=== PATIENT | male | born 1970 | race Hispanic/Latino ===

== ENCOUNTER 2018-06-13 14:24 | Emergency (ER) | payer MEDICARE ==
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
[2018-06-13] MEDS ORDERED: ONDANSETRON 4 MG/2 ML VIAL ONE (15:30)
[2018-06-13] MEDS ORDERED: MORPHINE 4 MG/ML SYR ONE (15:30)
[2018-06-13] MEDS ORDERED: NA CHLORIDE 0.9% 2,000 ML ONE (15:30)
[2018-06-13 16:01] LABS: Absolute Lymphocytes (CBC) 2.7 K/uL (0.7-4.9); Absolute Monocytes 0.5 K/uL (0.1-1.3); Absolute Neutrophil 3.7 K/uL (1.8-8.0); Basophils % 0.6 % (0-1.3); Hematocrit 42.6 % (39.6-49.0); MCH 28.8 pg (27.0-35.0); MPV 7.4 fL (7.6-11.3); Monocytes % 7.1 % (3.3-12.3); RBC Red Blood Cell Count 5.01 M/uL (4.33-5.43)
[2018-06-13 17:12] LABS: ALT/SGPT 13 U/L (12-78); AST/SGOT 22 U/L (15-37); Albumin 3.3 g/dL (3.4-5.0); Alkaline Phosphatase 63 U/L (45-117); Amylase Level 41 U/L (25-115); BUN Blood Urea Nitrogen 14 mg/dL (7-18); Bicarbonate 21 mmol/L (21-32); Bilirubin Direct < 0.1 mg/dL (0-0.2); Bilirubin Total 0.1 mg/dL (0.2-1.0); Glucose Level 76 mg/dL (74-106); Lipase 299 U/L (73-393); Potassium 4.3 mmol/L (3.5-5.1); Protein, Total 6.7 g/dL (6.4-8.2); Sodium Level 133 mmol/L (136-145)
[2018-06-13 17:13] LABS: Urine Blood NEGATIVE (NEG); Urine Glucose NEGATIVE (NEG); Urine Protein TRACE (NEG); Urine Specific Gravity 1.015 (1.005-1.030)
[2018-06-13 17:20] LABS: Urine Bacteria <20 /HPF (NONE SEEN); Urine Culture Reflex Order NOT NEEDED; Urine RBC <5 /HPF (NONE SEEN)
--- NOTE | 2018-06-13 19:18 | RAD REPORT ---
EXAM DESCRIPTION: CTAbdomen Pelvis W Contrast - 06/13/2018 7:02 pm CLINICAL HISTORY: Abdominal pain. right lower abdomen pain COMPARISON: Small Bowel Series dated 03/04/2018 TECHNIQUE: Biphasic CT imaging of the abdomen and pelvis was performed with 100 ml non-ionic IV cont rast. All CT scans are performed using dose optimization technique as appropriate and may include automated exposure control or mA/KV adjustment according to patient size. FINDINGS: The lung bases are clear. The liver, spleen, pancreas, adrenal glands and kidneys are within normal limits. 16 mm benign left r enal cyst. No bowel obstruction, free air, free fluid or abscess. The appendix is not identified as a discrete structure, however, no secondary findings of appendicitis are identified. No evidence of significan t lymphadenopathy. No suspicious bony findings. IMPRESSION: No acute intra-abdominal or pelvic finding.
[2018-06-13] MEDS ORDERED: DICYCLOMINE HCL 10 MG CAP ONE (19:33)
--- NOTE | 2018-06-13 19:56 | ER ---
Nurse's Notes [facility] Name: Rajat Camacho Age: 47 yrs Sex: Male : 1970 Arrival Date: 06/13/2018 Time: 14:28 Bed 26 Private MD: John Subramanian Diagnosis: Nausea and vomiting;Diarrhea, unspecified Presentation: 06/13 14:32 Presenting complaint: states: he has been hurting on his belly, RUQ, LUQ and RLL, hj comes and goes, for 6 months already; reports nausea and vomiting; reports fever and chills; diarrhea x 10 today;. Transition of care: patient was not received from another setting of care. Onset of symptoms was June 13, 2018. Risk Assessment: Do you want to hurt yourself or someone else? Patient reports no desire to harm self or others. Initial Sepsis Screen: Does the patient meet any 2 criteria? No. Patient's initial sepsis screen is negative. Does the patient have a suspected source of infection? No. Patient's initial sepsis screen is negative. Care prior to arrival: None. 14:32 Method Of Arrival: Ambulatory 14:32 Acuity: CARLIN 3 Triage Assessment: 14:37 General: Appears in no apparent distress. uncomfortable, Behavior is calm, cooperative, hj appropriate for age. Pain: Complains of pain in abdomen. GI: Reports upper abdominal pain, diarrhea, nausea. Historical: - Allergies: 14:37 No Known Drug Allergies; - Home Meds: 14:37 Depakote Oral [Active]; Topamax Oral [Active]; Phenobarbital Oral [Active]; Clonazepam Oral [Active]; carbetrol [Active]; 14:37 Janumet oral oral [Active]; Crestor oral oral [Active]; hj - PMHx: 14:37 epilepsy; - PSHx: 14:37 back surgery to correct a pinched nerve; Appendectomy; - Immunization history:: Adult Immunizations up to date. - Social history:: Smoking status: Patient/guardian denies using tobacco, Patient/guardian denies using alcohol. - Ebola Screening: : Patient negative for fever greater than or equal to 101.5 degrees Fahrenheit, and additional compatible Ebola Virus Disease symptoms Patient denies exposure to infectious person Patient denies travel to an Ebola-affected area in the days before illness onset. Screenin:38 Abuse screen: Denies threats or abuse. Denies injuries from another. Nutritional hj screening: No deficits noted. Tuberculosis screening: No symptoms or risk factors identified. Fall Risk None identified. Assessment: 14:38 GI: Bowel sounds 15:03 General: Appears uncomfortable, Behavior is calm, cooperative. Pain: Complains of pain mg2 in abdomen Pain does not radiate. Pain currently is 10 out of 10 on a pain scale. Quality of pain is described as aching, Pain began 6 months ago Is intermittent, Noted to be grimacing. Neuro: Level of Consciousness is awake, alert, obeys commands, Oriented to person, place, time, situation. Cardiovascular: Capillary refill < 3 seconds Patient's skin is warm and dry. Respiratory: Airway is patent Respiratory effort is even, unlabored, Respiratory pattern is regular, symmetrical. : No signs and/or symptoms were reported regarding the genitourinary system. EENT: No signs and/or symptoms were reported regarding the EENT system. Derm: Skin is intact, Skin is pink, warm \T\ dry. normal. Musculoskeletal: Circulation, motion, and sensation intact. 17:18 Reassessment: Patient appears in no apparent distress at this time. Patient and/or mg2 family updated on plan of care and expected duration. Pain level reassessed. Patient is alert, oriented x 3, equal unlabored respirations, skin warm/dry/pink. 18:51 Reassessment: patient in ct scan. mg2 Vital Signs: 14:38 BP 125 / 81; Pulse 89; Resp 18; Temp 98.6(TE); Pulse Ox 100% on R/A; Weight 108.86 kg; hj Height 6 ft. 2 in. (187.96 cm); Pain 10/10; 16:16 BP 118 / 68; Pulse 78; Resp 18; Pulse Ox 95% ; mg2 17:17 BP 122 / 69; Pulse 76; Resp 17; Pulse Ox 96% on R/A; Pain 3/10; mg2 19:42 BP 134 / 83; Pulse 82; Resp 18; Pulse Ox 100% on R/A; Pain 3/10; mg2 14:38 Body Mass Index 30.81 (108.86 kg, 187.96 cm) ED Course: 14:28 Patient arrived in ED. rg4 14:29 Aglieco, John, DO is Private Physician. rg4 14:34 Triage completed. hj 14:38 Arm band placed on right wrist. hj 14:38 Patient has correct armband on for positive identification. Placed in gown. Bed in low hj position. Call light in reach. Side rails up X 1. Adult w/ patient. 15:02 Dominick Renteria, ARIANNA is Primary Nurse. mg2 15:12 Tee Wilson PA is PHCP. cp 15:12 Joey Kamara MD is Attending Physician. cp 17:18 Inserted saline lock: 20 gauge in right forearm, using aseptic technique. Blood mg2 collected. 18:[address] mw3 18:51 Inserted saline lock: 22 gauge in left forearm, using aseptic technique. mg2 19:02 CT Abd/Pelvis - W/Contrast In Process Unspecified. EDMS 19:55 Robert Schultz MD is Referral Physician. cp Administered Medications: 15:39 Drug: morphine 2 mg Route: IVP; Site: right forearm; mg2 16:43 Follow up: Response: No adverse reaction; Pain is decreased mg2 15:40 Drug: NS 0.9% 1000 ml Route: IV; Rate: 1000 ml; Site: right forearm; mg2 16:43 Follow up: Response: No adverse reaction; IV Status: Completed infusion mg2 15:40 Drug: Zofran 4 mg Route: IVP; Site: right forearm; mg2 16:43 Follow up: Response: No adverse reaction; Nausea is decreased mg2 16:16 Drug: NS 0.9% 1000 ml Route: IV; Rate: 125 ml/hr; Site: right forearm; mg2 20:36 Follow up: Response: No adverse reaction; IV Status: Order to discontinue infusion mg2 19:37 Drug: Bentyl 20 mg Route: PO; mg2 20:36 Follow up: Response: No adverse reaction mg2 20:36 Drug: LoMOTIL 2 tabs Route: PO; mg2 20:36 Follow up: Response: No adverse reaction; Medication administered at discharge. mg2 Outcome: 19:55 Discharge ordered by . cp 20:38 Patient left the ED. mg2 Signatures: Dispatcher [employer] EDMS Delvin Manning RN RN hj Tee Wilson PA PA Jeri Greer rg4 Marianela Lora RN RN tl3 Dominick Renteria RN RN mg2 Emilia Longo mw3 Corrections: (The following items were deleted from the chart) 14:41 14:38 Pulse 89bpm; Resp 18bpm; Pulse Ox 100% RA; Temp 98.6F Temporal; 108.86 kg; Height hj 6 ft. 2 in.; BMI: 30.8; Pain 10/10; hj 16:24 16:23 BP 113 / 81; Pulse 76bpm; Resp 18bpm; Pulse Ox 99%; tl3 tl3
--- NOTE | 2018-06-13 19:56 | EDPHYS ---
Physician Documentation [facility] Name: Rajat Camacho Age: 47 yrs Sex: Male : 1970 Arrival Date: 06/13/2018 Time: 14:28 Bed 26 Private MD: John Subramanian ED Physician Joey Kamara HPI: 06/13 15:22 This 47 yrs old Male presents to ER via Ambulatory with complaints of cp Abdominal Pain. 15:22 The patient presents with abdominal pain in the periumbilical area. right lower cp quadrant. 15:22 Onset: The symptoms/episode began/occurred 6 month(s) ago, and became worse today. cp Historical: - Allergies: 14:37 No Known Drug Allergies; hj - Home Meds: 14:37 Depakote Oral [Active]; Topamax Oral [Active]; Phenobarbital Oral [Active]; Clonazepam hj Oral [Active]; carbetrol [Active]; 14:37 Janumet oral oral [Active]; Crestor oral oral [Active]; hj - PMHx: 14:37 epilepsy; hj - PSHx: 14:37 back surgery to correct a pinched nerve; Appendectomy; hj - Immunization history:: Adult Immunizations up to date. - Social history:: Smoking status: Patient/guardian denies using tobacco, Patient/guardian denies using alcohol. - Ebola Screening: : Patient negative for fever greater than or equal to 101.5 degrees Fahrenheit, and additional compatible Ebola Virus Disease symptoms Patient denies exposure to infectious person Patient denies travel to an Ebola-affected area in the 21 days before illness onset. ROS: 15:30 Constitutional: Negative for body aches, chills, fever, poor PO intake. cp 15:30 Eyes: Negative for injury, pain, redness, and discharge. cp Exam: 15:42 Constitutional: The patient appears in no acute distress, alert, awake, non-toxic, well cp developed, well nourished. 15:42 Head/Face: Normocephalic, atraumatic. cp 15:42 Eyes: Periorbital structures: appear normal, Conjunctiva: normal, no exudate, no injection, Sclera: no appreciated abnormality, Lids and lashes: appear normal, bilaterally. 15:42 ENT: External ear(s): are unremarkable, Nose: is normal, Mouth: Lips: moist, Oral mucosa: pink and intact, moist, Posterior pharynx: is normal, airway is patent, no erythema, no exudate. 15:42 Neck: ROM/movement: is normal, is supple, without pain, no range of motions limitations, no nuchal rigidity. 15:42 Chest/axilla: Inspection: normal, Palpation: is normal, no crepitus, no tenderness. 15:42 Cardiovascular: Rate: normal, Rhythm: regular. 15:42 Respiratory: the patient does not display signs of respiratory distress, Respirations: normal, no use of accessory muscles, no retractions, no splinting, no tachypnea, labored breathing, is not present, Breath sounds: are clear throughout, no decreased breath sounds, no stridor, no wheezing. 15:42 Abdomen/GI: Inspection: abdomen appears normal, Bowel sounds: active, all quadrants, Palpation: soft, in all quadrants, moderate abdominal tenderness, in the umbilical area and right lower quadrant, rebound tenderness, is not appreciated, voluntary guarding, is elicited in the umbilical area and right lower quadrant. 15:42 Back: CVA tenderness, is absent. 15:42 Skin: cellulitis, is not appreciated, no rash present. 15:42 Neuro: Orientation: to person, place \T\ time. Mentation: lucid, able to follow commands, Cerebellar function: is grossly normal, Motor: moves all fours, strength is normal, Sensation: no obvious gross deficits. Vital Signs: 14:38 BP 125 / 81; Pulse 89; Resp 18; Temp 98.6(TE); Pulse Ox 100% on R/A; Weight 108.86 kg; hj Height 6 ft. 2 in. (187.96 cm); Pain 10/10; 16:16 BP 118 / 68; Pulse 78; Resp 18; Pulse Ox 95% ; mg2 17:17 BP 122 / 69; Pulse 76; Resp 17; Pulse Ox 96% on R/A; Pain 3/10; mg2 19:42 BP 134 / 83; Pulse 82; Resp 18; Pulse Ox 100% on R/A; Pain 3/10; mg2 14:38 Body Mass Index 30.81 (108.86 kg, 187.96 cm) MDM: 15:12 Patient medically screened. cp 19:54 Data reviewed: vital signs, nurses notes, lab test result(s), radiologic studies, CT cp scan. 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 Response to treatment: the patient's symptoms have markedly improved after treatment, and as a result, I will discharge patient. Special discussion: Based on the patient's Hx, exam, and Dx evaluation, there is no indication for emergent surgery or inpatient Tx. It is understood by the patient/guardian that if the Sx's persist or worsen they need to return immediately for re-evaluation. 06/13 15:19 Order name: Amylase, Serum; Complete Time: 17: 06/13 15:19 Order name: Basic Metabolic Panel; Complete Time: 17: 06/13 17:26 Interpretation: Normal except: NA 133. 06/13 15:19 Order name: CBC with Diff; Complete Time: 16:18 06/13 16:19 Interpretation: Normal except: MPV 7.4. 06/13 15:19 Order name: Creatinine for Radiology; Complete Time: 17: 06/13 15:19 Order name: Hepatic Function; Complete Time: 17: 06/13 17:27 Interpretation: Normal except: BILIT 0.1; ALB 3.3; A/G 1.0. 06/13 15:19 Order name: Lipase; Complete Time: 17: 06/13 15:19 Order name: Urine Microscopic Only; Complete Time: 17: 06/13 17:27 Interpretation: Normal except: SQEPI 5-10. 06/13 15:19 Order name: CT Abd/Pelvis - W/Contrast; Complete Time: 19:24 06/13 19:24 Interpretation: Report reviewed. 06/13 17:00 Order name: Urine Dipstick--Ancillary (enter results); Complete Time: 17:26 06/13 15:19 Order name: IV Saline Lock; Complete Time: 15:24 06/13 15:19 Order name: Labs collected and sent; Complete Time: 15:24 06/13 15:19 Order name: Urine Dipstick-Ancillary (obtain specimen); Complete Time: 16:59 cp 06/13 15:53 Order name: Labs - recollect needed; Complete Time: 16:43 eb 06/13 19:25 Order name: PO challenge; Complete Time: 19:38 cp Administered Medications: 15:39 Drug: morphine 2 mg Route: IVP; Site: right forearm; mg2 16:43 Follow up: Response: No adverse reaction; Pain is decreased mg2 15:40 Drug: NS 0.9% 1000 ml Route: IV; Rate: 1000 ml; Site: right forearm; mg2 16:43 Follow up: Response: No adverse reaction; IV Status: Completed infusion mg2 15:40 Drug: Zofran 4 mg Route: IVP; Site: right forearm; mg2 16:43 Follow up: Response: No adverse reaction; Nausea is decreased mg2 16:16 Drug: NS 0.9% 1000 ml Route: IV; Rate: 125 ml/hr; Site: right forearm; mg2 20:36 Follow up: Response: No adverse reaction; IV Status: Order to discontinue infusion mg2 19:37 Drug: Bentyl 20 mg Route: PO; mg2 20:36 Follow up: Response: No adverse reaction mg2 20:36 Drug: LoMOTIL 2 tabs Route: PO; mg2 20:36 Follow up: Response: No adverse reaction; Medication administered at discharge. mg2 Disposition: 06/13/18 19:55 Discharged to Home. Impression: Nausea and vomiting, Diarrhea, unspecified. - Condition is Stable. - Discharge Instructions: Food Choices to Help Relieve Diarrhea, Adult, Diarrhea, Adult, Nausea and Vomiting, Adult. - Prescriptions for Zofran 4 mg Oral Tablet - take 1 tablet by ORAL route every 12 hours As needed; 20 tablet. Lomotil 2.5- 0.025 mg Oral Tablet - take 2 tablet by ORAL route once daily As needed; 20 tablet. - Medication Reconciliation Form, Thank You Letter, Antibiotic Education, Prescription Opioid Use form. - Follow up: Robert Schultz MD; When: 1 - 2 days; Reason: Recheck today's complaints. - Problem is an ongoing problem. - Symptoms have improved. Addendum: 06/24/2018 07:24 Co-signature as Attending Physician, Joey Kamara MD I agree with the assessment and k plan of care. Signatures: Dispatcher [employer] EDTN Joey Kamara MD MD kdr Joaquin, Delvin, RN RN hj Tee Wilson PA PA cp Kaylee Us Michele, RN RN mg2 Corrections: (The following items were deleted from the chart) 06/13 16:20 15:22 Onset: The symptoms/episode began/occurred gradually, and became worse today, cp cp 20:38 19:55 06/13/2018 19:55 Discharged to Home. Impression: Nausea and vomiting; Diarrhea, mg2 unspecified. Condition is Stable. Forms are Medication Reconciliation Form, Thank You Letter, Antibiotic Education, Prescription Opioid Use. Follow up: Robert Schultz; When: 1 - 2 days; Reason: Recheck today's complaints. Problem is an ongoing problem. Symptoms have improved. cp
[2018-06-13] MEDS ORDERED: DIPHENOX/ATROP SULF 1 TAB PO ONE (20:03)
== END 2018-06-13 20:38 | disposition home or self-care (01) ==
LOC: ER 14:24
DX: R11.2 Nausea with vomiting, unspecified (principal); R19.7 Diarrhea, unspecified
CPT/HCPCS: 36415; 74177; 80048; 80076; 82150; 83690; 85025; 96361; 96374; 96375; 99284; J2405; J7030; Q9967; 81003; 81015

== ENCOUNTER 2018-11-24 15:46 | Emergency (ER) | payer MEDICARE ==
--- OUTSIDE RECORDS SUMMARY | 2018-11-24 15:49 | XMS REPORT | Continuity of Care Document ---
:1970 Author Organization Interface Problems Problem Status Onset Classification Date Comments Source Date Reported BACK PAIN Active 10/21/20 [facility] Discharge 10/21/20 10/24/2017 [facility] Acute lumbar myofascial strain Discharge 10/21/20 10/24/2017 [facility]: [facility] Acute post-traumatic headache Diabetes Resolved Problem 10/24/2017 [facility] Epilepsia Resolved Problem 10/24/2017 [facility] High Resolved Problem 10/24/2017 [facility] Medications Medication Details Route Status Patient Ordering Order Source Instructions Provider Date Methocarbamol 1,000 mg=2 Active [facility] 500 MG Oral tab, PO, 017 [facility] Tablet [Robaxin] QID, X 3 day, # 24 tab, 0 Refill(s) tramadol 50 mg=1 Active [facility] hydrochloride 50 tab, PO, 017 [facility] Oral Tablet Q4H, PRN [Ultram] pain, X 3 day, # 20 tab, 0 Refill(s) Zofran 4 mg, Inactive [facility] Route: [address] [place] [address] IVP, Drug form: INJ, ONCE, Dosing Weight 77.273, kg, Priority: STAT, Start date: 10/21/17 8:40:00 [employer], Stop date: 10/21/17 8:40:00 [employer] Saline Flush 10 mL, Inactive [facility] 0.9% Route: [address] [place] [address] IVP, Drug Form: INJ, Dosing Weight 77.273, kg, PRN, PRN Line Flush, Start date: 10/21/17 8:40:00 [employer], Duration: 30 day, Stop date: 11/20/17 8:39:00 CSTNotes: (Same as: BD Posiflush) Morphine 4 mg, Inactive [facility] Route: [address] [place] [address] IVP, ONCE, Dosing Weight 77.273, kg, Priority: STAT, Start date: 10/21/17 8:40:00 [employer], Stop date: 10/21/17 8:40:00 [employer] Allergies, Adverse Reactions, Alerts Substance Category Reaction Severity Reaction Status Date Comments Source type Reported Immunizations Immunization Date Given Site Status Last Updated Comments Source Results Order Name Results Value Reference Date Interpretation Comments Source Range DRUG SCREEN UDS Note See Note 10/21 [facility] (10/21/17 9:59 AM) DRUG SCREEN U Phencyc Negative Negative 10/21 [facility] (10/21/17 9:59 AM) DRUG SCREEN U Cannab Scr Negative Negative 10/21 [facility] *NA* (10/21/17 9:59 AM) DRUG SCREEN U Cocaine Negative Negative 10/21 [facility]NA* (10/21/17 9:59 AM) DRUG SCREEN U Amph Scr Negative Negative 10/21 [facility] *NA* (10/21/17 9:59 AM) DRUG SCREEN U Benzodia Negative Negative 10/21 [facility]NA* (10/21/17 9:59 AM) DRUG SCREEN U Sophy Scr Positive Negative 10/21 [facility] *ABN* (10/21/17 9:59 AM) DRUG SCREEN U Opiate Scr Positive Negative 10/21 [facility] *ABN* (10/21/17 9:59 AM) URINE AND UA <=1.0 0.1 - 1.0 10/21 [facility] STOOL Urobilinogen mg/dL [facility] URINE AND UA Mucus Few /LPF None Seen 10/21 [facility] STOOL /LPF /2016 [facility] URINE AND UA WBC 1 /HPF 0 - 5 10/21 [facility] STOOL [facility] URINE AND UA RBC null 0 - 2 10/21 [facility] STOOL [facility] URINE AND UA Blood Negative Negative 10/21 [facility] STOOL [facility] (10/21/17 9:59 AM) URINE AND UA Ketones Trace Negative 10/21 [facility] STOOL mg/dL mg/dL [facility] URINE AND UA Bili Negative Negative 10/21 [facility] STOOL [facility] *NA* (10/21/17 9:59 AM) URINE AND UA Protein Negative Negative 10/21 [facility] ST[facility]OL mg/dL mg/dL [facility] URINE AND UA Glucose 50 mg/dL Negative 10/21 [facility] STOOL mg/dL /2016 [facility] URINE AND UA Spec Grav 1.024 <=1.030 10/21 [facility] URINE AND UA pH 7.0 5.0 - 8.0 10/21 [facility] URINE AND UA Nitrite Negative Negative 10/21 [facility] (10/21/17 9:59 AM) URINE AND UA Leuk Est Negative Negative 10/21 [facility] (10/21/17 9:59 AM) URINE AND UA Sq Epi Occasional Few /LPF 10/21 [facility] STOOL /LPF [facility] URINE AND UA Turbidity Slight Clear 10/21 [facility] *ABN* (10/21/17 9:59 AM) URINE AND UA Color Yellow Yellow 10/21 [facility] *NA* (10/21/17 9:59 AM) CARDIAC Total CK 371 unit/L 12 10/21 [facility] CHEM PANEL eGFR 103 10/21 Result Comment: [...] is not recommended in the following populations: [facility] 3m2 Individuals with unstable creatinine concentrations, including [...] BUN 19 mg/dL 7 - 22 10/21 Hospital CHEM PANEL Glucose Lvl 96 mg/dL 70 - 99 10/21 [facility] Hospital CHEM PANEL Creatinine 0.84 mg/dL 0.50 - 10/21 [facility] Lvl 1.40 Hospital CHEM PANEL Sodium Lvl 140 meq/L 135 - 145 10/21 Hospital CHEM PANEL Potassium 3.6 meq/L 3.5 - 5.1 10/21 Hospital CHEM PANEL Bili Total 0.2 mg/dL [...] PANEL AGAP 10.6 meq/L 10.0 - 10/21 [facility] 20.0 [facility] CHEM PANEL Globulin 4.1 g/dL 2.7 - 4.2 10/21 Hospital CHEM PANEL B/C Ratio 23 6 - 25 10/21 Hospital HEMATOLOGY MCHC 33.2 g/dL 32.0 - 10/21 [facility] 36.0 [facility] HEMATOLOGY Platelet 136 K/CMM 133 - 450 10/21 Hospital HEMATOLOGY RDW 14.5 % 11.5 - 10/21 [facility] 14.5 [facility] HEMATOLOGY MPV 7.0 fL 7.4 - 10.4 10/21 Hospital HEMATOLOGY WBC 4.8 K/CMM 3.7 - 10.4 10/21 Hospital HEMATOLOGY MCH 28.2 pg 27.0 - 10/21 [facility] 31.0 [facility] HEMATOLOGY MCV 85.1 fL 80.0 - 10/21 [facility] 94.0 Hospital HEMATOLOGY Hct 40.1 % 42.0 - 10/21 [facility] 54.0 /2016 Hospital HEMATOLOGY Hgb 13.3 g/dL 14.0 - 10/21 [facility] 18.0 /2016 Hospital HEMATOLOGY RBC 4.71 M/CMM 4.70 - 10/21 [facility] 6.10 [facility] HEMATOLOGY Segs 52.6 % 45.0 - 10/21 [facility] 75.0 /2016 Hospital HEMATOLOGY Monocytes 7.9 % 2.0 - 12.0 10/21 [facility] /2016 Hospital HEMATOLOGY Lymphocytes 38.4 % 20.0 - 10/21 [facility] 40.0 /2016 Hospital HEMATOLOGY Segs-Bands # 2.5 K/CMM 1.5 - 8.1 10/21 [facility] /2016 [facility] HEMATOLOGY Monocytes # 0.4 K/CMM 0.0 - 0.8 10/21 [facility] HEMATOLOGY Eosinophils 0.7 % 0.0 - 4.0 10/21 [facility] HEMATOLOGY Basophils 0.4 % 0.0 - 1.0 10/21 [facility] HEMATOLOGY Lymphocytes 1.9 K/CMM 1.0 - 5.5 10/21 [facility] # /2016 Hospital TOXICOLOGY Etoh (%) null 10/21 [facility] TOXICOLOGY Ethanol Lvl null 10/21 [facility] TOXICOLOGY Valproic 79 ug/ml 50 - 100 10/21 [facility] Acid Lvl /2016 [facility] Spine Spine lumbar Study: Spine lumbar series DX 10/21/2017 8:40 AM [employer] - [facility] lumbar series DX - Hospital series DX Patient Name: STACI OLMSTEAD MR: [id number] Read by: Ortega Desai MD Dictated Date/time: [...] arthrosis without acute fracture or dislocation. SL: [id number] Brain wo Brain wo STUDY: Brain wo contrast CT 10/21/2017 8:40 AM [employer] 10/21 - [facility] contrast CT contrast CT /2016 - [facility] Ordering Physician: Diana Gonzalez VOCATIONAL COUNSELOR Read by: Ortega Desai MD Dictated Date/time: 10/21/17 09:07 Patient Name: STACI OLMSTEAD MR: [id number] Electronically Signed by: Ortega Desai MD 10/21/17 [...] appropriate atrophy without acute intracranial abnormality. SL: [id number] Vital Signs Vital Sign Value Date Comments Source Respitory Rate 18 10/21/2017 [facility] Heart Rate 87 10/21/2017 [facility] Systolic (mm Hg) 142 10/21/2017 [facility] Diastolic (mm Hg) 86 10/21/2017 [facility] Temperature Oral (F) 98.8 F 10/21/2017 [facility] Temperature Oral (F) 99 F 10/21/2017 [facility] Heart Rate 86 10/21/2017 [facility] Respitory Rate 18 10/21/2017 [facility] Height 170.18 cm 10/21/2017 [facility] Systolic (mm Hg) 152 10/21/2017 [facility] Diastolic (mm Hg) 78 10/21/2017 [facility] Weight 77.273 10/21/2017 [facility] BMI Calculated 26.68 10/21/2017 [facility] Encounters Location Location Encounter Encounter Reason Attending ADM DC Status Source Details Type Number For Provider Date [id number] [facility] 10[facility]21 10/21 [facility] Asael Penan /2016 [facility] Procedures Procedure Code Date Perfomer Comments Source History of [id number] [facility] Procedure<sup>1</sup> [id number] back surgery [facility]
[2018-11-24 16:28] LABS: Absolute Lymphocytes (CBC) 1.6 K/uL (0.7-4.9); Absolute Monocytes 0.4 K/uL (0.1-1.3); Absolute Neutrophil 2.2 K/uL (1.8-8.0); Basophils % 0.3 % (0-1.3); Eosinophils % 1.3 % (0-4.4); Hematocrit 40.8 % (39.6-49.0); Lymphocytes % 38.7 % (15.3-44.8); MPV 7.3 fL (7.6-11.3); Monocytes % 8.4 % (3.3-12.3); RBC Red Blood Cell Count 4.63 M/uL (4.33-5.43)
[2018-11-24 16:39] LABS: ALT/SGPT 15 U/L (12-78); AST/SGOT 17 U/L (15-37); Albumin 3.2 g/dL (3.4-5.0); Alkaline Phosphatase 75 U/L (45-117); BUN Blood Urea Nitrogen 13 mg/dL (7-18); Bicarbonate 26 mmol/L (21-32); Bilirubin Direct < 0.1 mg/dL (0-0.2); Bilirubin Total 0.1 mg/dL (0.2-1.0); Glucose Level 82 mg/dL (74-106); Sodium Level 144 mmol/L (136-145)
[2018-11-24 16:39] LABS: Barbiturates POSITIVE (NEGATIVE); Benzodiazepines NEGATIVE (NEGATIVE); Cocaine NEGATIVE (NEGATIVE); METHAMPHETAM NEGATIVE (NEGATIVE); Methadone NEGATIVE (NEGATIVE); Opiates NEGATIVE (NEGATIVE); Phencyclidine NEGATIVE (NEGATIVE); THC Cannibis NEGATIVE (NEGATIVE)
--- NOTE | 2018-11-24 17:03 | RAD REPORT ---
EXAM DESCRIPTION: CT - [id number] - 11/24/2018 4:47 pm CLINICAL HISTORY: Trauma, head and neck injury. PAIN COMPARISON: <Comparisons> TECHNIQUE: Axial 5 mm thick images of the head were obtained. Axial 2 mm thick images of the cervical spine were obtained with sagittal and coronal reconstruction images generated and reviewed. All CT scans are performed using dose optimization technique as appropriate and may include automated exposure control or mA/KV adjustment according to patient size. FINDINGS: CT HEAD WITHOUT CONTRAST: No acute hemorrhage, hydrocephalus or extra-axial collection is identified.No areas of brain edema or midline shift. The paranasal sinuses and mastoids are clear.The calvarium is intact. Left posterior scalp hematoma n oted. CT CERVICAL SPINE WITHOUT CONTRAST: No fracture or subluxation.Mild lower cervical degenerative changes.No prevertebral soft tissues swel ling is identified. IMPRESSION: No acute intracranial or cervical spine findings.
--- NOTE | 2018-11-24 17:28 | RAD REPORT ---
EXAM DESCRIPTION: RAD - Pelvis - 11/24/2018 5:03 pm CLINICAL HISTORY: TRAUMA Pain COMPARISON: None FINDINGS: AP pelvis and right hip, multiple views are submitted. Prominent osteoarthritis is present in both hips. No acute fracture is discerned.
[2018-11-24 17:29] LABS: Urine Blood NEGATIVE (NEG); Urine Glucose NEGATIVE (NEG); Urine Protein 2+ (NEG); Urine Specific Gravity 1.025 (1.005-1.030)
--- NOTE | 2018-11-24 18:03 | ER ---
Nurse's Notes [facility] Name: Rajat Camacho Age: 48 yrs Sex: Male : 1970 Arrival Date: 11/24/2018 Time: 15:48 Bed 26 Private MD: Diagnosis: Syncope and collapse;Laceration without foreign body of scalp Presentation: 11/24 15:49 Presenting complaint: EMS states: He was at a green party and fell and now has a laceration ed1 on his head. He has a history of seizures and they are not sure if he had a seizure or slipped. Transition of care: patient was not received from another setting of care. Complicating Factors: There are no complicating factors for this patient. Onset of symptoms was November 24, 2018. Risk Assessment: Do you want to hurt yourself or someone else? Patient reports no desire to harm self or others. Initial Sepsis Screen: Does the patient meet any 2 criteria? No. Patient's initial sepsis screen is negative. Does the patient have a suspected source of infection? No. Patient's initial sepsis screen is negative. Care prior to arrival: None. 15:49 Method Of Arrival: EMS: [facility] ed1 16:14 Acuity: CARLIN 3 iw Triage Assessment: 15:54 General: Appears in no apparent distress. Behavior is calm, cooperative. Pain: ed1 Complains of pain in occipital area Pain does not radiate. Pain currently is 6 out of 10 on a pain scale. Quality of pain is described as aching, Pain began suddenly, 30 min ago. Injury Description: Laceration sustained to occipital area is contaminated, 2.6 to 7.5 cm long, was sustained 30-60 minutes ago. is bleeding a small amount a dressing was applied. Historical: - Allergies: 15:54 PENICILLINS; ed1 - Home Meds: 15:54 Clonazepam Oral [Active]; Crestor Oral [Active]; Depakote Oral [Active]; Janumet Oral ed1 [Active]; phenobarbital Oral [Active]; Topamax Oral [Active]; - PMHx: 15:54 Seizures; ed1 - PSHx: 15:54 back surgery to correct a pinched nerve; Appendectomy; ed1 - Immunization history:: Adult Immunizations up to date. - Social history:: Smoking status: Patient/guardian denies using tobacco. - Ebola Screening: : Patient negative for fever greater than or equal to 101.5 degrees Fahrenheit, and additional compatible Ebola Virus Disease symptoms Patient denies exposure to infectious person Patient denies travel to an Ebola-affected area in the 21 days before illness onset. Screenin:57 Abuse screen: Denies threats or abuse. Denies injuries from another. Nutritional ed1 screening: No deficits noted. Tuberculosis screening: No symptoms or risk factors identified. Fall Risk Fall in past 12 months (25 points). Secondary diagnosis (15 points) seizures, No IV (0 pts). Ambulatory Aid- None/Bed Rest/Nurse Assist (0 pts). Gait- Normal/Bed Rest/Wheelchair (0 pts) Mental Status- Overestimates/Forgets Limitations (15 pts.). Total Victoria Fall Scale indicates High Risk Score (45 or more points). Fall prevention measures have been instituted. Side Rails Up X 2 Placed Close to Nursing Station Frequent Obs/Assessments Occuring Family Present and informed to notify staff if the need to leave the bedside As available patient and family educated on Fall Prevention Program and Strategies. Assessment: 15:57 General: Appears in no apparent distress. Behavior is calm, cooperative. Pain: ed1 Complains of pain in occipital area Pain does not radiate. Pain currently is 6 out of 10 on a pain scale. Quality of pain is described as aching, Pain began suddenly, 30 min ago. Is continuous. Neuro: Level of Consciousness is awake, alert, Oriented to person, place, reports this is normal orientation for the patient.. Cardiovascular: Denies chest pain, Heart tones S1 S2 present. Respiratory: Airway is patent Respiratory effort is even, unlabored, Respiratory pattern is regular, symmetrical, Breath sounds are clear bilaterally. GI: Patient currently denies nausea, vomiting. : No signs and/or symptoms were reported regarding the genitourinary system. EENT: No signs and/or symptoms were reported regarding the EENT system. Derm: Skin is healthy with good turgor, Skin is dry, Skin is normal, Skin temperature is warm. Musculoskeletal: Circulation, motion, and sensation intact. Capillary refill < 3 seconds, in bilateral fingers. Range of motion: intact in all extremities. Injury Description: Laceration sustained to occipital area is contaminated, 0.5 to 2.5 cm long, was sustained 30-60 minutes ago. is bleeding a small amount a dressing was applied. 16:05 Reassessment: Patient appears in no apparent distress at this time. I agree with above iw assessment by Matthew Preston LVN. 17:04 Reassessment: Patient appears in no apparent distress at this time. No changes from ed1 previously documented assessment. Patient and/or family updated on plan of care and expected duration. Pain level reassessed. Neuro: Level of Consciousness is awake, alert, obeys commands, Oriented to person, place. 17:09 Reassessment: Nuzhat [phone]. ed1 18:15 Reassessment: Patient appears in no apparent distress at this time. No changes from ed1 previously documented assessment. Patient and/or family updated on plan of care and expected duration. Pain level reassessed. Patient is alert, oriented x 3, equal unlabored respirations, skin warm/dry/pink. Vital Signs: 15:54 BP 153 / 87; Pulse 93; Resp 18; Temp 98.8(O); Pulse Ox 99% on R/A; Weight 104.33 kg ed1 (R); Height 6 ft. 0 in. (182.88 cm) (R); Pain 6/10; 16:24 BP 132 / 80; Pulse 89; Resp 16; Pulse Ox 98% on R/A; mt 17:04 BP 136 / 81; Pulse 95; Resp 18; Pulse Ox 98% on R/A; Pain 6/10; ed1 18:04 BP 134 / 75; Pulse 89; Resp 16; Pulse Ox 98% on R/A; mt 18:15 BP 129 / 76; Pulse 83; Resp 17; Temp 97.9(O); Pulse Ox 100% on R/A; Pain 4/10; ed1 15:54 Body Mass Index 31.19 (104.33 kg, 182.88 cm) ed1 ED Course: 15:48 Patient arrived in ED. ed1 15:50 Johnnie Wilkerson PA is PHCP. jr8 15:50 Tee Duncan MD is Attending Physician. jr8 15:54 Arm band placed on right wrist. ed1 15:57 Patient has correct armband on for positive identification. Bed in low position. Call ed1 light in reach. Side rails up X2. Seizure precautions initiated. Pulse ox on. NIBP on. 16:00 Adelita Preston LVN is Primary Nurse. ed1 16:14 Triage completed. iw 16:47 CT Head C Spine In Process Unspecified. EDMS 17:02 X-ray completed. Patient tolerated procedure well. Patient moved back from radiology. sg4 17:03 XRAY Pelvis In Process Unspecified. EDMS 17:03 XRAY Hip RIGHT 2 view In Process Unspecified. EDMS 17:12 Basic Metabolic Panel Sent. ed1 17:12 Acetaminophen Sent. ed1 17:13 Salicylate Sent. ed1 18:15 No provider procedures requiring assistance completed. Patient did not have IV access ed1 during this emergency room visit. Administered Medications: No medications were administered Point of Care Testing: Blood Glucose: 16:17 Blood Glucose: 87 mg/dL; ed1 Ranges: Outcome: 18:03 Discharge ordered by MD. pittman 18:15 Discharged to home via wheelchair, with family. ed1 18:15 Condition: good 18:15 Discharge instructions given to patient, family, Instructed on discharge instructions, follow up and referral plans. wound care, Demonstrated understanding of instructions, follow-up care, wound care. 18:16 Patient left the ED. ed1 Signatures: Dispatcher [employer] Ely Tovar RN RN iw Adelita Preston LVN LVN ed1 Johnnie Wilkerson PA PA jr8 Thompson, Moriah mt Garcia, Susana sg4
--- NOTE | 2018-11-24 18:04 | EDPHYS ---
Physician Documentation [facility] Name: Rajat Camacho Age: 48 yrs Sex: Male : 1970 Arrival Date: 11/24/2018 Time: 15:48 Bed 26 Private MD: ED Physician Tee Duncan HPI: 11/24 17:03 This 48 yrs old Male presents to ER via EMS with complaints of Laceration To jr8 Head. 17:03 The patient has experienced syncope, collapsed, lost consciousness. Onset: The jr8 symptoms/episode began/occurred acutely, today. Duration: This was a single episode, that lasted 10 second(s). Context: the episode(s) was witnessed, by family, occurred at home, occurred while the patient was standing, Just prior to the episode the patient experienced no apparent symptoms. Associated injury: Head/face: laceration, 5 cm(s). Associated signs and symptoms: The patient has no apparent associated signs or symptoms. Current symptoms: Currently, the patient is not experiencing any symptoms, the patient feels back to baseline, no decreased level of consciousness, no confusion, no dysphasia, no headache, no paralysis, no visual changes. The patient has not experienced similar symptoms in the past. The patient has not recently seen a physician. Patient with seizure history. Was at a democrat standing and talking. Collapsed all of a sudden. No focal or general shaking per family member. Stated that this was not like his other seizures in the past. Has been compliant with his medications. Denies any preceding events. Family stated that patient is at baseline now. Complains of pain to back of head and groin pain . Historical: - Allergies: 15:54 PENICILLINS; ed1 - Home Meds: 15:54 Clonazepam Oral [Active]; Crestor Oral [Active]; Depakote Oral [Active]; Janumet Oral ed1 [Active]; phenobarbital Oral [Active]; Topamax Oral [Active]; - PMHx: 15:54 Seizures; ed1 - PSHx: 15:54 back surgery to correct a pinched nerve; Appendectomy; ed1 - Immunization history:: Adult Immunizations up to date. - Social history:: Smoking status: Patient/guardian denies using tobacco. - Ebola Screening: : Patient negative for fever greater than or equal to 101.5 degrees Fahrenheit, and additional compatible Ebola Virus Disease symptoms Patient denies exposure to infectious person Patient denies travel to an Ebola-affected area in the 21 days before illness onset. ROS: 17:53 Eyes: Negative for injury, pain, redness, and discharge, ENT: Negative for injury, jr8 pain, and discharge, Neck: Negative for injury, pain, and swelling, Cardiovascular: Negative for chest pain, palpitations, and edema, Respiratory: Negative for shortness of breath, cough, wheezing, and pleuritic chest pain, Abdomen/GI: Negative for abdominal pain, nausea, vomiting, diarrhea, and constipation, Back: Negative for injury and pain. 17:53 MS/extremity: Positive for pain, tenderness, of the right hip. 17:53 Skin: Positive for laceration(s), of the scalp. 17:53 Neuro: Positive for headache, loss of consciousness, syncope. Exam: 17:53 Eyes: Pupils equal round and reactive to light, extra-ocular motions intact. Lids and jr8 lashes normal. Conjunctiva and sclera are non-icteric and not injected. Cornea within normal limits. Periorbital areas with no swelling, redness, or edema. ENT: Nares patent. No nasal discharge, no septal abnormalities noted. Tympanic membranes are normal and external auditory canals are clear. Oropharynx with no redness, swelling, or masses, exudates, or evidence of obstruction, uvula midline. Mucous membranes moist. Neck: Trachea midline, no thyromegaly or masses palpated, and no cervical lymphadenopathy. Supple, full range of motion without nuchal rigidity, or vertebral point tenderness. No Meningismus. Cardiovascular: Regular rate and rhythm with a normal S1 and S2. No gallops, murmurs, or rubs. Normal PMI, no JVD. No pulse deficits. Respiratory: Lungs have equal breath sounds bilaterally, clear to auscultation and percussion. No rales, rhonchi or wheezes noted. No increased work of breathing, no retractions or nasal flaring. Abdomen/GI: Soft, non-tender, with normal bowel sounds. No distension or tympany. No guarding or rebound. No evidence of tenderness throughout. Back: No spinal tenderness. No costovertebral tenderness. Full range of motion. Skin: Warm, dry with normal turgor. Normal color with no rashes, no lesions, and no evidence of cellulitis. Neuro: Awake and alert, GCS 15, oriented to person, place, time, and situation. Cranial nerves II-XII grossly intact. Motor strength 5/5 in all extremities. Sensory grossly intact. Cerebellar exam normal. Normal gait. 17:53 Head/face: Noted is a laceration(s), that is jagged, 5 cm(s), of the occipital area. 17:53 Musculoskeletal/extremity: Extremities: grossly normal except: noted in the right hip: pain, tenderness, ROM: intact in all extremities, full active range of motion, full passive range of motion, limited active range of motion due to pain, limited passive range of motion due to pain, Circulation is intact in all extremities. Sensation intact. Weight bearing: able to fully bear weight. Vital Signs: 15:54 BP 153 / 87; Pulse 93; Resp 18; Temp 98.8(O); Pulse Ox 99% on R/A; Weight 104.33 kg ed1 (R); Height 6 ft. 0 in. (182.88 cm) (R); Pain 6/10; 16:24 BP 132 / 80; Pulse 89; Resp 16; Pulse Ox 98% on R/A; mt 17:04 BP 136 / 81; Pulse 95; Resp 18; Pulse Ox 98% on R/A; Pain 6/10; ed1 18:04 BP 134 / 75; Pulse 89; Resp 16; Pulse Ox 98% on R/A; mt 18:15 BP 129 / 76; Pulse 83; Resp 17; Temp 97.9(O); Pulse Ox 100% on R/A; Pain 4/10; ed1 15:54 Body Mass Index 31.19 (104.33 kg, 182.88 cm) ed1 MDM: 15:50 Patient medically screened. [facility] 17:53 Data reviewed: vital signs, nurses notes, lab test result(s), EKG, radiologic studies, jr8 CT scan, plain films. Data interpreted: Pulse oximetry: on room air is 98 %. Interpretation: normal. Counseling: I had a detailed discussion with the patient and/or guardian regarding: the historical points, exam findings, and any diagnostic results supporting the discharge/admit diagnosis, lab results, radiology results, the need for outpatient follow up, a family practitioner, to return to the emergency department if symptoms worsen or persist or if there are any questions or concerns that arise at home. Response to treatment: the patient's symptoms have resolved after treatment. ED course: Patient continues to be stable. No chest pain, shortness of breath, numbness, tingling, dizziness, or near syncope feeling. Vitals have remained stable. ECG unremarkable. Labs and imaging without acute finding. Will send home with close return precautions . 11/24 16:01 Order name: Acetaminophen iw 11/24 16:01 Order name: Basic Metabolic Panel iw 11/24 16:01 Order name: CBC with Diff; Complete Time: 16:31 iw 11/24 16:01 Order name: ETOH Level; Complete Time: 16:51 iw 11/24 16:01 Order name: Hepatic Function; Complete Time: 16:51 iw 11/24 16:01 Order name: PT-INR; Complete Time: 16:51 iw 11/24 16:01 Order name: Ptt, Activated; Complete Time: 16:51 iw 11/24 16:01 Order name: Salicylate; Complete Time: 17:22 iw 11/24 16:01 Order name: Urine Drug Screen; Complete Time: 16:51 iw 11/24 16:02 Order name: Acetaminophen Level; Complete Time: 16:51 EDMS 11/24 16:02 Order name: Basic Metabolic Panel; Complete Time: 16:51 EDMS 11/24 16:12 Order name: Troponin (emerg Dept Use Only); Complete Time: 18:04 8 11/24 16:33 Order name: Urine Dipstick--Ancillary (enter results); Complete Time: 17:35 ag 11/24 16:01 Order name: EKG; Complete Time: 16:02 iw 11/24 16:01 Order name: EKG - Nurse/Tech; Complete Time: 16:17 iw 11/24 16:01 Order name: Labs collected and sent; Complete Time: 16:18 iw 11/24 16:01 Order name: Urine Dipstick-Ancillary (obtain specimen); Complete Time: 16:17 iw 11/24 16:12 Order name: Glucose Level; Complete Time: 16:17 jr8 11/24 16:16 Order name: CT Head C Spine; Complete Time: 17:10 jr8 11/24 16:16 Order name: XRAY Pelvis; Complete Time: 17:35 8 11/24 16:16 Order name: XRAY Hip RIGHT 2 view jr8 Administered Medications: No medications were administered Point of Care Testing: Blood Glucose: 16:17 Blood Glucose: 87 mg/dL; ed1 Ranges: Critical Glucose Levels:Adult <50 mg/dl or >400 mg/dl <40 mg/dl or >180 mg/dl Disposition: 11/25 07:22 Co-signature as Attending Physician, Tee Duncan MD I agree with the assessment and michi plan of care. Disposition: 11/24/18 18:03 Discharged to Home. Impression: Syncope and collapse, Laceration without foreign body of scalp. - Condition is Stable. - Discharge Instructions: Laceration Care, Adult, Syncope. - Medication Reconciliation Form, Thank You Letter, Antibiotic Education, Prescription Opioid Use form. - Follow up: Private Physician; When: 1 - 2 days; Reason: Recheck today's complaints, Continuance of care, Re-evaluation by your physician. - Problem is new. - Symptoms have improved. - Notes: [place] to be taken out in 7 days Signatures: Dispatcher [employer] EDAZ Tee Duncan MD MD cha Williams, Irene, RN RN Adelita Preston, GENETIC SCIENTIST GENETIC SCIENTIST ed1 Johnnie Wilkerson PA PA jr8 Corrections: (The following items were deleted from the chart) 11/24 17:10 17:03 Patient with seizure history . jr8 jr8 18:14 16:01 IV Saline Lock ordered. ed1 18:16 18:03 11/24/2018 18:03 Discharged to Home. Impression: Syncope and collapse; Laceration ed1 without foreign body of scalp. Condition is Stable. Forms are Medication Reconciliation Form, Thank You Letter, Antibiotic Education, Prescription Opioid Use. Follow up: Private Physician; When: 1 - 2 days; Reason: Recheck today's complaints, Continuance of care, Re-evaluation by your physician. Problem is new. Symptoms have improved. jr8
--- NOTE | 2018-11-25 06:26 | EKG ---
Test Date: 2018-11-24 Test Time: 16:13:21 Clinical Laboratory Technician: MARCIE MEASUREMENT RESULTS: Intervals: Rate: 86 VA: 130 QRSD: 90 QT: 348 QTc: 416 Anderson: P: 36 VA: 130 QRS: 88 T: -37 INTERPRETIVE STATEMENTS: Normal sinus rhythm Cannot rule out Inferior infarct, age undetermined Abnormal ECG Compared to ECG 01/19/2015 13:38:01 Myocardial infarct finding now present Electronically Signed On 11-25-18 06:18:55 PHOTOGRAPHIC SPECIALIST by Scott Luna
--- NOTE | 2018-11-25 09:11 | RAD REPORT ---
EXAM DESCRIPTION: RAD - Hip Right 2 View - 11/24/2018 5:03 pm CLINICAL HISTORY: TRAUMA Pain COMPARISON: None FINDINGS: AP pelvis and right hip, multiple views are submitted. Prominent osteoarthritis is present in both hips. No acute fracture is discerned.
== END 2018-11-24 18:16 | disposition home or self-care (01) ==
LOC: ER 15:46
DX: S01.01XA Laceration without foreign body of scalp, initial encounter (principal); R55 Syncope and collapse; M16.0 Bilateral primary osteoarthritis of hip; R94.31 Abnormal electrocardiogram [ECG] [EKG]; R56.9 Unspecified convulsions; Z79.899 Other long term (current) drug therapy
CPT/HCPCS: 36415; 70450; 72125; 72170; 80048; 80076; 80307; 80320; 80329; 81003; 82962; 84484; 85025; 85610; 85730; 93005; 99284

== ENCOUNTER 2021-04-28 21:35 | Observation (INO) | payer MEDICARE ==
[2021-04-28 22:53] LABS: Absolute Lymphocytes (CBC) 3.3 K/uL (0.7-4.9); Basophils % 1.1 % (0-1.3); Hematocrit 37.2 % (39.6-49.0); Lymphocytes % 45.2 % (15.3-44.8); MPV 7.7 fL (7.6-11.3); RBC Red Blood Cell Count 4.26 M/uL (4.33-5.43)
--- NOTE | 2021-04-28 22:55 | EDPHYS ---
Physician Documentation [facility] Name: Rajat Camacho Age: 50 yrs Sex: Male : 1970 Arrival Date: 04/28/2021 Time: 21:39 Bed 14 Private MD: John Subramanian ED Physician Tee Duncan HPI: 04/28 22:45 This 50 yrs old Male presents to ER via Ambulatory with complaints of Chest michi Pain. 22:45 The patient or guardian reports chest pain that is located primarily in the substernal michi area, anterior chest wall, left. Onset: 5 day(s) ago. The pain does not radiate. Associated signs and symptoms: Pertinent positives: lightheadedness, shortness of breath. The chest pain is described as a pressure, squeezing. Duration: The patient or guardian reports multiple episodes, that wax and wane, with no pattern. Modifying factors: The symptoms are alleviated by nothing. the symptoms are aggravated by nothing. Severity of pain: At its worst the pain was mild moderate in the emergency department the pain has improved. The patient has not experienced similar symptoms in the past. Historical: - Allergies: 21:59 PENICILLINS; bb - Home Meds: 21:59 carbetrol [Active]; Clonazepam Oral [Active]; Crestor Oral [Active]; Depakote Oral bb [Active]; Janumet Oral [Active]; phenobarbital Oral [Active]; Topamax Oral [Active]; - PMHx: 21:59 epilepsy; Seizures; Diabetes - NIDDM; bb - PSHx: 21:59 Appendectomy; back surgery to correct a pinched nerve; bb - Immunization history:: Adult Immunizations up to date, Client reports receiving the 2nd dose of the Covid vaccine. - Social history:: Smoking status: Patient denies any tobacco usage or history of. - Family history:: not pertinent. ROS: 22:45 Constitutional: Negative for fever, chills, and weight loss, Eyes: Negative for injury, michi pain, redness, and discharge, ENT: Negative for injury, pain, and discharge, Neck: Negative for injury, pain, and swelling, Respiratory: Negative for shortness of breath, cough, wheezing, and pleuritic chest pain, Abdomen/GI: Negative for abdominal pain, nausea, vomiting, diarrhea, and constipation, Back: Negative for injury and pain, : Negative for injury, bleeding, discharge, and swelling, MS/Extremity: Negative for injury and deformity, Skin: Negative for injury, rash, and discoloration, Neuro: Negative for headache, weakness, numbness, tingling, and seizure, Psych: Negative for depression, anxiety, suicide ideation, homicidal ideation, and hallucinations, Allergy/Immunology: Negative for hives, rash, and allergies, Endocrine: Negative for neck swelling, polydipsia, polyuria, polyphagia, and marked weight changes, Hematologic/Lymphatic: Negative for swollen nodes, abnormal bleeding, and unusual bruising. 22:45 Cardiovascular: Positive for chest pain. Exam: 22:45 Constitutional: This is a well developed, well nourished patient who is awake, alert, michi and in no acute distress. Head/Face: Normocephalic, atraumatic. Eyes: Pupils equal round and reactive to light, extra-ocular motions intact. Lids and lashes normal. Conjunctiva and sclera are non-icteric and not injected. Cornea within normal limits. Periorbital areas with no swelling, redness, or edema. ENT: Nares patent. No nasal discharge, no septal abnormalities noted. Tympanic membranes are normal and external auditory canals are clear. Oropharynx with no redness, swelling, or masses, exudates, or evidence of obstruction, uvula midline. Mucous membranes moist. Neck: Trachea midline, no thyromegaly or masses palpated, and no cervical lymphadenopathy. Supple, full range of motion without nuchal rigidity, or vertebral point tenderness. No Meningismus. Chest/axilla: Normal chest wall appearance and motion. Nontender with no deformity. No lesions are appreciated. Respiratory: Lungs have equal breath sounds bilaterally, clear to auscultation and percussion. No rales, rhonchi or wheezes noted. No increased work of breathing, no retractions or nasal flaring. Abdomen/GI: Soft, non-tender, with normal bowel sounds. No distension or tympany. No guarding or rebound. No evidence of tenderness throughout. Back: No spinal tenderness. No costovertebral tenderness. Full range of motion. Male : Normal genitalia with no discharge or lesions. Skin: Warm, dry with normal turgor. Normal color with no rashes, no lesions, and no evidence of cellulitis. 22:45 Cardiovascular: Rate: normal, Rhythm: regular, Pulses: Pulses are 4+ in bilateral radial, brachial, femoral, popliteal, posterior tibial and and dorsalis pedis arteries.. Heart sounds: normal, Edema: is not appreciated, JVD: is not appreciated. 22:45 ECG was reviewed by the Attending Physician. Vital Signs: 21:56 BP 143 / 83; Pulse 86; Resp 18 S; Temp 98.8(O); Pulse Ox 99% on R/A; Weight 108.86 kg bb (R); Height 6 ft. 2 in. (187.96 cm); Pain 9/10; 23:30 BP 142 / 88; Pulse 82; Resp 18; Pulse Ox 98% on R/A; jb4 04/29 00:30 BP 160 / 108; Pulse 79; Resp 16; Pulse Ox 99% on R/A; jb4 01:45 BP 166 / 113; Pulse 81; Resp 16; Pulse Ox 98% on R/A; jb4 04/28 21:56 Body Mass Index 30.81 (108.86 kg, 187.96 cm) bb MDM: 04/28 22:03 Patient medically screened. michi 22:51 Differential diagnosis: abnormal EKG, acute myocardial infarction, anxiety, coronary michi artery disease chest wall pain, congestive heart failure cholecystitis, Cholelithiasis costochondritis, herpes zoster, hiatal hernia, myocarditis, pancreatitis, pericarditis, pleurisy, pulmonary embolus, stable angina. HEART Score: History: Moderately Suspicious (1), ECG: Non specific repolarization disturbance / LBTB / PM (1), Age: > 45 and < 65 years (1), Risk Factors: > or = 3 Risk factors for atherosclerotic disease (2), [Hypercholesterolemia] [DM] [+ Family HX] Troponin: < or = 1 x Normal Limit (0), Total Score = 5. The patient was given aspirin in the Emergency Department. The patient's deep vein thrombosis risk score was calculated as follows: Total Score: 0. This patient was found to be at low risk for a deep vein thrombosis by using the Well's assessment criteria. The patient's pulmonary embolism risk score was calculated as follows: Total Score: 0-2 points. This patient was found to be at low risk for a pulmonary embolism by using the Well's assessment criteria. HUGO Risk Score: TOTAL SCORE = 0. Data reviewed: vital signs, nurses notes, lab test result(s), EKG, radiologic studies, plain films. Data interpreted: special education educational assistant: rate is 86 beats/min, rhythm is regular, Pulse oximetry: on room air is 86 %. Test interpretation: by ED physician or midlevel provider: ECG, plain radiologic studies. Counseling: I had a detailed discussion with the patient and/or guardian regarding: the historical points, exam findings, and any diagnostic results supporting the discharge/admit diagnosis, lab results, radiology results, the need for further work-up and treatment in the hospital. 04/28 22:06 Order name: Basic Metabolic Panel; Complete Time: 23:18 [facility] 04/28 22:06 Order name: CBC with Diff; Complete Time: 23:18 [facility] 04/28 22:06 Order name: LFT's; Complete Time: 23:18 [facility] 04/28 22:06 Order name: Magnesium; Complete Time: 23:18 [facility] 04/28 22:06 Order name: NT PRO-BNP; Complete Time: 23:18 [facility] 04/28 22:06 Order name: PT-INR; Complete Time: 23:18 [facility] 04/28 22:06 Order name: Troponin (emerg Dept Use Only); Complete Time: 23:18 [facility] 04/28 22:06 Order name: XRAY Chest (1 view) [facility] 04/28 22:06 Order name: Lipase; Complete Time: 23:18 [facility] 04/28 22:06 Order name: Phenobarbital; Complete Time: 23:18 [facility] 04/28 22:06 Order name: Depakote; Complete Time: 23:18 [facility] 04/28 23:55 Order name: CT Chest For PE Angio [facility] 04/29 00:12 Order name: SARS-COV-2 RT PCR [facility] 04/28 22:06 Order name: EKG; Complete Time: 22:07 [facility] 04/28 22:06 Order name: Cardiac monitoring; Complete Time: 22:37 [facility] 04/28 22:06 Order name: EKG - Nurse/Tech; Complete Time: 22:37 [facility] 04/28 22:06 Order name: IV Saline Lock; Complete Time: 22:37 [facility] 04/28 22:06 Order name: Labs collected and sent; Complete Time: 22:37 [facility] 04/28 22:06 Order name: O2 Per Protocol; Complete Time: 22:37 michi 04/28 22:06 Order name: O2 Sat Monitoring; Complete Time: 22:37 [facility] EC:45 Rate is 86 beats/min. Rhythm is regular. QRS [place] is Normal. MA interval is normal. QRS michi interval is normal. QT interval is normal. No Q waves. T waves are Normal. ST Segment is depressed in leads II, III, aVF, V4, V5, V6. Administered Medications: 23:16 Drug: Aspirin Chewable Tablet 324 mg Route: PO; 04/29 00:41 Follow up: Response: No adverse reaction [facility] 04/28 23:16 Drug: Lopressor (metoprolol TARTRATE) 50 mg Route: PO; [facility] 04/29 00:40 Follow up: Response: No adverse reaction [facility] 04/28 23:17 Drug: Zofran (Ondansetron) 4 mg Route: IVP; Site: right wrist; [facility] 04/29 00:41 Follow up: Response: No adverse reaction [facility] 04/28 23:19 Drug: morphine 2 mg Route: IVP; Site: right wrist; [facility] 23:20 Drug: Pepcid (famotidine) 20 mg Route: IVP; Site: right wrist; [facility] 04/29 00:41 Follow up: Response: No adverse reaction [facility] 04/28 23:20 Drug: Lovenox (enoxaparin) 1 mg/kg Route: Sub-Q; Site: left lower abdomen; [facility] 04/29 00:40 Follow up: Response: No adverse reaction [facility] 00:20 Drug: morphine 2 mg Route: IVP; Site: right forearm; 00:41 Follow up: Response: No adverse reaction; Pain is decreased 00:22 Drug: Magnesium Sulfate 1 grams Route: IVPB; Infused Over: 1 hrs; Site: right forearm; 01:22 Follow up: Response: No adverse reaction; IV Status: Completed infusion 4 01:55 CANCELLED (Duplicate Order): morphine 2 mg IVP once; RASS on ADMIN: Combtv4, Very jb4 Agttd3, Agttd2, Rstlss1, AlertClm0, Drwsy-1, Lt Sdtn-2, Mod Sdtn-3, Dp Sdtn-4, UnArsble-5 01:55 Drug: morphine 2 mg Route: IVP; Site: right wrist; jb4 02:19 Follow up: Response: No adverse reaction; Marked relief of symptoms; Pain is decreased; jb4 RASS: Alert and Calm (0) Disposition: 04/28/21 22:54 Hospitalization ordered by Mik Zambrano for Observation. Preliminary diagnosis are Chest pain, unspecified, Angina pectoris, Type 2 diabetes mellitus, Hypokalemia. - Bed requested for Telemetry/MedSurg (observation). - Status is Observation. jb4 - Condition is Stable. - Problem is new. - Symptoms have improved. Signatures: Dispatcher [employer] EDMS Tee Duncan MD MD cha Ballard, Brenda, RN RN bb Kaushik Handley, PRODUCT TECHNICIAN-C PRODUCT TECHNICIAN-Cla1 Amy Koehler RN RN cg Bryson, James, RN RN jb4 Susie Rousseau RN RN Corrections: (The following items were deleted from the chart) 04/28 23:04 22:07 CORONAVIRUS+MR.LAB.BRZ ordered. [facility] 23:55 22:54 Hospitalization Ordered by Mik Zambrano MD for Observation. Preliminary [facility] diagnosis is Chest pain, unspecified; Angina pectoris; Type 2 diabetes mellitus. Bed requested for Telemetry/MedSurg (observation). Status is Observation. Condition is Stable. Problem is new. Symptoms have improved. [facility] 04/29 00:48 04/28 23:55 04/28/2021 22:54 Hospitalization Ordered by Mik Zambrano MD for cg Observation. Preliminary diagnosis is Chest pain, unspecified; Angina pectoris; Type 2 diabetes mellitus; Hypokalemia. Bed requested for Telemetry/MedSurg (observation). Status is Observation. Condition is Stable. Problem is new. Symptoms have improved. [facility] 04/29 00:55 00:48 04/28/2021 22:54 Hospitalization Ordered by Mik Zambrano MD for Observation. Preliminary diagnosis is Chest pain, unspecified; Angina pectoris; Type 2 diabetes mellitus; Hypokalemia. Bed requested for Telemetry/MedSurg (observation). Status is Observation. Condition is Stable. Problem is new. Symptoms have improved. 01:55 01:54 morphine 2 mg IVP once; RASS on ADMIN: Combtv4, Very Agttd3, Agttd2, Rstlss1, jb4 AlertClm0, Drwsy-1, Lt Sdtn-2, Mod Sdtn-3, Dp Sdtn-4, UnArsble-5 ordered. jb4 02:19 00:55 04/28/2021 22:54 Hospitalization Ordered by Mik Zambrano MD for Observation. jb4 Preliminary diagnosis is Chest pain, unspecified; Angina pectoris; Type 2 diabetes mellitus; Hypokalemia. Bed requested for Telemetry/MedSurg (observation). Status is Observation. Condition is Stable. Problem is new. Symptoms have improved. cg
--- NOTE | 2021-04-28 22:55 | ER ---
Nurse's Notes [facility] Name: Rajat Camacho Age: 50 yrs Sex: Male : 1970 Arrival Date: 04/28/2021 Time: 21:39 Bed 14 Private MD: John Subramanian Diagnosis: Chest pain, unspecified;Angina pectoris;Type 2 diabetes mellitus;Hypokalemia Presentation: 04/28 21:56 Chief complaint: Patient states: has been having chest pain x 1 week intermittently but bb now the pain is worse. Coronavirus screen: At this time, the client does not indicate any symptoms associated with coronavirus-19. Ebola Screen: No symptoms or risks identified at this time. Initial Sepsis Screen: Does the patient meet any 2 criteria? No. Patient's initial sepsis screen is negative. Does the patient have a suspected source of infection? No. Patient's initial sepsis screen is negative. Risk Assessment: Do you want to hurt yourself or someone else? Patient reports no desire to harm self or others. Onset of symptoms was April 2021. 21:56 Method Of Arrival: Ambulatory bb 21:56 Acuity: CARLIN 3 bb Historical: - Allergies: 21:59 PENICILLINS; bb - Home Meds: 21:59 carbetrol [Active]; Clonazepam Oral [Active]; Crestor Oral [Active]; Depakote Oral bb [Active]; Janumet Oral [Active]; phenobarbital Oral [Active]; Topamax Oral [Active]; - PMHx: 21:59 epilepsy; Seizures; Diabetes - NIDDM; bb - PSHx: 21:59 Appendectomy; back surgery to correct a pinched nerve; bb - Immunization history:: Adult Immunizations up to date, Client reports receiving the 2nd dose of the Covid vaccine. - Social history:: Smoking status: Patient denies any tobacco usage or history of. - Family history:: not pertinent. Screenin:15 Abuse screen: Denies threats or abuse. Nutritional screening: No deficits noted. jb4 Tuberculosis screening: No symptoms or risk factors identified. Fall Risk None identified. Assessment: 22:15 General: Appears in no apparent distress. uncomfortable, Behavior is calm, cooperative. jb4 Pain: Complains of pain in chest Pain does not radiate. Pain currently is 9 out of 10 on a pain scale. Quality of pain is described as pressure. Neuro: Level of Consciousness is awake, alert, obeys commands, Oriented to person, place, time, situation. Cardiovascular: Patient's skin is warm and dry. Respiratory: Airway is patent Respiratory effort is even, unlabored, Respiratory pattern is regular, symmetrical. GI: No signs and/or symptoms were reported involving the gastrointestinal system. : No signs and/or symptoms were reported regarding the genitourinary system. EENT: No signs and/or symptoms were reported regarding the EENT system. Derm: Skin is intact, Skin is pink, warm \T\ dry. Musculoskeletal: Circulation, motion, and sensation intact. Range of motion: intact in all extremities. 23:00 Reassessment: Patient appears in no apparent distress at this time. Patient and/or jb4 family updated on plan of care and expected duration. Pain level reassessed. Patient is alert, oriented x 3, equal unlabored respirations, skin warm/dry/pink. 04/29 00:00 Reassessment: Patient appears in no apparent distress at this time. Patient and/or jb4 family updated on plan of care and expected duration. Pain level reassessed. Patient is alert, oriented x 3, equal unlabored respirations, skin warm/dry/pink. 01:00 Reassessment: Patient appears in no apparent distress at this time. Patient and/or jb4 family updated on plan of care and expected duration. Pain level reassessed. Patient is alert, oriented x 3, equal unlabored respirations, skin warm/dry/pink. 01:45 Reassessment: Pt reports return of chest pain, hospitalist notified, see mar for orders.jb4 02:00 Reassessment: Patient appears in no apparent distress at this time. Patient and/or jb4 family updated on plan of care and expected duration. Pain level reassessed. Patient is alert/active/playful, equal unlabored respirations, skin warm/dry/pink. Vital Signs: 04/28 21:56 BP 143 / 83; Pulse 86; Resp 18 S; Temp 98.8(O); Pulse Ox 99% on R/A; Weight 108.86 kg bb (R); Height 6 ft. 2 in. (187.96 cm); Pain /10; 23:30 BP 142 / 88; Pulse 82; Resp 18; Pulse Ox 98% on R/A; jb4 04/29 00:30 BP 160 / 108; Pulse 79; Resp 16; Pulse Ox 99% on R/A; jb4 01:45 BP 166 / 113; Pulse 81; Resp 16; Pulse Ox 98% on R/A; jb4 04/28 21:56 Body Mass Index 30.81 (108.86 kg, 187.96 cm) bb ED Course: 04/28 21:39 Patient arrived in ED. es 21:39 John Subramanian DO is Private Physician. es 21:57 Triage completed. bb 21:59 Arm band placed on Patient placed in an exam room, on a stretcher, on air sampling and monitoring, bb on pulse oximetry. EKG completed in triage. Results shown to MD. 22:03 Tee Duncan MD is Attending Physician. michi 22:15 Patient has correct armband on for positive identification. Bed in low position. Call jb4 light in reach. Side rails up X 1. quality assurance monitor body on. Pulse ox on. NIBP on. 22:15 Patient maintains SpO2 saturation greater than 95% on room air. jb4 22:46 XRAY Chest (1 view) In Process Unspecified. EDMS 22:53 Mik Zambrano MD is Hospitalizing Provider. [facility] 22:56 Ryan Siegel RN is Primary Nurse. [facility] 04/29 02:18 No provider procedures requiring assistance completed. Patient admitted, IV remains in jb4 place. Administered Medications: 04/28 23:16 Drug: Aspirin Chewable Tablet 324 mg Route: PO; [facility] 04/29 00:41 Follow up: Response: No adverse reaction [facility] 04/28 23:16 Drug: Lopressor (metoprolol TARTRATE) 50 mg Route: PO; 4 04/29 00:40 Follow up: Response: No adverse reaction [facility] 04/28 23:17 Drug: Zofran (Ondansetron) 4 mg Route: IVP; Site: right wrist; [facility] 04/29 00:41 Follow up: Response: No adverse reaction [facility] 04/28 23:19 Drug: morphine 2 mg Route: IVP; Site: right wrist; [facility] 23:20 Drug: Pepcid (famotidine) 20 mg Route: IVP; Site: right wrist; [facility] 04/29 00:41 Follow up: Response: No adverse reaction [facility] 04/28 23:20 Drug: Lovenox (enoxaparin) 1 mg/kg Route: Sub-Q; Site: left lower abdomen; jb4 04/29 00:40 Follow up: Response: No adverse reaction jb4 00:20 Drug: morphine 2 mg Route: IVP; Site: right forearm; 00:41 Follow up: Response: No adverse reaction; Pain is decreased jb 00:22 Drug: Magnesium Sulfate 1 grams Route: IVPB; Infused Over: 1 hrs; Site: right forearm; 01:22 Follow up: Response: No adverse reaction; IV Status: Completed infusion 4 01:55 CANCELLED (Duplicate Order): morphine 2 mg IVP once; RASS on ADMIN: Combtv4, Very jb4 Agttd3, Agttd2, Rstlss1, AlertClm0, Drwsy-1, Lt Sdtn-2, Mod Sdtn-3, Dp Sdtn-4, UnArsble-5 01:55 Drug: morphine 2 mg Route: IVP; Site: right wrist; 4 02:19 Follow up: Response: No adverse reaction; Marked relief of symptoms; Pain is decreased; jb4 RASS: Alert and Calm (0) Outcome: 04/28 22:54 Decision to Hospitalize by Provider. [facility] 04/29 02:18 Admitted to Med/surg accompanied by nurse, via wheelchair, room 223, with chart. jb4 Condition: stable Discharge instructions given to patient, Instructed on the need for admit, Demonstrated understanding of instructions. 02:19 Patient left the ED. jb4 Signatures: Dispatcher [employer] Tee Bauer MD MD cha Salyer, Edna es Ballard, Brenda, RN RN Ryan Dunn RN RN jb4 Susie Rousseau RN RN
[2021-04-28 22:56] LABS: Protime INR 0.99
[2021-04-28 23:10] LABS: ALT/SGPT 21 U/L (12-78); AST/SGOT 21 U/L (15-37); Albumin 3.3 g/dL (3.4-5.0); Alkaline Phosphatase 84 U/L (45-117); BUN Blood Urea Nitrogen 12 mg/dL (7-18); Bicarbonate 22 mmol/L (21-32); Bilirubin Direct < 0.1 mg/dL (0-0.2); Bilirubin Total 0.2 mg/dL (0.2-1.0); Glucose Level 108 mg/dL (74-106); Lipase 190 U/L (73-393); Magnesium 1.7 mg/dL (1.8-2.4); NT PRO-BNP 86 pg/mL (<125); Potassium 3.6 mmol/L (3.5-5.1); Protein, Total 7.2 g/dL (6.4-8.2); Sodium Level 143 mmol/L (136-145); Troponin (Emerg Dept Use Only) < 0.02 ng/mL (0.0-0.045)
[2021-04-28] MEDS ORDERED: ASPIRIN 81 MG CHEWABLE TABLET ONE (23:22)
[2021-04-28] MEDS ORDERED: METOPROLOL TAR 50 MG TAB ONE (23:22)
[2021-04-28] MEDS ORDERED: FAMOTIDINE 20 MG/2 ML VIAL IV ONE (23:23)
[2021-04-28] MEDS ORDERED: MORPHINE 2 MG/ML SYR ONE (23:23)
[2021-04-28] MEDS ORDERED: ONDANSETRON 4 MG/2 ML VIAL ONE (23:23)
[2021-04-28] MEDS ORDERED: ENOXAPARIN 100 MG/ML SYR SQ ONE (23:23)
[2021-04-29] MEDS ORDERED: MORPHINE 2 MG/ML SYR ONE ×2 (00:36→02:10)
[2021-04-29] MEDS ORDERED: MAGNESIUM SULFATE 1 gm IVPB 1 GM/100 ML BAG IV ONE (00:36)
--- NOTE | 2021-04-29 01:06 | P.HP ---
Certification for Inpatient Patient admitted to: Observation Patient will require the following post-hospital care: None Practitioner: I am a practitioner with admitting privileges, knowledge of patient current condition, hospital course, and medical plan of care. Services: Services provided to patient in accordance with Admission requirements found in Title 42 Section 412.3 of the Code of Federal Regulations Patient History Date of Service: 04/28/21 Primary Care Provider: dr. Subramanian Reason for admission: Chest pain History of Present Illness: 50-year-old male with history of epilepsy, diabetes mellitus type 2 presents emergency department for chest pain. Patient reports on going chest pain over the course of the last 2 weeks. Pain described as sharp/pressure- like, related to inspiration or coughing, sounds pleuritic in nature although patient is very uncomfortable. Patient evaluated in the emergency department, labs unremarkable, chest x-ray unremarkable, CT PE protocol pending. EKG without acute changes. ED provider wishes to admit under observation for ACS without. Allergies No Known Drug Allergies Allergy (Unverified 02/16/15 19:25) Unknown No Known Pablo Allergy (Uncoded 06/22/17 20:25) Unknown - Past Medical/Surgical History -: Epilepsy -: Diabetes mellitus type 2 -: Appendectomy -: Back surgery Psychosocial/ Personal History: Unemployed, lives with his and children - Family History Mother -: Heart disease - Social History Smoking Status: Never smoker Alcohol use: No CD- Drugs: No Caffeine use: Yes Place of Residence: Home Review of Systems 10-point ROS is otherwise unremarkable Respiratory: Pleuritic Pain Cardiovascular: Chest Pain Physical Examination - Physical Exam General: Alert, In no apparent distress, Oriented x3 HEENT: Atraumatic, PERRLA Neck: Supple, 2+ carotid pulse no bruit, No LAD Respiratory: Clear to auscultation bilaterally, Normal air movement Cardiovascular: Regular rate/rhythm, Normal S1 S2 Gastrointestinal: Normal bowel sounds, No tenderness Musculoskeletal: No tenderness Integumentary: No rashes Neurological: Normal speech, Normal strength at 5/5 x4 extr, Normal tone, Normal affect - Studies Laboratory Data (last 24 hrs) 04/28/21 22:30: PT 11.4, INR 0.99 04/28/21 22:30: WBC 7.40, Hgb 12.6 L, Hct 37.2 L, Plt Count 172 04/28/21 22:30: Sodium 143, Potassium 3.6, BUN 12, Creatinine 0.80, Glucose 108 H, Magnesium 1.7 L, Total Bilirubin 0.2, AST 21, ALT 21, Alkaline Phosphatase 84, Lipase 190 Assessment and Plan - Plan Assessment Chest pain rule out ACS Diabetes mellitus type 2 Epilepsy Plan Chest pain rule out ACS: Monitor on telemetry, trend troponins, cardiology consulted. Continue with aspirin, beta-eliseo, statin therapy. Pain is pleuritic in nature, CT PE protocol pending. DVT prophylaxis Lovenox 40 mg subcutaneous once daily. Patient given 1 dose of full dose Lovenox in the emergency department. Diabetes mellitus type 2: A.c. HS Accu-Cheks, sliding scale insulin therapy. Epilepsy: Continue medications , seizure precautions. Discharge Plan: Home Plan to discharge in: 24 Hours - Advance Directives Does patient have a Living Will: No Does patient have a Durable POA for Healthcare: No - Code Status/Comfort Care Code Status Assessed: Yes (Full code) Critical Care: No Time Spent Managing Pts Care (In Minutes): 55
[2021-04-29] MEDS ORDERED: ONDANSETRON 4 MG/2 ML VIAL IV PRN (02:17)
[2021-04-29] MEDS ORDERED: ACETAMINOPHEN 500 MG TAB PO PRN (02:17)
[2021-04-29 02:30] VITALS: O2SAT 98
[2021-04-29] MEDS ORDERED: FENTANYL CITR 100 MCG/2 ML IV ONE (03:45)
[2021-04-29 04:17] LABS: Absolute Lymphocytes (CBC) 3.3 K/uL (0.7-4.9); Basophils % 0.8 % (0-1.3); Hematocrit 36.9 % (39.6-49.0); Lymphocytes % 47.3 % (15.3-44.8); RBC Red Blood Cell Count 4.19 M/uL (4.33-5.43)
[2021-04-29 04:18] VITALS: BMI 30.8
[2021-04-29 04:36] LABS: ALT/SGPT 21 U/L (12-78); AST/SGOT 19 U/L (15-37); Albumin 3.2 g/dL (3.4-5.0); Alkaline Phosphatase 83 U/L (45-117); BUN Blood Urea Nitrogen 12 mg/dL (7-18); Bicarbonate 26 mmol/L (21-32); Bilirubin Total 0.2 mg/dL (0.2-1.0); Glucose Level 88 mg/dL (74-106); HDL Cholesterol 39 mg/dL (40-60); LDL Cholesterol, Calculated 30 (<130); Potassium 4.1 mmol/L (3.5-5.1); Sodium Level 145 mmol/L (136-145); Troponin I < 0.02 ng/mL (0.0-0.045)
[2021-04-29] MEDS: clonazePAM 1 MG TAB PO SCH ×2 (05:30→13:30)
[2021-04-29] MEDS ORDERED: CARBAMAZEPINE 300 MG PO SCH ×2 (05:30→13:30)
[2021-04-29] MEDS ORDERED: carBAMazepine 200 MG TAB PO ONE (05:30)
[2021-04-29] MEDS: DIVALPROEX ER 250 MG TAB PO SCH ×2 (05:30→13:30)
[2021-04-29] MEDS ORDERED: TOPIRAMATE 100 MG TAB PO SCH ×2 (05:30→09:00)
[2021-04-29] MEDS ORDERED: METOPROLOL TAR 25 MG TAB PO SCH (06:00)
[2021-04-29] MEDS: METFORMIN HCL 500 MG TAB PO SCH ×2 (08:00→16:16)
[2021-04-29] MEDS: SITAGLIPTIN PHOS 100 MG TAB PO SCH ×2 (08:00→16:16)
[2021-04-29] MEDS ORDERED: HOME MED 1 EA UNK (Sitagliptin Phos/Metformin Hcl [Janumet 50-1,000 Mg Tablet] Tablet) PO SCH (09:00)
[2021-04-29] MEDS ORDERED: ENOXAPARIN 40 MG/0.4 ML SQ SCH (09:00)
[2021-04-29] MEDS ORDERED: ASPIRIN EC 81 MG TAB PO SCH (09:00)
[2021-04-29] MEDS ORDERED: clonazePAM 1 MG TAB PO SCH (09:00)
--- NOTE | 2021-04-29 09:08 | RAD REPORT ---
EXAM DESCRIPTION: Jaquelin Single View04/28/2021 10:46 pm CLINICAL HISTORY: Chest pain COMPARISON: 2016 FINDINGS: The lungs appear clear of acute infiltrate. The heart is normal size IMPRESSION: No acute abnormalities displayed
--- NOTE | 2021-04-29 12:10 | RAD REPORT ---
EXAM DESCRIPTION: CT - Chest For Pe Angio - 04/29/2021 4:23 am CLINICAL HISTORY: 50 years, Male, CHEST PAIN COMPARISON: None. TECHNIQUE: Multiple transaxial tomograms of the chest were obtained from the lung apices through the lung bases utilizing 2 mm slice thickness at 2 mm interval reconstruction after the administration o f large bolus of IV contrast for complete opacification of the pulmonary arteries. Subsequent maximum intensity projection images were generated in the coronal and sagittal plane for r eview. This exam was performed according to our departmental dose-optimization protocol, which includes auto mated exposure control, adjustment of the mA and/or kV according to patient size and/or use of iterat chrissy reconstruction technique. FINDINGS: Some of the images are compared mild by motion artifact limiting diagnostic value. The lungs parenchyma demonstrate minimal dependent atelectatic changes. No masses, nodules and/or con solidations are identified. Calcified renal mass noted within the right lung base on image 65/103 T he trachea mainstem bronchus demonstrate to be normal. There is no significant pericardial or pleural effusions. The thoracic aorta demonstrate to be within normal limits. There is no evidence for thoracic aortic d issection is/or aneurysm. The heart is normal in size. No evidence for right ventricular strain. Ther e are no significant coronary artery calcifications. Minimal calcified right hilum lymph nodes on image 51/103. There is no significant mediastinal and/or hilar lymphadenopathy. The axillary regions demonstrate to be clear. Pulmonary arteries demonstrate to be normal, no intraluminal defect are seen that would suggest pulmo nary embolus. The bone windows demonstrate no significant skeletal lesions. The visualized portions of the dome of the liver and spleen demonstrate to be within normal limits. IMPRESSION: No evidence for pulmonary embolism and/or thoracic aortic dissection. Old granulomatous disease. Electronically signed by: Saurabh Noland MD 04/29/2021 1:11 AM CDT Due to temporary technical issues with the PACS/Fluency reporting system, reports are being signed by the in house radiologist without review as a courtesy to ensure prompt reporting. The interpreting r adiologist is fully responsible for the content of the report.
[2021-04-29] MEDS ORDERED: IBUPROFEN 600 MG TAB PO PRN (13:17)
[2021-04-29] MEDS ORDERED: PHENOBARBITAL 32.4 MG TABLET PO SCH (13:30)
--- NOTE | 2021-04-29 15:37 | P.DS ---
Admission Date: 04/28/21 Discharge Date: 04/29/21 Primary Care Provider: dr. Subramanian Disposition: ROUTINE DISCHARGE Discharge Condition: GOOD Reason for Admission: Chest pain Consultations: Cardiology - Dr. Rubalcava Procedures: CXR (04/28): No acute abnormalities displayed CTA Chest (04/28): IMPRESSION: No evidence for pulmonary embolism and/or t horacic aortic dissection. Old granulomatous disease. FINDINGS: Some of the images are compared mild by motion artifact limiting diagnostic value. The lungs parenchyma demonstrate minimal dependent atelectatic changes. No masses, nodules and/or consolidations are identified. Calcified renal mass noted within the right lung base on image 65/103 The trachea mainstem bronchus demonstrate to be normal. There is no significant pericardial or pleural effusions. The thoracic aorta demonstrate to be within normal limits. There is no evidence for thoracic aortic dissection is/or aneurysm. The heart is normal in size. No evidence for right ventricular strain. There are no significant coronary artery calcifications. Minimal calcified right hilum lymph nodes on image 51/103. There is no significant mediastinal and/or hilar lymphadenopathy. The axillary regions demonstrate to be clear. Pulmonary arteries demonstrate to be normal, no intraluminal defect are seen that would suggest pulmonary embolus. The bone windows demonstrate no significant skeletal lesions. The visualized portions of the dome of the liver and spleen demonstrate to be within normal limits. Assessment Chest pain rule out ACS Diabetes mellitus type 2 Epilepsy Brief History of Present Illness: 50-year-old male with history of epilepsy, diabetes mellitus type 2 presents emergency department for chest pain. Patient reports on going chest pain over the course of the last 2 weeks. Pain described as sharp/pressure- like, related to inspiration or coughing, sounds pleuritic in nature although patient is very uncomfortable. Patient evaluated in the emergency department, labs unremarkable, chest x-ray unremarkable, CT PE protocol pending. EKG without acute changes. ED provider wishes to admit under observation for ACS without. Hospital Course: Troponin remained negative, EKG without significant acute ischemic changes. Cardiology was consulted and recommended stress test, can be done as outpatient. Patient was discharged home. Advised to take 600mg BID Ibuprofen for possible costochondritis. Patient at tenderness to palpation / recreation of his pain with palpation. CXR and CTA Chest were also negative for acute process. He is to f/u with Dr. Rubalcava's office in the next week to have stress test done. Vital Signs/Physical Exam: Temp Pulse Resp BP Pulse Ox 98.0 F 75 16 104/68 97 04/29/21 12:00 04/29/21 12:00 04/29/21 12:00 04/29/21 12:00 04/29/21 12:00 General: Alert, In no apparent distress HEENT: Sclerae nonicteric Neck: Supple, No LAD Respiratory: Clear to auscultation bilaterally, Normal air movement Cardiovascular: No edema, Regular rate/rhythm, Normal S1 S2 Gastrointestinal: Soft and benign, Non-distended, No tenderness Musculoskeletal: No erythema, Tenderness (left chest, at location of chest pain) Integumentary: No rashes Neurological: Normal speech, Normal strength at 5/5 x4 extr, Normal affect Laboratory Data at Discharge: WBC 7.00 K/uL (4.3-10.9) 04/29/21 03:32 Hgb 12.2 g/dL (13.6-17.9) L 04/29/21 03:32 Hct 36.9 % (39.6-49.0) L 04/29/21 03:32 Plt Count 165 K/uL (152-406) 04/29/21 03:32 PT 11.4 SECONDS (9.5-12.5) 04/28/21 22:30 INR 0.99 04/28/21 22:30 Sodium 145 mmol/L (136-145) 04/29/21 03:32 Potassium 4.1 mmol/L (3.5-5.1) 04/29/21 03:32 BUN 12 mg/dL (7-18) 04/29/21 03:32 Creatinine 0.71 mg/dL (0.55-1.3) 04/29/21 03:32 Glucose 88 mg/dL (74-106) 04/29/21 03:32 Magnesium 2.0 mg/dL (1.8-2.4) 04/29/21 03:32 Total Bilirubin 0.2 mg/dL (0.2-1.0) 04/29/21 03:32 AST 19 U/L (15-37) 04/29/21 03:32 ALT 21 U/L (12-78) 04/29/21 03:32 Alkaline Phosphatase 83 U/L (45-117) 04/29/21 03:32 Troponin I < 0.02 ng/mL (0.0-0.045) 04/29/21 09:59 Triglycerides 352 mg/dL (<150) H 04/29/21 03:32 Cholesterol 139 mg/dL (<200) 04/29/21 03:32 HDL Cholesterol 39 mg/dL (40-60) L 04/29/21 03:32 Cholesterol/HDL Ratio 3.56 04/29/21 03:32 Lipase 190 U/L (73-393) 04/28/21 22:30 Home Medications: Aspirin [Aspirin EC 81 MG] 81 mg PO DAILY 30 Days #30 tablet. 04/29/21 Divalproex Sodium [Depakote ER] 1,000 mg PO BID 04/29/21 Divalproex Sodium [Depakote ER] 1,200 mg PO BEDTIME 04/29/21 PHENobarbitaL [Phenobarbital*] 64.8 mg PO DAILY 04/29/21 Rosuvastatin Calcium 10 mg PO BEDTIME 04/29/21 Sitagliptin Phos/Metformin HCl [Janumet 50-1,000 mg Tablet] 1 tab PO BID 04/29/21 Topiramate [Topamax] 200 mg PO BID 04/29/21 carBAMazepine [Carbatrol] 300 mg PO BID 04/29/21 carBAMazepine [Carbatrol] 600 mg PO DAILY 04/29/21 clonazePAM [Clonazepam] 1 mg PO TID 04/29/21 New Medications: Aspirin [Aspirin EC 81 MG] 81 mg PO DAILY 30 Days #30 tablet. Physician Discharge Instructions: Your chest pain was evaluated by cardiac enzyme (Troponin), EKG, CT scan of your chest, and chest x-ray. These were all normal, and did not show any signs of heart damage or other cause of your pain. You did have pain with palpation of your chest, making it more likely this is due to some muscle pain or rib inflammation. Recommend 1 week of ibuprofen 600mg twice a day. Follow up with Dr. Rubalcava - call his office this coming Sunday to set up an appointment. They will schedule you for a stress test to be done in the office. Diet: ADA Activity: Ad anaya Followup: NONE,NONE [Primary Care Provider] - Miller Rubalcava MD [ACTIVE - CAN ADMIT] - Time spent managing pt's care (in minutes): 45
[2021-04-29 17:16] VITALS: BP 112/68; TEMP 97.8
[2021-04-29] MEDS ORDERED: ROSUVASTATIN 10 MG TAB PO SCH (21:00)
[2021-04-29] MEDS ORDERED: DIVALPROEX ER 250 MG TAB PO SCH ×2 (21:00→21:30)
[2021-04-29] MEDS ORDERED: DIVALPROEX DR 500MG TAB PO SCH (21:00)
--- NOTE | 2021-05-01 19:46 | CON ---
Date of Consultation: 04/29/2021 Reason For Consultation: Chest pain. History Of Present Illness: This is a 50-year-old male with history of diabetes, epilepsy, presents to the emergency room with chest pain for the past 2 weeks. The pain is left-sided, related to deep inspiration. No exertional chest pain. No significant shortness of breath. Since admission, there was no further chest pain reported. Past Medical History: Significant for epilepsy, diabetes. Medications: Refer to reconciliation sheet for detailed list. Allergies: NO KNOWN DRUG ALLERGIES. Family History: No premature coronary artery disease. Social History: Does not smoke or drink. Does not use any drugs. Review of Systems: All systems reviewed and they are negative except for what is mentioned in the HPI. Physical Examination: Vital Signs: Reviewed. Head and Neck: Pupils are equal and reactive to light. Intact eye movements. No JVD. No cervical lymphadenopathy. Neck supple. Thyroid is not enlarged. Lungs: Clear to auscultation bilaterally. No rhonchi, rales, or crackles. No accessory muscle use. Heart: Regular rate and rhythm. No extra sounds. Abdomen: Soft, nontender. Bowel sounds positive. No organomegaly. No masses or hernia. No rigidi ty or rebound. Extremities: No edema, clubbing, or cyanosis. Intact pulses. Skin: No rashes. Neurologic: Alert, awake, oriented x3. No acute focal deficits appreciated. Investigations: Two sets of cardiac enzymes are negative. Creatinine 0.7. Hemoglobin 12.6. EKG wi thout acute specific abnormality. Assessment And Recommendation: Chest pain. Negative enzymes. The patient has been chest pain free. The pain is pleuritic in nature. The CT scan showed no PE. The patient can be released from the ardiac standpoint and follow up as an outpatient for cardiac stress test and echocardiogram. Thank you for the consult. /VINEET Voice ID: [id number] Report ID: [id number]
== END 2021-04-29 17:58 | disposition home or self-care (01) ==
LOC: ER 21:35 → ERHOLD 04-29 00:14 → 2ND 04-29 01:32
PROVIDERS: ADMIT Hospitalist; ATTEND Hospitalist
DX: R07.9 Chest pain, unspecified (principal); E11.9 Type 2 diabetes mellitus without complications; G40.909 Epilepsy, unspecified, not intractable, without status epilepticus; E87.6 Hypokalemia; Z20.822 Contact with and (suspected) exposure to COVID-19; Z88.0 Allergy status to penicillin; Z82.49 Family history of ischemic heart disease and other diseases of the circulatory system
CPT/HCPCS: 85025 ×2; 80048; 36415; 83735 ×2; 85610; 80061; 82947 ×4; 80076; 80164; 80184; 84443; 84484 ×3; 84439; 83690; 80053; 83880; 71275; 71045; 96372; 99285; U0003; Q9967; J1650 ×2; J3010; J3475; J2270 ×3; J2405; G0378 ×2

== ENCOUNTER 2023-06-30 02:16 | Emergency (ER) | payer MEDICARE ==
--- OUTSIDE RECORDS SUMMARY | 2023-06-30 02:29 | XMS REPORT | Continuity of Care Document ---
:1970 Author Organization [facility] Address [address] [facility] [place] [address] Care Team Providers Name Role Phone Pcp, Patient Does Not Have A Primary Care Physician [phone] JOHNY NEVILLE Attending Clinician Unavailable JOHNY NEVILLE Attending Clinician Unavailable Nancy Harvey Attending Clinician Johny Neville MD Attending Clinician _[facility]_Zejose lner_K Attending Clinician Unavailable Brianda Hernandez RN Attending Clinician Unavailable Ryan Boone MD Attending Clinician Clifford Vasquez MD Attending Clinician Ira Lopez MD Attending Clinician [phone] IRA LOPEZ Attending Clinician Unavailable Eunice Greenwood NP Attending Clinician Amena Murphy MD Attending Clinician Tyrone Kee MD, Selvin Attending Clinician AMENA MURPHY Attending Clinician Unavailable Paul Ferrell MD Attending Clinician Maren OWENS Attending Clinician Unavailable Maren Lawson Attending Clinician Lab, Ang - Db Attending Clinician Unavailable Doctor Unassigned, [place] Attending Clinician Unavailable [place] Attending Clinician Unavailable Nilsa Valerio Attending Clinician Reina Attending Clinician Unavailable Amada Salinas Attending Clinician _[facility]_Nicole_Maren Admitting Clinician Unavailable Ira Lopez MD Admitting Clinician [phone] SELVIN HANSEN Admitting Clinician Unavailable Tyrone Kee MD, Selvin Admitting Clinician Maren OWENS Admitting Clinician Unavailable [place] Admitting Clinician Unavailable Reina Admitting Clinician Unavailable Payers Payer Name Policy Type Policy Number Effective Date Expiration Date [facility] [id number] [facility] 00:00:00 00:00:00 [facility] - [id number] [facility] (MEDICARE REPLACEMENT/ADVANTA GE - PPO) [facility] [id number] 2022 (MEDICARE 00:00:00 REPLACEMENT HMO) Problems Condition Condition Condition Status Onset Resolution Last Treating Co mments Source Name Details Category Date Date Treatment Clinician Date Obesity Obesity Disease Active Univers (BMI (BMI 6-08 ity of 30-39.9) 30-39.9) 00:00: [place] [address] [place] [address] Branch Altered Altered Disease Active Univers mental mental 6-08 ity of status, status, 00:00: [place] unspecifie unspecifie 00 Me dical d altered d altered Bran ch mental mental status status type type BACK PAIN BACK PAIN Diagnosis Active 2016-112017-12-30 Memoria Active 2 19:21:00 l 10/21/2017 08:56: Noah lucas [address] No known No known Disease Unive rs active active ity of problems problems [facility] Diabetes Diabetes Problem Resolve 2017-10-24 Memoria mellitus mellitus d 01:45:26 l (disorder) (disorder) Lyle baird Resolved Problem 10/24/2017 [facility] Epilepsy Epilepsy Problem Resolve 2017-10-24 Memoria (disorder) (disorder) d 01:45:26 l Resolved [place] Problem 10/24/2017 [facility] Hyperchole Hyperchol Problem Resolve 2017-10-24 Memoria sterolemia esterolemi d 01:45:26 l (disorder) a Noah n (disorder) Resolved Problem 10/24/2017 [facility] History of Past Illness Condition Condition Condition Status Onset Resolution Last Treating Co mments Source Name Details Category Date Date Treatment Clinician Date Strain of Strain of Problem 2016-112017-10-24 2017-10-24 Memoria muscle, muscle, 2- 01:45:26 01:45:26 l fascia and fascia and 06:00: He rmann tendon of tendon of 00 lower lower back, back, initial initial encounter encounter 10/21/2017 7 [facility] Acute Acute Problem 2016-112017-10-24 2017-10-24 M emoria post-traum post-traum 12-22 01:45:26 01:45:26 l atic atic 06:00: Asael headache, headache, 00 not not intractabl intractabl e e 10/21/2017 7 [facility] Allergies, Adverse Reactions, Alerts Allergy Allergy Status Severity Reaction(s) Onset Inactive Treating Comm ents Source Name Type Date Date Clinician NO KNOWN Drug Active Univers ALLERGIE Class ity of S [facility] Social History Social Habit Start Date Stop Date Quantity Comments Source Gender identity [facility] [place] [facility] [place] Sexual orientation [facility] [place] [facility] History [facility]TN University o f Alcohol Std Drinks [place] [facility] History [facility] University o f Alcohol [facility]inge [place] [facility] History [facility] University o f Housing Places [facility] Branch History of Social 2023-05-29 2023-05-29 Univers ity of function 00:00:00 00:00:00 [place] [facility] Tobacco use and 2023-05-29 2023-05-29 Smokeless Universit y of exposure 00:00:00 00:00:00 tobacco non-user [facility] dical Branch History SDTN 2023-04-27 2023-04-27 1 University o f Alcohol Frequency 00:00:00 00:00:00 [place] [facility] edical Branch History [facility] 2023-04-27 2023-04-27 2 University o f Transport Med 00:00:00 00:00:00 [place] [facility] History [facility]OH 2023-04-27 2023-04-27 2 University o f Transport Non-Med 00:00:00 00:00:00 [place] [facility] edical Branch History SDOH 2023-04-27 2023-04-27 2 University o f Housing Unable to 00:00:00 00:00:00 [place] [facility] edical Pay Branch History SDOH 2023-04-27 2023-04-27 2 University o f Housing Homeless 00:00:00 00:00:00 [facility] dical Last Year Branch Exposure to 2023-04-04 2023-04-14 Not sure [facility] SARS-CoV-2 (event) 00:00:00 21:51:00 [facility] Sex Ass[birth year] Universit y of 00:00:00 00:00:00 [facility] Smoking Status Start Date Stop Date Source Social History [facility] Medications Ordered Filled Start Stop Current Ordering Indication Dosage Frequency Signature Comments Components Source Medication Medication Date Date Medication? Clinician (SIG) Name Name risperiDONE Yes [id number] TAKE 1 Univers 1 mg tablet 8-04 TABLET BY ity of 00:00: MOUTH [place] 00 TWICE A Medical DAY Branch NEEDED FOR ACUTE PSYCHOSIS OR AGGRESION risperiDONE 2022-0 Yes [id number] TAKE 1 Univers 1 mg tablet 8-04 TABLET BY ity of 00:00: MOUTH [place] 00 TWICE A Medical DAY Branch NEEDED FOR ACUTE PSYCHOSIS OR AGGRESION carBAMazepi 2022-0 Yes [id number] 300mg Take 1.5 Univers ne 200 mg 7-11 tablets by ity of tablet 00:00: mouth [place] 00 every 12 Medical (twelve) Branch hours. divalproex 2022-0 Yes [id number] 1250mg Take 5 Univers ER 250 mg 7-11 tablets by ity of 24 hr 00:00: mouth at [place] tablet 00 bedtime. Medical Branch topiramate 0 Yes [id number] TAKE 1 Univers (TOPAMAX) 7-11 TABLET BY ity o f 200 mg 00:00: MOUTH [place] tablet 00 TWICE A Medical DAY...NEED Branch NEW INSURANCE risperiDONE 2022-0 Yes [id number] 1mg Take 1 Univers 1 mg tablet 7-11 tablet by ity of 00:00: mouth 2 [place] 00 (two) Medical times Branch daily as needed (for acute psychosis or aggresion) . risperiDONE 2022-0 Yes [id number] .5mg Take 1 Univers 0.5 mg 7-11 tablet by ity of tablet 00:00: mouth at [place] 00 bedtime. Medical Branch divalproex 2022-0 Yes [id number] 1000mg Take 2 Univers ER 500 mg 7-11 tablets by ity of 24 hr 00:00: mouth [place] tablet 00 every Medical morning Branch and at 1200 (noon). PHENobarbit 2022-0 Yes [id number] 64.8mg Take 1 Univers aL 64.8 mg 7-11 tablet by ity of tablet 00:00: mouth in [place] 00 the Medical morning. Branch clonazePAM 2022-0 Yes [id number] 1mg Take 1 Univers 1 mg tablet 7-11 tablet by ity of 00:00: mouth in [place] 00 the Medical morning Branch and 1 tablet at noon and 1 tablet in the evening. carBAMazepi 2022-0 Yes [id number] 300mg Take 1.5 Univers ne 200 mg 7-11 tablets by ity of tablet 00:00: mouth [place] 00 every 12 Medical (twelve) Branch hours. divalproex 2022-0 Yes [id number] 1250mg Take 5 Univers ER 250 mg 7-11 tablets by ity of 24 hr 00:00: mouth at [place] tablet 00 bedtime. Medical Branch topiramate 2022-0 Yes [id number] TAKE 1 Univers (TOPAMAX) 7-11 TABLET BY ity o f 200 mg 00:00: MOUTH [place] tablet 00 TWICE A Medical DAY...NEED Branch NEW INSURANCE risperiDONE 2022-0 Yes [id number] 1mg Take 1 Univers 1 mg tablet 7-11 tablet by ity of 00:00: mouth 2 [place] 00 (two) Medical times Branch daily as needed (for acute psychosis or aggresion) . risperiDONE 2022-0 Yes [id number] .5mg Take 1 Univers 0.5 mg 7-11 tablet by ity of tablet 00:00: mouth at [place] 00 bedtime. Medical Branch divalproex 2022-0 Yes [id number] 1000mg Take 2 Univers ER 500 mg 7-11 tablets by ity of 24 hr 00:00: mouth [place] tablet 00 every Medical morning Branch and at 1200 (noon). PHENobarbit 2022-0 Yes [id number] 64.8mg Take 1 Univers aL 64.8 mg 7-11 tablet by ity of tablet 00:00: mouth in [place] 00 the Medical morning. Branch clonazePAM 2022-0 Yes [id number] 1mg Take 1 Univers 1 mg tablet 7-11 tablet by ity of 00:00: mouth in [place] 00 the Medical morning Branch and 1 tablet at noon and 1 tablet in the evening. carBAMazepi 2022-0 Yes [id number] 300mg Take 1.5 Univers ne 200 mg 7-11 tablets by ity of tablet 00:00: mouth [place] 00 every 12 Medical (twelve) Branch hours. divalproex 2022-0 Yes [id number] 1250mg Take 5 Univers ER 250 mg 7-11 tablets by ity of 24 hr 00:00: mouth at [place] tablet 00 bedtime. Medical Branch topiramate 2022-0 Yes [id number] TAKE 1 Univers (TOPAMAX) 7-11 TABLET BY ity o f 200 mg 00:00: MOUTH [place] tablet 00 TWICE A Medical DAY...NEED Branch NEW INSURANCE risperiDONE 2022-0 Yes [id number] 1mg Take 1 Univers 1 mg tablet 7-11 tablet by ity of 00:00: mouth 2 [place] 00 (two) Medical times Branch daily as needed (for acute psychosis or aggresion) . risperiDONE 2022-0 Yes [id number] .5mg Take 1 Univers 0.5 mg 7-11 tablet by ity of tablet 00:00: mouth at [place] 00 bedtime. Medical Branch divalproex 2022-0 Yes [id number] 1000mg Take 2 Univers ER 500 mg 7-11 tablets by ity of 24 hr 00:00: mouth [place] tablet 00 every Medical morning Branch and at 1200 (noon). PHENobarbit 2022-0 Yes [id number] 64.8mg Take 1 Univers aL 64.8 mg 7-11 tablet by ity of tablet 00:00: mouth in [place] 00 the Medical morning. Branch clonazePAM 2022-0 Yes [id number] 1mg Take 1 Univers 1 mg tablet 7-11 tablet by ity of 00:00: mouth in [place] 00 the Medical morning Branch and 1 tablet at noon and 1 tablet in the evening. carBAMazepi 2022-0 Yes [id number] 300mg Take 1.5 Univers ne 200 mg 7-11 tablets by ity of tablet 00:00: mouth [place] 00 every 12 Medical (twelve) Branch hours. divalproex 2022-0 Yes [id number] 1250mg Take 5 Univers ER 250 mg 7-11 tablets by ity of 24 hr 00:00: mouth at [place] tablet 00 bedtime. Medical Branch topiramate 2022-0 Yes [id number] TAKE 1 Univers (TOPAMAX) 7-11 TABLET BY ity o f 200 mg 00:00: MOUTH [place] tablet 00 TWICE A Medical DAY...NEED Branch NEW INSURANCE risperiDONE 2022-0 Yes [id number] 1mg Take 1 Univers 1 mg tablet 7-11 tablet by ity of 00:00: mouth 2 [place] 00 (two) Medical times Branch daily as needed (for acute psychosis or aggresion) . risperiDONE 2022-0 Yes [id number] .5mg Take 1 Univers 0.5 mg 7-11 tablet by ity of tablet 00:00: mouth at [place] 00 bedtime. Medical Branch divalproex 2022-0 Yes [id number] 1000mg Take 2 Univers ER 500 mg 7-11 tablets by ity of 24 hr 00:00: mouth [place] tablet 00 every Medical morning Branch and at 1200 (noon). PHENobarbit 2022-0 Yes [id number] 64.8mg Take 1 Univers aL 64.8 mg 7-11 tablet by ity of tablet 00:00: mouth in [place] 00 the Medical morning. Branch clonazePAM 2022-0 Yes [id number] 1mg Take 1 Univers 1 mg tablet 7-11 tablet by ity of 00:00: mouth in [place] 00 the Medical morning Branch and 1 tablet at noon and 1 tablet in the evening. carBAMazepi 2022-0 Yes [id number] 300mg Take 1.5 Univers ne 200 mg 7-11 tablets by ity of tablet 00:00: mouth [place] 00 every 12 Medical (twelve) Branch hours. divalproex 2022-0 Yes [id number] 1250mg Take 5 Univers ER 250 mg 7-11 tablets by ity of 24 hr 00:00: mouth at [place] tablet 00 bedtime. Medical Branch topiramate 2022-0 Yes [id number] TAKE 1 Univers (TOPAMAX) 7-11 TABLET BY ity o f 200 mg 00:00: MOUTH [place] tablet 00 TWICE A Medical DAY...NEED Branch NEW INSURANCE risperiDONE 2022-0 Yes [id number] .5mg Take 1 Univers 0.5 mg 7-11 tablet by ity of tablet 00:00: mouth at [place] 00 bedtime. Medical Branch divalproex 2022-0 Yes [id number] 1000mg Take 2 Univers ER 500 mg 7-11 tablets by ity of 24 hr 00:00: mouth [place] tablet 00 every Medical morning Branch and at 1200 (noon). PHENobarbit 2022-0 Yes [id number] 64.8mg Take 1 Univers aL 64.8 mg 7-11 tablet by ity of tablet 00:00: mouth in [place] 00 the Medical morning. Branch clonazePAM 2022-0 Yes [id number] 1mg Take 1 Univers 1 mg tablet 7-11 tablet by ity of 00:00: mouth in [place] 00 the Medical morning Branch and 1 tablet at noon and 1 tablet in the evening. carBAMazepi 2022-0 Yes [id number] 300mg Take 1.5 Univers ne 200 mg 7-11 tablets by ity of tablet 00:00: mouth [place] 00 every 12 Medical (twelve) Branch hours. divalproex 2022-0 Yes [id number] 1250mg Take 5 Univers ER 250 mg 7-11 tablets by ity of 24 hr 00:00: mouth at [place] tablet 00 bedtime. Medical Branch topiramate 2022-0 Yes [id number] TAKE 1 Univers (TOPAMAX) 7-11 TABLET BY ity o f 200 mg 00:00: MOUTH [place] tablet 00 TWICE A Medical DAY...NEED Branch NEW INSURANCE risperiDONE 2022-0 Yes [id number] .5mg Take 1 Univers 0.5 mg 7-11 tablet by ity of tablet 00:00: mouth at [place] 00 bedtime. Medical Branch divalproex 2022-0 Yes [id number] 1000mg Take 2 Univers ER 500 mg 7-11 tablets by ity of 24 hr 00:00: mouth [place] tablet 00 every Medical morning Branch and at 1200 (noon). PHENobarbit 2022-0 Yes [id number] 64.8mg Take 1 Univers aL 64.8 mg 7-11 tablet by ity of tablet 00:00: mouth in [place] 00 the Medical morning. Branch clonazePAM 2022-0 Yes [id number] 1mg Take 1 Univers 1 mg tablet 7-11 tablet by ity of 00:00: mouth in [place] 00 the Medical morning Branch and 1 tablet at noon and 1 tablet in the evening. risperiDONE 2022-0 3- No [id number] 1mg Take 1 Univers 1 mg tablet 05-29 tablet by it y of 00:00: 00:00 mouth 2 [place] 00 :00 (two) Medical times [place] daily as needed (for acute psychosis or aggresion) . rosuvastati 3-0 Yes 10mg 10 mg, Univ ers n (CRESTOR) 6-19 Oral, QHS, it y of tablet 10 02:00: First dose [place] mg 00 on [facility] 05/06/23 at Branch 2100, Until Discontinu ed, Routine risperiDONE 2022-0 Yes .5mg 0.5 mg, Uni vers (RISPERDAL) 6-19 Oral, QHS, it y of tablet 0.5 02:00: First dose [place] mg 00 on [facility] 05/06/23 at [place] 2100, Until Discontinu ed, Routine carBAMazepi 2022-0 Yes 300mg 300 mg, Un luisa ne 6-18 Oral, QPM, ity of (TEGRETOL) 22:00: First dose [place] tablet 300 00 on [facility] 05/06/23 at Branch 1700, Until Discontinu ed, Routine enoxaparin 2022-0 Yes 40mg 40 mg, Unive rs (LOVENOX) 6-18 Subcutaneo ity of injection 22:00: [place], DAILY, [place] 40 mg 00 First dose Medical on [facility] 05/06/23 at 1700, Until Discontinu ed, Routine hydroCHLORO 2023-0 Yes 25mg Take 1 Univ ers thiazide 25 6-18 tablet by ity of mg tablet 14:22: mouth in [place] [address] the Medical morning. Branch metFORMIN 2023-0 Yes 1000mg Take 1 Univ ers 1,000 mg 6-18 tablet by ity of tablet 14:22: mouth in [place] [address] the Medical morning Branch and 1 tablet in the evening. Take with meals. hydroCHLORO 2023-0 Yes 25mg Take 1 Univ ers thiazide 25 6-18 tablet by ity of mg tablet 14:22: mouth in [place] [address] the Medical morning. Branch metFORMIN 2023-0 Yes 1000mg Take 1 Univ ers 1,000 mg 6-18 tablet by ity of tablet 14:22: mouth in [address] Branch and 1 tablet in the evening. Take with meals. hydroCHLORO 2023-0 Yes 25mg Take 1 Univ ers thiazide 25 6-18 tablet by ity of mg tablet 14:22: mouth in [place] [address] the [facility] morning. Branch metFORMIN 2023-0 Yes 1000mg Take 1 Univ ers 1,000 mg 6-18 tablet by ity of tablet 14:22: mouth in [address] Branch and 1 tablet in the evening. Take with meals. hydroCHLORO 2023-0 Yes 25mg Take 1 Univ ers thiazide 25 6-18 tablet by ity of mg tablet 14:22: mouth in [place] [address] the Medical morning. Branch metFORMIN 2023-0 Yes 1000mg Take 1 Univ ers 1,000 mg 6-18 tablet by ity of tablet 14:22: mouth in [address] and 1 tablet in the evening. Take with meals. hydroCHLORO 2023-0 Yes 25mg Take 1 Univ ers thiazide 25 6-18 tablet by ity of mg tablet 14:22: mouth in [place] [address] the Medical morning. Branch metFORMIN 2023-0 Yes 1000mg Take 1 Univ ers 1,000 mg 6-18 tablet by ity of tablet 14:22: mouth in [address] Branch and 1 tablet in the evening. Take with meals. hydroCHLORO 2023-0 Yes 25mg Take 1 Univ ers thiazide 25 6-18 tablet by ity of mg tablet 14:22: mouth in [place] [address] the Medical morning. Branch metFORMIN 2023-0 Yes 1000mg Take 1 Univ ers 1,000 mg 6-18 tablet by ity of tablet 14:22: mouth in [address] Branch and 1 tablet in the evening. Take with meals. hydroCHLORO 2023-0 Yes 25mg Take 1 Univ ers thiazide 25 6-18 tablet by ity of mg tablet 14:22: mouth in [place] [address] the Medical morning. Branch metFORMIN 2023-0 Yes 1000mg Take 1 Univ ers 1,000 mg 6-18 tablet by ity of tablet 14:22: mouth in [address] Branch and 1 tablet in the evening. Take with meals. hydroCHLORO 2023-0 Yes 25mg Take 1 Univ ers thiazide 25 6-18 tablet by ity of mg tablet 14:22: mouth in [place] [address] the Medical morning. Branch metFORMIN 2023-0 Yes 1000mg Take 1 Univ ers 1,000 mg 6-18 tablet by ity of tablet 14:22: mouth in [address] Branch and 1 tablet in the evening. Take with meals. hydroCHLORO 2023-0 Yes 25mg Take 1 Univ ers thiazide 25 6-18 tablet by ity of mg tablet 14:22: mouth in [place] [address] the Medical morning. Branch metFORMIN 2023-0 Yes 1000mg Take 1 Univ ers 1,000 mg 6-18 tablet by ity of tablet 14:22: mouth in [place] [address] the Medical morning Branch and 1 tablet in the evening. Take with meals. hydroCHLORO 2023-0 Yes 25mg Take 1 Univ ers thiazide 25 6-18 tablet by ity of mg tablet 14:22: mouth in [place] [address] the Medical morning. Branch metFORMIN 2023-0 Yes 1000mg Take 1 Univ ers 1,000 mg 6-18 tablet by ity of tablet 14:22: mouth in [address] Branch and 1 tablet in the evening. Take with meals. pantoprazol 2023-0 Yes 40mg 40 mg, Univ ers e 6-18 Oral, ity of (PROTONIX) 14:00: DAILY, [place] [facility] tablet 00 First dose Medi rohan 40 mg on [facility] 05/06/23 at 0900, Until Discontinu ed, Routine vitamin 2023-0 Yes 1000ug 1,000 mcg, Un luisa B-12 6-18 Oral, ity of (CYANOCOBAL 14:00: DAILY, [facility] [place]) 00 First dose Medical tablet on [facility] 1,000 mcg 05/06/23 at 0900, Until Discontinu ed, Routine thiamine 2023-0 Yes 100mg 100 mg, Unive rs (VITAMIN 6-18 Oral, ity of B1) tablet 14:00: DAILY, [place] 100 mg 00 First dose Medical on [facility] 05/06/23 at 0900, Until Discontinu ed, Routine hydroCHLORO 2023-0 Yes 25mg 25 mg, Univ ers thiazide 6-18 Oral, ity of (ESIDRIX) 14:00: DAILY, [place] tablet 25 00 First dose Medi rohan mg on [facility] 05/06/23 at 0900, Until Discontinu ed, Routine divalproex 2023-0 Yes 1000mg 1,000 mg, Univers ER 05-06 Oral, QAM ity of (DEPAKOTE 14:00: + NOON, [place] ER) 24 hr 00 First dose Medi rohan tablet on [place] Branch 1,000 mg 05/06/23 at 0900, Until Discontinu ed, Routine carBAMazepi 2022-0 Yes 300mg 300 mg, Un luisa ne 05-06 Oral, TID, ity of (TEGRETOL) 13:00: First dose [place] tablet 300 00 (after Medical mg last Branch modificati on) on [place] 05/06/23 at 0800, Until Discontinu ed, Routine zonisamide 0 Yes 50mg 50 mg, Unive rs (ZONEGRAN) 05-06 Oral, BID, ity of capsule 50 13:00: First dose [place] mg 00 on [facility] 05/06/23 at Branch 0800, Until Discontinu ed, Routine topiramate 0 Yes 200mg 200 mg, Uni vers (TOPAMAX) 05-06 Oral, ity of tablet 200 13:00: Q12H, [place] mg 00 First dose Medical on [facility] 05/06/23 at 0800, Until Discontinu ed, Routine
pricing/signage team member approving Restricted medication : IRA PATEL levothyroxi 0 Yes 75ug 75 mcg, Uni vers ne 05-06 Oral, ity of (SYNTHROID) 11:00: QAM-0600, [place] tablet 75 00 First dose Medi rohan mcg on [place] Branch 05/06/23 at 0600, Until Discontinu ed, Routine acetaminoph 0 Yes 650mg 650 mg, Un luisa en 05-06 Oral, ity of (TYLENOL) 08:40: Q6HPRN, [place] tablet 650 30 Starting Medic al mg on [place] Branch 05/06/23 at 0340, Until Discontinu ed, Routine, Pain (scale 4-6) docusate 2022-0 Yes 100mg 100 mg, Unive rs (COLACE) 18 Oral, ity of capsule 100 08:40: QDAILYPRN, [place] mg 30 Starting Medical on [place] Branch 05/06/23 at 0340, Until Discontinu ed, Routine, Constipati on risperiDONE 2022-0 Yes 1mg 1 mg, Unive rs (RISPERDAL) 18 Oral, ity of tablet 1 mg 08:38: BIDPRN, [place] 40 Starting Medical on [place] 05/06/23 at 0338, Until Discontinu ed, Routine, for acute psychosis or aggresion butalbital- Yes 1{tbl} 1 tablet, Univers acetaminoph 05-06 Oral, ity of en-caff 08:37: Q6HPRN, [place] (ESGIC) 25 Starting Medical 50-325-40 on [place] mg tablet 1 05/06/23 at tablet 0337, Until Discontinu ed, Routine, headache ketorolac 2022- Yes 15mg 15 mg, Unive rs (TORADOL) 05-06 06-19 Slow IV ity of injection 04:40: 04:39 Push, [place] 15 mg 19 :19 Q8HPRN, Medical Starting Branch on 05/05/23 at 2340, Until 05/06/23 at 2339, Routine, Pain (scale 7-10) carBAMazepi 2022- Yes [id number] Take 1.5 Univers ne 200 mg 6-18 08-14 tablets by ity of tablet 00:00: 04:59 mouth [place] 00 :00 every 8 Medical (eight) Branch hours for 14 days, THEN 1 tablet every 8 (eight) hours for 14 days, THEN 1 tablet every 12 (twelve) hours for 14 days, THEN 0.5 tablets every 12 (twelve) hours for 14 days. carBAMazepi 2022- Yes [id number] Take 1.5 Univers ne 200 mg 6-18 08-14 tablets by ity of tablet 00:00: 04:59 mouth [place] 00 :00 every 8 Medical (eight) Branch hours for 14 days, THEN 1 tablet every 8 (eight) hours for 14 days, THEN 1 tablet every 12 (twelve) hours for 14 days, THEN 0.5 tablets every 12 (twelve) hours for 14 days. carBAMazepi 2022- Yes [id number] Take 1.5 Univers ne 200 mg 6-18 08-14 tablets by ity of tablet 00:00: 04:59 mouth [place] 00 :00 every 8 Medical (eight) Branch hours for 14 days, THEN 1 tablet every 8 (eight) hours for 14 days, THEN 1 tablet every 12 (twelve) hours for 14 days, THEN 0.5 tablets every 12 (twelve) hours for 14 days. carBAMazepi 2022-0 2022- No [id number] Take 1.5 Univers ne 200 mg 6-18 07-11 tablets by ity of tablet 00:00: 00:00 mouth [place] 00 :00 every 8 Medical (eight) Branch hours for 14 days, THEN 1 tablet every 8 (eight) hours for 14 days, THEN 1 tablet every 12 (twelve) hours for 14 days, THEN 0.5 tablets every 12 (twelve) hours for 14 days. carBAMazepi 2022-0 2022- No [id number] Take 1.5 Univers ne 200 mg 6-18 07-11 tablets by ity of tablet 00:00: 00:00 mouth [place] 00 :00 every 8 Medical (eight) Branch hours for 14 days, THEN 1 tablet every 8 (eight) hours for 14 days, THEN 1 tablet every 12 (twelve) hours for 14 days, THEN 0.5 tablets every 12 (twelve) hours for 14 days. carBAMazepi 2022-0 2022- No [id number] Take 1.5 Univers ne 200 mg 6-18 07-11 tablets by ity of tablet 00:00: 00:00 mouth [place] 00 :00 every 8 Medical (eight) Branch hours for 14 days, THEN 1 tablet every 8 (eight) hours for 14 days, THEN 1 tablet every 12 (twelve) hours for 14 days, THEN 0.5 tablets every 12 (twelve) hours for 14 days. hydroCHLORO 2023-0 Yes 25mg Take 1 Univ ers thiazide 25 6-17 tablet by ity of mg tablet 21:58: mouth in [place] [address] the Medical morning. Branch metFORMIN 2023-0 Yes 1000mg Take 1 Univ ers 1,000 mg 6-17 tablet by ity of tablet 21:58: mouth in [place] [address] the Medical morning Branch and 1 tablet in the evening. Take with meals. risperiDONE 2023-0 Yes .5mg 0.5 mg, Uni vers (RISPERDAL) 6-17 Oral, QHS, it y of tablet 0.5 02:00: First dose [place] mg 00 (after Medical last Branch modificati on) on Sun05/04/23 at 2100, Until Discontinu ed, Routine acetaminoph 2023-0 2022- No 500mg Take 1 Un luisa en (TYLENOL 6-16 06-16 tablet by it y of EXTRA 14:39: 00:00 mouth [place] STRENGTH) 04 :00 every 6 Medical 500 mg (six) Branch tablet hours as needed for Pain. clonazePAM 3-0 Yes [id number] 1.5mg Take 3 [facility] 0.5 mg 6-16 tablets by ity of tablet 00:00: mouth in [place] 00 the Medical morning Branch and 3 tablets at noon and 3 tablets in the evening. clonazePAM 3-0 Yes [id number] 1.5mg Take 3 [facility] 0.5 mg 6-16 tablets by ity of tablet 00:00: mouth in [place] 00 the Medical morning Branch and 3 tablets at noon and 3 tablets in the evening. clonazePAM 3-0 Yes [id number] 1.5mg Take 3 [facility] 0.5 mg 6-16 tablets by ity of tablet 00:00: mouth in [place] 00 the Medical morning Branch and 3 tablets at noon and 3 tablets in the evening. clonazePAM 3-0 Yes [id number] 1.5mg Take 3 [facility] 0.5 mg 6-16 tablets by ity of tablet 00:00: mouth in [place] 00 the Medical morning Branch and 3 tablets at noon and 3 tablets in the evening. levothyroxi 0 2023- Yes [id number] 75ug Take 1 [facility] ne 75 mcg 6-16 06-11 tablet by ity of tablet 00:00: 04:59 mouth [place] 00 :00 every Medical morning Branch for 360 days. levothyroxi 2022-2023- Yes [id number] 75ug Take 1 [facility] ne 75 mcg 6-16 06-11 tablet by ity of tablet 00:00: 04:59 mouth [place] 00 :00 every Medical morning Branch for 360 days. levothyroxi 2022-0 2023- Yes [id number] 75ug Take 1 [facility] ne 75 mcg 6-16 06-11 tablet by ity of tablet 00:00: 04:59 mouth [place] 00 :00 every Medical morning Branch for 360 days. levothyroxi 2022-0 2023- Yes [id number] 75ug Take 1 [facility] ne 75 mcg 6-16 06-11 tablet by ity of tablet 00:00: 04:59 mouth [place] 00 :00 every Medical morning Branch for 360 days. levothyroxi 2023- Yes [id number] 75ug Take 1 [facility] ne 75 mcg 6-16 06-11 tablet by ity of tablet 00:00: 04:59 mouth [place] 00 :00 every Medical morning Branch for 360 days. levothyroxi 2023- Yes [id number] 75ug Take 1 [facility] ne 75 mcg 6-16 06-11 tablet by ity of tablet 00:00: 04:59 mouth [place] 00 :00 every Medical morning Branch for 360 days. levothyroxi 2023- Yes [id number] 75ug Take 1 [facility] ne 75 mcg 6-16 06-11 tablet by ity of tablet 00:00: 04:59 mouth [place] 00 :00 every Medical morning Branch for 360 days. levothyroxi 2023- Yes [id number] 75ug Take 1 [facility] ne 75 mcg 6-16 06-11 tablet by ity of tablet 00:00: 04:59 mouth [place] 00 :00 every Medical morning Branch for 360 days. levothyroxi 2023- Yes [id number] 75ug Take 1 [facility] ne 75 mcg 6-16 06-11 tablet by ity of tablet 00:00: 04:59 mouth [place] 00 :00 every Medical morning Branch for 360 days. levothyroxi 2023- Yes [id number] 75ug Take 1 [facility] ne 75 mcg 6-16 06-11 tablet by ity of tablet 00:00: 04:59 mouth [place] 00 :00 every Medical morning Branch for 360 days. divalproex 2022- Yes [id number] 1000mg Take 2 [facility] ER 500 mg 6-16 12-14 tablets by ity of 24 hr 00:00: 05:59 mouth [place] tablet 00 :00 every Medical morning Branch and at 1200 (noon) for 180 days. divalproex 2022- Yes [id number] 1250mg Take 5 [facility] ER 250 mg 6-16 12-14 tablets by ity of 24 hr 00:00: 05:59 mouth at [place] tablet 00 :00 bedtime Medical for 180 Branch days. thiamine 2022- Yes [id number] 100mg Take 1 [facility] 100 mg 6-16 12-14 tablet by ity of tablet 00:00: 05:59 mouth in [place] 00 :00 the Medical morning Branch for 180 days. vitamin 2022- Yes [id number] 1000ug Take 1 U nivers B-12 1,000 6-16 12-14 tablet by ity of mcg tablet 00:00: 05:59 mouth in [place] 00 :00 the Medical morning Branch for 180 days. zonisamide 2022- Yes [id number] 50mg Take 1 [facility] 50 mg 6-16 12-14 capsule by ity of capsule 00:00: 05:59 mouth in [place] 00 :00 the Medical morning Branch and 1 capsule in the evening. Do all this for 180 days. risperiDONE 2022- Yes [id number] .5mg Take 1 [facility] 0.5 mg 6-16 12-14 tablet by ity of tablet 00:00: 05:59 mouth at [place] 00 :00 bedtime Medical for 180 Branch days. divalproex 2022- Yes [id number] 1000mg Take 2 [facility] ER 500 mg 6-16 12-14 tablets by ity of 24 hr 00:00: 05:59 mouth [place] tablet 00 :00 every Medical morning Branch and at 1200 (noon) for 180 days. divalproex 2022- Yes [id number] 1250mg Take 5 [facility] ER 250 mg 6-16 12-14 tablets by ity of 24 hr 00:00: 05:59 mouth at [place] tablet 00 :00 bedtime Medical for 180 Branch days. thiamine 2022- Yes [id number] 100mg Take 1 [facility] 100 mg 6-16 12-14 tablet by ity of tablet 00:00: 05:59 mouth in [place] 00 :00 the Medical morning Branch for 180 days. vitamin 2022- Yes [id number] 1000ug Take 1 U nivers B-12 1,000 6-16 12-14 tablet by ity of mcg tablet 00:00: 05:59 mouth in [place] 00 :00 the Medical morning Branch for 180 days. zonisamide 2022- Yes [id number] 50mg Take 1 [facility] 50 mg 6-16 12-14 capsule by ity of capsule 00:00: 05:59 mouth in [place] 00 :00 the Medical morning Branch and 1 capsule in the evening. Do all this for 180 days. risperiDONE 2022- Yes [id number] .5mg Take 1 [facility] 0.5 mg 6-16 12-14 tablet by ity of tablet 00:00: 05:59 mouth at [place] 00 :00 bedtime Medical for 180 Branch days. divalproex 2022- Yes [id number] 1000mg Take 2 [facility] ER 500 mg 6-16 12-14 tablets by ity of 24 hr 00:00: 05:59 mouth [place] tablet 00 :00 every Medical morning Branch and at 1200 (noon) for 180 days. divalproex 2022- Yes [id number] 1250mg Take 5 [facility] ER 250 mg 6-16 12-14 tablets by ity of 24 hr 00:00: 05:59 mouth at [place] tablet 00 :00 bedtime Medical for 180 Branch days. thiamine 2022- Yes [id number] 100mg Take 1 [facility] 100 mg 6-16 12-14 tablet by ity of tablet 00:00: 05:59 mouth in [place] 00 :00 the Medical morning Branch for 180 days. vitamin 2022- Yes [id number] 1000ug Take 1 U nivers B-12 1,000 6-16 12-14 tablet by ity of mcg tablet 00:00: 05:59 mouth in [place] 00 :00 the Medical morning Branch for 180 days. zonisamide 2022- Yes [id number] 50mg Take 1 [facility] 50 mg 6-16 12-14 capsule by ity of capsule 00:00: 05:59 mouth in [place] 00 :00 the Medical morning Branch and 1 capsule in the evening. Do all this for 180 days. risperiDONE 2022- Yes [id number] .5mg Take 1 [facility] 0.5 mg 6-16 12-14 tablet by ity of tablet 00:00: 05:59 mouth at [place] 00 :00 bedtime Medical for 180 Branch days. thiamine 2022- Yes [id number] 100mg Take 1 [facility] 100 mg 6-16 12-14 tablet by ity of tablet 00:00: 05:59 mouth in [place] 00 :00 the Medical morning Branch for 180 days. vitamin 2022- Yes [id number] 1000ug Take 1 U nivers B-12 1,000 6-16 12-14 tablet by ity of mcg tablet 00:00: 05:59 mouth in [place] 00 :00 the Medical morning Branch for 180 days. zonisamide 2022- Yes [id number] 50mg Take 1 [facility] 50 mg 6-16 12-14 capsule by ity of capsule 00:00: 05:59 mouth in [place] 00 :00 the [facility] morning Branch and 1 capsule in the evening. Do all this for 180 days. thiamine 2022-2022- Yes [id number] 100mg Take 1 [facility] 100 mg 6-16 12-14 tablet by ity of tablet 00:00: 05:59 mouth in [place] 00 :00 the [facility] for 180 days. vitamin 2022- Yes [id number] 1000ug Take 1 U nivers B-12 1,000 6-16 12-14 tablet by ity of mcg tablet 00:00: 05:59 mouth in [place] 00 :00 the [facility] for 180 days. zonisamide 2022- Yes [id number] 50mg Take 1 [facility] 50 mg 6-16 12-14 capsule by ity of capsule 00:00: 05:59 mouth in [place] 00 :00 the [facility] and 1 capsule in the evening. Do all this for 180 days. thiamine 2022-2022- Yes [id number] 100mg Take 1 [facility] 100 mg 6-16 12-14 tablet by ity of tablet 00:00: 05:59 mouth in [place] 00 :00 the [facility] for 180 days. vitamin 2022- Yes [id number] 1000ug Take 1 U nivers B-12 1,000 6-16 12-14 tablet by ity of mcg tablet 00:00: 05:59 mouth in [place] 00 :00 the [facility] for 180 days. zonisamide 2022- Yes [id number] 50mg Take 1 [facility] 50 mg 6-16 12-14 capsule by ity of capsule 00:00: 05:59 mouth in [place] 00 :00 the [facility] and 1 capsule in the evening. Do all this for 180 days. thiamine 2022- Yes [id number] 100mg Take 1 [facility] 100 mg 6-16 12-14 tablet by ity of tablet 00:00: 05:59 mouth in [place] 00 :00 the [facility] for 180 days. vitamin 2022- Yes [id number] 1000ug Take 1 U nivers B-12 1,000 6-16 12-14 tablet by ity of mcg tablet 00:00: 05:59 mouth in [place] 00 :00 the [facility] morning [place] for 180 days. zonisamide 2022- Yes [id number] 50mg Take 1 [facility] 50 mg 6-16 12-14 capsule by ity of capsule 00:00: 05:59 mouth in [place] 00 :00 the Medical morning Branch and 1 capsule in the evening. Do all this for 180 days. thiamine 2022- Yes [id number] 100mg Take 1 [facility] 100 mg 6-16 12-14 tablet by ity of tablet 00:00: 05:59 mouth in [place] 00 :00 the [facility] for 180 days. vitamin 2022- Yes [id number] 1000ug Take 1 U nivers B-12 1,000 6-16 12-14 tablet by ity of mcg tablet 00:00: 05:59 mouth in [place] 00 :00 the [facility] for 180 days. zonisamide 2022- Yes [id number] 50mg Take 1 [facility] 50 mg 6-16 12-14 capsule by ity of capsule 00:00: 05:59 mouth in [place] 00 :00 the [facility] morning Branch and 1 capsule in the evening. Do all this for 180 days. thiamine 2022- Yes [id number] 100mg Take 1 [facility] 100 mg 6-16 12-14 tablet by ity of tablet 00:00: 05:59 mouth in [place] 00 :00 the [facility] for 180 days. vitamin 2022- Yes [id number] 1000ug Take 1 U nivers B-12 1,000 6-16 12-14 tablet by ity of mcg tablet 00:00: 05:59 mouth in [place] 00 :00 the [facility] morning [place] for 180 days. zonisamide 2022- Yes [id number] 50mg Take 1 [facility] 50 mg 6-16 12-14 capsule by ity of capsule 00:00: 05:59 mouth in [place] 00 :00 the [facility] morning Branch and 1 capsule in the evening. Do all this for 180 days. divalproex 2022- Yes [id number] 1000mg Take 2 [facility] ER 500 mg 6-16 12-14 tablets by ity of 24 hr 00:00: 05:59 mouth [place] tablet 00 :00 every Medical morning Branch and at 1200 (noon) for 180 days. divalproex 2022- Yes [id number] 1250mg Take 5 [facility] ER 250 mg 6-16 12-14 tablets by ity of 24 hr 00:00: 05:59 mouth at [place] tablet 00 :00 bedtime Medical for 180 Branch days. thiamine 2022- Yes [id number] 100mg Take 1 [facility] 100 mg 6-16 12-14 tablet by ity of tablet 00:00: 05:59 mouth in [place] 00 :00 the Medical morning Branch for 180 days. vitamin 2022- Yes [id number] 1000ug Take 1 U nivers B-12 1,000 6-16 12-14 tablet by ity of mcg tablet 00:00: 05:59 mouth in [place] 00 :00 the Medical morning Branch for 180 days. zonisamide 2022- Yes [id number] 50mg Take 1 [facility] 50 mg 6-16 12-14 capsule by ity of capsule 00:00: 05:59 mouth in [place] 00 :00 the Medical morning Branch and 1 capsule in the evening. Do all this for 180 days. risperiDONE 2022- Yes [id number] .5mg Take 1 [facility] 0.5 mg 6-16 12-14 tablet by ity of tablet 00:00: 05:59 mouth at [place] 00 :00 bedtime Medical for 180 Branch days. pantoprazol 2022- Yes [id number] 40mg Take 1 Univers e 40 mg EC 6-16 09-15 tablet by ity of tablet 00:00: 04:59 mouth in [place] 00 :00 the Medical morning Branch for 90 days. pantoprazol 2022- Yes [id number] 40mg Take 1 Univers e 40 mg EC 6-16 09-15 tablet by ity of tablet 00:00: 04:59 mouth in [place] 00 :00 the Medical morning Branch for 90 days. pantoprazol 2022- Yes [id number] 40mg Take 1 Univers e 40 mg EC 6-16 09-15 tablet by ity of tablet 00:00: 04:59 mouth in [place] 00 :00 the Medical morning Branch for 90 days. pantoprazol 2022- Yes [id number] 40mg Take 1 Univers e 40 mg EC 6-16 -15 tablet by ity of tablet 00:00: 04:59 mouth in [place] 00 :00 the [facility] Branch for 90 days. pantoprazol 2022- Yes [id number] 40mg Take 1 Univers e 40 mg EC 6-16 -15 tablet by ity of tablet 00:00: 04:59 mouth in [place] 00 :00 the [facility] Branch for 90 days. pantoprazol 2022- Yes [id number] 40mg Take 1 Univers e 40 mg EC 6-16 -15 tablet by ity of tablet 00:00: 04:59 mouth in [place] 00 :00 the [facility] Branch for 90 days. pantoprazol 2022- Yes [id number] 40mg Take 1 Univers e 40 mg EC 6-16 -15 tablet by ity of tablet 00:00: 04:59 mouth in [place] 00 :00 the [facility] Branch for 90 days. pantoprazol 2022- Yes [id number] 40mg Take 1 Univers e 40 mg EC 6-16 -15 tablet by ity of tablet 00:00: 04:59 mouth in [place] 00 :00 the [facility] Branch for 90 days. pantoprazol 2022- Yes [id number] 40mg Take 1 Univers e 40 mg EC 6-16 -15 tablet by ity of tablet 00:00: 04:59 mouth in [place] 00 :00 the [facility] Branch for 90 days. pantoprazol 2022- Yes [id number] 40mg Take 1 Univers e 40 mg EC 6-16 -15 tablet by ity of tablet 00:00: 04:59 mouth in [place] 00 :00 the [facility] Branch for 90 days. carBAMazepi 2022- Yes [id number] Take 1.5 Univers ne 200 mg 6-16 08-12 tablets by ity of tablet 00:00: 04:59 mouth [place] 00 :00 every 8 Medical (eight) Branch hours for 14 days, THEN 1 tablet every 8 (eight) hours for 14 days, THEN 1 tablet every 12 (twelve) hours for 14 days, THEN 0.5 tablets every 12 (twelve) hours for 14 days. risperiDONE 2022- Yes [id number] 1mg Take 1 Univers 1 mg tablet 6- 07-17 tablet by it y of 00:00: 04:59 mouth 2 [place] 00 :00 (two) Medical times Branch daily as needed (for acute psychosis or aggresion) for up to 30 days. risperiDONE 2022- Yes [id number] 1mg Take 1 Univers 1 mg tablet 6-03 06-17 tablet by it y of 00:00: 04:59 mouth 2 [place] 00 :00 (two) Medical times Branch daily as needed (for acute psychosis or aggresion) for up to 30 days. risperiDONE 2022- Yes [id number] 1mg Take 1 Univers 1 mg tablet 6-03 06-17 tablet by it y of 00:00: 04:59 mouth 2 [place] 00 :00 (two) Medical times Branch daily as needed (for acute psychosis or aggresion) for up to 30 days. risperiDONE 2022- Yes [id number] 1mg Take 1 Univers 1 mg tablet -03 06-17 tablet by it y of 00:00: 04:59 mouth 2 [place] 00 :00 (two) Medical times Branch daily as needed (for acute psychosis or aggresion) for up to 30 days. clonazePAM 2022- No [id number] 1.5mg Take 3 [facility] 0.5 mg -03 06- tablets by ity of tablet 00:00: 00:00 mouth in [place] 00 :00 the Medical morning Branch and 3 tablets at noon and 3 tablets in the evening. divalproex 2022-2022- No [id number] 1000mg Take 2 [facility] ER 500 mg -03 06- tablets by ity of 24 hr 00:00: 00:00 mouth [place] tablet 00 :00 every Medical morning Branch and at 1200 (noon) for 180 days. divalproex 2022-2022- No [id number] 1250mg Take 5 [facility] ER 250 mg -03 06-11 tablets by ity of 24 hr 00:00: 00:00 mouth at [place] tablet 00 :00 bedtime Medical for 180 Branch days. risperiDONE 2022- No [id number] 1mg Take 1 Univers 1 mg tablet -03 06-11 tablet by it y of 00:00: 00:00 mouth 2 [place] 00 :00 (two) Medical times Branch daily as needed (for acute psychosis or aggresion) for up to 30 days. risperiDONE 2022-0 2022- No [id number] .5mg Take 1 [facility] 0.5 mg 6-16 07-11 tablet by ity of tablet 00:00: 00:00 mouth at [place] 00 :00 bedtime Medical for 180 Branch days. clonazePAM 3-0 2022- No [id number] 1.5mg Take 3 [facility] 0.5 mg 6-16 07-11 tablets by ity of tablet 00:00: 00:00 mouth in [place] 00 :00 the Medical morning Branch and 3 tablets at noon and 3 tablets in the evening. divalproex 3-0 2022- No [id number] 1000mg Take 2 [facility] ER 500 mg 6-16 07-11 tablets by ity of 24 hr 00:00: 00:00 mouth [place] tablet 00 :00 every Medical morning Branch and at 1200 (noon) for 180 days. divalproex 2022-0 2022- No [id number] 1250mg Take 5 [facility] ER 250 mg 6-16 07-11 tablets by ity of 24 hr 00:00: 00:00 mouth at [place] tablet 00 :00 bedtime Medical for 180 Branch days. risperiDONE 2022-2022- No [id number] 1mg Take 1 Univers 1 mg tablet 6-03 06-11 tablet by it y of 00:00: 00:00 mouth 2 [place] 00 :00 (two) Medical times Branch daily as needed (for acute psychosis or aggresion) for up to 30 days. risperiDONE 2022-0 2022- No [id number] .5mg Take 1 Univers 0.5 mg 6-16 07-11 tablet by ity of tablet 00:00: 00:00 mouth at [place] 00 :00 bedtime Medical for 180 Branch days. clonazePAM 3-0 2022- No [id number] 1.5mg Take 3 Univers 0.5 mg 6-16 07-11 tablets by ity of tablet 00:00: 00:00 mouth in [place] 00 :00 the Medical morning Branch and 3 tablets at noon and 3 tablets in the evening. divalproex 2023-0 2022- No [id number] 1000mg Take 2 [facility] ER 500 mg 6-16 07-11 tablets by ity of 24 hr 00:00: 00:00 mouth [place] tablet 00 :00 every Medical morning Branch and at 1200 (noon) for 180 days. divalproex 2022- No [id number] 1250mg Take 5 [facility] ER 250 mg 05-04 tablets by ity of 24 hr 00:00: 00:00 mouth at [place] tablet 00 :00 bedtime Medical for 180 Branch days. risperiDONE 2022- No [id number] 1mg Take 1 Univers 1 mg tablet 05-04 tablet by it y of 00:00: 00:00 mouth 2 [place] 00 :00 (two) Medical times Branch daily as needed (for acute psychosis or aggresion) for up to 30 days. risperiDONE 2022- No [id number] .5mg Take 1 [facility] 0.5 mg 05-04 tablet by ity of tablet 00:00: 00:00 mouth at [place] 00 :00 bedtime Medical for 180 Branch days. acetaminoph 2022- Yes [id number] 650mg Take 2 Univers en 325 mg 05-04 tablets by ity of tablet 00:00: 04:59 mouth [place] 00 :00 every 6 Medical (six) Branch hours as needed for Pain (scale 4-6) for up to 15 days. acetaminoph 2022- Yes [id number] 650mg Take 2 Univers en 325 mg -03 06- tablets by ity of tablet 00:00: 04:59 mouth [place] 00 :00 every 6 Medical (six) Branch hours as needed for Pain (scale 4-6) for up to 15 days. acetaminoph 2022- Yes [id number] 650mg Take 2 [facility] en 325 mg -03 06- tablets by ity of tablet 00:00: 04:59 mouth [place] 00 :00 every 6 Medical (six) Branch hours as needed for Pain (scale 4-6) for up to 15 days. butalbital- 2022- Yes [id number] 1{tbl} Take 1 [facility] acetaminoph -16 06-24 tablet by it y of en-caff 00:00: 04:59 mouth [place] 50-325-40 00 :00 every 6 Medical mg tablet (six) Branch hours as needed (headache) for up to 7 days. butalbital- 2022- Yes [id number] 1{tbl} Take 1 [facility] acetaminoph 6-16 06-24 tablet by it y of en-caff 00:00: 04:59 mouth [place] 50-325-40 00 :00 every 6 Medical mg tablet (six) Branch hours as needed (headache) for up to 7 days. butalbital- 2022- Yes [id number] 1{tbl} Take 1 [facility] acetaminoph 6-16 06-24 tablet by it y of en-caff 00:00: 04:59 mouth [place] 50-325-40 00 :00 every 6 Medical mg tablet (six) Branch hours as needed (headache) for up to 7 days. carBAMazepi 2022- No [id number] Take 1.5 Univers ne 200 mg 6-16 06-18 tablets by ity of tablet 00:00: 00:00 mouth [place] 00 :00 every 8 Medical (eight) Branch hours for 14 days, THEN 1 tablet every 8 (eight) hours for 14 days, THEN 1 tablet every 12 (twelve) hours for 14 days, THEN 0.5 tablets every 12 (twelve) hours for 14 days. carBAMazepi 2022- No [id number] Take 3 [facility] ne 200 mg 6-16 06-16 tablets by ity of tablet 00:00: 00:00 mouth at [place] 00 :00 bedtime Medical AND 1.5 Branch tablets every morning and at 1200 (noon). Do all this for 7 days. carBAMazepi 2022- No [id number] Take 1.5 [facility] ne 200 mg 6-16 06-16 tablets by ity of tablet 00:00: 00:00 mouth [place] 00 :00 every 8 Medical (eight) Branch hours for 14 days, THEN 1 tablet every 8 (eight) hours for 14 days, THEN 1 tablet every 12 (twelve) hours for 14 days, THEN 0.5 tablets every 12 (twelve) hours for 14 days. KCL 20 2022- No 40meq 40 mEq, Univer s mEq/15 mL 05-02 Oral, ity of solution 40 17:15: 17:15 ONCE, 1 [place] mEq 00 :00 dose, On Medical Wed Branch 05/02/23 at 1215, Routine risperiDONE 2023-0 2023- No .25mg 0.25 mg, Univers (RISPERDAL) 05-02 06-16 Oral, QHS, i ty of tablet 0.25 02:00: 19:36 First dose [place] mg 00 :03 (after Medical last Branch modificati on) on Sun05/01/23 at 2100, Until Discontinu ed, Routine butalbital- 2022-0 Yes 1{tbl} 1 tablet, [facility] [place] [facility] acetaminoph 12 Oral, ity of en-caff 16:36: Q6HPRN, [place] (ESGIC) 51 Starting Medical 50-325-40 on Mon Branch mg tablet 1 04/30/23 at tablet 1136, Until Discontinu ed, Routine, Pain (scale 4-6), Pain (scale 7-10) Lidocaine 2022-0 2022- No 1{patch 1 Patch, Univers (LIDOCARE) 04-29 } Topical, ity of 4 % patch 1 14:45: 04:39 Administer [place] Patch 00 :00 over 12 Medical Hours, Branch ONCE, 1 dose, On 04/29/23 at 0945, Routine lidocaine 2022-0 2022- No 10mL 10 mL, Unive rs 1% 04-28 Infiltrati ity of (XYLOCAINE) 17:30: 17:30 on, ONCE, [place] 10 mg/mL (1 00 :00 1 dose, On Me dical %) Sat Branch injection 04/28/23 at 10 mL 1230, Routine vitamin 2022-0 Yes 1000ug 1,000 mcg, Un luisa B-12 6-10 Oral, ity of (CYANOCOBAL 14:00: DAILY, [place]) 00 First dose Medical tablet on Sat Branch 1,000 mcg 04/28/23 at 0900, Until Discontinu ed, Routine carBAMazepi 2022-0 Yes 600mg 600 mg, Un luisa ne 6-10 Oral, QHS, ity of (TEGRETOL) 02:00: First dose [place] tablet 600 00 (after Medical mg last Branch modificati on) on Sun04/27/23 at 2100, Until Discontinu ed clonazePAM 2022-0 Yes 1.5mg 1.5 mg, Uni vers (KLONOPIN) 6-10 Oral, TID, ity of tablet 1.5 01:00: First dose [place] mg 00 (after Medical last Branch modificati on) on Sun04/27/23 at 2000, Until Discontinu ed, Routine risperiDONE 2022-0 Yes 1mg 1 mg, Unive rs (RISPERDAL) 04-27 Oral, ity of tablet 1 mg 21:54: BIDPRN, [place] 05 Starting Medical on Sun [place] 04/27/23 at 1654, Until Discontinu ed, Routine, aggresion thiamine 2022-0 Yes 100mg 100 mg, Unive rs (VITAMIN 04-27 Oral, ity of B1) tablet 14:00: DAILY, [place] 100 mg 00 First dose Medical on Sun [place] 04/27/23 at 0900, Until Discontinu ed, Routine carBAMazepi 2022-0 Yes 300mg 300 mg, Un luisa ne 04-27 Oral, QAM ity of (TEGRETOL) 14:00: + NOON, [place] tablet 300 00 First dose Med ical mg (after Branch last modificati on) on Sun04/27/23 at 0900, Until Discontinu ed, Routine zonisamide 2022-0 Yes 50mg 50 mg, Unive rs (ZONEGRAN) 04-27 Oral, BID, ity of capsule 50 13:00: First dose [place] mg 00 on Sun [facility] 04/27/23 at Branch 0800, Until Discontinu ed, Routine divalproex 2022-0 Yes 1250mg 1,250 mg, Univers ER 04-27 Oral, QHS, ity of (DEPAKOTE 02:00: First dose [place] ER) 24 hr 00 (after Medical tablet last Branch 1,250 mg modificati on) on [facility] 04/26/23 at 2100, Until Discontinu ed, Routine rosuvastati 2022-0 Yes 10mg 10 mg, Univ ers n (CRESTOR) 04-27 Oral, QHS, it y of tablet 10 02:00: First dose [place] mg 00 on [facility] 04/26/23 at Branch 2100, Until Discontinu ed, Routine carBAMazepi 2022-0 2023- No 600mg 600 mg, U nivers ne 04-27 06-09 Oral, ity of (TEGRETOL) 02:00: 11:42 QAM+HS, [place] tablet 600 00 :30 First dose Med ical mg (after Branch last modificati on) on [place] 04/26/23 at 2100, Until Discontinu ed gadoteridol 2022- No [id number] .2mL/kg 23.14 mL Univers (PROHANCE-2 04-26 (0.2 mL/kg i ty of 0 mL) 20:45: 19:38 ?115.7 [place] injection 00 :00 kg), Medical 23.14 mL Intravenou Branc h s, ONCE, 1 dose, On [facility] 04/26/23 at 1545, Routine LORazepam 2022- No 1mg 1 mg, Univer s (ATIVAN) 04-26 Oral, ity of tablet 1 mg 18:30: 18:30 ONCE, 1 [place] 00 :00 dose, On Medical [facility] 04/26/23 Branch at 1330, Routine divalproex Yes 1000mg 1,000 mg, Univers ER 04-26 Oral, QAM ity of (DEPAKOTE 17:00: + NOON, [place] ER) 24 hr 00 First dose Medi rohan tablet (after Branch 1,000 mg last modificati on) on [facility] 04/26/23 at 1200, Until Discontinu ed, Routine carBAMazepi 2022- No 300mg 300 mg, U nivers ne 04-26 Oral, ity of (TEGRETOL) 17:00: 11:42 QNOON, [place] tablet 300 00 :30 First dose Med ical mg on [facility] Branch 04/26/23 at 1200, Until Discontinu ed, Routine divalproex 2022- No 750mg 750 mg, Un luisa ER 04-26 Oral, ity of (DEPAKOTE 14:52: 16:24 ONCE, 1 [place] ER) 24 hr 00 :00 dose, On Medica l tablet 750 [facility] 04/26/23 Bra nch mg at 1000, Routine hydroCHLORO 0 Yes 25mg 25 mg, Univ ers thiazide 04-26 Oral, ity of (ESIDRIX) 14:00: DAILY, [place] tablet 25 00 First dose Medi rohan mg on [facility] Branch 04/26/23 at 0900, Until Discontinu ed, Routine pantoprazol 2023-0 Yes 40mg 40 mg, Univ ers e 04-26 Oral, ity of (PROTONIX) 14:00: DAILY, [place] EC tablet 00 First dose Medi rohan 40 mg on [facility] Branch 04/26/23 at 0900, Until Discontinu ed, Routine divalproex 2022- No 250mg 250 mg, Un luisa ER 04-26 Oral, ity of (DEPAKOTE 14:00: 14:50 DAILY, [place] ER) 24 hr 00 :57 First dose Medi rohan tablet 250 on [place] Branch mg 04/26/23 at 0900, Until Discontinu ed, Routine Sliding 2022-0 Yes Subcutaneo [facility] ers Scale 04-26 us, TID ity of Insulin - 13:00: MEALS+HS, [place] Lispro 00 First dose Medical (HumaLOG) on [facility] Branch 04/26/23 at 0800, Until Discontinu ed, Routine topiramate 0 Yes 200mg 200 mg, Uni vers (TOPAMAX) 04-26 Oral, BID, ity of tablet 200 13:00: First [place] mg 00 on [facility] 04/26/23 at Branch 0800, Until Discontinu ed, Routine
pricing/signage team member approving Restricted medication : SELVIN HANSEN V heparin Yes 5000U 5,000 [facility] (porcine) 04-26 Units, ity of injection 13:00: [place] 5,000 Units 00 us, Q12H, Med ical First dose Branch on [facility] 04/26/23 at 0800, Until Discontinu ed, Routine clonazePAM 2022- No 1mg 1 mg, Unive rs (KLONOPIN) 04-2609 Oral, TID, it y of tablet 1 mg 13:00: 19:03 First dose [place] 00 :35 on [facility] 04/26/23 at Branch 0800, Until Discontinu ed, Routine levothyroxi 2022-0 Yes 75ug 75 mcg, Uni vers ne 04-26 Oral, ity of (SYNTHROID) 11:00: QAM-0600, [place] tablet 75 00 First dose Medi rohan mcg on [facility] Branch 04/26/23 at 0600, Until Discontinu ed, Routine carBAMazepi 2022- No 300mg 300 mg, U nivers ne 04-26-08 Oral, ity of (TEGRETOL) 08:45: 14:50 Q12H, [place] tablet 300 00 :57 First dose Med ical mg on [place] Branch 04/26/23 at 0345, Until Discontinu ed glucagon 2022-0 Yes 1mg 1 mg, Univers (GLUCAGEN 04-26 Intramuscu ity of DIAGNOSTIC 08:33: lar, PRN, [place] KIT) 22 Starting Medical injection 1 on [place] Branch mg 04/26/23 at 0333, Until Discontinu ed, EVELYNE, Blood Glucose < or = 70 mg/dL and patient is NPO, unable to swallow or has mental changes. dextrose 50 0 Yes 25mL 25 mL, Univ ers % in water 04-26 Slow IV ity of (D50W) 08:33: Push, PRN, [place] injection 22 Starting Medica l 25 mL on [place] [facility] 04/26/23 at 0333, Until Discontinu ed, EVELYNE, Blood Glucose < or = 70 mg/dL and patient is NPO, unable to swallow or has mental status changes. acetaminoph Yes 650mg 650 mg, Un luisa en 08 Oral, ity of (TYLENOL) 06:08: Q6HPRN, [place] tablet 650 42 Starting Medic al mg on [place] Branch 04/26/23 at 0108, Until Discontinu ed, Routine, Pain (scale 4-6) docusate Yes 100mg 100 mg, Unive rs (COLACE) 04-26 Oral, ity of capsule 100 06:08: QDAILYPRN, [place] mg 42 Starting Medical on [place] Branch 04/26/23 at 0108, Until Discontinu ed, Routine, Constipati on NaCl 0.9% 2022- No 1000mL at 999 Uni vers (NS) bolus 04-26-08 mL/hr, ity of infusion 00:15: 02:30 1,000 mL, [place] 1,000 mL 00 :00 IV Medical Infusion, Branch ONCE, 1 dose, On Sun04/25/23 at 1915, EVELYNE DEPAKOTE ER Yes [id number] TAKE 4 Univers 250 mg 24 6-03 TABLETS BY ity of hr tablet 00:00: MOUTH [place] 00 EVERY Medical MORNING, 4 Branch TABLETS AT NOON, AND 5 TABLETS IN EVENING DEPAKOTE ER 2022-2022- No [id number] TAKE 4 Univers 250 mg 24 6-03 06-16 TABLETS BY ity of hr tablet 00:00: 00:00 MOUTH [place] 00 :00 EVERY Medical MORNING, 4 Branch TABLETS AT NOON, AND 5 TABLETS IN EVENING magnesium 2022-0 2022- No 2g 2 g, IV Univ ers sulfate in 04-15 Piggyback, it y of water 2 04:45: 04:56 Administer [place] gram/50 mL 00 :00 over 60 Medica l (4 %) Minutes, Branch infusion 2 ONCE, 1 g dose, On 04/14/23 at 2345, EVELYNE PHENOBARBIT 2022-0 Yes [id number] 64.8mg Take 1 Univers AL 64.8 mg 5-12 tablet by ity of tablet 00:00: mouth in [place] 00 the Medical morning. Branch PHENOBARBIT 2022-0 Yes [id number] 64.8mg Take 1 Univers AL 64.8 mg 5-12 tablet by ity of tablet 00:00: mouth in [place] 00 the Medical morning. Branch PHENOBARBIT 2022-0 Yes [id number] 64.8mg Take 1 Univers AL 64.8 mg 5-12 tablet by ity of tablet 00:00: mouth in [place] 00 the Medical morning. Branch PHENOBARBIT 2022-0 2022- No [id number] 64.8mg Take 1 Univers AL 64.8 mg 5-12 -16 tablet by ity of tablet 00:00: 00:00 mouth in [place] 00 :00 the Medical morning. Branch acetaminoph 2022-0 Yes 500mg Take 1 Uni vers en (TYLENOL 4-18 tablet by ity of EXTRA 11:26: mouth [place] STRENGTH) 32 every 6 Medical 500 mg (six) Branch tablet hours as needed for Pain. hydroCHLORO 3-0 Yes 25mg Take 1 Univ ers thiazide 25 4-18 tablet by ity of mg tablet 11:26: [facility]. Branch metFORMIN 2022-0 Yes 1000mg Take 1 Univ ers 1,000 mg 4-18 tablet by ity of tablet 11:26: mouth in [place] [address] the Medical morning Branch and 1 tablet in the evening. Take with meals. acetaminoph 2023-0 Yes 500mg Take 1 Uni vers en (TYLENOL 4-18 tablet by ity of EXTRA 11:26: mouth [place] STRENGTH) 32 every 6 Medical 500 mg (six) Branch tablet hours as needed for Pain. hydroCHLORO 2023-0 Yes 25mg Take 1 Univ ers thiazide 25 4-18 tablet by ity of mg tablet 11:26: mouth in [place] [address] the Medical morning. Branch metFORMIN 2023-0 Yes 1000mg Take 1 Univ ers 1,000 mg 4-18 tablet by ity of tablet 11:26: mouth in [place] [address] the Medical morning Branch and 1 tablet in the evening. Take with meals. acetaminoph 2023-0 Yes 500mg Take 1 Uni vers en (TYLENOL 4-18 tablet by ity of EXTRA 11:26: mouth [place] STRENGTH) 32 every 6 Medical 500 mg (six) Branch tablet hours as needed for Pain. hydroCHLORO 2023-0 Yes 25mg Take 1 Univ ers thiazide 25 4-18 tablet by ity of mg tablet 11:26: mouth in [place] [address] the Medical morning. Branch metFORMIN 2023-0 Yes 1000mg Take 1 Univ ers 1,000 mg 4-18 tablet by ity of tablet 11:26: mouth in [place] [address] the Medical morning Branch and 1 tablet in the evening. Take with meals. acetaminoph 2023-0 Yes 500mg Take 1 Uni vers en (TYLENOL 4-18 tablet by ity of EXTRA 11:26: mouth [place] STRENGTH) 32 every 6 Medical 500 mg (six) Branch tablet hours as needed for Pain. hydroCHLORO 2023-0 Yes 25mg Take 1 Univ ers thiazide 25 4-18 tablet by ity of mg tablet 11:26: mouth in [place] [address] the Medical morning. Branch metFORMIN 2023-0 Yes 1000mg Take 1 Univ ers 1,000 mg 4-18 tablet by ity of tablet 11:26: mouth in [place] [address] the Medical morning Branch and 1 tablet in the evening. Take with meals. acetaminoph 2023-0 Yes 500mg Take 1 Uni vers en (TYLENOL 4-18 tablet by ity of EXTRA 11:26: mouth [place] STRENGTH) 32 every 6 Medical 500 mg (six) Branch tablet hours as needed for Pain. hydroCHLORO 2023-0 Yes 25mg Take 1 Univ ers thiazide 25 4-18 tablet by ity of mg tablet 11:26: mouth in [place] [address] the Medical morning. Branch metFORMIN 0 Yes 1000mg Take 1 Univ ers 1,000 mg 4-18 tablet by ity of tablet 11:26: mouth in [place] [address] the Medical morning Branch and 1 tablet in the evening. Take with meals. topiramate 0 Yes [id number] TAKE 1 Univers (TOPAMAX) 4-18 TABLET BY ity o f 200 mg 00:00: MOUTH [place] tablet 00 TWICE A Medical DAY...[facility] INSURANCE topiramate Yes [id number] TAKE 1 Univers (TOPAMAX) 4-18 TABLET BY ity o f 200 mg 00:00: MOUTH [place] tablet 00 TWICE A Medical DAY...[facility] INSURANCE topiramate Yes [id number] TAKE 1 Univers (TOPAMAX) 4-18 TABLET BY ity o f 200 mg 00:00: MOUTH [place] tablet 00 TWICE A Medical DAY...NEED [facility] NEW INSURANCE topiramate Yes [id number] TAKE 1 Univers (TOPAMAX) 4-18 TABLET BY ity o f 200 mg 00:00: MOUTH [place] tablet 00 TWICE A Medical DAY...[facility] NEW INSURANCE carBAMazepi 0 Yes [id number] TAKE 2 Univers ne 300 mg 4-18 CAPSULES ity of 12 hr 00:00: BY MOUTH [place] capsule 00 TWICE A Medical DAY Branch divalproex 2022-0 Yes [id number] TAKE 4 Univers ER 4-18 TABLETS BY ity of (DEPAKOTE 00:00: MOUTH [place] ER) 250 mg 00 EVERY Medical 24 hr MORNING, 4 Branch tablet TABLETS AT NOON, AND 5 TABLETS IN EVENINGTAK E 4 TABLETS BY MOUTH EVERY MORNING, 4 TABLETS AT NOON, AND 5 TABLETS IN EVENING topiramate 2022-0 Yes [id number] TAKE 1 Univers (TOPAMAX) 4-18 TABLET BY ity o f 200 mg 00:00: MOUTH [place] tablet 00 TWICE A Medical DAY...[facility] INSURANCE carBAMazepi 2022-0 Yes [id number] TAKE 2 Univers ne 300 mg 4-18 CAPSULES ity of 12 hr 00:00: BY MOUTH [place] capsule 00 TWICE A Medical DAY Branch divalproex 2023-0 Yes [id number] TAKE 4 Univers ER 4-18 TABLETS BY ity of (DEPAKOTE 00:00: MOUTH [place] ER) 250 mg 00 EVERY Medical 24 hr MORNING, 4 Branch tablet TABLETS AT NOON, AND 5 TABLETS IN EVENINGTAK E 4 TABLETS BY MOUTH EVERY MORNING, 4 TABLETS AT NOON, AND 5 TABLETS IN EVENING topiramate 0 Yes [id number] TAKE 1 Univers (TOPAMAX) 4-18 TABLET BY ity o f 200 mg 00:00: MOUTH [place] tablet 00 TWICE A Medical DAY...[facility] NEW INSURANCE carBAMazepi Yes [id number] TAKE 2 Univers ne 300 mg 4-18 CAPSULES ity of 12 hr 00:00: BY MOUTH [place] capsule 00 TWICE A Medical DAY Branch divalproex Yes [id number] TAKE 4 Univers ER 4-18 TABLETS BY ity of (DEPAKOTE 00:00: MOUTH [place] ER) 250 mg 00 EVERY Medical 24 hr MORNING, 4 Branch tablet TABLETS AT NOON, AND 5 TABLETS IN EVENINGTAK E 4 TABLETS BY MOUTH EVERY MORNING, 4 TABLETS AT NOON, AND 5 TABLETS IN EVENING topiramate Yes [id number] TAKE 1 Univers (TOPAMAX) 4-18 TABLET BY ity o f 200 mg 00:00: MOUTH [place] tablet 00 TWICE A Medical DAY...[facility] NEW INSURANCE carBAMazepi Yes [id number] TAKE 2 Univers ne 300 mg 4-18 CAPSULES ity of 12 hr 00:00: BY MOUTH [place] capsule 00 TWICE A Medical DAY Branch divalproex Yes [id number] TAKE 4 Univers ER 4-18 TABLETS BY ity of (DEPAKOTE 00:00: MOUTH [place] ER) 250 mg 00 EVERY Medical 24 hr MORNING, 4 Branch tablet TABLETS AT NOON, AND 5 TABLETS IN EVENINGTAK E 4 TABLETS BY MOUTH EVERY MORNING, 4 TABLETS AT NOON, AND 5 TABLETS IN EVENING topiramate Yes [id number] TAKE 1 Univers (TOPAMAX) 4-18 TABLET BY ity o f 200 mg 00:00: MOUTH [place] tablet 00 TWICE A Medical DAY...[facility] NEW INSURANCE carBAMazepi Yes [id number] TAKE 2 Univers ne 300 mg 4-18 CAPSULES ity of 12 hr 00:00: BY MOUTH [place] capsule 00 TWICE A Medical DAY [facility] topiramate Yes [id number] TAKE 1 Univers (TOPAMAX) 4-18 TABLET BY ity o f 200 mg 00:00: MOUTH [place] tablet 00 TWICE A Medical DAY...[facility] INSURANCE topiramate Yes [id number] TAKE 1 Univers (TOPAMAX) 4-18 TABLET BY ity o f 200 mg 00:00: MOUTH [place] tablet 00 TWICE A Medical DAY...[facility] INSURANCE topiramate 2022- No [id number] TAKE 1 Univers (TOPAMAX) 4-18 07-11 TABLET BY ity of 200 mg 00:00: 00:00 MOUTH [place] tablet 00 :00 TWICE A Medical DAY...[facility] topiramate 2022- No [id number] TAKE 1 Univers (TOPAMAX) 4-18 07-11 TABLET BY ity of 200 mg 00:00: 00:00 MOUTH [place] tablet 00 :00 TWICE A Medical DAY...[facility] topiramate 2022- No [id number] TAKE 1 Univers (TOPAMAX) 4-18 07-11 TABLET BY ity of 200 mg 00:00: 00:00 MOUTH [place] tablet 00 :00 TWICE A Medical DAY...[facility] carBAMazepi 2022- No [id number] TAKE 2 Univers ne 300 mg 4-18 06-16 CAPSULES ity o f 12 hr 00:00: 00:00 BY MOUTH [place] capsule 00 :00 TWICE A Medical DAY [place] divalproex 2022- No [id number] TAKE 4 Univers ER 4-18 06-03 TABLETS BY ity of (DEPAKOTE 00:00: 00:00 MOUTH [place] ER) 250 mg 00 :00 EVERY Medical 24 hr MORNING, 4 Branch tablet TABLETS AT NOON, AND 5 TABLETS IN EVENINGTAK E 4 TABLETS BY MOUTH EVERY MORNING, 4 TABLETS AT NOON, AND 5 TABLETS IN EVENING divalproex 2022- No [id number] TAKE 4 Univers ER 4-18 04-18 TABLETS BY ity of (DEPAKOTE 00:00: 00:00 MOUTH [place] ER) 250 mg 00 :00 EVERY Medical 24 hr MORNING, 4 Branch tablet TABLETS AT NOON, AND 5 TABLETS IN EVENINGTAK E 4 TABLETS BY MOUTH EVERY MORNING, 4 TABLETS AT NOON, AND 5 TABLETS IN EVENING carBAMazepi 2022- No [id number] TAKE 2 Univers ne 300 mg 4-18 04-18 CAPSULES ity o f 12 hr 00:00: 00:00 BY MOUTH [place] capsule 00 :00 TWICE A Medical DAY Branch topiramate 2022- No [id number] TAKE 1 Univers (TOPAMAX) 4-18 -18 TABLET BY ity of 200 mg 00:00: 00:00 MOUTH [place] tablet 00 :00 TWICE A Medical DAY...NEED [facility] NEW INSURANCE divalproex 2022- No [id number] TAKE 4 Univers ER 4-18 -18 TABLETS BY ity of (DEPAKOTE 00:00: 00:00 MOUTH [place] ER) 250 mg 00 :00 EVERY Medical 24 hr MORNING, 4 Branch tablet TABLETS AT NOON, AND 5 TABLETS IN EVENINGTAK E 4 TABLETS BY MOUTH EVERY MORNING, 4 TABLETS AT NOON, AND 5 TABLETS IN EVENING carBAMazepi 2022- No [id number] TAKE 2 Univers ne 300 mg -18 -18 CAPSULES ity o f 12 hr 00:00: 00:00 BY MOUTH [place] capsule 00 :00 TWICE A Medical DAY Branch topiramate 2022- No [id number] TAKE 1 Univers (TOPAMAX) 4-18 -18 TABLET BY ity of 200 mg 00:00: 00:00 MOUTH [place] tablet 00 :00 TWICE A Medical DAY...NEED [facility] NEW INSURANCE divalproex 2022- No 1000mg 1,000 mg, Univers ER 02-21 Oral, ity of (DEPAKOTE 16:00: 15:37 ONCE, 1 [place] ER) 24 hr 00 :00 dose, On Medica l tablet 02/21/23 Branch 1,000 mg at 1100, Routine PHENobarbit 2022- No 64.8mg 64.8 mg, Univers aL tablet 02-21 Oral, ity of 64.8 mg 15:45: 15:36 ONCE, 1 [place] 00 :00 dose, On Medical 02/21/23 Branch at 1045, Routine carBAMazepi 2022- No 400mg 400 mg, U nivers ne 4-05 04-05 Oral, ity of (TEGRETOL) 15:30: 15:35 ONCE, 1 [place] tablet 400 00 :00 dose, On Medic al mg 02/21/23 Branch at 1030, Routine
pricing/signage team member approving Non-formul aliyah medication : Maren OWENS
[place] geronimo for non-formul aliyah use: PATIENT CURRENTLY TAKING NONFORMULA RY PRODUCT carBAMazepi Yes [id number] TAKE 2 [facility] ne 300 mg 4-05 CAPSULES ity of 12 hr 00:00: BY MOUTH [place] capsule 00 TWICE A Medical DAY Branch divalproex Yes [id number] TAKE 4 Univers ER 4-05 TABLETS BY ity of (DEPAKOTE 00:00: MOUTH [place] ER) 250 mg 00 EVERY Medical 24 hr MORNING, 4 Branch tablet TABLETS AT NOON, AND 5 TABLETS IN EVENINGTAK E 4 TABLETS BY MOUTH EVERY MORNING, 4 TABLETS AT NOON, AND 5 TABLETS IN EVENING carBAMazepi 2022- No [id number] TAKE 2 Univers ne 300 mg 4-05 04-18 CAPSULES ity o f 12 hr 00:00: 00:00 BY MOUTH [place] capsule 00 :00 TWICE A Medical DAY Branch divalproex 2022- No [id number] TAKE 4 Univers ER 4-05 04-18 TABLETS BY ity of (DEPAKOTE 00:00: 00:00 MOUTH [place] ER) 250 mg 00 :00 EVERY Medical 24 hr MORNING, 4 Branch tablet TABLETS AT NOON, AND 5 TABLETS IN EVENINGTAK E 4 TABLETS BY MOUTH EVERY MORNING, 4 TABLETS AT NOON, AND 5 TABLETS IN EVENING carBAMazepi 2022- No [id number] TAKE 2 Univers ne 300 mg 4-05 04-18 CAPSULES ity o f 12 hr 00:00: 00:00 BY MOUTH [place] capsule 00 :00 TWICE A Medical DAY Branch divalproex 2022- No [id number] TAKE 4 Univers ER 4-05 04-18 TABLETS BY ity of (DEPAKOTE 00:00: 00:00 MOUTH [place] ER) 250 mg 00 :00 EVERY Medical 24 hr MORNING, 4 Branch tablet TABLETS AT NOON, AND 5 TABLETS IN EVENINGTAK E 4 TABLETS BY MOUTH EVERY MORNING, 4 TABLETS AT NOON, AND 5 TABLETS IN EVENING PHENobarbit 2022-0 2022- No 64.8mg Take 1 U nivers aL 64.8 mg 3-12 05-12 tablet by ity of tablet 00:00: 00:00 mouth in [place] 00 :00 the Medical morning. Branch CARBAMAZEPI 2022-0 Yes [id number] TAKE 2 Univers NE 300 mg 1-25 CAPSULES ity of 12 hr 00:00: BY MOUTH [place] capsule 00 TWICE A Medical DAY Branch CARBAMAZEPI 2022-0 Yes [id number] TAKE 2 [facility] [place] 300 mg 1-25 CAPSULES ity of 12 hr 00:00: BY MOUTH [place] capsule 00 TWICE A Medical DAY Branch CARBAMAZEPI 2022-0 Yes [id number] TAKE 2 [facility] [place] 300 mg 1-25 CAPSULES ity of 12 hr 00:00: BY MOUTH [place] capsule 00 TWICE A Medical DAY Branch CARBAMAZEPI 2022-0 2022- No [id number] TAKE 2 Univers [place] 300 mg 1-25 04-05 CAPSULES ity o f 12 hr 00:00: 00:00 BY MOUTH [place] capsule 00 :00 TWICE A Medical DAY Branch PHENobarbit 2022-0 Yes [id number] 64.8mg Take 1 Univers aL 64.8 mg 1-09 tablet by ity of tablet 00:00: mouth in [place] 00 the Medical morning. Branch topiramate 2022-0 Yes [id number] TAKE 1 Un luisa (TOPAMAX) 1-09 TABLET BY ity o f 200 mg 00:00: MOUTH [place] tablet 00 TWICE A Medical DAY...NEED [facility] NEW INSURANCE clonazePAM 2022-0 Yes [id number] 1mg Take 1 Univers 1 mg tablet 1-09 tablet by ity of 00:00: mouth in [place] 00 the Medical morning Branch and 1 tablet at noon and 1 tablet in the evening. divalproex 2022-0 Yes [id number] TAKE 4 Univers ER 1-09 TABLETS BY ity of (DEPAKOTE 00:00: MOUTH [place] ER) 250 mg 00 EVERY Medical 24 hr MORNING, 4 Branch tablet TABLETS AT NOON, AND 5 TABLETS IN EVENING PHENobarbit 2022-0 Yes [id number] 64.8mg Take 1 Univers aL 64.8 mg 1-09 tablet by ity of tablet 00:00: mouth in [place] 00 the Medical morning. Branch topiramate 2022-0 Yes [id number] TAKE 1 Un luisa (TOPAMAX) 1-09 TABLET BY ity o f 200 mg 00:00: MOUTH [place] tablet 00 TWICE A Medical DAY...[facility] NEW INSURANCE clonazePAM 2022-0 Yes [id number] 1mg Take 1 Univers 1 mg tablet 1-09 tablet by ity of 00:00: mouth in [place] 00 the Medical morning Branch and 1 tablet at noon and 1 tablet in the evening. divalproex 2022-0 Yes [id number] TAKE 4 Univers ER 1-09 TABLETS BY ity of (DEPAKOTE 00:00: MOUTH [place] ER) 250 mg 00 EVERY Medical 24 hr MORNING, 4 Branch tablet TABLETS AT NOON, AND 5 TABLETS IN EVENING PHENobarbit 202-0 Yes [id number] 64.8mg Take 1 Univers aL 64.8 mg 1-09 tablet by ity of tablet 00:00: mouth in [place] 00 the Medical morning. Branch topiramate 2022- Yes TAKE 1 Unive rs (TOPAMAX) 1-09 TABLET BY ity o f 200 mg 00:00: MOUTH [place] tablet 00 TWICE A Medical DAY...[facility] NEW INSURANCE clonazePAM 2022-0 Yes [id number] 1mg Take 1 Univers 1 mg tablet 1-09 tablet by ity of 00:00: mouth in [place] 00 the Medical morning Branch and 1 tablet at noon and 1 tablet in the evening. divalproex 2022-0 Yes [id number] TAKE 4 Univers ER 1-09 TABLETS BY ity of (DEPAKOTE 00:00: MOUTH [place] ER) 250 mg 00 EVERY Medical 24 hr MORNING, 4 Branch tablet TABLETS AT NOON, AND 5 TABLETS IN EVENING PHENobarbit 202-0 Yes [id number] 64.8mg Take 1 Univers aL 64.8 mg 1-09 tablet by ity of tablet 00:00: mouth in [place] 00 the Medical morning. Branch topiramate 2022-0 Yes TAKE 1 Unive rs (TOPAMAX) 1-09 TABLET BY ity o f 200 mg 00:00: MOUTH [place] tablet 00 TWICE A Medical DAY...[facility] NEW INSURANCE clonazePAM 2022-0 Yes [id number] 1mg Take 1 Univers 1 mg tablet 1-09 tablet by ity of 00:00: mouth in [place] 00 the Medical morning Branch and 1 tablet at noon and 1 tablet in the evening. divalproex 2023-0 Yes [id number] TAKE 4 Univers ER 1-09 TABLETS BY ity of (DEPAKOTE 00:00: MOUTH [place] ER) 250 mg 00 EVERY Medical 24 hr MORNING, 4 Branch tablet TABLETS AT NOON, AND 5 TABLETS IN EVENING PHENobarbit 2023-0 Yes [id number] 64.8mg Take 1 Univers aL 64.8 mg 1-09 tablet by ity of tablet 00:00: mouth in [place] 00 the Medical morning. Branch topiramate 2022-0 Yes TAKE 1 Unive rs (TOPAMAX) 1-09 TABLET BY ity o f 200 mg 00:00: MOUTH [place] tablet 00 TWICE A Medical DAY...NEED [facility] NEW INSURANCE clonazePAM 2022-0 Yes [id number] 1mg Take 1 Univers 1 mg tablet 1-09 tablet by ity of 00:00: mouth in [place] 00 the Medical morning Branch and 1 tablet at noon and 1 tablet in the evening. divalproex 2022-0 Yes [id number] TAKE 4 Univers ER 1-09 TABLETS BY ity of (DEPAKOTE 00:00: MOUTH [place] ER) 250 mg 00 EVERY Medical 24 hr MORNING, 4 Branch tablet TABLETS AT NOON, AND 5 TABLETS IN EVENING PHENobarbit 3-0 Yes [id number] 64.8mg Take 1 Univers aL 64.8 mg 1-09 tablet by ity of tablet 00:00: mouth in [place] 00 the Medical morning. Branch topiramate 2022-0 Yes TAKE 1 Unive rs (TOPAMAX) 1-09 TABLET BY ity o f 200 mg 00:00: MOUTH [place] tablet 00 TWICE A Medical DAY...NEED [facility] NEW INSURANCE clonazePAM 3-0 Yes [id number] 1mg Take 1 Univers 1 mg tablet 1-09 tablet by ity of 00:00: mouth in [place] 00 the Medical morning Branch and 1 tablet at noon and 1 tablet in the evening. divalproex 2023-0 Yes [id number] TAKE 4 Univers ER 1-09 TABLETS BY ity of (DEPAKOTE 00:00: MOUTH [place] ER) 250 mg 00 EVERY Medical 24 hr MORNING, 4 Branch tablet TABLETS AT NOON, AND 5 TABLETS IN EVENING PHENobarbit 2023-0 Yes [id number] 64.8mg Take 1 Univers aL 64.8 mg 1-09 tablet by ity of tablet 00:00: mouth in [place] 00 the Medical morning. Branch topiramate Yes TAKE 1 Unive rs (TOPAMAX) 1-09 TABLET BY ity o f 200 mg 00:00: MOUTH [place] tablet 00 TWICE A Medical DAY...NEED [facility] NEW INSURANCE clonazePAM 2022-0 Yes [id number] 1mg Take 1 Univers 1 mg tablet 1-09 tablet by ity of 00:00: mouth in [place] 00 the Medical morning Branch and 1 tablet at noon and 1 tablet in the evening. divalproex 2022-0 Yes [id number] TAKE 4 Univers ER 1-09 TABLETS BY ity of (DEPAKOTE 00:00: MOUTH [place] ER) 250 mg 00 EVERY Medical 24 hr MORNING, 4 Branch tablet TABLETS AT NOON, AND 5 TABLETS IN EVENING PHENobarbit 2022-0 Yes [id number] 64.8mg Take 1 Univers aL 64.8 mg -09 tablet by ity of tablet 00:00: mouth in [place] 00 the Medical morning. Branch topiramate 0 Yes TAKE 1 Unive rs (TOPAMAX) 1-09 TABLET BY ity o f 200 mg 00:00: MOUTH [place] tablet 00 TWICE A Medical DAY...NEED [facility] NEW INSURANCE clonazePAM 2022-0 Yes [id number] 1mg Take 1 Univers 1 mg tablet -09 tablet by ity of 00:00: mouth in [place] 00 the Medical morning Branch and 1 tablet at noon and 1 tablet in the evening. PHENobarbit 2022-0 2022- No [id number] 64.8mg Take 1 Univers aL 64.8 mg 11-27 tablet by ity of tablet 00:00: 00:00 mouth in [place] 00 :00 the Medical morning. Branch topiramate 2022-0 2022- No TAKE 1 Univ ers (TOPAMAX) 11-27- TABLET BY ity of 200 mg 00:00: 00:00 MOUTH [place] tablet 00 :00 TWICE A Medical DAY...NEED [facility] [employer] INSURANCE clonazePAM 2022-0 2022- No [id number] 1mg Take 1 Univers 1 mg tablet 11-27 tablet by it y of 00:00: 00:00 mouth in [place] 00 :00 the Medical morning Branch and 1 tablet at noon and 1 tablet in the evening. PHENobarbit No [id number] 64.8mg Take 1 Univers aL 64.8 mg 11-27 tablet by ity of tablet 00:00: 00:00 mouth in [place] 00 :00 the Medical morning. Branch topiramate 2022- No TAKE 1 Univ ers (TOPAMAX) 11-27 TABLET BY ity of 200 mg 00:00: 00:00 MOUTH [place] tablet 00 :00 TWICE A Medical DAY...NEED Branch NEW INSURANCE clonazePAM 2022- No [id number] 1mg Take 1 Univers 1 mg tablet 11-27 tablet by it y of 00:00: 00:00 mouth in [place] 00 :00 the Medical morning Branch and 1 tablet at noon and 1 tablet in the evening. divalproex 2022- No [id number] TAKE 4 Univers ER 11-2705 TABLETS BY ity of (DEPAKOTE 00:00: 00:00 MOUTH [place] ER) 250 mg 00 :00 EVERY Medical 24 hr MORNING, 4 Branch tablet TABLETS AT NOON, AND 5 TABLETS IN EVENING CLONAZEPAM 2021- Yes [id number] TAKE 1 Univers 1 mg tablet 1-08 TABLET BY ity of 00:00: MOUTH [place] 00 THREE Medical TIMES A Branch DAY CLONAZEPAM 2021- Yes [id number] TAKE 1 Univers 1 mg tablet 1-08 TABLET BY ity of 00:00: MOUTH [place] 00 THREE Medical TIMES A Branch DAY CLONAZEPAM 2021- Yes [id number] TAKE 1 Univers 1 mg tablet 1-08 TABLET BY ity of 00:00: MOUTH [place] 00 THREE Medical TIMES A Branch DAY CLONAZEPAM 2021- Yes [id number] TAKE 1 Univers 1 mg tablet 1-08 TABLET BY ity of 00:00: MOUTH [place] 00 THREE Medical TIMES A Branch DAY CLONAZEPAM 2021-2022- No [id number] TAKE 1 Univers 1 mg tablet 11-26- TABLET BY it y of 00:00: 00:00 MOUTH [place] 00 :00 THREE Medical TIMES A Branch DAY CLONAZEPAM 2021-2022- No [id number] TAKE 1 Univers 1 mg tablet 11-26- TABLET BY it y of 00:00: 00:00 MOUTH [place] 00 :00 THREE Medical TIMES A Branch DAY TOPAMAX 200 2021-11 Yes [id number] TAKE 1 U nivers mg tablet 0-04 TABLET BY ity o f 00:00: MOUTH [place] 00 TWICE A Medical DAY...NEED [facility] [employer] INSURANCE TOPAMAX 200 2021-11 Yes [id number] TAKE 1 U nivers mg tablet 0-04 TABLET BY ity o f 00:00: MOUTH [place] 00 TWICE A Medical DAY...NEED [facility] [employer] INSURANCE TOPAMAX 200 2021-11 Yes [id number] TAKE 1 U nivers mg tablet 0-04 TABLET BY ity o f 00:00: MOUTH [place] 00 TWICE A Medical DAY...NEED [facility] [employer] INSURANCE TOPAMAX 200 2021-11 Yes [id number] TAKE 1 U nivers mg tablet 0-04 TABLET BY ity o f 00:00: MOUTH [place] 00 TWICE A Medical DAY...NEED [facility] [employer] INSURANCE TOPAMAX 200 2021-11 Yes [id number] TAKE 1 U nivers mg tablet 0-04 TABLET BY ity o f 00:00: MOUTH [place] 00 TWICE A Medical DAY...NEED [facility] [employer] INSURANCE TOPAMAX 200 2021-11 Yes [id number] TAKE 1 U nivers mg tablet 0-04 TABLET BY ity o f 00:00: MOUTH [place] 00 TWICE A Medical DAY...NEED [facility] [employer] INSURANCE TOPAMAX 200 2021-11 Yes [id number] TAKE 1 U nivers mg tablet 0-04 TABLET BY ity o f 00:00: MOUTH [place] 00 TWICE A Medical DAY...NEED [facility] [employer] INSURANCE TOPAMAX 200 2021-11 Yes [id number] TAKE 1 U nivers mg tablet 0-04 TABLET BY ity o f 00:00: MOUTH [place] 00 TWICE A Medical DAY...NEED [facility] [employer] INSURANCE TOPAMAX 200 2021-11- No [id number] TAKE 1 Univers mg tablet 0-04 01-09 TABLET BY ity of 00:00: 00:00 MOUTH [place] 00 :00 TWICE A Medical DAY...NEED [facility] [employer] INSURANCE TOPAMAX 200 2021-11- No [id number] TAKE 1 Univers mg tablet 0-04 01-09 TABLET BY ity of 00:00: 00:00 MOUTH [place] 00 :00 TWICE A Medical DAY...NEED [facility] NEW INSURANCE DEPAKOTE ER Yes [id number] TAKE 4 Univers 250 mg 24 8-08 TABLETS BY ity of hr tablet 00:00: MOUTH [place] 00 EVERY Medical MORNING, 4 Branch TABLETS AT NOON, AND 5 TABLETS IN EVENING DEPAKOTE ER 2021-0 Yes [id number] TAKE 4 [facility] 250 mg 24 8-08 TABLETS BY ity of hr tablet 00:00: MOUTH [place] 00 EVERY Medical MORNING, 4 Branch TABLETS AT NOON, AND 5 TABLETS IN EVENING DEPAKOTE ER 0 Yes [id number] TAKE 4 [facility] 250 mg 24 8-08 TABLETS BY ity of hr tablet 00:00: MOUTH [place] 00 EVERY Medical MORNING, 4 Branch TABLETS AT NOON, AND 5 TABLETS IN EVENING DEPAKOTE ER 0 Yes [id number] TAKE 4 [facility] 250 mg 24 8-08 TABLETS BY ity of hr tablet 00:00: MOUTH [place] 00 EVERY Medical MORNING, 4 Branch TABLETS AT NOON, AND 5 TABLETS IN EVENING DEPAKOTE ER Yes [id number] TAKE 4 [facility] 250 mg 24 8-08 TABLETS BY ity of hr tablet 00:00: MOUTH [place] 00 EVERY Medical MORNING, 4 Branch TABLETS AT NOON, AND 5 TABLETS IN EVENING DEPAKOTE ER 0 Yes [id number] TAKE 4 [facility] 250 mg 24 8-08 TABLETS BY ity of hr tablet 00:00: MOUTH [place] 00 EVERY Medical MORNING, 4 Branch TABLETS AT NOON, AND 5 TABLETS IN EVENING DEPAKOTE ER 0 Yes [id number] TAKE 4 [facility] 250 mg 24 8-08 TABLETS BY ity of hr tablet 00:00: MOUTH [place] 00 EVERY Medical MORNING, 4 Branch TABLETS AT NOON, AND 5 TABLETS IN EVENING DEPAKOTE ER 0 Yes [id number] TAKE 4 [facility] 250 mg 24 8-08 TABLETS BY ity of hr tablet 00:00: MOUTH [place] 00 EVERY Medical MORNING, 4 Branch TABLETS AT NOON, AND 5 TABLETS IN EVENING DEPAKOTE ER 0 Yes [id number] TAKE 4 [facility] 250 mg 24 8-08 TABLETS BY ity of hr tablet 00:00: MOUTH [place] 00 EVERY Medical MORNING, 4 Branch TABLETS AT NOON, AND 5 TABLETS IN EVENING DEPAKOTE ER 2021-0 2023- No [id number] TAKE 4 [facility] 250 mg 24 8-08 01-09 TABLETS BY ity of hr tablet 00:00: 00:00 MOUTH [place] 00 :00 EVERY Medical MORNING, 4 Branch TABLETS AT NOON, AND 5 TABLETS IN EVENING DEPAKOTE ER 2-0 2023- No [id number] TAKE 4 [facility] 250 mg 24 8-08 -09 TABLETS BY ity of hr tablet 00:00: 00:00 MOUTH [place] 00 :00 EVERY Medical MORNING, 4 Branch TABLETS AT NOON, AND 5 TABLETS IN EVENING clonazePAM 2021-0 Yes [id number] 1mg Take 1 [facility] 1 mg tablet 7-08 tablet by ity of 00:00: mouth 3 [place] 00 (three) Medical times Branch daily. divalproex 2021-0 Yes [id number] TAKE 4 [facility] ER 250 mg 7-08 TABLETS BY ity of 24 hr 00:00: MOUTH [place] tablet 00 EVERY Medical MORNING, 4 Branch TABLETS AT NOON, AND 5 TABLETS IN EVENING PHENobarbit 2021-0 Yes [id number] 64.8mg Take 1 [facility] aL 64.8 mg 7-08 tablet by ity of tablet 00:00: mouth [place] 00 daily. Medical Branch clonazePAM 2021-0 Yes [id number] 1mg Take 1 [facility] 1 mg tablet 7-08 tablet by ity of 00:00: mouth 3 [place] 00 (three) Medical times Branch daily. divalproex 2021-0 Yes [id number] TAKE 4 [facility] ER 250 mg 7-08 TABLETS BY ity of 24 hr 00:00: MOUTH [place] tablet 00 EVERY Medical MORNING, 4 Branch TABLETS AT NOON, AND 5 TABLETS IN EVENING PHENobarbit 2021-0 Yes [id number] 64.8mg Take 1 [facility] aL 64.8 mg 7-08 tablet by ity of tablet 00:00: mouth [place] 00 daily. Medical Branch clonazePAM 2021-0 Yes [id number] 1mg Take 1 [facility] 1 mg tablet 7-08 tablet by ity of 00:00: mouth 3 [place] 00 (three) Medical times Branch daily. PHENobarbit 2021-0 Yes [id number] 64.8mg Take 1 [facility] aL 64.8 mg 7-08 tablet by ity of tablet 00:00: mouth [place] 00 daily. Medical Branch clonazePAM 2021-0 Yes [id number] 1mg Take 1 [facility] 1 mg tablet 7-08 tablet by ity of 00:00: mouth 3 [place] 00 (three) Medical times Branch daily. PHENobarbit 2021-0 Yes [id number] 64.8mg Take 1 [facility] aL 64.8 mg 7-08 tablet by ity of tablet 00:00: mouth [place] 00 daily. Medical Branch clonazePAM 2021-0 Yes [id number] 1mg Take 1 [facility] 1 mg tablet 7-08 tablet by ity of 00:00: mouth 3 [place] 00 (three) Medical times Branch daily. PHENobarbit 2021-0 Yes [id number] 64.8mg Take 1 [facility] aL 64.8 mg 7-08 tablet by ity of tablet 00:00: mouth [place] 00 daily. Medical Branch clonazePAM 2021-0 Yes [id number] 1mg Take 1 [facility] 1 mg tablet 7-08 tablet by ity of 00:00: mouth 3 [place] 00 (three) Medical times Branch daily. PHENobarbit 2021-0 Yes [id number] 64.8mg Take 1 [facility] aL 64.8 mg 7-08 tablet by ity of tablet 00:00: mouth [place] 00 daily. Medical Branch PHENobarbit 2021-0 Yes [id number] 64.8mg Take 1 [facility] aL 64.8 mg 7-08 tablet by ity of tablet 00:00: mouth [place] 00 daily. Medical Branch PHENobarbit 2021-0 Yes [id number] 64.8mg Take 1 [facility] aL 64.8 mg 7-08 tablet by ity of tablet 00:00: mouth [place] 00 daily. Medical Branch PHENobarbit 2021-0 Yes [id number] 64.8mg Take 1 [facility] aL 64.8 mg 7-08 tablet by ity of tablet 00:00: mouth [place] 00 daily. Medical Branch PHENobarbit 2021-0 Yes [id number] 64.8mg Take 1 [facility] aL 64.8 mg 7-08 tablet by ity of tablet 00:00: mouth [place] 00 daily. Medical Branch PHENobarbit 2021-0 Yes [id number] 64.8mg Take 1 [facility] aL 64.8 mg 7-08 tablet by ity of tablet 00:00: mouth [place] 00 daily. Medical Branch PHENobarbit 2021-0 2022- No [id number] 64.8mg Take 1 [facility] aL 64.8 mg 7-08 -09 tablet by ity of tablet 00:00: 00:00 mouth [place] 00 :00 daily. Medical Branch PHENobarbit 2021-0 2022- No [id number] 64.8mg Take 1 [facility] aL 64.8 mg 7-08 01-09 tablet by ity of tablet 00:00: 00:00 mouth [place] 00 :00 daily. Medical Branch clonazePAM 2021- No [id number] 1mg Take 1 [facility] 1 mg tablet 05-26 tablet by it y of 00:00: 00:00 mouth 3 [place] 00 :00 (three) Medical times Branch daily. clonazePAM 2021- No [id number] 1mg Take 1 [facility] 1 mg tablet 05-26 tablet by it y of 00:00: 00:00 mouth 3 [place] 00 :00 (three) Medical times Branch daily. carBAMazepi 2021- No [id number] TAKE 2 [facility] ne 300 mg 05-26 CAPSULES ity o f 12 hr 00:00: 04:59 BY MOUTH [place] capsule 00 :00 TWICE A Medical DAY Branch carBAMazepi 2021- No [id number] TAKE 2 [facility] ne 300 mg 05-26 CAPSULES ity o f 12 hr 00:00: 04:59 BY MOUTH [place] capsule 00 :00 TWICE A Medical DAY Branch carBAMazepi 2021- No [id number] TAKE 2 [facility] ne 300 mg 05-26 CAPSULES ity o f 12 hr 00:00: 04:59 BY MOUTH [place] capsule 00 :00 TWICE A Medical DAY Branch divalproex 2021- No [id number] TAKE 4 [facility] ER 250 mg 05-26 TABLETS BY ity of 24 hr 00:00: 00:00 MOUTH [place] tablet 00 :00 EVERY Medical MORNING, 4 Branch TABLETS AT NOON, AND 5 TABLETS IN EVENING DIVALPROEX 2021- No [id number] TAKE 4 [facility] ER 250 mg 05-09 TABLETS BY ity of 24 hr 00:00: 00:00 MOUTH [place] tablet 00 :00 EVERY Medical MORNING, 4 Branch TABLETS AT NOON, AND 5 TABLETS IN EVENING topiramate Yes [id number] 200mg Take 1 [facility] n[facility] (TOPAMAX) 6-08 tablet by ity o f 200 mg 00:00: mouth 2 [place] tablet 00 (two) Medical times Branch daily. topiramate Yes [id number] 200mg Take 1 [facility] nivers (TOPAMAX) 6-08 tablet by ity o f 200 mg 00:00: mouth 2 [place] tablet 00 (two) Medical times Branch daily. topiramate Yes [id number] 200mg Take 1 [facility] n[facility] (TOPAMAX) 6-08 tablet by ity o f 200 mg 00:00: mouth 2 [place] tablet 00 (two) Medical times Branch daily. topiramate 2021- No [id number] 200mg Take 1 [facility] (TOPAMAX) 6-08 -04 tablet by ity of 200 mg 00:00: 00:00 mouth 2 [place] tablet 00 :00 (two) Medical times Branch daily. CARBAMAZEPI 2021- No [id number] TAKE 2 [facility] NE 300 mg 04-10- CAPSULES ity o f 12 hr 00:00: 00:00 BY MOUTH [place] capsule 00 :00 TWICE A Medical DAY Branch PHENOBARBIT 2021- No [id number] TAKE 1 [facility] AL 64.8 mg 03-27- TABLET BY ity of tablet 00:00: 00:00 MOUTH [place] 00 :00 EVERY DAY Medical Branch CLONAZEPAM 2021- No [id number] TAKE 1 [facility] 1 mg tablet 01-27- TABLET BY it y of 00:00: 00:00 MOUTH [place] 00 :00 THREE Medical TIMES A Branch DAY NOVUME Yes 1{tbl} Take 1 [facility] s 50-1,000 mg 5-02 tablet by ity of per tablet 00:00: mouth [place] 00 the Medical morning Branch and 1 tablet in the evening. rosuvastati Yes 10mg Take 10 mg [facility] n 10 mg 5-02 by mouth ity of tablet 00:00: at [place] 00 bedtime. Medical Branch NOVUMET Yes 1{tbl} Take 1 [facility] s 50-1,000 mg 5-02 tablet by ity of per tablet 00:00: mouth in [place] 00 the Medical morning Branch and 1 tablet in the evening. rosuvastati Yes 10mg Take 10 mg [facility] n 10 mg 5-02 by mouth ity of tablet 00:00: at [place] 00 bedtime. Medical Branch NOVUMET Yes 1{tbl} Take 1 [facility] s 50-1,000 mg 5-02 tablet by ity of per tablet 00:00: mouth in [place] 00 the Medical morning Branch and 1 tablet in the evening. rosuvastati Yes 10mg Take 10 mg [facility] n 10 mg 5-02 by mouth ity of tablet 00:00: at [place] 00 bedtime. [facility] Yes 1{tbl} Take 1 [facility] s 50-1,000 mg 5-02 tablet by ity of per tablet 00:00: mouth in [place] 00 the Medical morning Branch and 1 tablet in the evening. rosuvastati Yes 10mg Take 10 mg [facility] n 10 mg 5-02 by mouth ity of tablet 00:00: at [place] 00 bedtime. [facility] Yes 1{tbl} Take 1 [facility] s 50-1,000 mg 5-02 tablet by ity of per tablet 00:00: mouth in [place] 00 the Medical morning Branch and 1 tablet in the evening. rosuvastati Yes 10mg Take 10 mg [facility] n 10 mg 5-02 by mouth ity of tablet 00:00: at [place] 00 bedtime. [facility] Yes 1{tbl} Take 1 [facility] s 50-1,000 mg 5-02 tablet by ity of per tablet 00:00: mouth in [place] 00 the Medical morning Branch and 1 tablet in the evening. rosuvastati Yes 10mg Take 10 mg [facility] n 10 mg 5-02 by mouth ity of tablet 00:00: at [place] 00 bedtime. [facility] Yes 1{tbl} Take 1 [facility] s 50-1,000 mg 5-02 tablet by ity of per tablet 00:00: mouth in [place] 00 the Medical morning Branch and 1 tablet in the evening. rosuvastati Yes 10mg Take 10 mg [facility] n 10 mg 5-02 by mouth ity of tablet 00:00: at [place] 00 bedtime. [facility] Yes 1{tbl} Take 1 [facility] s 50-1,000 mg 5-02 tablet by ity of per tablet 00:00: mouth in [place] 00 the Medical morning Branch and 1 tablet in the evening. rosuvastati Yes 10mg Take 10 mg [facility] n 10 mg 5-02 by mouth ity of tablet 00:00: at [place] 00 bedtime. Medical Branch [facility] Yes 1{tbl} Take 1 [facility] s 50-1,000 mg 5-02 tablet by ity of per tablet 00:00: mouth in [place] 00 the Medical morning Branch and 1 tablet in the evening. rosuvastati Yes 10mg Take 10 mg [facility] n 10 mg 5-02 by mouth ity of tablet 00:00: at [place] 00 bedtime. Medical Branch [facility] Yes 1{tbl} Take 1 [facility] s 50-1,000 mg 5-02 tablet by ity of per tablet 00:00: mouth in [place] 00 the Medical morning Branch and 1 tablet in the evening. rosuvastati Yes 10mg Take 10 mg [facility] n 10 mg 5-02 by mouth ity of tablet 00:00: at [place] 00 bedtime. Medical Branch [facility] Yes 1{tbl} Take 1 [facility] s 50-1,000 mg 5-02 tablet by [facility] of per tablet 00:00: mouth 2 [place] 00 (two) Medical times Branch daily. rosuvastati Yes 10mg Take 10 mg [facility] n 10 mg 5-02 by mouth ity of tablet 00:00: at [place] 00 bedtime. Medical [facility] Yes 1{tbl} Take 1 [facility] s 50-1,000 mg 5-02 tablet by it[facility] of per tablet 00:00: mouth 2 [place] 00 (two) Medical times Branch daily. rosuvastati Yes 10mg Take 10 mg [facility] n 10 mg 5-02 by mouth ity of tablet 00:00: at [place] 00 bedtime. Medical [facility] Yes 1{tbl} Take 1 [facility] s 50-1,000 mg 5-02 tablet by it[facility] of per tablet 00:00: mouth 2 [place] 00 (two) Medical times Branch daily. rosuvastati Yes 10mg Take 10 mg [facility] n 10 mg 5-02 by mouth ity of tablet 00:00: at [place] 00 bedtime. Medical [facility] Yes 1{tbl} Take 1 [facility] s 50-1,000 mg 5-02 tablet by [facility]y of per tablet 00:00: mouth 2 [place] 00 (two) Medical times Branch daily. rosuvastati Yes 10mg Take 10 mg [facility] n 10 mg 5-02 by mouth ity of tablet 00:00: at [place] 00 bedtime. Medical Branch [facility] Yes 1{tbl} Take 1 [facility] s 50-1,000 mg 5-02 tablet by [facility] of per tablet 00:00: mouth 2 [place] 00 (two) Medical times Branch daily. rosuvastati Yes 10mg Take 10 mg [facility] n 10 mg 5-02 by mouth ity of tablet 00:00: at [place] 00 bedtime. Medical Branch [facility] Yes 1{tbl} Take 1 [facility] s 50-1,000 mg 5-02 tablet by [facility] of per tablet 00:00: mouth 2 [place] 00 (two) Medical times Branch daily. rosuvastati Yes 10mg Take 10 mg [facility] n 10 mg 5-02 by mouth ity of tablet 00:00: at [place] 00 bedtime. Medical Branch [facility] Yes 1{tbl} Take 1 [facility] s 50-1,000 mg 5-02 tablet by [facility] of per tablet 00:00: mouth 2 [place] 00 (two) Medical times Branch daily. rosuvastati Yes 10mg Take 10 mg [facility] n 10 mg 5-02 by mouth ity of tablet 00:00: at [place] 00 bedtime. Medical Branch [facility] Yes 1{tbl} Take 1 [facility] s 50-1,000 mg 5-02 tablet by [facility]y of per tablet 00:00: mouth 2 [place] 00 (two) Medical times Branch daily. rosuvastati Yes 10mg Take 10 mg [facility] n 10 mg 5-02 by mouth ity of tablet 00:00: at [place] 00 bedtime. Medical Branch [facility] Yes 1{tbl} Take 1 [facility] s 50-1,000 mg 5-02 tablet by [facility]y of per tablet 00:00: mouth 2 [place] 00 (two) Medical times Branch daily. rosuvastati Yes 10mg Take 10 mg [facility] n 10 mg 5-02 by mouth ity of tablet 00:00: at [place] 00 bedtime. [facility] 1{[facility]} Take 1 [facility] s 50-1,000 mg 5-02 tablet by [facility] of per tablet 00:00: mouth 2 [place] 00 (two) Medical times Branch daily. rosuvastati Yes 10mg Take 10 mg [facility] n 10 mg 5-02 by mouth ity of tablet 00:00: at [place] 00 bedtime. [facility] Yes 1{tbl} Take 1 [facility] s 50-1,000 mg 5-02 tablet by ity of per tablet 00:00: mouth 2 [place] 00 (two) Medical times Branch daily. rosuvastati Yes 10mg Take 10 mg [facility] n 10 mg 5-02 by mouth ity of tablet 00:00: at [place] 00 bedtime. Medical [facility] Yes 1{tbl} Take 1 [facility] s 50-1,000 mg 5-02 tablet by ity of per tablet 00:00: mouth 2 [place] 00 (two) Medical times Branch daily. rosuvastati Yes 10mg Take 10 mg [facility] n 10 mg 5-02 by mouth ity of tablet 00:00: at [place] 00 bedtime. Medical [facility] Yes 1{tbl} Take 1 [facility] s 50-1,000 mg 5-02 tablet by ity of per tablet 00:00: mouth 2 [place] 00 (two) Medical times Branch daily. rosuvastati Yes 10mg Take 10 mg [facility] n 10 mg 5-02 by mouth ity of tablet 00:00: at [place] 00 bedtime. Medical Branch [facility] Yes 1{tbl} Take 1 [facility] s 50-1,000 mg 5-02 tablet by ity of per tablet 00:00: mouth 2 [place] 00 (two) Medical times Branch daily. rosuvastati Yes 10mg Take 10 mg [facility] n 10 mg 5-02 by mouth ity of tablet 00:00: at [place] 00 bedtime. Medical [facility] Yes 1{tbl} Take 1 [facility] 50-1,000 mg 5-02 tablet by ity of per tablet 00:00: mouth 2 [place] 00 (two) Medical times Branch daily. rosuvastati Yes 10mg Take 10 mg [facility] n 10 mg 5-02 by mouth ity of tablet 00:00: at [place] 00 bedtime. Medical Branch [facility] Yes 1{tbl} Take 1 [facility] s 50-1,000 mg 5-02 tablet by ity of per tablet 00:00: mouth 2 [place] 00 (two) Medical times Branch daily. rosuvastati Yes 10mg Take 10 mg [facility] n 10 mg 5-02 by mouth ity of tablet 00:00: at [place] 00 bedtime. Medical [facility] Yes 1{tbl} Take 1 [facility] s 50-1,000 mg 5-02 tablet by ity of per tablet 00:00: mouth 2 [place] 00 (two) Medical times Branch daily. rosuvastati Yes 10mg Take 10 mg [facility] n 10 mg 5-02 by mouth ity of tablet 00:00: at [place] 00 bedtime. Medical [facility] Yes 1{tbl} Take 1 [facility] s 50-1,000 mg 5-02 tablet by ity of per tablet 00:00: mouth 2 [place] 00 (two) Medical times Branch daily. rosuvastati Yes 10mg Take 10 mg [facility] n 10 mg 5-02 by mouth ity of tablet 00:00: at [place] 00 bedtime. Medical Branch [facility] Yes 1{tbl} Take 1 [facility] s 50-1,000 mg 5-02 tablet by ity of per tablet 00:00: mouth 2 [place] 00 (two) Medical times Branch daily. rosuvastati Yes 10mg Take 10 mg [facility] n 10 mg 5-02 by mouth ity of tablet 00:00: at [place] 00 bedtime. Medical Branch [facility] Yes 1{tbl} Take 1 [facility] s 50-1,000 mg 5-02 tablet by ity of per tablet 00:00: mouth 2 [place] 00 (two) Medical times Branch daily. rosuvastati Yes 10mg Take 10 mg [facility] n 10 mg 5-02 by mouth ity of tablet 00:00: at [place] 00 bedtime. Medical Branch [facility] Yes 1{tbl} Take 1 [facility] s 50-1,000 mg 5-02 tablet by ity of per tablet 00:00: mouth 2 [place] 00 (two) Medical times Branch daily. rosuvastati Yes 10mg Take 10 mg [facility] n 10 mg 5-02 by mouth ity of tablet 00:00: at [place] 00 bedtime. Medical Branch [facility] Yes 1{tbl} Take 1 [facility] s 50-1,000 mg 5-02 tablet by ity of per tablet 00:00: mouth 2 [place] 00 (two) Medical times Branch daily. rosuvastati Yes 10mg Take 10 mg [facility] n 10 mg 5-02 by mouth ity of tablet 00:00: at [place] 00 bedtime. Medical Branch [facility] Yes 1{tbl} Take 1 [facility] s 50-1,000 mg 5-02 tablet by ity of per tablet 00:00: mouth in [place] 00 the Medical morning Branch and 1 tablet in the evening. rosuvastati Yes 10mg Take 10 mg [facility] n 10 mg 5-02 by mouth ity of tablet 00:00: at [place] 00 bedtime. Medical Branch [facility] Yes 1{tbl} Take 1 [facility] s 50-1,000 mg 5-02 tablet by ity of per tablet 00:00: mouth in [place] 00 the Medical morning Branch and 1 tablet in the evening. rosuvastati Yes 10mg Take 10 mg [facility] n 10 mg 5-02 by mouth ity of tablet 00:00: at [place] 00 bedtime. Medical [facility] Yes 1{tbl} Take 1 [facility] s 50-1,000 mg 5-02 tablet by ity of per tablet 00:00: mouth in [place] 00 the Medical morning Branch and 1 tablet in the evening. rosuvastati Yes 10mg Take 10 mg [facility] n 10 mg 5-02 by mouth ity of tablet 00:00: at [place] 00 bedtime. Medical [facility] Yes 1{tbl} Take 1 [facility] s 50-1,000 mg 5-02 tablet by ity of per tablet 00:00: mouth in [place] 00 the Medical morning Branch and 1 tablet in the evening. rosuvastati Yes 10mg Take 10 mg [facility] n 10 mg 5-02 by mouth ity of tablet 00:00: at [place] 00 bedtime. [facility]} Take 1 [facility] s 50-1,000 mg 5-02 tablet by ity of per tablet 00:00: mouth in [place] 00 the Medical morning Branch and 1 tablet in the evening. rosuvastati Yes 10mg Take 10 mg [facility] n 10 mg 5-02 by mouth ity of tablet 00:00: at [place] 00 bedtime. Medical Branch [facility] 1{[facility]} Take 1 [facility] s 50-1,000 mg 5-02 tablet by ity of per tablet 00:00: mouth in [place] 00 the Medical morning Branch and 1 tablet in the evening. rosuvastati Yes 10mg Take 10 mg [facility] n 10 mg 5-02 by mouth ity of tablet 00:00: at [place] 00 bedtime. Medical Branch levothyroxi Yes TAKE 1 [facility] ers ne 50 mcg 4-10 TABLET BY ity o f tablet 00:00: MOUTH 00 DAILY ON Medical AN EMPTY Branch STOMACH levothyroxi Yes TAKE 1 [facility] ers ne 50 mcg 4-10 TABLET BY ity o f tablet 00:00: MOUTH 00 DAILY ON Medical AN EMPTY Branch STOMACH levothyroxi 0 Yes TAKE 1 [facility] ers ne 50 mcg 4-10 TABLET BY ity o f tablet 00:00: MOUTH 00 DAILY ON Medical AN EMPTY Branch STOMACH levothyroxi 0 Yes TAKE 1 [facility] ers ne 50 mcg 4-10 TABLET BY ity o f tablet 00:00: MOUTH [place] 00 DAILY ON Medical AN EMPTY Branch STOMACH levothyroxi Yes TAKE 1 [facility] ers ne 50 mcg 4-10 TABLET BY ity o f tablet 00:00: MOUTH 00 DAILY ON Medical AN EMPTY Branch STOMACH levothyroxi Yes TAKE 1 [facility] ers ne 50 mcg 4-10 TABLET BY ity o f tablet 00:00: MOUTH 00 DAILY ON Medical AN EMPTY Branch STOMACH levothyroxi 2020-0 Yes TAKE 1 [facility] ers ne 50 mcg 4-10 TABLET BY ity o f tablet 00:00: MOUTH 00 DAILY ON Medical AN EMPTY Branch STOMACH levothyroxi 2020-0 Yes TAKE 1 [facility] ers ne 50 mcg 4-10 TABLET BY ity o f tablet 00:00: MOUTH DAILY ON Medical AN EMPTY Branch STOMACH levothyroxi 2020-0 Yes TAKE 1 [facility] ers ne 50 mcg 4-10 TABLET BY ity o f tablet 00:00: MOUTH 00 DAILY ON Medical AN EMPTY Branch STOMACH levothyroxi 2020-0 Yes TAKE 1 [facility] ers ne 50 mcg 4-10 TABLET BY ity o f tablet 00:00: MOUTH DAILY ON Medical AN EMPTY Branch STOMACH levothyroxi 2020-0 Yes TAKE 1 [facility] ers ne 50 mcg 4-10 TABLET BY ity o f tablet 00:00: MOUTH DAILY ON Medical AN EMPTY Branch STOMACH levothyroxi 2020-0 Yes TAKE 1 [facility] ers ne 50 mcg 4-10 TABLET BY ity o f tablet 00:00: MOUTH 00 DAILY ON Medical AN EMPTY Branch STOMACH levothyroxi 2020-0 Yes TAKE 1 [facility] ers ne 50 mcg 4-10 TABLET BY ity o f tablet 00:00: MOUTH DAILY ON Medical AN EMPTY Branch STOMACH levothyroxi 2020-0 Yes TAKE 1 [facility] ers ne 50 mcg 4-10 TABLET BY ity o f tablet 00:00: MOUTH DAILY ON Medical AN EMPTY Branch STOMACH levothyroxi 2020-0 Yes TAKE 1 [facility] ers ne 50 mcg 4-10 TABLET BY ity o f tablet 00:00: MOUTH 00 DAILY ON Medical AN EMPTY Branch STOMACH levothyroxi 2020-0 Yes TAKE 1 [facility] ers ne 50 mcg 4-10 TABLET BY ity o f tablet 00:00: MOUTH 00 DAILY ON Medical AN EMPTY Branch STOMACH levothyroxi 2020-0 Yes TAKE 1 [facility] ers ne 50 mcg 4-10 TABLET BY ity o f tablet 00:00: MOUTH 00 DAILY ON Medical AN EMPTY Branch STOMACH levothyroxi 2020-0 Yes TAKE 1 [facility] ers ne 50 mcg 4-10 TABLET BY ity o f tablet 00:00: MOUTH 00 DAILY ON Medical AN EMPTY Branch STOMACH levothyroxi Yes TAKE 1 [facility] ers ne 50 mcg 4-10 TABLET BY ity o f tablet 00:00: MOUTH [place] 00 DAILY ON Medical AN EMPTY Branch STOMACH levothyroxi Yes TAKE 1 [facility] ers ne 50 mcg 4-10 TABLET BY ity o f tablet 00:00: MOUTH [place] 00 DAILY ON Medical AN EMPTY Branch STOMACH levothyroxi Yes TAKE 1 [facility] ers ne 50 mcg 4-10 TABLET BY ity o f tablet 00:00: MOUTH 00 DAILY ON Medical AN EMPTY Branch STOMACH levothyroxi Yes TAKE 1 [facility] ers ne 50 mcg 4-10 TABLET BY ity o f tablet 00:00: MOUTH 00 DAILY ON Medical AN EMPTY Branch STOMACH levothyroxi Yes TAKE 1 [facility] ers ne 50 mcg 4-10 TABLET BY ity o f tablet 00:00: MOUTH 00 DAILY ON Medical AN EMPTY Branch STOMACH levothyroxi Yes TAKE 1 [facility] ers ne 50 mcg 4-10 TABLET BY ity o f tablet 00:00: MOUTH 00 DAILY ON Medical AN EMPTY Branch STOMACH levothyroxi Yes TAKE 1 [facility] ers ne 50 mcg 4-10 TABLET BY ity o f tablet 00:00: MOUTH 00 DAILY ON Medical AN EMPTY Branch STOMACH levothyroxi Yes TAKE 1 [facility] ers ne 50 mcg 4-10 TABLET BY ity o f tablet 00:00: MOUTH [place] 00 DAILY ON Medical AN EMPTY Branch STOMACH levothyroxi Yes TAKE 1 [facility] ers ne 50 mcg 4-10 TABLET BY ity o f tablet 00:00: MOUTH 00 DAILY ON Medical AN EMPTY Branch STOMACH levothyroxi 0 3- No TAKE 1 Uni vers ne 50 mcg 4-10 06-16 TABLET BY ity of tablet 00:00: 00:00 MOUTH [place] 00 :00 DAILY ON Medical AN EMPTY Branch STOMACH Methocarbam 2016-11 Yes 1,000 mg = [facility] 500 MG 2-03 2 tab, PO, l Oral Tablet 17:11: QID, X 3 [place] [Robaxin] 00 day, # 24 tab, 0 Refill(s) Methocarbam 2016-11 Yes 1,000 mg = [facility] 500 MG 2-03 2 tab, PO, l Oral Tablet 17:11: QID, X 3 [place] [Robaxin] 00 day, # 24 tab, 0 Refill(s) Methocarbam 2016-11 Yes 1,000 mg = [facility] 500 MG 2-03 2 tab, PO, l Oral Tablet 17:11: QID, X 3 [place] [Robaxin] 00 day, # 24 tab, 0 Refill(s) Methocarbam 2016-11 Yes 1,000 mg = [facility] 500 MG 2-03 2 tab, PO, l Oral Tablet 17:11: QID, X 3 [place] [Robaxin] day, # 24 tab, 0 Refill(s) Methocarbam 2016-11 Yes 1,000 mg = [facility] 500 MG 2-03 2 tab, PO, l Oral Tablet 17:11: QID, X 3 [place] [Robaxin] day, # 24 tab, 0 Refill(s) Methocarbam 2016-11 Yes 1,000 mg = [facility] 500 MG 2-03 2 tab, PO, l Oral Tablet 17:11: QID, X 3 [place] [Robaxin] day, # 24 tab, 0 Refill(s) Methocarbam 2016-11 Yes 1,000 mg = [facility] 500 MG 2-03 2 tab, PO, l Oral Tablet 17:11: QID, X 3 [place] [Robaxin] day, # 24 tab, 0 Refill(s) Methocarbam 2016-11 Yes 1,000 mg = [facility] 500 MG 2-03 2 tab, PO, l Oral Tablet 17:11: QID, X 3 [place] [Robaxin] 00 day, # 24 tab, 0 Refill(s) tramadol 2016-11 Yes 50 mg = 1 Randy orestes hydrochlori 2-03 tab, PO, l de 50 MG 17:10: Q4H, PRN [place] Oral Tablet 00 pain, X 3 [Ultram] day, # 20 tab, 0 Refill(s) tramadol 2016-11 Yes 50 mg = 1 Randy orestes hydrochlori 2-03 tab, PO, l de 50 MG 17:10: Q4H, PRN [place] Oral Tablet 00 pain, X 3 [Ultram] day, # 20 tab, 0 Refill(s) tramadol 2017-1 Yes 50 mg = 1 [facility] orestes hydrochlori 2-03 tab, PO, l de 50 MG 17:10: Q4H, PRN [place] Oral Tablet 00 pain, X 3 [Ultram] day, # 20 tab, 0 Refill(s) tramadol 2016-11 Yes 50 mg = 1 [facility] orestes hydrochlori 2-03 tab, PO, l de 50 MG 17:10: Q4H, PRN [place] Oral Tablet 00 pain, X 3 [Ultram] day, # 20 tab, 0 Refill(s) tramadol 2016-11 Yes 50 mg = 1 Randy orestes hydrochlori 2-03 tab, PO, l de 50 MG 17:10: Q4H, PRN [place] Oral Tablet 00 pain, X 3 [Ultram] day, # 20 tab, 0 Refill(s) tramadol 2016-11 Yes 50 mg = 1 Randy orestes hydrochlori 2-03 tab, PO, l de 50 MG 17:10: Q4H, PRN [place] Oral Tablet 00 pain, X 3 [Ultram] day, # 20 tab, 0 Refill(s) tramadol 2016-11 Yes 50 mg = 1 Randy orestes hydrochlori 2-03 tab, PO, l de 50 MG 17:10: Q4H, PRN Santa nn Oral Tablet 00 pain, X 3 [Ultram] day, # 20 tab, 0 Refill(s) tramadol 2016-11 Yes 50 mg = 1 Randy orestes hydrochlori 2-03 tab, PO, l de 50 MG 17:10: Q4H, PRN Santa nn Oral Tablet 00 pain, X 3 [Ultram] day, # 20 tab, 0 Refill(s) Zofran 2016-11 No 4 mg, Memoria 2-03 Route: l 14:40: IVP, Drug form: INJ, ONCE, Dosing Weight 77.273, kg, Priority: STAT, Start date: 10/21/17 8:40:00 ERGONOMICS CONSULTANT, Stop date: 10/21/17 8:40:00 ERGONOMICS CONSULTANT Saline 2016-11 No Notes: Memoria Flush 0.9% 12-22 (Same as: l 14:40: BD Posiflush) Morphine 2016-11 No 4 mg, Memoria 2-03 Route: l 14:40: IVP, ONCE, Dosing Weight 77.273, kg, Priority: STAT, Start date: 10/21/17 8:40:00 ERGONOMICS CONSULTANT, Stop date: 10/21/17 8:40:00 ERGONOMICS CONSULTANT Zofran 2016- No 4 mg, Memoria 2-03 Route: l 14:40: IVP, Drug [place] 00 form: INJ, ONCE, Dosing Weight 77.273, kg, Priority: STAT, Start date: 10/21/17 8:40:00 ERGONOMICS CONSULTANT, Stop date: 10/21/17 8:40:00 ERGONOMICS CONSULTANT Saline 2016-11 No Notes: Memoria Flush 0.9% 2-03 (Same as: l 14:40: BD Asael 00 Posiflush) Morphine 2016-11 No 4 mg, Memoria 2-03 Route: l 14:40: IVP, ONCE, Asael Dosing Weight 77.273, kg, Priority: STAT, Start date: 10/21/17 8:40:00 ERGONOMICS CONSULTANT, Stop date: 10/21/17 8:40:00 ERGONOMICS CONSULTANT Zofran 2016-11 No 4 mg, Memoria 2-03 Route: l 14:40: IVP, Drug [place] 00 form: INJ, ONCE, Dosing Weight 77.273, kg, Priority: STAT, Start date: 10/21/17 8:40:00 ERGONOMICS CONSULTANT, Stop date: 10/21/17 8:40:00 ERGONOMICS CONSULTANT Saline 2016-11 No Notes: Memoria Flush 0.9% 2-03 (Same as: l 14:40: BD [place] 00 Posiflush) Morphine 2016-11 No 4 mg, Memoria 2-03 Route: l 14:40: IVP, ONCE, [place] 00 Dosing Weight 77.273, kg, Priority: STAT, Start date: 10/21/17 8:40:00 ERGONOMICS CONSULTANT, Stop date: 10/21/17 8:40:00 ERGONOMICS CONSULTANT Zofran 2016-11 No 4 mg, Memoria 2-03 Route: l 14:40: IVP, Drug [place] 00 form: INJ, ONCE, Dosing Weight 77.273, kg, Priority: STAT, Start date: 10/21/17 8:40:00 ERGONOMICS CONSULTANT, Stop date: 10/21/17 8:40:00 ERGONOMICS CONSULTANT Saline 2016-11 No Notes: Memoria Flush 0.9% 2-03 (Same as: l 14:40: BD [place] 00 Posiflush) Morphine 2016-11 No 4 mg, Memoria 2-03 Route: l 14:40: IVP, ONCE, [place] 00 Dosing Weight 77.273, kg, Priority: STAT, Start date: 10/21/17 8:40:00 ERGONOMICS CONSULTANT, Stop date: 10/21/17 8:40:00 ERGONOMICS CONSULTANT Zofran 2016-11 No 4 mg, Memoria 2-03 Route: l 14:40: IVP, Drug [place] 00 form: INJ, ONCE, Dosing Weight 77.273, kg, Priority: STAT, Start date: 10/21/17 8:40:00 ERGONOMICS CONSULTANT, Stop date: 10/21/17 8:40:00 ERGONOMICS CONSULTANT Saline 2016-11 No Notes: Memoria Flush 0.9% 2-03 (Same as: l 14:40: BD [place] 00 Posiflush) Morphine 2016-11 No 4 mg, Memoria 2-03 Route: l 14:40: IVP, ONCE, Asael Dosing Weight 77.273, kg, Priority: STAT, Start date: 10/21/17 8:40:00 ERGONOMICS CONSULTANT, Stop date: 10/21/17 8:40:00 ERGONOMICS CONSULTANT Zofran 2016-11 No 4 mg, Memoria 2-03 Route: l 14:40: IVP, Drug [place] 00 form: INJ, ONCE, Dosing Weight 77.273, kg, Priority: STAT, Start date: 10/21/17 8:40:00 ERGONOMICS CONSULTANT, Stop date: 10/21/17 8:40:00 ERGONOMICS CONSULTANT Saline 2016-11 No Notes: Memoria Flush 0.9% 2-03 (Same as: l 14:40: BD [place] 00 Posiflush) Morphine 2016-11 No 4 mg, Memoria 2-03 Route: l 14:40: IVP, ONCE, [place] 00 Dosing Weight 77.273, kg, Priority: STAT, Start date: 10/21/17 8:40:00 ERGONOMICS CONSULTANT, Stop date: 10/21/17 8:40:00 ERGONOMICS CONSULTANT Zofran 2016-11 No 4 mg, Memoria 2-03 Route: l 14:40: IVP, Drug [place] 00 form: INJ, ONCE, Dosing Weight 77.273, kg, Priority: STAT, Start date: 10/21/17 8:40:00 ERGONOMICS CONSULTANT, Stop date: 10/21/17 8:40:00 ERGONOMICS CONSULTANT Saline 2016-11 No Notes: Memoria Flush 0.9% 2-03 (Same as: l 14:40: BD [place] 00 Posiflush) Morphine 2016-11 No 4 mg, Memoria 2-03 Route: l 14:40: IVP, ONCE, [place] 00 Dosing Weight 77.273, kg, Priority: STAT, Start date: 10/21/17 8:40:00 ERGONOMICS CONSULTANT, Stop date: 10/21/17 8:40:00 ERGONOMICS CONSULTANT Zofran 2016-11 No 4 mg, Memoria 2-03 Route: l 14:40: IVP, Drug [place] 00 form: INJ, ONCE, Dosing Weight 77.273, kg, Priority: STAT, Start date: 10/21/17 8:40:00 ERGONOMICS CONSULTANT, Stop date: 10/21/17 8:40:00 ERGONOMICS CONSULTANT Saline 2016-11 No Notes: Memoria Flush 0.9% 2-03 (Same as: l 14:40: BD [place] 00 Posiflush) Morphine 2016-11 No 4 mg, Memoria 2-03 Route: l 14:40: IVP, ONCE, Dosing Weight 77.273, kg, Priority: STAT, Start date: 10/21/17 8:40:00 ERGONOMICS CONSULTANT, Stop date: 10/21/17 8:40:00 ERGONOMICS CONSULTANT Vital Signs Vital Name Observation Time Observation Value Comments Source Systolic blood 2023-05-29 18:07:00 132 mm[Hg] Univer sity [facility] Diastolic blood 2023-05-29 18:07:00 83 mm[Hg] [facility] 2023-05-29 18:07:00 85 /min [facility] Respiratory rate 2023-05-29 18:07:00 18 /min [facility] Body height 2023-05-29 18:07:00 188 cm [facility] Body weight 2023-05-29 18:07:00 102.558 kg [facility] BMI 2023-05-29 18:07:00 29.03 kg/m2 [facility] Oxygen saturation in 2023-05-29 18:07:00 97 /min [facility] Arterial blood by [facility] Pulse oximetry Branch Systolic blood 2023-05-06 16:44:00 144 mm[Hg] Univer sity of pressure [facility] Diastolic blood 2023-05-06 16:44:00 86 mm[Hg] Unive rsity of pressure [facility] Heart rate 2023-05-06 16:44:00 83 /min [facility] Body temperature 2023-05-06 16:44:00 36.67 Saloni [facility] Respiratory rate 2023-05-06 16:44:00 18 /min [facility] Oxygen saturation in 2023-05-06 16:44:00 95 /min [facility] Arterial blood by [facility] Pulse oximetry Branch Body weight 2023-05-06 02:59:00 115.667 kg [facility] BMI 2023-05-06 02:59:00 32.74 kg/m2 [facility] Systolic blood 2023-05-05 21:05:00 114 mm[Hg] Univer sity of pressure [facility] Diastolic blood 2023-05-05 21:05:00 65 mm[Hg] Unive rsity of pressure [facility] Heart rate 2023-05-05 21:05:00 81 /min [facility] Body temperature 2023-05-05 21:05:00 36.5 Saloni [facility] Respiratory rate 2023-05-05 21:05:00 18 /min [facility] Oxygen saturation in 2023-05-05 21:05:00 94 /min [facility]ter[facility] blood by [facility] Pulse oximetry Branch Body weight 2023-04-25 22:29:00 115.667 kg [facility] BMI 2023-04-25 22:29:00 32.74 kg/m2 [facility] Systolic blood 2023-04-15 06:00:00 142 mm[Hg] Univer sity of pressure [facility] Diastolic blood 2023-04-15 06:00:00 100 mm[Hg] Unive rsity of pressure [facility] Heart rate 2023-04-15 06:00:00 75 /min [facility] Respiratory rate 2023-04-15 06:00:00 16 /min [facility] Oxygen saturation in 2023-04-15 06:00:00 100 /min [facility] [place] [facility] Pulse oximetry [facility] Body temperature 2023-04-15 02:48:00 35.61 Saloni [facility] Body height 2023-04-15 02:48:00 188 cm [facility] Body weight 2023-04-15 02:48:00 115.667 kg [facility] BMI 2023-04-15 02:48:00 32.74 kg/m2 [facility] Systolic blood 2023-03-06 16:23:00 139 mm[Hg] Univer sity of pressure [facility] Diastolic blood 2023-03-06 16:23:00 89 mm[Hg] Unive rsity of pressure [facility] Heart rate 2023-03-06 16:22:00 83 /min [facility] Respiratory rate 2023-03-06 16:22:00 18 /min Univ [facility] Body weight 2023-03-06 16:22:00 115.667 kg [facility] BMI 2023-03-06 16:22:00 34.58 kg/m2 [facility] Oxygen saturation in 2023-03-06 16:22:00 96 /min [facility] blood by [facility] Pulse oximetry Branch Systolic blood 2023-02-21 16:15:00 165 mm[Hg] Univer sity of pressure [facility] Diastolic blood 2023-02-21 16:15:00 86 mm[Hg] Unive rsity of pressure [facility] Heart rate 2023-02-21 16:15:00 96 /min [facility] Respiratory rate 2023-02-21 16:15:00 20 /min Univ [facility] Oxygen saturation in 2023-02-21 16:15:00 99 /min [facility] Arterial blood by [facility] Pulse oximetry Branch Body temperature 2023-02-21 14:57:00 36.11 Saloni [facility] Body weight 2023-02-21 13:44:00 115.667 kg [facility] BMI 2023-02-21 13:44:00 34.58 kg/m2 Universi ty [facility] Systolic blood 2022-11-27 14:29:00 153 mm[Hg] Univer sity of pressure [facility] Diastolic blood 2022-11-27 14:29:00 87 mm[Hg] Unive rsity of pressure [facility] Heart rate 2022-11-27 14:29:00 105 /min Universi [facility] Body height 2022-11-27 14:29:00 182.9 cm Universi ty [facility] Body weight 2022-11-27 14:29:00 115.667 kg Universi [facility] BMI 2022-11-27 14:29:00 34.58 kg/m2 [facility] Oxygen saturation in 2022-11-27 14:29:00 96 /min [facility] Arterial blood by [facility] Pulse oximetry Branch Respitory Rate 2017-10-21 17:26:00 Memori al [place] Heart Rate 2017-10-21 17:26:00 [facility] [place] Systolic (mm Hg) 2017-10-21 17:26:00 Randy rial [place] Diastolic (mm Hg) 2017-10-21 17:26:00 Mem orial [place] Temperature Oral (F) 2017-10-21 17:26:00 98.8 F [facility] [place] Temperature Oral (F) 2017-10-21 14:13:00 99 F [facility] [place] Heart Rate 2017-10-21 14:13:00 [facility] [place] Respitory Rate 2017-10-21 14:13:00 Memori al [place] Height 2017-10-21 14:13:00 170.18 cm [facility] [place] Systolic (mm Hg) 2017-10-21 14:13:00 Randy rial [place] Diastolic (mm Hg) 2017-10-21 14:13:00 Mem orial [place] Weight 2017-10-21 14:13:00 [facility] [place] BMI Calculated 2017-10-21 14:13:00 Memori al [place] Procedures Procedure Date / Time Performing Source Performed Clinician POCT GLUCOSE (AUTOMATED) 2023-05-06 [facility] 16:46:00 , [facility] POCT GLUCOSE (AUTOMATED) 2023-05-06 Pete [facility] 12:59:00 , [facility] [place] URINALYSIS 2023-05-06 Ryan Boone [facility] exas 06:24:[address] HEAD WO CONTRAST 2023-05-06 Ryan Boone [facility] 04:15:29 Medical Branch CREATINE KINASE 2023-05-06 Elnaeem, [facility] xas 03:47:00 Medical Branch COMP. METABOLIC PANEL (13851) 2023-05-06 Ryan Boone [facility] 03:47:00 [facility] VALPROIC ACID, FREE 2023-05-06 Ryan Boone [facility] 03:47:00 Medical Branch CBC WITH DIFF 2023-05-06 Ryan Boone [facility] exas 03:47:00 [facility] JUAN DANIEL AURIS SURVEILLANCE BY 2023-05-06 Ryan Boone [facility] PCR (INFECTION CONTROL 03:47:00 Medical [place] PURPOSES) POCT GLUCOSE (AUTOMATED) 2023-05-06 Doctor Unassigned, [facility] 03:06:00 [place] [facility] POCT GLUCOSE (AUTOMATED) 2023-05-05 Tyrone [facility] 21:59:00 Medical Branch POCT GLUCOSE (AUTOMATED) 2023-05-05 Tyrone [facility] 16:37:00 Medical Branch COVID-19 (ID NOW RAPID [facility]23[facility] 16:09:00 Medical Branch POCT GLUCOSE (AUTOMATED) 2023-05-05 Tyrone [facility] 13:00:00 Medical Branch POCT GLUCOSE (AUTOMATED) 2023-05-05 Tyrone [facility] 01:26:00 Medical Branch POCT GLUCOSE (AUTOMATED) 2023-05-04 Tyrone [facility] 22:14:00 Medical Branch POCT GLUCOSE (AUTOMATED) 2023-05-04 Tyrone [facility] 16:32:00 Medical Branch POCT GLUCOSE (AUTOMATED) 2023-05-04 Tyrone [facility] 13:09:00 Medical Branch MAGNESIUM 2023-05-04 Jeimy [facility] [place] 08:14:00 [facility] [place] BASIC METABOLIC PANEL (NA, K, 2023-05-04 Susan Munson [facility] [place] CL, CO2, GLUCOSE, BUN, 08:14:00 Medical B ranch CREATININE, CA) POCT GLUCOSE (AUTOMATED) 2023-05-04 [facility] 00:55[facility]00 [facility] POCT GLUCOSE (AUTOMATED) 2023-05-03 [facility] 21:28:00 [facility] POCT GLUCOSE (AUTOMATED) 2023[facility]05-[facility] 16:49[facility]00 [facility] POCT GLUCOSE (AUTOMATED) 2023[facility]05-[facility] 12:46:00 [facility] POCT GLUCOSE (AUTOMATED) 2023-05-03 [facility] 01:54:00 [facility] POCT GLUCOSE (AUTOMATED) 2023-05-02 [facility] 22:04:00 [facility] POCT GLUCOSE (AUTOMATED) 2023-05-02 Hansen [facility] 16:59:00 [facility] POCT GLUCOSE (AUTOMATED) 2023-05-02 [facility] 13:39:00 [facility] MAGNESIUM 2023-05-02 [facility] 11:30:00 [facility] BASIC METABOLIC PANEL (NA, K, 2023-05-02 Susan Munson [facility] [place] CL, CO2, GLUCOSE, BUN, 11:30:00 Medical B ran CREATININE, CA) CBC WITH DIFF 2023-05-02 [facility] [place] 11:30:00 [facility] POCT GLUCOSE (AUTOMATED) 2023-05-02 [facility] 01:28:00 [facility] POCT GLUCOSE (AUTOMATED) 2023-05-01 Hansen [facility] 22:45:00 Medical Branch POCT GLUCOSE (AUTOMATED) 2023-05-01 [facility] 17:25:00 Medical Branch POCT GLUCOSE (AUTOMATED) 2023-05-01 Tyrone [facility] 13:37:00 Medical Branch POCT GLUCOSE (AUTOMATED) 2023-05-01 Hansen, [facility] 01:02:00 Medical Branch POCT GLUCOSE (AUTOMATED) 2023-04-30 Tyrone [facility] 21:36:00 Medical Branch POCT GLUCOSE (AUTOMATED) 2023-04-30 [facility] 17:03:00 Medical Branch POCT GLUCOSE (AUTOMATED) 2023-04-30 Tyrone [facility] 12:43:00 Medical Branch MAGNESIUM 2023-04-30 [facility] 11:10:00 Medical [facility] BASIC METABOLIC PANEL (NA, K, 2023-04-30 Marlon Williamson [facility] CL, CO2, GLUCOSE, BUN, 11:10:00 Medical B ran CREATININE, CA) VALPROIC ACID, FREE 2023-04-30 Laz, [facility] 11:10:00 Medical Branch CBC WITH DIFF 2023-04-30 [facility] 11:10:00 Medical Branch POCT GLUCOSE (AUTOMATED) 2023-04-30 Hansen [facility] 01:35:00 Medical Branch POCT GLUCOSE (AUTOMATED) 2023-04-29 Hansen [facility] 21:21:00 Medical Branch POCT GLUCOSE (AUTOMATED) 2023-04-29 [facility] 17:05:00 Medical Branch POCT GLUCOSE (AUTOMATED) 2023-04-29 [facility] 12:56:00 Medical Branch POCT GLUCOSE (AUTOMATED) 2023-04-29 [facility] 01:53:00 Medical Branch POCT GLUCOSE (AUTOMATED) 2023-04-28 [facility] 21:52:00 Medical Branch AMMONIA, PLASMA 2023-04-28 [facility] 21:17:00 Medical Branch COMP. METABOLIC PANEL ([id number]) 2023-04-28 Marlon Williamson [facility] 21:16:00 Medical Branch CBC WITH DIFF 2023-04-28 Clay [facility] exas 21:16:00 [facility] MYELIN BASIC PROTEIN 2023-04-28 Clay [facility] 18:30:00 [facility] BODY FLUID DIRECT COUNT 2023-04-28 Clay [facility] 18:30:00 [facility] CSF/PRODUCTION SAMPLER SHUNT CULTURE 2023-04-28 Clay [facility] 18:30:00 [facility] CYTO SPINAL FLUID 2023-04-28 Clay [facility] 18:30:00 [facility] MISCELLANEOUS SEND OUT TEST 2023-04-28 Clay [facility] 18:30:00 [facility] EXTRA TUBE CSF 2023-04-28 Clay [facility] exas 18:30:00 [facility] CSF CULTURE 2023-04-28 Clay [facility] exas 18:30:00 [facility] MENINGITIS/ENCEPHALITIS PANEL 2023-04-28 Clay Marlon [facility] BY PCR 18:30:00 [facility] POCT GLUCOSE (AUTOMATED) 2023-04-28 Tyrone [facility] 16:43:00 [facility] CEREBROSPINAL FLUID PROTEIN 2023-04-28 Clay [facility] 16:30:00 [facility] CEREBROSPINAL FLUID GLUCOSE 2023-04-28 Clay [facility] 16:30:00 [facility] POCT GLUCOSE (AUTOMATED) 2023-04-28 Tyrone [facility] 13:08:00 [facility] POCT GLUCOSE (AUTOMATED) 2023-04-28 Tyrone [facility] 01:35:00 [facility] POCT GLUCOSE (AUTOMATED) 2023-04-27 Tyrone [facility] 23:09:00 [facility] VITAMIN B12, LEVEL 2023-04-27 Elsandeep, [facility] 20:31:00 [facility] FOLATE 2023-04-27 [facility] 20:31:00 [facility] PROTHROMBIN TIME / INR 2023-04-27 Jeimy [facility] 20:31:00 [facility] POCT GLUCOSE (AUTOMATED) 2023-04-27 Tyrone [facility] 16:41:00 [facility] POCT GLUCOSE (AUTOMATED) 2023-04-27 [facility] 14:28:00 [facility] URINE DRUG (IMMUNOASSAY) - 2023-04-27 [facility]PREHENSIVE DR[facility] SCREEN 14:17:00 [facility] POCT GLUCOSE (AUTOMATED) 2023-04-27 [facility] 14:05:00 [facility] POCT GLUCOSE (AUTOMATED) 2023-04-27 [facility] 02:32:00 [facility] POCT GLUCOSE (AUTOMATED) 2023-04-26 [facility] 22:39:00 [facility] POCT GLUCOSE (AUTOMATED) 2023-04-26 [facility] 20:05:00 [facility] MR BRAIN W WO CONTRAST WITH 2023-04-26 Osbaldo Garcia [facility] NEUROQUANT 19:40:00 [facility] POCT GLUCOSE (AUTOMATED) 2023-04-26 [facility] 13:09:00 [facility] PHOSPHORUS 2023-04-26 [facility] 11:23:00 [facility] THYROID STIMULATING HORMONE 2023-04-26 [facility] 11:23:00 [facility] HEPATIC FUNCTION PANEL 2023-04-26 Jeimy [facility] ([id number]) (ALB,T.PRO,BILI 11:23:00 [facility] T,BU/BC,ALT,AST,ALK PHOS) LIPID PANEL ([id number])(TOTAL 2023-04-26 Jeimy [facility] CHOLESTEROL, TRIGLYCERIDES, 11:23:00 [facility] HDL) GLYCOSYLATED HEMOGLOBIN (A1C) 2023-04-26 Jeimy, [facility] 11:23:00 [facility] MISCELLANEOUS SEND OUT TEST 2023-04-26 [facility] 11:23:00 [facility] EXTRA TUBE LAV 2023-04-26 [facility] 11:23:00 [facility] EXTRA TUBE LT. GREEN 2023-04-26 [facility] 11:23:00 [facility] XR CHEST 1 VW 2023-04-26 Osbaldo Garcia, [facility] ex[facility] 08:30:00 [facility] PHOSPHORUS 2023-04-26 Osbaldo Garcia, [facility] 07:50:00 [facility] MAGNESIUM 2023-04-26 Osbaldo Antunezcedo, [facility] ex 07:50:00 [facility] BASIC METABOLIC PANEL (NA, K, 2023-04-26 Osbaldo Garcia, [facility] CL, CO2, GLUCOSE, BUN, 07:50:00 [facility] ran CREATININE, CA) CBC WITH DIFF 2023-04-26 [facility] 07:50:00 [facility] URINE DRUG (IMMUNOASSAY) - 2023-04-26 Eunice [facility] COMPREHENSIVE DRUG SCREEN W/O 01:41:00 Nh dical Branch REFLEX ELECTROENCEPHALOGRAM 2023-04-26 [facility] 00:00:[address] [facility] [address] HEAD WO CONTRAST 2023-04-25 [facility] 23:51:39 [facility] URINALYSIS 2023-04-25 [facility] 23:30:00 [facility] AMMONIA, PLASMA 2023-04-25 [facility] 23:00:00 [facility] COMP. METABOLIC PANEL ([id number]) 2023-04-25 [facility] 23:00:00 [facility] CARBAMAZEPINE 2023-04-25 [facility] 23:00:00 [facility] VALPROIC ACID, FREE 2023-04-25 [facility] 23:00:00 [facility] CBC WITH DIFF 2023-04-25 [facility] 23:00:00 [facility] SYPHILIS IGG/IGM 2023-04-25 Susan Munson [facility] ex 23:00:00 [facility] HB ECG ROUTINE & RHYTHM STRIP 2023-04-25 [facility] 22:45:21 Medical Branch CONSENT/REFUSAL FOR DIAGNOSIS 2023-04-25 Doctor Cabrera, [facility] AND TREATMENT 22:25:29 [place] [facility] [place] H[facility]PITAL ADMISSION 2023-04-25 Doctor Cabrera, [facility] 05:01:00 [place] [facility] [place] CARBAMAZEPINE 2023-04-15 Paul Ferrell [facility] xa 03:28:00 Medical Branch VALPROIC ACID, TOTAL 2023-04-15 Ghassan [facility] 03:28:00 Medical [facility] MAGNESIUM 2023-04-15 Ghassan [facility] xa 03:10:00 Medical Branch COMP. METABOLIC PANEL ([id number]) 2023-04-15 [facility] 03:10:00 Medical [facility] CBC WITH DIFF 2023-04-15 Ghassan [facility] xa 03:10:00 Medical Branch XR CHEST 1 VW 2023-02-21 Maren Owens [facility] xa 14:17:50 Medical Branch MAGNESIUM 2023-02-21 Maren Owens [facility] xa 13:55:00 Medical Branch TROPONIN I 2023-02-21 Maren Owens [facility] 13:55:00 Medical Branch COMP. METABOLIC PANEL ([id number]) 2023-02-21 Maren Owens [facility] 13:55:00 Medical Branch CBC WITH DIFF 2023-02-21 Maren Owens [facility] 13:55:00 Medical Branch N-TERMINAL PRO-BNP 2023-02-21 Maren Owens [facility] 13:55:00 Medical Branch ASSIGNMENT OF BENEFITS 2022-11-27 Doctor Alenassshelia, [facility] 14:16:04 [place] [facility] [place] History of cholecystectomy Memor aminta Vyas Procedure<sup>1</sup> [facility] Encounters Start End Encounter Admission Attending Care Care Encounter Source Date/Time Date/Time Type Type Clinicians Facility Department ID 2023-06-26 2023-06-26 YARI Ambrocio [id number] Univers 00:00:00 00:00:00 Swivel [id number] it y of [place] [id number] Messi as MIRANDA?BLEA [id number] [address] OFFICE [facility] 2023 2023 [facility] [id number] Univers 00:00:00 00:00:[address] [facility] [id number] it y of [place] [id number] Messi as MIRANDA?BLEA [phone] [address] OFFICE [facility] 2023-06-14 2023-06-14 Telephone [facility] 1.2.840.114 [id number] Univers 00:00:00 00:00:00 [facility] 350.1.13.10 ity of [facility] 4.2.7.2.686 Messi as MIRANDA?BLEA [phone] [address] 2023-05-29 2023-05-29 Outpatient [facility] [id number] Univers 13:00:00 13:51:40 [facility] 2023-05-29 2023-05-29 Office [facility] 1.2.840.114 [id number] Univers 13:00:00 13:51:[address] [facility] 350.1.13.10 it y of [place] 4.2.7.2.686 Messi as MIRANDA?BLEA [phone] [address] OFFICE [facility] 2023-05-28 2023-05-28 Outpatient JOHNY HAUSER [facility] [id number] Univers 08:20:00 08:20:00 JOHNY NEVILLE [facility] 2023-05-21 2023-05-21 Outpatient JOHNY HAUSER [facility] [id number] Univers 14:00:00 14:00:00 JOHNY NEVILLE [facility] 2023-05-21 2023-05-21 Telephone [facility] 1.2.840.114 [id number] Univers 00:00:00 00:00:00 [facility] 350.1.13.10 ity of [facility] 4.2.7.2.686 Messi as MIRANDA?BLEA [phone] Nh manuelito [place] [id number] [place] [facility] 2023-05-20 2023-05-20 Outpatient GC_BAHC_Zel PRIV PRIV [id number] [facility] 00:00:00 00:00:00 lner_K [id number] Medica l 2023-05-20 2023-05-20 Outpatient GC_BAHC_Zel PRIV PRIV [id number] [facility] 00:00:00 00:00:00 lner_K [id number] Medica l 2023-05-09 2023-05-09 Outpatient GC_BAHC_Zel PRIV PRIV [id number] [facility] 00:00:00 00:00:00 lner_K [id number] Medica l 2023-05-09 2023-05-09 Outpatient GC_BAHC_Zel PRIV PRIV [id number] [facility] 00:00:00 00:00:00 lner_K [id number] Medica l 2023-05-09 2023-05-09 Outpatient GC_BAHC_Zel PRIV PRIV 275 [id number] [facility] 00:00:00 00:00:00 lner_K [id number] Medica l 2023-05-09 2023-05-09 Outpatient GC_BAHC_Zel PRIV PRIV 275 [id number] [facility] 00:00:00 00:00:00 lner_K [id number] Medica l 2023-05-08 2023-05-08 Transition AJITH Hernandez 1.2.840.114 [id number] Univers 00:00:00 00:00:00 of Jorge MARC 350.1.13.10 [place] of [place] [phone] [facility] [address] 2023-05-05 2023-05-06 [facility] Ryan Boone 1.2.840. 114 [id number] Univers 22:03:00 12:32:00 Encounter Clifford Vasquez 350.1.13.1 0 ity of [facility] 4.2. 7.2.686 [place] [phone] [facility] [address] 2023-05-05 2023-05-06 Outpatient X IRA LOPEZ [facility]LE[facility] [id number] Univers 22:03:00 12:32:00 IRA LOPEZ [facility] 2023-04-25 2023-05-05 Inpatient X IRA LOPEZ [facility] [id number] Univers 17:30:00 18:30:00 IRA LOPEZ [facility] 2023-04-25 2023-05-05 [facility] Eunice [place] 1.2.84 0.114 [id number] [facility] 17:30:00 18:30:00 Encounter Amena Murphy [place] 350.1.13.10 ity of [facility] 4.2.7.2.686 [place] Ira Lopez [id number] 2023-05-02 2023-05-02 [facility] 1.2.840.114 [id number] Univers 00:00:00 00:00:00 [facility] 350.1.13.10 ity of [place] 4.2.7.2.686 Messi as MIRANDA?BLEA [phone] [address] OFFICE [facility] 2023-04-21 2023-04-21 [facility] 1.2.840.114 [id number] Univers 00:00:00 00:00:00 [facility] 350.1.13.10 ity of [place] 4.2.7.2.686 Messi as MIRANDA?BLEA [phone] [address] OFFICE [facility] 2023-04-14 2023-04-15 Emergency X JUDIT [facility] ERT [id number] Univers 21:46:00 02:01:00 AMENA guerrero [facility] 2023-04-14 2023-04-15 Emergency Paul Ferrell [facility] 1.2.840. 114 [id number] Univers 21:46:00 02:01:00 Amena Murphy [place] 350.1.13.10 ity of [place] 4.2.7.2.[place] [id number] [address] 2023-03-29 2023-03-29 [facility] 1.2.840.114 [id number] Univers 00:00:00 00:00:00 [facility] 350.1.13.10 ity of [place] 4.2.7.2.686 Messi as MIRANDA?BLEA [id number] [address] 2023-03-06 2023-03-06 Outpatient R ZULLY [facility] [id number] Univers 11:30:00 11:39:[address] of [facility] 2023-03-06 2023-03-06 Office [facility] 1.2.840.114 [id number] Univers 11:30:00 11:39:[address] [facility] 350.1.13.10 it y of [place] 4.2.7.2.686 Messi as MIRANDA?BLEA [id number] [address] 2023-02-21 2023-02-21 Emergency X ROMAN, K [facility] ERT [id number] Univers 08:46:00 12:16:[address] [facility] 2023-02-21 2023-02-21 Emergency Maren Owens [facility] 1.2.840.114 [id number] Univers 08:46:00 12:16:00 Altagraciadavid NARVAEZ 350.1.13.10 i ty of [place] 4.2.7.2.686 [place] [facility] [id number] [address] 2023-02-13 2023-02-13 [facility] 1.2.840.114 [id number] Univers 00:00:00 00:00:00 [facility] 350.1.13.10 ity of [place] 4.2.7.2.686 Messi as MIRANDA?BLEA [id number] [address] 2023-01-25 2023-01-25 Booker NevilleUNM [facility] 1.2.840.114 [id number] Univers 00:00:00 00:00:00 [facility] 350.1.13.10 ity of [place] 4.2.7.2.686 Messi as MIRANDA?BLEA [id number] [address] OFFICE [facility] 2022-12-12 2022-12-12 Refill Jamin [facility] 1.2.840.114 [id number] Univers 00:00:00 00:00:00 [facility] 350.1.13.10 ity of [place] 4.2.7.2.686 Messi as MIRANDA?BLEA [id number] [address] OFFICE [facility] 2022-12-05 2022-12-05 Telephone Jamin [facility] 1.2.840.114 [id number] Univers 00:00:00 00:00:00 [facility] 350.1.13.10 ity of [place] 4.2.7.2.686 Messi as MIRANDA?BLEA [id number] [address] 2022-11-27 2022-11-27 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 10 ity of [place] 4.2.7.2.686 Messi as MIRANDA?BLEA [id number] [address] OFFICE [facility] 2022-11-27 2022-11-27 Outpatient R JOHNY NEVILLE [facility] [id number] Univers 08:00:00 08:51:04 [facility] 2022-[facility]-27 2022-11-27 Office [facility] 1.2.840.114 [id number] Univers 08:00:00 08:51:04 Visit [facility] 350.1.13.10 ity of [place] 4.2.7.2.686 Messi as MIRANDA?BLEA [id number] [address] OFFICE [facility] 2022-11-27 2022-11-27 Orders Doctor BORDEN 1.2.840.114 [id number] Univers 00:00:00 00:00:00 Only Unassigned, MIRTA 350.1.13.10 ity of [facility] 4.2.7.2.686 Messi as [id number] [address] 2022-11-24 2022-11-24 Refbrenton NevilleUNM [facility] 1.2.840.114 [id number] Univers 00:00:00 00:00:00 [facility] 350.1.13.10 ity of [place] 4.2.7.2.686 Messi as MIRANDA?BLEA [phone] [address] OFFICE [facility] 2022-11-24 2022-11-24 [facility] 1.2.840.114 [id number] Univers 00:00:00 00:00:00 [facility] 350.1.13.10 ity of [place] 4.2.7.2.686 Messi as MIRANDA?BLEA [id number] [address] 2022-11-24 2022-11-24 [facility] 1.2.840.114 [id number] Univers 00:00:00 00:00:00 [facility] 350.1.13.10 ity of [place] 4.2.7.2.686 Messi as MIRANDA?BLEA [id number] [address] 2022-10-08 2022-10-08 [facility] 1.2.840.114 [id number] Univers 00:00:00 00:00:00 [facility] 350.1.13.10 ity of [place] 4.2.7.2.686 Messi as MIRANDA?BLEA [phone] [address] 2022-09-25 2022-09-25 Booker [facility] 1.2.840.114 [id number] Univers 00:00:00 00:00:00 [facility] 350.1.13.10 ity of [place] 4.2.7.2.686 Messi as MIRANDA?BLEA [id number] [address] 2022-09-25 2022-09-25 [facility] NevilleUN[facility] 1.2.840.114 [id number] Univers 00:00:00 00:00:00 Johny Gene [facility] 350.1.13.10 ity of [place] 4.2.7.2.686 Messi as MIRANDA?BLEA [id number] [address] 2022-09-25 2022-09-25 [place] [facility]UN[facility] 1.2.840.114 [id number] Univers 00:00:00 00:00:00 Johny Gene [facility] 350.1.13.10 ity of [place] 4.2.7.2.686 Messi as MIRANDA?BLEA [phone] [address] 2022-08-28 2022-08-28 [facility]illeUN[facility] 1.2.840.114 [id number] Univers 00:00:00 00:00:00 [facility] 350.1.13.10 ity of [place] 4.2.7.2.686 Messi as MIRANDA?BLEA [id number] [address] 2022-08-22 2022-08-22 [facility] 1.2.840.114 [id number] Univers 00:00:00 00:00:00 [facility] 350.1.13.10 ity of [place] 4.2.7.2.686 Messi as MIRANDA?BLEA [id number] [address] 2022-06-25 2022-06-25 [facility] JayBuff[facility] 1.2.840.114 [id number] Univers 00:00:00 00:00:00 [facility] 350.1.13.10 ity of [place] 4.2.7.2.686 Messi as MIRANDA?BLEA [phone] [address] 2022-06-18 2022-06-18 [facility] NevilleUN[facility] 1.2.840.114 [id number] Univers 00:00:00 00:00:00 Johny Gene [facility] 350.1.13.10 ity of [place] 4.2.7.2.686 Messi as MIRANDA?BLEA [phone] [address] OFFICE [facility] 2022-06-15 2022-06-15 Outpatient SAIGEREEN_STEFANIE [facility]AS [facility] [address]61 [place] 00:00:00 00:00:00 BLACKSerjio 0728 da [facility] 2022-05-26 2022-05-26 Outpatient JOHNY HAUSER [facility] [id number] Univers 10:40:00 13:19:01 [facility]IL[facility] 2022-05-26 2022-05-26 Office [facility] 1.2.840.114 [id number] Univers 10:40:00 13:19:01 Visit [facility] 350.1.13.10 ity of [place] 4.2.7.2.686 Messi as MIRANDA?BLEA [phone] [address] 2022-05-26 2022-05-26 Outpatient JOHNY HAUSER [facility] [id number] Univers 10:40:00 13:19:01 [facility]EVIL[facility] 2022-05-26 2022-05-26 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 10 ity of [place] 4.2.7.2.686 Messi as MIRANDA?BLEA [phone] [address] OFFICE [facility] 2022-05-25 2022-05-25 Refbrenton NevilleUNM [facility] 1.2.840.114 [id number] Univers 00:00:00 00:00:00 [facility] 350.1.13.10 ity of [place] 4.2.7.2.686 Messi as MIRANDA?BLEA [id number] [address] OFFICE [facility] 2022-05-24 2022-05-24 Refbrenton NevilleUNM [facility] 1.2.840.114 [id number] Univers 00:00:00 00:00:00 [facility] 350.1.13.10 ity of [place] 4.2.7.2.686 Messi as MIRANDA?BLEA [id number] [address] 2022-05-23 2022-05-23 [facility] 1.2.840.114 [id number] Univers 00:00:00 00:00:00 [facility] 350.1.13.10 ity of [place] 4.2.7.2.686 Messi as MIRADNA?BLEA [phone] [address] 2022-05-08 2022-05-08 Telephone [facility] 1.2.840.114 [id number] Univers 00:00:00 00:00:00 [facility] 350.1.13.10 ity of [place] 4.2.7.2.686 Messi as MIRANDA?BLEA [id number] [address] 2022-05-08 2022-05-08 [facility] 1.2.840.114 [id number] Univers 00:00:00 00:00:00 [facility] 350.1.13.10 ity of [place] 4.2.7.2.686 Messi as MIRANDA?BLEA [id number] [address] 2022-05-08 2022-05-08 Telephone [facility] 1.2.840.114 [id number] Univers 00:00:00 00:00:00 [facility] 350.1.13.10 ity of [place] 4.2.7.2.686 Messi as MIRANDA?BLEA [id number] [address] 2022-04-25 2022-04-25 [facility] 1.2.840.114 [id number] Univers 00:00:00 00:00:00 [facility] 350.1.13.10 ity of [place] 4.2.7.2.686 Messi as MIRANDA?BLEA [id number] [address] 2022-04-21 2022-04-21 Refbrenton NevilleUNM [facility] 1.2.840.114 [id number] Univers 00:00:00 00:00:00 [facility] 350.1.13.10 ity of [place] 4.2.7.2.686 Messi as MIRANDA?BLEA [id number] [address] 2022-04-10 2022-04-10 Refbrenton NevilleUNM [facility] 1.2.840.114 [id number] Univers 00:00:00 00:00:00 [facility] 350.1.13.10 ity of [place] 4.2.7.2.686 Messi as MIRANDA?BLEA [id number] [address] 2022-04-06 2022-04-06 CAV Nilsa 2.16.840. 2.16.840.1. CLAC [id number] [facility] 13:30:00 15:00:00 Teodoro 1.445360. 260235.4.6. 2E Medical 4.6.20311 [id number] 2022-04-05 2022-04-05 Outpatient Williams_V DMG DMG 1127 Dev[facility] 12:22:00 12:22:00 [id number] Medica l Group 2022-03-31 2022-03-31 Refbrenton NevilleUNM [facility] 1.2.840.114 [id number] Univers 00:00:00 00:00:00 [facility] 350.1.13.10 ity of [place] 4.2.7.2.686 Messi as MIRANDA?BLEA [id number] [address] 2022-03-31 2022-03-31 Refbrenton NevilleUNM [facility] 1.2.840.114 [id number] Univers 00:00:00 00:00:00 [facility] 350.1.13.10 ity of [place] 4.2.7.2.686 Messi as MIRANDA?BLEA [phone] [address] 2022-03-31 2022-03-31 Refbrenton NevilleUNM [facility] 1.2.840.114 [id number] Univers 00:00:00 00:00:00 [facility] 350.1.13.10 ity of [place] 4.2.7.2.686 Messi as MIRANDA?BLEA [id number] [address] 2022-03-29 2022-03-29 Deshaun NevilleUNM [facility] 1.2.840.114 [id number] Univers 00:00:00 00:00:00 [facility] 350.1.13.10 ity of [place] 4.2.7.2.686 Messi as MIRANDA?BLEA [id number] [address] 2022-03-28 2022-03-28 [facility] NevilleUN[facility] 1.2.840.114 [id number] Univers 00:00:00 00:00:00 [facility] 350.1.13.10 ity of [place] 4.2.7.2.686 Messi as MIRANDA?BLEA [phone] [address] 2022-03-26 2022-03-26 [facility] 1.2.840.114 [id number] Univers 00:00:00 00:00:00 [facility] 350.1.13.10 ity of [place] 4.2.7.2.686 Messi as MIRANDA?BLEA [id number] [address] 2022-03-25 2022-03-25 [facility] 1.2.840.114 [id number] Univers 00:00:00 00:00:00 [facility] 350.1.13.10 ity of [place] 4.2.7.2.686 Messi as MIRANDA?BLEA [id number] [address] 2022-03-24 2022-03-24 [place] [facility]UN[facility] 1.2.840.114 [id number] Univers 00:00:00 00:00:00 [facility] 350.1.13.10 ity of [place] 4.2.7.2.686 Messi as MIRANDA?BLEA [id number] Nh manuelito JJ[address] 2022-03-24 2022-03-24 Telephone [facility] 1.2.840.114 [id number] Univers 00:00:00 00:00:00 [facility] 350.1.13.10 ity of [facility] 4.2.7.2.686 Messi as MIRANDA?BLEA [phone] [facility] PARVIZ[address] 2022-03-23 2022-03-23 [facility] 1.2.840.114 [id number] Univers 00:00:00 00:00:00 [facility] 350.1.13.10 ity of [facility] 4.2.7.2.686 Messi as MIRANDA?BLEA [id number] [address] 2022-03-21 2022-03-21 [address] Williams_V [facility] 1127 Devoted 12:25:00 12:25:00 [id number] Medica l Group 2022-03-20 2022-03-20 Telephone [facility] 1.2.840.114 [id number] Univers 00:00:00 00:00:00 [facility] 350.1.13.10 ity of [facility] 4.2.7.2.686 Messi as MIRANDA?BLEA [phone] [facility] PARVIZ[address] 2022-02-25 2022-02-25 [facility] 1.2.840.114 [id number] Univers 00:00:00 00:00:00 [facility] 350.1.13.10 ity of [place].2.[place] PROFESS[place] [id number] [facility] [address] 2022-02-20 2022-02-20 [facility] [id number]- Devoted 09:01:00 09:01:00 [id number] Medica l Group 2022-02-08 2022-02-08 Telephone [facility] 1.2.840.114 [id number] Univers 00:00:00 00:00:00 [facility] 350.1.13.10 ity of [facility] 4.2.7.2.686 Messi as MIRANDA?BLEA [id number] [address] 2022-01-26 2022-01-26 [facility] 1.2.840.114 [id number] Univers 00:00:00 00:00:00 Johny NARVAEZ 350.1.13.10 ity of [facility] 4.2.7.2.[place] PROF[place] [id number] [address] 2022-01-26 2022-01-26 [facility] 1.2.840.114 [id number] Univers 00:00:00 00:00:00 Johny [facility] 350.1.13.10 ity of [facility] 4.2.[place].2.[place] [id number] [address] 2021-11-25 2021-11-25 [facility] 1.2.840.114 [id number] Univers 00:00:00 00:00:00 Johny [facility] 350.1.13.10 ity of [facility] 4.2.[place].2.[place] [id number] [address] 2021-11-22 2021-11-22 [facility] 1.2.840.114 [id number] Univers 00:00:00 00:00:00 Johny [facility] 350.1.13.10 ity of [facility] 4.2.[place].2.[place] PROF[place] [id number] [address] 2021-11-14 2021-11-14 [facility] 1.2.840.114 [id number] Univers 00:00:00 00:00:00 Johny [facility] 350.1.13.10 ity of [facility] 4.2.7.2.686 Messi as MIRANDA?BLEA [id number] [address] 2021-09-20 2021-09-20 Refill [facility]UN[facility] 1.2.840.114 [id number] Univers 00:00:00 00:00:00 Johny NARVAEZ 350.1.13.10 ity of [place] 4.[place].2.[place] [id number] [address] 2021-08-29 2021-08-29 Refill [facility]UN[facility] 1.2.840.114 [id number] Univers 00:00:00 00:00:00 Johny Narvaez 350.1.13.10 ity of [place].2.[place] [phone] [address] 2021-08-19 2021-08-19 Telephone [facility]UN[facility] 1.2.840.114 [id number] Univers 00:00:00 00:00:00 Johny Narvaez 350.1.13.10 [place] of [place].2.[place] [phone] [address] 2021-06-28 2021-06-28 Outpatient JOHNY HAUSER [facility] [id number] Univers 16:20:00 16:20:00 [facility] 2021-05-25 2021-05-25 Refill [facility] 1.2.840.114 [id number] Univers 00:00:00 00:00:00 Johny Narvaez 350.1.13.10 ity of [place].2.[place] Profess[place] [id number] [address] 2021-05-20 2021-05-20 Office [facility] 1.2.840.114 [id number] Univers 15:01:59 16:19:48 Visit Johny Narvaez 350.1.13.10 ity of [place].2.[place] Profess[place] [id number] [address] 2021-05-20 2021-05-20 Outpatient JOHNY HAUSER [facility] [id number] Univers 15:00:00 15:00:00 JOHNY NEVILLEabby [facility] 2017-10-21 2017-10-21 Emergency [facility] [id number] Memoria 14:04:00 17:28:[address] 2017-10-21 2017-10-21 Emergency [facility] [id number] Memoria 14:04:00 17:28:[address] 2017-10-21 2017-10-21 Outpatient Brad, JED9 9 [id number] 675 08:04:00 11:28:00 Amada 00 Results Test Description Test Time Test Comments Results Result Comments Source POCT GLUCOSE (AUTOMATED) 2023-05-06 16:46:46 Test Item Value Reference Range Interpretation Comme nts POCT GLU (test code = 4371904333) 155 mg/dL 70-110 H Lab Interpretation (test code = 14047-5) [facility]normal [facility] [id number] 14:50:33 Test Item Value Reference Range Interpretation Comments CK (test code = 8680936419) 70 U/L 33-194 Lab Interpretation (test code = Normal 36239-9) [facility]2023-05-06 13:01:04 Test Item Value Reference Range Interpretation Comments POCT GLU (test code = 9395113966) 98 mg/dL 70-110 Lab Interpretation (test code = Normal 20495-2) [facility] CenterVALPROIC ACID, [id number] 05:01:38 Test Item Value Reference Range Interpretation Comments Valproic Acid, Free 15.8 ug/mL 4.0-15.0 H (test code = 8795920465) LORE (test code = LORE) Toxic Range: ? Greater than 15 ug/mL Test developed and characteristics determined by [facility] Laboratory Services. Lab Interpretation Abnormal (test code = 64626-3) [facility]CBC [facility] [id number] 04:23:44 Test Item Value Reference Range Interpretation Comments WBC (test code = 6.24 See_Comment [Automated 6690-2) message] The sy stem which generated this result transmitted reference range : 4.20 - 10.70 10*3/?L. The reference range was not used to interpret this result as normal/abnormal . RBC (test code = 3.98 See_Comment L [Automated 789-8) message] The sy stem which generated this result transmitted reference range : 4.26 - 5.52 10*6/?L. The reference range was not used to interpret this result as normal/abnormal . HGB (test code = 11.8 g/dL 12.2-16.4 L 718-7) HCT (test code = 35.5 % 38.4-49.3 L 4544-3) MCV (test code = 89.2 fL 81.7-95.6 787-2) MCH (test code = 29.6 pg 26.1-32.7 785-6) MCHC (test code = 33.2 g/dL 31.2-35.0 786-4) RDW-SD (test code = 42.3 fL 38.5-51.6 76867-4) RDW-CV (test code = 13.0 % 12.1-15.4 788-0) PLT (test code = 174 See_Comment [Automated 777-3) message] The sy stem which generated this result transmitted reference range : 150 - 328 10*3/ ?L. The reference r robbie was not used to interpret this result as normal/abnormal . MPV (test code = 8.5 fL 9.8-13.0 L 59878-8) NRBC/100 WBC (test 0.0 See_Comment [Automat ed code = [id number]) message] The system which generated this result transmitted reference range : 0.0 - 10.0 /100 WBCs. The refer ence range was not u sed to interpret th is result as normal/abnormal . NRBC x10^3 (test code See_Comment [Auto mated = [id number]) message] The s ystem which generated this result transmitted reference range : 10*3/?L. The reference range was not used to interpret this result as normal/abnormal . GRAN MAT (NEUT) % 57.1 % (test code = 770-8) IMM GRAN % (test code 2.40 % = 9349882930) LYMPH % (test code = 30.0 % 736-9) MONO % (test code = 8.7 % 5905-5) EOS % (test code = 1.3 % 713-8) BASO % (test code = 0.5 % 706-2) GRAN MAT x10^3(ANC) 3.57 10*3/uL 1.99-6.95 (test code = 5782982657) IMM GRAN x10^3 (test 0.15 10*3/uL 0.00-0.06 H code = 4075166930) LYMPH x10^3 (test code 1.87 10*3/uL 1.09-3.23 = 731-0) MONO x10^3 (test code 0.54 10*3/uL 0.36-1.02 = 742-7) EOS x10^3 (test code = 0.08 10*3/uL 0.06-0.53 711-2) BASO x10^3 (test code 0.03 10*3/uL 0.01-0.09 = 704-7) Lab Interpretation Abnormal (test code = 26395-1) [facility] CenterCOMP[facility] (70456)2023-05-06 04:08:41 Test Item Value Reference Range Interpretation Comments NA (test code = 132 mmol/L 135-145 L [id number]) K (test code = 4.2 mmol/L 3.5-5.0 7633976983) CL (test code = 98 mmol/L 98-108 7123461338) CO2 TOTAL (test code = 27 mmol/L 23-31 0030848754) AGAP (test code = 7 2-16 1636058197) BUN (test code = 16 mg/dL 7-23 9847638577) GLUCOSE (test code = 104 mg/dL 70-110 7373172274) CREATININE (test code = 0.68 mg/dL 0.60-1.25 3527547309) TOTAL BILI (test code = 0.1 mg/dL 0.1-1.0 9105277307) CALCIUM (test code = 8.0 mg/dL 8.6-10.6 L 2542976875) T PROTEIN (test code = 5.9 g/dL 6.3-8.2 L 1789107725) ALBUMIN (test code = 3.3 g/dL 3.5-5.0 L 4951362495) ALK PHOS (test code = 81 U/L 34-122 3632089336) ALTv (test code = 15 U/L 5-50 1742-6) AST(SGOT) (test code = 21 U/L 13-40 3932485529) eGFR (test code = 121.5 mL/min/1.73m2 5872946795) LORE (test code = LORE) Association of Glomerular Filtration Rate (GFR) and Staging of Kidney Disease* + --+ --+ ------+| GFR (mL/min/1.73 m2) ?| With Kidney Damage ?| ?Without Kidney Damage+ --------+ --------+ +| ?>90 ?| ?Stage one ?| ? Normal ?+ ---+ ---+ -------+| ?60-89 ?| ?Stage two ?| ? Decreased GFR ? + --+ --+ ------+| ?30-59 ?| ?Stage three ?| ? Stage three ? + --+ --+ ------+| ?15-29 ?| ?Stage four ? | ? Stage four ?+ ---+ ---+ -------+| ?<15 (or dialysis) ? ?| ?Stage five ? | ? Stage five ?+ ---+ ---+ -------+ *Each stage assumes the associated GFR level has been in effect for at least three months. ?Stages 1 to 5, with or without kidney disease, indicate chronic kidney disease. Notes: Determination of stages one and two (with eGFR >59mL/min/1.73 m2) requires estimation of kidney damage for at least three months as defined by structural or functional abnormalities of the kidney, manifested by either:Pathological abnormalities or Markers of kidney damage (including abnormalities in the composition of the blood or urine or abnormalities in imaging tests). Lab Interpretation Abnormal (test code = 50304-2) [facility] GLUCOSE (AUTOMATED)2023-05-06 03:10:28 Test Item Value Reference Range Interpretation Comments POCT GLU (test code = 9078840811) 96 mg/dL 70-110 Lab Interpretation (test code = Normal 96484-4) [facility] GLUCOSE (AUTOMATED)2023-05-05 22:01:14 Test Item Value Reference Range Interpretation Comments POCT GLU (test code = 0997258410) 159 mg/dL 70-110 H Lab Interpretation (test code = Abnormal 05083-2) [facility] 16:38:46 Test Item Value Reference Range Interpretation Comments POCT GLU (test code = 5261827986) 139 mg/dL 70-110 H Lab Interpretation (test code = Abnormal 25209-8) [facility] GLUCOSE (AUTOMATED)2023-05-05 13:02:37 Test Item Value Reference Range Interpretation Comments POCT GLU (test code = 4848029684) 118 mg/dL 70-110 H Lab Interpretation (test code = Abnormal 08387-7) [facility] GLUCOSE (AUTOMATED)2023-05-05 01:26:36 Test Item Value Reference Range Interpretation Comments POCT GLU (test code = 3955191525) 128 mg/dL 70-110 H Lab Interpretation (test code = Abnormal 93130-6) [facility] GLUCOSE (AUTOMATED)2023-05-04 22:15:22 Test Item Value Reference Range Interpretation Comments POCT GLU (test code = 1608344797) 120 mg/dL 70-110 H Lab Interpretation (test code = Abnormal 17975-0) [facility] GLUCOSE (AUTOMATED)2023-05-04 16:33:34 Test Item Value Reference Range Interpretation Comments POCT GLU (test code = 6506824843) 170 mg/dL 70-110 H Lab Interpretation (test code = Abnormal 88203-0) [facility] GLUCOSE (AUTOMATED)2023-05-04 13:09:51 Test Item Value Reference Range Interpretation Comments POCT GLU (test code = 2653835386) 98 mg/dL 70-110 Lab Interpretation (test code = Normal 06117-2) [facility] GLUCOSE (AUTOMATED)2023-05-04 01:06:07 Test Item Value Reference Range Interpretation Comments POCT GLU (test code = 1607726083) 138 mg/dL 70-110 H Lab Interpretation (test code = Abnormal 29164-9) [facility] GLUCOSE (AUTOMATED)2023-05-03 21:30:36 Test Item Value Reference Range Interpretation Comments POCT GLU (test code = 5209268137) 106 mg/dL 70-110 Lab Interpretation (test code = Normal 50508-0) [facility] GLUCOSE (AUTOMATED)2023-05-03 16:50:22 Test Item Value Reference Range Interpretation Comments POCT GLU (test code = 8423673548) 233 mg/dL 70-110 H Lab Interpretation (test code = Abnormal 66260-9) [facility] GLUCOSE (AUTOMATED)2023-05-03 12:53:56 Test Item Value Reference Range Interpretation Comments POCT GLU (test code = 4524798934) 112 mg/dL 70-110 H Lab Interpretation (test code = Abnormal 14269-2) [facility]. 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 Test Item Value Reference Range Interpretation Comments Miscellaneous Test (test See scanned report code = 2738531431) Performing Lab (test code [facility]UP = 8134078944) [facility] GLUCOSE (AUTOMATED)2023-05-03 01:56:10 Test Item Value Reference Range Interpretation Comments POCT GLU (test code = 146 mg/dL 70-110 H Notifi ed Provider [id number]) Lab Interpretation (test Abnormal code = 81582-6) [facility] GLUCOSE (AUTOMATED)2023-05-02 22:05:34 Test Item Value Reference Range Interpretation Comments POCT GLU (test code = 2292188960) 118 mg/dL 70-110 H Lab Interpretation (test code = Abnormal 02236-4) [facility] GLUCOSE (AUTOMATED)2023-05-02 17:01:26 Test Item Value Reference Range Interpretation Comments POCT GLU (test code = 0497264379) 144 mg/dL 70-110 H Lab Interpretation (test code = Abnormal 47800-2) [facility] [id number] 16:54:54 Test Item Value Reference Range Interpretation Comments Case Report (test code = Non-Gynecologic 6108266350) Cytology ?Case: [id number] ?Authorizing Provider: ?Jesús Coulter MD ?Collected: ? 04/28/2023 1330 ?Ordering Location: ? ? Neurology/Neurologica l ? ? Received: ?04/30/2023912 ? Surgery (PRAVEENA 11B) ?Pathologist: ? He, Alma, MD ? Specimen: ? ?LUMBAR PUNCTURE, CSF ? Final Diagnosis (test u7cggLRyRFRwl7eqOJHnu code = 8575670109) GFuZzEwMzNcZnRuYmpcdW MxIHtccnRmMVxlcGljMTA tPRtwXS1lmXquvYp6iRnx RQOvoiI3oDGcPIhne0zkI SQ5g7ojymeePLKzKYjpXd 9udHRibHtcZjAgQXJpYWw 5rF82ZEUhoD5efTAtKJin kdMuXArfodMrfjLyGid0E SG8uJtaKYOkwyzbNbW2YK qsMSWipvjrAAc5JKahAOK daDP5IRXrjFUgL7TfAOJl AF4fhqs7QTT3JFjxKOQtB oV1ZIJdzOMcZFRiqEmaFA hdp830AVJ2SaYkOFGhfxS yqVplqD8fCrnrasCaCNGu MVxwYXJccmkxIEEuIENFU oZKJj5NQPcUHKfhCtbOOE X9FKGolgXlXWDpEBDEOJb PIEbDYMKCK0LeEEHWNRfU UL2OFHAZHKeCIJPmUNYtH 7WVOGTZPT6TAxNaSQHkap kdKFS4r1yveVHvOANbfZG vNnLnFJRfXBBus9nnJPCv bGFuZzEwMzNcZnRuYmpcd RJyAIBiKtHci5bpu747bP Vck4rhNSMoEbI9xGGhPPQ emZmkgud4zWatDgXhDEQj e1pfdhBxBdSgITFvBFFgJ CEbtBWyD811FKZdBKcsh5 gtb0ZmAHOdzFLth8O0NDY OCXduSpXfS347c2xju5aa pyXhmKT0JWWaPJM7LHptf qYqzmG6MWfgqQVdXyJ9RP tccmVkMFxncmVlbjBcYmx 4LIQvF410NMG8vJeqv5yr EBQ6QQThGYGtGikqVo1nh ZAnC311YPNnGIVMJQHcjR l8GJVwylLrovBbjNIQc43 7Y574e8mmJPEkxtDhcSwY culnt7mzM655EURmqRGkd bHcOsJaIKNbzYKhdPP6KN FjFV3huchnROtnKVsfHNV hjxX4UFXshTRsF8LkHBPu OI8kbbimIPW6FEkdCBJnT PB3OaDfIEMap8Btuqd0Il Ladp4bzf99BFX7j9XrtRf yTKI2NHQ8KpQoBn5gkQLo VICeBY6vPrNcwYAeEIKsh e30qQxbIFcqthTkpL7xLz ZtJLOeeXAaLYDzUC8amBU xALMcyQ9qzuvpVCPuAzGi suniEBVosClqsyAcFt7vh KsoMEW4YBqgW9buqI5rRg U4HHlaQ4qbbJ3zNLb0SZp ozUX8XFQwxQ3yUX0ybgvk q3luEWkxDCzxAFKbfdM8k zB9IJBczZSpS1WqdK9mKJ McUB9nyvmbi5dnDXX6DAq iGYYuCHD2RhEkJFCks1On yyu3OrJoi5XdbQLbYIamX 36lo299BSUvkxFcX9kbwZ FpblxwbGFpblxmMFxmczI 0XHFsXHBsYWluXGYxXGZz MjBcbGFuZzEwMzNcaGlja FxmMVxkYmNoXGYxXGxvY2 bmPvXrJ2AcMYYqInBkfSD qWIcfiPR0UKAyRYLlz29x lCl0YMAhxuhtw7FvSALqt XSqsKDbyE6rltUnq1giZY NeXLSnIOEkG0NlMDC8dXH uVFThnGXwjHU7TI4edkUu ON7tLANaBctzlpKydPWqb iYzSZTuFHaio9wsZJ7oIV WpdPbtvM4ylOZ7ORKkp1n oiHBicEOiv4ysd3VkxxIt ZShzKSBtYXkgYXBwZWFyI P9sQBXemUOousDqq6M0Mn kslGHwalbkEdjmzpT8MVn uxifnPRCfHRmvI9dpKzTy OFHybHkrWhxgy8YzBLKcD GZzMjhccGFyfX0= Final Diagnosis Comment g7vsbHQnOVPbeEOxCMCfS (test code = 6832404613) 5lqqdGhGGAkkNQhP7Qelu ioCRbsTI1aJF7xiWwnzUG ydKDtFKVtVrYso6ggy460 kJHnx5hhVTMSqlmbdRw4q AguW75yg2Y3ApbrH97pxI VaNDP8IQVyGQVhjSXpIUW tRCB3OGFwqJQeZ1tvVGTj IS2mvefrZItgMBxdDGPlv IG6YQUigUGvG7ItFLGwWP ysMOJcfyq7SbOzKl2ruQO yeTcyMFxwYXJkXHBsYWlu LMIqSuQvG20jOQZnUCVms 1oyhUxrdPodC1o9OQUkQN 6vje7tyGUycxHehaJiFUG qJ3plij08mbSlk2LujnGm DESqb10eEPVrvMwwZtZRy cDpUXczC66fzcTlR0DecY YgPOJlHFEwJX3dYCCphgj wYXJ9 Clinical Information AMS and seizures (test code = 0371733121) Gross Description (test r1wwvWAgBEBhkOAaOOGnT code = 5821537039) 5nwwiVxEQYxzLDvH4Omas emDCuwYD2dBJ7zuWigkUA vvDCcXFKaGtAzi0kdj923 tLRbw4raPYEIcubxxMd6w VjaF59ln3T9GawiT1ghNH QwXGdyZWVuMFxibHVlMDt 9XHBhcGVydzEyMjQwXHBh kRFxrOM0PFQqVU6sattmT VjtWUchTUOaclF9OBZnzY GfE9AqWJAtHI3wmokxUSC 7BVkoLLXiXHA4NrRrFXCf a9Zfrhf7YzD0AWvmECChI 3UtL3OxRIhxLWX3MISrXL CrVFHlVI8RHbDhYKf7PiB yMTgiIFJFUSAzNzkyNTkz VCAMBANhOBUcEaTxBgn0S CIgTFJSIDgwMDAwMDAwMD EgXFxuaCBcXHQgMSBcXGZ fCYtnilL7g3ylFMSfsNOh HNI5DZhntHZcUAJaSNElH BevVbGPLiPdToR0EjL7Dt C9LkP0TIe5ENZYKnOdGkZ vVuL2ShH7AXUeNGx7JYl4 FKhEHnJuAZO4NBFfQuhxV WM1IUs9TRhxvOHeWZznk1 KlZeGuLUOfSNlaloA2MYN lnwZmbNythR6zWfZaYBtp YXJccGFyZFxzYjMwXGVwa HEXw5OaZEkmhCMatdrwPz FccGFyXHBhcmRccmkxIEE sAzDiK7PXYPRYP8UXHY1A TCBGTFVJRFxwYXIgUmVjZ Ap7EADyPbKls4chwBNuJq YxGetcJN6cLVRsGWSkRGW xvImeSNqiISIvi9VzYTqv cGljWHNhMzAgUHJlcGFyZ SGdTtIkyFomTYLhMXA1jS 5ekUwsDOSeGHUhgjH6fD6 ndttuGJZUq59fbx76c5e2 IGFuZCAxIFBhcGFuaWNvb GFvdSBzdGFpbmVkKXtcZX BwQ9VtF4BvcbJ8y6gmqBt jr1KmiYMlYN8xyNHrnH== Disclaimer (test code = d5rysMPkZXRlw8qkZGJec 7013798147) GFuZzEwMzNcZnRuYmpcdW AzUXuxbaMrQVxkf9XuO7L yMjAwMFxhbnNpXGRlZmxh mtfrNYOnGPZ8ufOyQKJvA OasTGGyRZxiMx5sxRTywB xkRsLjGUSco2kttgGFEYp hIhYhF466HNDmTZwxc1yi d3LyZOJxmNYgo6I6YSRCd npbnVc6sCjfX61hr4G2Qq xvL1fuSNRiTCXkK4UuFP5 sXBBvHqv7RFR7IKU9DTTn UKTqA3JuHV5hBKBoeGGlO Ft2p8beeCpiORKrJTY8f7 mjTAhsbdTpZY1qcu3uiPn 4w6phwdQzBTVsXDUlpNUT INXsT1KlgOnnLv5wjFf8j HyiMthuFHH1Ssc9WL5wuy 80cso7wKevOLBcoijcNpJ 2OEikLWXbsfcnPAg2HJqx YUPdnNS0EQJckAUuA1RjH LRiWE9qrzi8VVO9XNclSE BcNsY3ULIphQNmOOQqeQp tPXjza528POA3KbCuYC4x U8Izx6J6dG2slDPsUEOus AJcLtOzXXEbxb4nxKPsQM ven8JaOTE1bwY4nSNwmUU iCPKpEX34Nitxr8BcGwhr o4XcA20ejXV1RThsk1gqH I2vZmW8knRaPQwtg5fzqD 7wJjT4IEeaAF3cMK8kBBH xkA7flnhcAWQwNcYdqnza ICAiyRjjvxEdWq8mxNbqC JD5JQviD8pszV6lQvQ9IZ rqZ0kchH0eKOn3HUwsxPE 3VFDfsG8dBW9mkdpre3uz HYanNBgdJHScozH4doE6C ZBqkXRyB1JqcD8eXNGmPY 6kfccap1ucLAU5PHatCMQ fWIJ2QcRrQXFag0Mfcus8 EoPon4HakRBoOGpuN85bm 240KTIeedAwM5tnqVLsro hjiPDoauiqEWyfrmD1POE wxwLbo6SwHGXaSCX3RPwz AHgioWLoCRWoxVrmq6ioA 3RscGFyXHBsYWluXGYxXG ZzMjBcbGFuZzEwMzNcaGl jaFxmMVxkYmNoXGYxXGxv E6qtXtOuM1YnDSPdWrXef DCdC9cdMJfybvDfESRwns QsxPW5RWyvQ2a5QKZechK hfJm2ijStSdMyILGtKRC8 CLdysUJlZGVvq4Lpwyxch VLcUg1qlTLoNTUyoO4wLX MoCKPaLMklNQ0wyJd8DKM EqWDmfMNiSrAIIBVnQQ31 cpBiTAXOnrmtb5P0ZSgaT SBib3JqgRWhD4ghg0ItAH Sxo65tRU4xx7B3t5jjBTN 4YT4rx6KiTGWrePCmsKZu XGByp0Wjpwtnc4LcHTQgu jHnp9ZiLJYspwQajPFtOG XpkpQkps5gifGbTJOlCPM bJ0KvechsuCbybyBpPSNw rf6qhuVqYCI0SCNHHFJfM UNjy7UrbO3ftRTVIAW2tV Kcqb7jbeATvUGrNLXvau2 3RBIcPE5wP1sbMDSsGAVs nbPijUThe8BxTQDghUU3i YXlYX8WQwFBm66qWNIrOH LHlkZgXLVmoPddbSV9riJ 0pC4pCXnJELWoWka+IFRo LPYSSJPmDH8arjDoa8Moi vMgbMbwGENclQSrl0PdcE Ivw2JkqKppt7JoeSJrpXY mNQ8oAMVcfpkqFNAiVQPT OxHQCCRklbL7a0FzETBnO YXoAGW6fQsajpa4XPTjvZ 4cYKPwI8yznldmFBdrSRV wk8IfcN3xtOSUlAJsq0Qo nLIcuIPDsLFbCX0memMyX WaXUWmMLJP5xhYwVVTur4 LdHJzmE6fyN50nuRzseKl 9kJU7VWW1zL8fYsz+IFxw YXJccGFyIEFwcHJvcHJpY NUnyKtqoiUgI6HcbdIhqT 8rxTOptpFtOR7lFM2fL9N 1qLWgZVWbjfHvz7qqBDhh dmUgYmVlbiByZXZpZXdlZ LPzj3JwNDnhJUE4PPpymu BpbmNsdWRpbmcgSCZFLCB FoIJhxXTuIKQ8MKblbbDx ewTxRO9xnB1kpStlfV1be ZVekRE0haqjWNEvKINetN ikGPQhMW5wfXQqHLSuwzM VxKitbOZehK8jX2EsDOAz VWAgsi5lBBPcqF7yCGbka 2VydmljZXMgYXJlIHBlcm Zcvp1jBBRutDMKGV2SSHb rhDWyx0AcxkFeQ8bHCVQ1 NUQwNjYwMjgxKSBleGNlc OBnBLCegm51QEGcqZ8glE hfIJGwzC3omA4lnTotoY6 ySnRnQpCgWKikZD8zVPIa A6puhUYvMGWhIGNgE0mmE zBbqY9zqXqrONdoCyRmAy OrMBvmCKP9eE== Embedded Images (test code = 9859385516) [facility] 13:40:25 Test Item Value Reference Range Interpretation Comments POCT GLU (test code = 5130361018) 112 mg/dL 70-110 H Lab Interpretation (test code = Abnormal 55900-3) [facility] METABOLIC PANEL (NA, K, CL, CO2, GLUCOSE, BUN, CREATININE, CA)2023-05-02 12:15:48 Test Item Value Reference Range Interpretation Comments NA (test code = 132 mmol/L 135-145 L 8797587145) K (test code = 3.2 mmol/L 3.5-5.0 L 5170115600) CL (test code = 100 mmol/L 98-108 6514231629) CO2 TOTAL (test code = 24 mmol/L 23-31 8830653349) AGAP (test code = 8 2-16 8280594732) BUN (test code = 12 mg/dL 7-23 0334595654) GLUCOSE (test code = 117 mg/dL 70-110 H 4599784180) CREATININE (test code = 0.77 mg/dL 0.60-1.25 7940048709) CALCIUM (test code = 7.6 mg/dL 8.6-10.6 L 3368162922) eGFR (test code = 105.3 mL/min/1.73m2 6949935690) LORE (test code = LORE) Association of Glomerular Filtration Rate (GFR) and Staging of Kidney Disease* + --+ --+ ------+| GFR (mL/min/1.73 m2) ?| With Kidney Damage ?| ?Without Kidney Damage+ --------+ --------+ +| ?>90 ?| ?Stage one ?| ? Normal ?+ ---+ ---+ -------+| ?60-89 ?| ?Stage two ?| ? Decreased GFR ? + --+ --+ ------+| ?30-59 ?| ?Stage three ?| ? Stage three ? + --+ --+ ------+| ?15-29 ?| ?Stage four ? | ? Stage four ?+ ---+ ---+ -------+| ?<15 (or dialysis) ? ?| ?Stage five ? | ? Stage five ?+ ---+ ---+ -------+ *Each stage assumes the associated GFR level has been in effect for at least three months. ?Stages 1 to 5, with or without kidney disease, indicate chronic kidney disease. Notes: Determination of stages one and two (with eGFR >59mL/min/1.73 m2) requires estimation of kidney damage for at least three months as defined by structural or functional abnormalities of the kidney, manifested by either:Pathological abnormalities or Markers of kidney damage (including abnormalities in the composition of the blood or urine or abnormalities in imaging tests). Lab Interpretation Abnormal (test code = 91226-0) [facility] 12:15[facility]48 Test Item Value Reference Range Interpretation Comments MAGNESIUM (test code = 1282757612) 1.5 mg/dL 1.7-2.4 L Lab Interpretation (test code = Abnormal 56458-4) [facility] WITH [id number] 11:58:30 Test Item Value Reference Range Interpretation Comments WBC (test code = 5.30 See_Comment [Automated 0872-2) message] The sy stem which generated this result transmitted reference range : 4.20 - 10.70 10*3/?L. The reference range was not used to interpret this result as normal/abnormal . RBC (test code = 3.58 See_Comment L [Automated 820-1) message] The sy stem which generated this result transmitted reference range : 4.26 - 5.52 10*6/?L. The reference range was not used to interpret this result as normal/abnormal . HGB (test code = 10.8 g/dL 12.2-16.4 L 718-7) HCT (test code = 31.8 % 38.4-49.3 L 4544-3) MCV (test code = 88.8 fL 81.7-95.6 787-2) MCH (test code = 30.2 pg 26.1-32.7 785-6) MCHC (test code = 34.0 g/dL 31.2-35.0 786-4) RDW-SD (test code = 42.4 fL 38.5-51.6 69640-5) RDW-CV (test code = 13.2 % 12.1-15.4 788-0) PLT (test code = 136 See_Comment L [Automated 777-3) message] The sy stem which generated this result transmitted reference range : 150 - 328 10*3/ ?L. The reference r robbie was not used to interpret this result as normal/abnormal . MPV (test code = 9.0 fL 9.8-13.0 L 69220-4) NRBC/100 WBC (test 0.0 See_Comment [Automat ed code = 4130672240) message] The system which generated this result transmitted reference range : 0.0 - 10.0 /100 WBCs. The refer ence range was not u sed to interpret th is result as normal/abnormal . NRBC x10^3 (test code See_Comment [Auto mated = 8557151790) message] The s ystem which generated this result transmitted reference range : 10*3/?L. The reference range was not used to interpret this result as normal/abnormal . GRAN MAT (NEUT) % 41.5 % (test code = 770-8) IMM GRAN % (test code 0.90 % = 8157394028) LYMPH % (test code = 49.8 % 736-9) MONO % (test code = 5.5 % 5905-5) EOS % (test code = 1.9 % 713-8) BASO % (test code = 0.4 % 706-2) GRAN MAT x10^3(ANC) 2.20 10*3/uL 1.99-6.95 (test code = 5299406591) IMM GRAN x10^3 (test 0.05 10*3/uL 0.00-0.06 code = 1982688790) LYMPH x10^3 (test code 2.64 10*3/uL 1.09-3.23 = 731-0) MONO x10^3 (test code 0.29 10*3/uL 0.36-1.02 L = 742-7) EOS x10^3 (test code = 0.10 10*3/uL 0.06-0.53 711-2) BASO x10^3 (test code 0.01-0.09 = 704-7) Lab Interpretation Abnormal (test code = 48181-5) [facility] [id number] 11:02:06 Test Item Value Reference Range Interpretation Comments MYELIN-B PRO 4.03 ng/mL 0.00-5.50 INTERPRETIVE IN FORMATION: (test code = ?Myelin Basic P rotein This 2638-5) test was develo ped and its performance michi racteristics determined by [facility]. I t has not been cleared or approved by the [place] Food and Drug Administration. This test was performed i n a CLIA certified labor atory and is intended for cl inical purposes.Perfor med By: [facility] [place] [id number] Director: Angelo wilks MD, PhD [facility] GLUCOSE (AUTOMATED)2023-05-02 01:29:07 Test Item Value Reference Range Interpretation Comments POCT GLU (test code = 159 mg/dL 70-110 H Notifi ed Provider [id number]) Lab Interpretation (test Abnormal code = 08655-1) [facility] GLUCOSE (AUTOMATED)2023-05-01 22:46:32 Test Item Value Reference Range Interpretation Comments POCT GLU (test code = 7732621123) 129 mg/dL 70-110 H Lab Interpretation (test code = Abnormal 07862-7) [facility] GLUCOSE (AUTOMATED)2023-05-01 17:26:24 Test Item Value Reference Range Interpretation Comments POCT GLU (test code = 2149251111) 115 mg/dL 70-110 H Lab Interpretation (test code = Abnormal 45997-7) [facility] GLUCOSE (AUTOMATED)2023-05-01 13:38:28 Test Item Value Reference Range Interpretation Comments POCT GLU (test code = 2681386889) 140 mg/dL 70-110 H Lab Interpretation (test code = Abnormal 94325-3) [facility] [id number] 12:42:24 Test Item Value Reference Range Interpretation Comments CSF CULTURE (test No organisms isolated code = 606-4) Gram stain (test code Moderate Mononuclear = 664-3) cells [facility] GLUCOSE (AUTOMATED)2023-05-01 01:10:10 Test Item Value Reference Range Interpretation Comments POCT GLU (test code = 9522709741) 89 mg/dL 70-110 Lab Interpretation (test code = Normal 49781-0) [facility] GLUCOSE (AUTOMATED)2023-04-30 21:43:07 Test Item Value Reference Range Interpretation Comments POCT GLU (test code = 7795883103) 134 mg/dL 70-110 H Lab Interpretation (test code = Abnormal 37674-7) [facility] GLUCOSE (AUTOMATED)2023-04-30 17:14:05 Test Item Value Reference Range Interpretation Comments POCT GLU (test code = 8771502847) 120 mg/dL 70-110 H Lab Interpretation (test code = Abnormal 98910-0) [facility] GLUCOSE (AUTOMATED)2023-04-30 12:51:17 Test Item Value Reference Range Interpretation Comments POCT GLU (test code = 4995763454) 95 mg/dL 70-110 Lab Interpretation (test code = Normal 63413-9) [facility] GLUCOSE (AUTOMATED)2023-04-30 01:36:39 Test Item Value Reference Range Interpretation Comments POCT GLU (test code = 5077679255) 116 mg/dL 70-110 H Lab Interpretation (test code = Abnormal 74691-6) [facility] GLUCOSE (AUTOMATED)2023-04-29 21:22:15 Test Item Value Reference Range Interpretation Comments POCT GLU (test code = 2605638662) 94 mg/dL 70-110 Lab Interpretation (test code = Normal 19654-1) [facility] GLUCOSE (AUTOMATED)2023-04-29 17:06:17 Test Item Value Reference Range Interpretation Comments POCT GLU (test code = 7252391340) 109 mg/dL 70-110 Lab Interpretation (test code = Normal 18879-1) [facility] GLUCOSE (AUTOMATED)2023-04-29 12:57:22 Test Item Value Reference Range Interpretation Comments POCT GLU (test code = 5423066590) 96 mg/dL 70-110 Lab Interpretation (test code = Normal 01555-1) [facility] GLUCOSE (AUTOMATED)2023-04-29 01:54:27 Test Item Value Reference Range Interpretation Comments POCT GLU (test code = 1581581920) 113 mg/dL 70-110 H Lab Interpretation (test code = Abnormal 01594-7) [facility] GLUCOSE (AUTOMATED)2023-04-28 21:52:58 Test Item Value Reference Range Interpretation Comments POCT GLU (test code = 2738879885) 96 mg/dL 70-110 Lab Interpretation (test code = Normal 38775-4) [facility] [id number] 20:31:03 Test Item Value Reference Range Interpretation Comments Escherichia coli K1 Negative Negative, (test code = 62419-6) Indeterminate, See Comment Haemophilus influenzae Negative Negative, (test code = 21828-0) Indeterminate, See Comment Listeria monocytogenes Negative Negative, (test code = 15194-5) Indeterminate, See Comment Neisseria meningitidis Negative Negative, (encapsulated) (test Indeterminate, code = 32362-9) See Comment Streptococcus agalactiae Negative Negative, (test code = 84156-5) Indeterminate, See Comment Streptococcus pneumoniae Negative Negative, (test code = 73353-6) Indeterminate, See Comment Cytomegalovirus (test Negative Negative, code = 05628-5) Indeterminate, See Comment Enterovirus (test code = Negative Negative, 21921-4) Indeterminate, See Comment Herpes simplex virus 1 Negative Negative, (test code = 59477-3) Indeterminate, See Comment Herpes simplex virus 2 Negative Negative, (test code = 75661-9) Indeterminate, See Comment Human herpesvirus 6 Negative Negative, (test code = 45207-2) Indeterminate, See Comment Human parechovirus (test Negative Negative, code = 56344-9) Indeterminate, See Comment Varicella zoster virus Negative Negative, (test code = 35289-4) Indeterminate, See Comment Cryptococcus Negative Negative, neoformans/gattii (test Indeterminate, code = 00408-3) See Comment LORE (test code = LORE) Negative:A negative result does not rule-out infection. ?This assay does not test for all potential infectious agents. Positive:A positive test result does not necessarily indicate the presence of viable organism. ? Lab Interpretation (test Normal code = 29004-6) [facility] FLUID DIRECT [id number] 19:31:39 Test Item Value Reference Range Interpretation Comments BF COLOR (test code = Clear 2979773558) BF WBC Count (test 1 See_Comment [Automat ed message] The code = 3869468268) system ich generated this result transmit christi reference range : 0 - 5 /?L. The reference r robbie was not used to interpr et this result as yvonne l/abnormal. BF RBC Count (test 7 See_Comment [Automat ed message] The code = 5293075769) system [employer] generated this result transmit christi reference range : /?L. The reference range was not used to interpr et this result as yvonne l/abnormal. [facility] FLUID MANUAL [id number] 19:31:39 Test Item Value Reference Range Interpretation Comments BF LYMPHS% (test code = 04114-7) 90 % 28-96 BF MACROPHAGE% (test code = 11852-8) 10 % 16-56 L BF #CELLS CNTD (test code = 49 cells/uL 9097550550) Lab Interpretation (test code = Abnormal 60080-9) [id number]:31:09 Test Item Value Reference Range Interpretation Comments GLU CSF (test code = 79 mg/dL 50-80 0900240362) UNSPUN BODY FLUID Colorless COLOR (test code = 4116326599) UNSPUN BODY FLUID Clear CLARITY (test code = 5022345252) SPUN BODY FLUID COLOR Colorless (test code = 8594976784) SPUN BODY FLUID Clear CLARITY (test code = 3237170938) Sediment (test code = The sediment volume is 5823453434) <0.01 mLs of the total fluid volume of 1 ml and its color is red. [facility] [id number] 19:30:49 Test Item Value Reference Range Interpretation Comments T. PRO CSF (test code = 60.0 mg/dL 15.0-45.0 H 6350952923) UNSPUN BODY FLUID COLOR Colorless (test code = 0085526582) UNSPUN BODY FLUID CLARITY Clear (test code = 5849389124) SPUN BODY FLUID COLOR Colorless (test code = 9999642416) SPUN BODY FLUID CLARITY Clear (test code = 3983220215) Sediment (test code = The sediment volume 3901127294) is <0.01 mLs of the total fluid volume of 1 ml and its color is red. Lab Interpretation (test Abnormal code = 38019-7) [facility] GLUCOSE (AUTOMATED)2023-04-28 16:45:15 Test Item Value Reference Range Interpretation Comments POCT GLU (test code = 3388075681) 144 mg/dL 70-110 H Lab Interpretation (test code = Abnormal 42592-6) [facility]/[id number] 15:22:30 Test Item Value Reference Range Interpretation Comments Syphilis IgG/IgM (test Non-reactive Non-reactive code = 50711-1) LORE (test code = LORE) Non-reactive - No serologic evidence of T. pallidum infection. Cannot exclude incubating or early syphilis. Submit a second specimen in 2-4 weeks if syphilis is clinically suspected. Equivocal - Further testing to follow. Reactive - Further testing to follow. Lab Interpretation (test Normal code = 40463-8) [facility] GLUCOSE (AUTOMATED)2023-04-28 13:10:52 Test Item Value Reference Range Interpretation Comments POCT GLU (test code = 0577260610) 93 mg/dL 70-110 Lab Interpretation (test code = Normal 53864-5) [facility]OS[facility]EMOGLOBIN (A1C)2023-04-28 02:39:46 Test Item Value Reference Range Interpretation Comments HGB A1C (test code = 5.9 % 4.0-5.7 H 4548-4) LORE (test code = LORE) Reference RangesNormal: <5.7%Prediabetes: 5.7 - 6.4%Diabetes: > 6.5% Lab Interpretation (test Abnormal code = 03013-7) [facility] GLUCOSE (AUTOMATED)2023-04-28 01:36:19 Test Item Value Reference Range Interpretation Comments POCT GLU (test code = 5297585481) 156 mg/dL 70-110 H Lab Interpretation (test code = Abnormal 41192-1) [facility] GLUCOSE (AUTOMATED)2023-04-27 23:12:02 Test Item Value Reference Range Interpretation Comments POCT GLU (test code = 7047833924) 94 mg/dL 70-110 Lab Interpretation (test code = Normal 18186-5) [facility] CenterTHYROID STIMULATING [id number] 17:14:15 Test Item Value Reference Range Interpretation Comments TSH (test code = 5.51 See_Comment H [Automated message] [id number]) The system Bad[employer] generated this result transmitted ref erence range: 0.45 - 4 .70 mIU/L. The refe rence range was not u sed to interpret this result as normal/abnor mal. Lab Interpretation (test Abnormal code = 87421-3) [facility] GLUCOSE (AUTOMATED)2023-04-27 16:52:30 Test Item Value Reference Range Interpretation Comments POCT GLU (test code = 9713701177) 128 mg/dL 70-110 H Lab Interpretation (test code = Abnormal 31087-5) [facility] CenterLIPID PANEL (50538)(TOTAL CHOLESTEROL, TRIGLYCERIDES, HDL)2023-04-27 15:48:24 Test Item Value Reference Range Interpretation Comments CHOL (test code = 0186045273) 201 mg/dL 120-200 H HDL (test code = 3770242433) 37 mg/dL >=40 L HDLC RATIO (test code = 7207579867) 5.4 <=5.0 H TRIG (test code = 7431776861) 253 mg/dL 30-170 H LDL CHOL (test code = 89577-9) 113 mg/dL <=160 VLDL (test code = 7097422885) 51 mg/dL 5-60 Lab Interpretation (test code = Abnormal 92513-0) [facility] CenterHEPATIC FUNCTION PANEL (03588) (ALB,T.PRO,BILI T,BU/BC,ALT,AST,ALK PHOS)2023-04-27 15:48:24 Test Item Value Reference Range Interpretation Comments TOTAL BILI (test code = 1149944908) 0.2 mg/dL 0.1-1.1 BILI UNCON (test code = 1001532048) 0.1 mg/dL 0.1-1.1 BILI CONJ (test code = 5741798037) 0.0 mg/dL 0.0-0.3 T PROTEIN (test code = 9306232527) 6.0 g/dL 6.3-8.2 L ALBUMIN (test code = 1473875380) 3.3 g/dL 3.5-5.0 L ALK PHOS (test code = 7440619570) 79 U/L 34-122 ALTv (test code = 1742-6) 14 U/L 5-50 AST(SGOT) (test code = 7057428356) 26 U/L 13-40 Lab Interpretation (test code = Abnormal 88191-4) [facility] CenterPHOSPHORUS2023-[facility] 15:48:24 Test Item Value Reference Range Interpretation Comments PHOSPHORUS (test code = 2995099371) 2.6 mg/dL 2.5-5.0 Lab Interpretation (test code = Normal 32013-0) [facility] GLUCOSE (AUTOMATED)2023-04-27 14:39:15 Test Item Value Reference Range Interpretation Comments POCT GLU (test code = 5236750094) 137 mg/dL 70-110 H Lab Interpretation (test code = Abnormal 28399-6) [facility] GLUCOSE (AUTOMATED)2023-04-27 14:11:08 Test Item Value Reference Range Interpretation Comments POCT GLU (test code = 4284331535) 38 mg/dL 70-110 LL Lab Interpretation (test code = Abnormal 30977-0) [facility] GLUCOSE (AUTOMATED)2023-04-27 02:33:31 Test Item Value Reference Range Interpretation Comments POCT GLU (test code = 3335930556) 105 mg/dL 70-110 Lab Interpretation (test code = Normal 58878-6) [facility] GLUCOSE (AUTOMATED)2023-04-26 22:40:42 Test Item Value Reference Range Interpretation Comments POCT GLU (test code = 2559603007) 89 mg/dL 70-110 Lab Interpretation (test code = Normal 43517-7) [facility] GLUCOSE (AUTOMATED)2023-04-26 20:06:29 Test Item Value Reference Range Interpretation Comments POCT GLU (test code = 5738208175) 77 mg/dL 70-110 Lab Interpretation (test code = Normal 23084-4) [facility])2023-04-26 13:12:00 Test Item Value Reference Range Interpretation Comments POCT GLU (test code = 6400890021) 121 mg/dL 70-110 H Lab Interpretation (test code = Abnormal 75439-7) [facility] CenterVALPROIC ACID, [id number] 08:44:15 Test Item Value Reference Range Interpretation Comments Valproic Acid, Free 14.2 ug/mL 4.0-15.0 (test code = 0479283427) LORE (test code = LORE) Toxic Range: ? Greater than 15 ug/mL Test developed and characteristics determined by [facility] Laboratory Services. Lab Interpretation Normal (test code = 41781-7) [facility] WITH [id number] 23:31:07 Test Item Value Reference Range Interpretation Comments WBC (test code = 4.06 See_Comment L [Automated 0790-2) message] The sy stem which generated this result transmitted reference range : 4.20 - 10.70 10*3/?L. The reference range was not used to interpret this result as normal/abnormal . RBC (test code = 4.60 See_Comment [Automated 369-8) message] The sy stem which generated this result transmitted reference range : 4.26 - 5.52 10*6/?L. The reference range was not used to interpret this result as normal/abnormal . HGB (test code = 13.8 g/dL 12.2-16.4 718-7) HCT (test code = 40.0 % 38.4-49.3 4544-3) MCV (test code = 87.0 fL 81.7-95.6 787-2) MCH (test code = 30.0 pg 26.1-32.7 785-6) MCHC (test code = 34.5 g/dL 31.2-35.0 786-4) RDW-SD (test code = 39.8 fL 38.5-51.6 04903-0) RDW-CV (test code = 12.7 % 12.1-15.4 788-0) PLT (test code = 148 See_Comment L [Automated 777-3) message] The sy stem which generated this result transmitted reference range : 150 - 328 10*3/ ?L. The reference r robbie was not used to interpret this result as normal/abnormal . MPV (test code = 9.1 fL 9.8-13.0 L 92433-9) NRBC/100 WBC (test 0.0 See_Comment [Automat ed code = 5399950138) message] The system which generated this result transmitted reference range : 0.0 - 10.0 /100 WBCs. The refer ence range was not u sed to interpret th is result as normal/abnormal . NRBC x10^3 (test code See_Comment [Auto mated = 7765739122) message] The s ystem which generated this result transmitted reference range : 10*3/?L. The reference range was not used to interpret this result as normal/abnormal . GRAN MAT (NEUT) % 53.7 % (test code = 770-8) IMM GRAN % (test code 0.50 % = 2790947561) LYMPH % (test code = 37.4 % 736-9) MONO % (test code = 6.7 % 5905-5) EOS % (test code = 1.2 % 713-8) BASO % (test code = 0.5 % 706-2) GRAN MAT x10^3(ANC) 2.18 10*3/uL 1.99-6.95 (test code = 0416008461) IMM GRAN x10^3 (test 0.00-0.06 code = 8263497110) LYMPH x10^3 (test code 1.52 10*3/uL 1.09-3.23 = 731-0) MONO x10^3 (test code 0.27 10*3/uL 0.36-1.02 L = 742-7) EOS x10^3 (test code = 0.05 10*3/uL 0.06-0.53 L 711-2) BASO x10^3 (test code 0.01-0.09 = 704-7) Lab Interpretation Abnormal (test code = 77683-7) [facility] CenterCARBAMAZEPINE2023-06-07 23:27:29 Test Item Value Reference Range Interpretation Comments CARBAMAZE (test code = 10.3 ug/mL 4.0-12.0 1195227969) LORE (test code = LORE) Toxic Range: ? Greater than 12 ug/mL Lab Interpretation (test Normal code = 40928-6) [facility]OLIC PANEL (02052)2023-04-25 23:25:27 Test Item Value Reference Range Interpretation Comments NA (test code = 134 mmol/L 135-145 L 3769993040) K (test code = 3.6 mmol/L 3.5-5.0 9693217338) CL (test code = 98 mmol/L 98-108 6258134253) CO2 TOTAL (test code = 25 mmol/L 23-31 0292656717) AGAP (test code = 11 2-16 3796354059) BUN (test code = 17 mg/dL 7-23 9271012738) GLUCOSE (test code = 135 mg/dL 70-110 H 6503948321) CREATININE (test code = 0.92 mg/dL 0.60-1.25 7619387858) TOTAL BILI (test code = 0.5 mg/dL 0.1-1.7 8242281895) CALCIUM (test code = 8.7 mg/dL 8.6-10.6 3784200480) T PROTEIN (test code = 6.8 g/dL 6.3-8.2 7368938278) ALBUMIN (test code = 4.0 g/dL 3.5-5.0 7791185377) ALK PHOS (test code = 97 U/L 34-122 3854975683) ALTv (test code = 15 U/L 5-50 1742-6) AST(SGOT) (test code = 21 U/L 13-40 9774049818) eGFR (test code = 85.7 mL/min/1.73m2 6355852746) LORE (test code = LORE) Association of Glomerular Filtration Rate (GFR) and Staging of Kidney Disease* + --+ --+ ------+| GFR (mL/min/1.73 m2) ?| With Kidney Damage ?| ?Without Kidney Damage+ --------+ --------+ +| ?>90 ?| ?Stage one ?| ? Normal ?+ ---+ ---+ -------+| ?60-89 ?| ?Stage two ?| ? Decreased GFR ? + --+ --+ ------+| ?30-59 ?| ?Stage three ?| ? Stage three ? + --+ --+ ------+| ?15-29 ?| ?Stage four ? | ? Stage four ?+ ---+ ---+ -------+| ?<15 (or dialysis) ? ?| ?Stage five ? | ? Stage five ?+ ---+ ---+ -------+ *Each stage assumes the associated GFR level has been in effect for at least three months. ?Stages 1 to 5, with or without kidney disease, indicate chronic kidney disease. Notes: Determination of stages one and two (with eGFR >59mL/min/1.73 m2) requires estimation of kidney damage for at least three months as defined by structural or functional abnormalities of the kidney, manifested by either:Pathological abnormalities or Markers of kidney damage (including abnormalities in the composition of the blood or urine or abnormalities in imaging tests). Lab Interpretation Abnormal (test code = 64212-3) [facility] CenterAMMONIA, [id number] 23:22:24 Test Item Value Reference Range Interpretation Comments AMMONIA (test code = 8564966978) 29 umol/L 9-33 Lab Interpretation (test code = Normal 45311-2) [facility] WITH [id number] 03:47:44 Test Item Value Reference Range Interpretation Comments WBC (test code = 4.46 See_Comment [Automated 6797-2) message] The sy stem which generated this result transmitted reference range : 4.20 - 10.70 10*3/?L. The reference range was not used to interpret this result as normal/abnormal . RBC (test code = 4.60 See_Comment [Automated 824-8) message] The sy stem which generated this result transmitted reference range : 4.26 - 5.52 10*6/?L. The reference range was not used to interpret this result as normal/abnormal . HGB (test code = 13.8 g/dL 12.2-16.4 718-7) HCT (test code = 40.4 % 38.4-49.3 4544-3) MCV (test code = 87.8 fL 81.7-95.6 787-2) MCH (test code = 30.0 pg 26.1-32.7 785-6) MCHC (test code = 34.2 g/dL 31.2-35.0 786-4) RDW-SD (test code = 40.0 fL 38.5-51.6 79022-3) RDW-CV (test code = 12.7 % 12.1-15.4 788-0) PLT (test code = 130 See_Comment L [Automated 777-3) message] The sy stem which generated this result transmitted reference range : 150 - 328 10*3/ ?L. The reference r robbie was not used to interpret this result as normal/abnormal . MPV (test code = 10.1 fL 9.8-13.0 88343-9) IPF % (test code = 3.6 % 1.2-10.7 Platelet count 1775943348) measured by fluorescence method. NRBC/100 WBC (test 0.0 See_Comment [Automat ed code = 7560690769) message] The system which generated this result transmitted reference range : 0.0 - 10.0 /100 WBCs. The refer ence range was not u sed to interpret th is result as normal/abnormal . NRBC x10^3 (test code See_Comment [Auto mated = 8851604104) message] The s ystem which generated this result transmitted reference range : 10*3/?L. The reference range was not used to interpret this result as normal/abnormal . GRAN MAT (NEUT) % 38.8 % (test code = 770-8) IMM GRAN % (test code 0.40 % = 0461997942) LYMPH % (test code = 54.3 % 736-9) MONO % (test code = 5.4 % 5905-5) EOS % (test code = 0.7 % 713-8) BASO % (test code = 0.4 % 706-2) GRAN MAT x10^3(ANC) 1.73 10*3/uL 1.99-6.95 L (test code = 8658626994) IMM GRAN x10^3 (test 0.00-0.06 code = 6328560725) LYMPH x10^3 (test code 2.42 10*3/uL 1.09-3.23 = 731-0) MONO x10^3 (test code 0.24 10*3/uL 0.36-1.02 L = 742-7) EOS x10^3 (test code = 0.03 10*3/uL 0.06-0.53 L 711-2) BASO x10^3 (test code 0.01-0.09 = 704-7) Lab Interpretation Abnormal (test code = 34444-2) [facility]. METABOLIC PANEL (65669)2023-04-15 03:40:18 Test Item Value Reference Range Interpretation Comments NA (test code = 133 mmol/L 135-145 L 4323494384) K (test code = 3.8 mmol/L 3.5-5.0 1491479980) CL (test code = 96 mmol/L 98-108 L 3912041456) CO2 TOTAL (test code = 27 mmol/L 23-31 2292536982) AGAP (test code = 10 2-16 6543212938) BUN (test code = 25 mg/dL 7-23 H 5566284808) GLUCOSE (test code = 95 mg/dL 70-110 1737309824) CREATININE (test code = 1.11 mg/dL 0.60-1.25 4970850990) TOTAL BILI (test code = 0.6 mg/dL 0.1-1.8 1664162805) CALCIUM (test code = 8.7 mg/dL 8.6-10.6 4842624741) T PROTEIN (test code = 6.5 g/dL 6.3-8.2 4141556113) ALBUMIN (test code = 3.8 g/dL 3.5-5.0 0895525289) ALK PHOS (test code = 81 U/L 34-122 0449183184) ALTv (test code = 20 U/L 5-50 1742-6) AST(SGOT) (test code = 32 U/L 13-40 3831625359) eGFR (test code = 69.0 mL/min/1.73m2 2991523168) LORE (test code = LORE) Association of Glomerular Filtration Rate (GFR) and Staging of Kidney Disease* + --+ --+ ------+| GFR (mL/min/1.73 m2) ?| With Kidney Damage ?| ?Without Kidney Damage+ --------+ --------+ +| ?>90 ?| ?Stage one ?| ? Normal ?+ ---+ ---+ -------+| ?60-89 ?| ?Stage two ?| ? Decreased GFR ? + --+ --+ ------+| ?30-59 ?| ?Stage three ?| ? Stage three ? + --+ --+ ------+| ?15-29 ?| ?Stage four ? | ? Stage four ?+ ---+ ---+ -------+| ?<15 (or dialysis) ? ?| ?Stage five ? | ? Stage five ?+ ---+ ---+ -------+ *Each stage assumes the associated GFR level has been in effect for at least three months. ?Stages 1 to 5, with or without kidney disease, indicate chronic kidney disease. Notes: Determination of stages one and two (with eGFR >59mL/min/1.73 m2) requires estimation of kidney damage for at least three months as defined by structural or functional abnormalities of the kidney, manifested by either:Pathological abnormalities or Markers of kidney damage (including abnormalities in the composition of the blood or urine or abnormalities in imaging tests). Lab Interpretation Abnormal (test code = 06844-2) [facility]MAGNESIUM2023-[facility] 03:40:18 Test Item Value Reference Range Interpretation Comments MAGNESIUM (test code = 1143040443) 1.6 mg/dL 1.7-2.4 L Lab Interpretation (test code = Abnormal 05265-7) [facility] CenterTROPONIN [id number] 14:51:13 Test Item Value Reference Range Interpretation Comments TROPONIN I (test code = 0.018 ng/mL <=0.034 2823679760) LORE (test code = LORE) Reference (Normal) Range (defined by the 99th percentile reference limit): <= 0.034 ng/mL Note: Cardiac troponin begins to rise 3-4 hours after the onset of ischemia. Repeat in 4-6 hours if the sample was drawn within 3-4 hours of the onset of the symptom and found normal. Diagnosis of myocardial injury is made with acute changes in cTn concentrations with at least one serial sample above the 99th percentile upper reference limit (URL), taken together with the patient's clinical presentation. Biotin has been reported to cause a negative bias, interpret results relative to patient's use of biotin. Lab Interpretation Normal (test code = 14258-6) [facility] CenterN-TERMINAL [id number] 14:48:05 Test Item Value Reference Range Interpretation Comments NT-proBNP (test code = 60 pg/mL <=125 0310176635) LORE (test code = LORE) Biotin has been reported to cause a negative bias, interpret results relative to patient's use of biotin. Lab Interpretation (test Normal code = 06992-1) [facility] CenterMAGN[facility]IUM2023-04-05 14:39:54 Test Item Value Reference Range Interpretation Comments MAGNESIUM (test code = 8065720584) 1.9 mg/dL 1.7-2.4 Lab Interpretation (test code = Normal 88315-7) [facility] CenterCOM. METABOLIC PANEL (86675)2023-02-21 14:39:34 Test Item Value Reference Range Interpretation Comments NA (test code = 140 mmol/L 135-145 2236973492) K (test code = 5.0 mmol/L 3.5-5.0 5827385884) CL (test code = 107 mmol/L 98-108 8006613180) CO2 TOTAL (test code = 22 mmol/L 23-31 L 7529293980) AGAP (test code = 11 2-16 4737204935) BUN (test code = 23 mg/dL 7-23 3740528796) GLUCOSE (test code = 103 mg/dL 70-110 3034383102) CREATININE (test code = 0.77 mg/dL 0.60-1.25 4020627261) TOTAL BILI (test code = 0.8 mg/dL 0.1-1.3 7838107745) CALCIUM (test code = 8.5 mg/dL 8.6-10.6 L 7425196097) T PROTEIN (test code = 7.3 g/dL 6.3-8.2 0353350890) ALBUMIN (test code = 4.3 g/dL 3.5-5.0 0258438500) ALK PHOS (test code = 67 U/L 34-122 1626031821) ALTv (test code = 20 U/L 5-50 1742-6) AST(SGOT) (test code = 41 U/L 13-40 H 4096482753) eGFR (test code = 105.3 mL/min/1.73m2 6938096867) LORE (test code = LORE) Association of Glomerular Filtration Rate (GFR) and Staging of Kidney Disease* + --+ --+ ------+| GFR (mL/min/1.73 m2) ?| With Kidney Damage ?| ?Without Kidney Damage+ --------+ --------+ +| ?>90 ?| ?Stage one ?| ? Normal ?+ ---+ ---+ -------+| ?60-89 ?| ?Stage two ?| ? Decreased GFR ? + --+ --+ ------+| ?30-59 ?| ?Stage three ?| ? Stage three ? + --+ --+ ------+| ?15-29 ?| ?Stage four ? | ? Stage four ?+ ---+ ---+ -------+| ?<15 (or dialysis) ? ?| ?Stage five ? | ? Stage five ?+ ---+ ---+ -------+ *Each stage assumes the associated GFR level has been in effect for at least three months. ?Stages 1 to 5, with or without kidney disease, indicate chronic kidney disease. Notes: Determination of stages one and two (with eGFR >59mL/min/1.73 m2) requires estimation of kidney damage for at least three months as defined by structural or functional abnormalities of the kidney, manifested by either:Pathological abnormalities or Markers of kidney damage (including abnormalities in the composition of the blood or urine or abnormalities in imaging tests). Lab Interpretation Abnormal (test code = 80724-2) [facility] WITH [id number] 14:29:33 Test Item Value Reference Range Interpretation Comments WBC (test code = 6.77 See_Comment [Automated 5180-2) message] The sy stem which generated this result transmitted reference range : 4.20 - 10.70 10*3/?L. The reference range was not used to interpret this result as normal/abnormal . RBC (test code = 4.65 See_Comment [Automated 386-0) message] The sy stem which generated this result transmitted reference range : 4.26 - 5.52 10*6/?L. The reference range was not used to interpret this result as normal/abnormal . HGB (test code = 13.6 g/dL 12.2-16.4 718-7) HCT (test code = 42.0 % 38.4-49.3 4544-3) MCV (test code = 90.3 fL 81.7-95.6 787-2) MCH (test code = 29.2 pg 26.1-32.7 785-6) MCHC (test code = 32.4 g/dL 31.2-35.0 786-4) RDW-SD (test code = 43.3 fL 38.5-51.6 16988-2) RDW-CV (test code = 13.2 % 12.1-15.4 788-0) PLT (test code = 133 See_Comment L [Automated 777-3) message] The sy stem which generated this result transmitted reference range : 150 - 328 10*3/ ?L. The reference r robbie was not used to interpret this result as normal/abnormal . MPV (test code = 9.5 fL 9.8-13.0 L 67776-6) IPF % (test code = 1.6 % 1.2-10.7 Platelet count 6162984259) measured by fluorescence method. NRBC/100 WBC (test 0.0 See_Comment [Automat ed code = 6547373678) message] The system which generated this result transmitted reference range : 0.0 - 10.0 /100 WBCs. The refer ence range was not u sed to interpret th is result as normal/abnormal . NRBC x10^3 (test code See_Comment [Auto mated = 9617095098) message] The s ystem which generated this result transmitted reference range : 10*3/?L. The reference range was not used to interpret this result as normal/abnormal . GRAN MAT (NEUT) % 52.5 % (test code = 770-8) IMM GRAN % (test code 0.90 % = 6792026000) LYMPH % (test code = 38.8 % 736-9) MONO % (test code = 7.1 % 5905-5) EOS % (test code = 0.3 % 713-8) BASO % (test code = 0.4 % 706-2) GRAN MAT x10^3(ANC) 3.55 10*3/uL 1.99-6.95 (test code = 4731486292) IMM GRAN x10^3 (test 0.06 10*3/uL 0.00-0.06 code = 7514335625) LYMPH x10^3 (test code 2.63 10*3/uL 1.09-3.23 = 731-0) MONO x10^3 (test code 0.48 10*3/uL 0.36-1.02 = 742-7) EOS x10^3 (test code = 0.06-0.53 L 711-2) BASO x10^3 (test code 0.03 10*3/uL 0.01-0.09 = 704-7) Lab Interpretation Abnormal (test code = 64468-9) [facility]DR[facility] [id number] 15:59:00 Test Item Value Reference Range Interpretation Comments U Benzodia Scr (test Negative *NA*(10/21/17 code = U Benzodia Scr) 9:59 AM) [facility] [id number] 15:59:00 Test Item Value Reference Range Interpretation Comments U Sophy Scr (test code Positive *ABN*(10/21/17 = U Sophy Scr) 9:59 AM) [facility] [id number] 15:59:00 Test Item Value Reference Range Interpretation Comments U Opiate Scr (test Positive *ABN*(10/21/17 code = U Opiate Scr) 9:59 AM) [facility] [id number] 15:59:00 Test Item Value Reference Range Interpretation Comments UA Urobilinogen (test code = UA <=1.0 mg/dL 0.1-1.0 Urobilinogen) [facility] AND [id number] 15:59:00 Test Item Value Reference Range Interpretation Comments UA Mucus (test code = UA Mucus) Few /LPF [facility] [id number] 15:59:00 Test Item Value Reference Range Interpretation Comments UA WBC (test code = 1 See_Comment [Automa christi message] The UA WBC) system which ge nerated this result transmit christi reference range : <=5. The reference range was not used to interpr et this result as yvonne l/abnormal. [facility] [id number] 15:59:00 Test Item Value Reference Range Interpretation Comments U Amph Scr (test code Negative *NA*(10/21/17 = U Amph Scr) 9:59 AM) [facility] [id number] 15:59:00 Test Item Value Reference Range Interpretation Comments UA RBC (test code = no gt See_Comment [Automa christi message] The UA RBC) system which ge nerated this result transmit christi reference range : <=2. The reference range was not used to interpr et this result as yvonne l/abnormal. [facility] [id number] 15:59:00 Test Item Value Reference Range Interpretation Comments UA Blood (test code = Negative (10/21/17 9:59 UA Blood) AM) [facility] [id number] 15:59:00 Test Item Value Reference Range Interpretation Comments UA Ketones (test code = UA Trace mg/dL Ketones) [facility] [id number] 15:59:00 Test Item Value Reference Range Interpretation Comments UA Bili (test code = Negative *NA*(10/21/17 UA Bili) 9:59 AM) [facility] [id number] 15:59:00 Test Item Value Reference Range Interpretation Comments UA Protein (test code = UA Negative mg/dL Protein) [facility] [id number] 15:59:00 Test Item Value Reference Range Interpretation Comments UA Glucose (test code = UA Glucose) 50 mg/dL [facility] [id number] 15:59:00 Test Item Value Reference Range Interpretation Comments UA Spec Grav (test code = UA Spec Grav) 1.024 [facility] [id number] 15:59:00 Test Item Value Reference Range Interpretation Comments UA pH (test code = UA pH) 7.0 5.0-8.0 [facility] [id number] 15:59:00 Test Item Value Reference Range Interpretation Comments UA Nitrite (test code Negative (10/21/17 9:59 = UA Nitrite) AM) [facility] [id number] 15:59:00 Test Item Value Reference Range Interpretation Comments UA Leuk Est (test Negative (10/21/17 9:59 code = UA Leuk Est) AM) [facility] [id number] 15:59:00 Test Item Value Reference Range Interpretation Comments U Benzodia Scr (test Negative *NA*(10/21/17 code = U Benzodia Scr) 9:59 AM) [facility] [id number] 15:59:00 Test Item Value Reference Range Interpretation Comments UA Sq Epi (test code = UA Sq Occasional /LPF Epi) [facility] [id number] 15:59:00 Test Item Value Reference Range Interpretation Comments UA Turbidity (test code Slight *ABN*(10/21/17 = UA Turbidity) 9:59 AM) [facility] [id number] 15:59:00 Test Item Value Reference Range Interpretation Comments UA Color (test code = Yellow *NA*(10/21/17 UA Color) 9:59 AM) [facility] [id number] 15:59:00 Test Item Value Reference Range Interpretation Comments U Sophy Scr (test code Positive *ABN*(10/21/17 = U Sophy Scr) 9:59 AM) [facility] [id number] 15:59:00 Test Item Value Reference Range Interpretation Comments U Opiate Scr (test Positive *ABN*(10/21/17 code = U Opiate Scr) 9:59 AM) [facility] [id number] 15:59:00 Test Item Value Reference Range Interpretation Comments UA Urobilinogen (test code = UA <=1.0 mg/dL 0.1-1.0 Urobilinogen) [facility] [id number] 15:59:00 Test Item Value Reference Range Interpretation Comments UDS Note (test code = See Note (10/21/17 9:59 UDS Note) AM) [facility] [id number] 15:59:00 Test Item Value Reference Range Interpretation Comments U Phencyc Scr (test Negative *NA*(10/21/17 code = U Phencyc Scr) 9:59 AM) [facility] [id number] 15:59:00 Test Item Value Reference Range Interpretation Comments U Cannab Scr (test Negative *NA*(10/21/17 code = U Cannab Scr) 9:59 AM) [facility] [id number] 15:59:00 Test Item Value Reference Range Interpretation Comments U Cocaine Scr (test Negative *NA*(10/21/17 code = U Cocaine Scr) 9:59 AM) [facility] [id number] 15:59:00 Test Item Value Reference Range Interpretation Comments U Amph Scr (test code Negative *NA*(10/21/17 = U Amph Scr) 9:59 AM) [facility] [id number] 15:59:00 Test Item Value Reference Range Interpretation Comments U Benzodia Scr (test Negative *NA*(10/21/17 code = U Benzodia Scr) 9:59 AM) [facility] [id number] 15:59:00 Test Item Value Reference Range Interpretation Comments U Sophy Scr (test code Positive *ABN*(10/21/17 = U Sophy Scr) 9:59 AM) [facility] [id number] 15:59:00 Test Item Value Reference Range Interpretation Comments U Opiate Scr (test Positive *ABN*(10/21/17 code = U Opiate Scr) 9:59 AM) [facility] [id number] 15:59:00 Test Item Value Reference Range Interpretation Comments UA Urobilinogen (test code = UA <=1.0 mg/dL 0.1-1.0 Urobilinogen) [facility] [id number] 15:59:00 Test Item Value Reference Range Interpretation Comments UA Mucus (test code = UA Mucus) Few /LPF [facility] [id number] 15:59:00 Test Item Value Reference Range Interpretation Comments UA WBC (test code = 1 See_Comment [Automa christi message] The UA WBC) system which ge nerated this result transmit christi reference range : <=5. The reference range was not used to interpr et this result as yvonne l/abnormal. [facility] [id number] 15:59:00 Test Item Value Reference Range Interpretation Comments UA RBC (test code = no gt See_Comment [Automa christi message] The UA RBC) system which ge nerated this result transmit christi reference range : <=2. The reference range was not used to interpr et this result as yvonne l/abnormal. [facility] [id number] 15:59:00 Test Item Value Reference Range Interpretation Comments UA Blood (test code = Negative (10/21/17 9:59 UA Blood) AM) [facility] AND [id number] 15:59:00 Test Item Value Reference Range Interpretation Comments UA Ketones (test code = UA Trace mg/dL Ketones) [facility] AND [id number] 15:59:00 Test Item Value Reference Range Interpretation Comments UA Bili (test code = Negative *NA*(10/21/17 UA Bili) 9:59 AM) [facility] AND [id number] 15:59:00 Test Item Value Reference Range Interpretation Comments UA Protein (test code = UA Negative mg/dL Protein) [facility] AND [id number] 15:59:00 Test Item Value Reference Range Interpretation Comments UA Glucose (test code = UA Glucose) 50 mg/dL [facility] AND [id number] 15:59:00 Test Item Value Reference Range Interpretation Comments UA Spec Grav (test code = UA Spec Grav) 1.024 [facility] AND [id number] 15:59:00 Test Item Value Reference Range Interpretation Comments UA pH (test code = UA pH) 7.0 5.0-8.0 [facility] AND [id number] 15:59:00 Test Item Value Reference Range Interpretation Comments UA Nitrite (test code Negative (10/21/17 9:59 = UA Nitrite) AM) [facility] AND [id number] 15:59:00 Test Item Value Reference Range Interpretation Comments UA Leuk Est (test Negative (10/21/17 9:59 code = UA Leuk Est) AM) [facility] AND [id number] 15:59:00 Test Item Value Reference Range Interpretation Comments UA Sq Epi (test code = UA Sq Occasional /LPF Epi) [facility] AND [id number] 15:59:00 Test Item Value Reference Range Interpretation Comments UA Turbidity (test code Slight *ABN*(10/21/17 = UA Turbidity) 9:59 AM) [facility] AND [id number] 15:59:00 Test Item Value Reference Range Interpretation Comments UA Color (test code = Yellow *NA*(12/3/17 UA Color) 9:59 AM) [facility] [id number] 15:59:00 Test Item Value Reference Range Interpretation Comments UA Mucus (test code = UA Mucus) Few /LPF [facility] [id number] 15:59:00 Test Item Value Reference Range Interpretation Comments UDS Note (test code = See Note (10/21/17 9:59 UDS Note) AM) [facility] [id number] 15:59:00 Test Item Value Reference Range Interpretation Comments UA WBC (test code = 1 See_Comment [Automa christi message] The UA WBC) system which ge nerated this result transmit christi reference range : <=5. The reference range was not used to interpr et this result as yvonne l/abnormal. [facility] [id number] 15:59:00 Test Item Value Reference Range Interpretation Comments U Phencyc Scr (test Negative *NA*(10/21/17 code = U Phencyc Scr) 9:59 AM) [facility] [id number] 15:59:00 Test Item Value Reference Range Interpretation Comments U Cannab Scr (test Negative *NA*(10/21/17 code = U Cannab Scr) 9:59 AM) [facility] [id number] 15:59:00 Test Item Value Reference Range Interpretation Comments U Cocaine Scr (test Negative *NA*(10/21/17 code = U Cocaine Scr) 9:59 AM) [facility] [id number] 15:59:00 Test Item Value Reference Range Interpretation Comments U Amph Scr (test code Negative *NA*(10/21/17 = U Amph Scr) 9:59 AM) [facility] [id number] 15:59:00 Test Item Value Reference Range Interpretation Comments U Benzodia Scr (test Negative *NA*(10/21/17 code = U Benzodia Scr) 9:59 AM) [facility] [id number] 15:59:00 Test Item Value Reference Range Interpretation Comments U Sophy Scr (test code Positive *ABN*(10/21/17 = U Sophy Scr) 9:59 AM) [facility] [id number] 15:59:00 Test Item Value Reference Range Interpretation Comments U Opiate Scr (test Positive *ABN*(10/21/17 code = U Opiate Scr) 9:59 AM) [facility] AND [id number] 15:59:00 Test Item Value Reference Range Interpretation Comments UA Urobilinogen (test code = UA <=1.0 mg/dL 0.1-1.0 Urobilinogen) [facility] AND [id number] 15:59:00 Test Item Value Reference Range Interpretation Comments UA Mucus (test code = UA Mucus) Few /LPF [facility] AND [id number] 15:59:00 Test Item Value Reference Range Interpretation Comments UA WBC (test code = 1 See_Comment [Automa christi message] The UA WBC) system which ge nerated this result transmit christi reference range : <=5. The reference range was not used to interpr et this result as yvonne l/abnormal. [facility] AND [id number] 15:59:00 Test Item Value Reference Range Interpretation Comments UA RBC (test code = no gt See_Comment [Automa christi message] The UA RBC) system which ge nerated this result transmit christi reference range : <=2. The reference range was not used to interpr et this result as yvonne l/abnormal. [facility] AND [id number] 15:59:00 Test Item Value Reference Range Interpretation Comments UA RBC (test code = no gt See_Comment [Automa christi message] The UA RBC) system which ge nerated this result transmit christi reference range : <=2. The reference range was not used to interpr et this result as yvonne l/abnormal. [facility] AND [id number] 15:59:00 Test Item Value Reference Range Interpretation Comments UA Blood (test code = Negative (10/21/17 9:59 UA Blood) AM) [facility] AND [id number] 15:59:00 Test Item Value Reference Range Interpretation Comments UA Ketones (test code = UA Trace mg/dL Ketones) [facility] AND [id number] 15:59:00 Test Item Value Reference Range Interpretation Comments UA Bili (test code = Negative *NA*(10/21/17 UA Bili) 9:59 AM) [facility] AND [id number] 15:59:00 Test Item Value Reference Range Interpretation Comments UA Protein (test code = UA Negative mg/dL Protein) [facility] AND [id number] 15:59:00 Test Item Value Reference Range Interpretation Comments UA Glucose (test code = UA Glucose) 50 mg/dL [facility] AND [id number] 15:59:00 Test Item Value Reference Range Interpretation Comments UA Spec Grav (test code = UA Spec Grav) 1.024 [facility] AND [id number] 15:59:00 Test Item Value Reference Range Interpretation Comments UA pH (test code = UA pH) 7.0 5.0-8.0 [facility] AND [id number] 15:59:00 Test Item Value Reference Range Interpretation Comments UA Nitrite (test code Negative (10/21/17 9:59 = UA Nitrite) AM) [facility] AND [id number] 15:59:00 Test Item Value Reference Range Interpretation Comments UA Leuk Est (test Negative (10/21/17 9:59 code = UA Leuk Est) AM) [facility] AND [id number] 15:59:00 Test Item Value Reference Range Interpretation Comments UA Blood (test code = Negative (10/21/17 9:59 UA Blood) AM) [facility] AND [id number] 15:59:00 Test Item Value Reference Range Interpretation Comments UA Sq Epi (test code = UA Sq Occasional /LPF Epi) [facility] AND [id number] 15:59:00 Test Item Value Reference Range Interpretation Comments UA Turbidity (test code Slight *ABN*(10/21/17 = UA Turbidity) 9:59 AM) [facility] AND [id number] 15:59:00 Test Item Value Reference Range Interpretation Comments UA Color (test code = Yellow *NA*(10/21/17 UA Color) 9:59 AM) [facility] AND [id number] 15:59:00 Test Item Value Reference Range Interpretation Comments UA Ketones (test code = UA Trace mg/dL Ketones) [facility] AND [id number] 15:59:00 Test Item Value Reference Range Interpretation Comments UA Bili (test code = Negative *NA*(10/21/17 UA Bili) 9:59 AM) [facility] [id number] 15:59:00 Test Item Value Reference Range Interpretation Comments UA Protein (test code = UA Negative mg/dL Protein) [facility] [id number] 15:59:00 Test Item Value Reference Range Interpretation Comments UA Glucose (test code = UA Glucose) 50 mg/dL [facility] [id number] 15:59:00 Test Item Value Reference Range Interpretation Comments UDS Note (test code = See Note (10/21/17 9:59 UDS Note) AM) [facility] [id number] 15:59:00 Test Item Value Reference Range Interpretation Comments UA Spec Grav (test code = UA Spec Grav) 1.024 [facility] [id number] 15:59:00 Test Item Value Reference Range Interpretation Comments U Phencyc Scr (test Negative *NA*(10/21/17 code = U Phencyc Scr) 9:59 AM) [facility] [id number] 15:59:00 Test Item Value Reference Range Interpretation Comments U Cannab Scr (test Negative *NA*(10/21/17 code = U Cannab Scr) 9:59 AM) [facility] [id number] 15:59:00 Test Item Value Reference Range Interpretation Comments U Cocaine Scr (test Negative *NA*(10/21/17 code = U Cocaine Scr) 9:59 AM) [facility] [id number] 15:59:00 Test Item Value Reference Range Interpretation Comments U Amph Scr (test code Negative *NA*(10/21/17 = U Amph Scr) 9:59 AM) [facility] [id number] 15:59:00 Test Item Value Reference Range Interpretation Comments U Benzodia Scr (test Negative *NA*(10/21/17 code = U Benzodia Scr) 9:59 AM) [facility] [id number] 15:59:00 Test Item Value Reference Range Interpretation Comments U Sophy Scr (test code Positive *ABN*(10/21/17 = U Sophy Scr) 9:59 AM) [facility] [id number] 15:59:00 Test Item Value Reference Range Interpretation Comments U Opiate Scr (test Positive *ABN*(10/21/17 code = U Opiate Scr) 9:59 AM) [facility] AND [id number] 15:59:00 Test Item Value Reference Range Interpretation Comments UA Urobilinogen (test code = UA <=1.0 mg/dL 0.1-1.0 Urobilinogen) [facility] AND [id number] 15:59:00 Test Item Value Reference Range Interpretation Comments UA Mucus (test code = UA Mucus) Few /LPF [facility] AND [id number] 15:59:00 Test Item Value Reference Range Interpretation Comments UA WBC (test code = 1 See_Comment [Automa christi message] The UA WBC) system which ge nerated this result transmit christi reference range : <=5. The reference range was not used to interpr et this result as yvonne l/abnormal. [facility] AND [id number] 15:59:00 Test Item Value Reference Range Interpretation Comments UA pH (test code = UA pH) 7.0 5.0-8.0 [facility] AND [id number] 15:59:00 Test Item Value Reference Range Interpretation Comments UA RBC (test code = no gt See_Comment [Automa christi message] The UA RBC) system which ge nerated this result transmit christi reference range : <=2. The reference range was not used to interpr et this result as yvonne l/abnormal. [facility] AND [id number] 15:59:00 Test Item Value Reference Range Interpretation Comments UA Blood (test code = Negative (10/21/17 9:59 UA Blood) AM) [facility] AND [id number] 15:59:00 Test Item Value Reference Range Interpretation Comments UA Ketones (test code = UA Trace mg/dL Ketones) [facility] AND [id number] 15:59:00 Test Item Value Reference Range Interpretation Comments UA Bili (test code = Negative *NA*(10/21/17 UA Bili) 9:59 AM) [facility] AND [id number] 15:59:00 Test Item Value Reference Range Interpretation Comments UA Protein (test code = UA Negative mg/dL Protein) [facility] AND [id number] 15:59:00 Test Item Value Reference Range Interpretation Comments UA Glucose (test code = UA Glucose) 50 mg/dL [facility] [id number] 15:59:00 Test Item Value Reference Range Interpretation Comments UA Spec Grav (test code = UA Spec Grav) 1.024 [facility] AND [id number] 15:59:00 Test Item Value Reference Range Interpretation Comments UA pH (test code = UA pH) 7.0 5.0-8.0 [facility] [id number] 15:59:00 Test Item Value Reference Range Interpretation Comments UA Nitrite (test code Negative (10/21/17 9:59 = UA Nitrite) AM) [facility] [id number] 15:59:00 Test Item Value Reference Range Interpretation Comments UA Leuk Est (test Negative (10/21/17 9:59 code = UA Leuk Est) AM) [facility] AND [id number] 15:59:00 Test Item Value Reference Range Interpretation Comments UA Nitrite (test code Negative (10/21/17 9:59 = UA Nitrite) AM) [facility] AND [id number] 15:59:00 Test Item Value Reference Range Interpretation Comments UA Sq Epi (test code = UA Sq Occasional /LPF Epi) [facility] AND [id number] 15:59:00 Test Item Value Reference Range Interpretation Comments UA Turbidity (test code Slight *ABN*(10/21/17 = UA Turbidity) 9:59 AM) [facility] AND [id number] 15:59:00 Test Item Value Reference Range Interpretation Comments UA Color (test code = Yellow *NA*(10/21/17 UA Color) 9:59 AM) [facility] [id number] 15:59:00 Test Item Value Reference Range Interpretation Comments U Phencyc Scr (test Negative *NA*(10/21/17 code = U Phencyc Scr) 9:59 AM) [facility] [id number] 15:59:00 Test Item Value Reference Range Interpretation Comments UA Leuk Est (test Negative (10/21/17 9:59 code = UA Leuk Est) AM) [facility] [id number] 15:59:00 Test Item Value Reference Range Interpretation Comments U Cannab Scr (test Negative *NA*(10/21/17 code = U Cannab Scr) 9:59 AM) [facility] [id number] 15:59:00 Test Item Value Reference Range Interpretation Comments UA Sq Epi (test code = UA Sq Occasional /LPF Epi) [facility] [id number] 15:59:00 Test Item Value Reference Range Interpretation Comments U Cocaine Scr (test Negative *NA*(10/21/17 code = U Cocaine Scr) 9:59 AM) [facility] [id number] 15:59:00 Test Item Value Reference Range Interpretation Comments UA Turbidity (test code Slight *ABN*(10/21/17 = UA Turbidity) 9:59 AM) [facility] [id number] 15:59:00 Test Item Value Reference Range Interpretation Comments U Amph Scr (test code Negative *NA*(10/21/17 = U Amph Scr) 9:59 AM) [facility] [id number] 15:59:00 Test Item Value Reference Range Interpretation Comments UA Color (test code = Yellow *NA*(10/21/17 UA Color) 9:59 AM) [facility] [id number] 15:59:00 Test Item Value Reference Range Interpretation Comments U Benzodia Scr (test Negative *NA*(10/21/17 code = U Benzodia Scr) 9:59 AM) [facility] [id number] 15:59:00 Test Item Value Reference Range Interpretation Comments UDS Note (test code = See Note (10/21/17 9:59 UDS Note) AM) [facility] [id number] 15:59:00 Test Item Value Reference Range Interpretation Comments U Phencyc Scr (test Negative *NA*(10/21/17 code = U Phencyc Scr) 9:59 AM) [facility] [id number] 15:59:00 Test Item Value Reference Range Interpretation Comments U Cannab Scr (test Negative *NA*(10/21/17 code = U Cannab Scr) 9:59 AM) [facility] [id number] 15:59:00 Test Item Value Reference Range Interpretation Comments U Cocaine Scr (test Negative *NA*(10/21/17 code = U Cocaine Scr) 9:59 AM) [facility] [id number] 15:59:00 Test Item Value Reference Range Interpretation Comments U Amph Scr (test code Negative *NA*(10/21/17 = U Amph Scr) 9:59 AM) [facility] [id number] 15:59:00 Test Item Value Reference Range Interpretation Comments U Benzodia Scr (test Negative *NA*(10/21/17 code = U Benzodia Scr) 9:59 AM) [facility] [id number] 15:59:00 Test Item Value Reference Range Interpretation Comments U Sophy Scr (test code Positive *ABN*(10/21/17 = U Sophy Scr) 9:59 AM) [facility] [id number] 15:59:00 Test Item Value Reference Range Interpretation Comments U Opiate Scr (test Positive *ABN*(10/21/17 code = U Opiate Scr) 9:59 AM) [facility] [id number] 15:59:00 Test Item Value Reference Range Interpretation Comments UA Urobilinogen (test code = UA <=1.0 mg/dL 0.1-1.0 Urobilinogen) [facility] [id number] 15:59:00 Test Item Value Reference Range Interpretation Comments U Sophy Scr (test code Positive *ABN*(10/21/17 = U Sophy Scr) 9:59 AM) [facility] AND [id number] 15:59:00 Test Item Value Reference Range Interpretation Comments UA Mucus (test code = UA Mucus) Few /LPF [facility] AND [id number] 15:59:00 Test Item Value Reference Range Interpretation Comments UA WBC (test code = 1 See_Comment [Automa christi message] The UA WBC) system which ge nerated this result transmit christi reference range : <=5. The reference range was not used to interpr et this result as yvonne l/abnormal. [facility] [id number] 15:59:00 Test Item Value Reference Range Interpretation Comments UA RBC (test code = no gt See_Comment [Automa christi message] The UA RBC) system which ge nerated this result transmit christi reference range : <=2. The reference range was not used to interpr et this result as yvonne l/abnormal. [facility] [id number] 15:59:00 Test Item Value Reference Range Interpretation Comments UA Blood (test code = Negative (10/21/17 9:59 UA Blood) AM) [facility] [id number] 15:59:00 Test Item Value Reference Range Interpretation Comments UA Ketones (test code = UA Trace mg/dL Ketones) [facility] [id number] 15:59:00 Test Item Value Reference Range Interpretation Comments UA Bili (test code = Negative *NA*(10/21/17 UA Bili) 9:59 AM) [facility] [id number] 15:59:00 Test Item Value Reference Range Interpretation Comments UA Protein (test code = UA Negative mg/dL Protein) [facility] [id number] 15:59:00 Test Item Value Reference Range Interpretation Comments UA Glucose (test code = UA Glucose) 50 mg/dL [facility] [id number] 15:59:00 Test Item Value Reference Range Interpretation Comments UA Spec Grav (test code = UA Spec Grav) 1.024 [facility] [id number] 15:59:00 Test Item Value Reference Range Interpretation Comments U Opiate Scr (test Positive *ABN*(10/21/17 code = U Opiate Scr) 9:59 AM) [facility] [id number] 15:59:00 Test Item Value Reference Range Interpretation Comments UA pH (test code = UA pH) 7.0 5.0-8.0 [facility] [id number] 15:59:00 Test Item Value Reference Range Interpretation Comments UA Nitrite (test code Negative (10/21/17 9:59 = UA Nitrite) AM) [facility] [id number] 15:59:00 Test Item Value Reference Range Interpretation Comments UA Leuk Est (test Negative (10/21/17 9:59 code = UA Leuk Est) AM) [facility] [id number] 15:59:00 Test Item Value Reference Range Interpretation Comments UA Sq Epi (test code = UA Sq Occasional /LPF Epi) [facility] [id number] 15:59:00 Test Item Value Reference Range Interpretation Comments UA Turbidity (test code Slight *ABN*(10/21/17 = UA Turbidity) 9:59 AM) [facility] [id number] 15:59:00 Test Item Value Reference Range Interpretation Comments UA Color (test code = Yellow *NA*(10/21/17 UA Color) 9:59 AM) [facility] AND [id number] 15:59:00 Test Item Value Reference Range Interpretation Comments UA Urobilinogen (test code = UA <=1.0 mg/dL 0.1-1.0 Urobilinogen) [facility] AND [id number] 15:59:00 Test Item Value Reference Range Interpretation Comments UA Mucus (test code = UA Mucus) Few /LPF [facility] AND [id number] 15:59:00 Test Item Value Reference Range Interpretation Comments UA WBC (test code = 1 See_Comment [Automa christi message] The UA WBC) system which ge nerated this result transmit christi reference range : <=5. The reference range was not used to interpr et this result as yvonne l/abnormal. [facility] AND [id number] 15:59:00 Test Item Value Reference Range Interpretation Comments UA RBC (test code = no gt See_Comment [Automa christi message] The UA RBC) system which ge nerated this result transmit christi reference range : <=2. The reference range was not used to interpr et this result as yvonne l/abnormal. [facility] AND [id number] 15:59:00 Test Item Value Reference Range Interpretation Comments UA Blood (test code = Negative (10/21/17 9:59 UA Blood) AM) [facility] [id number] 15:59:00 Test Item Value Reference Range Interpretation Comments UDS Note (test code = See Note (10/21/17 9:59 UDS Note) AM) [facility] [id number] 15:59:00 Test Item Value Reference Range Interpretation Comments U Phencyc Scr (test Negative *NA*(10/21/17 code = U Phencyc Scr) 9:59 AM) [facility] [id number] 15:59:00 Test Item Value Reference Range Interpretation Comments U Cannab Scr (test Negative *NA*(10/21/17 code = U Cannab Scr) 9:59 AM) [facility] [id number] 15:59:00 Test Item Value Reference Range Interpretation Comments U Cocaine Scr (test Negative *NA*(10/21/17 code = U Cocaine Scr) 9:59 AM) [facility] [id number] 15:59:00 Test Item Value Reference Range Interpretation Comments U Amph Scr (test code Negative *NA*(10/21/17 = U Amph Scr) 9:59 AM) [facility] [id number] 15:59:00 Test Item Value Reference Range Interpretation Comments U Benzodia Scr (test Negative *NA*(10/21/17 code = U Benzodia Scr) 9:59 AM) [facility] [id number] 15:59:00 Test Item Value Reference Range Interpretation Comments U Sophy Scr (test code Positive *ABN*(10/21/17 = U Sophy Scr) 9:59 AM) [facility] [id number] 15:59:00 Test Item Value Reference Range Interpretation Comments UA Ketones (test code = UA Trace mg/dL Ketones) [facility] [id number] 15:59:00 Test Item Value Reference Range Interpretation Comments U Opiate Scr (test Positive *ABN*(10/21/17 code = U Opiate Scr) 9:59 AM) [facility] [id number] 15:59:00 Test Item Value Reference Range Interpretation Comments UA Urobilinogen (test code = UA <=1.0 mg/dL 0.1-1.0 Urobilinogen) [facility] [id number] 15:59:00 Test Item Value Reference Range Interpretation Comments UA Mucus (test code = UA Mucus) Few /LPF [facility] [id number] 15:59:00 Test Item Value Reference Range Interpretation Comments UA WBC (test code = 1 See_Comment [Automa christi message] The UA WBC) system which ge nerated this result transmit christi reference range : <=5. The reference range was not used to interpr et this result as yvonne l/abnormal. [facility] [id number] 15:59:00 Test Item Value Reference Range Interpretation Comments UA RBC (test code = no gt See_Comment [Automa christi message] The UA RBC) system which ge nerated this result transmit christi reference range : <=2. The reference range was not used to interpr et this result as yvonne l/abnormal. [facility] AND [id number] 15:59:00 Test Item Value Reference Range Interpretation Comments UA Blood (test code = Negative (10/21/17 9:59 UA Blood) AM) [facility] AND [id number] 15:59:00 Test Item Value Reference Range Interpretation Comments UA Ketones (test code = UA Trace mg/dL Ketones) [facility] AND [id number] 15:59:00 Test Item Value Reference Range Interpretation Comments UA Bili (test code = Negative *NA*(10/21/17 UA Bili) 9:59 AM) [facility] AND [id number] 15:59:00 Test Item Value Reference Range Interpretation Comments UA Protein (test code = UA Negative mg/dL Protein) [facility] AND [id number] 15:59:00 Test Item Value Reference Range Interpretation Comments UA Bili (test code = Negative *NA*(10/21/17 UA Bili) 9:59 AM) [facility] AND [id number] 15:59:00 Test Item Value Reference Range Interpretation Comments UA Glucose (test code = UA Glucose) 50 mg/dL [facility] AND [id number] 15:59:00 Test Item Value Reference Range Interpretation Comments UA Spec Grav (test code = UA Spec Grav) 1.024 [facility] AND [id number] 15:59:00 Test Item Value Reference Range Interpretation Comments UA pH (test code = UA pH) 7.0 5.0-8.0 [facility] AND [id number] 15:59:00 Test Item Value Reference Range Interpretation Comments UA Nitrite (test code Negative (10/21/17 9:59 = UA Nitrite) AM) [facility] AND [id number] 15:59:00 Test Item Value Reference Range Interpretation Comments UA Leuk Est (test Negative (10/21/17 9:59 code = UA Leuk Est) AM) [facility] AND [id number] 15:59:00 Test Item Value Reference Range Interpretation Comments UA Sq Epi (test code = UA Sq Occasional /LPF Epi) [facility] [id number] 15:59:00 Test Item Value Reference Range Interpretation Comments UA Turbidity (test code Slight *ABN*(10/21/17 = UA Turbidity) 9:59 AM) [facility] [id number] 15:59:00 Test Item Value Reference Range Interpretation Comments UA Color (test code = Yellow *NA*(10/21/17 UA Color) 9:59 AM) [facility] [id number] 15:59:00 Test Item Value Reference Range Interpretation Comments UA Protein (test code = UA Negative mg/dL Protein) [facility] [id number] 15:59:00 Test Item Value Reference Range Interpretation Comments UA Glucose (test code = UA Glucose) 50 mg/dL [facility] [id number] 15:59:00 Test Item Value Reference Range Interpretation Comments UA Spec Grav (test code = UA Spec Grav) 1.024 [facility] [id number] 15:59:00 Test Item Value Reference Range Interpretation Comments UA pH (test code = UA pH) 7.0 5.0-8.0 [facility] [id number] 15:59:00 Test Item Value Reference Range Interpretation Comments UA Nitrite (test code Negative (10/21/17 9:59 = UA Nitrite) AM) [facility] [id number] 15:59:00 Test Item Value Reference Range Interpretation Comments UA Leuk Est (test Negative (10/21/17 9:59 code = UA Leuk Est) AM) [facility] [id number] 15:59:00 Test Item Value Reference Range Interpretation Comments UA Sq Epi (test code = UA Sq Occasional /LPF Epi) [facility] [id number] 15:59:00 Test Item Value Reference Range Interpretation Comments UA Turbidity (test code Slight *ABN*(10/21/17 = UA Turbidity) 9:59 AM) [facility] [id number] 15:59:00 Test Item Value Reference Range Interpretation Comments UDS Note (test code = See Note (10/21/17 9:59 UDS Note) AM) [facility] [id number] 15:59:00 Test Item Value Reference Range Interpretation Comments UA Color (test code = Yellow *NA*(10/21/17 UA Color) 9:59 AM) [facility] [id number] 15:59:00 Test Item Value Reference Range Interpretation Comments UDS Note (test code = See Note (10/21/17 9:59 UDS Note) AM) [facility] [id number] 15:59:00 Test Item Value Reference Range Interpretation Comments U Phencyc Scr (test Negative *NA*(10/21/17 code = U Phencyc Scr) 9:59 AM) [facility] [id number] 15:59:00 Test Item Value Reference Range Interpretation Comments U Cannab Scr (test Negative *NA*(10/21/17 code = U Cannab Scr) 9:59 AM) [facility] [id number] 15:59:00 Test Item Value Reference Range Interpretation Comments UDS Note (test code = See Note (10/21/17 9:59 UDS Note) AM) [facility] [id number] 15:59:00 Test Item Value Reference Range Interpretation Comments U Cocaine Scr (test Negative *NA*(10/21/17 code = U Cocaine Scr) 9:59 AM) [facility] [id number] 15:59:00 Test Item Value Reference Range Interpretation Comments U Phencyc Scr (test Negative *NA*(10/21/17 code = U Phencyc Scr) 9:59 AM) [facility] [id number] 15:59:00 Test Item Value Reference Range Interpretation Comments U Cannab Scr (test Negative *NA*(10/21/17 code = U Cannab Scr) 9:59 AM) [facility] [id number] 15:59:00 Test Item Value Reference Range Interpretation Comments U Cocaine Scr (test Negative *NA*(10/21/17 code = U Cocaine Scr) 9:59 AM) [facility] [id number] 15:59:00 Test Item Value Reference Range Interpretation Comments U Amph Scr (test code Negative *NA*(10/21/17 = U Amph Scr) 9:59 AM) [facility] [id number] 14:49:00 Test Item Value Reference Range Interpretation Comments Total CK (test code = Total CK) 371 12-191 [facility]2017-12-03 14:49:00 Test Item Value Reference Range Interpretation Comments eGFR (test code = eGFR) 103 [facility]2017-12-03 14:49:00 Test Item Value Reference Range Interpretation Comments BUN (test code = BUN) 19 7-22 [facility]2017-12-03 14:49:00 Test Item Value Reference Range Interpretation Comments Glucose Lvl (test code = Glucose Lvl) 96 70-99 [facility]2017-12-03 14:49:00 Test Item Value Reference Range Interpretation Comments Creatinine Lvl (test code = Creatinine 0.84 0.50-1.40 Lvl) [facility]2017-12-03 14:49:00 Test Item Value Reference Range Interpretation Comments Sodium Lvl (test code = Sodium Lvl) 140 135-145 [facility]2017-12-03 14:49:00 Test Item Value Reference Range Interpretation Comments Potassium Lvl (test code = Potassium 3.6 3.5-5.1 Lvl) [facility]2017-12-03 14:49:00 Test Item Value Reference Range Interpretation Comments Bili Total (test code = Bili Total) 0.2 0.2-1.3 [facility]2017-12-03 14:49:00 Test Item Value Reference Range Interpretation Comments CO2 (test code = CO2) 24 24-32 [facility]2017-12-03 14:49:00 Test Item Value Reference Range Interpretation Comments Chloride Lvl (test code = Chloride Lvl) 109 95-109 [facility]2017-12-03 14:49:00 Test Item Value Reference Range Interpretation Comments Total Protein (test code = Total 7.6 6.4-8.4 Protein) [facility]2017-12-03 14:49:00 Test Item Value Reference Range Interpretation Comments Calcium Lvl (test code = Calcium Lvl) 8.6 8.5-10.5 [facility]2017-12-03 14:49:00 Test Item Value Reference Range Interpretation Comments Albumin Lvl (test code = Albumin Lvl) 3.5 3.5-5.0 [facility]2017-12-03 14:49:00 Test Item Value Reference Range Interpretation Comments ALT (test code = ALT) 14 See_Comment [Auto mated message] The system which ge nerated this result transmit christi reference range : <=65. The reference range was not used to interpr et this result as yvonne l/abnormal. [facility]2017-12-03 14:49:00 Test Item Value Reference Range Interpretation Comments Alk Phos (test code = Alk Phos) 74 39-136 [facility]2017-12-03 14:49:00 Test Item Value Reference Range Interpretation Comments AST (test code = AST) 15 See_Comment [Auto mated message] The system which ge nerated this result transmit christi reference range : <=37. The reference range was not used to interpr et this result as yvonne l/abnormal. [facility]2017-12-03 14:49:00 Test Item Value Reference Range Interpretation Comments A/G Ratio (test code = A/G Ratio) 0.9 0.7-1.6 [facility]2017-12-03 14:49:00 Test Item Value Reference Range Interpretation Comments AGAP (test code = AGAP) 10.6 10.0-20.0 [facility]2017-12-03 14:49:00 Test Item Value Reference Range Interpretation Comments Globulin (test code = Globulin) 4.1 2.7-4.2 [facility]2017-12-03 14:49:00 Test Item Value Reference Range Interpretation Comments B/C Ratio (test code = B/C Ratio) 23 6-25 [id number] 14:49:00 Test Item Value Reference Range Interpretation Comments MCHC (test code = MCHC) 33.2 32.0-36.0 [facility] Cent[id number] 14:49:00 Test Item Value Reference Range Interpretation Comments Platelet (test code = Platelet) 136 133-450 [facility] CenterNqblimuQFZCJIJQYL7129-09-77 14:49:00 Test Item Value Reference Range Interpretation Comments RDW (test code = RDW) 14.5 11.5-14.5 [facility] C[id number] 14:49:00 Test Item Value Reference Range Interpretation Comments MPV (test code = MPV) 7.0 7.4-10.4 [facility] Cent[id number] 14:49:00 Test Item Value Reference Range Interpretation Comments WBC (test code = WBC) 4.8 3.7-10.4 [facility] CenterHhkdyzqZRKKIKBXGR1567-81-07 14:49:00 Test Item Value Reference Range Interpretation Comments MCH (test code = MCH) 28.2 pg 27.0-31.0 [facility] CenterWqhhsbkWGCRQTHCXH2845-17-11 14:49:00 Test Item Value Reference Range Interpretation Comments MCV (test code = MCV) 85.1 80.0-94.0 [facility] CenterFonieutKRGVRRSRPM7811-50-61 14:49:00 Test Item Value Reference Range Interpretation Comments Hct (test code = Hct) 40.1 42.0-54.0 [facility] CenterWygewieSWDOIBLMCD6049-75-59 14:49:00 Test Item Value Reference Range Interpretation Comments Hgb (test code = Hgb) 13.3 14.0-18.0 [facility] CenterTlhjgnbGBVILMYADB7095-43-55 14:49:00 Test Item Value Reference Range Interpretation Comments RBC (test code = RBC) 4.71 4.70-6.[address] [facility] [id number] 14:49:00 Test Item Value Reference Range Interpretation Comments Total CK (test code = Total CK) 371 12-191 [facility]2017-12-03 14:49:00 Test Item Value Reference Range Interpretation Comments eGFR (test code = eGFR) 103 [facility] CenterWqyxwxxDMAELSYXIT3861-13-82 14:49:00 Test Item Value Reference Range Interpretation Comments Segs (test code = Segs) 52.6 45.0-75.0 [facility]2017-12-03 14:49:00 Test Item Value Reference Range Interpretation Comments BUN (test code = BUN) 19 7-22 [facility]2017-12-03 14:49:00 Test Item Value Reference Range Interpretation Comments Glucose Lvl (test code = Glucose Lvl) 96 70-99 [facility]2017-12-03 14:49:00 Test Item Value Reference Range Interpretation Comments Creatinine Lvl (test code = Creatinine 0.84 0.50-1.40 Lvl) [facility]2017-12-03 14:49:00 Test Item Value Reference Range Interpretation Comments Sodium Lvl (test code = Sodium Lvl) 140 135-145 [facility]2017-12-03 14:49:00 Test Item Value Reference Range Interpretation Comments Potassium Lvl (test code = Potassium 3.6 3.5-5.1 Lvl) [facility]2017-12-03 14:49:00 Test Item Value Reference Range Interpretation Comments Bili Total (test code = Bili Total) 0.2 0.2-1.3 [facility]2017-12-03 14:49:00 Test Item Value Reference Range Interpretation Comments CO2 (test code = CO2) 24 24-32 [facility]2017-12-03 14:49:00 Test Item Value Reference Range Interpretation Comments Chloride Lvl (test code = Chloride Lvl) 109 95-109 [facility]2017-12-03 14:49:00 Test Item Value Reference Range Interpretation Comments Total Protein (test code = Total 7.6 6.4-8.4 Protein) [facility]2017-12-03 14:49:00 Test Item Value Reference Range Interpretation Comments Calcium Lvl (test code = Calcium Lvl) 8.6 8.5-10.5 [facility] Cent[id number] 14:49:00 Test Item Value Reference Range Interpretation Comments Monocytes (test code = Monocytes) 7.9 2.0-12.0 [facility]2017-12-03 14:49:00 Test Item Value Reference Range Interpretation Comments Albumin Lvl (test code = Albumin Lvl) 3.5 3.5-5.0 [facility]2017-12-03 14:49:00 Test Item Value Reference Range Interpretation Comments ALT (test code = ALT) 14 See_Comment [Auto mated message] The system which ge nerated this result transmit christi reference range : <=65. The reference range was not used to interpr et this result as yvonne l/abnormal. [facility]2017-12-03 14:49:00 Test Item Value Reference Range Interpretation Comments Alk Phos (test code = Alk Phos) 74 39-136 [facility]2017-12-03 14:49:00 Test Item Value Reference Range Interpretation Comments AST (test code = AST) 15 See_Comment [Auto mated message] The system which ge nerated this result transmit christi reference range : <=37. The reference range was not used to interpr et this result as yvonne l/abnormal. [facility]2017-12-03 14:49:00 Test Item Value Reference Range Interpretation Comments A/G Ratio (test code = A/G Ratio) 0.9 0.7-1.6 [facility]2017-12-03 14:49:00 Test Item Value Reference Range Interpretation Comments AGAP (test code = AGAP) 10.6 10.0-20.0 [facility]2017-12-03 14:49:00 Test Item Value Reference Range Interpretation Comments Globulin (test code = Globulin) 4.1 2.7-4.2 [facility]2017-12-03 14:49:00 Test Item Value Reference Range Interpretation Comments B/C Ratio (test code = B/C Ratio) 23 6-25 [facility] CenterKjekdmdQHTSVTSKIB1710-88-49 14:49:00 Test Item Value Reference Range Interpretation Comments MCHC (test code = MCHC) 33.2 32.0-36.0 [facility] CenterChzwwlwTGEYILFXMH2700-54-34 14:49:00 Test Item Value Reference Range Interpretation Comments Platelet (test code = Platelet) 136 133-450 [facility] CenterIxjxatiQUFOTPTKPI0412-15-67 14:49:00 Test Item Value Reference Range Interpretation Comments Lymphocytes (test code = Lymphocytes) 38.4 20.0-40.0 [facility] CenterLameaecFPMTWBOBYM6320-50-01 14:49:00 Test Item Value Reference Range Interpretation Comments RDW (test code = RDW) 14.5 11.5-14.5 [facility] CenterCsgbmugLSRTQOXHBF4394-36-92 14:49:00 Test Item Value Reference Range Interpretation Comments MPV (test code = MPV) 7.0 7.4-10.4 [facility] CenterIlixrozLMTDYQFFPI2093-30-55 14:49:00 Test Item Value Reference Range Interpretation Comments WBC (test code = WBC) 4.8 3.7-10.4 [facility] CenterTxwdqvzTFUJGKSGHW7793-25-83 14:49:00 Test Item Value Reference Range Interpretation Comments MCH (test code = MCH) 28.2 pg 27.0-31.0 [place] 528407-12-03 14:49:00 Test Item Value Reference Range Interpretation Comments MCV (test code = MCV) 85.1 80.0-94.0 [facility] CenterKcsajncEKIPVEDTBR6932-72-05 14:49:00 Test Item Value Reference Range Interpretation Comments Hct (test code = Hct) 40.1 42.0-54.0 [facility] CenterRqsfkqgUVXGJFEJWQ8231-06-86 14:49:00 Test Item Value Reference Range Interpretation Comments Hgb (test code = Hgb) 13.3 14.0-18.0 [facility] CenterDbgugvlCIMJZKVLYK1733-10-67 14:49:00 Test Item Value Reference Range Interpretation Comments RBC (test code = RBC) 4.71 4.70-6.10 [facility] CenterInoojagZBJDJBHOSX2125-01-04 14:49:00 Test Item Value Reference Range Interpretation Comments Segs (test code = Segs) 52.6 45.0-75.0 [facility] CenterZvsgtpoWSETIDAYJV9832-57-35 14:49:00 Test Item Value Reference Range Interpretation Comments Monocytes (test code = Monocytes) 7.9 2.0-12.0 [facility] CenterCxzbqgiOBHONFBZTP0946-40-47 14:49:00 Test Item Value Reference Range Interpretation Comments Segs-Bands # (test code = Segs-Bands #) 2.5 1.5-8.1 [facility] CenterCznymtqQCSSQAZUNC1921-05-59 14:49:00 Test Item Value Reference Range Interpretation Comments Lymphocytes (test code = Lymphocytes) 38.4 20.0-40.0 [facility] CenterJuhmcruMYSQFMQJTI1228-10-69 14:49:00 Test Item Value Reference Range Interpretation Comments Segs-Bands # (test code = Segs-Bands #) 2.5 1.5-8.1 [facility] CenterFgutnnvAJSUVSZTLS1979-51-95 14:49:00 Test Item Value Reference Range Interpretation Comments Monocytes # (test code 0.4 See_Comment [Aut omated message] The = Monocytes #) system which generated this result tra nsmitted reference range : <=0.8. The reference r robbie was not used to int erpret this result as normal/abnormal . [facility] CenterZskaailTIJCIDMZXS4288-23-17 14:49:00 Test Item Value Reference Range Interpretation Comments Eosinophils (test code = 0.7 See_Comment [A utomated message] The Eosinophils) system which ge nerated this result tra nsmitted reference range : <=4.0. The reference r robbie was not used to int erpret this result as normal/abnormal . [facility] CenterPqdfuwiLEMTNYRGPO9542-52-37 14:49:00 Test Item Value Reference Range Interpretation Comments Basophils (test code = 0.4 See_Comment [Aut omated message] The Basophils) system which ge nerated this result tra nsmitted reference range : <=1.0. The reference r robbie was not used to int erpret this result as normal/abnormal . [facility] CenterUztaxcqVYBRHBCGET5451-19-76 14:49:00 Test Item Value Reference Range Interpretation Comments Lymphocytes # (test code = Lymphocytes 1.9 1.0-5.5 #) [place] [id number] 14:49:00 Test Item Value Reference Range Interpretation Comments Etoh (%) (test code = Etoh (%)) no gt [place] 250507-12-03 14:49:00 Test Item Value Reference Range Interpretation Comments Ethanol Lvl (test code = Ethanol Lvl) no gt [place] [id number] 14:49:00 Test Item Value Reference Range Interpretation Comments Valproic Acid Lvl (test code = Valproic 79 50-100 Acid Lvl) [facility] CenterVdfwwtvBGTKEYVCVG2823-10-44 14:49:00 Test Item Value Reference Range Interpretation Comments Monocytes # (test code 0.4 See_Comment [Aut omated message] The = Monocytes #) system which generated this result tra nsmitted reference range : <=0.8. The reference r robbie was not used to int erpret this result as normal/abnormal . [facility] CenterRgvhdpfFDRWJTQZHH9696-44-58 14:49:00 Test Item Value Reference Range Interpretation Comments Eosinophils (test code = 0.7 See_Comment [A utomated message] The Eosinophils) system which ge nerated this result tra nsmitted reference range : <=4.0. The reference r robbie was not used to int erpret this result as normal/abnormal . [facility] CenterRluqgxjSZRQMNKRGL1548-88-36 14:49:00 Test Item Value Reference Range Interpretation Comments Basophils (test code = 0.4 See_Comment [Aut omated message] The Basophils) system which ge nerated this result tra nsmitted reference range : <=1.0. The reference r robbie was not used to int erpret this result as normal/abnormal . [facility]XlpaevuKCCZEGLRSY7172-90-80 14:49:00 Test Item Value Reference Range Interpretation Comments Lymphocytes # (test code = Lymphocytes 1.9 1.0-5.5 #) [facility]GIFSMUNSPP2730-65-91 14:49:00 Test Item Value Reference Range Interpretation Comments Etoh (%) (test code = Etoh (%)) [facility]t [facility]neQPCQMZYRXD7483-78-69 14:49:00 Test Item Value Reference Range Interpretation Comments Ethanol Lvl (test code = Ethanol Lvl) no gt [facility]fieldEhunyuoAMXEQXUPAP4056-26-25 14:49:00 Test Item Value Reference Range Interpretation Comments Valproic Acid Lvl (test code = Valproic 79 50-100 Acid Lvl) [facility] ZHTELDW6707-14-09 14:49:00 Test Item Value Reference Range Interpretation Comments Total CK (test code = Total CK) 371 12-191 [facility]2017-12-03 14:49:00 Test Item Value Reference Range Interpretation Comments eGFR (test code = eGFR) 103 [facility]2017-12-03 14:49:00 Test Item Value Reference Range Interpretation Comments BUN (test code = BUN) 19 7-22 [facility]2017-12-03 14:49:00 Test Item Value Reference Range Interpretation Comments Glucose Lvl (test code = Glucose Lvl) 96 70-99 [facility]2017-12-03 14:49:00 Test Item Value Reference Range Interpretation Comments Creatinine Lvl (test code = Creatinine 0.84 0.50-1.40 Lvl) [facility]2017-12-03 14:49:00 Test Item Value Reference Range Interpretation Comments Sodium Lvl (test code = Sodium Lvl) 140 135-145 [facility]2017-12-03 14:49:00 Test Item Value Reference Range Interpretation Comments Potassium Lvl (test code = Potassium 3.6 3.5-5.1 Lvl) [facility]2017-12-03 14:49:00 Test Item Value Reference Range Interpretation Comments Bili Total (test code = Bili Total) 0.2 0.2-1.3 [facility]2017-12-03 14:49:00 Test Item Value Reference Range Interpretation Comments CO2 (test code = CO2) 24 24-32 [facility]2017-12-03 14:49:00 Test Item Value Reference Range Interpretation Comments Chloride Lvl (test code = Chloride Lvl) 109 95-109 [facility]2017-12-03 14:49:00 Test Item Value Reference Range Interpretation Comments Total Protein (test code = Total 7.6 6.4-8.4 Protein) [facility]2017-12-03 14:49:00 Test Item Value Reference Range Interpretation Comments Calcium Lvl (test code = Calcium Lvl) 8.6 8.5-10.5 [facility]2017-12-03 14:49:00 Test Item Value Reference Range Interpretation Comments Albumin Lvl (test code = Albumin Lvl) 3.5 3.5-5.0 [facility]2017-12-03 14:49:00 Test Item Value Reference Range Interpretation Comments ALT (test code = ALT) 14 See_Comment [Auto mated message] The system which ge nerated this result transmit christi reference range : <=65. The reference range was not used to interpr et this result as yvonne l/abnormal. [facility]2017-12-03 14:49:00 Test Item Value Reference Range Interpretation Comments Alk Phos (test code = Alk Phos) 74 39-136 [facility]2017-12-03 14:49:00 Test Item Value Reference Range Interpretation Comments AST (test code = AST) 15 See_Comment [Auto mated message] The system which ge nerated this result transmit christi reference range : <=37. The reference range was not used to interpr et this result as yvonne l/abnormal. [facility]2017-12-03 14:49:00 Test Item Value Reference Range Interpretation Comments A/G Ratio (test code = A/G Ratio) 0.9 0.7-1.6 [place] 747017-12-03 14:49:00 Test Item Value Reference Range Interpretation Comments AGAP (test code = AGAP) 10.6 10.0-20.0 [facility]2017-12-03 14:49:00 Test Item Value Reference Range Interpretation Comments Globulin (test code = Globulin) 4.1 2.7-4.2 [facility]2017-12-03 14:49:00 Test Item Value Reference Range Interpretation Comments B/C Ratio (test code = B/C Ratio) 23 6-25 [facility]eywqftANVEUSSZRG7105-56-73 14:49:00 Test Item Value Reference Range Interpretation Comments MCHC (test code = MCHC) 33.2 32.0-36.0 [facility]XkncxfdFHWZIJDNAL0253-50-77 14:49:00 Test Item Value Reference Range Interpretation Comments Platelet (test code = Platelet) 136 133-450 [facility] CenterLqwvqfnPVLSHRUEOF1441-56-13 14:49:00 Test Item Value Reference Range Interpretation Comments RDW (test code = RDW) 14.5 11.5-14.5 [facility] CenterEsgjfyfWKJBQNPPKN2217-96-04 14:49:00 Test Item Value Reference Range Interpretation Comments MPV (test code = MPV) 7.0 7.4-10.4 [facility] CenterBaxkbupLWZVOCBIBP2357-72-01 14:49:00 Test Item Value Reference Range Interpretation Comments WBC (test code = WBC) 4.8 3.7-10.4 [facility] CenterJwxxttkWWSRKLTYXD6382-46-45 14:49:00 Test Item Value Reference Range Interpretation Comments MCH (test code = MCH) 28.2 pg 27.0-31.0 [facility] CenterTvfjfvqSSOCODYUWF2391-10-16 14:49:00 Test Item Value Reference Range Interpretation Comments MCV (test code = MCV) 85.1 80.0-94.0 [facility] CenterIxefwxdEVAJHVSROA3844-92-10 14:49:00 Test Item Value Reference Range Interpretation Comments Hct (test code = Hct) 40.1 42.0-54.0 [facility] CenterMucymmaEVWCJUPUZL3027-97-28 14:49:00 Test Item Value Reference Range Interpretation Comments Hgb (test code = Hgb) 13.3 14.0-18.0 [facility] CenterAiypwhlOIDLBIBWHX6875-99-92 14:49:00 Test Item Value Reference Range Interpretation Comments RBC (test code = RBC) 4.71 4.70-6.10 [facility] CenterDirrxdnYUZOFSVQFE5135-42-36 14:49:00 Test Item Value Reference Range Interpretation Comments Segs (test code = Segs) 52.6 45.0-75.0 [facility] CenterEeyhknuXIDBGVUOSL1412-80-20 14:49:00 Test Item Value Reference Range Interpretation Comments Monocytes (test code = Monocytes) 7.9 2.0-12.0 [facility] CenterYarghbiZFDPLKBWZZ4971-43-59 14:49:00 Test Item Value Reference Range Interpretation Comments Lymphocytes (test code = Lymphocytes) 38.4 20.0-40.0 [facility] CenterYjxxtueZUVUPKCWDJ1619-52-60 14:49:00 Test Item Value Reference Range Interpretation Comments Segs-Bands # (test code = Segs-Bands #) 2.5 1.5-8.1 [facility] CenterUrvtcudWRKKHWFZWV5288-02-39 14:49:00 Test Item Value Reference Range Interpretation Comments Monocytes # (test code 0.4 See_Comment [Aut omated message] The = Monocytes #) system which generated this result tra nsmitted reference range : <=0.8. The reference r robbie was not used to int erpret this result as normal/abnormal . [facility] CenterQjeegoiPTGGGEWGYY6219-35-34 14:49:00 Test Item Value Reference Range Interpretation Comments Eosinophils (test code = 0.7 See_Comment [A utomated message] The Eosinophils) system which ge nerated this result tra nsmitted reference range : <=4.0. The reference r robbie was not used to int erpret this result as normal/abnormal . [facility] CenterXomahfmLVFIQLJTDW4785-80-90 14:49:00 Test Item Value Reference Range Interpretation Comments Basophils (test code = 0.4 See_Comment [Aut omated message] The Basophils) system which ge nerated this result tra nsmitted reference range : <=1.0. The reference r robbie was not used to int erpret this result as normal/abnormal . [facility] CenterGxxqxtkNDZKUTBPOW7913-69-22 14:49:00 Test Item Value Reference Range Interpretation Comments Lymphocytes # (test code = Lymphocytes 1.9 1.0-5.5 #) [place] [id number] 14:49:00 Test Item Value Reference Range Interpretation Comments Etoh (%) (test code = Etoh (%)) no gt [place] [id number] 14:49:00 Test Item Value Reference Range Interpretation Comments Ethanol Lvl (test code = Ethanol Lvl) [facility]0854[facility]89 14:49:00 Test Item Value Reference Range Interpretation Comments Valproic Acid Lvl (test code = Valproic 79 50-100 Acid Lvl) [facility] NKZRSDR3303-58-26 14:49:00 Test Item Value Reference Range Interpretation Comments Total CK (test code = Total CK) 371 12-191 [facility] CPVVE0912-43-15 14:49:00 Test Item Value Reference Range Interpretation Comments eGFR (test code = eGFR) 103 [facility]2017-12-03 14:49:00 Test Item Value Reference Range Interpretation Comments BUN (test code = BUN) 19 7-22 [facility]2017-12-03 14:49:00 Test Item Value Reference Range Interpretation Comments Glucose Lvl (test code = Glucose Lvl) 96 70-99 [facility]2017-12-03 14:49:00 Test Item Value Reference Range Interpretation Comments Creatinine Lvl (test code = Creatinine 0.84 0.50-1.40 Lvl) [facility]2017-12-03 14:49:00 Test Item Value Reference Range Interpretation Comments Sodium Lvl (test code = Sodium Lvl) 140 135-145 [facility]2017-12-03 14:49:00 Test Item Value Reference Range Interpretation Comments Potassium Lvl (test code = Potassium 3.6 3.5-5.1 Lvl) [facility]2017-12-03 14:49:00 Test Item Value Reference Range Interpretation Comments Bili Total (test code = Bili Total) 0.2 0.2-1.3 [facility]2017-12-03 14:49:00 Test Item Value Reference Range Interpretation Comments CO2 (test code = CO2) 24 24-32 [facility]2017-12-03 14:49:00 Test Item Value Reference Range Interpretation Comments Chloride Lvl (test code = Chloride Lvl) 109 95-109 [facility]2017-12-03 14:49:00 Test Item Value Reference Range Interpretation Comments Total Protein (test code = Total 7.6 6.4-8.4 Protein) [facility]2017-12-03 14:49:00 Test Item Value Reference Range Interpretation Comments Calcium Lvl (test code = Calcium Lvl) 8.6 8.5-10.5 [facility]2017-12-03 14:49:00 Test Item Value Reference Range Interpretation Comments Albumin Lvl (test code = Albumin Lvl) 3.5 3.5-5.0 [facility]2017-12-03 14:49:00 Test Item Value Reference Range Interpretation Comments ALT (test code = ALT) 14 See_Comment [Auto mated message] The system which ge nerated this result transmit christi reference range : <=65. The reference range was not used to interpr et this result as yvonne l/abnormal. [facility]2017-12-03 14:49:00 Test Item Value Reference Range Interpretation Comments Alk Phos (test code = Alk Phos) 74 39-136 [facility]2017-12-03 14:49:00 Test Item Value Reference Range Interpretation Comments AST (test code = AST) 15 See_Comment [Auto mated message] The system which ge nerated this result transmit christi reference range : <=37. The reference range was not used to interpr et this result as yvonne l/abnormal. [facility]2017-12-03 14:49:00 Test Item Value Reference Range Interpretation Comments A/G Ratio (test code = A/G Ratio) 0.9 0.7-1.6 [facility]2017-12-03 14:49:00 Test Item Value Reference Range Interpretation Comments AGAP (test code = AGAP) 10.6 10.0-20.0 [facility]2017-12-03 14:49:00 Test Item Value Reference Range Interpretation Comments Globulin (test code = Globulin) 4.1 2.7-4.2 [facility]2017-12-03 14:49:00 Test Item Value Reference Range Interpretation Comments B/C Ratio (test code = B/C Ratio) 23 6-25 [facility] CenterVnlyasuWZVVVAJKTU1487-40-26 14:49:00 Test Item Value Reference Range Interpretation Comments MCHC (test code = MCHC) 33.2 32.0-36.0 [facility] CenterFollblcCEFTYMNJVL1898-63-01 14:49:00 Test Item Value Reference Range Interpretation Comments Platelet (test code = Platelet) 136 133-450 [place] 528407-12-03 14:49:00 Test Item Value Reference Range Interpretation Comments RDW (test code = RDW) 14.5 11.5-14.5 [facility] CenterDoigbruQKQFDMPMUP8306-50-06 14:49:00 Test Item Value Reference Range Interpretation Comments MPV (test code = MPV) 7.0 7.4-10.4 [facility] CenterXkbcnjbECIYQCONBW4266-56-54 14:49:00 Test Item Value Reference Range Interpretation Comments WBC (test code = WBC) 4.8 3.7-10.4 [facility] CenterMekmgyvXQJMJEXXIA3781-96-51 14:49:00 Test Item Value Reference Range Interpretation Comments MCH (test code = MCH) 28.2 pg 27.0-31.0 [facility] CenterElatrydRGABSMSGRS5742-08-79 14:49:00 Test Item Value Reference Range Interpretation Comments MCV (test code = MCV) 85.1 80.0-94.0 [facility] CenterPjdgkzrJDLWVKYQNI5621-28-55 14:49:00 Test Item Value Reference Range Interpretation Comments Hct (test code = Hct) 40.1 42.0-54.0 [facility] CenterAfccrlmSLSWSIJFTV2202-10-23 14:49:00 Test Item Value Reference Range Interpretation Comments Hgb (test code = Hgb) 13.3 14.0-18.0 [facility] CenterAfuekitOSJJPXTDFO5368-46-70 14:49:00 Test Item Value Reference Range Interpretation Comments RBC (test code = RBC) 4.71 4.70-6.10 [facility] CenterHkimnhzOSZINYCVQA1034-44-18 14:49:00 Test Item Value Reference Range Interpretation Comments Segs (test code = Segs) 52.6 45.0-75.0 [facility] CenterDrtvdqyEBYDKNNRIK9350-49-52 14:49:00 Test Item Value Reference Range Interpretation Comments Monocytes (test code = Monocytes) 7.9 2.0-12.0 [facility] CenterZujrynjBJODSHDAIV3078-55-36 14:49:00 Test Item Value Reference Range Interpretation Comments Lymphocytes (test code = Lymphocytes) 38.4 20.0-40.0 [place] [address]-12-03 14:49:00 Test Item Value Reference Range Interpretation Comments Segs-Bands # (test code = Segs-Bands #) 2.5 1.5-8.1 [facility] CenterPwvjvayOIQPXKKECK7730-92-52 14:49:00 Test Item Value Reference Range Interpretation Comments Monocytes # (test code 0.4 See_Comment [Aut omated message] The = Monocytes #) system which generated this result tra nsmitted reference range : <=0.8. The reference r robbie was not used to int erpret this result as normal/abnormal . [facility] CenterOkforijLRTXRNPYXD3020-35-62 14:49:00 Test Item Value Reference Range Interpretation Comments Eosinophils (test code = 0.7 See_Comment [A utomated message] The Eosinophils) system which ge nerated this result tra nsmitted reference range : <=4.0. The reference r robbie was not used to int erpret this result as normal/abnormal . [facility] CenterAnrgdajFNFZJDBJMX5989-11-65 14:49:00 Test Item Value Reference Range Interpretation Comments Basophils (test code = 0.4 See_Comment [Aut omated message] The Basophils) system which ge nerated this result tra nsmitted reference range : <=1.0. The reference r robbie was not used to int erpret this result as normal/abnormal . [facility]ufdriiIWZQJBZZAJ0186-[facility] 14:49:00 Test Item Value Reference Range Interpretation Comments Lymphocytes # (test code = Lymphocytes 1.9 1.0-5.5 #) [facility]rfyhxlXLGQSKFRHH9423-25-17 14:49:00 Test Item Value Reference Range Interpretation Comments Etoh (%) (test code = Etoh (%)) [facility]EmxxgpyMNNDMJJEEC6080-98-55 14:49:00 Test Item Value Reference Range Interpretation Comments Ethanol Lvl (test code = Ethanol Lvl) no gt [facility] HospitalUjdbdvtUFJSBQNIMR7032-45-27 14:49:00 Test Item Value Reference Range Interpretation Comments Valproic Acid Lvl (test code = Valproic 79 50-100 Acid Lvl) [facility] OLHNIUP4028-92-97 14:49:00 Test Item Value Reference Range Interpretation Comments Total CK (test code = Total CK) 371 12-[address] [facility] EZXDR3776-32-31 14:49:00 Test Item Value Reference Range Interpretation Comments eGFR (test code = eGFR) [address] [facility] ZPUEB2897-16-63 14:49:00 Test Item Value Reference Range Interpretation Comments BUN (test code = BUN) 19 7-[address] [facility] TWOAHLH5036-66-71 14:49:00 Test Item Value Reference Range Interpretation Comments Total CK (test code = Total CK) 371 12-191 [facility] HKHMG9165-39-47 14:49:00 Test Item Value Reference Range Interpretation Comments eGFR (test code = eGFR) 103 [facility]2017-12-03 14:49:00 Test Item Value Reference Range Interpretation Comments BUN (test code = BUN) 19 7- [facility]2017-12-03 14:49:00 Test Item Value Reference Range Interpretation Comments Glucose Lvl (test code = Glucose Lvl) 96 70-99 [facility]2017-12-03 14:49:00 Test Item Value Reference Range Interpretation Comments Creatinine Lvl (test code = Creatinine 0.84 0.50-1.40 Lvl) [facility]2017-12-03 14:49:00 Test Item Value Reference Range Interpretation Comments Sodium Lvl (test code = Sodium Lvl) 140 135-145 [facility]2017-12-03 14:49:00 Test Item Value Reference Range Interpretation Comments Potassium Lvl (test code = Potassium 3.6 3.5-5.1 Lvl) [facility]2017-12-03 14:49:00 Test Item Value Reference Range Interpretation Comments Glucose Lvl (test code = Glucose Lvl) 96 70-99 [facility]2017-12-03 14:49:00 Test Item Value Reference Range Interpretation Comments Bili Total (test code = Bili Total) 0.2 0.2-1.3 [facility]2017-12-03 14:49:00 Test Item Value Reference Range Interpretation Comments CO2 (test code = CO2) 24 24-32 [facility]2017-12-03 14:49:00 Test Item Value Reference Range Interpretation Comments Chloride Lvl (test code = Chloride Lvl) 109 95-109 [facility]2017-12-03 14:49:00 Test Item Value Reference Range Interpretation Comments Total Protein (test code = Total 7.6 6.4-8.4 Protein) [facility]2017-12-03 14:49:00 Test Item Value Reference Range Interpretation Comments Calcium Lvl (test code = Calcium Lvl) 8.6 8.5-10.5 [facility]2017-12-03 14:49:00 Test Item Value Reference Range Interpretation Comments Albumin Lvl (test code = Albumin Lvl) 3.5 3.5-5.0 [facility]2017-12-03 14:49:00 Test Item Value Reference Range Interpretation Comments ALT (test code = ALT) 14 See_Comment [Auto mated message] The system which ge nerated this result transmit christi reference range : <=65. The reference range was not used to interpr et this result as yvonne l/abnormal. [facility]2017-12-03 14:49:00 Test Item Value Reference Range Interpretation Comments Alk Phos (test code = Alk Phos) 74 39-136 [facility]2017-12-03 14:49:00 Test Item Value Reference Range Interpretation Comments AST (test code = AST) 15 See_Comment [Auto mated message] The system which ge nerated this result transmit christi reference range : <=37. The reference range was not used to interpr et this result as yvonne l/abnormal. [facility]2017-12-03 14:49:00 Test Item Value Reference Range Interpretation Comments A/G Ratio (test code = A/G Ratio) 0.9 0.7-1.6 [facility]2017-12-03 14:49:00 Test Item Value Reference Range Interpretation Comments Creatinine Lvl (test code = Creatinine 0.84 0.50-1.40 Lvl) [facility]2017-12-03 14:49:00 Test Item Value Reference Range Interpretation Comments AGAP (test code = AGAP) 10.6 10.0-20.0 [facility]2017-12-03 14:49:00 Test Item Value Reference Range Interpretation Comments Globulin (test code = Globulin) 4.1 2.7-4.2 [facility]2017-12-03 14:49:00 Test Item Value Reference Range Interpretation Comments B/C Ratio (test code = B/C Ratio) 23 6-25 [facility] CenterVwxdtisYCCZIPLDKT1864-81-51 14:49:00 Test Item Value Reference Range Interpretation Comments MCHC (test code = MCHC) 33.2 32.0-36.0 [facility] CenterMdaamvwTPQFQDZAUV3876-33-78 14:49:00 Test Item Value Reference Range Interpretation Comments Platelet (test code = Platelet) 136 133-450 [facility] CenterXnfzdcyJXSLQUHSNG7688-91-25 14:49:00 Test Item Value Reference Range Interpretation Comments RDW (test code = RDW) 14.5 11.5-14.5 [facility] CenterWjuxspgAHJSKLHDAN8281-95-92 14:49:00 Test Item Value Reference Range Interpretation Comments MPV (test code = MPV) 7.0 7.4-10.4 [facility] CenterSmsoyakCRCIDPYCSU4175-06-87 14:49:00 Test Item Value Reference Range Interpretation Comments WBC (test code = WBC) 4.8 3.7-10.4 [facility] CenterIhajlxgIBAFRPRHIK5933-55-83 14:49:00 Test Item Value Reference Range Interpretation Comments MCH (test code = MCH) 28.2 pg 27.0-31.0 [facility] CenterLsbbnakEDCWUZKPPQ9132-15-86 14:49:00 Test Item Value Reference Range Interpretation Comments MCV (test code = MCV) 85.1 80.0-94.0 [facility]2017-12-03 14:49:00 Test Item Value Reference Range Interpretation Comments Sodium Lvl (test code = Sodium Lvl) 140 135-145 [facility] CenterVxuafgpNFOTXHBWVT2264-42-10 14:49:00 Test Item Value Reference Range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
[2023-06-30] MEDS ORDERED: LIDOCAINE HCL/EPINEPHRINE 20 ML MDV ONE (03:03)
[2023-06-30] MEDS ORDERED: TDAP (DIPHTH,PERTUSS(ACELL),TET VAC) 0.5 ML VIAL IMVAC ONE (03:23)
[2023-06-30] MEDS ORDERED: CEPHALEXIN 250 MG CAP ONE (03:23)
[2023-06-30] MEDS ORDERED: MUPIROCIN 2% OINT 22GM TUBE TOP ONE (03:23)
--- NOTE | 2023-06-30 03:27 | EDPHYS ---
Physician Documentation [facility] Name: Rajat Camacho Age: 53 yrs Sex: Male : 1970 Arrival Date: 06/30/2023 Time: 02:16 Bed 4 Private MD: ED Physician Tee Duncan HPI: 06/30 03:21 This 53 yrs old Male presents to ER via Wheelchair with complaints of Fall michi Injury, Laceration To Leg. 03:21 Details of fall: The patient fell from seated position, off the edge of a bed. Onset: michi The symptoms/episode began/occurred just prior to arrival. Associated injuries: The patient sustained left hirsch, laceration, painful injury. Severity of symptoms: At their worst the symptoms were mild, in the emergency department the symptoms are unchanged. The patient has not experienced similar symptoms in the past. Historical: - Allergies: 02:49 PENICILLINS; kl - PMHx: 02:49 Diabetes - NIDDM; epilepsy; kl - PSHx: 02:49 Appendectomy; back; kl - Immunization history:: Client reports receiving the 2nd dose of the Covid vaccine, Last tetanus immunization: > 10 years ago Pneumococcal vaccine is not up to date, Flu vaccine is not up to date. - Social history:: Smoking status: Patient denies any tobacco usage or history of. ROS: 03:22 Constitutional: Negative for fever, chills, and weight loss, Eyes: Negative for injury, michi pain, redness, and discharge, ENT: Negative for injury, pain, and discharge, Neck: Negative for injury, pain, and swelling, Cardiovascular: Negative for chest pain, palpitations, and edema, Respiratory: Negative for shortness of breath, cough, wheezing, and pleuritic chest pain, Abdomen/GI: Negative for abdominal pain, nausea, vomiting, diarrhea, and constipation, Back: Negative for injury and pain, : Negative for injury, bleeding, discharge, and swelling, Skin: Negative for injury, rash, and discoloration, Neuro: Negative for headache, weakness, numbness, tingling, and seizure, Psych: Negative for depression, anxiety, suicide ideation, homicidal ideation, and hallucinations, Allergy/Immunology: Negative for hives, rash, and allergies, Endocrine: Negative for neck swelling, polydipsia, polyuria, polyphagia, and marked weight changes, Hematologic/Lymphatic: Negative for swollen nodes, abnormal bleeding, and unusual bruising. 03:22 MS/extremity: Positive for injury or acute deformity, laceration, of the left hirsch. Exam: 03:22 Constitutional: This is a well developed, well nourished patient who is awake, alert, michi and in no acute distress. Head/Face: Normocephalic, atraumatic. Eyes: Pupils equal round and reactive to light, extra-ocular motions intact. Lids and lashes normal. Conjunctiva and sclera are non-icteric and not injected. Cornea within normal limits. Periorbital areas with no swelling, redness, or edema. ENT: Nares patent. No nasal discharge, no septal abnormalities noted. Tympanic membranes are normal and external auditory canals are clear. Oropharynx with no redness, swelling, or masses, exudates, or evidence of obstruction, uvula midline. Mucous membranes moist. Neck: Trachea midline, no thyromegaly or masses palpated, and no cervical lymphadenopathy. Supple, full range of motion without nuchal rigidity, or vertebral point tenderness. No Meningismus. Chest/axilla: Normal chest wall appearance and motion. Nontender with no deformity. No lesions are appreciated. Cardiovascular: Regular rate and rhythm with a normal S1 and S2. No gallops, murmurs, or rubs. Normal PMI, no JVD. No pulse deficits. Respiratory: Lungs have equal breath sounds bilaterally, clear to auscultation and percussion. No rales, rhonchi or wheezes noted. No increased work of breathing, no retractions or nasal flaring. Abdomen/GI: Soft, non-tender, with normal bowel sounds. No distension or tympany. No guarding or rebound. No evidence of tenderness throughout. Back: No spinal tenderness. No costovertebral tenderness. Full range of motion. Male : Normal genitalia with no discharge or lesions. Neuro: Awake and alert, GCS 15, oriented to person, place, time, and situation. Cranial nerves II-XII grossly intact. Motor strength 5/5 in all extremities. Sensory grossly intact. Cerebellar exam normal. Normal gait. Psych: Awake, alert, with orientation to person, place and time. Behavior, mood, and affect are within normal limits. 03:22 Skin: injury, laceration(s), that can be described as foreign body containing, irregular, jagged, with mild bleeding. Vital Signs: 02:42 BP 141 / 85; Pulse 85; Resp 18; Temp 98; Pulse Ox 100% ; Weight 102.51 kg; Height 6 ft. kl 2 in. ; 03:54 BP 150 / 88; Pulse 68; Resp 18; Pulse Ox 100% ; vc1 02:42 Body Mass Index 29.02 (102.51 kg, 187.96 cm) kl Laceration: 03:22 Wound Repair of 2.5cm ( 1.0in ) subcutaneous laceration to left leg and left hirsch. michi Irregularly shaped.. Skin/tissue flap noted.. Minimal contamination.. Distal neuro/vascular/tendon intact. Anesthesia: Local anesthetic administered with 8 mls of 1% lidocaine. Wound prep: Moderate cleansing by me. Skin closed with 4 4-0 Prolene using vertical mattress sutures and sterile technique. Skin closed with 1 4-0 Prolene using interrupted sutures and sterile technique. Dressed with pressure dressing, non-adherent dressing. Patient tolerated well. MDM: 02:34 Patient medically screened. [facility] 03:25 Differential diagnosis: closed fracture, contusion, abrasion, tendonitis. Differential michi diagnosis: fracture, laceration, sprain. Data reviewed: vital signs, nurses notes, radiologic studies, plain films. Consideration of Admission/Observation Escalation of care including admission/observation considered. I considered the following discharge prescriptions or medication management in the emergency department Medications were administered in the Emergency Department. See MAR. Test considered but Not performed: Labs: NO LABS. Care significantly affected by the following chronic conditions: Diabetes, EPILEPSY. 06/30 03:10 Order name: Tib Fib Left XRAY [facility] 06/30 03:10 Order name: Wound dressing; Complete Time: 03:51 michi Administered Medications: 03:21 Drug: Cephalexin PO 500 mg Route: PO; vc1 03:51 Follow up: Response: No adverse reaction vc1 03:21 Drug: Mupirocin Topical Ointment 2 % 1 application Route: Topical; Site: affected area; vc1 03:22 Not Given (Other Intervention Used): Tetanus Toxoid,Adsorbed IM 0.5 ml IM once; Provide vc1 Vaccine Information Statement (VIS). 03:22 Drug: Boostrix Tdap IM 0.5 ml Route: IM; Site: right deltoid; vc1 03:50 Follow up: Response: (VIS) Vaccine information sheet provided today. Questions and/or vc1 concerns addressed. VIS edition date: Jun 24, 2021.; No adverse reaction Disposition Summary: 06/30/23 03:26 Discharge Ordered Location: Home [facility] Problem: new michi Symptoms: have improved michi Condition: Stable michi Diagnosis - Laceration without foreign body, left lower leg michi Followup: michi - With: Private Physician - When: 5 - 6 days - Reason: Recheck today's complaints, Continuance of care, Re-evaluation by your physician Followup: michi - With: Delvin Regan MD - When: 5 - 6 days - Reason: Recheck today's complaints, Continuance of care, Re-evaluation by your physician Discharge Instructions: - Discharge Summary Sheet [facility] - Laceration Care, Adult [facility] - Laceration Care, Adult, [id number] Forms: - Medication Reconciliation Form [facility] - Thank You Letter [facility] - Antibiotic Education [facility] - Prescription Opioid Use [facility] - Patient Portal Instructions [facility] - Leadership Thank You Letter [facility] Prescriptions: - Centany 2 % Topical ointment - apply 1 application by TOPICAL route 4 times per day; 15 gram; Refills: 0, [facility] Product Selection Permitted - acetaminophen-codeine 300-30 mg Oral tablet - take 2 tablet by ORAL route every 6 hours as needed for pain; 20 tablet; [facility] Refills: 0, Product Selection Permitted - Cephalexin 500 mg Oral Capsule - take 1 capsule by ORAL route every 6 hours for 7 days; 28 capsule; Refills: 0, [facility] Product Selection Permitted Signatures: Dispatcher [employer] Yolette Foy RN RN kl Anderson, Corey, MD MD cha Calcote, Vanessa, RN RN vc1
--- NOTE | 2023-06-30 03:27 | ER ---
Nurse's Notes [facility] Name: Rajat Camacho Age: 53 yrs Sex: Male : 1970 Arrival Date: 06/30/2023 Time: 02:16 Bed 4 Private MD: Diagnosis: Laceration without foreign body, left lower leg Presentation: 06/30 02:42 Chief complaint: Spouse and/or significant other states: I left him sitting on the side kl of his bed eating I heard him yelling and found him on the floor with a cut to his left leg and a broken glass figurine on the floor. Coronavirus screen: Vaccine status: Patient reports receiving the 2nd dose of the covid vaccine. Ebola Screen: Patient negative for fever greater than or equal to 101.5 degrees Fahrenheit, and additional compatible Ebola Virus Disease symptoms. Initial Sepsis Screen: Does the patient meet any 2 criteria? No. Patient's initial sepsis screen is negative. Does the patient have a suspected source of infection? No. Patient's initial sepsis screen is negative. Risk Assessment: Do you want to hurt yourself or someone else? Patient reports no desire to harm self or others. 02:42 Method Of Arrival: Wheelchair kl 02:42 Acuity: CARLIN 3 kl 02:42 Onset of symptoms was June 30, 2023. vc1 Triage Assessment: 02:50 General: Appears in no apparent distress. comfortable, Behavior is calm, cooperative. kl Pain: Complains of pain in left hirsch. Injury Description: Laceration sustained to left hirsch. Historical: - Allergies: 02:49 PENICILLINS; kl - PMHx: 02:49 Diabetes - NIDDM; epilepsy; kl - PSHx: 02:49 Appendectomy; back; kl - Immunization history:: Client reports receiving the 2nd dose of the Covid vaccine, Last tetanus immunization: > 10 years ago Pneumococcal vaccine is not up to date, Flu vaccine is not up to date. - Social history:: Smoking status: Patient denies any tobacco usage or history of. Screenin:52 [facility] ED Fall Risk Assessment (Adult) History of falling in the last 3 months, vc1 including since admission No falls in past 3 months (0 pts) Confusion or Disorientation No (0 pts) Intoxicated or Sedated No (0 pts) Impaired Gait No (0 pts) Mobility Assist Device Used No (0 pt) Altered Elimination No (0 pt) Score/Fall Risk Level 0 - 2 = Low Risk Oriented to surroundings, Maintained a safe environment, Educated pt \T\ family on fall prevention, incl call for assistance when getting out of bed. Abuse screen: Denies threats or abuse. Nutritional screening: No deficits noted. Tuberculosis screening: No symptoms or risk factors identified. Vital Signs: 02:42 BP 141 / 85; Pulse 85; Resp 18; Temp 98; Pulse Ox 100% ; Weight 102.51 kg; Height 6 ft. kl 2 in. ; 03:54 BP 150 / 88; Pulse 68; Resp 18; Pulse Ox 100% ; vc1 02:42 Body Mass Index 29.02 (102.51 kg, 187.96 cm) ED Course: 02:17 Patient arrived in ED. [email or web address] 02:34 Tee Duncan MD is Attending Physician. [facility] 02:45 Triage completed. kl 02:52 Arm band placed on right wrist. vc1 02:52 Patient has correct armband on for positive identification. Bed in low position. vc1 03:26 Delvin Regan MD is Referral Physician. michi 03:36 Tib Fib Left XRAY In Process Unspecified. EDMS 03:51 Mel Campo, ARIANNA is Primary Nurse. vc1 03:53 Assist provider with laceration repair on left hirsch that was 2.5 cm. or less using vc1 sutures. Set up tray. Performed by Tee Duncan MD Dressed with non stick adherent pad. Patient did not have IV access during this emergency room visit. 03:56 Provided Education on: wound care, finishing antibiotics. vc1 Administered Medications: 03:21 Drug: Cephalexin PO 500 mg Route: PO; vc1 03:51 Follow up: Response: No adverse reaction vc1 03:21 Drug: Mupirocin Topical Ointment 2 % 1 application Route: Topical; Site: affected area; vc1 03:22 Not Given (Other Intervention Used): Tetanus Toxoid,Adsorbed IM 0.5 ml IM once; Provide vc1 Vaccine Information Statement (VIS). 03:22 Drug: Boostrix Tdap IM 0.5 ml Route: IM; Site: right deltoid; vc1 03:50 Follow up: Response: (VIS) Vaccine information sheet provided today. Questions and/or vc1 concerns addressed. VIS edition date: Jun 24, 2021.; No adverse reaction Medication: 03:54 VIS not applicable for this client. vc1 Outcome: 03:26 Discharge ordered by MD. borden 03:55 Discharged to home via wheelchair, with family. vc1 03:55 Condition: good 03:55 Discharge instructions given to patient, family, significant other, Instructed on discharge instructions, follow up and referral plans. medication usage, Demonstrated understanding of instructions, follow-up care, medications, Prescriptions given X 3. 03:56 Patient left the ED. vc1 Signatures: Dispatcher [employer] EDYolette Cabezas, RN RN Tee Lew MD MD cha Jeffries, Jennifer [email or web address] Mel Campo RN RN vc1 Corrections: (The following items were deleted from the chart) 03:56 03:53 Assist provider with I \T\ D: of an abscess on left vc1 vc1
[2023-06-30 04:01] VITALS: TEMP 98; O2SAT 100
[2023-06-30 04:02] VITALS: BP 150/88
--- NOTE | 2023-07-01 18:53 | RAD REPORT ---
EXAM DESCRIPTION: RAD - Tib Fib Left - 06/30/2023 3:34 am CLINICAL HISTORY: The patient is 53 years old and is Male; PAIN TECHNIQUE: Frontal and lateral views of the left tibia and fibula. COMPARISON: No relevant prior studies available. FINDINGS: Bones/joints: Unremarkable. No acute fracture. No dislocation. Soft tissues: Unremarkable. No radiopaque foreign body. IMPRESSION: No acute fracture or dislocation. Electronically signed by: Anthony Price MD 06/30/2023 3:55 AM CDT Due to temporary technical issues with the PACS/Fluency reporting system, reports are being signed by the in house radiologists without review as a courtesy to insure prompt reporting. The interpreting radiologist is fully responsible for the content of the report.
== END 2023-06-30 03:56 | disposition home or self-care (01) ==
LOC: ER 02:16
PROC: 0HQLXZZ Repair Left Lower Leg Skin, External Approach (ICD-10-PCS; principal; 2023-06-30)
DX: S81.812A Laceration without foreign body, left lower leg, initial encounter (principal); Z88.0 Allergy status to penicillin
CPT/HCPCS: 96372; 99284

== ENCOUNTER 2023-07-09 11:28 | Emergency (ER) | payer MEDICARE ==
--- OUTSIDE RECORDS SUMMARY | 2023-07-09 11:40 | XMS REPORT | Continuity of Care Document ---
:1970 Author Organization [facility] t Address [address] [facility] [address] [place] [address] Care Team Providers Name Role Phone PCP, PATIENT DOES NOT HAVE A Primary Care Physician UnavailJOHNY Rain Attending Clinician Unavailable JOHNY NEVILLE Attending Clinician Unavailable Johny Neville MD Attending Clinician Nancy Harvey Attending Clinician GC_[email or web address]_K Attending Clinician Unavailable Brianda Hernandez RN Attending Clinician Unavailable Ryan Boone MD Attending Clinician Clifford Vasquez MD Attending Clinician Ira Lopez MD Attending Clinician [phone] IRA LOPEZ Attending Clinician Unavailable Timo JOHNSON, Eunice Attending Clinician Amena Murphy MD Attending Clinician Tyrone Kee MD, Selvin Attending Clinician AMENA MURPHY Attending Clinician Unavailable Paul Ferrell MD Attending Clinician Maren OWENS Attending Clinician Unavailable Maren Lawson Attending Clinician Lab, Ang - Db Attending Clinician Unavailable Doctor Unassigned, [place] Attending Clinician Unavailable [place]INA Attending Clinician Unavailable Nilsa Valerio Attending Clinician Reina Attending Clinician Unavailable Amada Salinas Attending Clinician _[facility]_Nicole_Maren Admitting Clinician Unavailable Ira Lopez MD Admitting Clinician SELVIN HANSEN Admitting Clinician Unavailable Tyrone Kee MD, Chilvana Admitting Clinician Maren OWENS Admitting Clinician Unavailable CAROLINA Admitting Clinician Unavailable Reina Admitting Clinician Unavailable Payers Payer Name Policy Type Policy Number Effective Date Expiration Date [facility] [id number] [id number] 2023 DETENTION 00:00:00 00:00:00 [facility] [id number] [facility] (MEDICARE REPLACEMENT/ADVANTA GE - PPO) [facility] [id number] 2022 (MEDICARE 00:00:00 REPLACEMENT HMO) Problems Condition Condition Condition Status Onset Resolution Last Treating Co mments Source Name Details Category Date Date Treatment Clinician Date Obesity Obesity Disease Active Univers (BMI (BMI 6-08 ity of 30-39.9) 30-39.9) 00:00: [address] Branch Altered Altered Disease Active Univers mental mental 6-08 ity of status, status, 00:00: [place] unspecifie unspecifie 00 Me dical d altered d altered Bran ch mental mental status status type type BACK PAIN BACK PAIN Diagnosis Active 2016-112017-12-30 Memoria Active 12-22 19:21:00 l 10/21/2017 08:56: Noah lucas [address] No known No known Disease Unive rs active active ity of problems problems [facility] Diabetes Diabetes Problem Resolve 2017-10-24 Memoria mellitus mellitus d 01:45:26 l (disorder) (disorder) [facility] Resolved Problem 10/24/2017 [facility] Epilepsy Epilepsy Problem Resolve 2017-10-24 Memoria (disorder) (disorder) d 01:45:26 l Resolved [place] Problem 10/24/2017 [facility] Hyperchole Problem Resolve 2017-10-24 Memoria sterolemia Hyperchole d 01:45:26 l (disorder) sterolemia He rmann (disorder) Resolved Problem 10/24/2017 [facility] History of Past Illness Condition Condition Condition Status Onset Resolution Last Treating Co mments Source Name Details Category Date Date Treatment Clinician Date Strain of Strain Problem 2016-112017-10-24 2017-10-24 Memoria muscle, of muscle, 12-22 01:45:26 01:45:26 l fascia and fascia and 06:00: [place] tendon of tendon of 00 lower lower back, back, initial initial encounter encounter 10/21/2017 10/24/2017 [facility] Acute Acute Problem 2016-112017-10-24 2017-10-24 M emoria post-traum post-traum 12-22 01:45:26 01:45:26 l atic atic 06:00: Asael headache, headache, 00 not not intractabl intractabl e e 10/21/2017 7 [facility] Allergies, Adverse Reactions, Alerts Allergy Allergy Status Severity Reaction(s) Onset Inactive Treating Comm ents Source Name Type Date Date Clinician NO KNOWN Drug Active Univers ALLERGIE Class [facility] of [facility] [place] [facility] Social History Social Habit Start Date Stop Date Quantity Comments Source Gender identity Universit y of [facility] Sexual orientation Univer sity [facility] Medical Branch History SDUT University o f Alcohol Std Drinks [place] [facility] History [facility] University o f Alcohol Binge [place] [facility] History [facility] University o f Housing Places [facility] Branch History of Social 2023-05-29 2023-05-29 Univers ity of function 00:00:00 00:00:00 [place] [facility] Tobacco use and 2023-05-29 2023-05-29 Smokeless Universit y of exposure 00:00:00 00:00:00 tobacco non-user [facility] dical Branch History [facility] 2023-04-27 2023-04-27 1 University o f Alcohol Frequency 00:00:00 00:00:00 [place] M edical Branch History [facility] 2023-04-27 2023-04-27 2 University o f Transport Med 00:00:00 00:00:00 [place] [facility] al Branch History SDOH 2023-04-27 2023-04-27 2 University o f Transport Non-Med 00:00:00 00:00:00 [place] M edical Branch History SDOH 2023-04-27 2023-04-27 2 University o f Housing Unable to 00:00:00 00:00:00 [place] M edical Pay Branch History SDOH 2023-04-27 2023-04-27 2 University o f Housing Homeless 00:00:00 00:00:00 [facility] dical Last Year Branch Exposure to 2023-04-04 2023-04-14 Not sure [facility] SARS-CoV-2 (event) 00:00:00 21:51:00 [facility] Sex Ass[birth year] At [birth year] Universit y of 00:00:00 00:00:00 [facility] Smoking Status Start Date Stop Date Source Social History [facility] Medications Ordered Filled Start Stop Current Ordering Indication Dosage Frequency Signature Comments Components Source Medication Medication Date Date Medication? Clinician (SIG) Name Name PHENOBARBIT Yes [id number] 64.8mg TAKE 1 Univers AL 64.8 mg 8-14 TABLET BY ity of tablet 00:00: MOUTH [place] 00 EVERY DAY Medical IN THE Branch MORNING risperiDONE 2022-0 Yes [id number] TAKE 1 Univers 1 mg tablet 8-04 TABLET BY ity of 00:00: MOUTH [place] 00 TWICE A Medical DAY Branch NEEDED FOR ACUTE PSYCHOSIS OR AGGRESION risperiDONE 2022-0 Yes [id number] TAKE 1 Univers 1 mg tablet 8-04 TABLET BY ity of 00:00: MOUTH [place] 00 TWICE A Medical DAY Branch NEEDED FOR ACUTE PSYCHOSIS OR AGGRESION risperiDONE 2022-0 Yes [id number] TAKE 1 Univers 1 mg tablet 8-04 TABLET BY ity of 00:00: MOUTH [place] 00 TWICE A Medical DAY Branch NEEDED FOR ACUTE PSYCHOSIS OR AGGRESION carBAMazepi 2022-0 Yes [id number] 300mg Take 1.5 Univers ne 200 mg 7-11 tablets by ity of tablet 00:00: mouth [place] 00 every 12 Medical (twelve) Branch hours. divalproex 2022-0 Yes [id number] 1250mg Take 5 Univers ER 250 mg 7-11 tablets by ity of 24 hr 00:00: mouth at [place] tablet 00 bedtime. Medical Branch topiramate 0 Yes [id number] TAKE 1 Univers (TOPAMAX) 7-11 TABLET BY ity o f 200 mg 00:00: MOUTH [place] tablet 00 TWICE A Medical DAY...NEED Branch NEW INSURANCE risperiDONE 0 Yes [id number] 1mg Take 1 Univers 1 mg tablet 7-11 tablet by ity of 00:00: mouth 2 [place] 00 (two) Medical times Branch daily as needed (for acute psychosis or aggresion) . risperiDONE 2022-0 Yes [id number] .5mg Take 1 Univers 0.5 mg 7-11 tablet by ity of tablet 00:00: mouth at [place] 00 bedtime. Medical Branch divalproex 0 Yes [id number] 1000mg Take 2 Univers ER 500 mg 7-11 tablets by ity of 24 hr 00:00: mouth [place] tablet 00 every Medical morning Branch and at 1200 (noon). PHENobarbit 0 Yes [id number] 64.8mg Take 1 Univers aL 64.8 mg 7-11 tablet by ity of tablet 00:00: mouth in [place] 00 the Medical morning. Branch clonazePAM 0 Yes [id number] 1mg Take 1 Univers 1 mg tablet 7-11 tablet by ity of 00:00: mouth in [place] 00 the Medical morning Branch and 1 tablet at noon and 1 tablet in the evening. carBAMazepi 0 Yes [id number] 300mg Take 1.5 Univers ne 200 mg 7-11 tablets by ity of tablet 00:00: mouth [place] 00 every 12 Medical (twelve) Branch hours. divalproex 2022-0 Yes [id number] 1250mg Take 5 Univers ER 250 mg 7-11 tablets by ity of 24 hr 00:00: mouth at [place] tablet 00 bedtime. Medical Branch topiramate 0 Yes [id number] TAKE 1 Univers (TOPAMAX) 7-11 TABLET BY ity o f 200 mg 00:00: MOUTH [place] tablet 00 TWICE A Medical DAY...NEED Branch NEW INSURANCE risperiDONE 2022-0 Yes [id number] 1mg Take 1 Univers 1 mg tablet 7-11 tablet by ity of 00:00: mouth 2 [place] 00 (two) Medical times Branch daily as needed (for acute psychosis or aggresion) . risperiDONE 2022-0 Yes [id number] .5mg Take 1 Univers 0.5 mg 7-11 tablet by ity of tablet 00:00: mouth at [place] 00 bedtime. Medical Branch divalproex 2022-0 Yes [id number] 1000mg Take 2 Univers ER 500 mg 7-11 tablets by ity of 24 hr 00:00: mouth [place] tablet 00 every Medical morning Branch and at 1200 (noon). PHENobarbit 2022-0 Yes [id number] 64.8mg Take 1 Univers aL 64.8 mg 7-11 tablet by ity of tablet 00:00: mouth in [place] 00 the Medical morning. Branch clonazePAM 2022-0 Yes [id number] 1mg Take 1 Univers 1 mg tablet 7-11 tablet by ity of 00:00: mouth in [place] 00 the Medical morning Branch and 1 tablet at noon and 1 tablet in the evening. carBAMazepi 2022-0 Yes [id number] 300mg Take 1.5 Univers ne 200 mg 7-11 tablets by ity of tablet 00:00: mouth [place] 00 every 12 Medical (twelve) Branch hours. divalproex 2022-0 Yes [id number] 1250mg Take 5 Univers ER 250 mg 7-11 tablets by ity of 24 hr 00:00: mouth at [place] tablet 00 bedtime. Medical Branch topiramate 2022-0 Yes [id number] TAKE 1 Univers (TOPAMAX) 7-11 TABLET BY ity o f 200 mg 00:00: MOUTH [place] tablet 00 TWICE A Medical DAY...NEED Branch NEW INSURANCE risperiDONE 2022-0 Yes [id number] 1mg Take 1 Univers 1 mg tablet 7-11 tablet by ity of 00:00: mouth 2 [place] 00 (two) Medical times Branch daily as needed (for acute psychosis or aggresion) . risperiDONE 2022-0 Yes [id number] .5mg Take 1 Univers 0.5 mg 7-11 tablet by ity of tablet 00:00: mouth at [place] 00 bedtime. Medical Branch divalproex 2022-0 Yes [id number] 1000mg Take 2 Univers ER 500 mg 7-11 tablets by ity of 24 hr 00:00: mouth [place] tablet 00 every Medical morning Branch and at 1200 (noon). PHENobarbit 2022-0 Yes [id number] 64.8mg Take 1 Univers aL 64.8 mg 7-11 tablet by ity of tablet 00:00: mouth in [place] 00 the Medical morning. Branch clonazePAM 2022-0 Yes [id number] 1mg Take 1 Univers 1 mg tablet 7-11 tablet by ity of 00:00: mouth in [place] 00 the Medical morning Branch and 1 tablet at noon and 1 tablet in the evening. carBAMazepi 2022-0 Yes [id number] 300mg Take 1.5 Univers ne 200 mg 7-11 tablets by ity of tablet 00:00: mouth [place] 00 every 12 Medical (twelve) Branch hours. divalproex 2022-0 Yes [id number] 1250mg Take 5 Univers ER 250 mg 7-11 tablets by ity of 24 hr 00:00: mouth at [place] tablet 00 bedtime. Medical Branch topiramate 2022-0 Yes [id number] TAKE 1 Univers (TOPAMAX) 7-11 TABLET BY ity o f 200 mg 00:00: MOUTH [place] tablet 00 TWICE A Medical DAY...NEED Branch NEW INSURANCE risperiDONE 2022-0 Yes [id number] 1mg Take 1 Univers 1 mg tablet 7-11 tablet by ity of 00:00: mouth 2 [place] 00 (two) Medical times Branch daily as needed (for acute psychosis or aggresion) . risperiDONE 2022-0 Yes [id number] .5mg Take 1 Univers 0.5 mg 7-11 tablet by ity of tablet 00:00: mouth at [place] 00 bedtime. Medical Branch divalproex 2022-0 Yes [id number] 1000mg Take 2 Univers ER 500 mg 7-11 tablets by ity of 24 hr 00:00: mouth [place] tablet 00 every Medical morning Branch and at 1200 (noon). PHENobarbit 2022-0 Yes [id number] 64.8mg Take 1 Univers aL 64.8 mg 7-11 tablet by ity of tablet 00:00: mouth in [place] 00 the Medical morning. Branch clonazePAM 2022-0 Yes [id number] 1mg Take 1 Univers 1 mg tablet 7-11 tablet by ity of 00:00: mouth in [place] 00 the Medical morning Branch and 1 tablet at noon and 1 tablet in the evening. carBAMazepi 3-0 Yes [id number] 300mg Take 1.5 Univers ne 200 mg 7-11 tablets by ity of tablet 00:00: mouth [place] 00 every 12 Medical (twelve) Branch hours. divalproex 3-0 Yes [id number] 1250mg Take 5 Univers ER 250 mg 7-11 tablets by ity of 24 hr 00:00: mouth at [place] tablet 00 bedtime. Medical Branch topiramate 2022-0 Yes [id number] TAKE 1 Univers (TOPAMAX) 7-11 TABLET BY ity o f 200 mg 00:00: MOUTH [place] tablet 00 TWICE A Medical DAY...NEED Branch NEW INSURANCE risperiDONE 2022-0 Yes [id number] .5mg Take 1 Univers 0.5 mg 7-11 tablet by ity of tablet 00:00: mouth at [place] 00 bedtime. Medical Branch divalproex 2022-0 Yes [id number] 1000mg Take 2 Univers ER 500 mg 7-11 tablets by ity of 24 hr 00:00: mouth [place] tablet 00 every Medical morning Branch and at 1200 (noon). PHENobarbit 2022-0 Yes [id number] 64.8mg Take 1 Univers aL 64.8 mg 7-11 tablet by ity of tablet 00:00: mouth in [place] 00 the Medical morning. Branch clonazePAM 2022-0 Yes [id number] 1mg Take 1 Univers 1 mg tablet 7-11 tablet by ity of 00:00: mouth in [place] 00 the Medical morning Branch and 1 tablet at noon and 1 tablet in the evening. carBAMazepi 2022-0 Yes [id number] 300mg Take 1.5 Univers ne 200 mg 7-11 tablets by ity of tablet 00:00: mouth [place] 00 every 12 Medical (twelve) Branch hours. divalproex 2022-0 Yes [id number] 1250mg Take 5 Univers ER 250 mg 7-11 tablets by ity of 24 hr 00:00: mouth at [place] tablet 00 bedtime. Medical Branch topiramate 2022-0 Yes [id number] TAKE 1 Univers (TOPAMAX) 7-11 TABLET BY ity o f 200 mg 00:00: MOUTH [place] tablet 00 TWICE A Medical DAY...NEED Branch NEW INSURANCE risperiDONE 2022-0 Yes [id number] .5mg Take 1 Univers 0.5 mg 7-11 tablet by ity of tablet 00:00: mouth at [place] 00 bedtime. Medical Branch divalproex 2022-0 Yes [id number] 1000mg Take 2 Univers ER 500 mg 7-11 tablets by ity of 24 hr 00:00: mouth [place] tablet 00 every Medical morning Branch and at 1200 (noon). PHENobarbit 2023-0 Yes [id number] 64.8mg Take 1 Univers aL 64.8 mg 7-11 tablet by ity of tablet 00:00: mouth in [place] 00 the Medical morning. Branch clonazePAM 3-0 Yes [id number] 1mg Take 1 Univers 1 mg tablet 7-11 tablet by ity of 00:00: mouth in [place] 00 the Medical morning Branch and 1 tablet at noon and 1 tablet in the evening. carBAMazepi 3-0 Yes [id number] 300mg Take 1.5 Univers ne 200 mg 7-11 tablets by ity of tablet 00:00: mouth [place] 00 every 12 Medical (twelve) Branch hours. divalproex 3-0 Yes [id number] 1250mg Take 5 Univers ER 250 mg 7-11 tablets by ity of 24 hr 00:00: mouth at [place] tablet 00 bedtime. Medical Branch topiramate 2022-0 Yes [id number] TAKE 1 Univers (TOPAMAX) 7-11 TABLET BY ity o f 200 mg 00:00: MOUTH [place] tablet 00 TWICE A Medical DAY...NEED Branch NEW INSURANCE risperiDONE 2022-0 Yes [id number] .5mg Take 1 Univers 0.5 mg 7-11 tablet by ity of tablet 00:00: mouth at [place] 00 bedtime. Medical Branch divalproex 2022-0 Yes [id number] 1000mg Take 2 Univers ER 500 mg 7-11 tablets by ity of 24 hr 00:00: mouth [place] tablet 00 every Medical morning Branch and at 1200 (noon). clonazePAM 2022-0 Yes [id number] 1mg Take 1 Univers 1 mg tablet 7-11 tablet by ity of 00:00: mouth in [place] 00 the Medical morning Branch and 1 tablet at noon and 1 tablet in the evening. PHENobarbit 3-0 2023- No [id number] 64.8mg Take 1 Univers aL 64.8 mg 7-11 08-14 tablet by ity of tablet 00:00: 00:00 mouth in [place] 00 :00 the Medical morning. Branch risperiDONE 3-0 2023- No [id number] 1mg Take 1 Univers 1 mg tablet 7-11 08-04 tablet by it y of 00:00: 00:00 mouth 2 [place] 00 :00 (two) Medical times Branch daily as needed (for acute psychosis or aggresion) . rosuvastati 2023-0 Yes 10mg 10 mg, Univ ers n (CRESTOR) 6-19 Oral, QHS, it y of tablet 10 02:00: First dose [place] mg 00 on [facility] 05/06/23 at [place] 2100, Until Discontinu ed, Routine risperiDONE 2023-0 Yes .5mg 0.5 mg, Uni vers (RISPERDAL) 6-19 Oral, QHS, it y of tablet 0.5 02:00: First dose [place] mg 00 on [facility] 05/06/23 at [place] 2100, Until Discontinu ed, Routine carBAMazepi 2023-0 Yes 300mg 300 mg, Un luisa ne 6-18 Oral, QPM, ity of (TEGRETOL) 22:00: First dose [place] tablet 300 00 on [facility] 05/06/23 at [place] 1700, Until Discontinu ed, Routine enoxaparin 2023-0 Yes 40mg 40 mg, Unive rs (LOVENOX) 6-18 Subcutaneo ity of injection 22:00: [place], DAILY, [place] 40 mg 00 First dose Medical on [facility] 05/06/23 at 1700, Until Discontinu ed, Routine hydroCHLORO 2023-0 Yes 25mg Take 1 Univ ers thiazide 25 6-18 tablet by ity of mg tablet 14:22: mouth in [place] [address] the Medical morning. Branch metFORMIN 2023-0 Yes 1000mg Take 1 Univ ers 1,000 mg 6-18 tablet by ity of tablet 14:22: mouth in [address] Medical morning Branch and 1 tablet in the evening. Take with meals. hydroCHLORO 2023-0 Yes 25mg Take 1 Univ ers thiazide 25 6-18 tablet by ity of mg tablet 14:22: mouth in [place] [address] the Medical morning. Branch metFORMIN 2023-0 Yes 1000mg Take 1 Univ ers 1,000 mg 6-18 tablet by ity of tablet 14:22: mouth in [place] [address] the Medical morning Branch and 1 tablet in the evening. Take with meals. hydroCHLORO 2023-0 Yes 25mg Take 1 Univ ers thiazide 25 6-18 tablet by ity of mg tablet 14:22: mouth in [place] [address] the Medical morning. Branch metFORMIN 2023-0 Yes 1000mg Take 1 Univ ers 1,000 mg 6-18 tablet by ity of tablet 14:22: mouth in [address] Branch and 1 tablet in the evening. Take with meals. hydroCHLORO 2023-0 Yes 25mg Take 1 Univ ers thiazide 25 6-18 tablet by ity of mg tablet 14:22: mouth in [place] [address] the Medical morning. Branch metFORMIN 2023-0 Yes 1000mg Take 1 Univ ers 1,000 mg 6-18 tablet by ity of tablet 14:22: mouth in [address] Branch and 1 tablet in the evening. Take with meals. hydroCHLORO 2023-0 Yes 25mg Take 1 Univ ers thiazide 25 6-18 tablet by ity of mg tablet 14:22: mouth in [place] [address] the Medical morning. Branch metFORMIN 2023-0 Yes 1000mg Take 1 Univ ers 1,000 mg 6-18 tablet by ity of tablet 14:22: mouth in [address] and 1 tablet in the evening. Take with meals. hydroCHLORO 2023-0 Yes 25mg Take 1 Univ ers thiazide 25 6-18 tablet by ity of mg tablet 14:22: mouth in [place] [address] the Medical morning. Branch metFORMIN 2023-0 Yes 1000mg Take 1 Univ ers 1,000 mg 6-18 tablet by ity of tablet 14:22: mouth in [address] Branch and 1 tablet in the evening. Take with meals. hydroCHLORO 2023-0 Yes 25mg Take 1 Univ ers thiazide 25 6-18 tablet by ity of mg tablet 14:22: mouth in [place] [address] the Medical morning. Branch metFORMIN 2023-0 Yes 1000mg Take 1 Univ ers 1,000 mg 6-18 tablet by ity of tablet 14:22: mouth in [address] and 1 tablet in the evening. Take with meals. hydroCHLORO 2023-0 Yes 25mg Take 1 Univ ers thiazide 25 6-18 tablet by ity of mg tablet 14:22: mouth in [place] [address] the Medical morning. Branch metFORMIN 2023-0 Yes 1000mg Take 1 Univ ers 1,000 mg 6-18 tablet by ity of tablet 14:22: mouth in [address] and 1 tablet in the evening. Take with meals. hydroCHLORO 2023-0 Yes 25mg Take 1 Univ ers thiazide 25 6-18 tablet by ity of mg tablet 14:22: mouth in [place] [address] the Medical morning. Branch metFORMIN 2023-0 Yes 1000mg Take 1 Univ ers 1,000 mg 6-18 tablet by ity of tablet 14:22: mouth in [place] [address] the [facility] morning Branch and 1 tablet in the evening. Take with meals. hydroCHLORO 2023-0 Yes 25mg Take 1 Univ ers thiazide 25 6-18 tablet by ity of mg tablet 14:22: mouth in [place] [address] the Medical morning. Branch metFORMIN 2023-0 Yes 1000mg Take 1 Univ ers 1,000 mg 6-18 tablet by ity of tablet 14:22: mouth in [address] morning Branch and 1 tablet in the evening. Take with meals. hydroCHLORO 2023-0 Yes 25mg Take 1 Univ ers thiazide 25 6-18 tablet by ity of mg tablet 14:22: mouth in [place] [address] the Medical morning. Branch metFORMIN 2023-0 Yes 1000mg Take 1 Univ ers 1,000 mg 6-18 tablet by ity of tablet 14:22: mouth in [address] Branch and 1 tablet in the evening. Take with meals. pantoprazol 3-0 Yes 40mg 40 mg, Univ ers e 6-18 Oral, ity of (PROTONIX) 14:00: DAILY, [place] EC tablet 00 First dose Medi rohan 40 mg on [facility] 05/06/23 at 0900, Until Discontinu ed, Routine vitamin 2023-0 Yes 1000ug 1,000 mcg, Un luisa B-12 6-18 Oral, ity of (CYANOCOBAL 14:00: DAILY, [place] [facility]) 00 First dose Medical tablet on [facility] 1,000 mcg 05/06/23 at 0900, Until Discontinu ed, Routine thiamine 2023-0 Yes 100mg 100 mg, Unive rs (VITAMIN 6-18 Oral, ity of B1) tablet 14:00: DAILY, [place] 100 mg 00 First dose Medical on [facility] 05/06/23 at 0900, Until Discontinu ed, Routine hydroCHLORO 2023-0 Yes 25mg 25 mg, Univ ers thiazide 6-18 Oral, ity of (ESIDRIX) 14:00: DAILY, [place] tablet 25 00 First dose Medi rohan mg on [facility] 05/06/23 at 0900, Until Discontinu ed, Routine divalproex 2023-0 Yes 1000mg 1,000 mg, Univers ER 18 Oral, QAM ity of (DEPAKOTE 14:00: + NOON, [place] ER) 24 hr 00 First dose Medi rohan tablet on [place] 1,000 mg 05/06/23 at 0900, Until Discontinu ed, Routine carBAMazepi 2022-0 Yes 300mg 300 mg, Un luisa ne 18 Oral, TID, ity of (TEGRETOL) 13:00: First dose [place] tablet 300 00 (after Medical mg last Branch modificati on) on [place] 05/06/23 at 0800, Until Discontinu ed, Routine zonisamide 0 Yes 50mg 50 mg, Unive rs (ZONEGRAN) 05-06 Oral, BID, ity of capsule 50 13:00: First dose [place] mg 00 on [facility] 05/06/23 at Branch 0800, Until Discontinu ed, Routine topiramate 0 Yes 200mg 200 mg, Uni vers (TOPAMAX) 05-06 Oral, ity of tablet 200 13:00: Q12H, [place] mg 00 First dose Medical on [facility] 05/06/23 at 0800, Until Discontinu ed, Routine
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 Restricted medication : IRA PATEL levothyroxi 0 Yes 75ug 75 mcg, Uni vers ne 18 Oral, ity of (SYNTHROID) 11:00: QAM-0600, [place] tablet 75 00 First dose Medi rohan mcg on [place] Branch 05/06/23 at 0600, Until Discontinu ed, Routine acetaminoph 0 Yes 650mg 650 mg, Un luisa en 18 Oral, ity of (TYLENOL) 08:40: Q6HPRN, [place] tablet 650 30 Starting Medic al mg on [facility] 05/06/23 at 0340, Until Discontinu ed, Routine, Pain (scale 4-6) docusate 2022-0 Yes 100mg 100 mg, Unive rs (COLACE) 18 Oral, ity of capsule 100 08:40: QDAILYPRN, [place] mg 30 Starting Medical on [place] Branch 05/06/23 at 0340, Until Discontinu ed, Routine, Constipati on risperiDONE 2023-0 Yes 1mg 1 mg, Unive rs (RISPERDAL) 6-18 Oral, ity of tablet 1 mg 08:38: BIDPRN, [place] 40 Starting Medical on [place] [facility] 05/06/23 at 0338, Until Discontinu ed, Routine, for acute psychosis or aggresion butalbital- Yes 1{tbl} 1 tablet, Univers acetaminoph 18 Oral, ity of en-caff 08:37: Q6HPRN, [place] (ESGIC) 25 Starting Medical 50-325-40 on [place] [facility] mg tablet 1 05/06/23 at tablet 0337, Until Discontinu ed, Routine, headache ketorolac 2022- Yes 15mg 15 mg, Unive rs (TORADOL) 05-06 06-19 Slow IV ity of injection 04:40: 04:39 [place], [place] 15 mg 19 :19 Q8HPRN, Medical Starting Branch on 05/05/23 at 2340, Until 05/06/23 at 2339, Routine, Pain (scale 7-10) carBAMazepi 2022- Yes [id number] Take 1.5 Univers ne 200 mg 6-18 08-14 tablets by ity of tablet 00:00: 04:59 mouth [place] 00 :00 every 8 Medical (eight) Branch hours for 14 days, THEN 1 tablet every 8 (eight) hours for 14 days, THEN 1 tablet every 12 (twelve) hours for 14 days, THEN 0.5 tablets every 12 (twelve) hours for 14 days. carBAMazepi 2022- Yes [id number] Take 1.5 Univers ne 200 mg 6-18 08-14 tablets by ity of tablet 00:00: 04:59 mouth [place] 00 :00 every 8 Medical (eight) Branch hours for 14 days, THEN 1 tablet every 8 (eight) hours for 14 days, THEN 1 tablet every 12 (twelve) hours for 14 days, THEN 0.5 tablets every 12 (twelve) hours for 14 days. carBAMazepi 2022- Yes [id number] Take 1.5 Univers ne 200 mg 6-18 08-14 tablets by ity of tablet 00:00: 04:59 mouth [place] 00 :00 every 8 Medical (eight) Branch hours for 14 days, THEN 1 tablet every 8 (eight) hours for 14 days, THEN 1 tablet every 12 (twelve) hours for 14 days, THEN 0.5 tablets every 12 (twelve) hours for 14 days. carBAMazepi 2023-0 2022- No [id number] Take 1.5 [facility] ne 200 mg 6-18 07-11 tablets by ity of tablet 00:00: 00:00 mouth [place] 00 :00 every 8 Medical (eight) Branch hours for 14 days, THEN 1 tablet every 8 (eight) hours for 14 days, THEN 1 tablet every 12 (twelve) hours for 14 days, THEN 0.5 tablets every 12 (twelve) hours for 14 days. carBAMazepi 3-0 3- No [id number] Take 1.5 [facility] ne 200 mg 6-18 07-11 tablets by ity of tablet 00:00: 00:00 mouth [place] 00 :00 every 8 Medical (eight) Branch hours for 14 days, THEN 1 tablet every 8 (eight) hours for 14 days, THEN 1 tablet every 12 (twelve) hours for 14 days, THEN 0.5 tablets every 12 (twelve) hours for 14 days. carBAMazepi 3-0 2022- No [id number] Take 1.5 [facility] ne 200 mg 6-18 [...] ity of mg tablet 21:58: mouth in [place] [facility] 37 the Medical morning. Branch metFORMIN 2023-0 Yes 1000mg Take 1 Univ ers 1,000 mg 6-17 tablet by ity of tablet 21:58: mouth in [place] [address] the Medical morning Branch and 1 tablet in the evening. Take with meals. risperiDONE 2023-0 Yes .5mg 0.5 mg, Uni vers (RISPERDAL) 6-17 Oral, QHS, it y of tablet 0.5 02:00: First dose [place] mg 00 (after Medical last Branch modificati on) on Sun05/04/23 at 2100, Until Discontinu ed, Routine acetaminoph 2023-0 2023- No 500mg Take 1 Un luisa en (TYLENOL 6-16 06-16 tablet by it y of EXTRA 14:39: 00:00 mouth [place] STRENGTH) 04 :00 every 6 Medical 500 mg (six) Branch tablet hours as needed for Pain. clonazePAM 2022-0 Yes [id number] 1.5mg Take 3 [facility] 0.5 mg 6-16 tablets by ity of tablet 00:00: mouth in [place] 00 the Medical morning Branch and 3 tablets at noon and 3 tablets in the evening. clonazePAM 2022-0 Yes [id number] 1.5mg Take 3 [facility] 0.5 mg 6-16 tablets by ity of tablet 00:00: mouth in [place] 00 the Medical morning Branch and 3 tablets at noon and 3 tablets in the evening. clonazePAM 2022-0 Yes [id number] 1.5mg Take 3 [facility] 0.5 mg 6-16 tablets by ity of tablet 00:00: mouth in [place] 00 the Medical morning Branch and 3 tablets at noon and 3 tablets in the evening. clonazePAM 2022-0 Yes [id number] 1.5mg Take 3 [facility] 0.5 mg 6-16 tablets by ity of tablet 00:00: mouth in [place] 00 the Medical morning Branch and 3 tablets at noon and 3 tablets in the evening. levothyroxi 0 2023- Yes [id number] 75ug Take 1 [facility] ne 75 mcg 6-16 06-11 tablet by ity of tablet 00:00: 04:59 mouth [place] 00 :00 every Medical morning Branch for 360 days. levothyroxi 2022-0 2023- Yes [id number] 75ug Take 1 [facility] ne 75 mcg 6-16 06-11 tablet by ity of tablet 00:00: 04:59 mouth [place] 00 :00 every Medical morning Branch for 360 days. levothyroxi 2022-0 2023- Yes [id number] 75ug Take 1 [facility] ne 75 mcg 6-16 06-11 tablet by ity of tablet 00:00: 04:59 mouth [place] 00 :00 every Medical morning Branch for 360 days. levothyroxi 0 2023- Yes [id number] 75ug Take 1 [facility] ne 75 mcg 6-16 06-11 tablet by ity of tablet 00:00: 04:59 mouth [place] 00 :00 every Medical morning Branch for 360 days. levothyroxi 2023- Yes [id number] 75ug Take 1 [facility] ne 75 mcg 6-16 06-11 tablet by ity of tablet 00:00: 04:59 mouth [place] 00 :00 every Medical morning Branch for 360 days. levothyroxi 2023- Yes [id number] 75ug Take 1 [facility] ne 75 mcg 6-16 06-11 tablet by ity of tablet 00:00: 04:59 mouth [place] 00 :00 every Medical morning Branch for 360 days. levothyroxi 2023- Yes [id number] 75ug Take 1 [facility] ne 75 mcg 6-16 06-11 tablet by ity of tablet 00:00: 04:59 mouth [place] 00 :00 every Medical morning Branch for 360 days. levothyroxi 2023- Yes [id number] 75ug Take 1 [facility] ne 75 mcg 6-16 06-11 tablet by ity of tablet 00:00: 04:59 mouth [place] 00 :00 every Medical morning Branch for 360 days. levothyroxi 2023- Yes [id number] 75ug Take 1 [facility] ne 75 mcg 6-16 06-11 tablet by ity of tablet 00:00: 04:59 mouth [place] 00 :00 every Medical morning Branch for 360 days. levothyroxi 2023- Yes [id number] 75ug Take 1 [facility] ne 75 mcg 6-16 06-11 tablet by ity of tablet 00:00: 04:59 mouth [place] 00 :00 every Medical morning Branch for 360 days. levothyroxi 2023- Yes [id number] 75ug Take 1 [facility] ne 75 mcg 6-16 06-11 tablet by ity of tablet 00:00: 04:59 mouth [place] 00 :00 every Medical morning Branch for 360 days. divalproex 2022- Yes [id number] 1000mg Take 2 [facility] ER 500 mg 6-16 12-14 tablets by ity of 24 hr 00:00: 05:59 mouth [place] tablet 00 :00 every Medical morning Branch and at 1200 (noon) for 180 days. divalproex 2022- Yes [id number] 1250mg Take 5 [facility] ER 250 mg 6-16 12-14 tablets by ity of 24 hr 00:00: 05:59 mouth at [place] tablet 00 :00 bedtime Medical for 180 Branch days. thiamine 2022- Yes [id number] 100mg Take 1 [facility] 100 mg 6-16 12-14 tablet by ity of tablet 00:00: 05:59 mouth in [place] 00 :00 the Medical morning Branch for 180 days. vitamin 2022- Yes [id number] 1000ug Take 1 U nivers B-12 1,000 6-16 12-14 tablet by ity of mcg tablet 00:00: 05:59 mouth in [facility] 00 :00 the Medical morning Branch for 180 days. zonisamide 2022- Yes [id number] 50mg Take 1 Univers 50 mg 6-16 12-14 capsule by ity of capsule 00:00: 05:59 mouth in [place] 00 :00 the Medical morning Branch and 1 capsule in the evening. Do all this for 180 days. risperiDONE 2022- Yes [id number] .5mg Take 1 [facility] 0.5 mg 6-16 12-14 tablet by ity of tablet 00:00: 05:59 mouth at [place] 00 :00 bedtime Medical for 180 Branch days. divalproex 2022- Yes [id number] 1000mg Take 2 [facility] ER 500 mg 6-16 12-14 tablets by ity of 24 hr 00:00: 05:59 mouth [place] tablet 00 :00 every Medical morning Branch and at 1200 (noon) for 180 days. divalproex 2022- Yes [id number] 1250mg Take 5 [facility] ER 250 mg 6-16 12-14 tablets by ity of 24 hr 00:00: 05:59 mouth at [place] tablet 00 :00 bedtime Medical for 180 Branch days. thiamine 2022- Yes [id number] 100mg Take 1 [facility] 100 mg 6-16 12-14 tablet by ity of tablet 00:00: 05:59 mouth in [place] 00 :00 the Medical morning Branch for 180 days. vitamin 2022- Yes [id number] 1000ug Take 1 U nivers B-12 1,000 6-16 12-14 tablet by ity of mcg tablet 00:00: 05:59 mouth in [place] 00 :00 the Medical morning Branch for 180 days. zonisamide 2022- Yes [id number] 50mg Take 1 [facility] 50 mg 6-16 12-14 capsule by ity of capsule 00:00: 05:59 mouth in [place] 00 :00 the Medical morning Branch and 1 capsule in the evening. Do all this for 180 days. risperiDONE 2022- Yes [id number] .5mg Take 1 [facility] 0.5 mg 6-16 12-14 tablet by ity of tablet 00:00: 05:59 mouth at [place] 00 :00 bedtime Medical for 180 Branch days. divalproex 2022- Yes [id number] 1000mg Take 2 [facility] ER 500 mg 6-16 12-14 tablets by ity of 24 hr 00:00: 05:59 mouth [place] tablet 00 :00 every Medical morning Branch and at 1200 (noon) for 180 days. divalproex 2022- Yes [id number] 1250mg Take 5 [facility] ER 250 mg 6-16 12-14 tablets by ity of 24 hr 00:00: 05:59 mouth at [place] tablet 00 :00 bedtime Medical for 180 Branch days. thiamine 2022- Yes [id number] 100mg Take 1 [facility] 100 mg 6-16 12-14 tablet by ity of tablet 00:00: 05:59 mouth in [place] 00 :00 the Medical morning Branch for 180 days. vitamin 2022-2022- Yes [id number] 1000ug Take 1 U nivers B-12 1,000 6-16 12-14 tablet by ity of mcg tablet 00:00: 05:59 mouth in [place] 00 :00 the Medical morning Branch for 180 days. zonisamide 2022- Yes [id number] 50mg Take 1 [facility] 50 mg 6-16 12-14 capsule by ity of capsule 00:00: 05:59 mouth in [place] 00 :00 the Medical morning Branch and 1 capsule in the evening. Do all this for 180 days. risperiDONE 2022- Yes [id number] .5mg Take 1 [facility] 0.5 mg 6-16 12-14 tablet by ity of tablet 00:00: 05:59 mouth at [place] 00 :00 bedtime Medical for 180 Branch days. thiamine 2022-2022- Yes [id number] 100mg Take 1 [facility] 100 mg 6-16 12-14 tablet by ity of tablet 00:00: 05:59 mouth in [place] 00 :00 the Medical morning Branch for 180 days. vitamin 2022-0 2022- Yes [id number] 1000ug Take 1 U nivers B-12 1,000 6-16 12-14 tablet by ity of mcg tablet 00:00: 05:59 mouth in [place] 00 :00 the [facility] for 180 days. zonisamide 2022-2022- Yes [id number] 50mg Take 1 [facility] 50 mg 6-16 12-14 capsule by ity of capsule 00:00: 05:59 mouth in [place] 00 :00 the [facility] Branch and 1 capsule in the evening. Do all this for 180 days. thiamine 2022-0 2022- Yes [id number] 100mg Take 1 [facility] 100 mg 6-16 12-14 tablet by ity of tablet 00:00: 05:59 mouth in [place] 00 :00 the [facility] for 180 days. vitamin 2022-2022- Yes [id number] 1000ug Take 1 U nivers B-12 1,000 6-16 12-14 tablet by ity of mcg tablet 00:00: 05:59 mouth in [place] 00 :00 the [facility] for 180 days. zonisamide 2022-0 2022- Yes [id number] 50mg Take 1 [facility] 50 mg 6-16 12-14 capsule by ity of capsule 00:00: 05:59 mouth in [place] 00 :00 the [facility] and 1 capsule in the evening. Do all this for 180 days. thiamine 2022-2022- Yes [id number] 100mg Take 1 [facility] 100 mg 6-16 12-14 tablet by ity of tablet 00:00: 05:59 mouth in [place] 00 :00 the [facility] for 180 days. vitamin 2022- Yes [id number] 1000ug Take 1 U nivers B-12 1,000 6-16 12-14 tablet by ity of mcg tablet 00:00: 05:59 mouth in [place] 00 :00 the [facility] for 180 days. zonisamide 2022-0 2022- Yes [id number] 50mg Take 1 [facility] 50 mg 6-16 12-14 capsule by ity of capsule 00:00: 05:59 mouth in [place] 00 :00 the [facility] and 1 capsule in the evening. Do all this for 180 days. thiamine 20222022- Yes [id number] 100mg Take 1 [facility] 100 mg 6-16 12-14 tablet by ity of tablet 00:00: 05:59 mouth in [place] 00 :00 the [facility] morning Branch for 180 days. vitamin 2022- Yes [id number] 1000ug Take 1 U nivers B-12 1,000 6-16 12-14 tablet by ity of mcg tablet 00:00: 05:59 mouth in [place] 00 :00 the [facility] morning Branch for 180 days. zonisamide 2022- Yes [id number] 50mg Take 1 [facility] 50 mg 6-16 12-14 capsule by ity of capsule 00:00: 05:59 mouth in [place] 00 :00 the Medical morning Branch and 1 capsule in the evening. Do all this for 180 days. thiamine 2022- Yes [id number] 100mg Take 1 [facility] 100 mg 6-16 12-14 tablet by ity of tablet 00:00: 05:59 mouth in [place] 00 :00 the [facility] for 180 days. vitamin 2022- Yes [id number] 1000ug Take 1 U nivers B-12 1,000 6-16 12-14 tablet by ity of mcg tablet 00:00: 05:59 mouth in [place] 00 :00 the [facility] morning Branch for 180 days. zonisamide 2022- Yes [id number] 50mg Take 1 Univers 50 mg 6-16 12-14 capsule by ity of capsule 00:00: 05:59 mouth in [place] 00 :00 the [facility] morning Branch and 1 capsule in the evening. Do all this for 180 days. thiamine 2022- Yes [id number] 100mg Take 1 [facility] 100 mg 6-16 12-14 tablet by ity of tablet 00:00: 05:59 mouth in [place] 00 :00 the [facility] morning Branch for 180 days. vitamin 2022- Yes [id number] 1000ug Take 1 U nivers B-12 1,000 6-16 12-14 tablet by ity of mcg tablet 00:00: 05:59 mouth in [place] 00 :00 the [facility] morning Branch for 180 days. zonisamide 2022- Yes [id number] 50mg Take 1 [facility] 50 mg 6-16 12-14 capsule by ity of capsule 00:00: 05:59 mouth in [place] 00 :00 the Medical morning Branch and 1 capsule in the evening. Do all this for 180 days. thiamine 2022-2022- Yes [id number] 100mg Take 1 [facility] 100 mg 6-16 12-14 tablet by ity of tablet 00:00: 05:59 mouth in [place] 00 :00 the Medical morning Branch for 180 days. vitamin 2022-2022- Yes [id number] 1000ug Take 1 U nivers B-12 1,000 6-16 12-14 tablet by ity of mcg tablet 00:00: 05:59 mouth in [place] 00 :00 the Medical morning Branch for 180 days. zonisamide 2022-2022- Yes [id number] 50mg Take 1 [facility] 50 mg 6-16 12-14 capsule by ity of capsule 00:00: 05:59 mouth in [place] 00 :00 the Medical morning Branch and 1 capsule in the evening. Do all this for 180 days. divalproex 2022-0 2022- Yes [id number] 1000mg Take 2 [facility] ER 500 mg 6-16 12-14 tablets by ity of 24 hr 00:00: 05:59 mouth [place] tablet 00 :00 every Medical morning Branch and at 1200 (noon) for 180 days. divalproex 2022-0 2022- Yes [id number] 1250mg Take 5 Univers ER 250 mg 6-16 12-14 tablets by ity of 24 hr 00:00: 05:59 mouth at [place] tablet 00 :00 bedtime Medical for 180 Branch days. thiamine 2022-0 2022- Yes [id number] 100mg Take 1 [facility] 100 mg 6-16 12-14 tablet by ity of tablet 00:00: 05:59 mouth in [place] 00 :00 the Medical morning Branch for 180 days. vitamin 2022-0 2022- Yes [id number] 1000ug Take 1 U nivers B-12 1,000 6-16 12-14 tablet by ity of mcg tablet 00:00: 05:59 mouth in [place] 00 :00 the Medical morning Branch for 180 days. zonisamide 2022-0 2022- Yes [id number] 50mg Take 1 [facility] 50 mg 6-16 12-14 capsule by ity of capsule 00:00: 05:59 mouth in [place] 00 :00 the Medical morning Branch and 1 capsule in the evening. Do all this for 180 days. risperiDONE 2022-2022- Yes [id number] .5mg Take 1 [facility] 0.5 mg 6-16 12-14 tablet by ity of tablet 00:00: 05:59 mouth at [place] 00 :00 bedtime Medical for 180 Branch days. pantoprazol 2022- Yes [id number] 40mg Take 1 Univers e 40 mg EC 6-16 09-15 tablet by ity of tablet 00:00: 04:59 mouth in [place] 00 :00 the [facility] for 90 days. pantoprazol 2022- Yes [id number] 40mg Take 1 Univers e 40 mg EC 6-16 09-15 tablet by ity of tablet 00:00: 04:59 mouth in [place] 00 :00 the [facility] for 90 days. pantoprazol 2022- Yes [id number] 40mg Take 1 Univers e 40 mg EC 6-16 09-15 tablet by ity of tablet 00:00: 04:59 mouth in [place] 00 :00 the [facility] for 90 days. pantoprazol 2022- Yes [id number] 40mg Take 1 Univers e 40 mg EC 6-16 09-15 tablet by ity of tablet 00:00: 04:59 mouth in [place] 00 :00 the [facility] for 90 days. pantoprazol 2022-2022- Yes [id number] 40mg Take 1 Univers e 40 mg EC 6-16 09-15 tablet by ity of tablet 00:00: 04:59 mouth in [place] 00 :00 the [facility] for 90 days. pantoprazol 2022- Yes [id number] 40mg Take 1 Univers e 40 mg EC 6-16 09-15 tablet by ity of tablet 00:00: 04:59 mouth in [place] 00 :00 the [facility] for 90 days. pantoprazol 2022-2022- Yes [id number] 40mg Take 1 Univers e 40 mg EC 6-16 09-15 tablet by ity of tablet 00:00: 04:59 mouth in [place] 00 :00 the [facility] for 90 days. pantoprazol 2022- Yes [id number] 40mg Take 1 Univers e 40 mg EC 6-16 09-15 tablet by ity of tablet 00:00: 04:59 mouth in [place] 00 :00 the Medical morning Branch for 90 days. pantoprazol 2022- Yes [id number] 40mg Take 1 Univers e 40 mg EC 05-04 tablet by ity of tablet 00:00: 04:59 mouth in [place] 00 :00 the Medical morning Branch for 90 days. pantoprazol 2022- Yes [id number] 40mg Take 1 Univers e 40 mg EC 05-04 tablet by ity of tablet 00:00: 04:59 mouth in [place] 00 :00 the Medical morning Branch for 90 days. pantoprazol 2022- Yes [id number] 40mg Take 1 Univers e 40 mg EC 05-04 tablet by ity of tablet 00:00: 04:59 mouth in [place] 00 :00 the Medical morning Branch for 90 days. carBAMazepi 2022- Yes [id number] Take 1.5 Univers ne 200 mg 05-04-12 tablets by ity of tablet 00:00: 04:59 mouth [place] 00 :00 every 8 Medical (eight) Branch hours for 14 days, THEN 1 tablet every 8 (eight) hours for 14 days, THEN 1 tablet every 12 (twelve) hours for 14 days, THEN 0.5 tablets every 12 (twelve) hours for 14 days. risperiDONE 2022- Yes [id number] 1mg Take 1 Univers 1 mg tablet 05-0417 tablet by it y of 00:00: 04:59 mouth 2 [place] 00 :00 (two) Medical times Branch daily as needed (for acute psychosis or aggresion) for up to 30 days. risperiDONE 2022- Yes [id number] 1mg Take 1 Univers 1 mg tablet 05-04-17 tablet by it y of 00:00: 04:59 mouth 2 [place] 00 :00 (two) Medical times Branch daily as needed (for acute psychosis or aggresion) for up to 30 days. risperiDONE 2022- Yes [id number] 1mg Take 1 Univers 1 mg tablet 05-0417 tablet by it y of 00:00: 04:59 mouth 2 [place] 00 :00 (two) Medical times Branch daily as needed (for acute psychosis or aggresion) for up to 30 days. risperiDONE 2022- Yes [id number] 1mg Take 1 Univers 1 mg tablet 6-16 07-17 tablet by it y of 00:00: 04:59 mouth 2 [place] 00 :00 (two) Medical times [place] daily as needed (for acute psychosis or aggresion) for up to 30 days. clonazePAM 2022-0 2022- No [id number] 1.5mg Take 3 Univers 0.5 mg 6-16 07-11 tablets by ity of tablet 00:00: 00:00 mouth in [place] 00 :00 the Medical morning Branch and 3 tablets at noon and 3 tablets in the evening. divalproex 2022-0 2022- No [id number] 1000mg Take 2 Univers ER 500 mg 6-16 07-11 tablets by ity of 24 hr 00:00: 00:00 mouth [place] tablet 00 :00 every Medical morning Branch and at 1200 (noon) for 180 days. divalproex 2022-0 2022- No [id number] 1250mg Take 5 Univers ER 250 mg 6-16 07-11 tablets by ity of 24 hr 00:00: 00:00 mouth at [place] tablet 00 :00 bedtime Medical for 180 Branch days. risperiDONE 2022-0 2022- No [id number] 1mg Take 1 Univers 1 mg tablet 6-03 06-11 tablet by it y of 00:00: 00:00 mouth 2 [place] 00 :00 (two) Medical times [place] daily as needed (for acute psychosis or aggresion) for up to 30 days. risperiDONE 2022-0 2022- No [id number] .5mg Take 1 Univers 0.5 mg 6-16 07-11 tablet by ity of tablet 00:00: 00:00 mouth at [place] 00 :00 bedtime Medical for 180 Branch days. clonazePAM 2022-0 2022- No [id number] 1.5mg Take 3 Univers 0.5 mg 6-16 07-11 tablets by ity of tablet 00:00: 00:00 mouth in [place] 00 :00 the Medical morning Branch and 3 tablets at noon and 3 tablets in the evening. divalproex 2022-0 2022- No [id number] 1000mg Take 2 Univers ER 500 mg 6-16 07-11 tablets by ity of 24 hr 00:00: 00:00 mouth [place] tablet 00 :00 every Medical morning Branch and at 1200 (noon) for 180 days. divalproex 2022-0 2022- No [id number] 1250mg Take 5 Univers ER 250 mg 6-16 07-11 tablets by ity of 24 hr 00:00: 00:00 mouth at [place] tablet 00 :00 bedtime Medical for 180 Branch days. risperiDONE 2022-2022- No [id number] 1mg Take 1 Univers 1 mg tablet 6-16 07-11 tablet by it y of 00:00: 00:00 mouth 2 [place] 00 :00 (two) Medical times Branch daily as needed (for acute psychosis or aggresion) for up to 30 days. risperiDONE 2022-0 2022- No [id number] .5mg Take 1 Univers 0.5 mg 6-16 07-11 tablet by ity of tablet 00:00: 00:00 mouth at [place] 00 :00 bedtime Medical for 180 Branch days. clonazePAM 2022-2022- No [id number] 1.5mg Take 3 Univers 0.5 mg 6-16 07-11 tablets by ity of tablet 00:00: 00:00 mouth in [place] 00 :00 the Medical morning Branch and 3 tablets at noon and 3 tablets in the evening. divalproex 2022-0 2022- No [id number] 1000mg Take 2 Univers ER 500 mg 6-16 07-11 tablets by ity of 24 hr 00:00: 00:00 mouth [place] tablet 00 :00 every Medical morning Branch and at 1200 (noon) for 180 days. divalproex 2022-0 2022- No [id number] 1250mg Take 5 Univers ER 250 mg 6-16 07-11 tablets by ity of 24 hr 00:00: 00:00 mouth at [place] tablet 00 :00 bedtime Medical for 180 Branch days. risperiDONE 2022-2022- No [id number] 1mg Take 1 Univers 1 mg tablet 6-16 07-11 tablet by it y of 00:00: 00:00 mouth 2 [place] 00 :00 (two) Medical times Branch daily as needed (for acute psychosis or aggresion) for up to 30 days. risperiDONE 2022-0 2022- No [id number] .5mg Take 1 Univers 0.5 mg 6-16 07-11 tablet by ity of tablet 00:00: 00:00 mouth at [place] 00 :00 bedtime Medical for 180 Branch days. acetaminoph 2022- Yes [id number] 650mg Take 2 Univers en 325 mg 6-16 07-02 tablets by ity of tablet 00:00: 04:59 mouth [place] 00 :00 every 6 Medical (six) Branch hours as needed for Pain (scale 4-6) for up to 15 days. acetaminoph 2022- Yes [id number] 650mg Take 2 Univers en 325 mg 6-16 07-02 tablets by ity of tablet 00:00: 04:59 mouth [place] 00 :00 every 6 Medical (six) Branch hours as needed for Pain (scale 4-6) for up to 15 days. acetaminoph 2022- Yes [id number] 650mg Take 2 Univers en 325 mg 6-16 07-02 tablets by ity of tablet 00:00: 04:59 mouth [place] 00 :00 every 6 Medical (six) Branch hours as needed for Pain (scale 4-6) for up to 15 days. butalbital- 2022- Yes [id number] 1{tbl} Take 1 Univers acetaminoph 6-16 06-24 tablet by it y of en-caff 00:00: 04:59 mouth [place] 50-325-40 00 :00 every 6 Medical mg tablet (six) Branch hours as needed (headache) for up to 7 days. butalbital- 2022- Yes [id number] 1{tbl} Take 1 Univers acetaminoph 6-16 06-24 tablet by it y of en-caff 00:00: 04:59 mouth [place] 50-325-40 00 :00 every 6 Medical mg tablet (six) Branch hours as needed (headache) for up to 7 days. butalbital- 2022- Yes [id number] 1{tbl} Take 1 Univers acetaminoph 6-16 06-24 tablet by it y of en-caff 00:00: 04:59 mouth [place] 50-325-40 00 :00 every 6 Medical mg tablet (six) Branch hours as needed (headache) for up to 7 days. carBAMazepi 2022- No [id number] Take 1.5 Univers ne 200 mg 6-16 06-18 tablets by ity of tablet 00:00: 00:00 mouth [place] 00 :00 every 8 Medical (eight) Branch hours for 14 days, THEN 1 tablet every 8 (eight) hours for 14 days, THEN 1 tablet every 12 (twelve) hours for 14 days, THEN 0.5 tablets every 12 (twelve) hours for 14 days. carBAMazepi 2022- No [id number] Take 3 Univers ne 200 mg 616 16 tablets by ity of tablet 00:00: 00:00 mouth at [place] 00 :00 bedtime Medical AND 1.5 Branch tablets every morning and at 1200 (noon). Do all this for 7 days. carBAMazepi 2022- No [id number] Take 1.5 [facility] ne 200 mg 6-16 -16 tablets by ity of tablet 00:00: 00:00 [...] [place] m[place] 00 :00 dose, On Sun05/02/23 at 1215, Routine risperiDONE 2022- No .25mg 0.25 mg, Univers (RISPERDAL) 05-02 Oral, QHS, i ty of tablet 0.25 02:00: 19:36 First dose [place] mg 00 :03 (after Medical last Branch modificati on) on Sun05/01/23 at 2100, Until Discontinu ed, Routine butalbital- Yes 1{tbl} 1 tablet, Univers acetaminoph 04-30 Oral, ity of en-caff 16:36: Q6HPRN, [place] (ESGIC) 51 Starting Medical 50-325-40 on Sun mg tablet 1 04/30/23 at tablet 1136, Until Discontinu ed, Routine, Pain (scale 4-6), Pain (scale 7-10) Lidocaine 2022- No 1{patch 1 Patch, Univers (LIDOCARE) 04-29 } Topical, ity of 4 % patch 1 14:45: 04:39 Administer [place] Patch 00 :00 over 12 Medical Hours, Branch ONCE, 1 dose, On 04/29/23 at 0945, Routine lidocaine 2023-0 2023- No 10mL 10 mL, Unive rs 1% 04-28 06-10 Infiltrati ity of (XYLOCAINE) 17:30: 17:30 on, ONCE, [place] 10 mg/mL (1 00 :00 1 dose, On Me dical %) Sat Branch injection 04/28/23 at 10 mL 1230, Routine vitamin 2023-0 Yes 1000ug 1,000 mcg, Un luisa B-12 6-10 Oral, ity of (CYANOCOBAL 14:00: DAILY, [place]) 00 First dose Medical tablet on Sat Branch 1,000 mcg 04/28/23 at 0900, Until Discontinu ed, Routine carBAMazepi 2023-0 Yes 600mg 600 mg, Un luisa ne 6-10 Oral, QHS, ity of (TEGRETOL) 02:00: First dose [place] tablet 600 00 (after Medical mg last Branch modificati on) on Sun04/27/23 at 2100, Until Discontinu ed clonazePAM 2023-0 Yes 1.5mg 1.5 mg, Uni vers (KLONOPIN) 610 Oral, TID, ity of tablet 1.5 01:00: First dose [place] mg 00 (after Medical last Branch modificati on) on Sun04/27/23 at 2000, Until Discontinu ed, Routine risperiDONE 3-0 Yes 1mg 1 mg, Unive rs (RISPERDAL) 04-27 Oral, ity of tablet 1 mg 21:54: BIDPRN, [place] 05 Starting Medical on Sun [place] 04/27/23 at 1654, Until Discontinu ed, Routine, aggresion thiamine 2023-0 Yes 100mg 100 mg, Unive rs (VITAMIN - Oral, ity of B1) tablet 14:00: DAILY, [place] 100 mg 00 First dose Medical on Sun Branch 04/27/23 at 0900, Until Discontinu ed, Routine carBAMazepi 2023-0 Yes 300mg 300 mg, Un luisa ne 6-09 Oral, QAM ity of (TEGRETOL) 14:00: + NOON, [place] tablet 300 00 First dose Med ical mg (after Branch last modificati on) on Sun04/27/23 at 0900, Until Discontinu ed, Routine zonisamide 0 Yes 50mg 50 mg, Unive rs (ZONEGRAN) 04-27 Oral, BID, ity of capsule 50 13:00: First dose [place] mg 00 on Sun [facility] 04/27/23 at Branch 0800, Until Discontinu ed, Routine divalproex 0 Yes 1250mg 1,250 mg, Univers ER 04-27 Oral, QHS, ity of (DEPAKOTE 02:00: First dose [place] ER) 24 hr 00 (after Medical tablet last Branch 1,250 mg modificati on) on [facility] 04/26/23 at 2100, Until Discontinu ed, Routine rosuvastati Yes 10mg 10 mg, Univ ers n (CRESTOR) 04-27 Oral, QHS, it y of tablet 10 02:00: First dose [place] mg 00 on [facility] 04/26/23 at Branch 2100, Until Discontinu ed, Routine carBAMazepi 2022- No 600mg 600 mg, U nivers ne 04-27- Oral, ity of (TEGRETOL) 02:00: 11:42 QAM+HS, [place] tablet 600 00 :30 First dose Med ical mg (after Branch last modificati on) on [facility] 04/26/23 at 2100, Until Discontinu ed gadoteridol 2022-2022- No [id number] .2mL/kg 23.14 mL Univers (PROHANCE-2 04-26 (0.2 mL/kg i ty of 0 mL) 20:45: 19:38 ?115.7 [place] injection 00 :00 kg), Medical 23.14 mL Intravenou Branc h s, ONCE, 1 dose, On [facility] 04/26/23 at 1545, Routine LORazepam 2022- No 1mg 1 mg, Univer s (ATIVAN) 04-26 Oral, ity of tablet 1 mg 18:30: 18:30 ONCE, 1 [place] 00 :[place] dose, On Medical [facility] 04/26/23 Branch at 1330, Routine divalproex 0 Yes 1000mg 1,000 mg, Univers ER 04-26 Oral, QAM ity of (DEPAKOTE 17:00: + NOON, [place] ER) 24 hr 00 First dose Medi rohan tablet (after Branch 1,000 mg last modificati on) on [place] 04/26/23 at 1200, Until Discontinu ed, Routine carBAMazepi 2022- No 300mg 300 mg, U nivers ne 04-26 Oral, ity of (TEGRETOL) 17:00: 11:42 QNOON, [place] tablet 300 00 :30 First dose Med ical mg on [place] Branch 04/26/23 at 1200, Until Discontinu ed, Routine divalproex 2022- No 750mg 750 mg, Un [facility] ER 04-26 Oral, ity of (DEPAKOTE 14:52: 16:24 ONCE, 1 [place] 24 hr 00 :00 dose, On Medica l tablet 750 [facility] 04/26/23 Bra nch mg at 1000, Routine hydroCHLORO 0 Yes 25mg 25 mg, [facility] ers thiazide 04-26 Oral, ity of (ESIDRIX) 14:00: DAILY, [place] tablet 25 00 First dose Medi rohan mg on [facility] Branch 04/26/23 at 0900, Until Discontinu ed, Routine pantoprazol Yes 40mg 40 mg, [facility] ers e 04-26 Oral, ity of (PROTONIX) 14:00: DAILY, [place] EC tablet 00 First dose Medi rohan 40 mg on [facility] Branch 04/26/23 at 0900, Until Discontinu ed, Routine divalproex 2022- No 250mg 250 mg, Un luisa ER 04-26 Oral, ity of (DEPAKOTE 14:00: 14:50 DAILY, [place] ER) 24 hr 00 :57 First dose Medi rohan tablet 250 on [facility] Branch mg 04/26/23 at 0900, Until Discontinu ed, Routine Sliding 2022-0 Yes Subcutaneo [facility] ers Scale 04-26 us, TID ity of Insulin - 13:00: MEALS+HS, [place] Lispro 00 First dose Medical (HumaLOG) on [facility] Branch 04/26/23 at 0800, Until Discontinu ed, Routine topiramate 0 Yes 200mg 200 mg, Uni vers (TOPAMAX) 04-26 Oral, BID, ity of tablet 200 13:00: [place] mg 00 on [facility] 04/26/23 at Branch 0800, Until Discontinu ed, Routine
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 Restricted medication : SELVIN HANSEN V heparin 2022-0 Yes 5000U 5,000 [facility] (porcine) 04-26 Units, ity of injection 13:00: Subcutaneo [place] 5,000 Units 00 us, Q12H, Med ical First dose Branch on [facility] 04/26/23 at 0800, Until Discontinu ed, Routine clonazePAM 2022-0 2022- No 1mg 1 mg, Unive rs (KLONOPIN) 04-26 06-09 Oral, TID, it y of tablet 1 mg 13:00: 19:03 First dose [place] 00 :35 on [facility] 04/26/23 at Branch 0800, Until Discontinu ed, Routine levothyroxi 0 Yes 75ug 75 mcg, Uni vers ne 04-26 Oral, ity of (SYNTHROID) 11:00: QAM-0600, [place] tablet 75 00 First dose Medi rohan mcg on [facility] 04/26/23 at 0600, Until Discontinu ed, Routine carBAMazepi 0 2022- No 300mg 300 mg, U nivers ne 04-26 06-08 Oral, ity of (TEGRETOL) 08:45: 14:50 Q12H, [place] tablet 300 00 :57 First dose Med ical mg on [facility] 04/26/23 at 0345, Until Discontinu ed glucagon 0 Yes 1mg 1 mg, Univers (GLUCAGEN 04-26 Intramuscu ity of DIAGNOSTIC 08:33: [place], PRN, [place] KIT) 22 Starting Medical injection 1 on [facility] Branch mg 04/26/23 at 0333, Until Discontinu ed, EVELYNE, Blood Glucose < or = 70 mg/dL and patient is NPO, unable to swallow or has mental changes. dextrose 50 2022-0 Yes 25mL 25 mL, Univ ers % in water 04-26 Slow IV ity of (D50W) 08:33: Push, PRN, [place] injection 22 Starting Medica l 25 mL on [place] Branch 04/26/23 at 0333, Until Discontinu ed, EVELYNE, Blood Glucose < or = 70 mg/dL and patient is NPO, unable to swallow or has mental status changes. acetaminoph Yes 650mg 650 mg, Un luisa en 608 Oral, ity of (TYLENOL) 06:08: Q6HPRN, [place] tablet 650 42 Starting Medic al mg on [place] Branch 04/26/23 at 0108, Until Discontinu ed, Routine, Pain (scale 4-6) docusate Yes 100mg 100 mg, Unive rs (COLACE) 08 Oral, ity of capsule 100 06:08: QDAILYPRN, [place] mg 42 Starting Medical on [place] Branch 04/26/23 at 0108, Until Discontinu ed, Routine, Constipati on NaCl 0.9% 2022- No 1000mL at 999 Uni vers (NS) bolus 04-26-08 mL/hr, ity of infusion 00:15: 02:30 1,000 mL, [place] 1,000 mL 00 :00 IV Medical Infusion, Branch ONCE, 1 dose, On 04/25/23 at 1915, [place] DEPAKOTE ER Yes [id number] TAKE 4 Univers 250 mg 24 6-03 TABLETS BY ity of hr tablet 00:00: MOUTH [place] 00 EVERY Medical MORNING, 4 Branch TABLETS AT NOON, AND 5 TABLETS IN EVENING DEPAKOTE ER 2022-0 2022- No [id number] TAKE 4 Univers 250 mg 24 6-03 06-16 TABLETS BY ity of hr tablet 00:00: 00:00 MOUTH [place] 00 :00 EVERY Medical MORNING, 4 Branch TABLETS AT NOON, AND 5 TABLETS IN EVENING magnesium 2022- No 2g 2 g, IV Univ ers sulfate in 04-15 Piggyback, it y of water 2 04:45: 04:56 Administer [place] gram/50 mL 00 :00 over 60 Medica l (4 %) Minutes, Branch infusion 2 ONCE, 1 g dose, On 04/14/23 at 2345, EVELYNE PHENOBARBIT Yes [id number] 64.8mg Take 1 Univers AL 64.8 mg 5-12 tablet by ity of tablet 00:00: mouth in [place] 00 the Medical morning. Branch PHENOBARBIT 2023-0 Yes [id number] 64.8mg Take 1 Univers AL 64.8 mg 5-12 tablet by ity of tablet 00:00: mouth in [place] 00 the Medical morning. Branch PHENOBARBIT 2023-0 Yes [id number] 64.8mg Take 1 Univers AL 64.8 mg 5-12 tablet by ity of tablet 00:00: mouth in [place] 00 the Medical morning. Branch PHENOBARBIT 2023-0 2023- No [id number] 64.8mg Take 1 Univers AL 64.8 mg 5-12 06-16 tablet by ity of tablet 00:00: 00:00 mouth in [place] 00 :00 the Medical morning. Branch acetaminoph 2023-0 Yes 500mg Take 1 Uni vers en (TYLENOL 4-18 tablet by ity of EXTRA 11:26: mouth [place] STRENGTH) 32 every 6 Medical 500 mg (six) Branch tablet hours as needed for Pain. hydroCHLORO 2023-0 Yes 25mg Take 1 Univ ers thiazide 25 4-18 tablet by ity of mg tablet 11:26: mouth in [place] [address] the Medical morning. Branch metFORMIN 2023-0 Yes 1000mg Take 1 Univ ers 1,000 mg 4-18 tablet by ity of tablet 11:26: mouth in [place] [address] the Medical morning Branch and 1 tablet in the evening. Take with meals. acetaminoph 2023-0 Yes 500mg Take 1 Uni vers en (TYLENOL 4-18 tablet by ity of EXTRA 11:26: mouth [place] STRENGTH) 32 every 6 Medical 500 mg (six) Branch tablet hours as needed for Pain. hydroCHLORO 2023-0 Yes 25mg Take 1 Univ ers thiazide 25 4-18 tablet by ity of mg tablet 11:26: mouth in [place] [address] the Medical morning. Branch metFORMIN 2023-0 Yes 1000mg Take 1 Univ ers 1,000 mg 4-18 tablet by ity of tablet 11:26: mouth in [place] [address] the Medical morning Branch and 1 tablet in the evening. Take with meals. acetaminoph 2023-0 Yes 500mg Take 1 Uni vers en (TYLENOL 4-18 tablet by ity of EXTRA 11:26: mouth [place] STRENGTH) 32 every 6 Medical 500 mg (six) Branch tablet hours as needed for Pain. hydroCHLORO 2023-0 Yes 25mg Take 1 Univ ers thiazide 25 4-18 tablet by ity of mg tablet 11:26: mouth in [place] [address] the Medical morning. Branch metFORMIN 2023-0 Yes 1000mg Take 1 Univ ers 1,000 mg 4-18 tablet by ity of tablet 11:26: mouth in [place] [address] the Medical morning Branch and 1 tablet in the evening. Take with meals. acetaminoph 2023-0 Yes 500mg Take 1 Uni vers en (TYLENOL 4-18 tablet by ity of EXTRA 11:26: mouth [place] STRENGTH) 32 every 6 Medical 500 mg (six) Branch tablet hours as needed for Pain. hydroCHLORO 2023-0 Yes 25mg Take 1 Univ ers thiazide 25 4-18 tablet by ity of mg tablet 11:26: mouth in [place] [address] the Medical morning. Branch metFORMIN 2023-0 Yes 1000mg Take 1 Univ ers 1,000 mg 4-18 tablet by ity of tablet 11:26: mouth in [place] [address] the Medical morning Branch and 1 tablet in the evening. Take with meals. acetaminoph 2023-0 Yes 500mg Take 1 Uni vers en (TYLENOL 4-18 tablet by ity of EXTRA 11:26: mouth [place] STRENGTH) 32 every 6 Medical 500 mg (six) Branch tablet hours as needed for Pain. hydroCHLORO 2023-0 Yes 25mg Take 1 Univ ers thiazide 25 4-18 tablet by ity of mg tablet 11:26: mouth in [place] [address] the Medical morning. Branch metFORMIN 2023-0 Yes 1000mg Take 1 Univ ers 1,000 mg 4-18 tablet by ity of tablet 11:26: mouth in [place] [address] the Medical morning Branch and 1 tablet in the evening. Take with meals. topiramate 2023-0 Yes [id number] TAKE 1 Univers (TOPAMAX) 4-18 TABLET BY ity o f 200 mg 00:00: MOUTH [place] tablet 00 TWICE A Medical DAY...NEED [facility] INSURANCE topiramate 2023-0 Yes [id number] TAKE 1 Univers (TOPAMAX) 4-18 TABLET BY ity o f 200 mg 00:00: MOUTH [place] tablet 00 TWICE A Medical DAY...NEED [facility] INSURANCE topiramate 2023-0 Yes [id number] TAKE 1 Univers (TOPAMAX) 4-18 TABLET BY ity o f 200 mg 00:00: MOUTH [place] tablet 00 TWICE A Medical DAY...[facility] NEW INSURANCE topiramate Yes [id number] TAKE 1 Univers (TOPAMAX) 4-18 TABLET BY ity o f 200 mg 00:00: MOUTH [place] tablet 00 TWICE A Medical DAY...[facility] NEW INSURANCE carBAMazepi Yes [id number] TAKE 2 Univers ne 300 mg 4-18 CAPSULES ity of 12 hr 00:00: BY MOUTH [place] capsule 00 TWICE A Medical DAY Branch divalproex Yes [id number] TAKE 4 [facility] ER 4-18 TABLETS BY ity of (DEPAKOTE 00:00: MOUTH [place] ER) 250 mg 00 EVERY Medical 24 hr MORNING, 4 Branch tablet TABLETS AT NOON, AND 5 TABLETS IN EVENINGTAK E 4 TABLETS BY MOUTH EVERY MORNING, 4 TABLETS AT NOON, AND 5 TABLETS IN EVENING topiramate Yes [id number] TAKE 1 Univers (TOPAMAX) 4-18 TABLET BY ity o f 200 mg 00:00: MOUTH [place] tablet 00 TWICE A Medical DAY...[facility] NEW INSURANCE carBAMazepi Yes [id number] TAKE 2 Univers ne 300 mg 4-18 CAPSULES ity of 12 hr 00:00: BY MOUTH [place] capsule 00 TWICE A Medical DAY Branch divalproex Yes [id number] TAKE 4 [facility] ER 4-18 TABLETS BY ity of (DEPAKOTE 00:00: MOUTH [place] ER) 250 mg 00 EVERY Medical 24 hr MORNING, 4 Branch tablet TABLETS AT NOON, AND 5 TABLETS IN EVENINGTAK E 4 TABLETS BY MOUTH EVERY MORNING, 4 TABLETS AT NOON, AND 5 TABLETS IN EVENING topiramate Yes [id number] TAKE 1 Univers (TOPAMAX) 4-18 TABLET BY ity o f 200 mg 00:00: MOUTH [place] tablet 00 TWICE A Medical DAY...[facility] NEW INSURANCE carBAMazepi Yes [id number] TAKE 2 Univers ne 300 mg 4-18 CAPSULES ity of 12 hr 00:00: BY MOUTH [place] capsule 00 TWICE A Medical DAY Branch divalproex Yes [id number] TAKE 4 Univers ER 4-18 TABLETS BY ity of (DEPAKOTE 00:00: MOUTH [place] ER) 250 mg 00 EVERY Medical 24 hr MORNING, 4 Branch tablet TABLETS AT NOON, AND 5 TABLETS IN EVENINGTAK E 4 TABLETS BY MOUTH EVERY MORNING, 4 TABLETS AT NOON, AND 5 TABLETS IN EVENING topiramate Yes [id number] TAKE 1 Univers (TOPAMAX) 4-18 TABLET BY ity o f 200 mg 00:00: MOUTH [place] tablet 00 TWICE A Medical DAY...[facility] INSURANCE carBAMazepi Yes [id number] TAKE 2 Univers ne 300 mg 4-18 CAPSULES ity of 12 hr 00:00: BY MOUTH [place] capsule 00 TWICE A Medical DAY Branch divalproex Yes [id number] TAKE 4 [facility] ER 4-18 TABLETS BY ity of (DEPAKOTE 00:00: MOUTH [place] ER) 250 mg 00 EVERY Medical 24 hr MORNING, 4 Branch tablet TABLETS AT NOON, AND 5 TABLETS IN EVENINGTAK E 4 TABLETS BY MOUTH EVERY MORNING, 4 TABLETS AT NOON, AND 5 TABLETS IN EVENING topiramate Yes [id number] TAKE 1 Univers (TOPAMAX) 4-18 TABLET BY ity o f 200 mg 00:00: MOUTH [place] tablet 00 TWICE A Medical DAY...[facility] carBAMazepi Yes [id number] TAKE 2 Univers ne 300 mg 4-18 CAPSULES ity of 12 hr 00:00: BY MOUTH [place] capsule 00 TWICE A Medical DAY Branch topiramate Yes [id number] TAKE 1 Univers (TOPAMAX) 4-18 TABLET BY ity o f 200 mg 00:00: MOUTH [place] tablet 00 TWICE A Medical DAY...[facility] NEW INSURANCE topiramate Yes [id number] TAKE 1 Univers (TOPAMAX) 4-18 TABLET BY ity o f 200 mg 00:00: MOUTH [place] tablet 00 TWICE A Medical DAY...[facility] NEW INSURANCE topiramate 2022- No [id number] TAKE 1 Univers (TOPAMAX) 4-18 07-11 TABLET BY ity of 200 mg 00:00: 00:00 MOUTH [place] tablet 00 :00 TWICE A Medical DAY...[facility] NEW INSURANCE topiramate 2022- No [id number] TAKE 1 Univers (TOPAMAX) 4-18 07-11 TABLET BY ity of 200 mg 00:00: 00:00 MOUTH [place] tablet 00 :00 TWICE A Medical DAY...NEED [place] NEW INSURANCE topiramate No [id number] TAKE 1 Univers (TOPAMAX) 4-18 07-11 TABLET BY ity of 200 mg 00:00: 00:00 MOUTH [place] tablet 00 :00 TWICE A Medical DAY...[facility] NEW INSURANCE carBAMazepi No [id number] TAKE 2 Univers ne 300 mg 4-18 06-16 CAPSULES ity o f 12 hr 00:00: 00:00 BY MOUTH [place] capsule 00 :00 TWICE A Medical DAY [place] divalproex No [id number] TAKE 4 Univers ER 4-18 06-03 TABLETS BY ity of (DEPAKOTE 00:00: 00:00 MOUTH [place] ER) 250 mg 00 :00 EVERY Medical 24 hr MORNING, 4 Branch tablet TABLETS AT NOON, AND 5 TABLETS IN EVENINGTAK E 4 TABLETS BY MOUTH EVERY MORNING, 4 TABLETS AT NOON, AND 5 TABLETS IN EVENING divalproex No [id number] TAKE 4 [facility] ER 4-18 04-18 TABLETS BY ity of (DEPAKOTE 00:00: 00:00 MOUTH [place] ER) 250 mg 00 :00 EVERY Medical 24 hr MORNING, 4 Branch tablet TABLETS AT NOON, AND 5 TABLETS IN EVENINGTAK E 4 TABLETS BY MOUTH EVERY MORNING, 4 TABLETS AT NOON, AND 5 TABLETS IN EVENING carBAMazepi No [id number] TAKE 2 [facility] ne 300 mg 4-18 04-18 CAPSULES ity o f 12 hr 00:00: 00:00 BY MOUTH [place] capsule 00 :00 TWICE A Medical DAY [place] topiramate No [id number] TAKE 1 Univers (TOPAMAX) 4-18 04-18 TABLET BY ity of 200 mg 00:00: 00:00 MOUTH [place] tablet 00 :00 TWICE A Medical DAY...[facility] INSURANCE divalproex No [id number] TAKE 4 Univers ER 4-18 04-18 TABLETS BY ity of (DEPAKOTE 00:00: 00:00 MOUTH [place] ER) 250 mg 00 :00 EVERY Medical 24 hr MORNING, 4 Branch tablet TABLETS AT NOON, AND 5 TABLETS IN EVENINGTAK E 4 TABLETS BY MOUTH EVERY MORNING, 4 TABLETS AT NOON, AND 5 TABLETS IN EVENING carBAMazepi No [id number] TAKE 2 Univers ne 300 mg -18 -18 CAPSULES ity o f 12 hr 00:00: 00:00 BY MOUTH [place] capsule 00 :00 TWICE A Medical DAY Branch topiramate 2022- No [id number] TAKE 1 Univers (TOPAMAX) 18 -18 TABLET BY ity of 200 mg 00:00: 00:00 MOUTH [place] tablet 00 :00 TWICE A Medical DAY...NEED [facility] NEW INSURANCE divalproex No 1000mg 1,000 mg, Univers ER 02-21 Oral, ity of (DEPAKOTE 16:00: 15:37 ONCE, 1 [place]) 24 hr 00 :00 dose, On Medica l tablet Sun02/21/23 Branch 1,000 mg at 1100, Routine PHENobarbit No 64.8mg 64.8 mg, Univers aL tablet 02-21 Oral, ity of 64.8 mg 15:45: 15:36 ONCE, 1 [place] 00 :00 dose, On Medical Sun02/21/23 Branch at 1045, Routine carBAMazepi No 400mg 400 mg, U nivers ne 02-2105 Oral, ity of (TEGRETOL) 15:30: 15:35 ONCE, 1 [place] tablet 400 00 :00 dose, On Medic al mg Sun02/21/23 Branch at 1030, Routine
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
[facility] for non-formul aliyah use: PATIENT CURRENTLY TAKING NONFORMULA RY PRODUCT carBAMazepi Yes [id number] TAKE 2 [facility] ne 300 mg 4-05 CAPSULES ity of 12 hr 00:00: BY MOUTH [place] capsule 00 TWICE A Medical DAY Branch divalproex Yes [id number] TAKE 4 [facility] ER 4-05 TABLETS BY ity of (DEPAKOTE 00:00: MOUTH [place] ER) 250 mg 00 EVERY Medical 24 hr MORNING, 4 Branch tablet TABLETS AT NOON, AND 5 TABLETS IN EVENINGTAK E 4 TABLETS BY MOUTH EVERY MORNING, 4 TABLETS AT NOON, AND 5 TABLETS IN EVENING carBAMazepi 2022- No [id number] TAKE 2 Univers ne 300 mg 4-05 04-18 CAPSULES ity o f 12 hr 00:00: 00:00 BY MOUTH [place] capsule 00 :00 TWICE A Medical DAY Branch divalproex 2022- No [id number] TAKE 4 Univers ER 4-03 22-18 TABLETS BY ity of (DEPAKOTE 00:00: 00:00 MOUTH [place] ER) 250 mg 00 :00 EVERY Medical 24 hr MORNING, 4 Branch tablet TABLETS AT NOON, AND 5 TABLETS IN EVENINGTAK E 4 TABLETS BY MOUTH EVERY MORNING, 4 TABLETS AT NOON, AND 5 TABLETS IN EVENING carBAMazepi 2022- No [id number] TAKE 2 Univers ne 300 mg 4-03 22-18 CAPSULES ity o f 12 hr 00:00: 00:00 BY MOUTH [place] capsule 00 :00 TWICE A Medical DAY Branch divalproex 2022- No [id number] TAKE 4 Univers ER 4-03 22-18 TABLETS BY ity of (DEPAKOTE 00:00: 00:00 MOUTH [place] ER) 250 mg 00 :00 EVERY Medical 24 hr MORNING, 4 Branch tablet TABLETS AT NOON, AND 5 TABLETS IN EVENINGTAK E 4 TABLETS BY MOUTH EVERY MORNING, 4 TABLETS AT NOON, AND 5 TABLETS IN EVENING PHENobarbit 2022- No 64.8mg Take 1 U nivers aL 64.8 mg 3-12 -12 tablet by ity of tablet 00:00: 00:00 mouth in [place] 00 :00 the Medical morning. Branch CARBAMAZEPI Yes [id number] TAKE 2 Univers [place] 300 mg 1-25 CAPSULES ity of 12 hr 00:00: BY MOUTH [place] capsule 00 TWICE A Medical DAY Branch CARBAMAZEPI Yes [id number] TAKE 2 [facility] [place] 300 mg 1-25 CAPSULES ity of 12 hr 00:00: BY MOUTH [place] capsule 00 TWICE A Medical DAY Branch CARBAMAZEPI Yes [id number] TAKE 2 [facility] [place] 300 mg 1-25 CAPSULES ity of 12 hr 00:00: BY MOUTH [place] capsule 00 TWICE A Medical DAY Branch CARBAMAZEPI 2022- No [id number] TAKE 2 [facility] [place] 300 mg 1-25 -05 CAPSULES ity o f 12 hr 00:00: 00:00 BY MOUTH [place] capsule 00 :00 TWICE A Medical DAY Branch PHENobarbit 2022-0 Yes [id number] 64.8mg Take 1 Univers aL 64.8 mg 1-09 tablet by ity of tablet 00:00: mouth in [place] 00 the Medical morning. Branch topiramate 2022-0 Yes [id number] TAKE 1 Un luisa (TOPAMAX) 1-09 TABLET BY ity o f 200 mg 00:00: MOUTH [place] tablet 00 TWICE A Medical DAY...NEED [place] NEW INSURANCE clonazePAM 2022-0 Yes [id number] 1mg Take 1 Univers 1 mg tablet 1-09 tablet by ity of 00:00: mouth in [place] 00 the Medical morning Branch and 1 tablet at noon and 1 tablet in the evening. divalproex 2022-0 Yes [id number] TAKE 4 Univers ER 1-09 TABLETS BY ity of (DEPAKOTE 00:00: MOUTH [place] ER) 250 mg 00 EVERY Medical 24 hr MORNING, 4 Branch tablet TABLETS AT NOON, AND 5 TABLETS IN EVENING PHENobarbit 2022-0 Yes [id number] 64.8mg Take 1 Univers aL 64.8 mg 1-09 tablet by ity of tablet 00:00: mouth in [place] 00 the Medical morning. Branch topiramate 2022-0 Yes [id number] TAKE 1 Un luisa (TOPAMAX) 1-09 TABLET BY ity o f 200 mg 00:00: MOUTH [place] tablet 00 TWICE A Medical DAY...NEED [place] NEW INSURANCE clonazePAM 2022-0 Yes [id number] 1mg Take 1 Univers 1 mg tablet 1-09 tablet by ity of 00:00: mouth in [place] 00 the Medical morning Branch and 1 tablet at noon and 1 tablet in the evening. divalproex 2022-0 Yes [id number] TAKE 4 Univers ER 1-09 TABLETS BY ity of (DEPAKOTE 00:00: MOUTH [place] ER) 250 mg 00 EVERY Medical 24 hr MORNING, 4 Branch tablet TABLETS AT NOON, AND 5 TABLETS IN EVENING PHENobarbit 2022-0 Yes [id number] 64.8mg Take 1 Univers aL 64.8 mg 1-09 tablet by ity of tablet 00:00: mouth in [place] 00 the Medical morning. Branch topiramate 2022-0 Yes TAKE 1 Unive rs (TOPAMAX) 1-09 TABLET BY ity o f 200 mg 00:00: MOUTH [place] tablet 00 TWICE A Medical DAY...NEED [place] NEW INSURANCE clonazePAM 2022-0 Yes [id number] 1mg Take 1 Univers 1 mg tablet 1-09 tablet by ity of 00:00: mouth in [place] 00 the Medical morning Branch and 1 tablet at noon and 1 tablet in the evening. divalproex 2022-0 Yes [id number] TAKE 4 Univers ER 1-09 TABLETS BY ity of (DEPAKOTE 00:00: MOUTH [place] ER) 250 mg 00 EVERY Medical 24 hr MORNING, 4 Branch tablet TABLETS AT NOON, AND 5 TABLETS IN EVENING PHENobarbit 202-0 Yes [id number] 64.8mg Take 1 Univers aL 64.8 mg 1-09 tablet by ity of tablet 00:00: mouth in [place] 00 the Medical morning. Branch topiramate 2022-0 Yes TAKE 1 Unive rs (TOPAMAX) 1-09 TABLET BY ity o f 200 mg 00:00: MOUTH [place] tablet 00 TWICE A Medical DAY...[facility] NEW INSURANCE clonazePAM 2022-0 Yes [id number] 1mg Take 1 Univers 1 mg tablet 1-09 tablet by ity of 00:00: mouth in [place] 00 the Medical morning Branch and 1 tablet at noon and 1 tablet in the evening. divalproex 2022-0 Yes [id number] TAKE 4 Univers ER 1-09 TABLETS BY ity of (DEPAKOTE 00:00: MOUTH [place] ER) 250 mg 00 EVERY Medical 24 hr MORNING, 4 Branch tablet TABLETS AT NOON, AND 5 TABLETS IN EVENING PHENobarbit 3-0 Yes [id number] 64.8mg Take 1 Univers aL 64.8 mg 1-09 tablet by ity of tablet 00:00: mouth in [place] 00 the Medical morning. Branch topiramate 2022-0 Yes TAKE 1 Unive rs (TOPAMAX) 1-09 TABLET BY ity o f 200 mg 00:00: MOUTH [place] tablet 00 TWICE A Medical DAY...NEED [place] NEW INSURANCE clonazePAM 2022-0 Yes [id number] 1mg Take 1 Univers 1 mg tablet 1-09 tablet by ity of 00:00: mouth in [place] 00 the Medical morning Branch and 1 tablet at noon and 1 tablet in the evening. divalproex 2023-0 Yes [id number] TAKE 4 Univers ER 1-09 TABLETS BY ity of (DEPAKOTE 00:00: MOUTH [place] ER) 250 mg 00 EVERY Medical 24 hr MORNING, 4 Branch tablet TABLETS AT NOON, AND 5 TABLETS IN EVENING PHENobarbit 2023-0 Yes [id number] 64.8mg Take 1 Univers aL 64.8 mg 1-09 tablet by ity of tablet 00:00: mouth in [place] 00 the Medical morning. Branch topiramate 2022-0 Yes TAKE 1 Unive rs (TOPAMAX) 1-09 TABLET BY ity o f 200 mg 00:00: MOUTH [place] tablet 00 TWICE A Medical DAY...NEED [place] NEW INSURANCE clonazePAM 3-0 Yes [id number] 1mg Take 1 Univers 1 mg tablet 1-09 tablet by ity of 00:00: mouth in [place] 00 the Medical morning Branch and 1 tablet at noon and 1 tablet in the evening. divalproex 2023-0 Yes [id number] TAKE 4 Univers ER 1-09 TABLETS BY ity of (DEPAKOTE 00:00: MOUTH [place] ER) 250 mg 00 EVERY Medical 24 hr MORNING, 4 Branch tablet TABLETS AT NOON, AND 5 TABLETS IN EVENING PHENobarbit 2023-0 Yes [id number] 64.8mg Take 1 Univers aL 64.8 mg 1-09 tablet by ity of tablet 00:00: mouth in [place] 00 the Medical morning. Branch topiramate 2022-0 Yes TAKE 1 Unive rs (TOPAMAX) 1-09 TABLET BY ity o f 200 mg 00:00: MOUTH [place] tablet 00 TWICE A Medical DAY...NEED [place] NEW INSURANCE clonazePAM 3-0 Yes [id number] 1mg Take 1 Univers 1 mg tablet 1-09 tablet by ity of 00:00: mouth in [place] 00 the Medical morning Branch and 1 tablet at noon and 1 tablet in the evening. divalproex 2023-0 Yes [id number] TAKE 4 Univers ER 1-09 TABLETS BY ity of (DEPAKOTE 00:00: MOUTH [place] ER) 250 mg 00 EVERY Medical 24 hr MORNING, 4 Branch tablet TABLETS AT NOON, AND 5 TABLETS IN EVENING PHENobarbit 2023-0 Yes [id number] 64.8mg Take 1 Univers aL 64.8 mg 11-27 tablet by ity of tablet 00:00: mouth in [place] 00 the Medical morning. Branch topiramate Yes TAKE 1 Unive rs (TOPAMAX) 11-27 TABLET BY ity o f 200 mg 00:00: MOUTH [place] tablet 00 TWICE A Medical DAY...[facility] clonazePAM Yes [id number] 1mg Take 1 Univers 1 mg tablet 11-27 tablet by ity of 00:00: mouth in [place] 00 the Medical morning Branch and 1 tablet at noon and 1 tablet in the evening. PHENobarbit 2022-2022- No [id number] 64.8mg Take 1 Univers aL 64.8 mg 11-27 tablet by ity of tablet 00:00: 00:00 mouth in [place] 00 :00 the Medical morning. Branch topiramate 2022- No TAKE 1 Univ ers (TOPAMAX) 11-27 TABLET BY ity of 200 mg 00:00: 00:00 MOUTH [place] tablet 00 :00 TWICE A Medical DAY...[facility] clonazePAM 2022-2022- No [id number] 1mg Take 1 Univers 1 mg tablet 11-27 tablet by it y of 00:00: 00:00 mouth in [place] 00 :00 the Medical morning Branch and 1 tablet at noon and 1 tablet in the evening. PHENobarbit 2022-2022- No [id number] 64.8mg Take 1 Univers aL 64.8 mg 11-27 tablet by ity of tablet 00:00: 00:00 mouth in [place] 00 :00 the Medical morning. Branch topiramate 2022- No TAKE 1 Univ ers (TOPAMAX) 11-27 TABLET BY ity of 200 mg 00:00: 00:00 MOUTH [place] tablet 00 :00 TWICE A Medical DAY...[facility] clonazePAM 2022-2022- No [id number] 1mg Take 1 Univers 1 mg tablet 11-27 tablet by it y of 00:00: 00:00 mouth in [place] 00 :00 the Medical morning Branch and 1 tablet at noon and 1 tablet in the evening. divalproex 2022-2022- No [id number] TAKE 4 Univers ER 1-09 04-05 TABLETS BY ity of (DEPAKOTE 00:00: 00:00 MOUTH [place] ER) 250 mg 00 :00 EVERY Medical 24 hr MORNING, 4 Branch tablet TABLETS AT NOON, AND 5 TABLETS IN EVENING CLONAZEPAM 2021-11 Yes [id number] TAKE 1 Univers 1 mg tablet 1-08 TABLET BY ity of 00:00: MOUTH [place] 00 THREE Medical TIMES A Branch DAY CLONAZEPAM 2021-11 Yes [id number] TAKE 1 Univers 1 mg tablet 1-08 TABLET BY ity of 00:00: MOUTH [place] 00 THREE Medical TIMES A Branch DAY CLONAZEPAM 2021-11 Yes [id number] TAKE 1 Univers 1 mg tablet 1-08 TABLET BY ity of 00:00: MOUTH [place] 00 THREE Medical TIMES A Branch DAY CLONAZEPAM 2021-11 Yes [id number] TAKE 1 [facility] 1 mg tablet 1-08 TABLET BY ity of 00:00: MOUTH [place] 00 THREE Medical TIMES A Branch DAY CLONAZEPAM 2021-11- No [id number] TAKE 1 [facility] 1 mg tablet 08 -09 TABLET BY it y of 00:00: 00:00 MOUTH [place] 00 :00 THREE Medical TIMES A Branch DAY CLONAZEPAM 2021-11- No [id number] TAKE 1 [facility] 1 mg tablet 08 -09 TABLET BY it y of 00:00: 00:00 MOUTH [place] 00 :00 THREE Medical TIMES A Branch DAY TOPAMAX 200 2021-11 Yes [id number] TAKE 1 U nivers mg tablet 0-04 TABLET BY ity o f 00:00: MOUTH [place] 00 TWICE A Medical DAY...NEED [place] [employer] TOPAMAX 200 2021-11 Yes [id number] TAKE 1 U nivers mg tablet 0-04 TABLET BY ity o f 00:00: MOUTH [place] 00 TWICE A Medical DAY...NEED [place] [employer] TOPAMAX 200 2021-11 Yes [id number] TAKE 1 U nivers mg tablet 0-04 TABLET BY ity o f 00:00: MOUTH [place] 00 TWICE A Medical DAY...NEED [place] [employer] TOPAMAX 200 2021-11 Yes [id number] TAKE 1 U nivers mg tablet 0-04 TABLET BY ity o f 00:00: MOUTH [place] 00 TWICE A Medical DAY...NEED [place] [employer] TOPAMAX 200 2021-11 Yes [id number] TAKE 1 U nivers mg tablet 0-04 TABLET BY ity o f 00:00: MOUTH [place] 00 TWICE A Medical DAY...NEED [place] [employer] TOPAMAX 200 2021-11 Yes [id number] TAKE 1 U nivers mg tablet 0-04 TABLET BY ity o f 00:00: MOUTH [place] 00 TWICE A Medical DAY...NEED [place] [employer] TOPAMAX 2021-11 Yes [id number] TAKE 1 U nivers mg tablet 0-04 TABLET BY ity o f 00:00: MOUTH [place] 00 TWICE A Medical DAY...NEED [place] [employer] TOPAMAX 2021-11 Yes [id number] TAKE 1 U nivers mg tablet 0-04 TABLET BY ity o f 00:00: MOUTH [place] 00 TWICE A Medical DAY...NEED [place] [employer] TOPAMAX 2021-11- No [id number] TAKE 1 [facility] mg tablet 0-04 01-09 TABLET BY ity of 00:00: 00:00 MOUTH [place] 00 :00 TWICE A Medical DAY...NEED [place] [employer] TOPAMAX 2021-11- No [id number] TAKE 1 [facility] mg tablet 0-04 01-09 TABLET BY ity of 00:00: 00:00 MOUTH [place] 00 :00 TWICE A Medical DAY...NEED [place] [employer] DEPAKOTE ER Yes [id number] TAKE 4 [facility] 250 mg 24 8-08 TABLETS BY ity of hr tablet 00:00: MOUTH [place] 00 EVERY Medical MORNING, 4 Branch TABLETS AT NOON, AND 5 TABLETS IN EVENING DEPAKOTE ER Yes [id number] TAKE 4 [facility] 250 mg 24 8-08 TABLETS BY ity of hr tablet 00:00: MOUTH [place] 00 EVERY Medical MORNING, 4 Branch TABLETS AT NOON, AND 5 TABLETS IN EVENING DEPAKOTE ER 0 Yes [id number] TAKE 4 [facility] 250 mg 24 8-08 TABLETS BY ity of hr tablet 00:00: MOUTH [place] 00 EVERY Medical MORNING, 4 Branch TABLETS AT NOON, AND 5 TABLETS IN EVENING DEPAKOTE ER Yes [id number] TAKE 4 [facility] 250 mg 24 8-08 TABLETS BY ity of hr tablet 00:00: MOUTH [place] 00 EVERY Medical MORNING, 4 Branch TABLETS AT NOON, AND 5 TABLETS IN EVENING DEPAKOTE ER Yes [id number] TAKE 4 [facility] 250 mg 24 8-08 TABLETS BY ity of hr tablet 00:00: MOUTH [place] 00 EVERY Medical MORNING, 4 Branch TABLETS AT NOON, AND 5 TABLETS IN EVENING DEPAKOTE ER 2021-0 Yes [id number] TAKE 4 [facility] 250 mg 24 8-08 TABLETS BY ity of hr tablet 00:00: MOUTH [place] 00 EVERY Medical MORNING, 4 Branch TABLETS AT NOON, AND 5 TABLETS IN EVENING DEPAKOTE ER 2021-0 Yes [id number] TAKE 4 [facility] 250 mg 24 8-08 TABLETS BY ity of hr tablet 00:00: MOUTH [place] 00 EVERY Medical MORNING, 4 Branch TABLETS AT NOON, AND 5 TABLETS IN EVENING DEPAKOTE ER 2021-0 Yes [id number] TAKE 4 [facility] 250 mg 24 8-08 TABLETS BY ity of hr tablet 00:00: MOUTH [place] 00 EVERY Medical MORNING, 4 Branch TABLETS AT NOON, AND 5 TABLETS IN EVENING DEPAKOTE ER 2021-0 Yes [id number] TAKE 4 [facility] 250 mg 24 8-08 TABLETS BY ity of hr tablet 00:00: MOUTH [place] 00 EVERY Medical MORNING, 4 Branch TABLETS AT NOON, AND 5 TABLETS IN EVENING DEPAKOTE ER 2021-0 3- No [id number] TAKE 4 [facility] 250 mg 24 8-08 01-09 TABLETS BY ity of hr tablet 00:00: 00:00 MOUTH [place] 00 :00 EVERY Medical MORNING, 4 Branch TABLETS AT NOON, AND 5 TABLETS IN EVENING DEPAKOTE ER 2021-0 2022- No [id number] TAKE 4 [facility] 250 mg 24 8-08 01-09 TABLETS BY ity of hr tablet 00:00: 00:00 MOUTH [place] 00 :00 EVERY Medical MORNING, 4 Branch TABLETS AT NOON, AND 5 TABLETS IN EVENING clonazePAM 2021-0 Yes [id number] 1mg Take 1 [facility] 1 mg tablet 7-08 tablet by ity of 00:00: mouth 3 [place] 00 (three) Medical times Branch daily. divalproex 2021-0 Yes [id number] TAKE 4 [facility] ER 250 mg 7-08 TABLETS BY ity of 24 hr 00:00: MOUTH [place] tablet 00 EVERY Medical MORNING, 4 Branch TABLETS AT NOON, AND 5 TABLETS IN EVENING PHENobarbit 2021-0 Yes [id number] 64.8mg Take 1 [facility] aL 64.8 mg 7-08 tablet by ity of tablet 00:00: mouth [place] 00 daily. Medical Branch clonazePAM 2-0 Yes [id number] 1mg Take 1 [facility] 1 mg tablet 7-08 tablet by ity of 00:00: mouth 3 (three) Medical times Branch daily. divalproex 2-0 Yes [id number] TAKE 4 [facility] ER 250 mg 7-08 TABLETS BY ity of 24 hr 00:00: MOUTH [place] tablet 00 EVERY Medical MORNING, 4 Branch TABLETS AT NOON, AND 5 TABLETS IN EVENING PHENobarbit 2022-0 Yes [id number] 64.8mg Take 1 [facility] aL 64.8 mg 7-08 tablet by ity of tablet 00:00: mouth [place] 00 daily. Medical Branch clonazePAM 2021-0 Yes [id number] 1mg Take 1 [facility] 1 mg tablet 7-08 tablet by ity of 00:00: mouth 3 (three) Medical times Branch daily. PHENobarbit 2-0 Yes [id number] 64.8mg Take 1 [facility] aL 64.8 mg 7-08 tablet by ity of tablet 00:00: mouth 00 daily. Medical Branch clonazePAM 2021-0 Yes [id number] 1mg Take 1 [facility] 1 mg tablet 7-08 tablet by ity of 00:00: mouth 3 (three) Medical times Branch daily. PHENobarbit 2-0 Yes [id number] 64.8mg Take 1 [facility] aL 64.8 mg 7-08 tablet by ity of tablet 00:00: mouth [place] 00 daily. Medical Branch clonazePAM 2-0 Yes [id number] 1mg Take 1 [facility] 1 mg tablet 7-08 tablet by ity of 00:00: mouth (three) Medical times Branch daily. PHENobarbit 2-0 Yes [id number] 64.8mg Take 1 [facility] aL 64.8 mg 7-08 tablet by ity of tablet 00:00: mouth [place] 00 daily. Medical Branch clonazePAM 2-0 Yes [id number] 1mg Take 1 [facility] 1 mg tablet 7-08 tablet by ity of 00:00: mouth 3 (three) Medical times Branch daily. PHENobarbit 2022-0 Yes [id number] 64.8mg Take 1 [facility] aL 64.8 mg 7-08 tablet by ity of tablet 00:00: mouth [place] 00 daily. Medical Branch PHENobarbit Yes [id number] 64.8mg Take 1 [facility] aL 64.8 mg 7-08 tablet by ity of tablet 00:00: mouth [place] 00 daily. [facility] Branch PHENobarbit 0 Yes [id number] 64.8mg Take 1 [facility] aL 64.8 mg 7-08 tablet by ity of tablet 00:00: mouth [place] 00 daily. [facility] Branch PHENobarbit 0 Yes [id number] 64.8mg Take 1 [facility] aL 64.8 mg 7-08 tablet by ity of tablet 00:00: mouth [place] 00 daily. [facility] Branch PHENobarbit Yes [id number] 64.8mg Take 1 [facility] aL 64.8 mg 7-08 tablet by ity of tablet 00:00: mouth [place] 00 daily. [facility] Branch PHENobarbit Yes [id number] 64.8mg Take 1 [facility] aL 64.8 mg 7-08 tablet by ity of tablet 00:00: mouth [place] 00 daily. [facility] Branch PHENobarbit 2022- No [id number] 64.8mg Take 1 [facility] aL 64.8 mg 7-06 19-09 tablet by ity of tablet 00:00: 00:00 mouth [place] 00 :00 daily. [facility] Branch PHENobarbit 2022- No [id number] 64.8mg Take 1 [facility] aL 64.8 mg 7-08 -09 tablet by ity of tablet 00:00: 00:00 mouth [place] 00 :00 daily. Medical Branch clonazePAM 2021- No [id number] 1mg Take 1 [facility] 1 mg tablet 05-26 tablet by it y of 00:00: 00:00 mouth 3 [place] 00 :00 (three) Medical times Branch daily. clonazePAM 2021- No [id number] 1mg Take 1 [facility] 1 mg tablet 05-26-08 tablet by it y of 00:00: 00:00 mouth 3 [place] 00 :00 (three) Medical times Branch daily. carBAMazepi 2021- No [id number] TAKE 2 [facility] ne 300 mg 05-26- CAPSULES ity o f 12 hr 00:00: 04:59 BY MOUTH [place] capsule 00 :00 TWICE A Medical DAY Branch carBAMazepi 2021- No [id number] TAKE 2 [facility] ne 300 mg 05-26- CAPSULES ity o f 12 hr 00:00: 04:59 BY MOUTH [place] capsule 00 :00 TWICE A Medical DAY Branch carBAMazepi 2021- No [id number] TAKE 2 [facility] ne 300 mg 05-26- CAPSULES ity o f 12 hr 00:00: 04:59 BY MOUTH [place] capsule 00 :00 TWICE A Medical DAY Branch divalproex 2021- No [id number] TAKE 4 [facility] ER 250 mg 05-26- TABLETS BY ity of 24 hr 00:00: 00:00 MOUTH [place] tablet 00 :00 EVERY Medical MORNING, 4 Branch TABLETS AT NOON, AND 5 TABLETS IN EVENING DIVALPROEX 2021- No [id number] TAKE 4 [facility] ER 250 mg 05-09- TABLETS BY ity of 24 hr 00:00: 00:00 MOUTH [place] tablet 00 :00 EVERY Medical MORNING, 4 Branch TABLETS AT NOON, AND 5 TABLETS IN EVENING topiramate Yes [id number] 200mg Take 1 U nivers (TOPAMAX) 6-08 tablet by ity o f 200 mg 00:00: mouth 2 [place] tablet 00 (two) Medical times Branch daily. topiramate Yes [id number] 200mg Take 1 U nivers (TOPAMAX) 6-08 tablet by ity o f 200 mg 00:00: mouth 2 [place] tablet 00 (two) Medical times Branch daily. topiramate Yes [id number] 200mg Take 1 U nivers (TOPAMAX) 6-08 tablet by ity o f 200 mg 00:00: mouth 2 [place] tablet 00 (two) Medical times Branch daily. topiramate 2021- No [id number] 200mg Take 1 [facility] (TOPAMAX) 6-08 10-04 tablet by ity of 200 mg 00:00: 00:00 mouth 2 [place] tablet 00 :00 (two) Medical times Branch daily. CARBAMAZEPI 2021- No [id number] TAKE 2 [facility] NE 300 mg 04-10- CAPSULES ity o f 12 hr 00:00: 00:00 BY MOUTH [place] capsule 00 :00 TWICE A Medical DAY Branch PHENOBARBIT 2021- No [id number] TAKE 1 [facility] AL 64.8 mg 03-27- TABLET BY ity of tablet 00:00: 00:00 MOUTH [place] 00 :00 EVERY DAY Medical Branch CLONAZEPAM 2021- No [id number] TAKE 1 [facility] 1 mg tablet 01-27- TABLET BY it y of 00:00: 00:00 MOUTH [place] 00 :00 THREE Medical TIMES A DAY NOVUMET Yes 1{tbl} Take 1 Univer s 50-1,000 mg 5-02 tablet by ity of per tablet 00:00: mouth in [place] 00 the Medical morning Branch and 1 tablet in the evening. rosuvastati Yes 10mg Take 10 mg [facility] n 10 mg 5-02 by mouth ity of tablet 00:00: at [place] 00 bedtime. Medical Branch JANUMET Yes 1{tbl} Take 1 Univer s 50-1,000 mg 5-02 tablet by ity of per tablet 00:00: mouth in [place] 00 the Medical morning Branch and 1 tablet in the evening. rosuvastati Yes 10mg Take 10 mg [facility] n 10 mg 5-02 by mouth ity of tablet 00:00: at [place] 00 bedtime. Medical Branch NOVUMET Yes 1{tbl} Take 1 Univer s 50-1,000 mg 5-02 tablet by ity of per tablet 00:00: mouth in [place] 00 the Medical morning Branch and 1 tablet in the evening. rosuvastati Yes 10mg Take 10 mg [facility] n 10 mg 5-02 by mouth ity of tablet 00:00: at [place] 00 bedtime. Medical Branch JANUMET Yes 1{tbl} Take 1 Univer s 50-1,000 mg 5-02 tablet by ity of per tablet 00:00: mouth in [place] 00 the Medical morning Branch and 1 tablet in the evening. rosuvastati Yes 10mg Take 10 mg [facility] n 10 mg 5-02 by mouth ity of tablet 00:00: at [place] 00 bedtime. Medical Branch JANUMET Yes 1{tbl} Take 1 Univer s 50-1,000 mg 5-02 tablet by ity of per tablet 00:00: mouth in [place] 00 the Medical morning Branch and 1 tablet in the evening. rosuvastati Yes 10mg Take 10 mg [facility] n 10 mg 5-02 by mouth ity of tablet 00:00: at [place] 00 bedtime. [facility] Yes 1{tbl} Take 1 Univer s 50-1,000 mg 5-02 tablet by ity of per tablet 00:00: mouth in [place] 00 the Medical morning Branch and 1 tablet in the evening. rosuvastati Yes 10mg Take 10 mg [facility] n 10 mg 5-02 by mouth ity of tablet 00:00: at [place] 00 bedtime. [facility] Yes 1{tbl} Take 1 Univer s 50-1,000 mg 5-02 tablet by ity of per tablet 00:00: mouth in [place] 00 the Medical morning Branch and 1 tablet in the evening. rosuvastati Yes 10mg Take 10 mg [facility] n 10 mg 5-02 by mouth ity of tablet 00:00: at [place] 00 bedtime. [facility] Yes 1{tbl} Take 1 Univer s 50-1,000 mg 5-02 tablet by ity of per tablet 00:00: mouth in [place] 00 the Medical morning Branch and 1 tablet in the evening. rosuvastati Yes 10mg Take 10 mg [facility] n 10 mg 5-02 by mouth ity of tablet 00:00: at [place] 00 bedtime. [facility] Yes 1{tbl} Take 1 Un[facility] s 50-1,000 mg 5-02 tablet by ity of per tablet 00:00: mouth in [place] 00 the Medical morning Branch and 1 tablet in the evening. rosuvastati Yes 10mg Take 10 mg [facility] n 10 mg 5-02 by mouth ity of tablet 00:00: at [place] 00 bedtime. [facility] Yes 1{tbl} Take 1 Un[facility] s 50-1,000 mg 5-02 tablet by ity of per tablet 00:00: mouth in [place] 00 the Medical morning Branch and 1 tablet in the evening. rosuvastati Yes 10mg Take 10 mg [facility] n 10 mg 5-02 by mouth ity of tablet 00:00: at [place] 00 bedtime. Medical Branch [facility] Yes 1{tbl} Take 1 Univer s 50-1,000 mg 5-02 tablet by ity of per tablet 00:00: mouth in [place] 00 the Medical morning Branch and 1 tablet in the evening. rosuvastati Yes 10mg Take 10 mg [facility] n 10 mg 5-02 by mouth ity of tablet 00:00: at [place] 00 bedtime. Medical Branch [facility] Yes 1{tbl} Take 1 [facility] s 50-1,000 mg 5-02 tablet by [facility] of per tablet 00:00: mouth 2 [place] 00 (two) Medical times Branch daily. rosuvastati Yes 10mg Take 10 mg [facility] n 10 mg 5-02 by mouth ity of tablet 00:00: at [place] 00 bedtime. Medical Branch [facility] Yes 1{tbl} Take 1 [facility] s 50-1,000 mg 5-02 tablet by [facility] of per tablet 00:00: mouth 2 [place] 00 (two) Medical times Branch daily. rosuvastati Yes 10mg Take 10 mg [facility] n 10 mg 5-02 by mouth ity of tablet 00:00: at [place] 00 bedtime. Medical Branch [facility] Yes 1{tbl} Take 1 [facility] s 50-1,000 mg 5-02 tablet by ity of per tablet 00:00: mouth 2 [place] 00 (two) Medical times Branch daily. rosuvastati Yes 10mg Take 10 mg [facility] n 10 mg 5-02 by mouth ity of tablet 00:00: at [place] 00 bedtime. Medical Branch [facility] Yes 1{tbl} Take 1 [facility] s 50-1,000 mg 5-02 tablet by ity of per tablet 00:00: mouth 2 [place] 00 (two) Medical times Branch daily. rosuvastati Yes 10mg Take 10 mg [facility] n 10 mg 5-02 by mouth ity of tablet 00:00: at [place] 00 bedtime. Medical Branch [facility] Yes 1{tbl} Take 1 [facility] s 50-1,000 mg 5-02 tablet by ity of per tablet 00:00: mouth 2 [place] 00 (two) Medical times Branch daily. rosuvastati Yes 10mg Take 10 mg [facility] n 10 mg 5-02 by mouth ity of tablet 00:00: at [place] 00 bedtime. Medical Branch [facility] Yes 1{tbl} Take 1 [facility] s 50-1,000 mg 5-02 tablet by ity of per tablet 00:00: mouth 2 [place] 00 (two) Medical times Branch daily. rosuvastati Yes 10mg Take 10 mg [facility] n 10 mg 5-02 by mouth ity of tablet 00:00: at [place] 00 bedtime. Medical [facility] Yes 1{tbl} Take 1 [facility] s 50-1,000 mg 5-02 tablet by ity of per tablet 00:00: mouth 2 [place] 00 (two) Medical times Branch daily. rosuvastati Yes 10mg Take 10 mg [facility] n 10 mg 5-02 by mouth ity of tablet 00:00: at [place] 00 bedtime. Medical [facility] Yes 1{tbl} Take 1 [facility] s 50-1,000 mg 5-02 tablet by ity of per tablet 00:00: mouth 2 [place] 00 (two) Medical times Branch daily. rosuvastati Yes 10mg Take 10 mg [facility] n 10 mg 5-02 by mouth ity of tablet 00:00: at [place] 00 bedtime. Medical [facility] Yes 1{tbl} Take 1 [facility] s 50-1,000 mg 5-02 tablet by ity of per tablet 00:00: mouth 2 [place] 00 (two) Medical times Branch daily. rosuvastati Yes 10mg Take 10 mg [facility] n 10 mg 5-02 by mouth ity of tablet 00:00: at [place] 00 bedtime. Medical [facility] Yes 1{tbl} Take 1 [facility] s 50-1,000 mg 5-02 tablet by ity of per tablet 00:00: mouth 2 [place] 00 (two) Medical times Branch daily. rosuvastati Yes 10mg Take 10 mg [facility] n 10 mg 5-02 by mouth ity of tablet 00:00: at [place] 00 bedtime. Medical Branch [facility] Yes 1{tbl} Take 1 [facility] s 50-1,000 mg 5-02 tablet by ity of per tablet 00:00: mouth 2 [place] 00 (two) Medical times Branch daily. rosuvastati Yes 10mg Take 10 mg [facility] n 10 mg 5-02 by mouth ity of tablet 00:00: at [place] 00 bedtime. Medical Branch [facility] Yes 1{tbl} Take 1 [facility] s 50-1,000 mg 5-02 tablet by ity of per tablet 00:00: mouth 2 [place] 00 (two) Medical times Branch daily. rosuvastati Yes 10mg Take 10 mg [facility] n 10 mg 5-02 by mouth ity of tablet 00:00: at [place] 00 bedtime. Medical Branch [facility] Yes 1{tbl} Take 1 [facility] s 50-1,000 mg 5-02 tablet by ity of per tablet 00:00: mouth 2 [place] 00 (two) Medical times Branch daily. rosuvastati Yes 10mg Take 10 mg [facility] n 10 mg 5-02 by mouth ity of tablet 00:00: at [place] 00 bedtime. Medical Branch [facility] Yes 1{tbl} Take 1 [facility] s 50-1,000 mg 5-02 tablet by ity of per tablet 00:00: mouth 2 [place] 00 (two) Medical times Branch daily. rosuvastati Yes 10mg Take 10 mg [facility] n 10 mg 5-02 by mouth ity of tablet 00:00: at [place] 00 bedtime. Medical Branch [facility] Yes 1{tbl} Take 1 [facility] s 50-1,000 mg 5-02 tablet by ity of per tablet 00:00: mouth 2 [place] 00 (two) Medical times Branch daily. rosuvastati Yes 10mg Take 10 mg [facility] n 10 mg 5-02 by mouth ity of tablet 00:00: at [place] 00 bedtime. Medical Branch [facility] Yes 1{tbl} Take 1 [facility] s 50-1,000 mg 5-02 tablet by ity of per tablet 00:00: mouth 2 [place] 00 (two) Medical times Branch daily. rosuvastati Yes 10mg Take 10 mg [facility] n 10 mg 5-02 by mouth ity of tablet 00:00: at [place] 00 bedtime. Medical Branch [facility] Yes 1{tbl} Take 1 [facility] s 50-1,000 mg 5-02 tablet by ity of per tablet 00:00: mouth 2 [place] 00 (two) Medical times Branch daily. rosuvastati Yes 10mg Take 10 mg [facility] n 10 mg 5-02 by mouth ity of tablet 00:00: at [place] 00 bedtime. Medical [facility] Yes 1{tbl} Take 1 [facility] s 50-1,000 mg 5-02 tablet by ity of per tablet 00:00: mouth 2 [place] 00 (two) Medical times Branch daily. rosuvastati Yes 10mg Take 10 mg [facility] n 10 mg 5-02 by mouth ity of tablet 00:00: at [place] 00 bedtime. Medical [facility] Yes 1{tbl} Take 1 [facility] s 50-1,000 mg 5-02 tablet by ity of per tablet 00:00: mouth 2 [place] 00 (two) Medical times Branch daily. rosuvastati Yes 10mg Take 10 mg [facility] n 10 mg 5-02 by mouth ity of tablet 00:00: at [place] 00 bedtime. Medical [facility] Yes 1{tbl} Take 1 [facility] s 50-1,000 mg 5-02 tablet by ity of per tablet 00:00: mouth 2 [place] 00 (two) Medical times Branch daily. rosuvastati Yes 10mg Take 10 mg [facility] n 10 mg 5-02 by mouth ity of tablet 00:00: at [place] 00 bedtime. Medical [facility] Yes 1{tbl} Take 1 [facility] s 50-1,000 mg 5-02 tablet by ity of per tablet 00:00: mouth 2 [place] 00 (two) Medical times Branch daily. rosuvastati Yes 10mg Take 10 mg [facility] n 10 mg 5-02 by mouth ity of tablet 00:00: at [place] 00 bedtime. Medical Branch [facility] Yes 1{tbl} Take 1 [facility] s 50-1,000 mg 5-02 tablet by ity of per tablet 00:00: mouth 2 [place] 00 (two) Medical times Branch daily. rosuvastati Yes 10mg Take 10 mg [facility] n 10 mg 5-02 by mouth ity of tablet 00:00: at [place] 00 bedtime. Medical Branch [facility] Yes 1{tbl} Take 1 [facility] s 50-1,000 mg 5-02 tablet by ity of per tablet 00:00: mouth in [place] 00 the Medical morning Branch and 1 tablet in the evening. rosuvastati Yes 10mg Take 10 mg [facility] n 10 mg 5-02 by mouth ity of tablet 00:00: at [place] 00 bedtime. Medical Branch [facility] Yes 1{tbl} Take 1 [facility] s 50-1,000 mg 5-02 tablet by ity of per tablet 00:00: mouth in [place] 00 the Medical morning Branch and 1 tablet in the evening. rosuvastati Yes 10mg Take 10 mg [facility] n 10 mg 5-02 by mouth ity of tablet 00:00: at [place] 00 bedtime. Medical Branch [facility] Yes 1{tbl} Take 1 [facility] s 50-1,000 mg 5-02 tablet by ity of per tablet 00:00: mouth in [place] 00 the Medical morning Branch and 1 tablet in the evening. rosuvastati Yes 10mg Take 10 mg [facility] n 10 mg 5-02 by mouth ity of tablet 00:00: at [place] 00 bedtime. Medical Branch [facility] Yes 1{tbl} Take 1 [facility] s 50-1,000 mg 5-02 tablet by ity of per tablet 00:00: mouth in [place] 00 the Medical morning Branch and 1 tablet in the evening. rosuvastati Yes 10mg Take 10 mg [facility] n 10 mg 5-02 by mouth ity of tablet 00:00: at [place] 00 bedtime. Medical Branch [facility] Yes 1{tbl} Take 1 [facility] s 50-1,000 mg 5-02 tablet by ity of per tablet 00:00: mouth in [place] 00 the Medical morning Branch and 1 tablet in the evening. rosuvastati Yes 10mg Take 10 mg [facility] n 10 mg 5-02 by mouth ity of tablet 00:00: at [place] 00 bedtime. Medical Branch JANUMET Yes 1{tbl} Take 1 [facility] s 50-1,000 mg 5-02 tablet by ity of per tablet 00:00: mouth in [place] 00 the Medical morning Branch and 1 tablet in the evening. rosuvastati Yes 10mg Take 10 mg [facility] n 10 mg 5-02 by mouth ity of tablet 00:00: at [place] 00 bedtime. Medical Branch levothyroxi Yes TAKE [...] kg, Priority: STAT, Start date: 10/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, Stop date: 10/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 Saline 2016-11 No Notes: [facility] Flush 0.9% 2- (Same as: l 14:40: BD [place] 00 Posiflush) Morphine 2016-11 No 4 mg, [facility] 2-03 Route: l 14:40: IVP, ONCE, [place] Dosing Weight 77.273, kg, Priority: STAT, Start date: 10/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, Stop date: 10/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 Zofran 2016- No 4 mg, [facility] 2-03 Route: l 14:40: IVP, Drug [place] 00 form: INJ, ONCE, Dosing Weight 77.273, kg, Priority: STAT, Start date: 10/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, Stop date: 10/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 Saline 2016-11 No Notes: [facility] Flush 0.9% 2-03 (Same as: l 14:40: BD [place] 00 Posiflush) Morphine 2016-11 No 4 mg, [facility] 2-03 Route: l 14:40: IVP, ONCE, [place] 00 Dosing Weight 77.273, kg, Priority: STAT, Start date: 10/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, Stop date: 10/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 Zofran 2016-11 No 4 mg, [facility] 2-03 Route: l 14:40: IVP, Drug [place] 00 form: INJ, ONCE, Dosing Weight 77.273, kg, Priority: STAT, Start date: 10/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, Stop date: 10/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 Saline 2016-11 No Notes: [facility] Flush 0.9% 2-03 (Same as: l 14:40: BD [place] 00 Posiflush) Morphine 2016-11 No 4 mg, [facility] 2-03 Route: l 14:40: IVP, ONCE, [place] 00 Dosing Weight 77.273, kg, Priority: STAT, Start date: 10/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, Stop date: 10/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 Zofran 2016- No 4 mg, [facility] 2-03 Route: l 14:40: IVP, Drug [place] 00 form: INJ, ONCE, Dosing Weight 77.273, kg, Priority: STAT, Start date: 10/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, Stop date: 10/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 Saline 2016-11 No Notes: [facility] Flush 0.9% 2-03 (Same as: l 14:40: BD [place] 00 Posiflush) Morphine 2016-11 No 4 mg, [facility] 2-03 Route: l 14:40: IVP, ONCE, [place] 00 Dosing Weight 77.273, kg, Priority: STAT, Start date: 10/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, Stop date: 10/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 Zofran 2016-11 No 4 mg, [facility] 2-03 Route: l 14:40: IVP, Drug [place] 00 form: INJ, ONCE, Dosing Weight 77.273, kg, Priority: STAT, Start date: 10/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, Stop date: 10/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 Saline 2016-11 No Notes: [facility] Flush 0.9% 2-03 (Same as: l 14:40: BD [place] 00 Posiflush) Morphine 2016-11 No 4 mg, [facility] 2-03 Route: l 14:40: IVP, ONCE, [place] 00 Dosing Weight 77.273, kg, Priority: STAT, Start date: 10/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, Stop date: 10/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 Zofran 2016-11 No 4 mg, [facility] 2-03 Route: l 14:40: IVP, Drug [place] 00 form: INJ, ONCE, Dosing Weight 77.273, kg, Priority: STAT, Start date: 10/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, Stop date: 10/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 Saline 2016-11 No Notes: [facility] Flush 0.9% 2-03 (Same as: l 14:40: BD [place] 00 Posiflush) Morphine 2016-11 No 4 mg, [facility] 2-03 Route: l 14:40: IVP, ONCE, [place] 00 Dosing Weight 77.273, kg, Priority: STAT, Start date: 10/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, 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: 10/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 Zofran 2016-11 No 4 mg, Memoria 2-03 Route: l 14:40: IVP, Drug Asael 00 form: INJ, ONCE, Dosing Weight 77.273, kg, Priority: STAT, Start date: 10/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, 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: 10/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 Saline 2016-11 No Notes: Memoria Flush 0.9% 2-03 (Same as: l 14:40: BD [place] 00 Posiflush) Morphine 2016-11 No 4 mg, Memoria 2-03 Route: l 14:40: IVP, ONCE, [place] 00 Dosing Weight 77.273, kg, Priority: STAT, Start date: 10/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, 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: 10/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 Zofran 2016-11 No 4 mg, Memoria 2-03 Route: l 14:40: IVP, Drug Asael 00 form: INJ, ONCE, Dosing Weight 77.273, kg, Priority: STAT, Start date: 10/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, 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 date: 10/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 Saline 2016-11 No Notes: Memoria Flush 0.9% 2-03 (Same as: l 14:40: BD [place] 00 Posiflush) Morphine 2016-11 No 4 mg, Memoria 2-03 Route: l 14:40: IVP, ONCE, Asael 00 Dosing Weight 77.273, kg, Priority: STAT, Start date: 10/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, Stop date: 10/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 Zofran 2016-11 No 4 mg, Memoria 2-03 Route: l 14:40: IVP, Drug Asael 00 form: INJ, ONCE, Dosing Weight 77.273, kg, Priority: STAT, Start date: 10/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, Stop date: 10/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 Saline 2016-11 No Notes: Memoria Flush 0.9% 2-03 (Same as: l 14:40: BD [place] 00 Posiflush) Morphine 2016- No 4 mg, Memoria 2-03 Route: l 14:40: IVP, ONCE, [place] 00 Dosing Weight 77.273, kg, Priority: STAT, Start date: 10/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, Stop date: 10/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 Vital Signs Vital Name Observation Time Observation Value Comments Source Systolic blood 2023-05-29 18:07:00 132 mm[Hg] [facility] Diastolic blood 2023-05-29 18:07:00 83 mm[Hg] Unive rs[facility] Heart rate 2023-05-29 18:07:00 85 /min [facility] Respiratory rate 2023-05-29 18:07:00 18 /min [facility] Body height 2023-05-29 18:07:00 188 cm [facility] Body weight 2023-05-29 18:07:00 102.558 kg [facility] BMI 2023-05-29 18:07:00 29.03 kg/m2 [facility] Oxygen saturation in 2023-05-29 18:07:00 97 /min [facility] of Arterial blood by [facility] Pulse oximetry Branch Systolic blood 2023-05-06 16:44:00 144 mm[Hg] Univer sity of pressure [facility] Diastolic blood 2023-05-06 16:44:00 86 mm[Hg] Unive rsity of pressure [facility] Heart rate 2023-05-06 16:44:00 83 /min [facility] Body temperature 2023-05-06 16:44:00 36.67 Saloni [facility] Respiratory rate 2023-05-06 16:44:00 18 /min [facility] Oxygen saturation in 2023-05-06 16:44:00 95 /min [facility] Arter[facility] blood by [facility] Pulse oximetry Branch Body weight 2023-05-06 02:59:00 115.667 kg [facility] BMI 2023-05-06 02:59:00 32.74 kg/m2 [facility] [place] [facility] Systolic blood 2023-05-05 21:05:00 114 mm[Hg] [facility] Diastolic blood 2023-05-05 21:05:00 65 mm[Hg] Unive rsity of pressure [facility] Heart rate 2023-05-05 21:05:00 81 /min [facility] [place] [facility] Body temperature 2023-05-05 21:05:00 36.5 Saloni [facility] [place] [facility] Respiratory rate 2023-05-05 21:05:00 18 /min [facility] [place] [facility] Oxygen saturation in 2023-05-05 21:05:00 94 /min [facility] [place] [facility] Pulse oximetry Branch Body weight 2023-04-25 22:29:00 115.667 kg [facility] [place] [facility] BMI 2023-04-25 22:29:00 32.74 kg/m2 [facility] Systolic blood 2023-04-15 06:00:00 142 mm[Hg] [facility] Diastolic blood 2023-04-15 06:00:00 100 mm[Hg] Unive rs[facility] Heart rate 2023-04-15 06:00:00 75 /min [facility] Respiratory rate 2023-04-15 06:00:00 16 /min [facility] [place] [facility] Oxygen saturation in 2023-04-15 06:00:00 100 /min [facility] [place] [facility] Pulse oximetry Branch Body temperature 2023-04-15 02:48:00 35.61 Saloni [facility] [place] [facility] Body height 2023-04-15 02:48:00 188 cm [facility] Body weight 2023-04-15 02:48:00 115.667 kg [facility] BMI 2023-04-15 02:48:00 32.74 kg/m2 [facility] Systolic blood 2023-03-06 16:23:00 139 mm[Hg] [facility] Diastolic blood 2023-03-06 16:23:00 89 mm[Hg] Unive rs[facility] Heart rate 2023-03-06 16:22:00 83 /min [facility] [place] [facility] Respiratory rate 2023-03-06 16:22:00 18 /min [facility] [place] [facility] Body weight 2023-03-06 16:22:00 115.667 kg [facility] [place] [facility] BMI 2023-03-06 16:22:00 34.58 kg/m2 [facility] [place] [facility] Oxygen saturation in 2023-03-06 16:22:00 96 /min [facility] blood by [facility] Pulse oximetry Branch Systolic blood 2023-02-21 16:15:00 165 mm[Hg] Univer [facility] Diastolic blood 2023-02-21 16:15:00 86 mm[Hg] Unive rs[facility] Heart rate 2023-02-21 16:15:00 96 /min [facility] [place] [facility] Respiratory rate 2023-02-21 16:15:00 20 /min [facility] [place] [facility] Oxygen saturation in 2023-02-21 16:15:00 99 /min [facility] Ar[facility] blood by [facility] Pulse oximetry Branch Body temperature 2023-02-21 14:57:00 36.11 Saloni [facility] [place] [facility] Body weight 2023-02-21 13:44:00 115.667 kg [facility] BMI 2023-02-21 13:44:00 34.58 kg/m2 [facility] Systolic blood 2022-11-27 14:29:00 153 mm[Hg] Un[facility] Diastolic blood 2022-11-27 14:29:00 87 mm[Hg] Unive rsity of pressure [facility] Heart rate 2022-11-27 14:29:00 105 /min [facility] [place] [facility] Body height 2022-11-27 14:29:00 182.9 cm [facility] Body weight 2022-11-27 14:29:00 115.667 kg [facility] BMI 2022-11-27 14:29:00 34.58 kg/m2 [facility] Oxygen saturation in 2022-11-27 14:29:00 96 /min [facility] blood [facility] Pulse oximetry Branch Respitory Rate 2017-10-21 17:26:00 Adriano al Asael Heart Rate 2017-10-21 17:26:00 [facility]ael Systolic (mm Hg) 2017-10-21 17:26:00 Randy Vyas Diastolic (mm Hg) 2017-10-21 17:26:00 Mem orial Asael Temperature Oral (F) 2017-10-21 17:26:00 98.8 F [facility] [place] Temperature Oral (F) 2017-10-21 14:13:00 99 F Jamin Vyas Heart Rate 2017-10-21 14:13:00 Jamin Vyas Respitory Rate 2017-10-21 14:13:00 Adriano Branch Height 2017-10-21 14:13:00 170.18 cm Jamin Vyas Systolic (mm Hg) 2017-10-21 14:13:00 Randy Vyas Diastolic (mm Hg) 2017-10-21 14:13:00 Abhay Vyas Weight 2017-10-21 14:13:00 Jamin Vyas BMI Calculated 2017-10-21 14:13:00 Adriano Branch Procedures Procedure Date / Time Performing Source Performed Clinician POCT GLUCOSE (AUTOMATED) 2023-05-06 DylanTriston [facility] 16:46:00 , [facility] POCT GLUCOSE (AUTOMATED) 2023-05-06 DylanTriston [facility] 12:59:00 , [facility] URINALYSIS 2023-05-06 Ryan Boone [facility] ex 06:24:00 [facility] HEAD WO CONTRAST 2023-05-06 Ryan Boone [facility] 04:15:29 [facility] CREATINE KINASE [facility]23-05-[facility] 03:47[facility]00 [facility] COMP. METABOLIC PANEL (34437) 2023-05-06 Ryan Boone [facility] 03:47:00 [facility] VALPROIC ACID, FREE 2023-05-06 Ryan Boone [facility] 03:47:00 [facility] CBC WITH DIFF 2023-05-06 Ryan Boone [facility] ex 03:47:00 [facility] JUAN DANIEL AURIS SURVEILLANCE BY 2023-05-06 Ryan Boone [facility] PCR (INFECTION CONTROL 03:47:00 Medical B ranch PURPOSES) POCT GLUCOSE (AUTOMATED) 2023-05-06 Doctor Unassigned, [facility] 03:06:00 [facility] POCT GLUCOSE (AUTOMATED) 2023-05-05 Selvin Hansen [facility] 21:59:00 Medical Branch POCT GLUCOSE (AUTOMATED) 2023-05-05 Tyrone [facility] 16:37:00 Medical Branch COVID-19 (ID NOW RAPID 2023-05-[facility] 16:09:00 Medical Branch POCT GLUCOSE (AUTOMATED) 2023-05-05 Hansen [facility] ity [facility] 13:00:00 Medical Branch POCT GLUCOSE (AUTOMATED) 2023-05-05 Tyrone [facility] ity [facility] 01:26:00 Medical Branch POCT GLUCOSE (AUTOMATED) 2023-05-04 Tyrone [facility] ity [facility] 22:14:00 Medical Branch POCT GLUCOSE (AUTOMATED) 2023-05-04 Tyrone [facility] ity [facility] 16:32:00 Medical Branch POCT GLUCOSE (AUTOMATED) 2023-05-04 [facility] 13:09:00 Medical Branch MAGNESIUM 2023-05-04 Susan Munson [facility] [place] xas 08:14:00 Medical Branch BASIC METABOLIC PANEL (NA, K, 2023-05-04 Susan Munson [facility] CL, CO2, GLUCOSE, BUN, 08:14:00 Medical B ran CREATININE, CA) POCT GLUCOSE (AUTOMATED) 2023-05-04 [facility] 00:55:00 Medical Branch POCT GLUCOSE (AUTOMATED) 2023-05-03 Tyrone [facility] ity [facility] 21:28:00 Medical Branch POCT GLUCOSE (AUTOMATED) 2023-05-03 Tyrone [facility] 16:49:00 Medical Branch POCT GLUCOSE (AUTOMATED) 2023-05-03 Tyrone [facility] ity [facility] 12:46:00 Medical Branch POCT GLUCOSE (AUTOMATED) 2023-05-03 Tyrone [facility] ity [facility] 01:54:00 Medical Branch POCT GLUCOSE (AUTOMATED) 2023-05-02 Tyrone [facility] ity [facility] 22:04:00 Medical Branch POCT GLUCOSE (AUTOMATED) 2023-05-02 Tyrone [facility] ity [facility] 16:59:00 Medical Branch POCT GLUCOSE (AUTOMATED) 2023-05-02 Tyrone [facility] ity [facility] 13:39:00 Medical Branch MAGNESIUM 2023-05-02 [facility] 11:30:00 [facility] BASIC METABOLIC PANEL (NA, K, 2023-05-02 Jeimy [facility] CL, CO2, GLUCOSE, BUN, 11:30:00 Medical B ranch CREATININE, CA) CBC WITH DIFF 2023-05-02 [facility] 11:30:00 [facility] POCT GLUCOSE (AUTOMATED) 2023-05-02 [facility] 01:28:00 [facility] POCT GLUCOSE (AUTOMATED) 2023-05-01 Tyrone [facility] 22:45:00 [facility] POCT GLUCOSE (AUTOMATED) 2023-05-01 Tyrone [facility] 17:25:00 [facility] POCT GLUCOSE (AUTOMATED) 2023-05-01 Tyrone [facility] 13:37:00 [facility] POCT GLUCOSE (AUTOMATED) 2023-05-01 Tyrone [facility] 01:02:00 [facility] POCT GLUCOSE (AUTOMATED) 2023-04-30 Tyrone [facility] 21:36:00 [facility] POCT GLUCOSE (AUTOMATED) 2023-04-30 Tyrone [facility] 17:03:00 [facility] POCT GLUCOSE (AUTOMATED) 2023-04-30 Tyrone [facility] 12:43:00 [facility] MAGNESIUM 2023-04-30 [facility] 11:10:00 [facility] BASIC METABOLIC PANEL (NA, K, 2023-04-30 Marlon Williamson [facility] CL, CO2, GLUCOSE, BUN, 11:10:00 Medical B ranch CREATININE, CA) VALPROIC ACID, FREE 2023-04-30 Ronna Nesbitt [facility] 11:10:00 Medical Branch CBC WITH DIFF 2023-04-30 [facility] 11:10:00 [facility] POCT GLUCOSE (AUTOMATED) 2023-04-30 Tyrone [facility] 01:35:00 [facility] POCT GLUCOSE (AUTOMATED) 2023-04-29 Tyrone [facility] 21:21:00 [facility] POCT GLUCOSE (AUTOMATED) 2023-04-29 Tyrone [facility] 17:05:00 [facility] POCT GLUCOSE (AUTOMATED) 2023-04-29 Tyrone [facility] 12:56:00 [facility] POCT GLUCOSE (AUTOMATED) 2023-04-29 Tyrone [facility] 01:53:00 [facility] POCT GLUCOSE (AUTOMATED) 2023-04-28 Tyrone [facility] 21:52:00 [facility] AMMONIA, PLASMA 2023-04-28 [facility] 21:17:00 [facility] COMP. 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 SHUNT CULTURE 2023-04-28 [facility] 18:30:00 [facility] CYTO SPINAL FLUID 2023-04-28 [facility] 18:30:00 [facility] MISCELLANEOUS SEND OUT TEST 2023-04-28 [facility] 18:30:00 [facility] EXTRA TUBE CSF 2023-04-28 [facility] 18:30:00 [facility] CSF CULTURE 2023-04-28 [facility] 18:30:00 [facility] MENINGITIS/ENCEPHALITIS PANEL 2023-04-28 Marlon Williamson [facility] BY PCR 18:30:00 [facility] POCT GLUCOSE (AUTOMATED) 2023-04-28 Tyrone [facility] 16:43:00 [facility] CEREBROSPINAL FLUID PROTEIN 2023-04-28 Marlon Williamson [facility] 16:30:00 [facility] CEREBROSPINAL FLUID GLUCOSE 2023-04-28 [facility] 16:30:00 [facility] POCT GLUCOSE (AUTOMATED) 2023-04-28 [facility] 13:08:00 [facility] POCT GLUCOSE (AUTOMATED) 2023-04-28 [facility] 01:35:00 [facility] POCT GLUCOSE (AUTOMATED) 2023-04-27 Tyrone [facility] 23:09:00 [facility] VITAMIN B12, LEVEL 2023-04-27 [facility] 20:31:00 Medical Branch FOLATE 2023-04-27 [facility] 20:31:00 Medical Branch PROTHROMBIN TIME / INR 2023-04-27 [facility] 20:31:00 [facility] POCT GLUCOSE (AUTOMATED) 2023-04-27 [facility] 16:41:00 [facility] POCT GLUCOSE (AUTOMATED) 2023-04-27 [facility] 14:28:00 [facility] URINE DRUG (IMMUNOASSAY) - 2023-04-27 [facility]PREHENSIVE [facility]CREEN 14:17:00 [facility] POCT GLUCOSE (AUTOMATED) 2023-04-27 [facility] 14:05:00 [facility] POCT GLUCOSE (AUTOMATED) 2023-04-27 [facility] 02:32:00 [facility] POCT GLUCOSE (AUTOMATED) 2023-04-26 [facility] 22:39:00 [facility] POCT GLUCOSE (AUTOMATED) 2023-04-26 [facility] 20:05:00 [facility] MR BRAIN W WO CONTRAST WITH 2023-04-26 Osbaldo Garcia, [facility] NEUROQUANT 19:40:00 Alison [facility] POCT GLUCOSE (AUTOMATED) 2023-04-26 [facility] 13:09:00 [facility] PHOSPHORUS 2023-04-26 [facility] 11:23:00 [facility] THYROID STIMULATING HORMONE 2023-04-[facility] 11:23:00 [facility] HEPATIC FUNCTION PANEL 2023-04-26 [facility] (22235) (ALB,T.PRO,BILI 11:23:00 [facility] T,BU/BC,ALT,AST,ALK PHOS) LIPID PANEL ([id number])(TOTAL 2023-04-26 Susan Munson [facility] CHOLESTEROL, TRIGLYCERIDES, 11:23:00 [facility] HDL) GLYCOSYLATED HEMOGLOBIN (A1C) 2023-04-26 Susan Munson [facility] 11:23:00 [facility] MISCELLANEOUS SEND OUT TEST 2023-04-26 Osbaldo Garcia [facility] 11:23:00 [facility] EXTRA TUBE LAV 2023-04-26 [facility] xas 11:23:00 [facility] EXTRA TUBE LT. GREEN [facility]23[facility]04-26 [facility] 11:23:00 [facility] XR CHEST 1 VW 2023-04-26 [facility] 08:30:00 [facility] PHOSPHORUS 2023-04-26 [facility] 07:50:00 [facility] MAGNESIUM 2023-04-26 [facility] 07:50:00 [facility] BASIC METABOLIC PANEL (NA, K, 2023-04-26 Osbaldo Garcia, [facility] CL, CO2, GLUCOSE, BUN, 07:50:[address] [facility] ranch CREATININE, CA) CBC WITH DIFF 2023-04-26 [facility] 07:50:00 [facility] URINE DRUG (IMMUNOASSAY) - 2023-04-26 Eunice Greenwood [facility] COMPREHENSIVE DRUG SCREEN W/O 01:41:00 Me dical Branch REFLEX ELECTROENCEPHALOGRAM 2023-04-26 [facility] [facility] [address] HEAD WO CONTRAST 2023-04-[address] [facility] 23:51:39 [facility] URINALYSIS 2023-04-25 [facility] 23:30[facility]00 [facility] AMMONIA, PLASMA 2023-04-25 [facility] 23:00:00 Medical Branch COMP. METABOLIC PANEL ([id number]) 2023-04-25 [facility] 23:00:00 Medical Branch CARBAMAZEPINE 2023-04-25 [facility] 23:00:00 Medical Branch VALPROIC ACID, FREE 2023-04-25 [facility] 23:00:00 [facility] Branch CBC WITH DIFF 2023-04-25 [facility] 23:00:00 Medical Branch SYPHILIS IGG/IGM 2023-04-25 Jeimy [facility] exas 23:00:00 Medical Branch HB ECG ROUTINE & RHYTHM STRIP 2023-04-25 [facility] 22:45:21 Medical Branch CONSENT/REFUSAL FOR DIAGNOSIS 2023-04-25 Doctor Unassigned, [facility] AND TREATMENT 22:25:29 [facility] ADMISSION 2023-04-25 Doctor Unassigned, [facility] 05:01:00 [facility] CARBAMAZEPINE 2023-04-15 Paul Ferrell [facility] 03:28:00 Medical Branch VALPROIC ACID, TOTAL 2023-04-15 Ghassan [facility] 03:28:00 Medical Branch MAGNESIUM 2023-04-15 [facility] 03:10:00 [facility] Branch COMP. METABOLIC PANEL ([id number]) 2023-04-15 Paul Ferrell [facility] [place] 03:10:00 [facility] CBC WITH DIFF 2023-04-15 Ghassan Paul [facility] [place] xa 03:10:00 Medical Branch XR CHEST 1 VW 2023-02-21 Maren Owens [facility] [place] xa 14:17:50 Medical Branch MAGNESIUM 2023-02-21 Maren Owens [facility] [place] xa 13:55:00 Medical Branch TROPONIN I 2023-02-21 Maren Owens [facility] [place] xa 13:55:00 Medical Branch COMP. METABOLIC PANEL ([id number]) 2023-02-21 [facility] 13:55:00 [facility] CBC WITH DIFF 2023-02-21 Maren Owens [facility] [place] xas 13:55:00 Medical Branch N-TERMINAL PRO-BNP 2023-02-21 Maren Owens [facility] 13:55:00 Medical Branch ASSIGNMENT OF BENEFITS 2022-11-27 [facility] 14:16:04 [facility] History of cholecystectomy Memor ial [place] Procedure<sup>1</sup> [facility] ermann Encounters Start End Encounter Admission Attending Care Care Encounter Source Date/Time Date/Time Type Type Clinicians Facility Department ID 2023-07-01 2023-07-01 [facility] [id number] Univers 00:00:00 00:00:00 [employer] [facility] [id number] ity of [place] [id number] Messi as MIRANDA?BLEA [id number] [address] OFFICE [facility] 2023-06-26 2023-06-26 [facility]on [facility] [id number] Univers 00:00:00 00:00:00 Nancy [employer] [id number] it y of [place] [id number] Messi as MIRANDA?BLEA [id number] [address] OFFICE [facility] 2023 2023 [facility]on [facility] [id number] Univers 00:00:00 00:00:00 [employer] [id number] it y of [place] [id number] Messi as MIRANDA?BLEA [id number] [address] OFFICE [facility] 2023-06-14 2023-06-14 Booker [facility] [id number] Univers 00:00:00 00:00:00 [employer] [facility] [id number] ity of [place] [id number] Messi as MIRANDA?BLEA [id number] [address] OFFICE [facility] 2023-05-29 2023-05-29 Outpatient R ZULLY [facility] [id number] Univers 13:00:00 13:51:40 NANCY [facility] 2023-05-29 2023-05-29 Office [facility] [id number] Univers 13:00:00 13:51:40 [facility] [id number] it y of [place] [id number] Messi as MIRANDA?BLEA [id number] [address] OFFICE [facility] 2023-05-28 2023-05-28 Outpatient JOHNY HAUSER [facility] [id number] Univers 08:20:00 08:20:00 JOHNY NEVILLE abby [facility] 2023-05-21 2023-05-21 Outpatient JOHNY HAUSER [facility] [id number] Univers 14:00:00 14:00:00 JOHNY NEVILLE [facility] 2023-05-21 2023-05-21 [facility]phone [facility] [id number] Univers 00:00:00 00:00:00 [facility] [id number] ity vick [place] [id number] Messi as MIRANDA?BLEA [id number] [address] OFFICE [facility] 2023-05-20 2023-05-20 Outpatient GC_BAHC_Zel PRIV PRIV [id number] [facility] 00:00:00 00:00:00 lner_K [id number] Medica l 2023-05-20 2023-05-20 Outpatient GC_BAHC_Zel PRIV PRIV [id number] [facility] 00:00:00 00:00:00 lner_K [id number] Medica l 2023-05-09 2023-05-09 Outpatient GC_BAHC_Zel PRIV PRIV [id number] [facility] 00:00:00 00:00:00 lner_K [id number] Medica l 2023-05-09 2023-05-09 Outpatient GC_BAHC_Zel PRIV PRIV [id number] [facility] 00:00:00 00:00:00 lner_K [id number] Medica l 2023-05-09 2023-05-09 Outpatient GC_BAHC_Zel PRIV PRIV [id number] [facility] 00:00:00 00:00:00 lner_K [id number] Medica l 2023-05-09 2023-05-09 Outpatient GC_BAHC_Zel PRIV PRIV [id number] [facility] 00:00:00 00:00:00 lner_K [id number] Medica l 2023-05-08 2023-05-08 Transition HernandezKASANDRA salesPaty 1.2.840.114 [id number] Univers 00:00:00 00:00:00 of Care Brianda MARC 350.1.13.10 it y of [place] 4.2.7.2.686 Jhonny ospina [id number] [facility] [address] 2023-05-05 2023-05-06 [facility] Ryan Boone 1.2.840. 114 [id number] Univers 22:03:00 12:32:00 Encounter Clifford Vasquez 350.1.13.1 0 ity of [facility] 4.2. 7.2.686 [place] [phone] [facility] [address] 2023-05-05 2023-05-06 Outpatient X IRA LOPEZ [facility] ALEXX [id number] Univers 22:03:00 12:32:00 IRA LOPEZ [facility] 2023-04-25 2023-05-05 Inpatient X IRA LOPEZ [facility] [id number] Univers 17:30:00 18:30:00 IRA LOPEZ [facility] 2023-04-25 2023-05-05 [facility] Eunice Greenwood 1.2.84 0.114 [id number] Univers 17:30:00 18:30:00 Encounter Amena Murphy 350.1.13.10 ity of [facility] 4.2.7.2.686 [facility] [id number] [place] [id number] [place] 2023-05-02 2023-05-02 Booker Neville [facility] 1.2.840.114 [id number] Univers 00:00:00 00:00:00 [facility] 350.1.13.10 ity of [place] 4.2.7.2.686 Messi as MIRANDA?BLEA [id number] [address] OFFICE [facility] 2023-04-21 2023-04-21 [facility] 1.2.840.114 [id number] Univers 00:00:00 00:00:00 [facility] 350.1.13.10 ity of [place] 4.2.7.2.686 Messi as MIRANDA?BLEA [id number] [address] 2023-04-14 2023-04-15 Emergency X JUDIT [facility] ERT [id number] Univers 21:46:00 02:01:00 AMENA abby [facility] 2023-04-14 2023-04-15 Emergency Paul Ferrell [facility] 1.2.840. 114 [id number] Univers 21:46:00 02:01:00 Amena Murphy S [place] 350.1.13.10 ity of [place] [id number] [address] 2023-03-29 2023-03-29 [facility] 1.2.840.114 [id number] Univers 00:00:00 00:00:00 [facility] 350.1.13.10 ity of [place] 4.2.7.2.686 Messi as MIRANDA?BLEA [phone] [address] OFFICE [facility] 2023-03-06 2023-03-06 Outpatient R ZULLY [facility] [id number] Univers 11:30:00 11:39:57 [facility] 2023-03-06 [facility] 1.2.840.114 [id number] Univers 11:30:00 11:39:57 Visit [facility] 350.1.13.10 it y of [place] 4.2.7.2.686 Messi as MIRANDA?BLEA [id number] [address] OFFICE [facility] 2023-02-21 2023-02-21 Emergency X Maren OWENS [facility] ERT [id number] Univers 08:46:00 12:16:00 ity of [facility] 2023-02-21 2023-02-21 Emergency Maren Owens [facility] 1.2.840.114 [id number] Univers 08:46:00 12:16:00 Altagracia BRICE 350.1.13.10 i ty of [place] [id number] [address] 2023-02-13 2023-02-13 [facility] 1.2.840.114 [id number] Univers 00:00:00 00:00:00 [facility] 350.1.13.10 ity of [facility] 4.2.7.2.686 Messi as MIRANDA?BLEA [phone] [address] OFFICE [facility] 2023-01-25 2023-01-25 Telephone [facility] 1.2.840.114 [id number] Univers 00:00:00 00:00:00 [facility] 350.1.13.10 ity of [facility] 4.2.7.2.686 Messi as MIRANDA?BLEA [id number] [address] 2022-12-12 2022-12-12 [facility] 1.2.840.114 [id number] Univers 00:00:00 00:00:00 [facility] 350.1.13.10 ity of [place] 4.2.7.2.686 Messi as MIRANDA?BLEA [id number] [address] 2022-12-05 2022-12-05 Telephone [facility] 1.2.840.114 [id number] Univers 00:00:00 00:00:00 [facility] 350.1.13.10 ity of [place] 4.2.7.2.686 Messi as MIRANDA?BLEA [id number] [address] OFFICE [facility] 2022-11-27 2022-11-27 [employer] [facility], Ang - Db [facility] 1.2.840.1 14 [id number] Univers 09:00:00 09:15:00 Visit Johny Neville [facility] 350.1.13. 10 ity of [facility] 4.2.7.2.686 Messi as MIRANDA?BLEA [phone] Ia manuelito JJ 353 [facility] 2022-11-27 2022-11-27 Outpatient R JOHNY NEVILLE [facility] [id number] Univers 08:00:00 08:51:04 JOHNY NEVILLE ity of [facility] 2022-11-27 2022-11-27 Office Jamin [facility] 1.2.840.114 [id number] Univers 08:00:00 08:51:04 Visit [facility] 350.1.13.10 ity of [facility] 4.2.7.2.686 Messi as MIRANDA?BLEA [phone] [address] 2022-11-27 2022-11-27 Orders Doctor MICHI 1.2.840.114 [id number] Univers 00:00:00 00:00:00 Only Unassigned, MIRTA 350.1.13.10 ity of [facility] 4.2.7.2.686 Messi as [id number] [address] 2022-11-24 2022-11-24 [facility] 1.2.840.114 [id number] Univers 00:00:00 00:00:00 [facility] 350.1.13.10 ity of [facility] 4.2.7.2.686 Messi as MIRANDA?BLEA [id number] [facility] [address] 2022-11-24 2022-11-24 Refbrenton GilocheTSAILE [facility]ALTH [facility] 1.2.840.114 [id number] Univers 00:00:00 00:00:00 [facility] 350.1.13.10 ity of [facility] 4.2.7.2.686 Messi as MIRANDA?BLEA [phone] [facility] [address] 2022-11-24 2022-11-24 [facility] 1.2.840.114 [id number] Univers 00:00:00 00:00:00 [facility] 350.1.13.10 ity of [place] 4.2.7.2.686 Messi as MIRANDA?BLEA [id number] [address] 2022-10-08 2022-10-08 [facility] 1.2.840.114 [id number] Univers 00:00:00 00:00:00 [facility] 350.1.13.10 ity of [place] 4.2.7.2.686 Messi as MIRANDA?BLEA [phone] [address] 2022-09-25 2022-09-25 Telephone [facility] 1.2.840.114 [id number] Univers 00:00:00 00:00:00 [facility] 350.1.13.10 ity of [place] 4.2.7.2.686 Messi as MIRANDA?BLEA [id number] [address] 2022-09-25 2022-09-25 [facility] 1.2.840.114 [id number] Univers 00:00:00 00:00:00 [facility] 350.1.13.10 ity of [place] 4.2.7.2.686 Messi as MIRANDA?BLEA [phone] [address] 2022-09-25 2022-09-25 Telephone [facility] 1.2.840.114 [id number] Univers 00:00:00 00:00:00 [facility] 350.1.13.10 ity of [place] 4.2.7.2.686 Messi as MIRANDA?BLEA [id number] [address] 2022-08-28 2022-08-28 [facility] 1.2.840.114 [id number] Univers 00:00:00 00:00:00 [facility] 350.1.13.10 ity of [place] 4.2.7.2.686 Messi as MIRANDA?BLEA [phone] [address] OFFICE [facility] 2022-08-22 2022-08-22 Refbrenton Neville[facility]SAILE [facility] 1.2.840.114 [id number] Univers 00:00:00 00:00:00 [facility] 350.1.13.10 ity of [place] 4.2.7.2.686 Messi as MIRANDA?BLEA [phone] [address] OFFICE [facility] 2022-06-25 2022-06-25 [facility] 1.2.840.114 [id number] Univers 00:00:00 00:00:00 [facility] 350.1.13.10 ity of [place] 4.2.7.2.686 Messi as MIRANDA?BLEA [id number] [address] 2022-06-18 2022-06-18 [facility] 1.2.840.114 [id number] Univers 00:00:00 00:00:00 [facility] 350.1.13.10 ity of [place] 4.2.7.2.686 Messi as MIRANDA?BLEA [id number] [address] 2022-06-15 2022-06-15 Outpatient AMBREEN[facility] 861 [place] 00:00:00 00:00:00 AIMEE 0728 da [facility] Outre h Program 2022-05-26 2022-05-26 Outpatient JOHNY HAUSER [facility] [id number] Univers 10:40:00 13:19:01 JOHNY NEVILLE itabby [facility] 2022-05-26 2022-05-26 Office Jamin [facility] 1.2.840.114 [id number] Univers 10:40:00 13:19:01 Visit [facility] 350.1.13.10 ity of [facility] 4.2.7.2.686 Messi as MIRANDA?BLEA [id number] [address] 2022-05-26 2022-05-26 Outpatient R JOHNY NEVILLE [facility] [id number] Univers 10:40:00 13:19:01 JOHNY NEVILLE itabby [facility] 2022-05-26 2022-05-26 [employer]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 10 ity of [place] 4.2.7.2.686 Messi as MIRANDA?BLEA [phone] [facility] 353 [facility] 2022-05-25 2022-05-25 [facility] 1.2.840.114 [id number] Univers 00:00:00 00:00:00 [facility] 350.1.13.10 ity of [place] 4.2.7.2.686 Messi as MIRANDA?BLEA [id number] [facility] PAR[place] [address] [place] [address] 2022-05-24 2022-05-24 Refill Jamin, [facility] 1.2.840.114 [id number] Univers 00:00:00 00:00:00 [facility] 350.1.13.10 ity of [place] 4.2.7.2.686 Messi as MIRANDA?BLEA [id number] [facility] [address] [place] [address] 2022-05-23 2022-05-23 [facility] 1.2.840.114 [id number] Univers 00:00:00 00:00:00 [facility] 350.1.13.10 ity of [place] 4.2.7.2.686 Messi as MIRANDA?BLEA [id number] [address] 2022-05-08 2022-05-08 [facility]phone [facility] 1.2.840.114 [id number] Univers 00:00:00 00:00:00 [facility] 350.1.13.10 ity of [place] 4.2.7.2.686 Messi as MIRANDA?BLEA [id number] [address] 2022-05-08 2022-05-08 [facility] 1.2.840.114 [id number] Univers 00:00:00 00:00:00 [facility] 350.1.13.10 ity of [place] 4.2.7.2.686 Messi as MIRANDA?BLEA [id number] [address] 2022-05-08 2022-05-08 [facility] 1.2.840.114 [id number] Univers 00:00:00 00:00:00 [facility] 350.1.13.10 ity of [place] 4.2.7.2.686 Messi as MIRANDA?BLEA [id number] [address] 2022-04-25 2022-04-25 [facility] 1.2.840.114 [id number] Univers 00:00:00 00:00:00 [facility] 350.1.13.10 ity of [place] 4.2.7.2.686 Messi as MIRANDA?BLEA [id number] [address] 2022-04-21 2022-04-21 [facility] 1.2.840.114 [id number] Univers 00:00:00 00:00:00 [facility] 350.1.13.10 ity of [place] 4.2.7.2.686 Messi as MIRANDA?BLEA [id number] [address] 2022-04-10 2022-04-10 [facility] 1.2.840.114 [id number] Univers 00:00:00 00:00:00 [facility] 350.1.13.10 ity of [place] 4.2.7.2.686 Messi as MIRANDA?BLEA [id number] [address] 2022-04-06 2022-04-06 CAV Nilsa 2.16.840. 2.16.840.1. CLAC XJJJ2S Devoted 13:30:00 15:00:00 Teodoro 1.760214. 250636.4.6. [facility] [id number] [id number] 2022-04-05 2022-04-05 Outpatient Williams_V DMG DMG 1127 12:22:00 12:22:00 [id number] Medica l Group 2022-03-31 2022-03-31 [facility] 1.2.840.114 [id number] Univers 00:00:00 00:00:00 [facility] 350.1.13.10 ity of [place] 4.2.7.2.686 Messi as MIRANDA?BLEA [id number] [address] 2022-03-31 2022-03-31 [facility] 1.2.840.114 [id number] 621 Univers 00:00:00 00:00:00 [facility] 350.1.13.10 ity of [place] 4.2.7.2.686 Messi as MIRANDA?BLEA [id number] [address] 2022-03-31 2022-03-31 [facility] 1.2.840.114 [id number] Univers 00:00:00 00:00:00 [facility] 350.1.13.10 ity of [place] 4.2.7.2.686 Messi as MIRANDA?BLEA [phone] [address] 2022-03-29 2022-03-29 [facility] 1.2.840.114 [id number] Univers 00:00:00 00:00:00 [facility] 350.1.13.10 ity of [place] 4.2.7.2.686 Messi as MIRANDA?BLEA [id number] [address] 2022-03-28 2022-03-28 [facility] 1.2.840.114 [id number] Univers 00:00:00 00:00:00 [facility] 350.1.13.10 ity of [place] 4.2.7.2.686 Messi as MIRANDA?BLEA [id number] [facility] [address] 2022-03-26 2022-03-26 [facility] 1.2.840.114 [id number] 039 Univers 00:00:00 00:00:00 [facility] 350.1.13.10 ity of [place] 4.2.7.2.686 Messi as MIRANDA?BLEA [id number] [address] 2022-03-25 2022-03-25 [facility] 1.2.840.114 [id number] Univers 00:00:00 00:00:00 [facility] 350.1.13.10 ity of [place] 4.2.7.2.686 Messi as MIRANDA?BLEA [id number] [address] 2022-03-24 2022-03-24 Telephone [facility] 1.2.840.114 [id number] Univers 00:00:00 00:00:00 [facility] 350.1.13.10 ity of [place] 4.2.7.2.686 Messi as MIRANDA?BLEA [id number] [address] 2022-03-24 2022-03-24 Telephone [facility] 1.2.840.114 [id number] Univers 00:00:00 00:00:00 [facility] 350.1.13.10 ity of [place] 4.2.7.2.686 Messi as MIRANDA?BLEA [id number] [address] 2022-03-23 2022-03-23 [facility] 1.2.840.114 [id number] Univers 00:00:00 00:00:00 [facility] 350.1.13.10 ity of [place] 4.2.7.2.686 Messi as MIRANDA?BLEA [id number] [address] 2022-03-21 2022-03-21 Outpatient Williams_V DMG DMG 1127 Devoted 12:25:00 12:25:00 [id number] Medica l Group 2022-03-20 2022-03-20 Telephone [facility] 1.2.840.114 [id number] Univers 00:00:00 00:00:00 [facility] 350.1.13.10 ity of [place] 4.2.7.2.686 Messi as MIRANDA?BLEA [id number] [address] 2022-02-25 2022-02-25 [facility] 1.2.840.114 [id number] [id number] Univers 00:00:00 00:00:00 Johny [facility] 350.1.13.10 ity of [facility] 4.2.7.2.[place] [id number] [address] 2022-02-20 2022-02-20 Outpatient [facility] [id number] Devoted 09:01:00 09:01:00 86943 Medica l Group 2022-02-08 2022-02-08 [facility] 1.2.840.114 [id number] Univers 00:00:00 00:00:00 [facility] 350.1.13.10 ity of [facility] 4.2.7.2.686 Messi as MIRANDA?BLEA [id number] [address] 2022-01-26 2022-01-26 [facility] 1.2.840.114 [id number] 051 Univers 00:00:00 00:00:00 Johny [facility] 350.1.13.10 ity of [place] 4.[place].7.2.[place] [id number] Ia dic[address] 2022-01-26 2022-01-26 [facility] 1.2.840.114 [id number] 965 Univers 00:00:00 00:00:00 Johny [facility] 350.1.13.10 ity of [place] 4.[place].2.[place] [id number] [address] 2021-11-25 2021-11-25 [facility] 1.2.840.114 [id number] Univers 00:00:00 00:00:00 Johny NARVAEZ 350.1.13.10 ity of [facility] 4.2.7.2.[place] [id number] [address] 2021-11-22 2021-11-22 [facility] 1.2.840.114 [id number] [id number] Univers 00:00:00 00:00:00 Johny NARVAEZ 350.1.13.10 ity of [place] 4[place].2.[place] [id number] [address] 2021-11-14 2021-11-14 [facility] 1.2.840.114 09174 [id number] Univers 00:00:00 00:00:00 Johny Macario [facility] 350.1.13.10 ity of [place] 4.2.7.2.686 Messi as MIRANDA?BLEA [id number] [address] 2021-09-20 2021-09-20 [facility] 1.2.840.114 34184 [id number] Univers 00:00:00 00:00:00 Johny NARVAEZ 350.1.13.10 ity of [facility] 4.2.7.2.[place] [id number] [address] 2021-08-29 2021-08-29 [facility] 1.2.840.114 [id number] Univers 00:00:00 00:00:00 Johny Narvaez 350.1.13.10 ity of [place].2.[place] [id number] [address] 2021-08-19 2021-08-19 [facility] 1.2.840.114 [id number] Univers 00:00:00 00:00:00 Johny [place] 350.1.13.10 ity of [place].2.[place] [id number] Ia dical nal 092 [facility] 2021-06-28 2021-06-28 Outpatient JOHNY HAUSER [facility] [id number] Univers 16:20:00 16:20:00 JOHNY NEVILLE [facility] 2021-05-25 2021-05-25 Refill Jamin [facility] 1.2.840.114 [id number] Univers 00:00:00 00:00:00 Johny Narvaez 350.1.13.10 ity of [place].2.[place] [phone] Ia dicri nal [address] [place] [address] 2021-05-20 2021-05-20 Office Jamin [facility] 1.2.840.114 [id number] Univers 15:01:59 16:19:48 Visit Johny Narvaez 350.1.13.10 ity [facility] 4.2.7.2.[place] [id number] Ia dicri nal [address] [place] [address] 2021-05-20 2021-05-20 Outpatient JOHNY HAUSER [facility] [id number] Univers 15:00:00 15:00:00 JOHNY NEVILLE [facility] 2017-10-21 2017-10-21 Emergency [facility] [id number] Memoria 14:04:00 17:28:00 r Asael 00 [facility] 2017-10-21 2017-10-21 Emergency [facility] [id number] Memoria 14:04:00 17:28:00 evens Vyas 00 [facility] 2017-10-21 2017-10-21 Outpatient EDVIN Salinas [facility] [id number] 08:04:00 11:28:00 Amada 00 Results Test Description Test Time Test Comments Results Result Comments Source POCT GLUCOSE (AUTOMATED) 2023-05-06 16:46:46 Test Item Value Reference Range Interpretation Comme nts POCT GLU (test code = 3601235451) 155 mg/dL 70-110 H Lab Interpretation (test code = 98774-3) Abnormal [facility] [id number] 14:50:33 Test Item Value Reference Range Interpretation Comments CK (test code = 7898339173) 70 U/L 33-194 Lab Interpretation (test code = Normal 18348-3) [facility]2023-05-06 13:01:04 Test Item Value Reference Range Interpretation Comments POCT GLU (test code = 2552505708) 98 mg/dL 70-110 Lab Interpretation (test code = Normal 94449-5) [facility] ChildrenVALPROIC ACID, [id number] 05:01:38 Test Item Value Reference Range Interpretation Comments Valproic Acid, Free 15.8 ug/mL 4.0-15.0 H (test code = 9037483586) LORE (test code = LORE) Toxic Range: ? Greater than 15 ug/mL Test developed and characteristics determined by [facility] Laboratory Services. Lab Interpretation Abnormal (test code = 18399-6) [facility] ChildrenCB WITH [id number] 04:23:44 Test Item Value Reference Range Interpretation Comments WBC (test code = 6.24 See_Comment [Automated 6690-2) message] The sy stem which generated this result transmitted reference range : 4.20 - 10.70 10*3/?L. The reference range was not used to interpret this result as normal/abnormal . RBC (test code = 3.98 See_Comment L [Automated 699-8) message] The sy stem which generated this [...] RDW-SD (test code = 42.3 fL 38.5-51.6 84968-3) RDW-CV (test code = 13.0 % 12.1-15.4 788-0) PLT (test code = 174 See_Comment [Automated 777-3) message] The sy stem which generated this result transmitted reference range : 150 - 328 10*3/ ?L. The reference r robbie was not used to interpret this result as normal/abnormal . MPV (test code = 8.5 fL 9.8-13.0 L 63036-0) NRBC/100 WBC (test 0.0 See_Comment [Automat ed code = 9234565060) message] The system which generated this result transmitted reference range : 0.0 - 10.0 /100 WBCs. The refer ence range was not u sed to interpret th is result as normal/abnormal . NRBC x10^3 (test code See_Comment [Auto mated = 8956262118) message] The s ystem which generated this result transmitted reference range : 10*3/?L. The reference range was not used to interpret this result as normal/abnormal . GRAN MAT (NEUT) % 57.1 % (test code = 770-8) IMM GRAN % (test code 2.40 % = 5667936967) LYMPH % (test code = 30.0 % 736-9) MONO % (test code = 8.7 % 5905-5) EOS % (test code = 1.3 % 713-8) BASO % (test code = 0.5 % 706-2) GRAN MAT x10^3(ANC) 3.57 10*3/uL 1.99-6.95 (test code = 1479339859) IMM GRAN x10^3 (test 0.15 10*3/uL 0.00-0.06 H code = 0733719961) LYMPH x10^3 (test code 1.87 10*3/uL 1.09-3.23 = 731-0) MONO x10^3 (test code 0.54 10*3/uL 0.36-1.02 = 742-7) EOS x10^3 (test code = 0.08 10*3/uL 0.06-0.53 711-2) BASO x10^3 (test code 0.03 10*3/uL 0.01-0.09 = 704-7) Lab Interpretation Abnormal (test code = 72769-4) [facility] ChildrenCOMP. METABOLIC PANEL (02552)2023-05-06 04:08:41 Test Item Value Reference Range Interpretation Comments NA (test code = 132 mmol/L 135-145 L 8105686863) K (test code = 4.2 mmol/L 3.5-5.0 6667831965) CL (test code = 98 mmol/L 98-108 5136627697) CO2 TOTAL (test code = 27 mmol/L 23-31 6678876650) AGAP (test code = 7 2-16 8057968389) BUN (test code = 16 mg/dL 7-23 4084973530) GLUCOSE (test code = 104 mg/dL 70-110 9949427815) CREATININE (test code = 0.68 mg/dL 0.60-1.25 7952703307) TOTAL BILI (test code = 0.1 mg/dL 0.1-1.1 6987910042) CALCIUM (test code = 8.0 mg/dL 8.6-10.6 L 7807165013) T PROTEIN (test code = 5.9 g/dL 6.3-8.2 L 6736780001) ALBUMIN (test code = 3.3 g/dL 3.5-5.0 L 3756767578) ALK PHOS (test code = 81 U/L 34-122 7594360600) ALTv (test code = 15 U/L 5-50 1742-6) AST(SGOT) (test code = 21 U/L 13-40 2695425180) eGFR (test code = 121.5 mL/min/1.73m2 1731918909) LORE (test code = LORE) Association of [...] tests). Lab Interpretation Abnormal (test code = 39390-4) General acute hospital GLUCOSE (AUTOMATED)2023-05-06 03:10:28 Test Item Value Reference Range Interpretation Comments POCT GLU (test code = 7501321936) 96 mg/dL 70-110 Lab Interpretation (test code = Normal 79680-6) General acute hospital GLUCOSE (AUTOMATED)2023-05-05 22:01:14 Test Item Value Reference Range Interpretation Comments POCT GLU (test code = 1711199858) 159 mg/dL 70-110 H Lab Interpretation (test code = Abnormal 70763-3) General acute hospital GLUCOSE (AUTOMATED)2023-05-05 16:38:46 Test Item Value Reference Range Interpretation Comments POCT GLU (test code = 4171919876) 139 mg/dL 70-110 H Lab Interpretation (test code = Abnormal 60870-8) General acute hospital GLUCOSE (AUTOMATED)2023-05-05 13:02:37 Test Item Value Reference Range Interpretation Comments POCT GLU (test code = 3679806650) 118 mg/dL 70-110 H Lab Interpretation (test code = Abnormal 86746-5) General acute hospital GLUCOSE (AUTOMATED)2023-05-05 01:26:36 Test Item Value Reference Range Interpretation Comments POCT GLU (test code = 9053254143) 128 mg/dL 70-110 H Lab Interpretation (test code = Abnormal 34300-5) General acute hospital GLUCOSE (AUTOMATED)2023-05-04 22:15:22 Test Item Value Reference Range Interpretation Comments POCT GLU (test code = 6210505439) 120 mg/dL 70-110 H Lab Interpretation (test code = Abnormal 10416-5) General acute hospital GLUCOSE (AUTOMATED)2023-05-04 16:33:34 Test Item Value Reference Range Interpretation Comments POCT GLU (test code = 4732978452) 170 mg/dL 70-110 H Lab Interpretation (test code = Abnormal 66476-7) General acute hospital GLUCOSE (AUTOMATED)2023-05-04 13:09:51 Test Item Value Reference Range Interpretation Comments POCT GLU (test code = 6523585619) 98 mg/dL 70-110 Lab Interpretation (test code = Normal 34910-6) General acute hospital GLUCOSE (AUTOMATED)2023-05-04 01:06:07 Test Item Value Reference Range Interpretation Comments POCT GLU (test code = 3687572263) 138 mg/dL 70-110 H Lab Interpretation (test code = Abnormal 53663-5) General acute hospital GLUCOSE (AUTOMATED)2023-05-03 21:30:36 Test Item Value Reference Range Interpretation Comments POCT GLU (test code = 6651229003) 106 mg/dL 70-110 Lab Interpretation (test code = Normal 85116-6) General acute hospital GLUCOSE (AUTOMATED)2023-05-03 16:50:22 Test Item Value Reference Range Interpretation Comments POCT GLU (test code = 3810221417) 233 mg/dL 70-110 H Lab Interpretation (test code = Abnormal 90864-8) General acute hospital GLUCOSE (AUTOMATED)2023-05-03 12:53:56 Test Item Value Reference Range Interpretation Comments POCT GLU (test code = 0140981476) 112 mg/dL 70-110 H Lab Interpretation (test code = Abnormal 42468-8) [facility]. Sendout- [facility] [id number] Autoimmune encephalitis [id number] 12:32:15 Test Item Value Reference Range Interpretation Comments Miscellaneous Test (test See scanned report code = 0814967794) Performing Lab (test code ARUP = 2196822665) General acute hospital GLUCOSE (AUTOMATED)2023-05-03 01:56:10 Test Item Value Reference Range Interpretation Comments POCT GLU (test code = 146 mg/dL 70-110 H Notifi ed Provider [id number]) Lab Interpretation (test Abnormal code = 45290-6) General acute hospital GLUCOSE (AUTOMATED)2023-05-02 22:05:34 Test Item Value Reference Range Interpretation Comments POCT GLU (test code = 0221239895) 118 mg/dL 70-110 H Lab Interpretation (test code = Abnormal 81453-2) General acute hospital GLUCOSE (AUTOMATED)2023-05-02 17:01:26 Test Item Value Reference Range Interpretation Comments POCT GLU (test code = 1214599127) 144 mg/dL 70-110 H Lab Interpretation (test code = Abnormal 37425-2) [facility] SPINAL [id number] 16:54:54 Test Item Value Reference Range Interpretation Comments Case Report (test code = Non-Gynecologic 8346547108) Cytology ?Case: [id number] ?Authorizing Provider: ?Jesús Coulter MD ?Collected: ? 04/28/2023 1330 ?Ordering Location: ? ? Neurology/Neurologica l ? ? Received: ?04/30/2023 0913 ? Surgery (PRAVEENA 11B) ?Pathologist: ? Alma Alvarenga MD ? Specimen: ? ?LUMBAR PUNCTURE, CSF ? Final Diagnosis (test k3tngIOiRUSnv5tkTOVli code = 3120316309) GFuZzEwMzNcZnRuYmpcdW MxIHtccnRmMVxlcGljMTA aSDgaPQ3ieSztpYy9lFxr FIUkezH2hDRtSIveg5pkG WN2a1qxanteSPXjMXhwWc 9udHRibHtcZjAgQXJpYWw 6mP54LDOswN5deCAxNQvn gpBnREkgwtXlwxTtLew5L TX9kLmdVJRkeggfGwA7VO coYQInidzvEVz1POpzPGW mcSA9JFQxeNHkW8PvTVZe YV9zctv4RJF0YSumHSJnF mC1JIUiySWeZIYywKtcKH dpz998RJL8GwEuUXEskjY kcIaifH4kCrjbudQwENMk MVxwYXJccmkxIEEuIENFU gZKFd2AVOqLZDwrKetCWB D3UXEteyFqKDNfROVLAKt ECVgFUWNXV6ZiPWWYLInH AK7VFSTJJOlNGWPzKDChV 3VWBZQBWU1UBkYiOKHcnm uiRKM0m2kxyDWmLAWkuVY jMgTcOGLmREDze4njBMNt bGFuZzEwMzNcZnRuYmpcd ZYlUEJkUcOsv3kuf508aO Aiq0sdAVFaIfN3oJTiLJQ xcEbafqh1xUudKfStZNGp t5bnlhGiOcIuRJUmKNQgD ZHlwJTjS685NOYjJJtak3 upe8TlKKTarXHcx7E9TKF HCGpmMhXcP776v0qjj0tb grDruNC9RKOpFNY4MSwjc iDrjpK5OAxmoUSnQoW3CV tccmVkMFxncmVlbjBcYmx 7CGMiI116PKL8rDeln9pk UUD9SGRbVWHkEohtWn1yu VJzF358QMUkCPISLEBbyH d1AAUqyjEpdrLmiAYNi84 8A901p1fpLIVtwfEstKqN vyluq5ybQ479OBOhlGKas hAwPjDhDPWklVNjdUY9NG ThFI4tfpiuQKjwQMbkZML ligI1PQSqoLIpB9YvIIYq VP6yxcjkLLR4EYwdUGOeD UC9WoRsVCArs4Criyn2Do Uffk0cde37IXK0o8JjrUu lDQR4UDO0KvTfYw2xsWVf XSJiPM0vJzMqdGLfVRNbq c91hWumIKdiiyQkiP4bYp YsJRIwwMOdHAXcZP0zvHV kHFUkwC3ptimeZDAeTfNd tnlvLLKwsPqmgyGpLm2uh ZsyGVA4RCavU6ceoG1mAg E6VDmkM5cyaM8tVMv9WAe meYL5LHHhgZ3vTR9ipqcz m3knTPnjTAjoKTUywgQ5l jS2FKXhoJVyA0XfmH5qCN BsXM9gyvcmb2zyLHN3OHs zKHTtBIZ9BfTvCTVyh9Sb lqd4RdQyx8HdhKFuIPrhJ 64wo683WWEuykLuJ2lyfQ FpblxwbGFpblxmMFxmczI 0XHFsXHBsYWluXGYxXGZz MjBcbGFuZzEwMzNcaGlja FxmMVxkYmNoXGYxXGxvY2 zfLjEeC1UgCODbAyDhaAN xQYfsjXI7JKWxRVPnq76z qLg0CSWslzuxm7YbUCIzl XNkxTIhcV9ihlHmo7njRN AmCKHbNUIuC1DeTNF3kRL iUUIruMVetNQ4SN0ugfTs HF4vVWPxGwdchdOmeMAwe uFnRQRpWVpqr7ibGC4xDL SupRqhdX2dqZH9KAFel5n yyHMpgEUse5yfk0RwvvEr ZShzKSBtYXkgYXBwZWFyI G4rITDmdDFtjaLma9U4Fb gaiUFhpicfZcrddjA4AZi ezsnxXJGfXMmhD2vdRsCw UPVejAhcRnerr5AaPYLrV GZzMjhccGFyfX0= Final Diagnosis Comment j5hhoTCnROGrdDSwBZSzP (test code = 4961637154) 6coxzFbGEOqtWQmW6Sopv qoSCtsOG5kGM2qbXxrnOP ceUSbTUXcQfHbn3bka801 bBAtg2jvOMBEnfvuyFv9g VsuB60uu5W3NmccN52tzT XwGMC2OSQdGAFxqSHfEKA yCLM0WOLpiZFgB1sqSXVk WY5izehnMWcuHSyzPOEof NI9NJNkhUYxJ0FwCJGlSI hzTYQskba0SsPgKs6ctAH yeTcyMFxwYXJkXHBsYWlu PSChTvJkD64jJLDgSCKyt 7iglLjmfVukL6n1HCDlCN 4wjv7uwGKksyWgbkOaJBR vQ7cslj31ghEyl6QwtrOi LWYyl88lHYZgmJhsZiUSc sKjTSsmE82jhkCvA0RtqP HdWJRsUWGrNA4nHENkzxh wYXJ9 Clinical Information AMS and seizures (test code = 4851326521) Gross Description (test a2vweZXqYLTinGBoNRNpZ code = 1275472841) 8rceoBhOBYcaGYtS6Sxga syYIngZQ9jZT7goDvjgBR xeGFnYYQbHvPpo0gpy712 hWRtn8oxFBQRilwkzCy2c LlgT02bb0Y5VgnqV8ckAT QwXGdyZWVuMFxibHVlMDt 9XHBhcGVydzEyMjQwXHBh uXMmeTR0KSTzEB4estxqJ VteIRooTCLetxQ1UVRxpY UmC8SwVACmAI3cbhmeXEO 2FBqlRLZnPHB9SyJkCTEu n4Zzvia1IuB8LUxdSZNtN 7SmE3OgNTznKRY8COWtVZ IyKRJyDG8XCqOvOGp3TcJ yMTgiIFJFUSAzNzkyNTkz LRQWNLJuSFRkCsSoLpt4Q CIgTFJSIDgwMDAwMDAwMD EgXFxuaCBcXHQgMSBcXGZ nBYsdqfM3g6agQFZvgDXt MZO9PNqgoHFoRLZsGRBfL YqfBuECLlWbXlR3AyC4Di Z8FqM2MNx7WOMMOuLjCpI bYeD9KiQ5TTKfLGo9OCk0 LXeBIeRgKCR6SGSzBjppU SV2HBf5UKuhrGPwMJmzf2 RbPoGlQCFkTWletxS3VAP adkPkbTeiqJ7tBoJdAQbs YXJccGFyZFxzYjMwXGVwa PLBi7AyYDvksRVwryirWd FccGFyXHBhcmRccmkxIEE wOrSlZ7VBZQMFL0YPAH2L TCBGTFVJRFxwYXIgUmVjZ Nm3EHXrIcMfy6ipbCVvFt KhVjblUZ5tSYRxNTCaIOD asVrwFDbtXRBpb0MvHAks cGljWHNhMzAgUHJlcGFyZ HXbZfEeqNbpFTVcCPQ6nD 9tfVowZFKjZHVpcwP6uZ6 alofuBGOMp65lxc51e2q1 IGFuZCAxIFBhcGFuaWNvb GFvdSBzdGFpbmVkKXtcZX EaM7MkM9JmzdE9j9lkqKq uz7WprZZmJC3agBUzqC== Disclaimer (test code = w4notFNpPIHgb6utODQre 9889383087) GFuZzEwMzNcZnRuYmpcdW XdKOuryqBaPXtdo4TjX1U yMjAwMFxhbnNpXGRlZmxh tdwuZQWzNHA7bxXjFAVbG KguHJIpZXebBc3ycJOmuB ezVoUkAZKgq8qwkvTJSUz tZeClO621QSLqDNhsv0fb m9PpBEDzdWTmo2E7NENVb kysgUd7bLngG89ev4P2Xy fbR2xhPLRhROImS0MzEF5 iCZYpRbl2RXG7VWT1NXPm WTRlG0DxSK2iUYLgnVZvU Hu2z7rclRynCEEnOTK4p8 ggFEicxxEvPZ1hbl3rnIz 7i2hhwsNfJOLyEJLasPEF BGDiN0AbtZsjWo9okCl5g GasRoiiRDR5Hhm8YJ5rmi 29xya8cBeiKYApkbpoOlV 5BZypSRDihsdaSQz3UZgl ENSyoKR8CUKyrUMyE5AiO ACvSX5cikn6PKG0XQzsDC SdOcT1NXIgvYBlLWHmsYa aTZnhd315SNF4DrWyHL1y G4Frq0Q9aJ6waPWiSTVbl INuCbMkJKSjwc6hnNCcRL sro5ZuUKW1ddV4hODfhAD pIZVzTK68Hlmia9AySkxa y3YgJ23ocRK8VYevt5gbQ O7kGyE2nvWzLLpvq9bpvI 2bErX7OChaUK5sYC9xSLX ebH3ciitrVCQxYlTmluey JTIzgRtwcdTfTm0auPxgZ NH2WQakK9xzvG8cNeH1ZJ hcQ7rnzY5eWIx1LQqpuKX 6PXZvyE7lYF4txxcub9ng LGgiMXsvKGDzwsN8siM8X JJsjDMaX3RwwF6vBCJeDB 0vthuvl0taPPB2IBpxROT uEPA5JnIxEZQrl6Yxxrz9 YbYrq7DvkJRwQCptX10ff 847GZGvchEvO5krlVPydg nhiIZosnrqKHkfcpF5GHB dpeGyz1RhHTFsUUK5TZyj TMtznCLsOESkwBdej1sjB 3RscGFyXHBsYWluXGYxXG ZzMjBcbGFuZzEwMzNcaGl jaFxmMVxkYmNoXGYxXGxv Y0sqRxPxB5YcFAFrUmTpy SCoD4fsWFelyrSwNCXnsn KozCV3SHyzY4f5UIFzvhJ bcVk8yrZxXeEwMORzGBL7 NSvogZUdTBCkp7Xlcdzpl CWaEg4alLThOTRbcU1vQB CzTKZgXDhnXS5ekCi5NGZ AjVRikPPsKkKIOXGsNH47 iuPzBBMPnhbdk7P8VTuqN DAvt4QofHAlB2zch7VcRS Eyr85vMF7uz9K7d5dmRQM 8CH5md1MaAYWpzYKwoYGx KYYtf2Arpfcwd7WiRTRmp zQst8YpKEBxopTdeTCiRJ ZjluOqcp2nhcLcYXYiWDS jF3QoyeopmKqbvlCkXDGd qb3ghyTqYUB0ECWPYJKpF QWjm3QqxO5mrJBYDZN6qO Ymdk5uamDWrCYpHYHrtk1 8FADqPL4eV6noBHNzSHJd niLhjORvz3OgOOBlyMQ7c DQfCZ7UPrKWg48tZRFaYA BKblJwIQUuwZvcnOF8rzY 1sC6hLZfIDXJxNwq+IFRo NCHPDLPiKR3esoWkp8Cxc rTffKxvGQLvfHNbt4ZvoZ Uep6PhzEwhp5HhkABdyBJ sWO6jKPUkueqlRIQpYUWA AyLXMHKddiF6d5YlMXBoY EVeOAH7oFzabbb4CSIjuS 1bVWXkN5fqjvjrYMsnKDE eh3UobG9vkFMCdCPaa2Xx qACdmVUHhKCgPV5elgCoJ YcYCSzWTJE7dnIaEUZsl8 YbWBsqP3mzW31yzXsuaXk 5xPZ8WMB1cP1kByo+IFxw YXJccGFyIEFwcHJvcHJpY OYywObceiLnN3QraqSujM 8ahLVacwNvBX3gJQ9pS7X 1hYElQJUlcxMuv2ltAVzj dmUgYmVlbiByZXZpZXdlZ HAon0NjFPcyGIC1TBephm BpbmNsdWRpbmcgSCZFLCB WvQZodZVfZNL0IYhcxaLs tpSkUC9ctC1quYtluP1md VPfmLW2znmjMQVnDXDawO nkNKSeJI7iwYLcKWNpytI IwEejaBUtpB7uD1QhQVGa NQHjaw6mTYMflF1pRXqpg 2VydmljZXMgYXJlIHBlcm Lyny4sWMMleGHGWG3UZTa wtDYyw1YppeLdR8gYRJI4 NUQwNjYwMjgxKSBleGNlc DKaUWAjpg66RHYdtM2wdK dqRLUczC4nfQ4csDkykP2 hBjUeJxOrLHipGL6aPJFo S4nkoQBqQTQlNSGdV3raV iLobJ6vkQjfGTgpJfFqGk YiZImuTEQ9zK== Embedded Images (test code = 3285729115) General acute hospital GLUCOSE (AUTOMATED)2023-05-02 13:40:25 Test Item Value Reference Range Interpretation Comments POCT GLU (test code = 4226649247) 112 mg/dL 70-110 H Lab Interpretation (test code = Abnormal 20930-7) [facility] METABOLIC PANEL (NA, K, CL, CO2, GLUCOSE, BUN, CREATININE, CA)2023-05-02 12:15:48 Test Item Value Reference Range Interpretation Comments NA (test code = 132 mmol/L 135-145 L 6003797767) K (test code = 3.2 mmol/L 3.5-5.0 L 6733348017) CL (test code = 100 mmol/L 98-108 6692554773) CO2 TOTAL (test code = 24 mmol/L 23-31 3792719882) AGAP (test code = 8 2-16 7960982176) BUN (test code = 12 mg/dL 7-23 2611577588) GLUCOSE (test code = 117 mg/dL 70-110 H 8306074478) CREATININE (test code = 0.77 mg/dL 0.60-1.25 8730048009) CALCIUM (test code = 7.6 mg/dL 8.6-10.6 L 3039758159) eGFR (test code = 105.3 mL/min/1.73m2 9238130583) LORE (test code = LORE) Association of [...] tests). Lab Interpretation Abnormal (test code = 12273-1) [facility]:15[facility]48 Test Item Value Reference Range Interpretation Comments MAGNESIUM (test code = 1423723704) 1.5 mg/dL 1.7-2.4 L Lab Interpretation (test code = Abnormal 31972-6) General acute hospital WITH [id number] 11:58:30 Test Item Value Reference Range Interpretation Comments WBC (test code = 5.30 See_Comment [Automated 6690-2) message] The sy stem which generated this result transmitted reference range : 4.20 - 10.70 10*3/?L. The reference range was not used to interpret this result as normal/abnormal . RBC (test code = 3.58 See_Comment L [Automated 789-8) message] The sy [...] RDW-SD (test code = 42.4 fL 38.5-51.6 90040-4) RDW-CV (test code = 13.2 % 12.1-15.4 788-0) PLT (test code = 136 See_Comment L [Automated 777-3) message] The sy stem which generated this result transmitted reference range : 150 - 328 10*3/ ?L. The reference r robbie was not used to interpret this result as normal/abnormal . MPV (test code = 9.0 fL 9.8-13.0 L 33950-2) NRBC/100 WBC (test 0.0 See_Comment [Automat ed code = 4888395363) message] The system which generated this result transmitted reference range : 0.0 - 10.0 /100 WBCs. The refer ence range was not u sed to interpret th is result as normal/abnormal . NRBC x10^3 (test code See_Comment [Auto mated = 4049467203) message] The s ystem which generated this result transmitted reference range : 10*3/?L. The reference range was not used to interpret this result as normal/abnormal . GRAN MAT (NEUT) % 41.5 % (test code = 770-8) IMM GRAN % (test code 0.90 % = 5637656492) LYMPH % (test code = 49.8 % 736-9) MONO % (test code = 5.5 % 5905-5) EOS % (test code = 1.9 % 713-8) BASO % (test code = 0.4 % 706-2) GRAN MAT x10^3(ANC) 2.20 10*3/uL 1.99-6.95 (test code = 7207637989) IMM GRAN x10^3 (test 0.05 10*3/uL 0.00-0.06 code = 9988240607) LYMPH x10^3 (test code 2.64 10*3/uL 1.09-3.23 = 731-0) MONO x10^3 (test code 0.29 10*3/uL 0.36-1.02 L = 742-7) EOS x10^3 (test code = 0.10 10*3/uL 0.06-0.53 711-2) BASO x10^3 (test code 0.01-0.09 = 704-7) Lab Interpretation Abnormal (test code = 72833-0) [facility] [id number] 11:02:06 Test Item Value Reference Range Interpretation Comments MYELIN-B PRO 4.03 ng/mL 0.00-5.50 INTERPRETIVE IN FORMATION: (test code = ?Myelin Basic P rotein This 2638-5) test was develo ped and its performance michi racteristics determined by [facility]. I t has not been cleared or approved by the [place] Food and Drug Administration. This test was performed i n a CLIA certified labor atory and is intended for cl inical purposes.Perfor med By: [address] [id number] Director: Angelo wilks MD, PhD General acute hospital GLUCOSE (AUTOMATED)2023-05-02 01:29:07 Test Item Value Reference Range Interpretation Comments POCT GLU (test code = 159 mg/dL 70-110 H Notifi ed Provider 6009980266) Lab Interpretation (test Abnormal code = 16618-6) General acute hospital GLUCOSE (AUTOMATED)2023-05-01 22:46:32 Test Item Value Reference Range Interpretation Comments POCT GLU (test code = 2335159124) 129 mg/dL 70-110 H Lab Interpretation (test code = Abnormal 80973-6) General acute hospital GLUCOSE (AUTOMATED)2023-05-01 17:26:24 Test Item Value Reference Range Interpretation Comments POCT GLU (test code = 4594010337) 115 mg/dL 70-110 H Lab Interpretation (test code = Abnormal 36999-1) General acute hospital GLUCOSE (AUTOMATED)2023-05-01 13:38:28 Test Item Value Reference Range Interpretation Comments POCT GLU (test code = 8320295858) 140 mg/dL 70-110 H Lab Interpretation (test code = Abnormal 62480-4) [facility] [id number] 12:42:24 Test Item Value Reference Range Interpretation Comments CSF CULTURE (test No organisms isolated code = 606-4) Gram stain (test code Moderate Mononuclear = 664-3) cells General acute hospital GLUCOSE (AUTOMATED)2023-05-01 01:10:10 Test Item Value Reference Range Interpretation Comments POCT GLU (test code = 7509439139) 89 mg/dL 70-110 Lab Interpretation (test code = Normal 35765-2) General acute hospital GLUCOSE (AUTOMATED)2023-04-30 21:43:07 Test Item Value Reference Range Interpretation Comments POCT GLU (test code = 7001379040) 134 mg/dL 70-110 H Lab Interpretation (test code = Abnormal 31808-5) General acute hospital GLUCOSE (AUTOMATED)2023-04-30 17:14:05 Test Item Value Reference Range Interpretation Comments POCT GLU (test code = 5888694117) 120 mg/dL 70-110 H Lab Interpretation (test code = Abnormal 14772-9) General acute hospital GLUCOSE (AUTOMATED)2023-04-30 12:51:17 Test Item Value Reference Range Interpretation Comments POCT GLU (test code = 7063123890) 95 mg/dL 70-110 Lab Interpretation (test code = Normal 46163-4) General acute hospital GLUCOSE (AUTOMATED)2023-04-30 01:36:39 Test Item Value Reference Range Interpretation Comments POCT GLU (test code = 1072063144) 116 mg/dL 70-110 H Lab Interpretation (test code = Abnormal 45549-5) General acute hospital GLUCOSE (AUTOMATED)2023-04-29 21:22:15 Test Item Value Reference Range Interpretation Comments POCT GLU (test code = 7351835205) 94 mg/dL 70-110 Lab Interpretation (test code = Normal 58960-3) General acute hospital GLUCOSE (AUTOMATED)2023-04-29 17:06:17 Test Item Value Reference Range Interpretation Comments POCT GLU (test code = 0710977867) 109 mg/dL 70-110 Lab Interpretation (test code = Normal 36911-1) General acute hospital GLUCOSE (AUTOMATED)2023-04-29 12:57:22 Test Item Value Reference Range Interpretation Comments POCT GLU (test code = 0090166507) 96 mg/dL 70-110 Lab Interpretation (test code = Normal 07276-5) General acute hospital GLUCOSE (AUTOMATED)2023-04-29 01:54:27 Test Item Value Reference Range Interpretation Comments POCT GLU (test code = 8579168595) 113 mg/dL 70-110 H Lab Interpretation (test code = Abnormal 78464-2) General acute hospital GLUCOSE (AUTOMATED)2023-04-28 21:52:58 Test Item Value Reference Range Interpretation Comments POCT GLU (test code = 7931786104) 96 mg/dL 70-110 Lab Interpretation (test code = Normal 10832-9) [facility]ING[facility]/ENCEPHALITIS PANEL BY [id number] 20:31:03 Test Item Value Reference Range Interpretation Comments Escherichia coli K1 Negative Negative, (test code = 21882-1) Indeterminate, See Comment Haemophilus influenzae Negative Negative, (test code = 76099-8) Indeterminate, See Comment Listeria monocytogenes Negative Negative, (test code = 97617-5) Indeterminate, See Comment Neisseria meningitidis Negative Negative, (encapsulated) (test Indeterminate, code = 20557-5) See Comment Streptococcus agalactiae Negative Negative, (test code = 68313-2) Indeterminate, See Comment Streptococcus pneumoniae Negative Negative, (test code = 59896-0) Indeterminate, See Comment Cytomegalovirus (test Negative Negative, code = 73333-6) Indeterminate, See Comment Enterovirus (test code = Negative Negative, 63899-7) Indeterminate, See Comment Herpes simplex virus 1 Negative Negative, (test code = 77652-6) Indeterminate, See Comment Herpes simplex virus 2 Negative Negative, (test code = 31193-2) Indeterminate, See Comment Human herpesvirus 6 Negative Negative, (test code = 92643-2) Indeterminate, See Comment Human parechovirus (test Negative Negative, code = 86229-3) Indeterminate, See Comment Varicella zoster virus Negative Negative, (test code = 00302-9) Indeterminate, See Comment Cryptococcus Negative Negative, neoformans/gattii (test Indeterminate, code = 92930-4) See Comment LORE (test code = LORE) Negative:A negative result does not rule-out infection. ?This assay does not test for all potential infectious agents. Positive:A positive test result does not necessarily indicate the presence of viable organism. ? Lab Interpretation (test Normal code = 14247-7) [facility] ChildrenB[facility] FL[facility] DIRECT [id number] 19:31:39 Test Item Value Reference Range Interpretation Comments BF COLOR (test code = Clear 4226534902) BF WBC Count (test 1 See_Comment [Automat ed message] The code = 6230688680) system [facility] generated this result transmit christi reference range : 0 - 5 /?L. The reference r robbie was not used to interpr et this result as yvonne l/abnormal. BF RBC Count (test 7 See_Comment [Automat ed message] The code = 3405022504) system [facility] generated this result transmit christi reference range : /?L. The reference range was not used to interpr et this result as yvonne l/abnormal. [facility] ChildrenB[facility] FLUID MANUAL [id number] 19:31:39 Test Item Value Reference Range Interpretation Comments BF LYMPHS% (test code = 20400-5) 90 % 28-96 BF MACROPHAGE% (test code = 69737-6) 10 % 16-56 L BF #CELLS CNTD (test code = 49 cells/uL 2572898182) Lab Interpretation (test code = Abnormal 80078-7) [facility] ChildrenCEREBROSPINAL FLUID [id number] 19:31:09 Test Item Value Reference Range Interpretation Comments GLU CSF (test code = 79 mg/dL 50-80 7163654885) UNSPUN BODY FLUID Colorless COLOR (test code = 6364057275) UNSPUN BODY FLUID Clear CLARITY (test code = 8075328497) SPUN BODY FLUID COLOR Colorless (test code = 7208320645) SPUN BODY FLUID Clear CLARITY (test code = 2887772765) Sediment (test code = The sediment volume is 8653666617) <0.01 mLs of the total fluid volume of 1 ml and its color is red. [facility] [id number] 19:30:49 Test Item Value Reference Range Interpretation Comments T. PRO CSF (test code = 60.0 mg/dL 15.0-45.0 H 0657198538) UNSPUN BODY FLUID COLOR Colorless (test code = 7283078153) UNSPUN BODY FLUID CLARITY Clear (test code = 1391486766) SPUN BODY FLUID COLOR Colorless (test code = 0154764675) SPUN BODY FLUID CLARITY Clear (test code = 8755983403) Sediment (test code = The sediment volume 6876995227) is <0.01 mLs of the total fluid volume of 1 ml and its color is red. Lab Interpretation (test Abnormal code = 68269-4) [facility])2023-04-28 16:45:15 Test Item Value Reference Range Interpretation Comments POCT GLU (test code = 8236938784) 144 mg/dL 70-110 H Lab Interpretation (test code = Abnormal 49945-6) [facility] ChildrenSYPHILIS [id number] 15:22:30 Test Item Value Reference Range Interpretation Comments Syphilis IgG/IgM (test Non-reactive Non-reactive code = 60237-1) LORE (test code = LORE) Non-reactive - No serologic evidence of T. pallidum infection. Cannot exclude incubating or early syphilis. Submit a second specimen in 2-4 weeks if syphilis is clinically suspected. Equivocal - Further testing to follow. Reactive - Further testing to follow. Lab Interpretation (test Normal code = 26465-1) General acute hospital GLUCOSE (AUTOMATED)2023-04-28 13:10:52 Test Item Value Reference Range Interpretation Comments POCT GLU (test code = 1071509018) 93 mg/dL 70-110 Lab Interpretation (test code = Normal 05826-0) [facility] ChildrenGLYCOSYLATED HEMOGLOBIN (A1C)2023-04-28 02:39:46 Test Item Value Reference Range Interpretation Comments HGB A1C (test code = 5.9 % 4.0-5.7 H 4548-4) LORE (test code = LORE) Reference RangesNormal: <5.7%Prediabetes: 5.7 - 6.4%Diabetes: > 6.5% Lab Interpretation (test Abnormal code = 83281-6) General acute hospital GLUCOSE (AUTOMATED)2023-04-28 01:36:19 Test Item Value Reference Range Interpretation Comments POCT GLU (test code = 3717196249) 156 mg/dL 70-110 H Lab Interpretation (test code = Abnormal 94623-8) General acute hospital GLUCOSE (AUTOMATED)2023-04-27 23:12:02 Test Item Value Reference Range Interpretation Comments POCT GLU (test code = 0164583201) 94 mg/dL 70-110 Lab Interpretation (test code = Normal 15300-1) [facility] [id number] 17:14:15 Test Item Value Reference Range Interpretation Comments TSH (test code = 5.51 See_Comment H [Automated message] [id number]) The system [employer] generated this result transmitted ref erence range: 0.45 - 4 .70 mIU/L. The refe rence range was not u sed to interpret this result as normal/abnor mal. Lab Interpretation (test Abnormal code = 54073-8) General acute hospital GLUCOSE (AUTOMATED)2023-04-27 16:52:30 Test Item Value Reference Range Interpretation Comments POCT GLU (test code = 3289152459) 128 mg/dL 70-110 H Lab Interpretation (test code = Abnormal 61562-4) [facility] (29617)(TOTAL CHOLESTEROL, TRIGLYCERIDES, HDL)2023-04-27 15:48:24 Test Item Value Reference Range Interpretation Comments CHOL (test code = 7029172871) 201 mg/dL 120-200 H HDL (test code = 6058850982) 37 mg/dL >=40 L HDLC RATIO (test code = 7003571660) 5.4 <=5.0 H TRIG (test code = 3744087253) 253 mg/dL 30-170 H LDL CHOL (test code = 34336-4) 113 mg/dL <=160 VLDL (test code = 1481751772) 51 mg/dL 5-60 Lab Interpretation (test code = Abnormal 67613-9) [facility] ChildrenHEP[facility] FUNCTION PANEL (24845) (ALB,T.PRO,BILI T,BU/BC,ALT,AST,ALK PHOS)2023-04-27 15:48:24 Test Item Value Reference Range Interpretation Comments TOTAL BILI (test code = 3059244886) 0.2 mg/dL 0.1-1.1 BILI UNCON (test code = 9837717481) 0.1 mg/dL 0.1-1.1 BILI CONJ (test code = 3658228209) 0.0 mg/dL 0.0-0.3 T PROTEIN (test code = 1642484625) 6.0 g/dL 6.3-8.2 L ALBUMIN (test code = 2826202115) 3.3 g/dL 3.5-5.0 L ALK PHOS (test code = 3202822728) 79 U/L 34-122 ALTv (test code = 1742-6) 14 U/L 5-50 AST(SGOT) (test code = 8930218344) 26 U/L 13-40 Lab Interpretation (test code = Abnormal 78521-2) [facility]2023-[facility] 15:48:24 Test Item Value Reference Range Interpretation Comments PHOSPHORUS (test code = 7836126180) 2.6 mg/dL 2.5-5.0 Lab Interpretation (test code = Normal 34908-7) General acute hospital GLUCOSE (AUTOMATED)2023-04-27 14:39:15 Test Item Value Reference Range Interpretation Comments POCT GLU (test code = 1253616006) 137 mg/dL 70-110 H Lab Interpretation (test code = Abnormal 06420-7) General acute hospital GLUCOSE (AUTOMATED)2023-04-27 14:11:08 Test Item Value Reference Range Interpretation Comments POCT GLU (test code = 1986558181) 38 mg/dL 70-110 LL Lab Interpretation (test code = Abnormal 96097-2) General acute hospital GLUCOSE (AUTOMATED)2023-04-27 02:33:31 Test Item Value Reference Range Interpretation Comments POCT GLU (test code = 5710764176) 105 mg/dL 70-110 Lab Interpretation (test code = Normal 81727-7) General acute hospital GLUCOSE (AUTOMATED)2023-04-26 22:40:42 Test Item Value Reference Range Interpretation Comments POCT GLU (test code = 7933481792) 89 mg/dL 70-110 Lab Interpretation (test code = Normal 65586-4) General acute hospital GLUCOSE (AUTOMATED)2023-04-26 20:06:29 Test Item Value Reference Range Interpretation Comments POCT GLU (test code = 5591383335) 77 mg/dL 70-110 Lab Interpretation (test code = Normal 31822-8) General acute hospital GLUCOSE (AUTOMATED)2023-04-26 13:12:00 Test Item Value Reference Range Interpretation Comments POCT GLU (test code = 7452017687) 121 mg/dL 70-110 H Lab Interpretation (test code = Abnormal 06382-2) [facility] ChildrenVAL[facility] ACID, [id number] 08:44:15 Test Item Value Reference Range Interpretation Comments Valproic Acid, Free 14.2 ug/mL 4.0-15.0 (test code = 4884474634) LORE (test code = LORE) Toxic Range: ? Greater than 15 ug/mL Test developed and characteristics determined by [facility]. Lab Interpretation Normal (test code = 64039-2) General acute hospital WITH [id number] 23:31:07 Test Item Value Reference Range Interpretation Comments WBC (test code = 4.06 See_Comment L [Automated 6690-2) message] The sy stem which generated this result transmitted reference range : 4.20 - 10.70 10*3/?L. The reference range was not used to interpret this result as normal/abnormal . RBC (test code = 4.60 See_Comment [Automated 789-8) message] The sy stem which [...] RDW-SD (test code = 39.8 fL 38.5-51.6 11437-9) RDW-CV (test code = 12.7 % 12.1-15.4 788-0) PLT (test code = 148 See_Comment L [Automated 777-3) message] The sy stem which generated this result transmitted reference range : 150 - 328 10*3/ ?L. The reference r robbie was not used to interpret this result as normal/abnormal . MPV (test code = 9.1 fL 9.8-13.0 L 85709-3) NRBC/100 WBC (test 0.0 See_Comment [Automat ed code = 2169259871) message] The system which generated this result transmitted reference range : 0.0 - 10.0 /100 WBCs. The refer ence range was not u sed to interpret th is result as normal/abnormal . NRBC x10^3 (test code See_Comment [Auto mated = 8398810973) message] The s ystem which generated this result transmitted reference range : 10*3/?L. The reference range was not used to interpret this result as normal/abnormal . GRAN MAT (NEUT) % 53.7 % (test code = 770-8) IMM GRAN % (test code 0.50 % = 6062204299) LYMPH % (test code = 37.4 % 736-9) MONO % (test code = 6.7 % 5905-5) EOS % (test code = 1.2 % 713-8) BASO % (test code = 0.5 % 706-2) GRAN MAT x10^3(ANC) 2.18 10*3/uL 1.99-6.95 (test code = 2075601972) IMM GRAN x10^3 (test 0.00-0.06 code = 6849246136) LYMPH x10^3 (test code 1.52 10*3/uL 1.09-3.23 = 731-0) MONO x10^3 (test code 0.27 10*3/uL 0.36-1.02 L = 742-7) EOS x10^3 (test code = 0.05 10*3/uL 0.06-0.53 L 711-2) BASO x10^3 (test code 0.01-0.09 = 704-7) Lab Interpretation Abnormal (test code = 18196-8) [facility]27:29 Test Item Value Reference Range Interpretation Comments CARBAMAZE (test code = 10.3 ug/mL 4.0-12.0 2243092084) LORE (test code = LORE) Toxic Range: ? Greater than 12 ug/mL Lab Interpretation (test Normal code = 35381-0) [facility] ChildrenCOMP[facility] METABOLIC PANEL ([id number])2023-04-25 23:25:27 Test Item Value Reference Range Interpretation Comments NA (test code = 134 mmol/L 135-145 L 9775735521) K (test code = 3.6 mmol/L 3.5-5.0 7347338786) CL (test code = 98 mmol/L 98-108 9203434493) CO2 TOTAL (test code = 25 mmol/L 23-31 7871672876) AGAP (test code = 11 2-16 7050761572) BUN (test code = 17 mg/dL 7-23 6088950989) GLUCOSE (test code = 135 mg/dL 70-110 H 2693220779) CREATININE (test code = 0.92 mg/dL 0.60-1.25 5727613249) TOTAL BILI (test code = 0.5 mg/dL 0.1-1.1 0859408792) CALCIUM (test code = 8.7 mg/dL 8.6-10.6 2482913406) T PROTEIN (test code = 6.8 g/dL 6.3-8.2 0448192348) ALBUMIN (test code = 4.0 g/dL 3.5-5.0 7451584341) ALK PHOS (test code = 97 U/L 34-122 8665525159) ALTv (test code = 15 U/L 5-50 1742-6) AST(SGOT) (test code = 21 U/L 13-40 2814469201) eGFR (test code = 85.7 mL/min/1.73m2 3962253827) LORE (test code = LORE) Association of [...] tests). Lab Interpretation Abnormal (test code = 05758-0) [facility] ChildrenAMMONIA, [id number] 23:22:24 Test Item Value Reference Range Interpretation Comments AMMONIA (test code = 0398976143) 29 umol/L 9-33 Lab Interpretation (test code = Normal 48546-7) General acute hospital WITH [id number] 03:47:44 Test Item Value Reference Range Interpretation Comments WBC (test code = 4.46 See_Comment [Automated 6690-2) message] The sy stem which generated this result transmitted reference range : 4.20 - 10.70 10*3/?L. The reference range was not used to interpret this result as normal/abnormal . RBC (test code = 4.60 See_Comment [Automated 789-8) message] The sy stem which [...] RDW-SD (test code = 40.0 fL 38.5-51.6 99524-2) RDW-CV (test code = 12.7 % 12.1-15.4 788-0) PLT (test code = 130 See_Comment L [Automated 777-3) message] The sy stem which generated this result transmitted reference range : 150 - 328 10*3/ ?L. The reference r robbie was not used to interpret this result as normal/abnormal . MPV (test code = 10.1 fL 9.8-13.0 07430-4) IPF % (test code = 3.6 % 1.2-10.7 Platelet count 1596736862) measured by fluorescence method. NRBC/100 WBC (test 0.0 See_Comment [Automat ed code = 0702655782) message] The system which generated this result transmitted reference range : 0.0 - 10.0 /100 WBCs. The refer ence range was not u sed to interpret th is result as normal/abnormal . NRBC x10^3 (test code See_Comment [Auto mated = 9220496647) message] The s ystem which generated this result transmitted reference range : 10*3/?L. The reference range was not used to interpret this result as normal/abnormal . GRAN MAT (NEUT) % 38.8 % (test code = 770-8) IMM GRAN % (test code 0.40 % = 5337291353) LYMPH % (test code = 54.3 % 736-9) MONO % (test code = 5.4 % 5905-5) EOS % (test code = 0.7 % 713-8) BASO % (test code = 0.4 % 706-2) GRAN MAT x10^3(ANC) 1.73 10*3/uL 1.99-6.95 L (test code = 1285170325) IMM GRAN x10^3 (test 0.00-0.06 code = 1426890250) LYMPH x10^3 (test code 2.42 10*3/uL 1.09-3.23 = 731-0) MONO x10^3 (test code 0.24 10*3/uL 0.36-1.02 L = 742-7) EOS x10^3 (test code = 0.03 10*3/uL 0.06-0.53 L 711-2) BASO x10^3 (test code 0.01-0.09 = 704-7) Lab Interpretation Abnormal (test code = 07884-3) [facility] ([id number])2023-04-15 03:40:18 Test Item Value Reference Range Interpretation Comments NA (test code = 133 mmol/L 135-145 L 9481276293) K (test code = 3.8 mmol/L 3.5-5.0 7775785967) CL (test code = 96 mmol/L 98-108 L 1344754523) CO2 TOTAL (test code = 27 mmol/L 23-31 9946598943) AGAP (test code = 10 2-16 9025304062) BUN (test code = 25 mg/dL 7-23 H 3057437834) GLUCOSE (test code = 95 mg/dL 70-110 4143241169) CREATININE (test code = 1.11 mg/dL 0.60-1.25 2531995903) TOTAL BILI (test code = 0.6 mg/dL 0.1-1.6 8000171985) CALCIUM (test code = 8.7 mg/dL 8.6-10.6 9644535596) T PROTEIN (test code = 6.5 g/dL 6.3-8.2 4462246449) ALBUMIN (test code = 3.8 g/dL 3.5-5.0 3134175380) ALK PHOS (test code = 81 U/L 34-122 9856827475) ALTv (test code = 20 U/L 5-50 2-6) AST(SGOT) (test code = 32 U/L 13-40 7213973823) eGFR (test code = 69.0 mL/min/1.73m2 4767741076) LORE (test code = LORE) Association of [...] tests). Lab Interpretation Abnormal (test code = 64251-3) [facility]MAG[facility]IUM20[facility] 03:40:18 Test Item Value Reference Range Interpretation Comments MAGNESIUM (test code = 7076121545) 1.6 mg/dL 1.7-2.4 L Lab Interpretation (test code = Abnormal 91844-9) [facility] ChildrenTROPONIN [id number] 14:51:13 Test Item Value Reference Range Interpretation Comments TROPONIN I (test code = 0.018 ng/mL <=0.034 3215391425) LORE (test code = LORE) Reference (Normal) [...] biotin. Lab Interpretation Normal (test code = 58327-4) [facility] ChildrenN-TERMINAL [id number] 14:48:05 Test Item Value Reference Range Interpretation Comments NT-proBNP (test code = 60 pg/mL <=125 9431064200) LORE (test code = LORE) Biotin has been reported to cause a negative bias, interpret results relative to patient's use of biotin. Lab Interpretation (test Normal code = 39007-0) [facility] Test Item Value Reference Range Interpretation Comments MAGNESIUM (test code = 0729055561) 1.9 mg/dL 1.7-2.4 Lab Interpretation (test code = Normal 22630-0) [facility] ([id number])2023-02-21 14:39:34 Test Item Value Reference Range Interpretation Comments NA (test code = 140 mmol/L 135-145 3514924959) K (test code = 5.0 mmol/L 3.5-5.0 8626411363) CL (test code = 107 mmol/L 98-108 7957816675) CO2 TOTAL (test code = 22 mmol/L 23-31 L 8236871706) AGAP (test code = 11 2-16 7904588071) BUN (test code = 23 mg/dL 7-23 5350724947) GLUCOSE (test code = 103 mg/dL 70-110 4652188480) CREATININE (test code = 0.77 mg/dL 0.60-1.25 0556478237) TOTAL BILI (test code = 0.8 mg/dL 0.1-1.4 8474212650) CALCIUM (test code = 8.5 mg/dL 8.6-10.6 L 3081434700) T PROTEIN (test code = 7.3 g/dL 6.3-8.2 0855407680) ALBUMIN (test code = 4.3 g/dL 3.5-5.0 1605071450) ALK PHOS (test code = 67 U/L 34-122 4870902399) ALTv (test code = 20 U/L 5-50 1742-6) AST(SGOT) (test code = 41 U/L 13-40 H 5171072817) eGFR (test code = 105.3 mL/min/1.73m2 7645182058) LORE (test code = LORE) Association of [...] tests). Lab Interpretation Abnormal (test code = 63526-7) General acute hospital WITH [id number] 14:29:33 Test Item Value Reference Range Interpretation Comments WBC (test code = 6.77 See_Comment [Automated 4654-2) message] The sy stem which generated this result transmitted reference range : 4.20 - 10.70 10*3/?L. The reference range was not used to interpret this result as normal/abnormal . RBC (test code = 4.65 See_Comment [Automated 737-8) message] The sy stem which generated this [...] RDW-SD (test code = 43.3 fL 38.5-51.6 40758-9) RDW-CV (test code = 13.2 % 12.1-15.4 788-0) PLT (test code = 133 See_Comment L [Automated 777-3) message] The sy stem which generated this result transmitted reference range : 150 - 328 10*3/ ?L. The reference r robbie was not used to interpret this result as normal/abnormal . MPV (test code = 9.5 fL 9.8-13.0 L 12222-5) IPF % (test code = 1.6 % 1.2-10.7 Platelet count 1915985660) measured by fluorescence method. NRBC/100 WBC (test 0.0 See_Comment [Automat ed code = 7511159912) message] The system which generated this result transmitted reference range : 0.0 - 10.0 /100 WBCs. The refer ence range was not u sed to interpret th is result as normal/abnormal . NRBC x10^3 (test code See_Comment [Auto mated = 3976956320) message] The s ystem which generated this result transmitted reference range : 10*3/?L. The reference range was not used to interpret this result as normal/abnormal . GRAN MAT (NEUT) % 52.5 % (test code = 770-8) IMM GRAN % (test code 0.90 % = 6733481851) LYMPH % (test code = 38.8 % 736-9) MONO % (test code = 7.1 % 5905-5) EOS % (test code = 0.3 % 713-8) BASO % (test code = 0.4 % 706-2) GRAN MAT x10^3(ANC) 3.55 10*3/uL 1.99-6.95 (test code = 0324503591) IMM GRAN x10^3 (test 0.06 10*3/uL 0.00-0.06 code = 2555827806) LYMPH x10^3 (test code 2.63 10*3/uL 1.09-3.23 = 731-0) MONO x10^3 (test code 0.48 10*3/uL 0.36-1.02 = 742-7) EOS x10^3 (test code = 0.06-0.53 L 711-2) BASO x10^3 (test code 0.03 10*3/uL 0.01-0.09 = 704-7) Lab Interpretation Abnormal (test code = 04778-3) [facility]DR[facility] [id number] 15:59:00 Test Item Value Reference Range Interpretation Comments U Cocaine Scr (test Negative *NA*(10/21/17 code = U Cocaine Scr) 9:59 AM) [facility] [id number] 15:59:00 Test Item Value Reference Range Interpretation Comments U Amph Scr (test code Negative *NA*(10/21/17 = U Amph Scr) 9:59 AM) [facility] [id number] 15:59:00 Test Item Value Reference Range Interpretation Comments U Benzodia Scr (test Negative *NA*(10/21/17 code = U Benzodia Scr) 9:59 AM) [facility] [id number] 15:59:00 Test Item Value Reference Range Interpretation Comments U Sophy Scr (test code Positive *ABN*(10/21/17 = U Sophy Scr) 9:59 AM) [facility] [id number] 15:59:00 Test Item Value Reference Range Interpretation Comments U Opiate Scr (test Positive *ABN*(10/21/17 code = U Opiate Scr) 9:59 AM) [facility] AND [id number] 15:59:00 Test Item Value Reference Range Interpretation Comments UA Urobilinogen (test code = UA <=1.0 mg/dL 0.1-1.0 Urobilinogen) [facility] AND [id number] 15:59:00 Test Item Value Reference Range Interpretation Comments UA Mucus (test code = UA Mucus) Few /LPF [facility] [id number] 15:59:00 Test Item Value Reference Range Interpretation Comments UA WBC (test code = 1 See_Comment [Automa christi message] The UA WBC) system which ge nerated this result transmit christi reference range : <=5. The reference range was not used to interpr et this result as yvonne l/abnormal. [facility] [id number] 15:59:00 Test Item Value Reference Range Interpretation Comments U Amph Scr (test code Negative *NA*(10/21/17 = U Amph Scr) 9:59 AM) [facility] [id number] 15:59:00 Test Item Value Reference Range Interpretation Comments UA RBC (test code = no gt See_Comment [Automa christi message] The UA RBC) system which ge nerated this result transmit christi reference range : <=2. The reference range was not used to interpr et this result as yvonne l/abnormal. [facility] [id number] 15:59:00 Test Item Value Reference Range Interpretation Comments UA Blood (test code = Negative (10/21/17 9:59 UA Blood) AM) [facility] [id number] 15:59:00 Test Item Value Reference Range Interpretation Comments UA Ketones (test code = UA Trace mg/dL Ketones) [facility] [id number] 15:59:00 Test Item Value Reference Range Interpretation Comments UA Bili (test code = Negative *NA*(10/21/17 UA Bili) 9:59 AM) [facility] AND [id number] 15:59:00 Test Item Value Reference Range Interpretation Comments UA Protein (test code = UA Negative mg/dL Protein) [facility] AND [id number] 15:59:00 Test Item Value Reference Range Interpretation Comments UA Glucose (test code = UA Glucose) 50 mg/dL [facility] AND [id number] 15:59:00 Test Item Value Reference Range Interpretation Comments UA Spec Grav (test code = UA Spec Grav) 1.024 [facility] AND [id number] 15:59:00 Test Item Value Reference Range Interpretation Comments UA pH (test code = UA pH) 7.0 5.0-8.0 [facility] AND [id number] 15:59:00 Test Item Value Reference Range Interpretation Comments UA Nitrite (test code Negative (10/21/17 9:59 = UA Nitrite) AM) [facility] AND [id number] 15:59:00 Test Item Value Reference Range Interpretation Comments UA Leuk Est (test Negative (10/21/17 9:59 code = UA Leuk Est) AM) [facility] [id number] 15:59:00 Test Item Value Reference Range Interpretation Comments U Benzodia Scr (test Negative *NA*(10/21/17 code = U Benzodia Scr) 9:59 AM) [facility] [id number] 15:59:00 Test Item Value Reference Range Interpretation Comments UA Sq Epi (test code = UA Sq Occasional /LPF Epi) [facility] AND [id number] 15:59:00 Test Item Value Reference Range Interpretation Comments UA Turbidity (test code Slight *ABN*(10/21/17 = UA Turbidity) 9:59 AM) [facility] [id number] 15:59:00 Test Item Value Reference Range Interpretation Comments UA Color (test code = Yellow *NA*(10/21/17 UA Color) 9:59 AM) [facility] [id number] 15:59:00 Test Item Value Reference Range Interpretation Comments U Sophy Scr (test code Positive *ABN*(10/21/17 = U Sophy Scr) 9:59 AM) [facility] [id number] 15:59:00 Test Item Value Reference Range Interpretation Comments U Opiate Scr (test Positive *ABN*(10/21/17 code = U Opiate Scr) 9:59 AM) [facility] [id number] 15:59:00 Test Item Value Reference Range Interpretation Comments UA Urobilinogen (test code = UA <=1.0 mg/dL 0.1-1.0 Urobilinogen) [facility] [id number] 15:59:00 Test Item Value Reference Range Interpretation Comments UDS Note (test code = See Note (10/21/17 9:59 UDS Note) AM) [facility] [id number] 15:59:00 Test Item Value Reference Range Interpretation Comments U Phencyc Scr (test Negative *NA*(10/21/17 code = U Phencyc Scr) 9:59 AM) [facility] [id number] 15:59:00 Test Item Value Reference Range Interpretation Comments U Cannab Scr (test Negative *NA*(10/21/17 code = U Cannab Scr) 9:59 AM) [facility] [id number] 15:59:00 Test Item Value Reference Range Interpretation Comments U Cocaine Scr (test Negative *NA*(10/21/17 code = U Cocaine Scr) 9:59 AM) [facility] [id number] 15:59:00 Test Item Value Reference Range Interpretation Comments U Amph Scr (test code Negative *NA*(10/21/17 = U Amph Scr) 9:59 AM) [facility] [id number] 15:59:00 Test Item Value Reference Range Interpretation Comments U Benzodia Scr (test Negative *NA*(10/21/17 code = U Benzodia Scr) 9:59 AM) [facility] [id number] 15:59:00 Test Item Value Reference Range Interpretation Comments U Sophy Scr (test code Positive *ABN*(10/21/17 = U Sophy Scr) 9:59 AM) [facility] [id number] 15:59:00 Test Item Value Reference Range Interpretation Comments U Opiate Scr (test Positive *ABN*(10/21/17 code = U Opiate Scr) 9:59 AM) [facility] [id number] 15:59:00 Test Item Value Reference Range Interpretation Comments UA Urobilinogen (test code = UA <=1.0 mg/dL 0.1-1.0 Urobilinogen) [facility] [id number] 15:59:00 Test Item Value Reference Range Interpretation Comments UA Mucus (test code = UA Mucus) Few /LPF [facility] [id number] 15:59:00 Test Item Value Reference Range Interpretation Comments UA WBC (test code = 1 See_Comment [Automa christi message] The UA WBC) system which ge nerated this result transmit christi reference range : <=5. The reference range was not used to interpr et this result as yvonne l/abnormal. [facility] [id number] 15:59:00 Test Item Value Reference Range Interpretation Comments UA RBC (test code = no gt See_Comment [Automa christi message] The UA RBC) system which ge nerated this result transmit christi reference range : <=2. The reference range was not used to interpr et this result as yvonne l/abnormal. [facility] [id number] 15:59:00 Test Item Value Reference Range Interpretation Comments UA Blood (test code = Negative (10/21/17 9:59 UA Blood) AM) [facility] [id number] 15:59:00 Test Item Value Reference Range Interpretation Comments UA Ketones (test code = UA Trace mg/dL Ketones) [facility] [id number] 15:59:00 Test Item Value Reference Range Interpretation Comments UA Bili (test code = Negative *NA*(10/21/17 UA Bili) 9:59 AM) [facility] [id number] 15:59:00 Test Item Value Reference Range Interpretation Comments UA Protein (test code = UA Negative mg/dL Protein) [facility] [id number] 15:59:00 Test Item Value Reference Range Interpretation Comments UA Glucose (test code = UA Glucose) 50 mg/dL [facility] [id number] 15:59:00 Test Item Value Reference Range Interpretation Comments UA Spec Grav (test code = UA Spec Grav) 1.024 [facility] [id number] 15:59:00 Test Item Value Reference Range Interpretation Comments UA pH (test code = UA pH) 7.0 5.0-8.0 [facility] [id number] 15:59:00 Test Item Value Reference Range Interpretation Comments UA Nitrite (test code Negative (10/21/17 9:59 = UA Nitrite) AM) [facility] [id number] 15:59:00 Test Item Value Reference Range Interpretation Comments UA Mucus (test code = UA Mucus) Few /LPF [facility] [id number] 15:59:00 Test Item Value Reference Range Interpretation Comments UA Leuk Est (test Negative (10/21/17 9:59 code = UA Leuk Est) AM) [facility] [id number] 15:59:00 Test Item Value Reference Range Interpretation Comments UA Sq Epi (test code = UA Sq Occasional /LPF Epi) [facility] [id number] 15:59:00 Test Item Value Reference Range Interpretation Comments UA Turbidity (test code Slight *ABN*(10/21/17 = UA Turbidity) 9:59 AM) [facility] [id number] 15:59:00 Test Item Value Reference Range Interpretation Comments UA Color (test code = Yellow *NA*(10/21/17 UA Color) 9:59 AM) [facility] [id number] 15:59:00 Test Item Value Reference Range Interpretation Comments UDS Note (test code = See Note (10/21/17 9:59 UDS Note) AM) [facility] [id number] 15:59:00 Test Item Value Reference Range Interpretation Comments UA WBC (test code = 1 See_Comment [Automa christi message] The UA WBC) system which ge nerated this result transmit christi reference range : <=5. The reference range was not used to interpr et this result as yvonne l/abnormal. [facility] [id number] 15:59:00 Test Item Value Reference Range Interpretation Comments U Phencyc Scr (test Negative *NA*(10/21/17 code = U Phencyc Scr) 9:59 AM) [facility] [id number] 15:59:00 Test Item Value Reference Range Interpretation Comments U Cannab Scr (test Negative *NA*(10/21/17 code = U Cannab Scr) 9:59 AM) [facility] [id number] 15:59:00 Test Item Value Reference Range Interpretation Comments U Cocaine Scr (test Negative *NA*(10/21/17 code = U Cocaine Scr) 9:59 AM) [facility] [id number] 15:59:00 Test Item Value Reference Range Interpretation Comments U Amph Scr (test code Negative *NA*(10/21/17 = U Amph Scr) 9:59 AM) [facility] [id number] 15:59:00 Test Item Value Reference Range Interpretation Comments U Benzodia Scr (test Negative *NA*(10/21/17 code = U Benzodia Scr) 9:59 AM) [facility] [id number] 15:59:00 Test Item Value Reference Range Interpretation Comments U Sophy Scr (test code Positive *ABN*(10/21/17 = U Sophy Scr) 9:59 AM) [facility] [id number] 15:59:00 Test Item Value Reference Range Interpretation Comments U Opiate Scr (test Positive *ABN*(10/21/17 code = U Opiate Scr) 9:59 AM) [facility] [id number] 15:59:00 Test Item Value Reference Range Interpretation Comments UA Urobilinogen (test code = UA <=1.0 mg/dL 0.1-1.0 Urobilinogen) [facility] [id number] 15:59:00 Test Item Value Reference Range Interpretation Comments UA Mucus (test code = UA Mucus) Few /LPF [facility] [id number] 15:59:00 Test Item Value Reference Range Interpretation Comments UA WBC (test code = 1 See_Comment [Automa christi message] The UA WBC) system which ge nerated this result transmit christi reference range : <=5. The reference range was not used to interpr et this result as yvonne l/abnormal. [facility] AND [id number] 15:59:00 Test Item Value Reference Range Interpretation Comments UA RBC (test code = no gt See_Comment [Automa christi message] The UA RBC) system which ge nerated this result transmit christi reference range : <=2. The reference range was not used to interpr et this result as yvonne l/abnormal. [facility] AND [id number] 15:59:00 Test Item Value Reference Range Interpretation Comments UA RBC (test code = no gt See_Comment [Automa christi message] The UA RBC) system which ge nerated this result transmit christi reference range : <=2. The reference range was not used to interpr et this result as yvonne l/abnormal. [facility] AND [id number] 15:59:00 Test Item Value Reference Range Interpretation Comments UA Blood (test code = Negative (10/21/17 9:59 UA Blood) AM) [facility] AND [id number] 15:59:00 Test Item Value Reference Range Interpretation Comments UA Ketones (test code = UA Trace mg/dL Ketones) [facility] AND [id number] 15:59:00 Test Item Value Reference Range Interpretation Comments UA Bili (test code = Negative *NA*(10/21/17 UA Bili) 9:59 AM) [facility] AND [id number] 15:59:00 Test Item Value Reference Range Interpretation Comments UA Protein (test code = UA Negative mg/dL Protein) [facility] AND [id number] 15:59:00 Test Item Value Reference Range Interpretation Comments UA Glucose (test code = UA Glucose) 50 mg/dL [facility] AND [id number] 15:59:00 Test Item Value Reference Range Interpretation Comments UA Spec Grav (test code = UA Spec Grav) 1.024 [facility] AND [id number] 15:59:00 Test Item Value Reference Range Interpretation Comments UA pH (test code = UA pH) 7.0 5.0-8.0 [facility] [id number] 15:59:00 Test Item Value Reference Range Interpretation Comments UA Nitrite (test code Negative (10/21/17 9:59 = UA Nitrite) AM) [facility] [id number] 15:59:00 Test Item Value Reference Range Interpretation Comments UA Leuk Est (test Negative (10/21/17 9:59 code = UA Leuk Est) AM) [facility] [id number] 15:59:00 Test Item Value Reference Range Interpretation Comments UA Blood (test code = Negative (10/21/17 9:59 UA Blood) AM) [facility] [id number] 15:59:00 Test Item Value Reference Range Interpretation Comments UA Sq Epi (test code = UA Sq Occasional /LPF Epi) [facility] AND [id number] 15:59:00 Test Item Value Reference Range Interpretation Comments UA Turbidity (test code Slight *ABN*(10/21/17 = UA Turbidity) 9:59 AM) [facility] [id number] 15:59:00 Test Item Value Reference Range Interpretation Comments UA Color (test code = Yellow *NA*(10/21/17 UA Color) 9:59 AM) [facility] [id number] 15:59:00 Test Item Value Reference Range Interpretation Comments UA Ketones (test code = UA Trace mg/dL Ketones) [facility] AND [id number] 15:59:00 Test Item Value Reference Range Interpretation Comments UA Bili (test code = Negative *NA*(10/21/17 UA Bili) 9:59 AM) [facility] [id number] 15:59:00 Test Item Value Reference Range Interpretation Comments UA Protein (test code = UA Negative mg/dL Protein) [facility] [id number] 15:59:00 Test Item Value Reference Range Interpretation Comments UA Glucose (test code = UA Glucose) 50 mg/dL [facility] [id number] 15:59:00 Test Item Value Reference Range Interpretation Comments UDS Note (test code = See Note (10/21/17 9:59 UDS Note) AM) [facility] [id number] 15:59:00 Test Item Value Reference Range Interpretation Comments UA Spec Grav (test code = UA Spec Grav) 1.024 [facility] [id number] 15:59:00 Test Item Value Reference Range Interpretation Comments U Phencyc Scr (test Negative *NA*(10/21/17 code = U Phencyc Scr) 9:59 AM) [facility] [id number] 15:59:00 Test Item Value Reference Range Interpretation Comments U Cannab Scr (test Negative *NA*(10/21/17 code = U Cannab Scr) 9:59 AM) [facility] [id number] 15:59:00 Test Item Value Reference Range Interpretation Comments U Cocaine Scr (test Negative *NA*(10/21/17 code = U Cocaine Scr) 9:59 AM) [facility] [id number] 15:59:00 Test Item Value Reference Range Interpretation Comments U Amph Scr (test code Negative *NA*(10/21/17 = U Amph Scr) 9:59 AM) [facility] [id number] 15:59:00 Test Item Value Reference Range Interpretation Comments U Benzodia Scr (test Negative *NA*(10/21/17 code = U Benzodia Scr) 9:59 AM) [facility] [id number] 15:59:00 Test Item Value Reference Range Interpretation Comments U Sophy Scr (test code Positive *ABN*(10/21/17 = U Sophy Scr) 9:59 AM) [facility] [id number] 15:59:00 Test Item Value Reference Range Interpretation Comments U Opiate Scr (test Positive *ABN*(10/21/17 code = U Opiate Scr) 9:59 AM) [facility] [id number] 15:59:00 Test Item Value Reference Range Interpretation Comments UA Urobilinogen (test code = UA <=1.0 mg/dL 0.1-1.0 Urobilinogen) [facility] [id number] 15:59:00 Test Item Value Reference Range Interpretation Comments UA Mucus (test code = UA Mucus) Few /LPF [facility] [id number] 15:59:00 Test Item Value Reference Range Interpretation Comments UA WBC (test code = 1 See_Comment [Automa christi message] The UA WBC) system which ge nerated this result transmit christi reference range : <=5. The reference range was not used to interpr et this result as yvonne l/abnormal. [facility] AND [id number] 15:59:00 Test Item Value Reference Range Interpretation Comments UA pH (test code = UA pH) 7.0 5.0-8.0 [facility] AND [id number] 15:59:00 Test Item Value Reference Range Interpretation Comments UA RBC (test code = no gt See_Comment [Automa christi message] The UA RBC) system which ge nerated this result transmit christi reference range : <=2. The reference range was not used to interpr et this result as yvonne l/abnormal. [facility] AND [id number] 15:59:00 Test Item Value Reference Range Interpretation Comments UA Blood (test code = Negative (10/21/17 9:59 UA Blood) AM) [facility] AND [id number] 15:59:00 Test Item Value Reference Range Interpretation Comments UA Ketones (test code = UA Trace mg/dL Ketones) [facility] AND [id number] 15:59:00 Test Item Value Reference Range Interpretation Comments UA Bili (test code = Negative *NA*(10/21/17 UA Bili) 9:59 AM) [facility] AND [id number] 15:59:00 Test Item Value Reference Range Interpretation Comments UA Protein (test code = UA Negative mg/dL Protein) [facility] AND [id number] 15:59:00 Test Item Value Reference Range Interpretation Comments UA Glucose (test code = UA Glucose) 50 mg/dL [facility] AND [id number] 15:59:00 Test Item Value Reference Range Interpretation Comments UA Spec Grav (test code = UA Spec Grav) 1.024 [facility] AND [id number] 15:59:00 Test Item Value Reference Range Interpretation Comments UA pH (test code = UA pH) 7.0 5.0-8.0 [facility] AND [id number] 15:59:00 Test Item Value Reference Range Interpretation Comments UA Nitrite (test code Negative (10/21/17 9:59 = UA Nitrite) AM) [facility] [id number] 15:59:00 Test Item Value Reference Range Interpretation Comments UA Leuk Est (test Negative (10/21/17 9:59 code = UA Leuk Est) AM) [facility] [id number] 15:59:00 Test Item Value Reference Range Interpretation Comments UA Nitrite (test code Negative (10/21/17 9:59 = UA Nitrite) AM) [facility] [id number] 15:59:00 Test Item Value Reference Range Interpretation Comments UA Sq Epi (test code = UA Sq Occasional /LPF Epi) [facility] [id number] 15:59:00 Test Item Value Reference Range Interpretation Comments UA Turbidity (test code Slight *ABN*(10/21/17 = UA Turbidity) 9:59 AM) [facility] [id number] 15:59:00 Test Item Value Reference Range Interpretation Comments UA Color (test code = Yellow *NA*(10/21/17 UA Color) 9:59 AM) [facility] [id number] 15:59:00 Test Item Value Reference Range Interpretation Comments UA Leuk Est (test Negative (10/21/17 9:59 code = UA Leuk Est) AM) [facility] [id number] 15:59:00 Test Item Value Reference Range Interpretation Comments UA Sq Epi (test code = UA Sq Occasional /LPF Epi) [facility] [id number] 15:59:00 Test Item Value Reference Range Interpretation Comments U Phencyc Scr (test Negative *NA*(10/21/17 code = U Phencyc Scr) 9:59 AM) [facility] [id number] 15:59:00 Test Item Value Reference Range Interpretation Comments UA Turbidity (test code Slight *ABN*(10/21/17 = UA Turbidity) 9:59 AM) [facility] [id number] 15:59:00 Test Item Value Reference Range Interpretation Comments U Cannab Scr (test Negative *NA*(10/21/17 code = U Cannab Scr) 9:59 AM) [facility] [id number] 15:59:00 Test Item Value Reference Range Interpretation Comments UA Color (test code = Yellow *NA*(10/21/17 UA Color) 9:59 AM) [facility] [id number] 15:59:00 Test Item Value Reference Range Interpretation Comments U Cocaine Scr (test Negative *NA*(10/21/17 code = U Cocaine Scr) 9:59 AM) [facility] [id number] 15:59:00 Test Item Value Reference Range Interpretation Comments UDS Note (test code = See Note (10/21/17 9:59 UDS Note) AM) [facility] [id number] 15:59:00 Test Item Value Reference Range Interpretation Comments U Phencyc Scr (test Negative *NA*(10/21/17 code = U Phencyc Scr) 9:59 AM) [facility] [id number] 15:59:00 Test Item Value Reference Range Interpretation Comments U Cannab Scr (test Negative *NA*(10/21/17 code = U Cannab Scr) 9:59 AM) [facility] [id number] 15:59:00 Test Item Value Reference Range Interpretation Comments U Cocaine Scr (test Negative *NA*(10/21/17 code = U Cocaine Scr) 9:59 AM) [facility] [id number] 15:59:00 Test Item Value Reference Range Interpretation Comments U Amph Scr (test code Negative *NA*(10/21/17 = U Amph Scr) 9:59 AM) [facility] [id number] 15:59:00 Test Item Value Reference Range Interpretation Comments U Benzodia Scr (test Negative *NA*(10/21/17 code = U Benzodia Scr) 9:59 AM) [facility] [id number] 15:59:00 Test Item Value Reference Range Interpretation Comments U Sophy Scr (test code Positive *ABN*(10/21/17 = U Sophy Scr) 9:59 AM) [facility] [id number] 15:59:00 Test Item Value Reference Range Interpretation Comments U Amph Scr (test code Negative *NA*(10/21/17 = U Amph Scr) 9:59 AM) [facility] [id number] 15:59:00 Test Item Value Reference Range Interpretation Comments U Opiate Scr (test Positive *ABN*(10/21/17 code = U Opiate Scr) 9:59 AM) [facility] AND [id number] 15:59:00 Test Item Value Reference Range Interpretation Comments UA Urobilinogen (test code = UA <=1.0 mg/dL 0.1-1.0 Urobilinogen) [facility] AND [id number] 15:59:00 Test Item Value Reference Range Interpretation Comments UA Mucus (test code = UA Mucus) Few /LPF [facility] AND [id number] 15:59:00 Test Item Value Reference Range Interpretation Comments UA WBC (test code = 1 See_Comment [Automa christi message] The UA WBC) system which ge nerated this result transmit christi reference range : <=5. The reference range was not used to interpr et this result as yvonne l/abnormal. [facility] AND [id number] 15:59:00 Test Item Value Reference Range Interpretation Comments UA RBC (test code = no gt See_Comment [Automa christi message] The UA RBC) system which ge nerated this result transmit christi reference range : <=2. The reference range was not used to interpr et this result as yvonne l/abnormal. [facility] AND [id number] 15:59:00 Test Item Value Reference Range Interpretation Comments UA Blood (test code = Negative (10/21/17 9:59 UA Blood) AM) [facility] AND [id number] 15:59:00 Test Item Value Reference Range Interpretation Comments UA Ketones (test code = UA Trace mg/dL Ketones) [facility] AND [id number] 15:59:00 Test Item Value Reference Range Interpretation Comments UA Bili (test code = Negative *NA*(10/21/17 UA Bili) 9:59 AM) [facility] AND [id number] 15:59:00 Test Item Value Reference Range Interpretation Comments UA Protein (test code = UA Negative mg/dL Protein) [facility] [id number] 15:59:00 Test Item Value Reference Range Interpretation Comments U Benzodia Scr (test Negative *NA*(10/21/17 code = U Benzodia Scr) 9:59 AM) [facility] [id number] 15:59:00 Test Item Value Reference Range Interpretation Comments UA Glucose (test code = UA Glucose) 50 mg/dL [facility] AND [id number] 15:59:00 Test Item Value Reference Range Interpretation Comments UA Spec Grav (test code = UA Spec Grav) 1.024 [facility] AND [id number] 15:59:00 Test Item Value Reference Range Interpretation Comments UA pH (test code = UA pH) 7.0 5.0-8.0 [facility] AND [id number] 15:59:00 Test Item Value Reference Range Interpretation Comments UA Nitrite (test code Negative (10/21/17 9:59 = UA Nitrite) AM) [facility] AND [id number] 15:59:00 Test Item Value Reference Range Interpretation Comments UA Leuk Est (test Negative (10/21/17 9:59 code = UA Leuk Est) AM) [facility] AND [id number] 15:59:00 Test Item Value Reference Range Interpretation Comments UA Sq Epi (test code = UA Sq Occasional /LPF Epi) [facility] AND [id number] 15:59:00 Test Item Value Reference Range Interpretation Comments UA Turbidity (test code Slight *ABN*(10/21/17 = UA Turbidity) 9:59 AM) [facility] AND [id number] 15:59:00 Test Item Value Reference Range Interpretation Comments UA Color (test code = Yellow *NA*(10/21/17 UA Color) 9:59 AM) [facility] [id number] 15:59:00 Test Item Value Reference Range Interpretation Comments U Sophy Scr (test code Positive *ABN*(10/21/17 = U Sophy Scr) 9:59 AM) [facility] [id number] 15:59:00 Test Item Value Reference Range Interpretation Comments U Opiate Scr (test Positive *ABN*(10/21/17 code = U Opiate Scr) 9:59 AM) [facility] [id number] 15:59:00 Test Item Value Reference Range Interpretation Comments UA Urobilinogen (test code = UA <=1.0 mg/dL 0.1-1.0 Urobilinogen) [facility] [id number] 15:59:00 Test Item Value Reference Range Interpretation Comments UA Mucus (test code = UA Mucus) Few /LPF [facility] [id number] 15:59:00 Test Item Value Reference Range Interpretation Comments UA WBC (test code = 1 See_Comment [Automa christi message] The UA WBC) system which ge nerated this result transmit christi reference range : <=5. The reference range was not used to interpr et this result as yvonne l/abnormal. [facility] [id number] 15:59:00 Test Item Value Reference Range Interpretation Comments UDS Note (test code = See Note (10/21/17 9:59 UDS Note) AM) [facility] [id number] 15:59:00 Test Item Value Reference Range Interpretation Comments U Phencyc Scr (test Negative *NA*(10/21/17 code = U Phencyc Scr) 9:59 AM) [facility] [id number] 15:59:00 Test Item Value Reference Range Interpretation Comments U Cannab Scr (test Negative *NA*(10/21/17 code = U Cannab Scr) 9:59 AM) [facility] [id number] 15:59:00 Test Item Value Reference Range Interpretation Comments U Cocaine Scr (test Negative *NA*(10/21/17 code = U Cocaine Scr) 9:59 AM) [facility] [id number] 15:59:00 Test Item Value Reference Range Interpretation Comments U Amph Scr (test code Negative *NA*(10/21/17 = U Amph Scr) 9:59 AM) [facility] [id number] 15:59:00 Test Item Value Reference Range Interpretation Comments UA RBC (test code = no gt See_Comment [Automa christi message] The UA RBC) system which ge nerated this result transmit christi reference range : <=2. The reference range was not used to interpr et this result as yvonne l/abnormal. [facility] [id number] 15:59:00 Test Item Value Reference Range Interpretation Comments U Benzodia Scr (test Negative *NA*(10/21/17 code = U Benzodia Scr) 9:59 AM) [facility] [id number] 15:59:00 Test Item Value Reference Range Interpretation Comments U Sophy Scr (test code Positive *ABN*(10/21/17 = U Sophy Scr) 9:59 AM) [facility] [id number] 15:59:00 Test Item Value Reference Range Interpretation Comments U Opiate Scr (test Positive *ABN*(10/21/17 code = U Opiate Scr) 9:59 AM) [facility] [id number] 15:59:00 Test Item Value Reference Range Interpretation Comments UA Urobilinogen (test code = UA <=1.0 mg/dL 0.1-1.0 Urobilinogen) [facility] [id number] 15:59:00 Test Item Value Reference Range Interpretation Comments UA Mucus (test code = UA Mucus) Few /LPF [facility] [id number] 15:59:00 Test Item Value Reference Range Interpretation Comments UA WBC (test code = 1 See_Comment [Automa christi message] The UA WBC) system which ge nerated this result transmit christi reference range : <=5. The reference range was not used to interpr et this result as yvonne l/abnormal. [facility] [id number] 15:59:00 Test Item Value Reference Range Interpretation Comments UA RBC (test code = no gt See_Comment [Automa christi message] The UA RBC) system which ge nerated this result transmit christi reference range : <=2. The reference range was not used to interpr et this result as yvonne l/abnormal. [facility] [id number] 15:59:00 Test Item Value Reference Range Interpretation Comments UA Blood (test code = Negative (10/21/17 9:59 UA Blood) AM) [facility] [id number] 15:59:00 Test Item Value Reference Range Interpretation Comments UA Ketones (test code = UA Trace mg/dL Ketones) [facility] [id number] 15:59:00 Test Item Value Reference Range Interpretation Comments UA Blood (test code = Negative (10/21/17 9:59 UA Blood) AM) [facility] [id number] 15:59:00 Test Item Value Reference Range Interpretation Comments UA Bili (test code = Negative *NA*(10/21/17 UA Bili) 9:59 AM) [facility] AND [id number] 15:59:00 Test Item Value Reference Range Interpretation Comments UA Protein (test code = UA Negative mg/dL Protein) [facility] AND [id number] 15:59:00 Test Item Value Reference Range Interpretation Comments UA Glucose (test code = UA Glucose) 50 mg/dL [facility] AND [id number] 15:59:00 Test Item Value Reference Range Interpretation Comments UA Spec Grav (test code = UA Spec Grav) 1.024 [facility] AND [id number] 15:59:00 Test Item Value Reference Range Interpretation Comments UA pH (test code = UA pH) 7.0 5.0-8.0 [facility] AND [id number] 15:59:00 Test Item Value Reference Range Interpretation Comments UA Nitrite (test code Negative (10/21/17 9:59 = UA Nitrite) AM) [facility] AND [id number] 15:59:00 Test Item Value Reference Range Interpretation Comments UA Leuk Est (test Negative (10/21/17 9:59 code = UA Leuk Est) AM) [facility] AND [id number] 15:59:00 Test Item Value Reference Range Interpretation Comments UA Sq Epi (test code = UA Sq Occasional /LPF Epi) [facility] AND [id number] 15:59:00 Test Item Value Reference Range Interpretation Comments UA Turbidity (test code Slight *ABN*(10/21/17 = UA Turbidity) 9:59 AM) [facility] AND [id number] 15:59:00 Test Item Value Reference Range Interpretation Comments UA Ketones (test code = UA Trace mg/dL Ketones) [facility] AND [id number] 15:59:00 Test Item Value Reference Range Interpretation Comments UA Color (test code = Yellow *NA*(10/21/17 UA Color) 9:59 AM) [facility] AND [id number] 15:59:00 Test Item Value Reference Range Interpretation Comments UA Bili (test code = Negative *NA*(10/21/17 UA Bili) 9:59 AM) [facility] AND [id number] 15:59:00 Test Item Value Reference Range Interpretation Comments UA Protein (test code = UA Negative mg/dL Protein) [facility] [id number] 15:59:00 Test Item Value Reference Range Interpretation Comments UA Glucose (test code = UA Glucose) 50 mg/dL [facility] AND [id number] 15:59:00 Test Item Value Reference Range Interpretation Comments UA Spec Grav (test code = UA Spec Grav) 1.024 [facility] [id number] 15:59:00 Test Item Value Reference Range Interpretation Comments UDS Note (test code = See Note (10/21/17 9:59 UDS Note) AM) [facility] [id number] 15:59:00 Test Item Value Reference Range Interpretation Comments U Phencyc Scr (test Negative *NA*(10/21/17 code = U Phencyc Scr) 9:59 AM) [facility] [id number] 15:59:00 Test Item Value Reference Range Interpretation Comments U Cannab Scr (test Negative *NA*(10/21/17 code = U Cannab Scr) 9:59 AM) [facility] AND [id number] 15:59:00 Test Item Value Reference Range Interpretation Comments UA pH (test code = UA pH) 7.0 5.0-8.0 [facility] [id number] 15:59:00 Test Item Value Reference Range Interpretation Comments U Cocaine Scr (test Negative *NA*(10/21/17 code = U Cocaine Scr) 9:59 AM) [facility] [id number] 15:59:00 Test Item Value Reference Range Interpretation Comments U Amph Scr (test code Negative *NA*(10/21/17 = U Amph Scr) 9:59 AM) [facility] [id number] 15:59:00 Test Item Value Reference Range Interpretation Comments U Benzodia Scr (test Negative *NA*(10/21/17 code = U Benzodia Scr) 9:59 AM) [facility] [id number] 15:59:00 Test Item Value Reference Range Interpretation Comments U Sophy Scr (test code Positive *ABN*(10/21/17 = U Sophy Scr) 9:59 AM) [facility] [id number] 15:59:00 Test Item Value Reference Range Interpretation Comments U Opiate Scr (test Positive *ABN*(10/21/17 code = U Opiate Scr) 9:59 AM) [facility] [id number] 15:59:00 Test Item Value Reference Range Interpretation Comments UA Urobilinogen (test code = UA <=1.0 mg/dL 0.1-1.0 Urobilinogen) [facility] [id number] 15:59:00 Test Item Value Reference Range Interpretation Comments UA Mucus (test code = UA Mucus) Few /LPF [facility] [id number] 15:59:00 Test Item Value Reference Range Interpretation Comments UA WBC (test code = 1 See_Comment [Automa christi message] The UA WBC) system which ge nerated this result transmit christi reference range : <=5. The reference range was not used to interpr et this result as yvonne l/abnormal. [facility] [id number] 15:59:00 Test Item Value Reference Range Interpretation Comments UA RBC (test code = no gt See_Comment [Automa christi message] The UA RBC) system which ge nerated this result transmit christi reference range : <=2. The reference range was not used to interpr et this result as yvonne l/abnormal. [facility] [id number] 15:59:00 Test Item Value Reference Range Interpretation Comments UA Nitrite (test code Negative (10/21/17 9:59 = UA Nitrite) AM) [facility] [id number] 15:59:00 Test Item Value Reference Range Interpretation Comments UA Blood (test code = Negative (10/21/17 9:59 UA Blood) AM) [facility] [id number] 15:59:00 Test Item Value Reference Range Interpretation Comments UA Ketones (test code = UA Trace mg/dL Ketones) [facility] [id number] 15:59:00 Test Item Value Reference Range Interpretation Comments UA Bili (test code = Negative *NA*(10/21/17 UA Bili) 9:59 AM) [facility] [id number] 15:59:00 Test Item Value Reference Range Interpretation Comments UA Protein (test code = UA Negative mg/dL Protein) [facility] AND [id number] 15:59:00 Test Item Value Reference Range Interpretation Comments UA Glucose (test code = UA Glucose) 50 mg/dL [facility] AND [id number] 15:59:00 Test Item Value Reference Range Interpretation Comments UA Spec Grav (test code = UA Spec Grav) 1.024 [facility] AND [id number] 15:59:00 Test Item Value Reference Range Interpretation Comments UA pH (test code = UA pH) 7.0 5.0-8.0 [facility] AND [id number] 15:59:00 Test Item Value Reference Range Interpretation Comments UA Nitrite (test code Negative (10/21/17 9:59 = UA Nitrite) AM) [facility] AND [id number] 15:59:00 Test Item Value Reference Range Interpretation Comments UA Leuk Est (test Negative (10/21/17 9:59 code = UA Leuk Est) AM) [facility] AND [id number] 15:59:00 Test Item Value Reference Range Interpretation Comments UA Leuk Est (test Negative (10/21/17 9:59 code = UA Leuk Est) AM) [facility] AND [id number] 15:59:00 Test Item Value Reference Range Interpretation Comments UA Sq Epi (test code = UA Sq Occasional /LPF Epi) [facility] AND [id number] 15:59:00 Test Item Value Reference Range Interpretation Comments UA Turbidity (test code Slight *ABN*(10/21/17 = UA Turbidity) 9:59 AM) [facility] AND [id number] 15:59:00 Test Item Value Reference Range Interpretation Comments UA Color (test code = Yellow *NA*(10/21/17 UA Color) 9:59 AM) [facility] AND [id number] 15:59:00 Test Item Value Reference Range Interpretation Comments UA Sq Epi (test code = UA Sq Occasional /LPF Epi) [facility] AND [id number] 15:59:00 Test Item Value Reference Range Interpretation Comments UA Turbidity (test code Slight *ABN*(10/21/17 = UA Turbidity) 9:59 AM) [facility] [id number] 15:59:00 Test Item Value Reference Range Interpretation Comments UA Color (test code = Yellow *NA*(10/21/17 UA Color) 9:59 AM) [facility] [id number] 15:59:00 Test Item Value Reference Range Interpretation Comments UDS Note (test code = See Note (10/21/17 9:59 UDS Note) AM) [facility] [id number] 15:59:00 Test Item Value Reference Range Interpretation Comments UDS Note (test code = See Note (10/21/17 9:59 UDS Note) AM) [facility] [id number] 15:59:00 Test Item Value Reference Range Interpretation Comments U Phencyc Scr (test Negative *NA*(10/21/17 code = U Phencyc Scr) 9:59 AM) [facility] [id number] 15:59:00 Test Item Value Reference Range Interpretation Comments U Cannab Scr (test Negative *NA*(10/21/17 code = U Cannab Scr) 9:59 AM) [facility] [id number] 15:59:00 Test Item Value Reference Range Interpretation Comments UDS Note (test code = See Note (10/21/17 9:59 UDS Note) AM) [facility] [id number] 15:59:00 Test Item Value Reference Range Interpretation Comments U Cocaine Scr (test Negative *NA*(10/21/17 code = U Cocaine Scr) 9:59 AM) [facility] [id number] 15:59:00 Test Item Value Reference Range Interpretation Comments U Phencyc Scr (test Negative *NA*(10/21/17 code = U Phencyc Scr) 9:59 AM) [facility] [id number] 15:59:00 Test Item Value Reference Range Interpretation Comments U Cannab Scr (test Negative *NA*(10/21/17 code = U Cannab Scr) 9:59 AM) [facility] [id number] 14:49:00 Test Item Value Reference Range Interpretation Comments Total CK (test code = Total CK) 371 12-191 [facility] [id number] 14:49:00 Test Item Value Reference Range Interpretation Comments eGFR (test code = eGFR) 103 [facility]2017-12-03 14:49:00 Test Item Value Reference Range Interpretation Comments BUN (test code = BUN) 19 7-22 [facility]2017-12-03 14:49:00 Test Item Value Reference Range Interpretation Comments Glucose Lvl (test code = Glucose Lvl) 96 70-99 [facility]2017-12-03 14:49:00 Test Item Value Reference Range Interpretation Comments Creatinine Lvl (test code = Creatinine 0.84 0.50-1.40 Lvl) [facility]2017-12-03 14:49:00 Test Item Value Reference Range Interpretation Comments Sodium Lvl (test code = Sodium Lvl) 140 135-145 [facility]2017-12-03 14:49:00 Test Item Value Reference Range Interpretation Comments Potassium Lvl (test code = Potassium 3.6 3.5-5.1 Lvl) [facility]2017-12-03 14:49:00 Test Item Value Reference Range Interpretation Comments Bili Total (test code = Bili Total) 0.2 0.2-1.3 [facility]2017-12-03 14:49:00 Test Item Value Reference Range Interpretation Comments CO2 (test code = CO2) 24 24-32 [facility]2017-12-03 14:49:00 Test Item Value Reference Range Interpretation Comments Chloride Lvl (test code = Chloride Lvl) 109 95-109 [facility]2017-12-03 14:49:00 Test Item Value Reference Range Interpretation Comments Total Protein (test code = Total 7.6 6.4-8.4 Protein) [facility]2017-12-03 14:49:00 Test Item Value Reference Range Interpretation Comments Calcium Lvl (test code = Calcium Lvl) 8.6 8.5-10.5 [facility]2017-12-03 14:49:00 Test Item Value Reference Range Interpretation Comments Albumin Lvl (test code = Albumin Lvl) 3.5 3.5-5.0 [facility]2017-12-03 14:49:00 Test Item Value Reference Range Interpretation Comments ALT (test code = ALT) 14 See_Comment [Auto mated message] The system which ge nerated this result transmit christi reference range : <=65. The reference range was not used to interpr et this result as yvonne l/abnormal. [facility]2017-12-03 14:49:00 Test Item Value Reference Range Interpretation Comments Alk Phos (test code = Alk Phos) 74 39-136 [facility]2017-12-03 14:49:00 Test Item Value Reference Range Interpretation Comments AST (test code = AST) 15 See_Comment [Auto mated message] The system which ge nerated this result transmit christi reference range : <=37. The reference range was not used to interpr et this result as yvonne l/abnormal. [facility]2017-12-03 14:49:00 Test Item Value Reference Range Interpretation Comments A/G Ratio (test code = A/G Ratio) 0.9 0.7-1.6 [facility]2017-12-03 14:49:00 Test Item Value Reference Range Interpretation Comments AGAP (test code = AGAP) 10.6 10.0-20.0 [facility]2017-12-03 14:49:00 Test Item Value Reference Range Interpretation Comments Globulin (test code = Globulin) 4.1 2.7-4.2 [facility]2017-12-03 14:49:00 Test Item Value Reference Range Interpretation Comments B/C Ratio (test code = B/C Ratio) 23 6-[address] [id number] 14:49:00 Test Item Value Reference Range Interpretation Comments MCHC (test code = MCHC) 33.2 32.0-36.[address] [id number] 14:49:00 Test Item Value Reference Range Interpretation Comments Platelet (test code = Platelet) 136 133-[address] [facility] HospitalUdxbacwWXPCSOPBRZ3675-45-64 14:49:00 Test Item Value Reference Range Interpretation Comments RDW (test code = RDW) 14.5 11.5-14.[address] [facility]WlqrjsvYMLBCTVCDO1897-89-97 14:49:00 Test Item Value Reference Range Interpretation Comments MPV (test code = MPV) 7.0 7.4-10.[address] [facility]XsuajzjRPKKOHBKWF9920-20-78 14:49:00 Test Item Value Reference Range Interpretation Comments WBC (test code = WBC) 4.8 3.7-10.[address] [facility] HospitalJejivhzTTNJXCWGBC4830-83-49 14:49:00 Test Item Value Reference Range Interpretation Comments MCH (test code = MCH) 28.2 pg 27.0-31.[address] [facility] HospitalXnamxtlPKDEQIPBOB9153-27-98 14:49:00 Test Item Value Reference Range Interpretation Comments MCV (test code = MCV) 85.1 80.0-94.[address] [facility] HospitalMgippkaMORRNSMERD1507-97-95 14:49:00 Test Item Value Reference Range Interpretation Comments Hct (test code = Hct) 40.1 42.0-54.[address] [facility] HospitalEtipybcUCCLJAPOTO6792-56-82 14:49:00 Test Item Value Reference Range Interpretation Comments Hgb (test code = Hgb) 13.3 14.0-18.[address] [facility] HospitalRhvuykcDUISIIHKVV4067-16-43 14:49:00 Test Item Value Reference Range Interpretation Comments RBC (test code = RBC) 4.71 4.70-6.[address] [facility] HospitalTrrqrecTYLFCBXYOI1326-39-50 14:49:00 Test Item Value Reference Range Interpretation Comments Segs (test code = Segs) 52.6 45.0-75.[address] [facility] HospitalFjwpicpNLGLTZNELJ5729-11-45 14:49:00 Test Item Value Reference Range Interpretation Comments Monocytes (test code = Monocytes) 7.9 2.0-12.[address] [facility] HospitalBsktorbAUUYMGWMQN0617-57-69 14:49:00 Test Item Value Reference Range Interpretation Comments Lymphocytes (test code = Lymphocytes) 38.4 20.0-40.[address] [facility] HospitalBqmgtzoWOFLWOMLLW0318-95-48 14:49:00 Test Item Value Reference Range Interpretation Comments Segs-Bands # (test code = Segs-Bands #) 2.5 1.5-8.[address] [facility] HospitalRtthoxmQUJXLTNOGE0766-52-86 14:49:00 Test Item Value Reference Range Interpretation Comments Monocytes # (test code 0.4 See_Comment [Aut omated message] The = Monocytes #) system which generated this result tra nsmitted reference range : <=0.8. The reference r robbie was not used to int erpret this result as normal/abnormal . [facility] HospitalIierlgcTSZXNXYLPP7365-44-72 14:49:00 Test Item Value Reference Range Interpretation Comments Eosinophils (test code = 0.7 See_Comment [A utomated message] The Eosinophils) system which ge nerated this result tra nsmitted reference range : <=4.0. The reference r robbie was not used to int erpret this result as normal/abnormal . [facility] HospitalDduewhiQYLXVWIGUJ1201-93-18 14:49:00 Test Item Value Reference Range Interpretation Comments Basophils (test code = 0.4 See_Comment [Aut omated message] The Basophils) system which ge nerated this result tra nsmitted reference range : <=1.0. The reference r robbie was not used to int erpret this result as normal/abnormal . [facility] [id number] 14:49:00 Test Item Value Reference Range Interpretation Comments Total CK (test code = Total CK) 371 12-191 [facility]2017-12-03 14:49:00 Test Item Value Reference Range Interpretation Comments eGFR (test code = eGFR) 103 [facility]2017-12-03 14:49:00 Test Item Value Reference Range Interpretation Comments BUN (test code = BUN) 19 7-22 [facility]2017-12-03 14:49:00 Test Item Value Reference Range Interpretation Comments Glucose Lvl (test code = Glucose Lvl) 96 70-99 [facility]2017-12-03 14:49:00 Test Item Value Reference Range Interpretation Comments Creatinine Lvl (test code = Creatinine 0.84 0.50-1.40 Lvl) [facility]2017-12-03 14:49:00 Test Item Value Reference Range Interpretation Comments Sodium Lvl (test code = Sodium Lvl) 140 135-[address] [facility] HospitalInebndmTMARPTPOME7698-52-78 14:49:00 Test Item Value Reference Range Interpretation Comments Lymphocytes # (test code = Lymphocytes 1.9 1.0-5.5 #) [facility]2017-12-03 14:49:00 Test Item Value Reference Range Interpretation Comments Potassium Lvl (test code = Potassium 3.6 3.5-5.1 Lvl) [facility]2017-12-03 14:49:00 Test Item Value Reference Range Interpretation Comments Bili Total (test code = Bili Total) 0.2 0.2-1.3 [facility]2017-12-03 14:49:00 Test Item Value Reference Range Interpretation Comments CO2 (test code = CO2) 24 24-32 [facility]2017-12-03 14:49:00 Test Item Value Reference Range Interpretation Comments Chloride Lvl (test code = Chloride Lvl) 109 95-109 [facility]2017-12-03 14:49:00 Test Item Value Reference Range Interpretation Comments Total Protein (test code = Total 7.6 6.4-8.4 Protein) [facility]2017-12-03 14:49:00 Test Item Value Reference Range Interpretation Comments Calcium Lvl (test code = Calcium Lvl) 8.6 8.5-10.5 [facility]2017-12-03 14:49:00 Test Item Value Reference Range Interpretation Comments Albumin Lvl (test code = Albumin Lvl) 3.5 3.5-5.0 [facility]2017-12-03 14:49:00 Test Item Value Reference Range Interpretation Comments ALT (test code = ALT) 14 See_Comment [Auto mated message] The system which ge nerated this result transmit christi reference range : <=65. The reference range was not used to interpr et this result as yvonne l/abnormal. [facility]2017-12-03 14:49:00 Test Item Value Reference Range Interpretation Comments Alk Phos (test code = Alk Phos) 74 39-136 [facility]2017-12-03 14:49:00 Test Item Value Reference Range Interpretation Comments AST (test code = AST) 15 See_Comment [Auto mated message] The system which ge nerated this result transmit christi reference range : <=37. The reference range was not used to interpr et this result as yvonne l/abnormal. [facility] HospitalYosplweASDVCZQKND4657-00-55 14:49:00 Test Item Value Reference Range Interpretation Comments Etoh (%) (test code = Etoh (%)) no gt [facility]2017-12-03 14:49:00 Test Item Value Reference Range Interpretation Comments A/G Ratio (test code = A/G Ratio) 0.9 0.7-1.6 [facility]2017-12-03 14:49:00 Test Item Value Reference Range Interpretation Comments AGAP (test code = AGAP) 10.6 10.0-20.0 [place] 316247-12-03 14:49:00 Test Item Value Reference Range Interpretation Comments Globulin (test code = Globulin) 4.1 2.7-4.2 [facility] HospitalCHEM [id number] 14:49:00 Test Item Value Reference Range Interpretation Comments B/C Ratio (test code = B/C Ratio) 23 6-[address] [facility] HospitalKkaveytPSEWPSSLIM9128-00-91 14:49:00 Test Item Value Reference Range Interpretation Comments MCHC (test code = MCHC) 33.2 32.0-36.[address] [facility] HospitalFgwltixABHCFZMIOH3774-41-59 14:49:00 Test Item Value Reference Range Interpretation Comments Platelet (test code = Platelet) 136 133-[address] [facility] HospitalAlndgubJGCNFDBCEG6626-95-18 14:49:00 Test Item Value Reference Range Interpretation Comments RDW (test code = RDW) 14.5 11.5-14.[address] [facility] HospitalKuojizqABNVYEGRKY6477-85-42 14:49:00 Test Item Value Reference Range Interpretation Comments MPV (test code = MPV) 7.0 7.4-10.[address] [facility] HospitalZpjwmxwZCETMYFUEZ2025-89-91 14:49:00 Test Item Value Reference Range Interpretation Comments WBC (test code = WBC) 4.8 3.7-10.[address] [facility] HospitalDxpbocxCKNUURLFCO6643-24-27 14:49:00 Test Item Value Reference Range Interpretation Comments MCH (test code = MCH) 28.2 pg 27.0-31.0 [facility] HospitalSupjxewXSMPJHHVFM5269-83-60 14:49:00 Test Item Value Reference Range Interpretation Comments Ethanol Lvl (test code = Ethanol Lvl) no gt [facility] HospitalUgjdcnlBSGZYWMKSA7650-14-28 14:49:00 Test Item Value Reference Range Interpretation Comments MCV (test code = MCV) 85.1 80.0-94.[address] [facility] HospitalGzghfccCHWDPSGOKC4331-64-23 14:49:00 Test Item Value Reference Range Interpretation Comments Hct (test code = Hct) 40.1 42.0-54.[address] [facility] HospitalAyxucvjKFXNSMXPXE5253-66-51 14:49:00 Test Item Value Reference Range Interpretation Comments Hgb (test code = Hgb) 13.3 14.0-18.[address] [facility] HospitalNbdcugsNCQMGBVEVD4004-62-13 14:49:00 Test Item Value Reference Range Interpretation Comments RBC (test code = RBC) 4.71 4.70-6.[address] [facility] HospitalFxruhrnHHRDGYXCED9726-03-12 14:49:00 Test Item Value Reference Range Interpretation Comments Segs (test code = Segs) 52.6 45.0-75.[address] [facility] HospitalTzssbvhWEMQVHJAHK9681-55-41 14:49:00 Test Item Value Reference Range Interpretation Comments Monocytes (test code = Monocytes) 7.9 2.0-12.[address] [facility] HospitalOlreunkZZZLPITHET2925-83-20 14:49:00 Test Item Value Reference Range Interpretation Comments Lymphocytes (test code = Lymphocytes) 38.4 20.0-40.[address] [facility] HospitalHfsstqmSPAEQCMXIE1235-99-51 14:49:00 Test Item Value Reference Range Interpretation Comments Segs-Bands # (test code = Segs-Bands #) 2.5 1.5-8.[address] [facility] HospitalJopepcaHAFAQGWTMJ3003-06-19 14:49:00 Test Item Value Reference Range Interpretation Comments Monocytes # (test code 0.4 See_Comment [Aut omated message] The = Monocytes #) system which generated this result tra nsmitted reference range : <=0.8. The reference r robbie was not used to int erpret this result as normal/abnormal . [facility] HospitalXsnkmqpPPCXTKKVFD1425-80-15 14:49:00 Test Item Value Reference Range Interpretation Comments Eosinophils (test code = 0.7 See_Comment [A utomated message] The Eosinophils) system which ge nerated this result tra nsmitted reference range : <=4.0. The reference r robbie was not used to int erpret this result as normal/abnormal . [facility] HospitalBtdsugxBUXZGWWUZJ2036-97-64 14:49:00 Test Item Value Reference Range Interpretation Comments Valproic Acid Lvl (test code = Valproic 79 50-100 Acid Lvl) [facility] HospitalFhoysuoDZJSHDQEON7512-84-02 14:49:00 Test Item Value Reference Range Interpretation Comments Basophils (test code = 0.4 See_Comment [Aut omated message] The Basophils) system which ge nerated this result tra nsmitted reference range : <=1.0. The reference r robbie was not used to int erpret this result as normal/abnormal . [facility] HospitalSltuplcAIIIZBTTSL1509-55-39 14:49:00 Test Item Value Reference Range Interpretation Comments Lymphocytes # (test code = Lymphocytes 1.9 1.0-5.5 #) [facility]ijpuadOHVBKRLYLP5790-94-58 14:49:00 Test Item Value Reference Range Interpretation Comments Etoh (%) (test code = Etoh (%)) no gt [facility]EyqmphtWLCFHAPFGT9825-76-69 14:49:00 Test Item Value Reference Range Interpretation Comments Ethanol Lvl (test code = Ethanol Lvl) no gt [facility] AntonioUgbuzxoOFRCOFMAQJ9645-01-71 14:49:00 Test Item Value Reference Range Interpretation Comments Valproic Acid Lvl (test code = Valproic 79 50-100 Acid Lvl) [facility] HospitalCARDIAC [id number] 14:49:00 Test Item Value Reference Range Interpretation Comments Total CK (test code = Total CK) 371 12-191 [facility]2017-12-03 14:49:00 Test Item Value Reference Range Interpretation Comments eGFR (test code = eGFR) 103 [facility]2017-12-03 14:49:00 Test Item Value Reference Range Interpretation Comments BUN (test code = BUN) 19 7-22 [facility]2017-12-03 14:49:00 Test Item Value Reference Range Interpretation Comments Glucose Lvl (test code = Glucose Lvl) 96 70-99 [facility]2017-12-03 14:49:00 Test Item Value Reference Range Interpretation Comments Creatinine Lvl (test code = Creatinine 0.84 0.50-1.40 Lvl) [facility]2017-12-03 14:49:00 Test Item Value Reference Range Interpretation Comments Sodium Lvl (test code = Sodium Lvl) 140 135-145 [facility]2017-12-03 14:49:00 Test Item Value Reference Range Interpretation Comments Potassium Lvl (test code = Potassium 3.6 3.5-5.1 Lvl) [facility]2017-12-03 14:49:00 Test Item Value Reference Range Interpretation Comments Bili Total (test code = Bili Total) 0.2 0.2-1.3 [facility]2017-12-03 14:49:00 Test Item Value Reference Range Interpretation Comments CO2 (test code = CO2) 24 24-32 [facility]2017-12-03 14:49:00 Test Item Value Reference Range Interpretation Comments Chloride Lvl (test code = Chloride Lvl) 109 95-109 [facility]2017-12-03 14:49:00 Test Item Value Reference Range Interpretation Comments Total Protein (test code = Total 7.6 6.4-8.4 Protein) [facility]2017-12-03 14:49:00 Test Item Value Reference Range Interpretation Comments Calcium Lvl (test code = Calcium Lvl) 8.6 8.5-10.5 [facility]2017-12-03 14:49:00 Test Item Value Reference Range Interpretation Comments Albumin Lvl (test code = Albumin Lvl) 3.5 3.5-5.0 [facility]2017-12-03 14:49:00 Test Item Value Reference Range Interpretation Comments ALT (test code = ALT) 14 See_Comment [Auto mated message] The system which ge nerated this result transmit christi reference range : <=65. The reference range was not used to interpr et this result as yvonne l/abnormal. [facility]2017-12-03 14:49:00 Test Item Value Reference Range Interpretation Comments Alk Phos (test code = Alk Phos) 74 39-136 [facility]2017-12-03 14:49:00 Test Item Value Reference Range Interpretation Comments AST (test code = AST) 15 See_Comment [Auto mated message] The system which ge nerated this result transmit christi reference range : <=37. The reference range was not used to interpr et this result as yvonne l/abnormal. [facility]2017-12-03 14:49:00 Test Item Value Reference Range Interpretation Comments A/G Ratio (test code = A/G Ratio) 0.9 0.7-1.6 [facility]2017-12-03 14:49:00 Test Item Value Reference Range Interpretation Comments AGAP (test code = AGAP) 10.6 10.0-20.0 [facility]2017-12-03 14:49:00 Test Item Value Reference Range Interpretation Comments Globulin (test code = Globulin) 4.1 2.7-4.2 [facility]2017-12-03 14:49:00 Test Item Value Reference Range Interpretation Comments B/C Ratio (test code = B/C Ratio) 23 6-[address] [facility]WvsoqlrTLSTFABWMF7766-08-93 14:49:00 Test Item Value Reference Range Interpretation Comments MCHC (test code = MCHC) 33.2 32.0-36.[address] [facility] HospitalLidypynVTWUEJCXOY1860-63-89 14:49:00 Test Item Value Reference Range Interpretation Comments Platelet (test code = Platelet) 136 133-[address] [facility] HospitalVctstkhMZRARFZJAS8068-29-69 14:49:00 Test Item Value Reference Range Interpretation Comments RDW (test code = RDW) 14.5 11.5-14.[address] [facility] HospitalUjvvukqXFCVIHKUSN2936-89-02 14:49:00 Test Item Value Reference Range Interpretation Comments MPV (test code = MPV) 7.0 7.4-10.[address] [facility] HospitalUogrggeSGRWZFYPEB1316-47-22 14:49:00 Test Item Value Reference Range Interpretation Comments WBC (test code = WBC) 4.8 3.7-10.[address] [facility] HospitalGgjhvwzKTPSGTTREX8251-93-40 14:49:00 Test Item Value Reference Range Interpretation Comments MCH (test code = MCH) 28.2 pg 27.0-31.[address] [facility] HospitalZqhtpsoORHWQLMKMM5706-85-27 14:49:00 Test Item Value Reference Range Interpretation Comments MCV (test code = MCV) 85.1 80.0-94.[address] [facility] HospitalExalnkrQYRTFRGIWC4287-63-57 14:49:00 Test Item Value Reference Range Interpretation Comments Hct (test code = Hct) 40.1 42.0-54.[address] [facility] HospitalJtgemhkJCUGYOWBNI8164-48-92 14:49:00 Test Item Value Reference Range Interpretation Comments Hgb (test code = Hgb) 13.3 14.0-18.[address] [facility] HospitalFlqptlvQPGHWVULTW5708-32-35 14:49:00 Test Item Value Reference Range Interpretation Comments RBC (test code = RBC) 4.71 4.70-6.[address] [facility] HospitalXzbmevdJHPOOJLGIN2287-50-99 14:49:00 Test Item Value Reference Range Interpretation Comments Segs (test code = Segs) 52.6 45.0-75.[address] [facility] HospitalCjbsdkoEUILBCQVHF0434-63-76 14:49:00 Test Item Value Reference Range Interpretation Comments Monocytes (test code = Monocytes) 7.9 2.0-12.0 [place] 127407-12-03 14:49:00 Test Item Value Reference Range Interpretation Comments Lymphocytes (test code = Lymphocytes) 38.4 20.0-40.[address] [facility] HospitalOddjtlhLDNQWOTZYW8570-46-66 14:49:00 Test Item Value Reference Range Interpretation Comments Segs-Bands # (test code = Segs-Bands #) 2.5 1.5-8.[address] [facility] HospitalHmohyxrUXVAITMYDZ3242-62-60 14:49:00 Test Item Value Reference Range Interpretation Comments Monocytes # (test code 0.4 See_Comment [Aut omated message] The = Monocytes #) system which generated this result tra nsmitted reference range : <=0.8. The reference r robbie was not used to int erpret this result as normal/abnormal . [facility] HospitalBvlekdqICSDDZHWVZ0491-72-78 14:49:00 Test Item Value Reference Range Interpretation Comments Eosinophils (test code = 0.7 See_Comment [A utomated message] The Eosinophils) system which ge nerated this result tra nsmitted reference range : <=4.0. The reference r robbie was not used to int erpret this result as normal/abnormal . [facility] HospitalBplhlbpEHXFSPMWDX9897-35-44 14:49:00 Test Item Value Reference Range Interpretation Comments Basophils (test code = 0.4 See_Comment [Aut omated message] The Basophils) system which ge nerated this result tra nsmitted reference range : <=1.0. The reference r robbie was not used to int erpret this result as normal/abnormal . [facility] HospitalGzrdwsoCPHKPZAAMN4822-46-16 14:49:00 Test Item Value Reference Range Interpretation Comments Lymphocytes # (test code = Lymphocytes 1.9 1.0-5.5 #) [facility]OX3333[facility] 14:49:00 Test Item Value Reference Range Interpretation Comments Etoh (%) (test code = Etoh (%)) no gt [facility] DallasPlcilvpOWYWZWJKHX0157-17-86 14:49:00 Test Item Value Reference Range Interpretation Comments Ethanol Lvl (test code = Ethanol Lvl) no gt [facility] DallasWwrnegnHICGDEIIJL0008-67-50 14:49:00 Test Item Value Reference Range Interpretation Comments Valproic Acid Lvl (test code = Valproic 79 50-100 Acid Lvl) [facility] ZIAJIRS0022-22-09 14:49:00 Test Item Value Reference Range Interpretation Comments Total CK (test code = Total CK) 371 12-191 [facility]2017-12-03 14:49:00 Test Item Value Reference Range Interpretation Comments eGFR (test code = eGFR) 103 [facility]2017-12-03 14:49:00 Test Item Value Reference Range Interpretation Comments BUN (test code = BUN) 19 7-22 [facility]2017-12-03 14:49:00 Test Item Value Reference Range Interpretation Comments Glucose Lvl (test code = Glucose Lvl) 96 70-99 [facility]2017-12-03 14:49:00 Test Item Value Reference Range Interpretation Comments Creatinine Lvl (test code = Creatinine 0.84 0.50-1.40 Lvl) [facility]2017-12-03 14:49:00 Test Item Value Reference Range Interpretation Comments Sodium Lvl (test code = Sodium Lvl) 140 135-145 [facility]2017-12-03 14:49:00 Test Item Value Reference Range Interpretation Comments Potassium Lvl (test code = Potassium 3.6 3.5-5.1 Lvl) [facility]2017-12-03 14:49:00 Test Item Value Reference Range Interpretation Comments Bili Total (test code = Bili Total) 0.2 0.2-1.3 [facility]2017-12-03 14:49:00 Test Item Value Reference Range Interpretation Comments CO2 (test code = CO2) 24 24-32 [facility]2017-12-03 14:49:00 Test Item Value Reference Range Interpretation Comments Chloride Lvl (test code = Chloride Lvl) 109 95-109 [facility]2017-12-03 14:49:00 Test Item Value Reference Range Interpretation Comments Total Protein (test code = Total 7.6 6.4-8.4 Protein) [facility]2017-12-03 14:49:00 Test Item Value Reference Range Interpretation Comments Calcium Lvl (test code = Calcium Lvl) 8.6 8.5-10.5 [facility]2017-12-03 14:49:00 Test Item Value Reference Range Interpretation Comments Albumin Lvl (test code = Albumin Lvl) 3.5 3.5-5.0 [facility]2017-12-03 14:49:00 Test Item Value Reference Range Interpretation Comments ALT (test code = ALT) 14 See_Comment [Auto mated message] The system which ge nerated this result transmit christi reference range : <=65. The reference range was not used to interpr et this result as yvonne l/abnormal. [facility]2017-12-03 14:49:00 Test Item Value Reference Range Interpretation Comments Alk Phos (test code = Alk Phos) 74 39-136 [facility]2017-12-03 14:49:00 Test Item Value Reference Range Interpretation Comments AST (test code = AST) 15 See_Comment [Auto mated message] The system which ge nerated this result transmit christi reference range : <=37. The reference range was not used to interpr et this result as yvonne l/abnormal. [facility]2017-12-03 14:49:00 Test Item Value Reference Range Interpretation Comments A/G Ratio (test code = A/G Ratio) 0.9 0.7-1.6 [facility]2017-12-03 14:49:00 Test Item Value Reference Range Interpretation Comments AGAP (test code = AGAP) 10.6 10.0-20.0 [facility]2017-12-03 14:49:00 Test Item Value Reference Range Interpretation Comments Globulin (test code = Globulin) 4.1 2.7-4.2 [facility]2017-12-03 14:49:00 Test Item Value Reference Range Interpretation Comments B/C Ratio (test code = B/C Ratio) 23 6-[address] [facility]ud[facility]ZXQANMQUQ0435-93-42 14:49:00 Test Item Value Reference Range Interpretation Comments MCHC (test code = MCHC) 33.2 32.0-36.[address] [facility]KdiqjjlTWRCZBXKBI7959-41-37 14:49:00 Test Item Value Reference Range Interpretation Comments Platelet (test code = Platelet) 136 133-[address] [facility] HospitalMqlsyetCVAHPCNPYQ4337-55-17 14:49:00 Test Item Value Reference Range Interpretation Comments RDW (test code = RDW) 14.5 11.5-14.[address] [facility]PeksqfhEUVLBHGXYU1990-05-65 14:49:00 Test Item Value Reference Range Interpretation Comments MPV (test code = MPV) 7.0 7.4-10.[address] [facility]GnlavvjIFNNIPVABO1672-37-05 14:49:00 Test Item Value Reference Range Interpretation Comments WBC (test code = WBC) 4.8 3.7-10.[address] [facility] HospitalWdjuibeQBGJOVGUJD6842-86-80 14:49:00 Test Item Value Reference Range Interpretation Comments MCH (test code = MCH) 28.2 pg 27.0-31.[address] [facility]NdrcsqvUHCFZCMICX0491-39-99 14:49:00 Test Item Value Reference Range Interpretation Comments MCV (test code = MCV) 85.1 80.0-94.[address] [facility] HospitalMmwjfihGOUFRYCBTQ1911-19-53 14:49:00 Test Item Value Reference Range Interpretation Comments Hct (test code = Hct) 40.1 42.0-54.[address] [facility] HospitalGylrsgjWOUIEYVXJF4468-87-15 14:49:00 Test Item Value Reference Range Interpretation Comments Hgb (test code = Hgb) 13.3 14.0-18.[address] [facility] HospitalYbchmutPBFRECNJHX0467-06-24 14:49:00 Test Item Value Reference Range Interpretation Comments RBC (test code = RBC) 4.71 4.70-6.[address] [facility] HospitalVqekcvyEYYQATHBPB3477-77-72 14:49:00 Test Item Value Reference Range Interpretation Comments Segs (test code = Segs) 52.6 45.0-75.[address] [facility] HospitalKiukxrwARIBPTTTFH7508-39-19 14:49:00 Test Item Value Reference Range Interpretation Comments Monocytes (test code = Monocytes) 7.9 2.0-12.[address] [facility] HospitalOkirilkOKIFFGZLLE2863-94-71 14:49:00 Test Item Value Reference Range Interpretation Comments Lymphocytes (test code = Lymphocytes) 38.4 20.0-40.[address] [facility] HospitalWmhkbcnNHPDHLEANK5049-71-44 14:49:00 Test Item Value Reference Range Interpretation Comments Segs-Bands # (test code = Segs-Bands #) 2.5 1.5-8.[address] [facility] HospitalIimjxcdSLTEGWJZSY8460-46-57 14:49:00 Test Item Value Reference Range Interpretation Comments Monocytes # (test code 0.4 See_Comment [Aut omated message] The = Monocytes #) system which generated this result tra nsmitted reference range : <=0.8. The reference r robbie was not used to int erpret this result as normal/abnormal . [facility] 14:49:00 Test Item Value Reference Range Interpretation Comments Eosinophils (test code = 0.7 See_Comment [A utomated message] The Eosinophils) system which ge nerated this result tra nsmitted reference range : <=4.0. The reference r robbie was not used to int erpret this result as normal/abnormal . [facility] HospitalFojamvbGSJJCJBJZP7969-05-14 14:49:00 Test Item Value Reference Range Interpretation Comments Basophils (test code = 0.4 See_Comment [Aut omated message] The Basophils) system which ge nerated this result tra nsmitted reference range : <=1.0. The reference r robbie was not used to int erpret this result as normal/abnormal . [facility] HospitalGttqdngROKBBEMBKH1244-10-12 14:49:00 Test Item Value Reference Range Interpretation Comments Lymphocytes # (test code = Lymphocytes 1.9 1.0-5.5 #) [facility]MyiomxpQSZNTMLFBV7745-26-29 14:49:00 Test Item Value Reference Range Interpretation Comments Etoh (%) (test code = Etoh (%)) no gt [facility] FwkjiseBWICCTTURM3138-25-89 14:49:00 Test Item Value Reference Range Interpretation Comments Ethanol Lvl (test code = Ethanol Lvl) no gt [facility] WaojqzyJYRPFXUXLF1034-64-75 14:49:00 Test Item Value Reference Range Interpretation Comments Valproic Acid Lvl (test code = Valproic 79 50-100 Acid Lvl) [facility]FashionQlubAC CFSAWLQ4407-38-74 14:49:00 Test Item Value Reference Range Interpretation Comments Total CK (test code = Total CK) 371 [facility] [employer] IESCW9402-12-47 14:49:00 Test Item Value Reference Range Interpretation Comments eGFR (test code = eGFR) 103 [facility] [employer] TPPRN5741-78-73 14:49:00 Test Item Value Reference Range Interpretation Comments BUN (test code = BUN) 19 7-22 [facility] [employer] DQJJADM8660-31-33 14:49:00 Test Item Value Reference Range Interpretation Comments Total CK (test code = Total CK) 371 [facility] crobo2017-12-03 14:49:00 Test Item Value Reference Range Interpretation Comments eGFR (test code = eGFR) 103 [facility]2017-12-03 14:49:00 Test Item Value Reference Range Interpretation Comments BUN (test code = BUN) 19 7-22 [facility]2017-12-03 14:49:00 Test Item Value Reference Range Interpretation Comments Glucose Lvl (test code = Glucose Lvl) 96 70-99 [facility]2017-12-03 14:49:00 Test Item Value Reference Range Interpretation Comments Creatinine Lvl (test code = Creatinine 0.84 0.50-1.40 Lvl) [facility]2017-12-03 14:49:00 Test Item Value Reference Range Interpretation Comments Sodium Lvl (test code = Sodium Lvl) 140 135-145 [facility]2017-12-03 14:49:00 Test Item Value Reference Range Interpretation Comments Potassium Lvl (test code = Potassium 3.6 3.5-5.1 Lvl) [facility]2017-12-03 14:49:00 Test Item Value Reference Range Interpretation Comments Glucose Lvl (test code = Glucose Lvl) 96 70-99 [facility]2017-12-03 14:49:00 Test Item Value Reference Range Interpretation Comments Bili Total (test code = Bili Total) 0.2 0.2-1.3 [facility]2017-12-03 14:49:00 Test Item Value Reference Range Interpretation Comments CO2 (test code = CO2) 24 24-32 [facility]2017-12-03 14:49:00 Test Item Value Reference Range Interpretation Comments Chloride Lvl (test code = Chloride Lvl) 109 95-109 [facility]2017-12-03 14:49:00 Test Item Value Reference Range Interpretation Comments Total Protein (test code = Total 7.6 6.4-8.4 Protein) [facility]2017-12-03 14:49:00 Test Item Value Reference Range Interpretation Comments Calcium Lvl (test code = Calcium Lvl) 8.6 8.5-10.5 [facility]2017-12-03 14:49:00 Test Item Value Reference Range Interpretation Comments Albumin Lvl (test code = Albumin Lvl) 3.5 3.5-5.0 [facility]2017-12-03 14:49:00 Test Item Value Reference Range Interpretation Comments ALT (test code = ALT) 14 See_Comment [Auto mated message] The system which ge nerated this result transmit christi reference range : <=65. The reference range was not used to interpr et this result as yvonne l/abnormal. [facility]2017-12-03 14:49:00 Test Item Value Reference Range Interpretation Comments Alk Phos (test code = Alk Phos) 74 39-136 [facility]2017-12-03 14:49:00 Test Item Value Reference Range Interpretation Comments AST (test code = AST) 15 See_Comment [Auto mated message] The system which ge nerated this result transmit christi reference range : <=37. The reference range was not used to interpr et this result as yvonne l/abnormal. [facility]2017-12-03 14:49:00 Test Item Value Reference Range Interpretation Comments A/G Ratio (test code = A/G Ratio) 0.9 0.7-1.6 [facility]2017-12-03 14:49:00 Test Item Value Reference Range Interpretation Comments Creatinine Lvl (test code = Creatinine 0.84 0.50-1.40 Lvl) [facility]2017-12-03 14:49:00 Test Item Value Reference Range Interpretation Comments AGAP (test code = AGAP) 10.6 10.0-20.0 [facility]2017-12-03 14:49:00 Test Item Value Reference Range Interpretation Comments Globulin (test code = Globulin) 4.1 2.7-4.2 [facility]2017-12-03 14:49:00 Test Item Value Reference Range Interpretation Comments B/C Ratio (test code = B/C Ratio) 23 6-[address] [facility]BicnlauQORJXUDDXC7191-59-35 14:49:00 Test Item Value Reference Range Interpretation Comments MCHC (test code = MCHC) 33.2 32.0-36.[address] [facility] HospitalXrggqbaOKZSFUOMOP4832-76-99 14:49:00 Test Item Value Reference Range Interpretation Comments Platelet (test code = Platelet) 136 133-[address] [facility] HospitalVipwjjtZLEBYDXPBH4205-23-13 14:49:00 Test Item Value Reference Range Interpretation Comments RDW (test code = RDW) 14.5 11.5-14.[address] [facility] HospitalIgrlzbcCACEMAMCBB5278-50-98 14:49:00 Test Item Value Reference Range Interpretation Comments MPV (test code = MPV) 7.0 7.4-10.[address] [facility] HospitalQafzefxKKTKRJWZOR9816-48-65 14:49:00 Test Item Value Reference Range Interpretation Comments WBC (test code = WBC) 4.8 3.7-10.[address] [facility] HospitalPdisccxZUQTQHXLZU9766-68-41 14:49:00 Test Item Value Reference Range Interpretation Comments MCH (test code = MCH) 28.2 pg 27.0-31.[address] [facility] HospitalIwoecptXECGTGIHIC1484-53-83 14:49:00 Test Item Value Reference Range Interpretation Comments MCV (test code = MCV) 85.1 80.0-94.0 [facility]2017-12-03 14:49:00 Test Item Value Reference Range Interpretation Comments Sodium Lvl (test code = Sodium Lvl) 140 135-[address] [facility] HospitalAxmhvxzAPABKFGREK9957-79-52 14:49:00 Test Item Value Reference Range Interpretation Comments Hct (test code = Hct) 40.1 42.0-54.[address] [facility] HospitalEylkbqzQDQUYGQLHV5742-45-73 14:49:00 Test Item Value Reference Range Interpretation Comments Hgb (test code = Hgb) 13.3 14.0-18.[address] [facility] HospitalJrzbzcfLQJNWCDULS6551-47-88 14:49:00 Test Item Value Reference Range Interpretation Comments RBC (test code = RBC) 4.71 4.70-6.[address] [facility]XxdxfkjCOBUPDVEBA0725-26-51 14:49:00 Test Item Value Reference Range Interpretation Comments Segs (test code = Segs) 52.6 45.0-75.[address] [facility] HospitalAkzapkqQGBZAKOKKQ5122-21-15 14:49:00 Test Item Value Reference Range Interpretation Comments Monocytes (test code = Monocytes) 7.9 2.0-12.[address] [facility] HospitalHyicnkaHNTMMSZZPR2170-26-46 14:49:00 Test Item Value Reference Range Interpretation Comments Lymphocytes (test code = Lymphocytes) 38.4 20.0-40.[address] [facility] HospitalVttidsnLQJPFYWZXO1454-86-77 14:49:00 Test Item Value Reference Range Interpretation Comments Segs-Bands # (test code = Segs-Bands #) 2.5 1.5-8.[address] [facility] HospitalGgdhluuSBVJSPMRAD2723-95-11 14:49:00 Test Item Value Reference Range Interpretation Comments Monocytes # (test code 0.4 See_Comment [Aut omated message] The = Monocytes #) system which generated this result tra nsmitted reference range : <=0.8. The reference r robbie was not used to int erpret this result as normal/abnormal . [facility] HospitalYhogihmZAVKDVQTSO5683-25-56 14:49:00 Test Item Value Reference Range Interpretation Comments Eosinophils (test code = 0.7 See_Comment [A utomated message] The Eosinophils) system which ge nerated this result tra nsmitted reference range : <=4.0. The reference r robbie was not used to int erpret this result as normal/abnormal . [facility] HospitalSjvwuvfZBJUIBPNMY3263-41-40 14:49:00 Test Item Value Reference Range Interpretation Comments Basophils (test code = 0.4 See_Comment [Aut omated message] The Basophils) system which ge nerated this result tra nsmitted reference range : <=1.0. The reference r robbie was not used to int erpret this result as normal/abnormal . [facility]2017-12-03 14:49:00 Test Item Value Reference Range Interpretation Comments Potassium Lvl (test code = Potassium 3.6 3.5-5.1 Lvl) [facility] HospitalKmoplufHPSRFFSKNG8943-07-35 14:49:00 Test Item Value Reference Range Interpretation Comments Lymphocytes # (test code = Lymphocytes 1.9 1.0-5.5 #) [place] [id number] 14:49:00 Test Item Value Reference Range Interpretation Comments Etoh (%) (test code = Etoh (%)) no gt [place] [id number] 14:49:00 Test Item Value Reference Range Interpretation Comments Ethanol Lvl (test code = Ethanol Lvl) no gt [place] [id number] 14:49:00 Test Item Value Reference Range Interpretation Comments Valproic Acid Lvl (test code = Valproic 79 50-100 Acid Lvl) [facility]2017-12-03 14:49:00 Test Item Value Reference Range Interpretation Comments Bili Total (test code = Bili Total) 0.2 0.2-1.3 [facility]AddictiveFIRSTHEALTHSUJYV7250-65-31 14:49:00 Test Item Value Reference Range Interpretation Comments CO2 (test code = CO2) 24 - [facility]AddictiveFIRSTHEALTHJFGAC1085-65-63 14:49:00 Test Item Value Reference Range Interpretation Comments Chloride Lvl (test code = Chloride Lvl) 109 95-109 [facility] HospitalCARDIAC ATWVGDP7733-15-86 14:49:00 Test Item Value Reference Range Interpretation Comments Total CK (test code = Total CK) 371 12-191 [facility]AddictiveFIRSTHEALTHEOEOU8970-01-13 14:49:00 Test Item Value Reference Range Interpretation Comments eGFR (test code = eGFR) 103 [facility]AddictiveFIRSTHEALTHVMXZZ0375-63-49 14:49:00 Test Item Value Reference Range Interpretation Comments BUN (test code = BUN) 19 7-22 [facility]2017-12-03 14:49:00 Test Item Value Reference Range Interpretation Comments Glucose Lvl (test code = Glucose Lvl) 96 70-99 [facility] [id number] 14:49:00 Test Item Value Reference Range Interpretation Comments Creatinine Lvl (test code = Creatinine 0.84 0.50-1.40 Lvl) [facility] [id number] 14:49:00 Test Item Value Reference Range Interpretation Comments Total Protein (test code = Total 7.6 6.4-8.4 Protein) [facility]2017-12-03 14:49:00 Test Item Value Reference Range Interpretation Comments Sodium Lvl (test code = Sodium Lvl) 140 135-145 [facility] [id number] 14:49:00 Test Item Value Reference Range Interpretation Comments Potassium Lvl (test code = Potassium 3.6 3.5-5.1 Lvl) [facility] [id number] 14:49:00 Test Item Value Reference Range Interpretation Comments Bili Total (test code = Bili Total) 0.2 0.2-1.3 [facility] HospitalInnovation Fuels [id number] 14:49:00 Test Item Value Reference Range Interpretation Comments CO2 (test code = CO2) 24 -32 [facility] HospitalInn[facility]els [id number] 14:49:00 Test Item Value Reference Range Interpretation Comments Chloride Lvl (test code = Chloride Lvl) 109 95-109 [facility]2017-12-03 14:49:00 Test Item Value Reference Range Interpretation Comments Total Protein (test code = Total 7.6 6.4-8.4 Protein) [facility]2017-12-03 14:49:00 Test Item Value Reference Range Interpretation Comments Calcium Lvl (test code = Calcium Lvl) 8.6 8.5-10.5 [facility]2017-12-03 14:49:00 Test Item Value Reference Range Interpretation Comments Albumin Lvl (test code = Albumin Lvl) 3.5 3.5-5.0 [facility]2017-12-03 14:49:00 Test Item Value Reference Range Interpretation Comments ALT (test code = ALT) 14 See_Comment [Auto mated message] The system which ge nerated this result transmit christi reference range : <=65. The reference range was not used to interpr et this result as yvonne l/abnormal. [facility]2017-12-03 14:49:00 Test Item Value Reference Range Interpretation Comments Alk Phos (test code = Alk Phos) 74 39-136 [facility]2017-12-03 14:49:00 Test Item Value Reference Range Interpretation Comments Calcium Lvl (test code = Calcium Lvl) 8.6 8.5-10.5 [facility]2017-12-03 14:49:00 Test Item Value Reference Range Interpretation Comments AST (test code = AST) 15 See_Comment [Auto mated message] The system which ge nerated this result transmit christi reference range : <=37. The reference range was not used to interpr et this result as yvonne l/abnormal. [facility]2017-12-03 14:49:00 Test Item Value Reference Range Interpretation Comments A/G Ratio (test code = A/G Ratio) 0.9 0.7-1.6 [facility]2017-12-03 14:49:00 Test Item Value Reference Range Interpretation Comments AGAP (test code = AGAP) 10.6 10.0-20.0 [facility]2017-12-03 14:49:00 Test Item Value Reference Range Interpretation Comments Globulin (test code = Globulin) 4.1 2.7-4.2 [facility]2017-12-03 14:49:00 Test Item Value Reference Range Interpretation Comments B/C Ratio (test code = B/C Ratio) 23 6-[address] [facility]EtytjnpMKXRRUOZJR0641-11-94 14:49:00 Test Item Value Reference Range Interpretation Comments MCHC (test code = MCHC) 33.2 32.0-36.[address] [facility] HospitalClucdywMPKLCYZUOY8694-22-60 14:49:00 Test Item Value Reference Range Interpretation Comments Platelet (test code = Platelet) 136 133-[address] [facility] HospitalKidhwznYIVITDZXLA4243-37-81 14:49:00 Test Item Value Reference Range Interpretation Comments RDW (test code = RDW) 14.5 11.5-14.[address] [facility] HospitalYuxsmoxUMJGPDSLYO9621-45-41 14:49:00 Test Item Value Reference Range Interpretation Comments MPV (test code = MPV) 7.0 7.4-10.[address] [facility] HospitalQdevokeCKPPTSJDNH1064-24-40 14:49:00 Test Item Value Reference Range Interpretation Comments WBC (test code = WBC) 4.8 3.7-10.4 [facility]2017-12-03 14:49:00 Test Item Value Reference Range Interpretation Comments Albumin Lvl (test code = Albumin Lvl) 3.5 3.5-5.[address] [facility] HospitalPuspwlkRWVEVHFKOK9694-33-86 14:49:00 Test Item Value Reference Range Interpretation Comments MCH (test code = MCH) 28.2 pg 27.0-31.[address] [facility] HospitalVlqicwyMRAZXRCLKK2450-27-43 14:49:00 Test Item Value Reference Range Interpretation Comments MCV (test code = MCV) 85.1 80.0-94.[address] [facility] HospitalAzulehsIXGCCXWFAL6622-50-56 14:49:00 Test Item Value Reference Range Interpretation Comments Hct (test code = Hct) 40.1 42.0-54.[address] [facility] HospitalKxzocmdEREUQNKWZV0891-62-04 14:49:00 Test Item Value Reference Range Interpretation Comments Hgb (test code = Hgb) 13.3 14.0-18.[address] [facility] HospitalLuuwwxjKNKOOIFZNP2721-87-79 14:49:00 Test Item Value Reference Range Interpretation Comments RBC (test code = RBC) 4.71 4.70-6.[address] [facility] HospitalYzoqyvfJBSIFJHLNA1998-85-13 14:49:00 Test Item Value Reference Range Interpretation Comments Segs (test code = Segs) 52.6 45.0-75.[address] [facility] HospitalMevojdxCOEZSPDFIX7266-27-70 14:49:00 Test Item Value Reference Range Interpretation Comments Monocytes (test code = Monocytes) 7.9 2.0-12.[address] [facility] HospitalSjkutoiULIAZZUWOO0753-03-34 14:49:00 Test Item Value Reference Range Interpretation Comments Lymphocytes (test code = Lymphocytes) 38.4 20.0-40.[address] [facility] HospitalFpnxldtIPAZOFKDBN9084-40-06 14:49:00 Test Item Value Reference Range Interpretation Comments Segs-Bands # (test code = Segs-Bands #) 2.5 1.5-8.[address] [facility] HospitalAolzqlsUHYSXNQQDX4403-74-39 14:49:00 Test Item Value Reference Range Interpretation Comments Monocytes # (test code 0.4 See_Comment [Aut omated message] The = Monocytes #) system which generated this result tra nsmitted reference range : <=0.8. The reference r robbie was not used to int erpret this result as normal/abnormal . [facility]2017-12-03 14:49:00 Test Item Value Reference Range Interpretation Comments ALT (test code = ALT) 14 See_Comment [Auto mated message] The system which ge nerated this result transmit christi reference range : <=65. The reference range was not used to interpr et this result as yvonne l/abnormal. [facility] [facility]GU7957-20-70 14:49:00 Test Item Value Reference Range Interpretation Comments Eosinophils (test code = 0.7 See_Comment [A utomated message] The Eosinophils) system which ge nerated this result tra nsmitted reference range : <=4.0. The reference r robbie was not used to int erpret this result as normal/abnormal . [facility]FX[facility]80[facility] 14:49:00 Test Item Value Reference Range Interpretation Comments Basophils (test code = 0.4 See_Comment [Aut omated message] The Basophils) system which ge nerated this result tra nsmitted reference range : <=1.0. The reference r robbie was not used to int erpret this result as normal/abnormal . [facility] HospitalMzmcwigKAKTUTBUVK7301-25-56 14:49:00 Test Item Value Reference Range Interpretation Comments Lymphocytes # (test code = Lymphocytes 1.9 1.0-5.5 #) [facility] HospitalPtyjuvkVJDICGWGLG8783-39-50 14:49:00 Test Item Value Reference Range Interpretation Comments Etoh (%) (test code = Etoh (%)) [facility] gt [facility]KlknnilSDBFAWXNXB8059-92-06 14:49:00 Test Item Value Reference Range Interpretation Comments Ethanol Lvl (test code = Ethanol Lvl) no gt [facility] DallasVzfmqqwOYEKXMRVNV3444-29-94 14:49:00 Test Item Value Reference Range Interpretation Comments Valproic Acid Lvl (test code = Valproic 79 50-100 [facility] Lvl) [facility] [id number] 14:49:00 Test Item Value Reference Range Interpretation Comments Alk Phos (test code = Alk Phos) 74 39-136 [facility] HospitalInnovation Fuels [id number] 14:49:00 Test Item Value Reference Range Interpretation Comments AST (test code = AST) 15 See_Comment [Auto mated message] The system which ge nerated this result transmit chritsi reference range : <=37. The reference range was not used to interpr et this result as yvonne l/abnormal. [facility] [id number] 14:49:00 Test Item Value Reference Range Interpretation Comments A/G Ratio (test code = A/G Ratio) 0.9 0.7-1.6 [facility] HospitalCARDIAC ETVARJM4264-11-09 14:49:00 Test Item Value Reference Range Interpretation Comments Total CK (test code = Total CK) 371 12-191 [facility] [id number] 14:49:00 Test Item Value Reference Range Interpretation Comments eGFR (test code = eGFR) 103 [facility] FALYW2017-73-05 14:49:00 Test Item Value Reference Range Interpretation Comments BUN (test code = BUN) 19 7-22 [facility] [id number] 14:49:00 Test Item Value Reference Range Interpretation Comments AGAP (test code = AGAP) 10.6 10.0-20.0 [facility] [id number] 14:49:00 Test Item Value Reference Range Interpretation Comments Glucose Lvl (test code = Glucose Lvl) 96 70-99 [facility] [id number] 14:49:00 Test Item Value Reference Range Interpretation Comments Creatinine Lvl (test code = Creatinine 0.84 0.50-1.40 Lvl) [facility]2017-12-03 14:49:00 Test Item Value Reference Range Interpretation Comments Sodium Lvl (test code = Sodium Lvl) 140 135-145 [facility]2017-12-03 14:49:00 Test Item Value Reference Range Interpretation Comments Potassium Lvl (test code = Potassium 3.6 3.5-5.1 Lvl) [facility]2017-12-03 14:49:00 Test Item Value Reference Range Interpretation Comments Bili Total (test code = Bili Total) 0.2 0.2-1.3 [facility]2017-12-03 14:49:00 Test Item Value Reference Range Interpretation Comments CO2 (test code = CO2) 24 24-32 [facility]2017-12-03 14:49:00 Test Item Value Reference Range Interpretation Comments Chloride Lvl (test code = Chloride Lvl) 109 95-109 [facility]2017-12-03 14:49:00 Test Item Value Reference Range Interpretation Comments Total Protein (test code = Total 7.6 6.4-8.4 Protein) [facility]2017-12-03 14:49:00 Test Item Value Reference Range Interpretation Comments Calcium Lvl (test code = Calcium Lvl) 8.6 8.5-10.5 [facility]2017-12-03 14:49:00 Test Item Value Reference Range Interpretation Comments Albumin Lvl (test code = Albumin Lvl) 3.5 3.5-5.0 [facility]2017-12-03 14:49:00 Test Item Value Reference Range Interpretation Comments Globulin (test code = Globulin) 4.1 2.7-4.2 [facility]2017-12-03 14:49:00 Test Item Value Reference Range Interpretation Comments ALT (test code = ALT) 14 See_Comment [Auto mated message] The system which ge nerated this result transmit christi reference range : <=65. The reference range was not used to interpr et this result as yvonne l/abnormal. [facility]2017-12-03 14:49:00 Test Item Value Reference Range Interpretation Comments Alk Phos (test code = Alk Phos) 74 39-136 [facility]2017-12-03 14:49:00 Test Item Value Reference Range Interpretation Comments AST (test code = AST) 15 See_Comment [Auto mated message] The system which ge nerated this result transmit christi reference range : <=37. The reference range was not used to interpr et this result as yvonne l/abnormal. [facility]2017-12-03 14:49:00 Test Item Value Reference Range Interpretation Comments A/G Ratio (test code = A/G Ratio) 0.9 0.7-1.6 [facility]2017-12-03 14:49:00 Test Item Value Reference Range Interpretation Comments AGAP (test code = AGAP) 10.6 10.0-20.0 [facility]2017-12-03 14:49:00 Test Item Value Reference Range Interpretation Comments Globulin (test code = Globulin) 4.1 2.7-4.2 [facility]2017-12-03 14:49:00 Test Item Value Reference Range Interpretation Comments B/C Ratio (test code = B/C Ratio) 23 6- [facility] HospitalCrmtzlrNYTCMYIAQC5121-50-43 14:49:00 Test Item Value Reference Range Interpretation Comments MCHC (test code = MCHC) 33.2 32.0-36.[address] [facility] HospitalEirbhhuGNKHWVWPIE6905-16-08 14:49:00 Test Item Value Reference Range Interpretation Comments Platelet (test code = Platelet) 136 133-[address] [facility] HospitalLplwgplGFQDPDFTAN5281-79-69 14:49:00 Test Item Value Reference Range Interpretation Comments RDW (test code = RDW) 14.5 11.5-14.5 [facility]2017-12-03 14:49:00 Test Item Value Reference Range Interpretation Comments B/C Ratio (test code = B/C Ratio) 23 6-[address] [facility] HospitalRbxvdjqJBHTZIZUZB5045-60-77 14:49:00 Test Item Value Reference Range Interpretation Comments MPV (test code = MPV) 7.0 7.4-10.[address] [facility] HospitalWuzbrxbGASJGECHTV4154-87-96 14:49:00 Test Item Value Reference Range Interpretation Comments WBC (test code = WBC) 4.8 3.7-10.[address] [facility] HospitalEohpgvwESLNXGPIFS8884-65-29 14:49:00 Test Item Value Reference Range Interpretation Comments MCH (test code = MCH) 28.2 pg 27.0-31.[address] [facility] HospitalGdkfpbsNXRPBHMNHB1557-67-03 14:49:00 Test Item Value Reference Range Interpretation Comments MCV (test code = MCV) 85.1 80.0-94.[address] [facility] HospitalXjcxkgaBIGCNHWXYI3254-99-66 14:49:00 Test Item Value Reference Range Interpretation Comments Hct (test code = Hct) 40.1 42.0-54.[address] [facility] HospitalUuexmfoAMENIHRPBY6869-29-45 14:49:00 Test Item Value Reference Range Interpretation Comments Hgb (test code = Hgb) 13.3 14.0-18.[address] [facility] HospitalNvbtiddRRDUZOAXPF1723-51-09 14:49:00 Test Item Value Reference Range Interpretation Comments RBC (test code = RBC) 4.71 4.70-6.[address] [facility] HospitalAdzsiqsEFNVAKJYCU1485-20-16 14:49:00 Test Item Value Reference Range Interpretation Comments Segs (test code = Segs) 52.6 45.0-75.[address] [facility] HospitalPtvhswsLKQUSZJYHH3316-77-67 14:49:00 Test Item Value Reference Range Interpretation Comments Monocytes (test code = Monocytes) 7.9 2.0-12.[address] [facility] HospitalXgtwkkbGMTGJLZTOA4084-29-03 14:49:00 Test Item Value Reference Range Interpretation Comments Lymphocytes (test code = Lymphocytes) 38.4 20.0-40.[address] [facility] HospitalUuqvlktIYZWCLFTOP9050-35-68 14:49:00 Test Item Value Reference Range Interpretation Comments MCHC (test code = MCHC) 33.2 32.0-36.0 [facility] HospitalCARDIAC ZPLXRJN0439-00-70 14:49:00 Test Item Value Reference Range Interpretation Comments Total CK (test code = Total CK) 371 12-[address] [facility] HospitalByxeetzFTFNUOCNJO9040-43-65 14:49:00 Test Item Value Reference Range Interpretation Comments Segs-Bands # (test code = Segs-Bands #) 2.5 1.5-8.[address] [facility] HospitalRbgzixlBUKQIUDNHF5786-53-64 14:49:00 Test Item Value Reference Range Interpretation Comments Monocytes # (test code 0.4 See_Comment [Aut omated message] The = Monocytes #) system which generated this result tra nsmitted reference range : <=0.8. The reference r robbie was not used to int erpret this result as normal/abnormal . [facility] HospitalScwugjsPWLKTZJJHU7454-19-16 14:49:00 Test Item Value Reference Range Interpretation Comments Eosinophils (test code = 0.7 See_Comment [A utomated message] The Eosinophils) system which ge nerated this result tra nsmitted reference range : <=4.0. The reference r robbie was not used to int erpret this result as normal/abnormal . [facility] HospitalTplssbyTEMITKXFOR0440-44-34 14:49:00 Test Item Value Reference Range Interpretation Comments Basophils (test code = 0.4 See_Comment [Aut omated message] The Basophils) system which ge nerated this result tra nsmitted reference range : <=1.0. The reference r robbie was not used to int erpret this result as normal/abnormal . [facility] HospitalNokqhyuGXXTIPAZBB1444-33-66 14:49:00 Test Item Value Reference Range Interpretation Comments Lymphocytes # (test code = Lymphocytes 1.9 1.0-5.5 #) [facility]UqyeaniYMAVJSNSNA6023-47-44 14:49:00 Test Item Value Reference Range Interpretation Comments Etoh (%) (test code = Etoh (%)) no gt [facility] AntonioBatuegsWWUUKSWKDG4157-56-81 14:49:00 Test Item Value Reference Range Interpretation Comments Ethanol Lvl (test code = Ethanol Lvl) no gt [place] [id number] 14:49:00 Test Item Value Reference Range Interpretation Comments Valproic Acid Lvl (test code = Valproic 79 50-100 Acid Lvl) [facility] HospitalJketwlhGJVNKGLLZM9997-00-62 14:49:00 Test Item Value Reference Range Interpretation Comments Platelet (test code = Platelet) 136 133-[address] [facility] HospitalSybiycoGRSNGZXNAG5145-03-01 14:49:00 Test Item Value Reference Range Interpretation Comments RDW (test code = RDW) 14.5 11.5-14.5 [facility]2017-12-03 14:49:00 Test Item Value Reference Range Interpretation Comments eGFR (test code = eGFR) [address] [facility] HospitalWhbuufhYJKQPLRGZB8373-72-74 14:49:00 Test Item Value Reference Range Interpretation Comments MPV (test code = MPV) 7.0 7.4-10.[address] [facility] HospitalUagmsezGYUFPIDTUO0842-30-75 14:49:00 Test Item Value Reference Range Interpretation Comments WBC (test code = WBC) 4.8 3.7-10.[address] [facility] HospitalVbrteozTIREHEKCDN9449-44-75 14:49:00 Test Item Value Reference Range Interpretation Comments MCH (test code = MCH) 28.2 pg 27.0-31.[address] [facility] HospitalIafrtpnPBIIINIBCR3435-40-91 14:49:00 Test Item Value Reference Range Interpretation Comments MCV (test code = MCV) 85.1 80.0-94.[address] [facility] HospitalBrlfabuMIMOOSMBOH4298-49-92 14:49:00 Test Item Value Reference Range Interpretation Comments Hct (test code = Hct) 40.1 42.0-54.[address] [facility] HospitalWudddebVNGUWHULCL8725-31-87 14:49:00 Test Item Value Reference Range Interpretation Comments Hgb (test code = Hgb) 13.3 14.0-18.[address] [facility] HospitalDpejuglOLNTDVBKLM1123-21-80 14:49:00 Test Item Value Reference Range Interpretation Comments RBC (test code = RBC) 4.71 4.70-6.[address] [facility] HospitalNyepnauNPKAGHWWCG7259-33-17 14:49:00 Test Item Value Reference Range Interpretation Comments Segs (test code = Segs) 52.6 45.0-75.[address] [facility] HospitalCddjdgsRGJQOXKYNH0753-34-19 14:49:00 Test Item Value Reference Range Interpretation Comments Monocytes (test code = Monocytes) 7.9 2.0-12.[address] [facility] HospitalCgtmenxTOLKDVRFKV5612-95-70 14:49:00 Test Item Value Reference Range Interpretation Comments Lymphocytes (test code = Lymphocytes) 38.4 20.0-40.0 [facility]2017-12-03 14:49:00 Test Item Value Reference Range Interpretation Comments BUN (test code = BUN) 19 7-[address] HospitalDzpcrvrDNHFGLVVUW1777-93-84 14:49:00 Test Item Value Reference Range Interpretation Comments Segs-Bands # (test code = Segs-Bands #) 2.5 1.5-8.[address] [facility] HospitalKgcukdkOKINZUTNVG7977-05-42 14:49:00 Test Item Value Reference Range Interpretation Comments Monocytes # (test code 0.4 See_Comment [Aut omated message] The = Monocytes #) system which generated this result tra nsmitted reference range : <=0.8. The reference r robbie was not used to int erpret this result as normal/abnormal . [facility] HospitalYbnaxerINYZTBFLTH5924-08-03 14:49:00 Test Item Value Reference Range Interpretation Comments Eosinophils (test code = 0.7 See_Comment [A utomated message] The Eosinophils) system which ge nerated this result tra nsmitted reference range : <=4.0. The reference r robbie was not used to int erpret this result as normal/abnormal . [facility] HospitalMnzrogcNFFVWORFLA6914-31-22 14:49:00 Test Item Value Reference Range Interpretation Comments Basophils (test code = 0.4 See_Comment [Aut omated message] The Basophils) system which ge nerated this result tra nsmitted reference range : <=1.0. The reference r robbie was not used to int erpret this result as normal/abnormal . [facility] HospitalPumjuocQLSAKXLPAG0145-10-74 14:49:00 Test Item Value Reference Range Interpretation Comments Lymphocytes # (test code = Lymphocytes 1.9 1.0-5.5 #) [place] [id number] 14:49:00 Test Item Value Reference Range Interpretation Comments Etoh (%) (test code = Etoh (%)) no gt [place] [id number] 14:49:00 Test Item Value Reference Range Interpretation Comments Ethanol Lvl (test code = Ethanol Lvl) no gt [place] 039027-12-03 14:49:00 Test Item Value Reference Range Interpretation Comments Valproic Acid Lvl (test code = Valproic 79 50-100 Acid Lvl) [facility]2017-12-03 14:49:00 Test Item Value Reference Range Interpretation Comments Glucose Lvl (test code = Glucose Lvl) 96 70-99 [facility]2017-12-03 14:49:00 Test Item Value Reference Range Interpretation Comments Creatinine Lvl (test code = Creatinine 0.84 0.50-1.40 Lvl) [facility]2017-12-03 14:49:00 Test Item Value Reference Range Interpretation Comments Sodium Lvl (test code = Sodium Lvl) 140 135-145 [facility]2017-12-03 14:49:00 Test Item Value Reference Range Interpretation Comments Potassium Lvl (test code = Potassium 3.6 3.5-5.1 Lvl) [facility]2017-12-03 14:49:00 Test Item Value Reference Range Interpretation Comments Bili Total (test code = Bili Total) 0.2 0.2-1.3 [facility]2017-12-03 14:49:00 Test Item Value Reference Range Interpretation Comments CO2 (test code = CO2) 24 24-32 [facility]2017-12-03 14:49:00 Test Item Value Reference Range Interpretation Comments Chloride Lvl (test code = Chloride Lvl) 109 95-109 [facility]2017-12-03 14:49:00 Test Item Value Reference Range Interpretation Comments Total Protein (test code = Total 7.6 6.4-8.4 Protein) [facility]2017-12-03 14:49:00 Test Item Value Reference Range Interpretation Comments Calcium Lvl (test code = Calcium Lvl) 8.6 8.5-10.5 [facility]2017-12-03 14:49:00 Test Item Value Reference Range Interpretation Comments Albumin Lvl (test code = Albumin Lvl) 3.5 3.5-5.0 [facility]2017-12-03 14:49:00 Test Item Value Reference Range Interpretation Comments ALT (test code = ALT) 14 See_Comment [Auto mated message] The system which ge nerated this result transmit christi reference range : <=65. The reference range was not used to interpr et this result as yvonne l/abnormal. [facility]2017-12-03 14:49:00 Test Item Value Reference Range Interpretation Comments Alk Phos (test code = Alk Phos) 74 39-136 [facility]2017-12-03 14:49:00 Test Item Value Reference Range Interpretation Comments AST (test code = AST) 15 See_Comment [Auto mated message] The system which ge nerated this result transmit christi reference range : <=37. The reference range was not used to interpr et this result as yvonne l/abnormal. [facility]2017-12-03 14:49:00 Test Item Value Reference Range Interpretation Comments A/G Ratio (test code = A/G Ratio) 0.9 0.7-1.6 [facility]2017-12-03 14:49:00 Test Item Value Reference Range Interpretation Comments AGAP (test code = AGAP) 10.6 10.0-20.0 [facility]2017-12-03 14:49:00 Test Item Value Reference Range Interpretation Comments Globulin (test code = Globulin) 4.1 2.7-4.2 [facility]2017-12-03 14:49:00 Test Item Value Reference Range Interpretation Comments B/C Ratio (test code = B/C Ratio) 23 6-[address] [facility] HospitalAxivfbfZXWTQMFDCT8212-60-79 14:49:00 Test Item Value Reference Range Interpretation Comments MCHC (test code = MCHC) 33.2 32.0-36.[address] [facility] HospitalCvsywkrGRTIYPCEJX6307-51-78 14:49:00 Test Item Value Reference Range Interpretation Comments Platelet (test code = Platelet) 136 133-[address] [facility] HospitalVilrcphLOVXXTAEZW9966-01-01 14:49:00 Test Item Value Reference Range Interpretation Comments RDW (test code = RDW) 14.5 11.5-14.[address] [facility]JvnlwcqHBSCBSTMWH2366-78-58 14:49:00 Test Item Value Reference Range Interpretation Comments MPV (test code = MPV) 7.0 7.4-10.[address] [facility] HospitalIxufkqzCUYJYCNYFP2027-90-22 14:49:00 Test Item Value Reference Range Interpretation Comments WBC (test code = WBC) 4.8 3.7-10.[address] [facility] HospitalQfvkyosFIYNTJYJEM9812-04-43 14:49:00 Test Item Value Reference Range Interpretation Comments MCH (test code = MCH) 28.2 pg 27.0-31.[address] [facility] HospitalFxaxqgfRPLLWTYJGS6714-09-99 14:49:00 Test Item Value Reference Range Interpretation Comments MCV (test code = MCV) 85.1 80.0-94.[address] [facility] HospitalPfwzwpdSCVJJJZSLX9487-22-12 14:49:00 Test Item Value Reference Range Interpretation Comments Hct (test code = Hct) 40.1 42.0-54.[address] [facility] HospitalRrzcnmbRNXCEKRRBL5909-51-02 14:49:00 Test Item Value Reference Range Interpretation Comments Hgb (test code = Hgb) 13.3 14.0-18.[address] [facility] HospitalNburvkbTLCJGYWSHH3555-15-10 14:49:00 Test Item Value Reference Range Interpretation Comments RBC (test code = RBC) 4.71 4.70-6.[address] [facility] HospitalDexldczLPEDTQEKYB3017-68-76 14:49:00 Test Item Value Reference Range Interpretation Comments Segs (test code = Segs) 52.6 45.0-75.[address] HospitalZddwxpzEGSVAQFDQQ4767-65-72 14:49:00 Test Item Value Reference Range Interpretation Comments Monocytes (test code = Monocytes) 7.9 2.0-12.[address] [facility] HospitalQogumsfWNOUUFPQSN2400-19-91 14:49:00 Test Item Value Reference Range Interpretation Comments Lymphocytes (test code = Lymphocytes) 38.4 20.0-40.[address] [facility] HospitalGonoaybDIZUDDPWYS2648-21-15 14:49:00 Test Item Value Reference Range Interpretation Comments Segs-Bands # (test code = Segs-Bands #) 2.5 1.5-8.[address] [facility] HospitalGppuhwcFEVWNWSQQU0768-22-54 14:49:00 Test Item Value Reference Range Interpretation Comments Monocytes # (test code 0.4 See_Comment [Aut omated message] The = Monocytes #) system which generated this result tra nsmitted reference range : <=0.8. The reference r robbie was not used to int erpret this result as normal/abnormal . [facility] HospitalCrpwpmuYVRQQGGSDS0533-84-11 14:49:00 Test Item Value Reference Range Interpretation Comments Eosinophils (test code = 0.7 See_Comment [A utomated message] The Eosinophils) system which ge nerated this result tra nsmitted reference range : <=4.0. The reference r robbie was not used to int erpret this result as normal/abnormal . [facility] HospitalJfdczjtENQGQRMYNJ5190-99-76 14:49:00 Test Item Value Reference Range Interpretation Comments Basophils (test code = 0.4 See_Comment [Aut omated message] The Basophils) system which ge nerated this result tra nsmitted reference range : <=1.0. The reference r robbie was not used to int erpret this result as normal/abnormal . [facility] HospitalBhycauaARRQTOWCUG1317-79-82 14:49:00 Test Item Value Reference Range Interpretation Comments Lymphocytes # (test code = Lymphocytes 1.9 1.0-5.5 #) [facility]KgtggasIKDNCJZWGK6494-40-76 14:49:00 Test Item Value Reference Range Interpretation Comments Etoh (%) (test code = Etoh (%)) no gt [facility] HospitalQrjxxgzRORCHSKPAE5151-52-55 14:49:00 Test Item Value Reference Range Interpretation Comments Ethanol Lvl (test code = Ethanol Lvl) no gt [facility] HospitalMgyajflJCCTTMVRXF6510-90-31 14:49:00 Test Item Value Reference Range Interpretation Comments Valproic Acid Lvl (test code = Valproic 79 50-100 Acid Lvl) [facility] Date/Time Note Provider Source 2023-07-02 [facility] 11:49:55-00:00 Routing to provider, controlled substance. Electronically signed by Laisha Cloud LVN a t 07/02/2023 11:52 AM CDT 2023-07-02 Formatting of this note might be differe nt from the original. Diana Faulkner [facility] 10:57:12-00:00 Staci Olmstead is a 53 year old male Patient's is calling as he is out of PHENob arbitaL 64.8 mg tablet [id number] - [address] [facility] Electronically signed by Diana Faulkner at 11:00 AM CDT 2023-06-22 Formatting of this note is different from the or iginal. [facility] 13:36:00-00:00 Refill Request: Requested Prescriptions Signed Prescriptions Disp Refills risperiDONE 1 mg tablet 60 tablet 0 Sig: TAKE 1 TABLET BY MOUTH TWICE A DAY NEEDED FOR ACUTE PSYCHOSIS OR AGGRESION Authorizing Provider: NANCY RICHARDS Ordering User: LAISHA CLOUD Last office visit: 05/29/24 Last filled on: 05/29/23 Next appointment date: 11/30/23 Refilled for 1 month then will need to f/u with psychiatrist for refills. Electronically signed by Laisha Cloud LVN a t 06/22/2023 1:41 PM CDT 2023-06-22 [facility] 10:00:06-00:00 Sent! 2023 Formatting of this note might be differe nt from the original. Lashae Bradford [facility] 09:52:19-00:00 Staci Olmstead is a 53 year old male Pt is calling to get an eta on referral. Pl ease advise. Electronically signed by Lashae Bradford at 2022 9:53 AM CDT 2023-06-15 [facility] 11:44:13-00:00 Routing to LEILANI Santamaria who pt TYE was wit h. Electronically signed by Laisha Cloud LVN a t 06/15/2023 11:45 AM CDT 2023-06-14 Formatting of this note might be differe nt from the original. Dena Koehler [facility] 16:20:31-00:00 Staci Olmstead is a 52 year old male Shy spouse calling to see if Dr. Neville is able to give patient a referral for Psych. pls call to advise, thanks. 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 SL: [id number] 2017-10-21 Study: Spine lumbar series DX 10/21/2017 8:40 AM [facility] 09:21:57-00:00 Patient Name: STACI OLMSTEAD MR: [id number] : 1970; Age: 47 years y/o Male [...] arthrosis without acute fracture or dislocation. SL: [id number] 2017-10-21 Study: Spine lumbar series DX 10/21/2017 8:40 AM [facility] 09:21:57-00:00 Patient Name: STACI OLMSTEAD MR: [id number] : 1970; Age: 47 years y/o Male [...] arthrosis without acute fracture or dislocation. SL: [id number] 2017-10-21 Study: Spine lumbar series DX 10/21/2017 8:40 AM [facility] 09:21:57-00:00 Patient Name: STACI OLMSTEAD MR: [id number] : 1970; Age: 47 years y/o Male [...] arthrosis without acute fracture or dislocation. SL: [id number] 2017-10-21 STUDY: Brain wo contrast CT 10/21/2017 8:40 AM [facility] 08:54:15-00:00 Ordering Physician: Diana Gonzalez NP Patient Name: STACI OLMSTEAD MR: [id number] : 1970; Age: 47 years y/o Male [...] ate atrophy without acute intracranial abnormality. SL: [id number] 2017-10-21 STUDY: Brain wo contrast CT 10/21/2017 8:40 AM [facility] 08:54:15-00:00 Ordering Physician: Diana Gonzalez NP Patient Name: STACI OLMSTEAD MR: [id number] : 1970; Age: 47 years y/o Male [...] ate atrophy without acute intracranial abnormality. SL: [id number] 2017-10-21 STUDY: Brain wo contrast CT 10/21/2017 8:40 AM [facility] 08:54:15-00:00 Ordering Physician: Diana Gonzalez NP Patient Name: STACI OLMSTEAD MR: [id number] : 1970; Age: 47 years y/o Male [...] ate atrophy without acute intracranial abnormality. SL: [id number] 2017-10-21 STUDY: Brain wo contrast CT 10/21/2017 8:40 AM CS T [facility] ER 08:54:15-00:00 Ordering Physician: Diana Gonzalez NP Patient Name: STACI OLMSTEAD MR: [id number] : 1970; Age: 47 years y/o Male [...] ate atrophy without acute intracranial abnormality. SL: [id number]"
--- NOTE | 2023-07-09 12:45 | ER ---
Nurse's Notes [facility] Name: Rajat Camacho Age: 53 yrs Sex: Male : 1970 Arrival Date: 07/09/2023 Time: 11:28 Bed DX5 Private MD: Diagnosis: Encounter for removal of sutures Presentation: 07/09 12:05 Chief complaint: Patient states: Here for suture removal. Ebola Screen: Patient denies ll1 travel to an Ebola-affected area in the 21 days before illness onset. Risk Assessment: Do you want to hurt yourself or someone else? Patient reports no desire to harm self or others. Onset of symptoms was June 30, 2023. 12:05 Method Of Arrival: Ambulatory ll1 12:05 Acuity: CARLIN 5 ll1 13:00 Coronavirus screen: At this time, the client does not indicate any symptoms associated jl7 with coronavirus-19. Initial Sepsis Screen: Does the patient have a suspected source of infection? No. Patient's initial sepsis screen is negative. Historical: - Allergies: 12:04 PENICILLINS; ll1 - PMHx: 12:04 Diabetes - NIDDM; epilepsy; Seizures; ll1 - PSHx: 12:04 Appendectomy; back; ll1 - Immunization history:: Adult Immunizations up to date. - Social history:: Smoking status: unknown. - Family history:: not pertinent. Assessment: 12:36 Reassessment: Dr. Duncan removing sutures at this time. Patient denies pain at this jl7 time. Pain: Denies pain. ED Course: 11:30 Patient arrived in ED. im 11:30 Tee Duncan MD is Attending Physician. [facility] 12:05 Triage completed. 1 12:05 Arm band placed on. ll1 12:35 Caty Morejon RN is Primary Nurse. jl7 13:01 No provider procedures requiring assistance completed. Patient did not have IV access jl7 during this emergency room visit. Administered Medications: No medications were administered Outcome: 12:44 Discharge ordered by . [facility] 13:01 Discharged to home ambulatory, with family. jl7 13:01 Condition: stable 13:01 Discharge instructions given to patient, Instructed on discharge instructions, follow up and referral plans. Demonstrated understanding of instructions, follow-up care. 13:02 Patient left the ED. jl7 Signatures: Tee Duncan MD MD cha Leal, Jahala, RN RN jl7 Wojciech Falk RN RN ll1 Kirti Wayne
--- NOTE | 2023-07-09 12:45 | EDPHYS ---
Physician Documentation [facility] Name: Rajat Camacho Age: 53 yrs Sex: Male : 1970 Arrival Date: 07/09/2023 Time: 11:28 Bed DX5 Private MD: Tee Colon HPI: 07/09 12:40 This 53 yrs old Male presents to ER via Ambulatory with complaints of Suture michi Removal. 12:40 The patient has beth on the left hirsch. Previous treatment: The patient was initially michi treated 10 day(s) ago. Sutures/beth progress: The patient has no c/o's. The wound is well-healing with no redness, swelling, discharge, or dehiscence reported. The patient has experienced similar episodes in the past, several times. Historical: - Allergies: 12:04 PENICILLINS; ll1 - PMHx: 12:04 Diabetes - NIDDM; epilepsy; Seizures; ll1 - PSHx: 12:04 Appendectomy; back; ll1 - Immunization history:: Adult Immunizations up to date. - Social history:: Smoking status: unknown. - Family history:: not pertinent. ROS: 12:40 Constitutional: Negative for fever, chills, and weight loss, Eyes: Negative for injury, michi pain, redness, and discharge, ENT: Negative for injury, pain, and discharge, Neck: Negative for injury, pain, and swelling, Cardiovascular: Negative for chest pain, palpitations, and edema, Respiratory: Negative for shortness of breath, cough, wheezing, and pleuritic chest pain, Abdomen/GI: Negative for abdominal pain, nausea, vomiting, diarrhea, and constipation, Back: Negative for injury and pain, : Negative for injury, bleeding, discharge, and swelling, MS/Extremity: Negative for injury and deformity, Neuro: Negative for headache, weakness, numbness, tingling, and seizure, Psych: Negative for depression, anxiety, suicide ideation, homicidal ideation, and hallucinations, Allergy/Immunology: Negative for hives, rash, and allergies, Endocrine: Negative for neck swelling, polydipsia, polyuria, polyphagia, and marked weight changes, Hematologic/Lymphatic: Negative for swollen nodes, abnormal bleeding, and unusual bruising. 12:40 Skin: Positive for laceration(s), of the left leg and left hirsch. Exam: 12:40 Constitutional: This is a well developed, well nourished patient who is awake, alert, michi and in no acute distress. Head/Face: Normocephalic, atraumatic. Eyes: Pupils equal round and reactive to light, extra-ocular motions intact. Lids and lashes normal. Conjunctiva and sclera are non-icteric and not injected. Cornea within normal limits. Periorbital areas with no swelling, redness, or edema. ENT: Nares patent. No nasal discharge, no septal abnormalities noted. Tympanic membranes are normal and external auditory canals are clear. Oropharynx with no redness, swelling, or masses, exudates, or evidence of obstruction, uvula midline. Mucous membranes moist. Neck: Trachea midline, no thyromegaly or masses palpated, and no cervical lymphadenopathy. Supple, full range of motion without nuchal rigidity, or vertebral point tenderness. No Meningismus. Chest/axilla: Normal chest wall appearance and motion. Nontender with no deformity. No lesions are appreciated. Cardiovascular: Regular rate and rhythm with a normal S1 and S2. No gallops, murmurs, or rubs. Normal PMI, no JVD. No pulse deficits. Respiratory: Lungs have equal breath sounds bilaterally, clear to auscultation and percussion. No rales, rhonchi or wheezes noted. No increased work of breathing, no retractions or nasal flaring. Abdomen/GI: Soft, non-tender, with normal bowel sounds. No distension or tympany. No guarding or rebound. No evidence of tenderness throughout. Back: No spinal tenderness. No costovertebral tenderness. Full range of motion. Male : Normal genitalia with no discharge or lesions. Skin: Warm, dry with normal turgor. Normal color with no rashes, no lesions, and no evidence of cellulitis. Neuro: Awake and alert, GCS 15, oriented to person, place, time, and situation. Cranial nerves II-XII grossly intact. Motor strength 5/5 in all extremities. Sensory grossly intact. Cerebellar exam normal. Normal gait. Psych: Awake, alert, with orientation to person, place and time. Behavior, mood, and affect are within normal limits. 12:40 Musculoskeletal/extremity: Extremities: grossly normal except: pain, tenderness, ROM: no acute changes, Circulation is intact in all extremities. Sensation intact. MDM: 11:30 Patient medically screened. [facility] 07/09 12:39 Order name: Suture Removal; Complete Time: 12:47 michi 07/09 12:39 Order name: Wound Care; Complete Time: 12:47 [facility] Administered Medications: No medications were administered Disposition Summary: 07/09/23 12:44 Discharge Ordered Location: Home michi Problem: new michi Symptoms: have improved michi Condition: Stable michi Diagnosis - Encounter for removal of sutures michi Followup: [facility] - With: Private Physician - When: 2 - 3 days - Reason: Recheck today's complaints, Continuance of care, Re-evaluation by your physician Discharge Instructions: - Discharge Summary Sheet [facility] - How to Change Your Wound Dressing michi - Laceration Care, Adult michi - Suture Removal, Care After michi Forms: - Medication Reconciliation Form [facility] - Thank You Letter michi - Antibiotic Education michi - Prescription Opioid Use michi - Patient Portal Instructions [facility] - Leadership Thank You Letter michi Signatures: Tee Duncan MD MD cha Leal, Jahala RN RN jl7 Wojciech Falk RN RN ll1
== END 2023-07-09 13:02 | disposition home or self-care (01) ==
LOC: ER 11:28
DX: Z48.02 Encounter for removal of sutures (principal)
CPT/HCPCS: 99282

== ENCOUNTER 2024-02-24 18:16 | Emergency (ER) | payer OTHER ==
--- NOTE | 2024-02-24 19:09 | RAD REPORT ---
EXAM DESCRIPTION: CT - Head Brain Wo Cont - 02/24/2024 6:59 pm CLINICAL HISTORY: Mental status change;Seizure COMPARISON: Head Brain Wo Cont dated 08/25/2023; Head Brain Wo Cont dated 08/14/2023 TECHNIQUE: All CT scans are performed using dose optimization technique as appropriate and may inclu de automated exposure control or mA/KV adjustment according to patient size. FINDINGS: No intracranial hemorrhage, hydrocephalus or extra-axial fluid collection.No areas of brai n edema or evidence of midline shift. Trace right maxillary sinus thickening. The calvarium is intact. IMPRESSION: No acute intracranial abnormality.
--- NOTE | 2024-02-24 19:23 | RAD REPORT ---
EXAM DESCRIPTION: RAD - Chest Single View - 02/24/2024 7:16 pm CLINICAL HISTORY: altered mental status COMPARISON: <Comparisons> FINDINGS: Lines: None. Lungs: No evidence of edema or pneumonia. Pleural: No significant pleural effusions or pneumothorax. Cardiac: The heart size is within normal limits. Mediastinum: Within normal limits. Bones: No acute fractures. Other: None IMPRESSION: No acute cardiopulmonary disease.
[2024-02-24 19:28] LABS: Absolute Lymphocytes (CBC) 2.2 K/uL (0.7-4.9); Absolute Monocytes 0.4 K/uL (0.1-1.3); Basophils % 0.3 % (0-1.3); Eosinophils % 0.3 % (0-4.4); Hematocrit 40.6 % (39.6-49.0); Hemoglobin 13.2 g/dL (13.6-17.9); Lymphocytes % 28.4 % (15.3-44.8); MCH 29.6 pg (27.0-35.0); MCHC 32.4 g/dL (32.0-36.0); MCV 91.3 fL (80-100); MPV 7.4 fL (7.6-11.3); Monocytes % 5.5 % (3.3-12.3); Neutrophils % 65.5 % (41.7-73.7); Nucleated Red Blood Cells % 0.1 % (0-0); Platelets 164 thou/uL (152-406); RBC Red Blood Cell Count 4.45 M/uL (4.33-5.43); Red Cell Distribution Width 14.9 % (12.1-15.2)
[2024-02-24 19:46] LABS: Specific Gravity 1.029 (1.005-1.030); Sqamous Epithelial <5 /HPF (None Seen); Urine Bacteria <20 /HPF (<20); Urine Bilirubin NEGATIVE (Negative); Urine Blood Negative (Negative); Urine Clarity Clear (Clear); Urine Color Light-Yellow (Yellow); Urine Glucose 1+ (Negative); Urine Ketones 1+ (Negative); Urine Micro Reflex YN NO BILL MICROSCOPIC; Urine Mucus Slight /HPF (None Seen); Urine Nitrite NEGATIVE (Negative); Urine Protein TRACE (Negative); Urine RBC <5 /HPF (None Seen); Urine Urobilinogen Normal (Normal); Urine WBC <5 /HPF (<5); Urine pH 6.5 (5.0-7.0)
[2024-02-24 19:52] LABS: PT Prothrombin Time 11.5 SECONDS (9.5-12.5); Protime INR 1.05
[2024-02-24 19:54] LABS: Albumin 3.3 g/dL (3.4-5.0); Albumin/Globulin Ratio 0.8 (1.1-1.8); Anion Gap 10.8 mEq/L (5.0-15.0); Bilirubin Total 0.4 mg/dL (0.2-1.0); Globulin 4.2 g/dL (2.3-3.5); Potassium 3.8 mEq/L (3.5-5.1); Protein, Total 7.5 g/dL (6.4-8.2)
[2024-02-24 20:01] LABS: Barbiturates POSITIVE (NEGATIVE); Benzodiazepines NEGATIVE (NEGATIVE); Cocaine NEGATIVE (NEGATIVE); METHAMPHETAM NEGATIVE (NEGATIVE); Methadone NEGATIVE (NEGATIVE); Opiates NEGATIVE (NEGATIVE); Phencyclidine NEGATIVE (NEGATIVE); THC Cannibis NEGATIVE (NEGATIVE)
[2024-02-24] MEDS ORDERED: LORazepam 2 MG/ML VIAL ONE ×2 (20:10→20:55)
[2024-02-24] MEDS ORDERED: NA CHLORIDE 0.9% 1,000 ML ONE ×2 (20:10→21:04)
[2024-02-24] MEDS ORDERED: NA CHLORIDE 0.9% 100 ML ONE (20:53)
[2024-02-24] MEDS ORDERED: FOSPHENYTOIN PE 500 MG/10 ML VIAL ONE (20:53)
--- NOTE | 2024-02-24 21:04 | EDPHYS ---
Physician Documentation [facility] Name: Rajat Camacho Age: 53 yrs Sex: Male : 1970 Arrival Date: 02/24/2024 Time: 18:16 Bed 7 Private MD: John Subramanian ED Physician Tee Duncan HPI: 02/23 18:45 This 53 yrs old Male presents to ER via Wheelchair with complaints of Seizure. cp 18:45 The patient presents with a history of multiple seizures, a total of 5, the episode(s) cp was witnessed, by family, . Character of seizure(s): Loss of consciousness: the patient experienced loss of consciousness, Incontinence: none. Seizure onset: this morning. Context: occurred at home, Contributing factors: missed dose of seizure medication over past 1-2 weeks. reports patient ran out of Carbamazepine and has not had medication refilled. 18:45 Seizure Hx: known seizure disorder. Associated injury: Head/face: forehead, contusion. cp 18:45 EMS care: none. cp 18:45 Current symptoms: confusion. cp Historical: - Allergies: 18:57 PENICILLINS; iw - Home Meds: 21:17 Topamax 200 mg oral tablet 2 times per day [Active]; phenobarbital 64.8 mg oral tablet vc1 daily [Active]; clonazepam 1 mg oral tablet 3 times per day [Active]; Janumet 50-1,000 mg oral tablet 2 times per day [Active]; risperidone 0.5 mg oral tablet daily [Active]; Depakote ER 250 mg Oral Tablet, Extended Release 24 hr 1000 mg am, 1000 mg noon, 1250 mg night [Active]; Depakote Oral [Active]; - PMHx: 18:57 Seizures; epilepsy; Diabetes - NIDDM; iw - PSHx: 18:57 Appendectomy; iw 21:17 back; vc1 - Immunization history:: Adult Immunizations unknown. - Infectious Disease History:: Denies. - Social history:: Smoking status: unknown. ROS: 18:50 Constitutional: Negative for body aches, chills, fever, poor PO intake, cp 18:50 Respiratory: Negative for cough, shortness of breath, wheezing, cp 18:50 Eyes: Negative for injury, pain, redness, and discharge, cp 18:50 ENT: Negative for drainage from ear(s), ear pain, sore throat, difficulty swallowing, difficulty handling secretions, 18:50 Cardiovascular: Negative for chest pain, palpitations, 18:50 Abdomen/GI: Negative for abdominal pain, vomiting, diarrhea, constipation, 18:50 : Negative for urinary symptoms, 18:50 Neuro: Positive for altered mental status, history of multiple seizures, Negative for headache, 18:50 All other systems are negative, Exam: 18:55 Constitutional: The patient appears in no acute distress, alert, awake, cp non-diaphoretic, non-toxic, well developed, well nourished, 18:55 Head/face: Noted is contusion, that is superficial, of the forehead, cp 18:55 Eyes: Periorbital structures: appear normal, Pupils: equal, round, and reactive to light and accomodation, Extraocular movements: intact throughout, Conjunctiva: normal, no exudate, no injection, Sclera: no appreciated abnormality, Lids and lashes: appear normal, bilaterally, 18:55 ENT: External ear(s): are unremarkable, Nose: is normal, Mouth: Lips: moist, Oral mucosa: pink and intact, moist, Posterior pharynx: is normal, airway is patent, no erythema, no exudate, 18:55 Neck: C-spine: vertebral tenderness, is not appreciated, crepitus, is not appreciated, ROM/movement: is normal, is supple, without pain, no range of motions limitations, no meningismus, no nuchal rigidity, 18:55 Chest/axilla: Inspection: normal, Palpation: is normal, no crepitus, no tenderness, 18:55 Cardiovascular: Rate: tachycardic, Rhythm: regular, Edema: is not appreciated, JVD: is not appreciated, 18:55 Respiratory: the patient does not display signs of respiratory distress, Respirations: normal, no use of accessory muscles, no retractions, labored breathing, is not present, Breath sounds: are clear throughout, no decreased breath sounds, no stridor, no wheezing, 18:55 Abdomen/GI: Inspection: abdomen appears normal, Palpation: abdomen is soft and non-tender, in all quadrants, 18:55 Back: pain, is absent, ROM is normal, 18:55 Neuro: Orientation: to person, Mentation: able to follow commands, slow to respond, Motor: moves all fours, no focal deficits, Sensation: no obvious gross deficits, 20:07 ECG was reviewed by the Attending Physician. cp Vital Signs: 18:30 BP 152 / 83; Pulse 109; Resp 18; Temp 99.7(O); Pulse Ox 96% ; Weight 104.33 kg; Height nj1 6 ft. 2 in. ; 18:48 BP 142 / 84; Pulse 113; Resp 17; Pulse Ox 98% on R/A; ss 20:05 BP 134 / 76; Pulse 93; Pulse Ox 95% on R/A; tm6 20:42 BP 125 / 69; Pulse 93; Resp 24; Pulse Ox 95% on R/A; vc1 21:24 BP 115 / 65; Pulse 98; Resp 23 S; Pulse Ox 97% on 2 lpm NC; vc1 21:45 BP 114 / 67; Pulse 93; Resp 21; Pulse Ox 98% ; vc1 22:59 BP 136 / 84; Pulse 88; Resp 20; Pulse Ox 99% on 2 lpm NC; tm6 18:30 Body Mass Index 29.53 (104.33 kg, 187.96 cm) nj1 Marie Coma Score: 21:24 Eye Response: none(1). Motor Response: none(1). Verbal Response: none(1). Total: 3. vc1 MDM: 18:28 Patient medically screened. cp 21:05 Data reviewed: vital signs, nurses notes, lab test result(s), EKG, radiologic studies, cp CT scan, and as a result, I will transfer patient for neurology consult and repeated seizures. 21:05 Counseling: I had a detailed discussion with the patient and/or guardian regarding the cp historical points, exam findings, and any diagnostic results supporting the discharge/admit diagnosis, lab results, radiology results. Response to treatment: the patient's symptoms have mildly improved after treatment. 02/23 18:39 Order name: UDS; Complete Time: 20:21 cp 02/23 20:21 Interpretation: Normal except: QUENTIN POSITIVE. cp 02/23 18:39 Order name: Blood Culture Adult (2) cp 02/23 18:39 Order name: CBC with Diff; Complete Time: 19:51 cp 02/23 19:51 Interpretation: Normal except: HGB 13.2; MPV 7.4. cp 02/23 18:39 Order name: CMP; Complete Time: 19:59 cp 02/23 19:59 Interpretation: Normal except: CL 108; GLUC 156; BUN 23; GFR 85; AST 45; ALB 3.3; GLOB cp 4.2; A/G 0.8. 04/ 18:39 Order name: Lactate w/ 2H reflex if indic.; Complete Time: 20:01 cp 02/23 20:01 Interpretation: Reviewed. cp 02/23 18:39 Order name: Protime (+inr); Complete Time: 19:59 cp 02/23 18:39 Order name: Ptt, Activated; Complete Time: 19:59 cp 02/23 18:39 Order name: Urinalysis W/Microscopic; Complete Time: 19:51 cp 02/23 19:52 Interpretation: Normal except: UGLUC 1+; UKET 1+; UPROT TRACE. cp 02/23 18:52 Order name: Glucose, Ancillary Testing; Complete Time: 19:51 EDMS 02/23 19:45 Order name: Glucose, Ancillary Testing; Complete Time: 19:51 EDMS 02/23 22:58 Order name: Lactate Sepsis 2 HR Follow-up EDMS 02/23 18:39 Order name: CT Head Brain wo Cont; Complete Time: 19:51 cp 02/23 20:22 Interpretation: Report reviewed. 02/23 18:39 Order name: Chest Single View XRAY; Complete Time: 19:51 cp 02/23 18:39 Order name: Accucheck Blood Glucose; Complete Time: 20:08 cp 02/23 18:39 Order name: Accucheck; Complete Time: 19:33 cp 02/23 18:39 Order name: Cardiac monitoring; Complete Time: 20:06 cp 02/23 18:39 Order name: EKG - Nurse/Tech; Complete Time: 20:06 cp 02/23 18:39 Order name: IV Saline Lock - Large Bore; Complete Time: 19:33 cp 02/23 18:39 Order name: Labs collected and sent; Complete Time: 19:33 cp 02/23 18:39 Order name: O2 Per Protocol; Complete Time: 19:33 cp 02/23 18:39 Order name: O2 Sat Monitoring; Complete Time: 19:33 cp 02/23 18:39 Order name: Vital Signs; Complete Time: 19:33 cp EC:07 Rate is 96 beats/min. Rhythm is regular. FL interval is normal. QRS interval is normal. cp QT interval is normal. T waves are Inverted in leads I, aVL. Interpreted by me. Reviewed by me. Administered Medications: 20:15 Drug: NS 0.9% IV 1000 ml IV at 1 bolus Per protocol; 1000 mL bolus Route: IV; Rate: 1 tm6 bolus; Site: right wrist; 21:26 Follow up: IV Status: Completed infusion; IV Intake: 1000ml vc1 20:49 Drug: Ativan IVP 1 mg IVP once Route: IVP; Site: right antecubital; vc1 21:27 Follow up: Response: RASS: Moderate sedation (-3) vc1 21:01 Drug: Fosphenytoin IVPB 1 grams IVPB once; (mix in 50 to 100mL NS) Route: IVPB; Site: vc1 right antecubital; 21:27 Follow up: IV Status: Completed infusion; IV Intake: 100ml vc1 21:01 Drug: Ativan IVP 2 mg IVP once Route: IVP; Site: right antecubital; vc1 21:28 Follow up: Response: RASS: Moderate sedation (-3) vc1 21:16 Drug: NS 0.9% IV 1000 ml IV at 1 bolus Per protocol; 1000 mL bolus Route: IV; Rate: 1 vc1 bolus; Site: right antecubital; 22:16 Follow up: IV Status: Completed infusion; IV Intake: 1000ml vc1 Disposition Summary: 02/24/24 21:04 Transfer Ordered Notes: Transfer Location: Other Acute Care Facility cp Reason: Higher level of care cp Condition: Stable cp Problem: chronic cp Symptoms: have improved cp Accepting Physician: Doctor(02/24/24 23:12) vc1 Diagnosis - Other seizures cp Forms: - Medication Reconciliation Form cp - SBAR form cp Signatures: Dispatcher [employer] EDEly Newby RN RN iw Page, Corey, PA PA cp Calcote, Vanessa, RN RN vc1 Jennifer Hicks RN RN nj1 Kaitlynn Martin RN RN tm6 Corrections: (The following items were deleted from the chart) 18:39 18:39 URINE DRUG SCREEN+UC.LAB.BRZ ordered. EDMS EDMS 18:39 18:39 BLOOD CULTURE*+BA.LAB.BRZ ordered. EDMS EDMS 18:39 18:39 CBC+H.LAB.BRZ ordered. EDMS EDMS 18:39 18:39 COMPREHENSIVE METABOLIC PANEL+C.LAB.BRZ ordered. EDMS EDMS 18:39 18:39 LACTATE+C.LAB.BRZ ordered. EDMS EDMS 18:40 18:39 PROTIME (+INR)+COAG.LAB.BRZ ordered. EDMS EDMS 18:40 18:39 PTT, ACTIVATED+COAG.LAB.BRZ ordered. EDMS EDMS 18:40 18:39 Urinalysis W/Microscopic+U.LAB.BRZ ordered. EDMS EDMS 18:40 18:40 Chest Single View+RAD.RAD.BRZ ordered. EDMS EDMS 23:12 21:04 Doctor cp vc1
--- NOTE | 2024-02-24 21:04 | ER ---
Nurse's Notes [facility] Name: Rajat Camacho Age: 53 yrs Sex: Male : 1970 Arrival Date: 02/24/2024 Time: 18:16 Bed 7 Private MD: John Subramanian Diagnosis: Other seizures Presentation: 02/23 18:29 Coronavirus screen: At this time, the client does not indicate any symptoms associated nj1 with coronavirus-19. 18:29 Ebola Screen: Patient denies travel to an Ebola-affected area in the 21 days before nj1 illness onset. 18:59 Chief complaint: Parent and/or Guardian states: has been off his seizure medicine X 3 iw weeks , has been having seizures off and on since then, today he had five seizures. Initial Sepsis Screen: Does the patient meet any 2 criteria? No. Patient's initial sepsis screen is negative. Does the patient have a suspected source of infection?. 18:59 Method Of Arrival: Wheelchair iw 19:00 Coronavirus screen: At this time, the client does not indicate any symptoms associated iw with coronavirus-19. Ebola Screen: Patient negative for fever greater than or equal to 101.5 degrees Fahrenheit, and additional compatible Ebola Virus Disease symptoms Patient denies exposure to infectious person. Patient denies travel to an Ebola-affected area in the 21 days before illness onset. No symptoms or risks identified at this time. Risk Assessment: Do you want to hurt yourself or someone else? Patient reports no desire to harm self or others. Onset of symptoms was February 06, 2024. 19:00 Acuity: CARLIN 2 iw Historical: - Allergies: 18:57 PENICILLINS; iw - Home Meds: 21:17 Topamax 200 mg oral tablet 2 times per day [Active]; phenobarbital 64.8 mg oral tablet vc1 daily [Active]; clonazepam 1 mg oral tablet 3 times per day [Active]; Janumet 50-1,000 mg oral tablet 2 times per day [Active]; risperidone 0.5 mg oral tablet daily [Active]; Depakote ER 250 mg Oral Tablet, Extended Release 24 hr 1000 mg am, 1000 mg noon, 1250 mg night [Active]; Depakote Oral [Active]; - PMHx: 18:57 Seizures; epilepsy; Diabetes - NIDDM; iw - PSHx: 18:57 Appendectomy; iw 21:17 back; vc1 - Immunization history:: Adult Immunizations unknown. - Infectious Disease History:: Denies. - Social history:: Smoking status: unknown. Screenin:55 [facility] ED Fall Risk Assessment (Adult) History of falling in the last 3 months, iw including since admission Yes- fall prone (multiple falls) (3 pts) Confusion or Disorientation Yes (5 pts) Intoxicated or Sedated No (0 pts) Impaired Gait Yes (1 pt) Mobility Assist Device Used Yes (1 pt) Altered Elimination Yes (1 pt) Score/Fall Risk Level. Abuse screen: Denies threats or abuse. Denies injuries from another. Nutritional screening: No deficits noted. Tuberculosis screening: No symptoms or risk factors identified. Assessment: 18:54 General: Appears in no apparent distress. Behavior is calm, cooperative. Pain: iw Complains of pain in head. Neuro: Level of Consciousness is awake, alert, obeys commands, Oriented to person, place, Moves all extremities. Cardiovascular: Patient's skin is warm and dry. Respiratory: Respiratory effort is even, unlabored, Respiratory pattern is regular, symmetrical. GI: Abdomen is non-distended. Derm: Skin is Wound noted face. Musculoskeletal: Range of motion: intact in all extremities. 19:00 General: Appears in no apparent distress. Behavior is calm, cooperative. Pain: Denies vc1 pain. Neuro: Level of Consciousness is awake, alert, obeys commands, Oriented to person, place, Moves all extremities. Cardiovascular: Patient's skin is warm and dry. Respiratory: Respiratory effort is even, unlabored, Respiratory pattern is symmetrical, tachypnea. GI: Abdomen is round non-distended. : No deficits noted. No signs and/or symptoms were reported regarding the genitourinary system. EENT: No deficits noted. No signs and/or symptoms were reported regarding the EENT system. Derm: Skin is pink, warm \T\ dry. Wound noted face. Musculoskeletal: Range of motion: intact in all extremities. 20:05 Reassessment: Patient and/or family updated on plan of care and expected duration. Pain tm6 level reassessed. Patient is alert, oriented x 3, equal unlabored respirations, skin warm/dry/pink. 20:42 Reassessment: No changes from previously documented assessment. Patient and/or family vc1 updated on plan of care and expected duration. Pain level reassessed. Patient is alert, oriented x 3, equal unlabored respirations, skin warm/dry/pink. 20:48 Neuro: Seizure activity noted at this time. Type of seizure: tonic-clonic seizure. vc1 Seizure lasted approximately 1 minutes. Patient is post-ictal at this time. 20:48 Respiratory: O2 at 85% room air. vc1 21:55 Reassessment: Patient and/or family updated on plan of care and expected duration. Pain vc1 level reassessed. Neuro: Level of Consciousness is post ictal. 23:06 Reassessment: Patient and/or family updated on plan of care and expected duration. Pain vc1 level reassessed. Patient is alert, oriented x 3, equal unlabored respirations, skin warm/dry/pink. Patient states symptoms have improved. Neuro: Frankel Agitation-Sedation Scale (RASS): -1 Drowsy Level of Consciousness is awake, alert, obeys commands, Oriented to person, place. Vital Signs: 18:30 BP 152 / 83; Pulse 109; Resp 18; Temp 99.7(O); Pulse Ox 96% ; Weight 104.33 kg; Height nj1 6 ft. 2 in. ; 18:48 BP 142 / 84; Pulse 113; Resp 17; Pulse Ox 98% on R/A; ss 20:05 BP 134 / 76; Pulse 93; Pulse Ox 95% on R/A; tm6 20:42 BP 125 / 69; Pulse 93; Resp 24; Pulse Ox 95% on R/A; vc1 21:24 BP 115 / 65; Pulse 98; Resp 23 S; Pulse Ox 97% on 2 lpm NC; vc1 21:45 BP 114 / 67; Pulse 93; Resp 21; Pulse Ox 98% ; vc1 22:59 BP 136 / 84; Pulse 88; Resp 20; Pulse Ox 99% on 2 lpm NC; tm6 18:30 Body Mass Index 29.53 (104.33 kg, 187.96 cm) nj1 Marie Coma Score: 21:24 Eye Response: none(1). Motor Response: none(1). Verbal Response: none(1). Total: 3. vc1 ED Course: 18:18 Patient arrived in ED. rg4 18:18 John Subramanian DO is Private Physician. rg4 18:28 Tee Wilson PA is PHCP. cp 18:28 Tee Duncan MD is Attending Physician. cp 18:30 Arm band placed on right wrist. nj1 18:56 Inserted saline lock: 22 gauge in right wrist, using aseptic technique. Blood collected.iw 18:56 Initial lab(s) drawn, by me, sent to lab. First set of blood cultures drawn by me. iw 19:00 CT Head Brain wo Cont In Process Unspecified. EDMS 19:00 Triage completed. iw 19:00 Seizure precautions initiated. vc1 19:18 Chest Single View XRAY In Process Unspecified. EDMS 19:25 Blood Culture Adult (2) Sent. oe 19:25 Second set of blood cultures drawn. oe 19:33 Kaitlynn Martin, ARIANNA is Primary Nurse. tm6 19:33 Urinalysis W/Microscopic Sent. tm6 20:05 EKG done, by ED staff, reviewed by Tee OZUNA. tm6 20:48 Oxygen administration via nasal cannula \T\ 2L/min. vc1 21:[address] [facility] transfer center to start transfer. talked to Meaghan. sp 22:[address] Efe Aguilar accepted to [facility] [address] [place] [address] Flash KELLER TC admin sp approval [address] [place] [address] [address][id number] report number [phone] fax number [phone]. 22:50 called [facility] for transfer to [facility] talked to Scott. sp 23:06 No provider procedures requiring assistance completed. Patient transferred, IV remains vc1 in place. 23:07 Provided Education on: Fall risk. vc1 Administered Medications: 20:15 Drug: NS 0.9% IV 1000 ml IV at 1 bolus Per protocol; 1000 mL bolus Route: IV; Rate: 1 tm6 bolus; Site: right wrist; 21:26 Follow up: IV Status: Completed infusion; IV Intake: 1000ml vc1 20:49 Drug: Ativan IVP 1 mg IVP once Route: IVP; Site: right antecubital; vc1 21:27 Follow up: Response: RASS: Moderate sedation (-3) vc1 21:01 Drug: Fosphenytoin IVPB 1 grams IVPB once; (mix in 50 to 100mL NS) Route: IVPB; Site: vc1 right antecubital; 21:27 Follow up: IV Status: Completed infusion; IV Intake: 100ml vc1 21:01 Drug: Ativan IVP 2 mg IVP once Route: IVP; Site: right antecubital; vc1 21:28 Follow up: Response: RASS: Moderate sedation (-3) vc1 21:16 Drug: NS 0.9% IV 1000 ml IV at 1 bolus Per protocol; 1000 mL bolus Route: IV; Rate: 1 vc1 bolus; Site: right antecubital; 22:16 Follow up: IV Status: Completed infusion; IV Intake: 1000ml vc1 Medication: 20:05 VIS not applicable for this client. tm6 Intake: 21:26 IV: 1000ml; Total: 1000ml. vc1 21:27 IV: 100ml; Total: 1100ml. vc1 22:16 IV: 1000ml; Total: 2100ml. vc1 Outcome: 21:04 ER care complete, transfer ordered by . cp 23:06 Transferred by [facility] to [facility], Transfer form completed. vc1 X-rays sent w/ patient. 23:06 Condition: stable 23:06 Instructed on the need for transfer, medication usage, 23:12 Patient left the ED. vc1 Signatures: Dispatcher [employer] EDMS Anne Steinberg Irene, RN ARIANNA Ayleen Traore RN RN ss Page, Corey, PA PA cp Garcia, Rubi rg4 Adrien Barron oe Mel Campo RN ARIANNA 1 Jennifer Hicks RN ARIANNA tx1 Kaitlynn Martin RN RN 6 Corrections: (The following items were deleted from the chart) 19:04 19:03 Arm band placed on right wrist. nj1 nj1 19:43 19:33 BLOOD CULTURE*+BA.LAB.BRZ drawn and sent. [facility] oe 21:23 21:22 Neuro: Seizure activity noted at this time. Type of seizure: tonic-clonic vc1 seizure. Seizure lasted approximately 1 minutes. Patient is post-ictal at this time. vc1 22:57 22:50 called [facility] for transfer to [facility] talked to Brianna. toya pittman
[2024-02-25 05:51] VITALS: BP 136/84; TEMP 99.7; O2SAT 99
--- NOTE | 2024-02-25 12:41 | EKG ---
Test Date: 2024-02-24 Test Time: 20:00:35 Threading Machine Operator: DANIEL MEASUREMENT RESULTS: Intervals: Rate: 96 NH: 116 QRSD: 82 QT: 338 QTc: 427 [place]: P: 71 NH: 116 QRS: 66 T: 148 INTERPRETIVE STATEMENTS: Normal sinus rhythm T wave abnormality, consider inferolateral ischemia Abnormal ECG Compared to ECG 08/25/2023 16:53:23 T-wave abnormality now present Possible ischemia now present Electronically Signed On 02-25-24 12:40:09 CDT by Miller Rubalcava
== END 2024-02-24 23:12 ==
LOC: ER 18:16
DX: G40.89 Other seizures (principal); E11.9 Type 2 diabetes mellitus without complications; Z88.0 Allergy status to penicillin
CPT/HCPCS: 96365; 96361; 93005; 87040 ×2; 85025; 81001; 36415; 85610; 82947 ×2; 83605 ×2; 85730; 80053; 80307; 70450; 71045; 96375; 99285; Q2009; J7030 ×2

== ENCOUNTER 2024-11-23 18:05 | Inpatient (IN) | payer OTHER ==
[2024-11-23 19:09] LABS: Absolute Monocytes 0.3 K/uL (0.1-1.3); Absolute Neutrophil 2.5 K/uL (1.8-8.0); Basophils % 0.5 % (0-1.3); Eosinophils % 0.2 % (0-4.4); Hematocrit 38.5 % (39.6-49.0); Hemoglobin 12.7 g/dL (13.6-17.9); Lymphocytes % 24.8 % (15.3-44.8); MCH 31.3 pg (27.0-35.0); MCV 94.7 fL (80-100); Monocytes % 8.2 % (3.3-12.3); Neutrophils % 66.3 % (41.7-73.7); Nucleated Red Blood Cells % 0.2 % (0-0); Platelets 125 thou/uL (152-406); RBC Red Blood Cell Count 4.06 M/uL (4.33-5.43); Red Cell Distribution Width 14.8 % (12.1-15.2)
[2024-11-23 19:16] LABS: PT Prothrombin Time 12.1 SECONDS (9.4-12.5); Protime INR 1.08
[2024-11-23] MEDS ORDERED: NA CHLORIDE 0.9% 1,000 ML ONE (19:27)
[2024-11-23 19:30] LABS: ALT/SGPT 34 U/L (16-61); AST/SGOT 60 U/L (15-37); Albumin 2.8 g/dL (3.4-5.0); Albumin/Globulin Ratio 0.6 (1.1-1.8); Alkaline Phosphatase 83 U/L (45-117); Anion Gap 11.9 mEq/L (5.0-15.0); BUN Blood Urea Nitrogen 15 mg/dL (7-18); Bicarbonate 23 mEq/L (21-32); Bilirubin Direct < 0.2 mg/dL (0-0.2); Bilirubin Indirect, Calculated 0.2 mg/dL (0.2-0.8); Bilirubin Total 0.4 mg/dL (0.2-1.0); Globulin 4.7 g/dL (2.3-3.5); Glomerular Filtration Rate 71 ml/min (=/>90); Magnesium 1.9 mg/dL (1.6-2.4); Potassium 3.9 mEq/L (3.5-5.1); Protein, Total 7.5 g/dL (6.4-8.2); Sodium Level 132 mEq/L (136-145)
[2024-11-23 19:32] LABS: Glucose Level 500 mg/dL (74-106)
[2024-11-23] MEDS ORDERED: INSULIN REGULAR (HUMAN) 100 UNIT/ML ONE (19:55)
[2024-11-23 20:22] LABS: Specific Gravity > 1.030 (1.005-1.030); Sqamous Epithelial <5 /HPF (None Seen); Urine Bacteria <20 /HPF (<20); Urine Bilirubin NEGATIVE (Negative); Urine Blood Negative (Negative); Urine Clarity Clear (Clear); Urine Color Light-Yellow (Yellow); Urine Crystals Unidentified Few /HPF (None Seen); Urine Culture Reflex Order REFLEXED; Urine Glucose 4+ (Over) (Negative); Urine Ketones 1+ (Negative); Urine Micro Reflex YN NO BILL MICROSCOPIC; Urine Mucus Slight /HPF (None Seen); Urine Nitrite NEGATIVE (Negative); Urine Protein NEGATIVE (Negative); Urine RBC 21-50 /HPF (None Seen); Urine Urobilinogen Normal (Normal); Urine Yeast (Budding) Trace /HPF (None Seen)
--- NOTE | 2024-11-23 20:22 | RAD REPORT ---
EXAMINATION: Tib Fib Left CLINICAL INDICATION: Leg pain FINDINGS: No fracture seen
--- NOTE | 2024-11-23 20:23 | RAD REPORT ---
EXAMINATION: Tib Fib Right CLINICAL INDICATION: Leg pain FINDINGS: No fracture seen
--- NOTE | 2024-11-23 20:55 | RAD REPORT ---
EXAMINATION: CT HEAD WITHOUT CONTRAST CT CERVICAL SPINE WITHOUT CONTRAST CLINICAL INDICATION: Head and neck injury status post fall. Head and neck pain TECHNIQUE: Axial CT images from the skull base to the vertex without intravenous contrast. Axial CT i mages through the cervical spine were obtained without intravenous contrast. Sagittal and coronal reformatted images were created from the data set. Coronal and sagittal reformatted images were creat ed from the data set. One or more of the following dose reduction techniques were used: Automated exposure control, adjustment of the mA and/or kV according to patient size, and/or iterative reconstr uction. Unless otherwise specified, incidental findings do not require dedicated imaging follow-up. [id number]. Comparison: 2018 and 2023 FINDINGS: An intracranial bleed is not seen. Ventricles are normal in caliber. No significant hypodensity within the brain No extra-axial fluid collection. No fluid within the sinuses/mastoids No fracture or dislocation is seen involving the cervical spine. IMPRESSION: No acute intracranial abnormality noted A cervical fracture is not seen. 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
--- NOTE | 2024-11-23 21:05 | RAD REPORT ---
EXAM: Chest Abdomen Pelvis W Cont CLINICAL INDICATION: Chest and abdominal pain status post fall TECHNIQUE: CT chest, abdomen and pelvis was performed, with 100 cc Isovue-300 IV contrast, as per de partment protocol. Axial, sagittal and coronal reconstructions were obtained. One or more of the following dose reduction techniques were used: Automated exposure control, adjustment of the mA and/o r kV according to the patient size, and/or iterative reconstruction. Unless otherwise specified, incidental findings do not require dedicated imaging follow-up. [id number]. Oral contrast not given. This limits evaluation of the bowel. COMPARISON: 2020 CT chest FINDINGS: A pulmonary contusion not seen. No mediastinal hematoma noted No pleural effusion.. No pericardial effusion The patient's arms were down by his side. Artifact does obscure portions of several organs. Liver, spleen, pancreas, adrenals, kidneys and bladder do not demonstrate an acute traumatic injury. There is no evidence of diverticulitis 14 mm mass extends off of the left kidney. Hounsfield unit 27. Additional simple left renal cyst is p resent. IMPRESSION: No acute traumatic injury involving chest, abdomen or pelvis seen 14 mm left renal mass may represent a benign complex cyst. Cystic neoplasm although possible is consi dered less likely. It is recommended that patient have a follow-up renal ultrasound in 3 months for reevaluation
--- NOTE | 2024-11-23 21:06 | RAD REPORT ---
Exam:Pelvis CLINICAL HISTORY: Pelvic pain FINDINGS: No fracture or dislocation seen Moderate to marked osteoarthritis involves the hips
--- NOTE | 2024-11-23 21:06 | RAD REPORT ---
Procedure: Chest Single View HISTORY: Chest pain COMPARISON: February 2024 FINDINGS: The lungs appear clear of acute infiltrate. No significant pleural effusion noted. The heart is normal size. IMPRESSION: No acute abnormality is displayed.
--- NOTE | 2024-11-23 21:07 | RAD REPORT ---
Exam:Femur Right CLINICAL HISTORY: Right leg pain. FINDINGS: No fracture seen
--- NOTE | 2024-11-23 21:07 | RAD REPORT ---
EXAM:Femur Left CLINICAL HISTORY: Left leg pain FINDINGS: No fracture seen
--- NOTE | 2024-11-23 21:38 | ER ---
Nurse's Notes [facility] Name: Rajat Camacho Age: 54 yrs Sex: Male : 1970 Arrival Date: 11/23/2024 Time: 18:05 Bed 4 Private MD: Diagnosis: Weakness;UTI/ Urinary tract infection, site not specified;Altered mental status, unspecified;Diabetes mellitus due to underlying condition with hyperglycemia Presentation: 11/23 18:35 Chief complaint: Patient states: Bilateral leg pain onset yesterday s/p fall. Pt states cm10 that he lost his balance and fell. Coronavirus screen: Client denies travel out of the [place] in the last 14 days. Ebola Screen: Patient denies travel to an Ebola-affected area in the 21 days before illness onset. Initial Sepsis Screen: Does the patient meet any 2 criteria? HR > 90 bpm. Does the patient have a suspected source of infection? No. Patient's initial sepsis screen is negative. Risk Assessment: Do you want to hurt yourself or someone else? Patient reports no desire to harm self or others. Onset of symptoms was November 23, 2024. 18:35 Method Of Arrival: Wheelchair cm10 18:35 Acuity: CARLIN 3 cm10 Historical: - Allergies: 18:37 No Known Allergies; cm10 - Home Meds: 18:37 clonazepam 1 mg Oral tablet 3 times per day [Active]; carbamazepine 300 mg oral cm10 Capsule, ER Multiphase 12 hr 1 cap three times a day [Active]; Depakote ER 250 mg Oral Tablet 1000 mg am [Active]; Janumet 50-1 Oral tablet 2 times per day [Active]; levothyroxine 75 mcg oral tablet 1 tab daily [Active]; phenobarbital 64.8 mg Oral tablet daily [Active]; risperidone 0.5 mg Oral tablet daily [Active]; rosuvastatin 10 mg oral tablet 1 tab [Active]; Topamax 200 mg Oral tablet 1 tab three times a day [Active]; - PMHx: 18:37 Diabetes - NIDDM; epilepsy; Seizures; Bipolar disorder; Hypercholesterolemia; cm10 - PSHx: 18:37 Appendectomy; back; cm10 - Immunization history:: Adult Immunizations up to date. - Infectious Disease History:: Denies. - Social history:: Smoking status: Patient denies any tobacco usage or history of. Screenin:29 [facility] ED Fall Risk Assessment (Adult) History of falling in the last 3 months, lg3 including since admission Yes- fall prone (multiple falls) (3 pts) Confusion or Disorientation Yes (5 pts) Intoxicated or Sedated No (0 pts) Impaired Gait Yes (1 pt) Mobility Assist Device Used Yes (1 pt) Altered Elimination Yes (1 pt) Score/Fall Risk Level 3 or more points = High Risk Oriented to surroundings, Maintained a safe environment, Educated pt \T\ family on fall prevention, incl call for assistance when getting out of bed, Assessed \T\ reinforced patient's understanding of fall precautions, Provided non-skid footwear, Utilized family, sitter, or virtual industrial relations worker as indicated. Abuse screen: Denies threats or abuse. Denies injuries from another. Nutritional screening: No deficits noted. Tuberculosis screening: No symptoms or risk factors identified. Assessment: 19:29 General: Appears in no apparent distress. comfortable, Behavior is calm, cooperative. lg3 Pain: Complains of pain in back, right leg and left leg. Neuro: Frankel Agitation-Sedation Scale (RASS): 0 - Alert and Calm Level of Consciousness is awake, obeys commands, confused, Oriented to person, place, situation. Neuro: family reports increased confusion. Cardiovascular: No deficits noted. Denies chest pain, shortness of breath, Capillary refill < 3 seconds Clubbing of nail beds is absent JVD is absent Patient's skin is warm and dry. Respiratory: No deficits noted. Airway is patent Respiratory effort is even, unlabored, Respiratory pattern is regular, symmetrical. GI: No deficits noted. Abdomen is round non-distended. : No deficits noted. Reports incontinence. EENT: No deficits noted. No signs and/or symptoms were reported regarding the EENT system. Derm: Skin is intact, is healthy with good turgor, Skin is dry, Skin is pale. Musculoskeletal: Circulation, motion, and sensation intact. Range of motion: intact in all extremities, Reports pain in right leg and left leg. 20:57 Reassessment: Patient appears in no apparent distress at this time. No changes from lg3 previously documented assessment. Patient and/or family updated on plan of care and expected duration. Pain level reassessed. Patient is alert, oriented x 3, equal unlabored respirations, skin warm/dry/pink. Vital Signs: 18:35 BP 139 / 90; Pulse 106; Resp 18; Temp 98.9; Pulse Ox 100% ; cm10 19:29 BP 135 / 77; Pulse 99; Resp 16 S; Pulse Ox 91% on R/A; lg3 20:57 BP 137 / 81; Pulse 97; Resp 17 S; Pulse Ox 95% on R/A; lg3 ED Course: 18:12 Patient arrived in ED. sj2 18:32 Tee Wilson PA is PHCP. cp 18:32 Tee Duncan MD is Attending Physician. cp 18:37 Triage completed. cm10 18:41 Arm band placed on right wrist. Patient placed in an exam room, on a stretcher. cm10 19:04 Basic Metabolic Panel Sent. em1 19:04 CBC with Diff Sent. em1 19:04 LFT's Sent. em1 19:04 Magnesium Sent. em1 19:04 PT-INR Sent. em1 19:04 Troponin HS Sent. em1 19:04 Initial lab(s) drawn, by me, sent to lab. Inserted saline lock: 22 gauge in right em1 wrist, using aseptic technique. Blood collected. Flushed with 10 mL NS. 19:13 Quiana Squires, RN is Primary Nurse. lg3 19:29 Patient has correct armband on for positive identification. Placed in gown. Bed in low lg3 position. Call light in reach. Side rails up X2. Client placed on continuous cardiac and pulse oximetry monitoring. NIBP monitoring applied. court monitor on. Door closed. Noise minimized. Warm blanket given. Pillow given. Family accompanied patient. 19:29 Cleaned of incontinence. Linen changed. lg3 20:08 XRAY Chest (1 view) In Process Unspecified. EDMS 20:08 XRAY Pelvis In Process Unspecified. EDMS 20:09 XRAY Femur LEFT In Process Unspecified. EDMS 20:09 XRAY Femur RIGHT In Process Unspecified. EDMS 20:09 XRAY Tib Fib LEFT In Process Unspecified. EDMS 20:09 XRAY Tib Fib RIGHT In Process Unspecified. EDMS 20:36 Chest Abdomen Pelvis W Cont In Process Unspecified. EDMS 20:36 Head C Spine Mpr Wo Con In Process Unspecified. EDMS 21:36 Prince Kumari MD is Hospitalizing Provider. cp 21:56 Inserted saline lock: 22 gauge in right forearm, using aseptic technique. Flushed with bm8 10 mL NS IV discontinued, intact, bleeding controlled, No redness/swelling at site. Pressure dressing applied, 22g right wrist. 22:37 No provider procedures requiring assistance completed. Patient admitted, IV remains in lg3 place. Administered Medications: 19:31 Drug: NS 0.9% IV 1000 ml IV at 1000 ml once; to be given as a bolus over 60 minutes bm8 Route: IV; Rate: 1000 ml; Site: right hand; 22:08 Follow up: Response: No adverse reaction; IV Status: Completed infusion; IV Intake: lg3 1000ml 19:59 Drug: Insulin Regular Human IVP 10 units IVP once {Co-Signature: laine (Blayne Leone lg3 RN).} Route: IVP; Site: right hand; 22:08 Follow up: Response: No adverse reaction lg3 21:47 Drug: Rocephin IV 1 grams IV at calculated rate once; Given slow IV push per pharmacy lg3 instructions Route: IV; Rate: calculated rate; Site: right hand; 22:08 Follow up: Response: No adverse reaction; IV Status: Completed infusion; IV Intake: [id number] Medication: 22:37 VIS not applicable for this client. lg3 Intake: 22:08 IV: 10ml; Total: 10ml. lg3 22:08 IV: 1000ml; Total: 1010ml. lg3 Outcome: 21:38 Decision to Hospitalize by Provider. cp 22:37 Admitted to Med/surg accompanied by tech, via stretcher, lg3 22:37 Condition: stable 22:37 Instructed on the need for admit, Demonstrated understanding of instructions, 22:38 Patient left the ED. lg3 Signatures: Dispatcher [employer] Bryant Meyer em1 Tee Wilson PA PA cp Able, Lacie RN RN lg3 Abril Regan RN RN cm10 Logan Umaña RN RN bm8 Garcia Helton 2 Blayne Leone RN Corrections: (The following items were deleted from the chart) 18:41 18:37 Allergies: PENICILLINS; cm10 cm10
--- NOTE | 2024-11-23 21:38 | EDPHYS ---
Physician Documentation [facility] Name: Rajat Camacho Age: 54 yrs Sex: Male : 1970 Arrival Date: 11/23/2024 Time: 18:05 Bed 4 Private MD: ED Physician Tee Duncan HPI: 11/23 18:50 This 54 yrs old Male presents to ER via Wheelchair with complaints of Fall cp Injury. 18:50 Details of fall: The patient fell from an upright position, while standing. Onset: The cp symptoms/episode began/occurred yesterday. 18:50 Associated injuries: The patient sustained left leg and right leg pain. Patient cp accompanied to ED by who reports patient has had increasing weakness of legs with several falls recently. Most recent fall yesterday after legs became weak and gave out. Patient normally able to ambulate with use of cane but has been unable today. Historical: - Allergies: 18:37 No Known Allergies; cm10 - Home Meds: 18:37 clonazepam 1 mg Oral tablet 3 times per day [Active]; carbamazepine 300 mg oral cm10 Capsule, ER Multiphase 12 hr 1 cap three times a day [Active]; Depakote ER 250 mg Oral Tablet 1000 mg am [Active]; Janumet 50-1 Oral tablet 2 times per day [Active]; levothyroxine 75 mcg oral tablet 1 tab daily [Active]; phenobarbital 64.8 mg Oral tablet daily [Active]; risperidone 0.5 mg Oral tablet daily [Active]; rosuvastatin 10 mg oral tablet 1 tab [Active]; Topamax 200 mg Oral tablet 1 tab three times a day [Active]; - PMHx: 18:37 Diabetes - NIDDM; epilepsy; Seizures; Bipolar disorder; Hypercholesterolemia; cm10 - PSHx: 18:37 Appendectomy; back; cm10 - Immunization history:: Adult Immunizations up to date. - Infectious Disease History:: Denies. - Social history:: Smoking status: Patient denies any tobacco usage or history of. ROS: 18:55 Constitutional: Negative for fever, cp 18:55 Eyes: Negative for injury, pain, redness, and discharge, cp 18:55 Cardiovascular: Negative for chest pain, edema, 18:55 Respiratory: Negative for cough, shortness of breath, wheezing, 18:55 Abdomen/GI: Negative for abdominal pain, vomiting, diarrhea, constipation, 18:55 Back: Positive for pain at rest, pain with movement, 18:55 Neuro: Positive for altered mental status, weakness, Negative for syncope, 18:55 All other systems are negative, Exam: 18:58 Constitutional: The patient appears in no acute distress, alert, awake, cp non-diaphoretic, non-toxic, well developed, well nourished, 18:58 Head/Face: Normocephalic, atraumatic. cp 18:58 Eyes: Periorbital structures: appear normal, Pupils: equal, round, and reactive to light and accomodation, Extraocular movements: intact throughout, Conjunctiva: normal, no exudate, no injection, Sclera: no appreciated abnormality, Lids and lashes: appear normal, bilaterally, 18:58 ENT: External ear(s): are unremarkable, Nose: is normal, Mouth: Lips: dry, Oral mucosa: moist, Posterior pharynx: Airway: no evidence of obstruction, patent, 18:58 Neck: C-spine: vertebral tenderness, is not appreciated, crepitus, is not appreciated, ROM/movement: pain, is not appreciated, limited range of motion, is not appreciated, 18:58 Chest/axilla: Inspection: normal, Palpation: crepitus, is not appreciated, tenderness, is not appreciated, 18:58 Cardiovascular: Rate: tachycardic, Rhythm: regular, Edema: is not appreciated, JVD: is not appreciated, 18:58 Respiratory: the patient does not display signs of respiratory distress, Respirations: normal, no use of accessory muscles, no retractions, labored breathing, is not present, Breath sounds: are clear throughout, no decreased breath sounds, no stridor, no wheezing, 18:58 Abdomen/GI: Inspection: abdomen appears normal, Palpation: abdomen is soft and non-tender, in all quadrants, 18:58 Back: pain, that is mild, of the thoracic area and lumbar area, ROM is painful, with all movement, 18:58 : Male external genitalia: whitish discharge noted to head of penis and scrotum, 18:58 Musculoskeletal/extremity: Extremities: noted in the right leg and left leg: pain, tenderness, ROM: limited passive range of motion due to pain, in the right leg and left leg, 18:58 Neuro: Orientation: to person, situation, Mentation: able to follow commands, slow to respond, Motor: moves all fours, no focal deficits, 19:01 ECG was reviewed by the Attending Physician. Vital Signs: 18:35 BP 139 / 90; Pulse 106; Resp 18; Temp 98.9; Pulse Ox 100% ; cm10 19:29 BP 135 / 77; Pulse 99; Resp 16 S; Pulse Ox 91% on R/A; lg3 20:57 BP 137 / 81; Pulse 97; Resp 17 S; Pulse Ox 95% on R/A; lg3 MDM: 18:42 Medical Screening Exam initiated michi 21:35 Data reviewed: vital signs, nurses notes, lab test result(s), EKG, radiologic studies, cp CT scan, plain films, and as a result, I will admit patient. 21:35 Differential diagnosis: closed head injury, contusion, fracture, multiple trauma, cp sepsis, CVA, seizure, substance abuse. Management of patient was discussed with the following: Hospitalist: DR Anderson will admit after discussion. I considered the following discharge prescriptions or medication management in the emergency department Medications were administered in the Emergency Department. See MAR. Independent interpretation of the following test(s) in the Emergency Department EKG: See my EKG interpretation above. Care significantly affected by the following chronic conditions: Diabetes, seizure disorder. Counseling: I had a detailed discussion with the patient and/or guardian regarding the historical points, exam findings, and any diagnostic results supporting the discharge/admit diagnosis, lab results, radiology results, the need for further work-up and treatment in the hospital. Response to treatment: the patient's symptoms have mildly improved after treatment. 11/23 18:45 Order name: Basic Metabolic Panel; Complete Time: 19:39 cp 11/23 19:40 Interpretation: Normal except: NA 132; GLUC 500; GFR 71. cp 11/23 18:45 Order name: CBC with Diff; Complete Time: 19:19 cp 11/23 19:19 Interpretation: Normal except: WBC 3.80; RBC 4.06; HGB 12.7; HCT 38.5; PLT 125; MPV 7.0.cp 11/23 18:45 Order name: LFT's; Complete Time: 19:39 cp 11/23 19:40 Interpretation: Normal except: AST 60; ALB 2.8; GLOB 4.7; A/G 0.6. cp 11/23 18:45 Order name: Magnesium; Complete Time: 19:39 cp 11/23 18:45 Order name: PT-INR; Complete Time: 19:19 cp 11/23 18:45 Order name: Troponin HS; Complete Time: 19:39 cp 11/23 18:45 Order name: Urinalysis W/Microscopic; Complete Time: 20:50 cp 11/23 20:51 Interpretation: Normal except: Urine SG > 1.030; UGLUC 4+ (Over); UKET 1+; UESTR 75; cp UWBC 10-20; URBC 21-50; BYST Trace. 11/23 19:22 Order name: CPK; Complete Time: 20:12 cp 11/23 20:12 Interpretation: Reviewed. cp 11/23 19:22 Order name: UDS; Complete Time: 22:10 cp 11/23 22:11 Interpretation: Normal except: QUENTIN POSITIVE. cp 11/23 19:34 Order name: Glucose, Ancillary Testing; Complete Time: 19:39 EDMS 11/23 20:25 Order name: Urine Culture EDMS 11/23 20:52 Order name: Lactate w/ 2H reflex if indic.; Complete Time: 22:10 cp 11/23 22:11 Interpretation: Reviewed. cp 11/23 20:52 Order name: Blood Culture Adult (2) cp 11/23 21:51 Order name: Magnesium EDMS 11/23 21:51 Order name: Phosphorus EDMS 11/23 21:51 Order name: Urinalysis w/ reflexes EDMS 11/23 21:51 Order name: Basic Metabolic Panel EDMS 11/23 21:51 Order name: Basic Metabolic Panel EDMS 11/23 21:51 Order name: CBC with Automated Diff EDMS 11/23 21:51 Order name: CBC with Automated Diff EDMS 11/23 21:52 Order name: T3 Free EDMS 11/23 21:52 Order name: T4 Free EDMS 11/23 21:52 Order name: Thyroid Stimulating Hormone EDMS 11/23 22:19 Order name: Hemoglobin A1c EDMS 11/23 22:22 Order name: Glucose, Ancillary Testing EDMS 11/23 18:45 Order name: XRAY Chest (1 view); Complete Time: 21:15 cp 11/23 21:15 Interpretation: Report review. cp 11/23 19:22 Order name: XRAY Pelvis; Complete Time: 21:15 cp 11/23 21:16 Interpretation: Report reviewed. cp 11/23 19:22 Order name: XRAY Femur LEFT; Complete Time: 21:15 cp 11/23 21:16 Interpretation: Reviewed. cp 11/23 19:22 Order name: XRAY Femur RIGHT; Complete Time: 21:15 cp 11/23 21:17 Interpretation: Report reviewed. cp 11/23 19:22 Order name: XRAY Tib Fib LEFT; Complete Time: 20:50 cp 11/23 19:22 Order name: XRAY Tib Fib RIGHT; Complete Time: 20:50 cp 11/23 19:36 Order name: Chest Abdomen Pelvis W Cont; Complete Time: 21:15 EDWI 11/23 21:18 Interpretation: Report reviewed. cp 11/23 19:42 Order name: Head C Spine Mpr Wo Con; Complete Time: 21:15 EDWI 11/23 21:18 Interpretation: Report reviewed. cp 11/23 22:21 Order name: Brain Wo Cont EDWI 11/23 22:21 Order name: C Spine W Cont EDWI 11/23 22:21 Order name: Spine Lumbar W/Cont EDWI 11/23 22:21 Order name: Thoracic Spine W/Con EDWI 11/23 18:45 Order name: EKG; Complete Time: 18:45 cp 11/23 21:51 Order name: Physical Therapy Consult EDWI 11/23 21:52 Order name: Occupational Therapy Consult EDWI 11/23 18:45 Order name: Accucheck Blood Glucose; Complete Time: 19:18 cp 11/23 18:45 Order name: Cardiac monitoring; Complete Time: 18:47 cp 11/23 18:45 Order name: EKG - Nurse/Tech; Complete Time: 18:56 cp 11/23 18:45 Order name: IV Saline Lock; Complete Time: 19:04 cp 11/23 18:45 Order name: Labs collected and sent; Complete Time: 19:04 cp 11/23 18:45 Order name: O2 Per Protocol; Complete Time: 18:47 cp 11/23 18:45 Order name: O2 Sat Monitoring; Complete Time: 18:47 cp EC:01 Rate is 97 beats/min. Rhythm is regular. VA interval is normal. QRS interval is normal. cp QT interval is normal. Interpreted by me. Reviewed by me. Administered Medications: 19:31 Drug: NS 0.9% IV 1000 ml IV at 1000 ml once; to be given as a bolus over 60 minutes bm8 Route: IV; Rate: 1000 ml; Site: right hand; 22:08 Follow up: Response: No adverse reaction; IV Status: Completed infusion; IV Intake: lg3 1000ml 19:59 Drug: Insulin Regular Human IVP 10 units IVP once {Co-Signature: laine (Blayne Leone lg3 RN).} Route: IVP; Site: right hand; 22:08 Follow up: Response: No adverse reaction lg3 21:47 Drug: Rocephin IV 1 grams IV at calculated rate once; Given slow IV push per pharmacy lg3 instructions Route: IV; Rate: calculated rate; Site: right hand; 22:08 Follow up: Response: No adverse reaction; IV Status: Completed infusion; IV Intake: [id number] Disposition Summary: 11/23/24 21:38 Hospitalization Ordered Notes: Hospitalization Status: Inpatient Admission cp Provider: Prince lawrence Kumari Location: Telemetry/[facility] (Inpatient) cp Condition: Fair cp Problem: new cp Symptoms: are unchanged cp Bed/Room Type: Standard cp Room Assignment: 201(11/23/24 21:53) rv1 Diagnosis - Weakness cp - UTI/ Urinary tract infection, site not specified cp - Altered mental status, unspecified cp - Diabetes mellitus due to underlying condition with hyperglycemia cp Forms: - Medication Reconciliation Form cp - SBAR form cp - Leadership Thank You Letter cp Addendum: 11/25/2024 15:28 Co-signature as Attending Physician, Tee Duncan MD I agree with the assessment and c kumar plan of care. Signatures: Dispatcher [employer] Tee Bauer MD MD cha Page, Corey, PA PA cp Quiana Squires RN RN lg3 Estelle Martin rv1 Abril Regan RN RN cm10 Logan Umaña RN RN bm8 Blayne Leone RN Corrections: (The following items were deleted from the chart) 11/23 18:41 18:37 Allergies: PENICILLINS; cm10 cm10 19:23 19:22 CREATINE PHOSPHOKINASE+C.LAB.BRZ ordered. EDWI EDMS 19:23 19:22 URINE DRUG SCREEN+UC.LAB.BRZ ordered. EDMS EDMS 19:23 Tib Fib Right+RAD.RAD.BRZ ordered. EDMS EDMS 19:29 Head C Spine CAP W Con+CT.RAD.BRZ ordered. EDMS EDMS :53 21:38 cp rv1
[2024-11-23] MEDS ORDERED: CEFTRIAXONE 1000 MG/VIAL ONE (21:44)
[2024-11-23] MEDS ORDERED: ONDANSETRON 4 MG/2 ML VIAL IV PRN (21:47)
[2024-11-23 21:49] LABS: Barbiturates POSITIVE (NEGATIVE); Benzodiazepines NEGATIVE (NEGATIVE); Cocaine NEGATIVE (NEGATIVE); METHAMPHETAM NEGATIVE (NEGATIVE); Methadone NEGATIVE (NEGATIVE); Opiates NEGATIVE (NEGATIVE); Phencyclidine NEGATIVE (NEGATIVE); THC Cannibis NEGATIVE (NEGATIVE)
[2024-11-23] MEDS ORDERED: D10W 125 ML IV PRN (21:52)
[2024-11-23] MEDS ORDERED: GLUCAGON 1 MG/VIAL IM PRN ×2 (21:52→22:16)
[2024-11-23] MEDS ORDERED: D50W 25 GM/50 ML SYRINGE IV PRN (22:16)
--- NOTE | 2024-11-23 22:23 | P.HP ---
Certification for Inpatient Patient admitted to: Inpatient With expected LOS: >2 Midnights Practitioner: I am a practitioner with admitting privileges, knowledge of patient current condition, hospital course, and medical plan of care. Services: Services provided to patient in accordance with Admission requirements found in Title 42 Section 412.3 of the Code of Federal Regulations Patient History Date of Service: 11/23/24 Reason for admission: AMS, UTI, hyperglycemia History of Present Illness: Patient is a 54 year old male with uncontrolled diabetes mellitus. He presents to the ER accompanied by with complaints of altered mental status, lower extremity weakness and frequent falls. Patient has had a similar presentation in the past. Her had a Brain MRI at the time and it was negative. He returns today with similar complaints. He is having bilateral lower extremity pain and weakness. Work up in the ER revealed an abnormal UA, severe hyperglycemia. CT A/P was unremarkable. Allergies No Known Drug Allergies Allergy (Verified 08/25/23 22:22) Unknown Home Medications: Divalproex Sodium [Depakote ER] 1,000 mg PO BID 04/29/21 Divalproex Sodium [Depakote ER] 5 tab PO BEDTIME 04/29/21 PHENobarbitaL [Phenobarbital*] 64.8 mg PO DAILY 04/29/21 Rosuvastatin Calcium 10 mg PO BEDTIME 04/29/21 Topiramate [Topamax] 200 mg PO BID 04/29/21 carBAMazepine [Carbatrol] 300 mg PO DAILY WITH BREAKFAST 04/29/21 carBAMazepine [Carbatrol] 600 mg PO BEDTIME 04/29/21 clonazePAM [Clonazepam] 1 mg PO TID 04/29/21 Levothyroxine Sodium 75 mcg PO DAILY 08/25/23 Sitagliptin Phos/Metformin HCl [Janumet 50-1,000 mg Tablet] 1 tab PO BID 08/25/23 - Past Medical/Surgical History Diabetic: Yes -: Epilepsy -: Diabetes mellitus type 2 -: high cholesterol -: hypothyroid -: Appendectomy -: Back surgery/ pinched nerve -: [id number] diabetes -: Seizure disorder Psychosocial/ Personal History: Unemployed, lives with his and children - Family History Mother -: Heart disease - Social History Alcohol use: No CD- Drugs: No Caffeine use: Yes Physical Examination - Physical Exam General: Confused, Obese HEENT: Atraumatic, Normocephalic Respiratory: Clear to auscultation bilaterally, Normal air movement Cardiovascular: No edema, Normal pulses, Regular rate/rhythm, Normal S1 S2 Neurological: Normal speech - Studies Laboratory Data (last 24 hrs) 11/23/24 11/23/24 11/23/24 19:00 19:00 19:00 WBC 3.80 L Hgb 12.7 L Hct 38.5 L Plt Count 125 L PT 12.1 INR 1.08 Sodium 132 L Potassium 3.9 BUN 15 Creatinine 1.20 Glucose 500 H* Magnesium 1.9 Total Bilirubin 0.4 AST 60 H ALT 34 Alkaline Phosphatase 83 Assessment and Plan - Problems (Diagnosis) (1) Generalized weakness Current Visit: No Status: Acute (2) Lethargic Current Visit: No Status: Acute (3) Seizure disorder Current Visit: No Status: Acute (4) Type 2 diabetes mellitus Current Visit: No Status: Acute (5) UTI (urinary tract infection) Current Visit: Yes Status: Acute (6) Pancytopenia Current Visit: Yes Status: Acute (7) Polysubstance abuse Current Visit: No Status: Acute - Plan Assessment Patient is 54 year old male with obesity, type II diabetes mellitus. He presents with generalized weakness, bilateral lower pain and frequent falls. During my evaluation, patient was jittery and weak. Blood work is significant for pancytopenia, UTI and severe hyperglycemia Generalized weakness Bilateral lower extremity pain UTI Pancytopenia Type II diabetes mellitus with severe hyperglycemia, and suspected diabetic neuropathy PLAN: WILL admit patient inpatient with telemetry Start NS infusion and IV ceftriaxone PT/OT Gabapentin trial Will start on NPH 15 units BID along with insulin sliding scale Check A1c Resume rest of home medications upon reconciliation - Advance Directives Does patient have a Living Will: No Does patient have a Durable POA for Healthcare: No
[2024-11-23] MEDS: GABAPENTIN 100 MG CAP PO SCH (22:34)
[2024-11-23 23:26] VITALS: BMI 34.3
[2024-11-24] MEDS: INSULIN NPH (HUMAN) 100 UNITS/ML SQ SCH (00:29)
[2024-11-24] MEDS: NA CHLORIDE 0.9% 1,000 ML IV SCH (00:30)
[2024-11-24] MEDS: HEPARIN 5000 UNIT/ML 1 ML VIAL SQ SCH (00:35)
[2024-11-24 00:58] LABS: Phosphorus 2.3 mg/dL (2.5-4.9)
[2024-11-24 00:59] LABS: Magnesium 1.9 mg/dL (1.6-2.4)
[2024-11-24 01:07] LABS: T3 Free 1.36 pg/mL (2.18-3.98); Thyroid Stimulating Hormone 1.63 uIU/mL (0.358-3.740)
[2024-11-24] MEDS ORDERED: DIVALPROEX DR 500MG TAB PO SCH ×2 (05:00→06:00)
[2024-11-24] MEDS: DIVALPROEX DR 500MG TAB PO SCH (05:01)
[2024-11-24 06:16] LABS: Absolute Lymphocytes (CBC) 1.4 K/uL (0.7-4.9); Absolute Monocytes 0.2 K/uL (0.1-1.3); Basophils % 0.5 % (0-1.3); Hematocrit 33.5 % (39.6-49.0); Hemoglobin 11.2 g/dL (13.6-17.9); Lymphocytes % 37.4 % (15.3-44.8); MCH 31.5 pg (27.0-35.0); MCHC 33.6 g/dL (32.0-36.0); MCV 93.9 fL (80-100); MPV 6.7 fL (7.6-11.3); Monocytes % 6.8 % (3.3-12.3); Neutrophils % 55.3 % (41.7-73.7); Nucleated Red Blood Cells % 0.1 % (0-0); Platelets 118 thou/uL (152-406); RBC Red Blood Cell Count 3.56 M/uL (4.33-5.43); Red Cell Distribution Width 14.4 % (12.1-15.2)
[2024-11-24 06:29] LABS: Anion Gap 10.5 mEq/L (5.0-15.0); Potassium 3.5 mEq/L (3.5-5.1)
--- NOTE | 2024-11-24 06:40 | P.PN ---
Subjective Date of Service: 11/24/24 Chief Complaint: AMS, UTI, hyperglycemia Israeli-speaking male, MRI of the brain no acute abnormal/ spine ordered due to recurrent falls spinal stenosis noted, Review of Systems 10-point ROS is otherwise unremarkable Physical Examination - Vital Signs Temperature: 98.0 F Blood Pressure: 146/82 Pulse: 100 Respirations: 18 Pulse Ox (%): 94 - Physical Exam General: Alert, In no apparent distress, Oriented x3, Other (Forgetful) HEENT: Atraumatic, Normocephalic Neck: 2+ carotid pulse no bruit, JVD not distended Respiratory: Clear to auscultation bilaterally, Normal air movement Cardiovascular: No edema, Normal pulses, Regular rate/rhythm Capillary refill: <2 Seconds Gastrointestinal: Normal bowel sounds, Soft and benign, Other (Obese) Musculoskeletal: No clubbing, Other (Generalized weakness) Neurological: Normal speech, Abnormal gait, Abnormal strength - Studies Laboratory Data (last 24 hrs) 11/23/24 11/23/24 11/23/24 19:00 19:00 19:00 WBC 3.80 L Hgb 12.7 L Hct 38.5 L Plt Count 125 L PT 12.1 INR 1.08 Sodium 132 L Potassium 3.9 BUN 15 Creatinine 1.20 Glucose 500 H* Magnesium 1.9 Total Bilirubin 0.4 AST 60 H ALT 34 Alkaline Phosphatase 83 Assessment And Plan - Plan - Problems (Diagnosis) Acute spinal spondylosis Acute lumbar/ thoracic spinal stenosis Acute recurrent falls Generalized weakness Current Visit: Yes Status: Acute MRI ordered, PT OT eval Type II diabetes mellitus with severe hyperglycemia, and suspected diabetic neuropathy hemoglobin A1c 11.1 MRI of the thoracic, cervical, lumbar spine MRI of the brain no acute abnormality MRI of the thoracic spine Small left to moderate posterior lateral disc osteophyte complex T11-12 Spondylosis L4-5 results in moderate stenosis, Broadbase disc herniation L5-S1. This in combination with spondylosis results in marked left foraminal, stenosis and marked central spinal stenosis Cervical spine Spondylosis C4-5 results in moderate right foraminal stenosis Type 2 diabetes mellitus with hyperglycemia with suspected neuropathy Current Visit: No Status: Acute severe hyperglycemia blood sugar of 500, 487, Will start on NPH 15 units BID along with insulin sliding scale Check A1c 11.1 UTI (urinary tract infection) likely secondary from uncontrolled diabetes Yeast infection likely secondary from uncontrolled diabetes Current Visit: Yes Status: Acute Urine culture, ceftriaxone Fluconazole p.o. x 1, nystatin upper respiratory infection Nebulizers, ceftriaxone Seizure disorder Current Visit: No Status: Acute Resume home meds Pancytopenia Current Visit: Yes Status: Acute Polysubstance abuse Current Visit: No Status: Acute - Plan Assessment Patient is 54 year old male with obesity, type II diabetes mellitus. He presents with generalized weakness, bilateral lower pain and frequent falls. During my evaluation, patient was jittery and weak. Blood work is significant for pancytopenia, UTI and - Advance Directives Does patient have a Living Will: No Does patient have a Durable POA for Healthcare: No Discharge Plan: Home - Code Status/Comfort Care Code Status: Full Code Critical Care: No Time Spent Managing PTS Care (In Minutes): 35
[2024-11-24] MEDS: INSULIN REGULAR (HUMAN) 100 UNIT/ML SQ SCH (09:01)
[2024-11-24] MEDS: POTASSIUM CL SA 10 MEQ TAB PO ONE (09:02)
[2024-11-24] MEDS: CEFTRIAXONE 1,000 MG in NA CHLORIDE 0.9% 50 ML IVPB SCH (09:02)
[2024-11-24] MEDS: FLUCONAZOLE 100 MG TAB PO ONE ×2 (10:59→14:08)
--- NOTE | 2024-11-24 13:57 | RAD REPORT ---
EXAMINATION: MRI BRAIN WITHOUT CONTRAST CLINICAL INDICATION: Head injury status post fall. Alteration of consciousness. TECHNIQUE: Multiplanar multisequence MR images of the brain were obtained without intravenous contras t. Unless otherwise specified, incidental findings do not require dedicated imaging follow-up. COMPARISON: Head CT November 23, 2024. FINDINGS: No significant abnormal signal within the brain Diffusion weighted/ADC mapping does not demonstrate evidence of an acute infarction. Ventricles are normal caliber. No extra-axial fluid collection. No fluid within the sinuses/mastoid seen IMPRESSION: No acute intracranial abnormalities displayed
[2024-11-24] MEDS: NYSTATIN 100MU/GM CREAM 15GM TOP SCH (14:12)
--- NOTE | 2024-11-24 14:14 | RAD REPORT ---
EXAMINATION: MRI CERVICAL SPINE WITHOUT CONTRAST CLINICAL INDICATION: Bilateral lower extremity weakness TECHNIQUE: Multiplanar multisequence MR images were obtained of the cervical spine without intravenou s contrast. Unless otherwise specified, incidental findings do not require dedicated imaging follow-up. COMPARISON: CT November 23, 2024 FINDINGS: Craniocervical junction unremarkable Mild spondylosis C2-3, C3-4, C5-6, C6-7 and C7-T1 Uncal vertebral hypertrophy and small osteophytes C4-5 results in moderate narrowing of the right and mild narrowing of the left neural foramina. Spinal cord is normal caliber and signal. No significant abnormal signal within the bones. Graph IMPRESSION: Spondylosis C4-5 results in moderate right foraminal stenosis
--- NOTE | 2024-11-24 14:21 | RAD REPORT ---
EXAMINATION: Thoracic Spine Wo Contr CLINICAL INDICATION: Bilateral lower extremity numbness TECHNIQUE: Multiplanar multisequence MR images were obtained of the thoracic spine without intravenou s contrast. Unless otherwise specified, incidental findings do not require dedicated imaging follow-up. [id number]. COMPARISON: CT November 23, 2024 FINDINGS: Small to moderate left posterior lateral disc osteophyte complex T11-12. Mild spondylosis involves additional levels of the thoracic spine Spinal cord normal caliber and signal. No significant abnormal signal bones. IMPRESSION: Small left to moderate posterior lateral disc osteophyte complex T11-12
--- NOTE | 2024-11-24 14:42 | RAD REPORT ---
EXAMINATION: MRI LUMBAR SPINE WITHOUT CONTRAST CLINICAL INDICATION: Bilateral lower extremity weakness TECHNIQUE: Multiplanar multisequence MR images were obtained of the lumbar spine without intravenous contrast. Unless otherwise specified, incidental findings do not require dedicated imaging follow-up. [id number]. COMPARISON: 2017 FINDINGS: No significant abnormality L1-2, L2-3 and L3-4 Asymmetric disc bulge L4-5 more prominent right posterior laterally. Ligamentum flavum and facet hype rtrophy. Thecal sac 5.5 mm. Moderate bilateral foraminal stenosis. Mild posterior subluxation L5 on S1. Moderate broad-based disc herniation L5-S1 extending centrally a nd to the right and left. It abuts the left S1 nerve root. Epidural lipomatosis is present. Thecal sac 4 mm. Ligamentum flavum and facet hypertrophy. Marked narrowing of the left and moderate to marke d narrowing right neural foramina. No significant abnormal signal within the bones IMPRESSION: Spondylosis L4-5 results in moderate stenosis Broadbase disc herniation L5-S1. This in combination with spondylosis results in marked left foramina l stenosis and marked central spinal stenosis
[2024-11-24] MEDS: ALBUTEROL 2.5 MG/3 ML NEB SOL NEB ONE (16:15)
[2024-11-24] MEDS: FUROSEMIDE 40 MG/4 ML VIAL IV ONE (18:18)
[2024-11-24] MEDS: LEVALBUTEROL 1.25 MG/3 ML NEB NEB SCH (20:40)
[2024-11-24] MEDS: INSULIN GLARGINE 100 UNIT/ML SQ SCH (21:12)
[2024-11-24] MEDS: DIVALPROEX DR 250 MG TAB PO SCH (21:13)
[2024-11-25] MEDS: PHENOL 1.4% ORAL SPRAY 180ML MM PRN (02:11)
[2024-11-25 04:56] LABS: Absolute Lymphocytes (CBC) 1.3 K/uL (0.7-4.9); Absolute Monocytes 0.3 K/uL (0.1-1.3); Absolute Neutrophil 3.3 K/uL (1.8-8.0); Basophils % 0.5 % (0-1.3); Eosinophils % 0.1 % (0-4.4); Hematocrit 36.5 % (39.6-49.0); Hemoglobin 12.2 g/dL (13.6-17.9); Lymphocytes % 26.2 % (15.3-44.8); MCH 31.5 pg (27.0-35.0); MCHC 33.4 g/dL (32.0-36.0); MCV 94.2 fL (80-100); MPV 6.6 fL (7.6-11.3); Monocytes % 6.8 % (3.3-12.3); Neutrophils % 66.4 % (41.7-73.7); Platelets 115 thou/uL (152-406); RBC Red Blood Cell Count 3.87 M/uL (4.33-5.43); Red Cell Distribution Width 14.1 % (12.1-15.2)
[2024-11-25 05:19] LABS: Albumin 2.7 g/dL (3.4-5.0); Anion Gap 11.2 mEq/L (5.0-15.0); Magnesium 1.8 mg/dL (1.6-2.4); Potassium 3.2 mEq/L (3.5-5.1)
[2024-11-25] MEDS: ACETAMINOPHEN 325 MG TABLET PO PRN (05:25)
--- NOTE | 2024-11-25 06:22 | P.PN ---
Date of Service: 11/25/24 Subjective Chief Complaint: AMS, UTI, hyperglycemia [place]-speaking male, MRI of the brain no acute abnormal/ spine ordered due to recurrent falls spinal stenosis noted, Ambulating with physical therapy, Review of Systems 10-point ROS is otherwise unremarkable Physical Examination - Vital Signs Reviewed - Physical Exam General: Alert, In no apparent distress, Oriented x3, Other (Forgetful) HEENT: Atraumatic, Normocephalic Neck: 2+ carotid pulse no bruit, JVD not distended Respiratory: Clear to auscultation bilaterally, Normal air movement Cardiovascular: No edema, Normal pulses, Regular rate/rhythm Capillary refill: <2 Seconds Gastrointestinal: Normal bowel sounds, Soft and benign, Other (Obese) Musculoskeletal: No clubbing, Other (Generalized weakness) moves all extremities x 4 Neurological: Normal speech, Abnormal gait, Abnormal strength Assessment And Plan - Plan - Problems (Diagnosis) Acute spinal spondylosis Acute lumbar/ thoracic spinal stenosis Acute recurrent falls Generalized weakness Current Visit: Yes Status: Acute MRI ordered, PT OT eval Type II diabetes mellitus with severe hyperglycemia, and suspected diabetic neuropathy hemoglobin A1c 11.1 MRI of the thoracic, cervical, lumbar spine MRI of the brain no acute abnormality MRI of the thoracic spine Small left to moderate posterior lateral disc osteophyte complex T11-12 Spondylosis L4-5 results in moderate stenosis, Broadbase disc herniation L5-S1. This in combination with spondylosis results in marked left foraminal, stenosis and marked central spinal stenosis Cervical spine Spondylosis C4-5 results in moderate right foraminal stenosis Type 2 diabetes mellitus with hyperglycemia with suspected neuropathy Current Visit: No Status: Acute severe hyperglycemia blood sugar of 500, 487, Will start on NPH 15 units BID along with insulin sliding scale Check A1c 11.1 UTI (urinary tract infection) likely secondary from uncontrolled diabetes Yeast infection likely secondary from uncontrolled diabetes Current Visit: Yes Status: Acute Urine culture, ceftriaxone Fluconazole p.o. x 1, nystatin upper respiratory infection Nebulizers, ceftriaxone Seizure disorder Current Visit: No Status: Acute Resume home meds Pancytopenia Current Visit: Yes Status: Acute Polysubstance abuse Current Visit: No Status: Acute - Plan Assessment Patient is 54 year old male with obesity, type II diabetes mellitus. He presents with generalized weakness, bilateral lower pain and frequent falls. During my evaluation, patient was jittery and weak. Blood work is significant for pancytopenia, UTI and - Advance Directives Does patient have a Living Will: No Does patient have a Durable POA for Healthcare: No Discharge Plan: Home - Code Status/Comfort Care Code Status: Full Code Critical Care: No Time Spent Managing PTS Care (In Minutes): 35
[2024-11-25] MEDS: POTASSIUM 25 MEQ EFFERV TAB PO ONE (08:19)
[2024-11-25] MEDS: POTASS/SODIUM PHOSPHATE 1 PKT POWD.PACK PO SCH (08:20)
[2024-11-25] MEDS: INSULIN NPH (HUMAN) 100 UNITS/ML SQ SCH (08:26)
--- NOTE | 2024-11-25 13:24 | P.DS ---
Admission Date: 11/23/24 Discharge Date: 11/26/24 Disposition: ROUTINE DISCHARGE Discharge Condition: GOOD Reason for Admission: AMS, UTI, hyperglycemia Brief History of Present Illness: Patient is a 54 year old male with uncontrolled diabetes mellitus. He presents to the ER accompanied by with complaints of altered mental status, lower extremity weakness and frequent falls. Patient has had a similar presentation in the past. Her had a Brain MRI at the time and it was negative. He returns today with similar complaints. He is having bilateral lower extremity pain and weakness. Work up in the ER revealed an abnormal UA, severe hyperglycemia. CT A/P was unremarkable. - Physical Exam General: Alert, In no apparent distress, Oriented x3, Other (Forgetful) HEENT: Atraumatic, Normocephalic Neck: 2+ carotid pulse no bruit, JVD not distended Respiratory: Clear to auscultation bilaterally, Normal air movement Cardiovascular: No edema, Normal pulses, Regular rate/rhythm Capillary refill: <2 Seconds Gastrointestinal: Normal bowel sounds, Soft and benign, Other (Obese) Musculoskeletal: No clubbing, Other unsteady Neurological: Normal speech, generalized weakness Hospital Course: Patient is a 54 year old male with uncontrolled diabetes mellitus. He presents to the ER accompanied by with complaints of altered mental status, lower extremity weakness and frequent falls. Patient has had a similar presentation in the past. Her had a Brain MRI at the time and it was negative. He returns today with similar complaints. He is having bilateral lower extremity pain and weakness. Work up in the ER revealed an abnormal UA, severe hyperglycemia. CT A/P was unremarkable. Blood sugars improved with insulin, will need strict blood glucose monitoring after discharge, unsteady gait was evaluated by physical therapy prior to discharge plan to discharge home with home health with PT OT halfway. (refused [facility] at discharge) Assessment Acute spinal spondylosis Acute lumbar/ thoracic spinal stenosis Acute recurrent falls Generalized weakness Evaluated by physical therapy MRI of the thoracic, cervical, lumbar spine completed MRI of the brain no acute abnormality MRI of the thoracic spine Small left to moderate posterior lateral disc osteophyte complex T11-12 Spondylosis L4-5 results in moderate stenosis, Broadbase disc herniation L5-S1. This in combination with spondylosis results in marked left foraminal, stenosis and marked central spinal stenosis Cervical spine Spondylosis C4-5 results in moderate right foraminal stenosis Type 2 diabetes mellitus with hyperglycemia with suspected neuropathy severe hyperglycemia blood sugar of 500, 487, Will start on NPH 15 units BID along with insulin sliding scale Check A1c 11.1 UTI (urinary tract infection) likely secondary from uncontrolled diabetes Yeast infection likely secondary from uncontrolled diabetes Urine culture, ceftriaxone Fluconazole p.o. x 1, nystatin upper respiratory infection Nebulizers, ceftriaxone Seizure disorder Resume home meds Pancytopenia improved Polysubstance abuse Urine drug screen positive for benzodiazepine Continue home medicines as previously prescribed GOAL: Clear understanding of disease process INSTRUCTIONS: Physician Discharge Instructions: -Follow-up with orthopedic after discharge for degenerative joint disease, spinal stenosis, -Follow-up with PCP in 1 to 2 weeks -Please call Dr. Espinoza at [phone] if any questions regarding hospital stay -Please call nursing station at [phone] if any nursing or medication questions -Return to the emergency room if symptoms worsen Diet: ADA, low sodium Activity: Fall precautions Vital Signs/Physical Exam: Temp Pulse Resp BP Pulse Ox 98.1 F 92 H 16 128/76 93 11/25/24 12:00 11/25/24 12:00 11/25/24 12:00 11/25/24 12:00 11/25/24 12:00 Laboratory Data at Discharge: WBC 5.00 thou/uL (4.3-10.9) 11/25/24 04:40 Hgb 12.2 g/dL (13.6-17.9) L D 11/25/24 04:40 Hct 36.5 % (39.6-49.0) L 11/25/24 04:40 Plt Count 115 thou/uL (152-406) L 11/25/24 04:40 PT 12.1 SECONDS (9.4-12.5) 11/23/24 19:00 INR 1.08 11/23/24 19:00 Sodium 136 mEq/L (136-145) 11/25/24 04:40 Potassium 3.2 mEq/L (3.5-5.1) L 11/25/24 04:40 BUN 12 mg/dL (7-18) 11/25/24 04:40 Creatinine 0.76 mg/dL (0.70-1.30) 11/25/24 04:40 Glucose 156 mg/dL (74-106) H 11/25/24 04:40 Phosphorus 2.0 mg/dL (2.5-4.9) L 11/25/24 04:40 Magnesium 1.8 mg/dL (1.6-2.4) 11/25/24 04:40 Total Bilirubin 0.4 mg/dL (0.2-1.0) 11/23/24 19:00 AST 60 U/L (15-37) H 11/23/24 19:00 ALT 34 U/L (16-61) 11/23/24 19:00 Alkaline Phosphatase 83 U/L (45-117) 11/23/24 19:00 Home Medications: Divalproex Sodium [Depakote ER] 1,000 mg PO 0500,1300 04/29/21 Divalproex Sodium [Depakote ER] 5 tab PO BEDTIME 04/29/21 PHENobarbitaL [Phenobarbital*] 64.8 mg PO DAILY 04/29/21 Rosuvastatin Calcium 10 mg PO DAILY 04/29/21 Topiramate [Topamax] 200 mg PO BID 04/29/21 carBAMazepine [Carbatrol] 300 mg PO DAILY WITH BREAKFAST 04/29/21 carBAMazepine [Carbatrol] 600 mg PO BEDTIME 04/29/21 clonazePAM [Clonazepam] 1 mg PO TID 04/29/21 Levothyroxine Sodium 75 mcg PO DAILY 08/25/23 Sitagliptin Phos/Metformin HCl [Janumet 50-1,000 mg Tablet] 1 tab PO BID 08/25/23 Diet: AHA Activity: Fall precautions Followup: John Subramanian DO [Primary Care Provider] - 1-2 Weeks Terrell Lawson MD [ACTIVE - CAN ADMIT] - Time spent managing pt's care (in minutes): 45
[2024-11-25] MEDS: PHENOBARBITAL 30 MG TABLET PO SCH (13:43)
[2024-11-25] MEDS: clonazePAM 1 MG TAB PO SCH (13:43)
[2024-11-25] MEDS: levETIRAcetam 1,000 MG in NA CHLORIDE 0.9% 100 ML IV ONE (13:45)
[2024-11-25 19:01] LABS: Phosphorus 3.5 mg/dL (2.5-4.9); Potassium 3.6 mEq/L (3.5-5.1)
[2024-11-25] MEDS ORDERED: CARBAMAZEPINE 300 MG PO SCH (21:00)
[2024-11-25] MEDS: METFORMIN HCL PO SCH (21:00)
[2024-11-25] MEDS: DIVALPROEX ER 250 MG TAB PO SCH (21:00)
[2024-11-25] MEDS: SITAGLIPTIN PHOS PO SCH (21:00)
[2024-11-25] MEDS: carBAMazepine 200 MG TAB PO SCH (22:07)
[2024-11-25] MEDS: TOPIRAMATE 100 MG TAB PO SCH (22:07)
[2024-11-26] MEDS: DIVALPROEX ER 250 MG TAB PO SCH ×2 (05:00→05:59)
[2024-11-26 05:18] LABS: Absolute Lymphocytes (CBC) 0.9 K/uL (0.7-4.9); Absolute Monocytes 0.2 K/uL (0.1-1.3); Hemoglobin 12.4 g/dL (13.6-17.9); Nucleated Red Blood Cells % 0.2 % (0-0); Red Cell Distribution Width 14.5 % (12.1-15.2)
[2024-11-26 05:27] LABS: Basophils % 0.3 % (0-1.3); Eosinophils % 0.2 % (0-4.4); Hematocrit 37.6 % (39.6-49.0); MCH 30.9 pg (27.0-35.0); MCHC 32.9 g/dL (32.0-36.0); MCV 93.8 fL (80-100); MPV 6.8 fL (7.6-11.3); Monocytes % 4.9 % (3.3-12.3); Neutrophils % 72.6 % (41.7-73.7); Platelets 112 thou/uL (152-406); RBC Red Blood Cell Count 4.01 M/uL (4.33-5.43)
[2024-11-26 05:30] LABS: Albumin 2.5 g/dL (3.4-5.0); Anion Gap 10.9 mEq/L (5.0-15.0); Magnesium 1.7 mg/dL (1.6-2.4); Phosphorus 2.5 mg/dL (2.5-4.9); Potassium 3.9 mEq/L (3.5-5.1)
[2024-11-26] MEDS ORDERED: CARBAMAZEPINE 300 MG PO SCH (08:00)
[2024-11-26 08:20] VITALS: O2SAT 90
[2024-11-26 08:36] VITALS: BP 151/85; TEMP 99.7
[2024-11-26] MEDS ORDERED: POTASSIUM 25 MEQ EFFERV TAB PO ONE (09:00)
[2024-11-26] MEDS: POTASSIUM PHOS IN 0.9 % NACL 15 MMOL/250 ML BAG IV ONE (09:00)
[2024-11-26 09:10] LABS: Band Neutrophils 11 % (0-1); Differential Total Cells Count 100; Lymphocytes 25 % (15-42); Monocytes 9 % (0-10); Segmented Neutrophils 54 % (40-80)
[2024-11-26 09:11] LABS: Atypical Lymphocytes 1 %; Blood Morphology Comment NOT SEEN (NOT SEEN); Platelet Estimate DECR
[2024-11-26] MEDS: ROSUVASTATIN 10 MG TAB PO SCH (10:08)
[2024-11-26] MEDS: carBAMazepine 200 MG TAB PO SCH (10:11)
[2024-11-26] MEDS: MAGNESIUM SULFATE 1 gm IVPB 1 GM/100 ML BAG IV ONE (10:20)
== END 2024-11-26 12:11 | disposition home or self-care (01) | DRG 637 ==
LOC: ER 18:05 → ERHOLD 21:47 → 2ND 22:35
PROVIDERS: ADMIT Internal Medicine; ATTEND Hospitalist
DX: E11.65 Type 2 diabetes mellitus with hyperglycemia (principal); G92.9 Unspecified toxic encephalopathy; B37.49 Other urogenital candidiasis; D61.818 Other pancytopenia; E11.40 Type 2 diabetes mellitus with diabetic neuropathy, unspecified; Z79.4 Long term (current) use of insulin; G40.909 Epilepsy, unspecified, not intractable, without status epilepticus; F31.9 Bipolar disorder, unspecified; Z90.49 Acquired absence of other specified parts of digestive tract; W19.XXXA Unspecified fall, initial encounter; Z91.81 History of falling; M47.9 Spondylosis, unspecified; M48.05 Spinal stenosis, thoracolumbar region; E66.9 Obesity, unspecified; Z68.34 Body mass index [BMI] 34.0-34.9, adult; J06.9 Acute upper respiratory infection, unspecified
CPT/HCPCS: 36415; 70450; 70551; 71045; 71260; 72125; 72141; 72146; 72148; 72170; 74177; 80048; 80069; 80076; 80307; 81001; 82550; 82947; 83036; 83605; 83735; 84100; 84132; 84439; 84443; 84481; 84484; 85025; 85610; 87040; 87086; 87088; 87205; 94640; 96361; 96365; 96375; 97116; 97161; 97165; 97530; 99285; J0696; J1644; J1815; J1940; J1953; J3475; J7030; J7613; J7614; Q9967

== ENCOUNTER 2024-12-07 20:00 | Emergency (ER) | payer OTHER ==
[2024-12-07] MEDS ORDERED: ONDANSETRON 4 MG/2 ML VIAL ONE (21:18)
[2024-12-07] MEDS ORDERED: MORPHINE 4 MG/ML SYR ONE (21:18)
[2024-12-07] MEDS ORDERED: NA CHLORIDE 0.9% 1,000 ML ONE (21:18)
[2024-12-07 21:22] LABS: Absolute Basophils 0.1 K/uL (0-0.5); Absolute Eosinophils 0.1 K/uL (0-0.5); Absolute Lymphocytes (CBC) 3.3 K/uL (0.7-4.9); Absolute Monocytes 0.3 K/uL (0.1-1.3); Absolute Neutrophil 4.9 K/uL (1.8-8.0); Hematocrit 36.8 % (39.6-49.0); Hemoglobin 12.4 g/dL (13.6-17.9); Lymphocytes % 38.4 % (15.3-44.8); MCH 31.6 pg (27.0-35.0); MCHC 33.8 g/dL (32.0-36.0); MCV 93.5 fL (80-100); MPV 7.3 fL (7.6-11.3); Monocytes % 3.1 % (3.3-12.3); Neutrophils % 56.5 % (41.7-73.7); Nucleated Red Blood Cells % 0.4 % (0-0); Platelets 150 thou/uL (152-406); RBC Red Blood Cell Count 3.93 M/uL (4.33-5.43); Red Cell Distribution Width 14.3 % (12.1-15.2)
[2024-12-07 21:26] LABS: PT Prothrombin Time 10.2 SECONDS (9.4-12.5); Protime INR 0.97
[2024-12-07 21:38] LABS: ALT/SGPT 16 U/L (16-61); AST/SGOT 12 U/L (15-37); Albumin 2.8 g/dL (3.4-5.0); Albumin/Globulin Ratio 0.6 (1.1-1.8); Alkaline Phosphatase 83 U/L (45-117); BUN Blood Urea Nitrogen 12 mg/dL (7-18); Bicarbonate 24 mEq/L (21-32); Bilirubin Total 0.3 mg/dL (0.2-1.0); Globulin 4.4 g/dL (2.3-3.5); Glomerular Filtration Rate 102 ml/min (=/>90); Glucose Level 162 mg/dL (74-106); Magnesium 1.5 mg/dL (1.6-2.4); NT PRO-BNP 227 pg/mL (<125); Protein, Total 7.2 g/dL (6.4-8.2); Sodium Level 136 mEq/L (136-145); Troponin High Sensitivity 11.9 pg/mL (<58.9)
[2024-12-07 21:48] LABS: Bilirubin Direct < 0.2 mg/dL (0-0.2); Bilirubin Indirect, Calculated 0.1 mg/dL (0.2-0.8)
--- NOTE | 2024-12-07 21:53 | RAD REPORT ---
EXAM: CT CHEST, ABDOMEN AND PELVIS WITHOUT CONTRAST CLINICAL INDICATION: Male, 54 years old. [facility] MAIN back pain Bed Name: 5 TECHNIQUE: CT chest, abdomen and pelvis was performed, without IV contrast, as per department protoco l. Axial, sagittal and coronal reconstructions were obtained. One or more of the following dose reduction techniques were used: Automated exposure control, adjustment of the mA and/or kV according to the patient size, and/or iterative reconstruction. Unless otherwise specified, incidental findings do not require dedicated imaging follow-up. COMPARISON: 11/23/2024 FINDINGS: The lack of intravenous contrast limits the sensitivity of this exam for evaluation of solid visceral organs, vascular structures, and retroperitoneum. Chest: LOWER NECK/CHEST WALL: Visualized thyroid gland and soft tissues are normal. LUNGS AND AIRWAYS: Airways are clear. No evidence of airspace or interstitial process. No nodules. PLEURA: No pleural effusion. No pneumothorax. Hemidiaphragms are normally positioned. MEDIASTINUM AND LYMPH NODES: No mediastinal mass or fluid collection. Normal size mediastinal, hilar, and axillary lymph nodes. THORACIC AORTA: Normal caliber and configuration. PULMONARY ARTERIES: Normal caliber. HEART: Unremarkable. Abdomen/Pelvis LIVER: Normal in size and contour. No focal lesion. GALLBLADDER/BILE DUCTS: No biliary ductal dilatation. PANCREAS: No mass, ductal dilation, or amparo-pancreatic fluid. SPLEEN: Normal size. No focal lesion. ADRENALS: Normal; no mass. KIDNEYS AND URETERS: Left exophytic mid pole 3.1 cm hepatic cyst. Normal size and contour otherwise. Left mid to lower pole 2-3 month. No hydronephrosis. GASTROINTESTINAL TRACT: Stomach is non-dilated. Small bowel has normal course and caliber. No colonic wall thickening or pericolonic inflammatory changes. PERITONEUM: No free fluid. LYMPH NODES: No lymphadenopathy. ABDOMINAL AORTA AND OTHER VESSELS: Normal caliber aorta and IVC. URINARY BLADDER: Normal contour. REPRODUCTIVE ORGANS: No pathologic process. MUSCULOSKELETAL: No acute or suspicious osseous abnormality. ADDITIONAL FINDINGS: None IMPRESSION: No acute or significant abnormalities in the chest, abdomen, or pelvis. Incidental findings as above.
[2024-12-07 21:58] LABS: Specific Gravity 1.027 (1.005-1.030); Sqamous Epithelial <5 /HPF (None Seen); Urine Bacteria None Seen /HPF (<20); Urine Bilirubin NEGATIVE (Negative); Urine Blood Negative (Negative); Urine Clarity Clear (Clear); Urine Color Yellow (Yellow); Urine Culture Reflex Order NOT NEEDED; Urine Glucose 3+ (Negative); Urine Ketones 1+ (Negative); Urine Micro Reflex YN NO BILL MICROSCOPIC; Urine Mucus Slight /HPF (None Seen); Urine Nitrite NEGATIVE (Negative); Urine Protein 1+ (Negative); Urine RBC <5 /HPF (None Seen); Urine Urobilinogen 1+ (Normal); Urine pH 6.5 (5.0-7.0)
--- NOTE | 2024-12-07 21:58 | RAD REPORT ---
EXAM: CT Head Brain Wo Cont HISTORY: confusion COMPARISON: 02/24/2024 TECHNIQUE: Multiple contiguous axial images were obtained for a CT of the brain without contrast. Sag ittal and coronal reformats were performed. One or more of the following dose reduction techniques were used: Automated exposure control, adjus tment of the mA and kV according to patient size, and iterative reconstruction. Unless otherwise specified, incidental findings do not require dedicated imaging follow-up. FINDINGS: No evidence of hydrocephalus, intracranial hemorrhage, or extra-axial fluid collection. Mild brain atrophy with mild periventricular and deep white matter chronic microvascular ischemic ch anges present. The calvarium is intact. The visualized paranasal sinuses and mastoid air cells are essentially clear . IMPRESSION: No evidence of acute intracranial abnormality.
[2024-12-07 22:49] LABS: Blood Morphology Comment NOT SEEN (NOT SEEN); Platelet Estimate ADEQ; White Blood Cell Scan OK (OK)
--- NOTE | 2024-12-07 23:38 | ER ---
Nurse's Notes [facility] Name: Rajat Camacho Age: 54 yrs Sex: Male : 1970 Arrival Date: 12/07/2024 Time: 20:00 Bed 5 Private MD: John Subramanian Diagnosis: Acute Bilateral Knee Pain, Bilateral Leg Weakness, Spinal Stenosis, Exacerbation of Chronic Back Pain Presentation: 12/07 20:14 Chief complaint: Patient states: left leg and back pain. Also reports diarrhea. cp4 Coronavirus screen: Client denies travel out of the [place] in the last 14 days. At this time, the client does not indicate any symptoms associated with coronavirus-19. Ebola Screen: Patient negative for fever greater than or equal to 101.5 degrees Fahrenheit, and additional compatible Ebola Virus Disease symptoms Patient denies exposure to infectious person. Patient denies travel to an Ebola-affected area in the 21 days before illness onset. No symptoms or risks identified at this time. Initial Sepsis Screen: Does the patient meet any 2 criteria? HR > 90 bpm. No. Patient's initial sepsis screen is negative. Does the patient have a suspected source of infection? No. Patient's initial sepsis screen is negative. Risk Assessment: Do you want to hurt yourself or someone else? Patient reports no desire to harm self or others. Onset of symptoms is unknown. 20:14 Method Of Arrival: Wheelchair cp4 20:14 Acuity: CARLIN 3 cp4 Triage Assessment: 20:16 General: Appears in no apparent distress. uncomfortable, Behavior is calm, cooperative, cp4 appropriate for age. Pain: Complains of pain in left leg. Historical: - Allergies: 20:16 No Known Allergies; cp4 - PMHx: 20:16 Bipolar disorder; Diabetes - NIDDM; epilepsy; Hypercholesterolemia; Seizures; cp4 - Immunization history:: Adult Immunizations up to date. - Infectious Disease History:: Denies. - Social history:: Smoking status: Patient denies any tobacco usage or history of. - Family history:: not pertinent. Screenin:05 [facility] ED Fall Risk Assessment (Adult) History of falling in the last 3 months, ha1 including since admission Yes- single mechanical fall (1 pt) Confusion or Disorientation Yes (5 pts) Intoxicated or Sedated No (0 pts) Impaired Gait Yes (1 pt) Mobility Assist Device Used Yes (1 pt) Altered Elimination No (0 pt) Score/Fall Risk Level 3 or more points = High Risk Oriented to surroundings, Maintained a safe environment, Educated pt \T\ family on fall prevention, incl call for assistance when getting out of bed, Provided non-skid footwear, Hourly rounding (assess needs \T\ fall precautionary measures) done, Implemented a Fall Risk Plan of Care. Abuse screen: Denies threats or abuse. Denies injuries from another. Nutritional screening: No deficits noted. Tuberculosis screening: No symptoms or risk factors identified. Assessment: 20:05 General: Appears uncomfortable, Behavior is cooperative. Pain: Complains of pain in ha1 left leg and bilateral knee pain Pain does not radiate. Pain currently is 7 out of 10 on a pain scale. Quality of pain is described as aching, Pain began years ago. Is chronic, Alleviated by medications, Aggravated by increased activity, repositioning, weight bearing. Neuro: Level of Consciousness is awake, alert, obeys commands, confused, forgetful . Cardiovascular: Patient's skin is warm and dry. Respiratory: Airway is patent Respiratory effort is even, unlabored, Respiratory pattern is regular, symmetrical. Derm: Skin is pink, warm \T\ dry. Musculoskeletal: Range of motion: limited in left leg. 21:45 Reassessment: Patient and/or family updated on plan of care and expected duration. Pain ha1 level reassessed. Patient is alert, oriented x 3, equal unlabored respirations, skin warm/dry/pink. Patient states feeling better. Patient states symptoms have improved. Vital Signs: 20:14 BP 139 / 92; Pulse 100; Resp 18; Temp 98.4; Pulse Ox 100% ; Weight 117.48 kg; Height 6 cp4 ft. 2 in. ; Pain 10/10; 20:51 BP 132 / 68; Pulse 99; Resp 18 S; Pulse Ox 93% on R/A; ha1 21:45 BP 137 / 78; Pulse 85; Resp 17 S; Temp 98.9(O); Pulse Ox 95% on R/A; ha1 23:00 BP 139 / 77; Pulse 84; Resp 16; Temp 98.5(O); Pulse Ox 97% on R/A; dd2 12/08 00:10 BP 142 / 76; Pulse 82; Resp 17; Pulse Ox 95% on R/A; dd2 12/07 20:14 Body Mass Index 33.25 (117.48 kg, 187.96 cm) cp4 12/07 20:14 Pain Scale: Adult cp4 Marie Coma Score: 12/07 23:49 Eye Response: spontaneous(4). Motor Response: obeys commands(6). Verbal Response: sp4 confused(4). Total: 14. ED Course: 20:04 Patient arrived in ED. gm2 20:05 John Subramanian DO is Private Physician. gm2 20:05 Heriberto Valdes MD is Attending Physician. sp4 20:05 Patient has correct armband on for positive identification. Placed in gown. Bed in low ha1 position. Call light in reach. Side rails up X2. Adult w/ patient. 20:16 Triage completed. cp4 20:16 Arm band placed on right wrist. Patient placed in waiting room. cp4 20:45 Initial lab(s) drawn, by me, sent to lab. First set of blood cultures drawn by me. vk 21:00 Second set of blood cultures drawn by me. vk 21:15 CT Head Brain wo Cont In Process Unspecified. EDMS 21:15 Basic Metabolic Panel Sent. ha1 21:15 CBC with Diff Sent. ha1 21:15 LFT's Sent. ha1 21:15 Magnesium Sent. ha1 21:15 NT PRO-BNP Sent. ha1 21:15 PT-INR Sent. ha1 21:15 Troponin HS Sent. ha1 21:16 CRP Sent. ha1 21:16 Alcohol Level Sent. ha1 21:16 Lactate w/ 2H reflex if indic. Sent. ha1 21:16 Blood Culture Adult (2) Sent. ha1 21:19 CT Chest Abdomen Pelvis W/O Contrast In Process Unspecified. EDMS 21:19 Inserted saline lock: 20 gauge in right antecubital area, using aseptic technique. vk Blood collected. Flushed with 10 mL NS. 21:32 EKG done, by ED staff. vk 23:36 John Subramanian DO is Referral Physician. sp4 12/08 00:07 ALFONZO WALDRON, RN is Primary Nurse. dd2 00:10 Provided Education on: D/C EDUCATION. dd2 00:10 No provider procedures requiring assistance completed. IV discontinued, intact, dd2 bleeding controlled, No redness/swelling at site. Pressure dressing applied. Administered Medications: 12/07 21:15 Drug: NS 0.9% IV 1000 ml IV at 1 bolus Per protocol; to be given as a bolus over 60 ha1 minutes Route: IV; Rate: 1 bolus; Site: right antecubital; 22:15 Follow up: IV Status: Completed infusion; IV Intake: 1000ml dd2 21:15 Drug: Ondansetron IVP 4 mg IVP once; over 2 minutes Route: IVP; Site: right antecubital;ha1 21:45 Follow up: Response: No adverse reaction; Marked relief of symptoms ha1 21:17 Drug: morphine IVP or IV 4 mg IVP once over 4 mins Route: IVP; Infused Over: 4 mins; ha1 Site: right antecubital; 21:45 Follow up: Response: No adverse reaction; Marked relief of symptoms; RASS: Alert and ha1 Calm (0) 23:31 CANCELLED (Physician Discretion): vancomycin2 grams IVPB at calculated rate once sp4 23:31 Not Given (Physician Discretion): ns 0.9% 1000 ml IV at 125 ml/hr Per protocol; to be sp4 given as a bolus over 60 minutes 23:31 CANCELLED (Physician Discretion): cefepime2 grams IVPB at 200 ml/hr once over 30 mins; sp4 (mix in NS 100 mL) 12/08 00:07 Drug: HYDROcodone-acetaminophen PO 5 mg-325 mg 2 tabs PO once Route: PO; dd2 00:12 Follow up: Response: Medication administered at discharge. dd2 00:07 Drug: Diphenoxylate-Atropine PO 2 tabs PO once Route: PO; dd2 00:11 Follow up: Response: Medication administered at discharge. dd2 00:07 Drug: Ketorolac PO 10 mg PO once Route: PO; dd2 00:11 Follow up: Response: Medication administered at discharge. dd2 Medication: 00:10 VIS not applicable for this client. dd2 Intake: 12/07 22:15 IV: 1000ml; Total: 1000ml. dd2 Outcome: 23:37 Discharge ordered by sp4 12/08 00:10 Discharged to home via wheelchair, with significant other, dd2 Condition: stable Discharge instructions given to patient, family, Instructed on discharge instructions, follow up and referral plans. medication usage, Demonstrated understanding of instructions, follow-up care, medications, Prescriptions given X 3, 00:11 Patient left the ED. dd2 Signatures: Dispatcher [employer] EDMS Kelly Walton, RN RN ha1 Heriberto Valdes MD MD sp4 Shirin Casillas cp4 Dariana Guzman 2 Michelle Fenton DIANA, RN RN dd2 Corrections: (The following items were deleted from the chart) 00:10 12/07 23:00 BP 142 / 76; Pulse 82bpm; Resp 17bpm; Pulse Ox 95% RA; dd2 dd2
--- NOTE | 2024-12-07 23:38 | EDPHYS ---
Physician Documentation [facility] Name: Rajat Camacho Age: 54 yrs Sex: Male : 1970 Arrival Date: 12/07/2024 Time: 20:00 Bed 5 Private MD: John Subramanian ED Physician Heriberto Valdes HPI: 12/07 20:05 This 54 yrs old Male presents to ER via Unassigned with complaints of Leg sp4 Pain, Pt unable to walk due to pain. 20:27 CLINICAL INDICATION: Bilateral lower extremity weakness TECHNIQUE: Multiplanar sp4 multisequence MR images were obtained of the lumbar spine without intravenous contrast. Unless otherwise specified, incidental findings do not require dedicated imaging follow-up. [id number]. COMPARISON: 2016 FINDINGS: No significant abnormality L1-2, L2-3 and L3-4 Asymmetric disc bulge L4-5 more prominent right posterior laterally. Ligamentum flavum and facet hypertrophy. Thecal sac 5.5 mm. Moderate bilateral foraminal stenosis. Mild posterior subluxation L5 on S1. Moderate broad-based disc herniation L5-S1 extending centrally and to the right and left. It abuts the left S1 nerve root. Epidural lipomatosis is present. Thecal sac 4 mm. Ligamentum flavum and facet hypertrophy. Marked narrowing of the left and moderate to marked narrowing right neural foramina. No significant abnormal signal within the bones IMPRESSION: Spondylosis L4-5 results in moderate stenosis Broad base disc herniation L5-S1. This in combination with spondylosis results in marked left foraminal stenosis and marked central spinal stenosis. . Old record review 11/24/2024 --EXAMINATION: Thoracic Spine Wo Contr CLINICAL INDICATION: Bilateral lower extremity numbness TECHNIQUE: Multiplanar multisequence MR images were obtained of the thoracic spine without intravenous contrast. Unless otherwise specified, incidental findings do not require dedicated imaging follow-up. [id number]. COMPARISON: CT November 23, 2024 FINDINGS: Small to moderate left posterior lateral disc osteophyte complex T11-12. Mild spondylosis involves additional levels of the thoracic spine Spinal cord normal caliber and signal. No significant abnormal signal bones. IMPRESSION: Small left to moderate posterior lateral disc osteophyte complex T11-12 . CLINICAL INDICATION: Bilateral lower extremity weakness TECHNIQUE: Multiplanar multisequence MR images were obtained of the cervical spine without intravenous contrast. Unless otherwise specified, incidental findings do not require dedicated imaging follow-up. COMPARISON: CT November 23, 2024 FINDINGS: Craniocervical junction unremarkable Mild spondylosis C2-3, C3-4, C5-6, C6-7 and C7-T1 Uncal vertebral hypertrophy and small osteophytes C4-5 results in moderate narrowing of the right and mild narrowing of the left neural foramina. Spinal cord is normal caliber and signal. No significant abnormal signal within the bones. Graph IMPRESSION: Spondylosis C4-5 results in moderate right foraminal stenosis . Report Status: Signed EXAMINATION: MRI BRAIN WITHOUT CONTRAST CLINICAL INDICATION: Head injury status post fall. Alteration of consciousness. TECHNIQUE: Multiplanar multisequence MR images of the brain were obtained without intravenous contrast. Unless otherwise specified, incidental findings do not require dedicated imaging follow-up. COMPARISON: Head CT November 23, 2024. FINDINGS: No significant abnormal signal within the brain Diffusion weighted/ADC mapping does not demonstrate evidence of an acute infarction. Ventricles are normal caliber. No extra-axial fluid collection. No fluid within the sinuses/mastoid seen IMPRESSION: No acute intracranial abnormalities displayed . 23:49 Patient Mr. Camacho is a 54-year-old male with past medical history of spinal lumbar sp4 stenosis, diabetes mellitus, bipolar disorder, epilepsy, hypercholesterolemia and seizures, presents with reported complaint leg pain bilateral lower extremity pain particularly left lower extremity pain associated with bilateral leg weakness worse on the left. Patient also complains of persistent diarrhea and having difficulty with ambulating to the bathroom. Patient was admitted here 11/23/2024 through 11/26/2024 for lumbar stenosis, recurrent falls, generalized weakness, altered mental status, UTI. Also hyperglycemia. At that time patient's MRI revealed significant lumbar spinal stenosis. In particular it has revealed spondylosis L4-L5 with moderate stenosis with broad-based disc herniation L5-S1. This combination results is marked left foraminal stenosis and marked central canal stenosis. . 23:49 Patient's list of medications includes Depakote ER 1000 mg twice a day, phenobarbital sp4 64.8 mg daily, rosuvastatin 10 mg daily, Topamax 200 mg twice daily, carbamazepine 300 in the morning and 600 in the evening, clonazepam 1 mg p.o. 3 times daily, Synthroid 75 mcg daily, sitagliptin metformin or Janumet twice daily.. Historical: - Allergies: 20:16 No Known Allergies; cp4 - PMHx: 20:16 Bipolar disorder; Diabetes - NIDDM; epilepsy; Hypercholesterolemia; Seizures; cp4 - Immunization history:: Adult Immunizations up to date. - Infectious Disease History:: Denies. - Social history:: Smoking status: Patient denies any tobacco usage or history of. - Family history:: not pertinent. ROS: 23:49 Constitutional: Negative for fever, chills, and weight loss, positive for bilateral leg sp4 pain, positive for back pain, positive for diarrhea, positive for bilateral lower extremity weakness. 23:49 All other systems are negative, Exam: 23:49 Constitutional: This is a well developed, well nourished patient who is awake, patient sp4 is confused male who has difficulty answering questions, appears to have generalized weakness with a difficult ambulatory status. Able to stand up with assistance. Head/Face: Normocephalic, atraumatic. Eyes: Pupils equal round and reactive to light, extra-ocular motions intact. Lids and lashes normal. Conjunctiva and sclera are not injected. Cornea within normal limits. Periorbital areas with no swelling, redness, or edema. ENT: Nares patent. No nasal discharge, no septal abnormalities noted. Tympanic membranes are normal and external auditory canals are clear. Oropharynx with no redness, swelling, or masses, exudates, or evidence of obstruction, uvula midline. Mucous membranes moist. Neck: Trachea midline, no thyromegaly or masses palpated, and no cervical lymphadenopathy. Supple, full range of motion without nuchal rigidity, or vertebral point tenderness. Chest/axilla: Normal chest wall appearance and motion. Nontender with no deformity. No lesions are appreciated. Cardiovascular: Regular rate and rhythm with a normal S1 and S2. No gallops, murmurs, or rubs. Normal PMI, no JVD. No pulse deficits. Respiratory: Lungs have equal breath sounds bilaterally, clear to auscultation and percussion. No rales, rhonchi or wheezes noted. No increased work of breathing, no retractions or nasal flaring. Abdomen/GI: Soft, with normal bowel sounds. No distension or tympany. No guarding or rebound. No evidence of tenderness throughout. Back: No spinal tenderness. No costovertebral tenderness. Skin: Warm, dry with normal turgor. Normal color with no rashes, no lesions, and no evidence of cellulitis. MS/ Extremity: Pulses equal, no cyanosis. Neurovascular intact. Full, normal range of motion. Neuro: Awake and alert, GCS 15, oriented to person, place, Cranial nerves II-XII grossly intact. Motor strength 5/5 in all extremities. Sensory grossly intact. Strength intact bilateral lower extremities Psych: Awake, alert, with orientation to person, place - patient does seem mildly confused has difficulty answering questions 23:49 ECG was reviewed by the Attending Physician. EKG 2128 sinus rhythm at rate 97 otherwise normal. Vital Signs: 20:14 BP 139 / 92; Pulse 100; Resp 18; Temp 98.4; Pulse Ox 100% ; Weight 117.48 kg; Height 6 cp4 ft. 2 in. ; Pain 10/10; 20:51 BP 132 / 68; Pulse 99; Resp 18 S; Pulse Ox 93% on R/A; ha1 21:45 BP 137 / 78; Pulse 85; Resp 17 S; Temp 98.9(O); Pulse Ox 95% on R/A; ha1 23:00 BP 139 / 77; Pulse 84; Resp 16; Temp 98.5(O); Pulse Ox 97% on R/A; dd2 12/08 00:10 BP 142 / 76; Pulse 82; Resp 17; Pulse Ox 95% on R/A; dd2 12/07 20:14 Body Mass Index 33.25 (117.48 kg, 187.96 cm) cp4 12/07 20:14 Pain Scale: Adult cp4 Startex Coma Score: 12/07 23:49 Eye Response: spontaneous(4). Motor Response: obeys commands(6). Verbal Response: sp4 confused(4). Total: 14. MDM: 20:24 Medical Screening Exam initiated sp4 23:57 Differential diagnosis: dislocation, contusion, abrasion, tendonitis. Data reviewed: sp4 vital signs, nurses notes, old medical records, lab test result(s), radiologic studies, CT scan. Consideration of Admission/Observation Escalation of care including admission/observation considered. ED course: Because of mild confusion I have discussed with the patient and his admission to the hospital. At this time there is no apparent cause for medical delirium however, there is also no sign of emergent medical. Problem. Patient does have longstanding lumbar spinal stenosis as evidenced by his recent MRI on 11/24/2024. Patient warrants visit neurosurgery consultation for lower back pain. Diabetes currently under control. Patient is stable for discharge home. Advised to patient's spouse to bring patient back in case of any other concerns or in case confusion becomes worse.. 12/08 00:00 ED course: EXAM: CT Head Brain Wo Cont HISTORY: confusion COMPARISON: 02/24/2024 sp4 TECHNIQUE: Multiple contiguous axial images were obtained for a CT of the brain without contrast. Sagittal and coronal reformats were performed. One or more of the following dose reduction techniques were used: Automated exposure control, adjustment of the mA and kV according to patient size, and iterative reconstruction. Unless otherwise specified, incidental findings do not require dedicated imaging follow-up. FINDINGS: No evidence of hydrocephalus, intracranial hemorrhage, or extra-axial fluid collection. Mild brain atrophy with mild periventricular and deep white matter chronic microvascular ischemic changes present. The calvarium is intact. The visualized paranasal sinuses and mastoid air cells are essentially clear. IMPRESSION: No evidence of acute intracranial abnormality. . ED course: EXAM: CT CHEST, ABDOMEN AND PELVIS WITHOUT CONTRAST CLINICAL INDICATION: Male, 54 years old. [facility] back pain Bed Name: 5 TECHNIQUE: CT chest, abdomen and pelvis was performed, without IV contrast, as per department protocol. Axial, sagittal and coronal reconstructions were obtained. One or more of the following dose reduction techniques were used: Automated exposure control, adjustment of the mA and/or kV according to the patient size, and/or iterative reconstruction. Unless otherwise specified, incidental findings do not require dedicated imaging follow-up. COMPARISON: 11/23/2024 FINDINGS: The lack of intravenous contrast limits the sensitivity of this exam for evaluation of solid visceral organs, vascular structures, and retroperitoneum. Chest: LOWER NECK/CHEST WALL: Visualized thyroid gland and soft tissues are normal. LUNGS AND AIRWAYS: Airways are clear. No evidence of airspace or interstitial process. No nodules. PLEURA: No pleural effusion. No pneumothorax. Hemidiaphragms are normally positioned. MEDIASTINUM AND LYMPH NODES: No mediastinal mass or fluid collection. Normal size mediastinal, hilar, and axillary lymph nodes. THORACIC AORTA: Normal caliber and configuration. PULMONARYARTERIES: Normal caliber. HEART: Unremarkable. Abdomen/Pelvis LIVER: Normal in size and contour. No focal lesion. GALLBLADDER/BILE DUCTS: No biliary ductal dilatation. PANCREAS: No mass, ductal dilation, or amparo-pancreatic fluid. SPLEEN: Normal size. No focal lesion. ADRENALS: Normal; no mass. KIDNEYS AND URETERS: Left exophytic mid pole 3.1 cm hepatic cyst. Normal size and contour otherwise. Left mid to lower pole 2-3 month. No hydronephrosis. GASTROINTESTINAL TRACT: Stomach is non-dilated. Small bowel has normal course and caliber. No colonic wall thickening or pericolonic inflammatory changes. PERITONEUM: No free fluid. LYMPH NODES: No lymphadenopathy. ABDOMINAL AORTA AND OTHER VESSELS: Normal caliber aorta and IVC. URINARYBLADDER: Normal contour. REPRODUCTIVE ORGANS: No pathologic process. MUSCULOSKELETAL: No acute or suspicious osseous abnormality. ADDITIONAL FINDINGS: None IMPRESSION: No acute or significant abnormalities in the chest, abdomen, or pelvis. Incidental findings as above. . 12/07 20:21 Order name: Basic Metabolic Panel; Complete Time: 22:53 12/07 20:21 Order name: CBC with Diff; Complete Time: 22:53 [facility] 12/07 20:21 Order name: LFT's; Complete Time: 22:53 [facility] 12/07 20:21 Order name: Magnesium; Complete Time: 22:53 [facility] 12/07 20:21 Order name: NT PRO-BNP; Complete Time: 22:53 [facility] 12/07 20:21 Order name: PT-INR; Complete Time: 21:45 12/07 20:21 Order name: Troponin HS; Complete Time: 22:53 [facility] 12/07 20:22 Order name: Urinalysis W/Microscopic; Complete Time: 22:53 [facility] 12/07 20:22 Order name: Blood Culture Adult (2) 12/07 20:24 Order name: Alcohol Level; Complete Time: 21:45 [facility] 12/07 20:24 Order name: Lactate w/ 2H reflex if indic.; Complete Time: 22:53 [facility] 12/07 20:24 Order name: CRP; Complete Time: 21:45 sp4 12/07 21:28 Order name: CBC Smear Scan; Complete Time: 22:53 EDMS 12/07 21:50 Order name: AMMONIA; Complete Time: 22:53 4 12/07 21:55 Order name: Ghost Lactate-NO COLLECT Timer; Complete Time: 00:09 EDMS 12/07 21:57 Order name: T4 Free; Complete Time: 22:53 EDMS 12/07 21:57 Order name: Thyroid Stimulating Hormone; Complete Time: 22:53 EDHI 12/07 20:22 Order name: CT Head Brain wo Cont; Complete Time: 22:53 4 12/07 20:24 Order name: CT Chest Abdomen Pelvis W/O Contrast; Complete Time: 22:53 [facility] 12/07 20:21 Order name: EKG; Complete Time: 20:22 4 12/07 20:21 Order name: Cardiac monitoring; Complete Time: 21:15 4 12/07 20:21 Order name: EKG - Nurse/Tech; Complete Time: 21:32 [facility] 12/07 20:21 Order name: IV Saline Lock; Complete Time: 21:15 4 12/07 20:21 Order name: Labs collected and sent; Complete Time: 21:15 sp4 12/07 20:21 Order name: O2 Per Protocol; Complete Time: 21:15 4 12/07 20:21 Order name: O2 Sat Monitoring; Complete Time: 21:15 sp4 EC/19 21:28 Rate is 97 beats/min. Rhythm is regular, Normal Sinus Rhythm. QRS [place] is Normal. OK sp4 interval is normal. QRS interval is normal. QT interval is normal. No Q waves. T waves are Normal. No ST changes noted. Clinical impression: Normal ECG. Interpreted by me. Reviewed by me. Administered Medications: 21:15 Drug: NS 0.9% IV 1000 ml IV at 1 bolus Per protocol; to be given as a bolus over 60 ha1 minutes Route: IV; Rate: 1 bolus; Site: right antecubital; 22:15 Follow up: IV Status: Completed infusion; IV Intake: 1000ml dd2 21:15 Drug: Ondansetron IVP 4 mg IVP once; over 2 minutes Route: IVP; Site: right antecubital;ha1 21:45 Follow up: Response: No adverse reaction; Marked relief of symptoms ha1 21:17 Drug: morphine IVP or IV 4 mg IVP once over 4 mins Route: IVP; Infused Over: 4 mins; ha1 Site: right antecubital; 21:45 Follow up: Response: No adverse reaction; Marked relief of symptoms; RASS: Alert and ha1 Calm (0) 23:31 CANCELLED (Physician Discretion): vancomycin2 grams IVPB at calculated rate once sp4 23:31 Not Given (Physician Discretion): ns 0.9% 1000 ml IV at 125 ml/hr Per protocol; to be sp4 given as a bolus over 60 minutes 23:31 CANCELLED (Physician Discretion): cefepime2 grams IVPB at 200 ml/hr once over 30 mins; sp4 (mix in NS 100 mL) 12/08 00:07 Drug: HYDROcodone-acetaminophen PO 5 mg-325 mg 2 tabs PO once Route: PO; dd2 00:12 Follow up: Response: Medication administered at discharge. dd2 00:07 Drug: Diphenoxylate-Atropine PO 2 tabs PO once Route: PO; dd2 00:11 Follow up: Response: Medication administered at discharge. dd2 00:07 Drug: Ketorolac PO 10 mg PO once Route: PO; dd2 00:11 Follow up: Response: Medication administered at discharge. dd2 Disposition Summary: 12/07/24 23:37 Discharge Ordered Notes: Location: Home sp4 Problem: new sp4 Symptoms: have improved sp4 Condition: Stable sp4 Diagnosis - Acute Bilateral Knee Pain, Bilateral Leg Weakness, Spinal Stenosis, Exacerbation sp4 of Chronic Back Pain Followup: sp4 - With: John Subramanian DO - When: 7 - 10 days - Reason: Recheck today's complaints Discharge Instructions: - Discharge Summary Sheet sp4 - Diarrhea, Adult, [id number] sp4 Forms: - Patient Portal Instructions sp4 Prescriptions: - acetaminophen-codeine 300-60 mg Oral tablet - take 1 tablet ORAL route every 8 hours PRN pain; 20 tablet; Refills: 0, Product sp4 Selection Permitted - Lomotil 2.5-0.025 mg Oral tablet - take 1 tablet ORAL route every 8 hours As needed PRN diarrhea; 30 tablet; sp4 Refills: 0, Product Selection Permitted - methocarbamol 750 mg Oral tablet - take 2 tablets ORAL route every 8 hours for 2 days PRN muscle pain; 40 tablet; sp4 Refills: 0, Product Selection Permitted Signatures: Dispatcher [employer] EDMS Kelly Walton, RN RN ha1 Heriberto Valdes MD MD sp4 Shirin Casillas cp4 ALFONZO WALDRON RN RN dd2 Corrections: (The following items were deleted from the chart) 12/07 20:22 20:22 Head Brain Wo Cont+CT.RAD.BRZ ordered. EDMS EDMS 20:24 20:24 Chest Abdomen Pelvis Wo Con+CT.RAD.BRZ ordered. EDMS EDMS 21:25 20:22 Chest Single View+RAD.RAD.BRZ ordered. EDMS EDMS 21:56 21:51 THYROID STIMULAT HORMONE+C.LAB.BRZ ordered. EDMS EDMS 21:56 21:51 T4 FREE+C.LAB.BRZ ordered. EDMS EDMS 23:31 23:24 vancoMYCIN IVPB 2 grams IVPB at calculated rate once ordered. sp4 sp4 23:31 23:25 Cefepime IVPB 2 grams IVPB at 200 ml/hr once over 30 mins; (mix in NS 100 mL) sp4 ordered. sp4
[2024-12-07] MEDS ORDERED: HYDROCODONE/APAP 5/325 MG TAB ONE (23:44)
[2024-12-07] MEDS ORDERED: KETOROLAC 10 MG TAB ONE (23:44)
[2024-12-07] MEDS ORDERED: DIPHENOX/ATROP SULF 1 TAB PO ONE (23:45)
[2024-12-08 00:40] VITALS: TEMP 98.5
[2024-12-08 00:41] VITALS: BP 142/76; O2SAT 95
--- NOTE | 2024-12-11 13:05 | EKG ---
Test Date: 2024-12-07 Test Time: 21:28:00 Supervisor Advice: [place] MEASUREMENT RESULTS: Intervals: Rate: 97 KS: 132 QRSD: 84 QT: 338 QTc: 429 [place]: P: 59 KS: 132 QRS: 72 T: 61 INTERPRETIVE STATEMENTS: Sinus rhythm with fusion complexes Nonspecific T wave abnormality Abnormal ECG Compared to ECG 11/23/2024 18:54:42 Fusion complex(es) now present T-wave abnormality now present ST (T wave) deviation no longer present Electronically Signed On 12-11-24 13:00:35 INVESTIGATIONS DIRECTOR by Spencer Sierra
== END 2024-12-08 00:11 | disposition home or self-care (01) ==
LOC: ER 20:00
DX: R53.1 Weakness (principal); M48.061 Spinal stenosis, lumbar region without neurogenic claudication; M25.562 Pain in left knee; M25.561 Pain in right knee; M54.9 Dorsalgia, unspecified; E11.9 Type 2 diabetes mellitus without complications; E78.00 Pure hypercholesterolemia, unspecified
CPT/HCPCS: 96361; 87040 ×2; 85025; 81001; 80048; 36415; 82140; 83735; 85610; 80076; 83605; 84443; 84484; 84439; 83880; 86140; 70450; 71250; 74176; 96375; 96374; 99284; 82077; J2405; J7030; 93005